=== PATIENT | male | born 1945 | race Caucasian/White ===

== ENCOUNTER 2019-04-09 01:39 | Emergency (ER) | payer OTHER ==
[~2019-04-09] VITALS: Ht 175.3 cm; Wt 81.6 kg
[~2019-04-09 01:39] MED LIST: ALBU0.084 NEB; ALBUAER3 IN; BUPR150T42 PO; BUPR1TAB11 PO; CHOL400C12 PO; CYAN100056 PO; FLUN0.02; FORMPOW9 INH; LORA-352 PO; TIOTCAP INH; [UNRECOGNIZED DRUG - CODE] XX
[2019-04-09 08:46] VITALS: BP 155/75
[2019-04-09] MEDS ORDERED: NEOMYCIN-BACITRACIN-POLYM UNITDOSE PKG TOP OINT TOP ONE (10:00)
== END 2019-04-09 10:05 | disposition home or self-care (01) ==
LOC: EDBD 01:39 → ER 01:39
DX: S09.90XA Unspecified injury of head, initial encounter (principal); J44.9 Chronic obstructive pulmonary disease, unspecified; F17.210 Nicotine dependence, cigarettes, uncomplicated; W19.XXXA Unspecified fall, initial encounter; Y93.89 Activity, other specified; Y99.8 Other external cause status; Y92.89 Other specified places as the place of occurrence of the external cause
CPT/HCPCS: 70450; 72125

== ENCOUNTER 2024-09-09 23:29 | Inpatient (IN) | payer OTHER, MEDICARE ==
[~2024-09-09] VITALS: Ht 170.2 cm; Wt 60.1 kg
[~2024-09-09 23:29] MED LIST changes: +BUPR-133 PO; -BUPR1TAB11 PO; -LORA-352 PO; +LORA10TA6 PO
--- NOTE | 2024-09-09 23:56 | ED.PDOC ---
History of Present Illness HPI Comments 79-year-old comes to ER via EMS for generalized weakness. Patient has history of COPD. Was noted for the past 4 days, patient has been generally weak, with loss of appetite, decreased urine output, and no bowel movements for the past 4 days. Patient has been short of breath. Patient had a trip and fall earlier today, and hit his head the floor. Abrasion on his forehead. Chief Complaint: General Weakness Time Seen by MD: 23:55 Primary Care Provider: [facility] Reviewed Notes: Natural Developer Notes Allergies: Coded Allergies: NO KNOWN ALLERGIES (Unverified , 10/10/14) Home Meds Reported Medications Mometasone Furoate (MOMETASONE FUROATE) Pow, 1 XX BID, POW 10/11/14 Loratadine (Loratadine) 10 Mg Tab, 10 MG PO DAILY, TAB 10/11/14 Formoterol Fumarate (Formoterol Fumarate) Fumarate Pow, 12 MCG INH BID, POW 10/11/14 Flunisolide (Nasal) (Flunisolide) 0.025 % Spr, 2 SPRAY NA BID, #25 ML 3 Refills 10/11/14 Cyanocobalamin (B-12) 1,000 Mcg Cap, 1000 MCG PO DAILY, CAP 10/11/14 Cholecalciferol (D3) 400 Unit Cap, 400 UNIT PO DAILY, CAP 10/11/14 Bupropion Hcl (Bupropion Hcl Er) 150 Mg Tab, 1 TAB PO BID, #60 TAB 5 Refills 10/11/14 Bupropion Hcl (Budeprion Sr) 150 Mg Tab, 150 MG PO DAILY, #3 TAB 10/11/14 Albuterol Sulfate (Albuterol Sulfate) 0.083 % Neb, 1 VIAL NEB Q4HPRN, #50 VIAL 10/11/14 Albuterol Sulfate (VENTOLIN MDI) 90 Mcg Ih, 90 MCG IN QID 10/11/14 Tiotropium [place] Monohydrate (Spiriva Handihaler) Handihlr Cap, 1 CAP INH QID, #30 CAP 3 Refills 10/11/14 Information Source: Patient, Emergency Med Personnel Mode of Arrival: EMS Severity: Moderate Timing: Days Duration: Since onset Prehospital treatment: None Medication Refill: For: Other Past Medical History PAST MEDICAL HISTORY: Asthma, COPD, Depression Surgical History: Tonsillectomy Family History Family History: Reviewed,noncontributory to illness Social History Smoker: Cigarettes, Less Than 1 Pack/Day Alcohol: Occasionally Drugs: Denies Drug Use Lives In: Home Constitutional: reports: weakness; denies: chills, diaphoresis, fatigue, fever, malaise, sweats, others EENTM: denies: blurred vision, double vision, ear bleeding, ear discharge, ear drainage, ear pain, ear ringing, eye pain, eye redness, hearing loss, mouth pain, mouth swelling, nasal discharge, nose bleeding, nose congestion, nose pain, photophobia, tearing, throat pain, throat swelling, voice changes, others Respiratory: reports: SOB at rest, shortness of breath; denies: cough, hemoptysis, orthopnea, SOB with excertion, stridor, wheezing, others Cardiovascular: denies: chest pain, dizzy spells, diaphoresis, Dyspnea on exertion, edema, irregular heart beat, left arm pain, lightheadedness, palpit ations, PND, syncope, others Gastrointestinal: reports: constipated, nausea, poor appetite; denies: abdomen distended, abdominal pain, blood streaked bowels, diarrhea, dysphagia, difficulty swallowing, hematemesis, melena, poor fluid intake, rectal bleeding, rectal pain, vomiting, others Genitourinary: denies: burning, dysuria, flank pain, frequency, hematuria, incontinence, penile discharge, penile sore, pain, testicle pain, testicle swelling, urgency, others Neurological: reports: headache; denies: dizziness, fainting, left sided numbness, left sided weakness, numbness, paresthesia, pre-existing deficit, righ t sided numbness, right sided weakness, seizure, speech problems, tingling, tremors, weakness, others Musculoskeletal: denies: back pain, gout, joint pain, joint swelling, muscle pain, muscle stiffness, neck pain, others Integumetry: reports: others (Abrasion forehead); denies: bruises, change in color, change in hair/nails, dryness, laceration, lesions, lumps, rash, wounds Allergic/Immunocompromised: denies: Difficulty Healing, Frequent Infections, Hives, Itching, others Hematologic/Lymphatic: denies: anemia, blood clots, easy bleeding, easy bruising, swollen glands, others Endocrine: denies: excessive hunger, excessive sweating, excessive thirst, excessive urination, flushing, intolerance to cold, intolerance to heat, unexplained weight gain, unexplained weight loss, others Psychiatric: denies: anxiety, bipolar disorder, depression, hopeless, panic disorder, schizophrenia, sleepless, suicidal, others Physical Exam General Appearance: No Apparent Distress, Normal HEENT: Normal ENT Inspection, Pharynx Normal, TMs Normal Neck: Full Range of Motion, Non-Tender, Normal, Normal Inspection Respiratory: Chest Non-Tender, Lungs Clear, No Accessory Muscle Use, No Respiratory Distress, Normal Breath Sounds Cardiovascular: No Edema, No JVD, No Murmur, No Gallop, Normal Peripheral Pulses, Regular Rate/Rhythm Breast Exam: Deferred Gastrointestinal: No Organomegaly, Non Tender, No Pulsatile Mass, Normal Bowel Sounds, Soft Genitalia: Deferred Pelvic: Deferred Rectal: Deferred Extremities: No calf tenderness, Normal capillary refill, Normal inspection, Normal range of motion, Non-tender, No pedal edema Musculoskeletal : Apperance: Normal Neurologic: Alert, airplane technician II-XII nml as Tested, No Motor Deficits, Normal Affect, Normal Mood, No Sensory Deficits Cerebellar Function: Normal Reflexes: Normal Skin: Dry, Normal Color, Warm, Other (Abrasion forehead) Lymphatic: No Adenopathy Was a procedure done? Was a procedure done?: No Differential Dx Considerations may include: Anemia, electrolyte imbalance, dehydration, COPD, weakness X-Ray, Labs, Meds, VS Vital Signs Date Time Temp Pulse Resp B/P (MAP) Pulse Ox O2 Delivery O2 Flow Rate FiO2 09/10/24 00:46 20 93 Room Air* 0 21 09/09/24 23:40 92 09/09/24 23:29 98.3 95 16 192/82 (118) 92 Lab Test 09/10/24 03:10 09/10/24 01:18 09/10/24 00:45 09/09/24 23:55 Range/Units Lactic Acid Level Pending 2.1 H 0.4-2.0 mmol/L Troponin I High Sensitivity Pending 6 5 </=54 ng/L White Blood Count 35.6 *H 4.4-10.8 10^3/uL Red Blood Count 4.50 4.5-5.90 10^6/uL Hemoglobin 13.7 13.5-17.5 g/dL Hematocrit 40.4 L 41.0-53.0 % Mean Corpuscular Volume 89.8 80.0-100.0 fL Mean Corpuscular Hemoglobin 30.4 28.0-32.0 pg Mean Corpuscular Hemoglobin Concent 33.8 32.0-36.0 g/dL Red Cell Distribution Width 13.5 11.8-14.3 % Platelet Count 539 H 140-450 10^3/uL Mean Platelet Volume 6.5 L 6.9-10.8 fL Neutrophils (%) (Auto) 37.0-80.0 % Lymphocytes (%) (Auto) 10.0-50.0 % Monocytes (%) (Auto) 0.0-12.0 % Basophils (%) (Auto) 0.0-2.0 % Neutrophils # (Auto) 1.6-8.6 10 ^3/uL Lymphocytes # (Auto) 0.4-5.4 10 ^3/uL Monocytes # (Auto) 0-1.3 10 ^3/uL Differential Total Cells Counted 100.0 100 Neutrophils % (Manual) 93 H 37.0-80.0 Band Neutrophils % (Manual) 0 Lymphocytes % (Manual) 2 L 10.0-50.0 Monocytes % (Manual) 5 0-12 Eosinophils % (Manual) 0 0-7 Basophils % (Manual) 0 0.0-2.0 Metamyelocytes % (manual) 0 Myelocytes % (Manual) 0 Promyelocytes % (Manual) 0 Blast Cells % (Manual) 0 Reactive Lymphocytes 0 Platelet Estimate Increa Clumped Platelets Few Large Platelets Modera Sodium Level 120 L 136-145 mmol/L Potassium Level 4.3 3.5-5.1 mmol/L Chloride Level 89 L 98-107 mmol/L Carbon Dioxide Level 26 20-31 mmol/L Anion Gap 5 5-15 Blood Urea Nitrogen 22 9-23 mg/dL Creatinine 0.60 L 0.700-1.30 mg/dL Glomerular Filtration Rate Calc 98 >90 mL/min BUN/Creatinine Ratio 36.7 H 10.0-20.0 Serum Glucose 102 74-106 mg/dL Calcium Level 9.4 8.7-10.4 mg/dL B-Type Natriuretic Peptide 121.45 0-100 pg/mL Current Medications Medications (Trade) Dose Ordered Sig/Cathy Route Start Time Stop Time Status Last Admin Albuterol (Ventolin Medneb) 5 mg ONCE ONCE NEB 09/10/24 00:15 09/10/24 00:16 DC 09/10/24 00:46 Ipratropium [place] (Atrovent Medneb) 0.5 mg ONCE ONCE NEB 09/10/24 00:15 09/10/24 00:16 DC 09/10/24 00:46 Sodium Chloride 1,000 ml @ 1,000 mls/hr Q1H ONCE IV 09/10/24 01:00 09/10/24 01:59 DC 09/10/24 01:16 Cefepime HCl 50 ml @ 12.5 mls/hr ONCE ONCE IV 09/10/24 01:00 09/10/24 04:59 09/10/24 01:51 EXAM: CT HEAD WITHOUT CONTRAST FINDINGS: There is no evidence of acute intracranial hemorrhage, extra-axial collection, mass effect, midline shift, herniation or hydrocephalus. The ventricles, sulci and cisterns are age appropriate. The mitchell-white differentiation is intact. Patchy periventricular and subcortical white matter hypoattenuation is nonspecific but may be related to small vessel ischemic disease. Complete opacification of left maxillary sinus. The visualized paranasal sinuses and mastoid air cells are clear. The surrounding soft tissues and osseous structures are unremarkable. IMPRESSION: No acute intracranial abnormality. Complete opacification of left maxillary sinus. The visualized paranasal sinuses and mastoid air cells are clear. CHEST RADIOGRAPH FINDINGS: Lines and Tubes: None Lungs: NOdular opaciites right upper lobe. CT suggested. Pleura: No effusion. No pneumothorax. Cardiomediastinal contours: Unremarkable Bones: No acute osseous abnormality. IMPRESSION: NOdular opaciites right upper lobe. CT suggested. Time of 1ST Reevaluation: 23:49 Reevaluation 1ST: Unchanged Patient Education/Counseling: Diagnosis, Treatment Family Education/Counseling: No Family Present Departure 1 Departure Time of Disposition: 03:20 (Patient with worsening generalized weakness. Found to have an elevated white count concerning for sepsis. X-rays concerning for multifocal pneumonia versus malignancy. We will empirically cover patient with antibiotics and admit for further workup.) Impression: Primary Impression: Generalized weakness Additional Impression: Multifocal pneumonia Disposition: ADMITTED INPATIENT Admit to: Med Surg Condition: Serious Critical Care Note Critical Care Time?: Yes Critical care comment: Sepsis Authorized and Performed by: Denny Tamayo MD Total critical care time: Approximately 42 minutes Due to a high probability of clinically significant, life threatening deterioration, the patient required my highest level of preparedness to intervene emergently and I personally spent this critical care time directly and personally managing the patient. This critical care time included obtaining a history; examining the patient; pulse oximetry; ordering and review of studies; arranging urgent treatment with development of a management plan; evaluation of patient's response to treatment; frequent reassessment; and, discussions with other providers. This critical care time was performed to assess and manage the high probability of imminent, life-threatening deterioration that could result in multi-organ failure. It was exclusive of separately billable procedures and treating other patients and teaching time. Please see my other sections and the rest of the note for further information on patient assessment and treatment. Stability Stability form required: No Heart Score Heart Score: Heart Score Response (Comments) Value History N/A 0 EKG N/A 0 Age N/A 0 Risk Factors N/A 0 Troponin N/A 0 Total 0 I personally scribed for DENNY TAMAYO MD ([email or web address]) on 09/09/24 at 23:56. Electronically submitted by Juan Cantu ([email or web address]). I personally scribed for DENNY TAMAYO MD ([email or web address]) on 09/10/24 at 03:13. Electronically submitted by Juan Cantu ([email or web address]). DENNY TAMAYO MD Sep 09, 2024 23:56
[2024-09-10] VITALS (10 sets, daily range): BP systolic 131–153; BP diastolic 61–73; PULSE 75–95; RESP 16–90; TEMP 97.5–97.8; O2SAT 0–98
[2024-09-10 00:21] LABS: Hematocrit 40.4 % (41.0-53.0); Hemoglobin 13.7 g/dL (13.5-17.5); Mean Corpuscular Hemoglobin 30.4 pg (28.0-32.0); Mean Corpuscular Hgb Conc. 33.8 g/dL (32.0-36.0); Mean Corpuscular Volume 89.8 fL (80.0-100.0); Platelet Count (auto) 539 10^3/uL (140-450); Red Cell Distribution Width 13.5 % (11.8-14.3)
[2024-09-10 00:23] LABS: Chloride 89 mmol/L (98-107); Potassium 4.3 mmol/L (3.5-5.1); Sodium 120 mmol/L (136-145)
[2024-09-10 00:24] LABS: Anion Gap 5 (5-15); Carbon Dioxide 26 mmol/L (20-31)
[2024-09-10 00:25] LABS: Calcium 9.4 mg/dL (8.7-10.4); White Blood Cell 35.6 10^3/uL (4.4-10.8)
[2024-09-10 00:29] LABS: BUN/Creatinine Ratio 36.7 (10.0-20.0); Blood Urea Nitrogen 22 mg/dL (9-23); Glucose 102 mg/dL (74-106)
[2024-09-10 00:30] LABS: Band Neutrophils % (manual) 0; Basophils % (manual) 0 (0.0-2.0); Blast Cells 0; Eosinophils % (manual) 0 (0-7); Metamyelocytes % 0; Myelocytes % 0; Promyelocytes % 0; Reactive Lymphocytes 0
[2024-09-10] MEDS: IPRATROPIUM BROM 0.5 MG/2.5ML INH SOL NEB ONE ×2 (00:46→10:16)
[2024-09-10] MEDS: ALBUTEROL SULF 2.5 MG/0.5ML(0.5%) NEB SOLN NEB ONE ×2 (00:46→10:17)
[2024-09-10] MEDS: SODIUM CHLORIDE 0.9% 1,000 ML IV ONE (01:16)
[2024-09-10 01:26] LABS: Lymphocytes % (manual) 2 (10.0-50.0); Monocytes % (manual) 5 (0-12)
[2024-09-10 01:27] LABS: Large Platelets MODERA; Platelet Estimate Increa
[2024-09-10] MEDS: CEFEPIME 2GM/50ML NS 50 ML IV ONE (01:51)
[2024-09-10 01:55] LABS: Lactic Acid w/Reflex 2.1 mmol/L (0.4-2.0)
--- NOTE | 2024-09-10 02:14 | DVH ---
CHEST RADIOGRAPH Indication:fall Technique: Single frontal view of the chest was obtained Comparison: None FINDINGS: Lines and Tubes: None Lungs: NOdular opaciites right upper lobe. CT suggested. Pleura: No effusion. No pneumothorax. Cardiomediastinal contours: Unremarkable Bones: No acute osseous abnormality. IMPRESSION: NOdular opaciites right upper lobe. CT suggested.
--- NOTE | 2024-09-10 02:22 | DVH ---
EXAM: CT HEAD WITHOUT CONTRAST INDICATION: fall TECHNIQUE: CT of the head without intravenous contrast. Radiation Dose Information: CT Dose: CTDI volume is 25 mGy. Dose-length product is 250 mGy*cm The dose indicators for CT are the volume Computed Tomography (CT) Dose Index (CTDIvol) and the Dose Length Product (DLP), and are measured in units of mGy and mGy-cm, respectively. These indicators are not patient dose, but values generated from the CT scanner acquisition factors. The report includes radiation exposure data for exposures received during this examination. COMPARISON: None FINDINGS: There is no evidence of acute intracranial hemorrhage, extra-axial collection, mass effect, midline s hift, herniation or hydrocephalus. The ventricles, sulci and cisterns are age appropriate. The mitchell-white differentiation is intact. Patchy periventricular and subcortical white matter hypoattenuation is nonspecific but may be related to small vessel ischemic disease. Complete opacification of left maxillary sinus. The visualized paranasal sinuses and mastoid air cell s are clear. The surrounding soft tissues and osseous structures are unremarkable. IMPRESSION: No acute intracranial abnormality. Complete opacification of left maxillary sinus. The visualized paranasal sinuses and mastoid air cell s are clear.
[2024-09-10] MEDS: VANCOMYCIN 1GM/250ML KIT 200 ML IV ONE (03:23)
[2024-09-10] MEDS: IOHEXOL 300 MG/ML 100ML BOTTLE IJ ONE (03:44)
[2024-09-10] MEDS: ONDANSETRON HCL 4 MG/2 ML VIAL IV ONE (04:00)
[2024-09-10 04:54] LABS: Urine Bacteria None Seen /hpf (None Seen)
[2024-09-10 05:04] LABS: Urine Blood Negative /uL (Negative); Urine Clarity Clear (Clear); Urine Color Yellow (Yellow); Urine Mucus FEW (None Seen); Urine Protein, UAD 1+ (Negative); Urine Specific Gravity 1.031 (1.001-1.035); Urine Urobilinogen 2 mg/dL (Negative); Urine WBC 3 /hpf (0 - 3)
--- NOTE | 2024-09-10 05:44 | DVH ---
Examination: CXICT CLINICAL INDICATION: ;better evaluate x-ray findings DIREAS;Reason for Exam: Stretcher;Stretcher;Modes of Transportation D ITRANS;How is patient transported? ;y OECTB;Has the patient had a recent BUN/CREAT? ;N OECTC;Has the patient had IV contrast within last 48 hours? ;Y OECTN;Has patient been NPO for at least 4 hours COMPARISON: None. CONTRAST USED: Intravenous TECHNIQUE: A post-contrast CT study of the chest is performed. CT scan was done according to ALARA (As Low as Reasonably Achievable). Multiplanar reconstructions were obtained. FINDINGS: Lower neck and thyroid: Mild thyromegaly. Lungs and pleura: Extensive centrilobular and paraseptal emphysema is seen in both lungs. Fibro-atelectatic opacities are seen in the right middle lobe, lingula and both lower lobes. No pulmonary nodules are detected. Multiple calcified pleural plaques are seen along the right upper lobe and posterior aspects of the l ower lobes of both lungs. Minimal bilateral pleural effusions noted, with underlying subsegmental atelectasis. Mediastinum, Heart and great vessels: The trachea and the mainstem bronchi are normal. No significa nt mediastinal lymphadenopathy is detected. The mediastinal vasculature appears normal. Cardiac siz e appears normal. No obvious pericardial effusion. Mild atherosclerotic wall calcification is seen along the ascending aorta, arch of the aorta and desc ending thoracic aorta. Mild coronary artery calcification is noted. Aberrant right subclavian artery is noted. Chest wall and Axillae: Appear normal. Osseous structures: Moderate degenerative changes are seen in the thoracic spine. Moderate degenera tive changes are seen along the bilateral sternoclavicular joints and manubriosternal joint. A few peripherally enhancing pockets of fluid collections are seen in the bilateral paravertebral spa gaudencio, largest measuring 16 x 5.6 x 2.9 cm on left side, extending from T7 to L2 vertebral levels. Visualized Upper Abdomen: Gallbladder: Cholelithiasis without evidence of cholecystitis. Adrenal glands: Appear normal. Liver: Mild hepatic steatosis. Spleen: Splenic artery calcification noted. Spleen appears normal. Pancreas: Appears normal. Kidneys: Mild bilateral perinephric fat stranding is noted. IMPRESSION: 1. Mild thyromegaly. 2. Extensive centrilobular and paraseptal emphysema is seen in both lungs. 3. Fibro-atelectatic opacities are seen in the right middle lobe, lingula and both lower lobes. 4. Multiple calcified pleural plaques are seen along the right upper lobe and posterior aspects of t he lower lobes of both lungs. 5. Minimal bilateral pleural effusions noted, with underlying subsegmental atelectasis. 6. Mild atherosclerotic wall calcification is seen along the ascending aorta, arch of the aorta and descending thoracic aorta. 7. Mild coronary artery calcification is noted. 8. Aberrant right subclavian artery is noted. 9. Moderate degenerative changes are seen in the thoracic spine. Moderate degenerative changes are seen along the bilateral sternoclavicular joints and manubriosternal joint. 10. A few peripherally enhancing pockets of fluid collections are seen in the bilateral paravertebra l spaces, extending from T7 to L2 vertebral levels. 11. Cholelithiasis without evidence of cholecystitis. 12. Mild hepatic steatosis. 13. Mild bilateral perinephric fat stranding is noted. Correlation with renal function tests is sug gested. Electronically Signed 09/10/2024 05:36 Devan Alegre
[2024-09-10] MEDS ORDERED: VANCOMYCIN PER PHARMACY 0 MG IV SCH (06:30)
[2024-09-10] MEDS ORDERED: NITROGLYCERIN 0.4 MG SL TAB SL PRN (06:30)
--- NOTE | 2024-09-10 06:44 | DVHHP2 ---
History of Present Illness Reason for Visit: Generalized weakness History of Present Illness The patient is a 79-year-old male with past medical history of asthma, COPD, and depression who presented to [facility] ED for evaluation of generalized weakness. Patient was noted 4 days of generalized weakness, loss of appetite, decreased urine output, no bowel movement, associated shortness of breaths, had trip and fall earlier today hitting his on the floor with sustained abrasion on his forehead. Patient was seen and evaluated in the ED, laboratory data shows WBC 35.6, platelets 539, sodium 120, potassium 4.2, BUN 22, creatinine 0.60, glucose 102, BNP 121.45, calcium nine five, blood pressure 192/82 trending down to 152/68, heart rate 92 temperature 98.3 F, O2 saturation 93% on oxygen. Head CT showed no acute intracranial abnormality. Chest CT revealing thyromegaly extensive centrilobular and paraseptal emphysema is seen in both lungs, fibro atelectatic opacities seen in the right middle lobes, lingula and both lower lobes, please review chest CT results. Patient was on IV antibiotic regimen vancomycin, please see medication orders section in the computer. On my assessment, patient denies chest pain, no headache, no dizziness, no diaphoresis currently on oxygen, no nausea, no vomiting, no fever, no chills. Patient was admitted for further evaluation and medical management. Past Medical History Asthma, COPD, Depression Past Surgical History Tonsillectomy Family History Reviewed, noncontributory to the management of this case. Past Social History Patient lives at home, smokes cigarettes less than 1 pack/day, drinks alcohol occasionally, denies illicit drugs abuse. Review of Systems Constitutional: Yes: Weakness; No: Fever, Chills, Sweats, Malaise, Other Eyes: No: Pain, Vision change, Conjunctivae inflammation, Eyelid inflammation, Other, Redness ENT: No: Ear pain, Ear discharge, Nose pain, Nose discharge, Nose congestion, Mouth pain, Mouth swelling, Throat pain, Throat swelling, Other Respiratory: Shortness of breath, SOB with excertion, Other (SOB at rest); No: Cough, Dry, Wheezing, Hemoptysis, Pleuritic Pain, Sputum, Wheezing Cardiovascular: No: Chest Pain, Palpitations, Orthopnea, Paroxysmal Noc. Dyspnea, Edema, Lt Headedness, Other Gastrointestinal: Nausea, Constipation, Other (Poor appetite); No: Vomiting, Abdominal Pain, Diarrhea, Melena, Hematochezia Genitourinary: No Dysuria, No Frequency, No Incontinence, No Hematuria, No Retention, No Other Musculoskeletal: No: other, neck pain, shoulder pain, arm pain, back pain, hand pain, leg pain, foot pain Skin: No: Rash, Lesions, Jaundice, Bruising, Other Neurological: Other (Headache); No: Weakness, Numbness, Incoordination, Change in speech, Confusion, Seizures Allergies: Coded Allergies: NO KNOWN ALLERGIES (Unverified , 10/10/14) Exam Vital Signs Vital Signs Date Time Temp Pulse Resp B/P (MAP) Pulse Ox O2 Delivery O2 Flow Rate FiO2 09/10/24 04:00 101 09/10/24 00:46 20 93 Room Air* 0 21 09/09/24 23:29 98.3 192/82 (118) General Appearance: Alert, Oriented X3, Cooperative, No acute distress HEENT: Atraumatic, PERRLA, EOMI, Mucous membr. moist/pink Respiratory: Clear to auscultation, Normal air movement Cardiovascular: Regular rate, Normal S1, Normal S2, No murmurs Abdominal: Normal bowel sounds, Soft, No tenderness, No hepatospenomegaly, No masses Extremities: No clubbing, No cyanosis, No edema, Normal pulses, No tenderness/swelling Skin: No rashes, No breakdown, No significant lesion Neuro: Normal speech, Normal tone, Sensation intact, Cranial nerves 3-12 NL, Reflexes 2+, Other (Generalized weakness) Psych/Mental Status: Mental status NL, Mood NL Labs/Xrays Labs Test 09/10/24 04:47 09/10/24 03:10 09/09/24 23:55 Range/Units Urine Color Yellow Yellow Urine Clarity Clear Clear Urine pH 6.0 5.0-9.0 Urine Specific [place] 1.031 1.001-1.035 Urine Protein 1+ H Negative Urine Ketones Trace Negative Urine Blood Negative Negative /uL Urine Nitrite Negative Negative Urine Bilirubin Negative Negative Urine Urobilinogen 2 H Negative mg/dL Urine Leukocyte Esterase Negative Negative /uL Urine RBC 3 0 - 3 /hpf Urine WBC 3 0 - 3 /hpf Urine Squamous Epithelial Cells None seen <5 /hpf Urine Bacteria None seen None Seen /hpf Urine Mucus Few None Seen Urine Glucose Normal Normal mg/dL Lactic Acid Level 1.5 0.4-2.0 mmol/L Troponin I High Sensitivity 5 </=54 ng/L White Blood Count 35.6 *H 4.4-10.8 10^3/uL Red Blood Count 4.50 4.5-5.90 10^6/uL Hemoglobin 13.7 13.5-17.5 g/dL Hematocrit 40.4 L 41.0-53.0 % Mean Corpuscular Volume 89.8 80.0-100.0 fL Mean Corpuscular Hemoglobin 30.4 28.0-32.0 pg Mean Corpuscular Hemoglobin Concent 33.8 32.0-36.0 g/dL Red Cell Distribution Width 13.5 11.8-14.3 % Platelet Count 539 H 140-450 10^3/uL Mean Platelet Volume 6.5 L 6.9-10.8 fL Neutrophils (%) (Auto) 37.0-80.0 % Lymphocytes (%) (Auto) 10.0-50.0 % Monocytes (%) (Auto) 0.0-12.0 % Basophils (%) (Auto) 0.0-2.0 % Neutrophils # (Auto) 1.6-8.6 10 ^3/uL Lymphocytes # (Auto) 0.4-5.4 10 ^3/uL Monocytes # (Auto) 0-1.3 10 ^3/uL Differential Total Cells Counted 100.0 100 Neutrophils % (Manual) 93 H 37.0-80.0 Band Neutrophils % (Manual) 0 Lymphocytes % (Manual) 2 L 10.0-50.0 Monocytes % (Manual) 5 0-12 Eosinophils % (Manual) 0 0-7 Basophils % (Manual) 0 0.0-2.0 Metamyelocytes % (manual) 0 Myelocytes % (Manual) 0 Promyelocytes % (Manual) 0 Blast Cells % (Manual) 0 Reactive Lymphocytes 0 Platelet Estimate Increa Clumped Platelets Few Large Platelets Modera Sodium Level 120 L 136-145 mmol/L Potassium Level 4.3 3.5-5.1 mmol/L Chloride Level 89 L 98-107 mmol/L Carbon Dioxide Level 26 20-31 mmol/L Anion Gap 5 5-15 Blood Urea Nitrogen 22 9-23 mg/dL Creatinine 0.60 L 0.700-1.30 mg/dL Glomerular Filtration Rate Calc 98 >90 mL/min BUN/Creatinine Ratio 36.7 H 10.0-20.0 Serum Glucose 102 74-106 mg/dL Calcium Level 9.4 8.7-10.4 mg/dL B-Type Natriuretic Peptide 121.45 0-100 pg/mL PATIENT: BUSHRA GARCIA ACCT: [id number] UNIT: [id number] : 1945 LOC: ER ROOM / BED: / AGE / SEX: 79 / M ADM STATUS: REG ER SERVICE [id number] ORDERING PHYSICIAN: DENNY MÁRQUEZ MD PROCEDURE(s): HWOCT - HEAD WITHOUT CONTRAST REASON: fall ORDER NUMBER(s): [id number], ACCESSION NUMBER(s): [id number] EXAM: CT HEAD WITHOUT CONTRAST INDICATION: fall TECHNIQUE: CT of the head without intravenous contrast. Radiation Dose Information: CT Dose: CTDI volume is 25 mGy. Dose-length product is 250 mGy*cm The dose indicators for CT are the volume Computed Tomography (CT) Dose Index (CTDIvol) and the Dose Length Product (DLP), and are measured in units of mGy and mGy-cm, respectively. These indicators are not patient dose, but values generated from the CT scanner acquisition factors. The report includes radiation exposure data for exposures received during this examination. COMPARISON: None FINDINGS: There is no evidence of acute intracranial hemorrhage, extra-axial collection, mass effect, midline shift, herniation or hydrocephalus. The ventricles, sulci and cisterns are age appropriate. The mitchell-white differentiation is intact. Patchy periventricular and subcortical white matter hypoattenuation is nonspecific but may be related to small vessel ischemic disease. Complete opacification of left maxillary sinus. The visualized paranasal sinuses and mastoid air cells are clear. The surrounding soft tissues and osseous structures are unremarkable. IMPRESSION: No acute intracranial abnormality. Complete opacification of left maxillary sinus. The visualized paranasal sinuses and mastoid air cells are clear. ORDERING PHYSICIAN: DENNY MÁRQUEZ MD PROCEDURE(s): CXICT - CHEST WITH CONTRAST REASON: better evaluate x-ray findings ORDER NUMBER(s): [id number], ACCESSION NUMBER(s): [id number] Examination: CXICT CLINICAL INDICATION: ;better evaluate x-ray findings DIREAS;Reason for Exam: Stretcher;Stretcher;Modes of Transportation DITRANS;How is patient transported? ;y OECTB;Has the patient had a recent BUN/CREAT? ;N OECTC;Has the patient had IV contrast within last 48 hours? ;Y OECTN;Has patient been NPO for at least 4 hours COMPARISON: None. CONTRAST USED: Intravenous TECHNIQUE: A post-contrast CT study of the chest is performed. CT scan was done according to ALARA (As Low as Reasonably Achievable). Multiplanar reconstructions were obtained. FINDINGS: Lower neck and thyroid: Mild thyromegaly. Lungs and pleura: Extensive centrilobular and paraseptal emphysema is seen in both lungs. Fibro-atelectatic opacities are seen in the right middle lobe, lingula and both lower lobes. No pulmonary nodules are detected. Multiple calcified pleural plaques are seen along the right upper lobe and posterior aspects of the lower lobes of both lungs. Minimal bilateral pleural effusions noted, with underlying subsegmental atelectasis. Mediastinum, Heart and great vessels: The trachea and the mainstem bronchi are normal. No significant mediastinal lymphadenopathy is detected. The mediastinal vasculature appears normal. Cardiac size appears normal. No obvious pericardial effusion. Mild atherosclerotic wall calcification is seen along the ascending aorta, arch of the aorta and descending thoracic aorta. Mild coronary artery calcification is noted. Aberrant right subclavian artery is noted. Chest wall and Axillae: Appear normal. Osseous structures: Moderate degenerative changes are seen in the thoracic spine. Moderate degenerative changes are seen along the bilateral sternoclavicular joints and manubriosternal joint. A few peripherally enhancing pockets of fluid collections are seen in the bilateral paravertebral spaces, largest measuring 16 x 5.6 x 2.9 cm on left side, extending from T7 to L2 vertebral levels. Visualized Upper Abdomen: Gallbladder: Cholelithiasis without evidence of cholecystitis. Adrenal glands: Appear normal. Liver: Mild hepatic steatosis. Spleen: Splenic artery calcification noted. Spleen appears normal. Pancreas: Appears normal. Kidneys: Mild bilateral perinephric fat stranding is noted. IMPRESSION: 1. Mild thyromegaly. 2. Extensive centrilobular and paraseptal emphysema is seen in both lungs. 3. Fibro-atelectatic opacities are seen in the right middle lobe, lingula and both lower lobes. 4. Multiple calcified pleural plaques are seen along the right upper lobe and posterior aspects of the lower lobes of both lungs. 5. Minimal bilateral pleural effusions noted, with underlying subsegmental atelectasis. 6. Mild atherosclerotic wall calcification is seen along the ascending aorta, arch of the aorta and descending thoracic aorta. 7. Mild coronary artery calcification is noted. 8. Aberrant right subclavian artery is noted. 9. Moderate degenerative changes are seen in the thoracic spine. Moderate degenerative changes are seen along the bilateral sternoclavicular joints and manubriosternal joint. 10. A few peripherally enhancing pockets of fluid collections are seen in the bilateral paravertebral spaces, extending from T7 to L2 vertebral levels. 11. Cholelithiasis without evidence of cholecystitis. 12. Mild hepatic steatosis. 13. Mild bilateral perinephric fat stranding is noted. Correlation with renal function tests is suggested. ORDERING PHYSICIAN: DENNY MÁRQUEZ MD PROCEDURE(s): CXRP - CHEST PORTABLE REASON: fall ORDER NUMBER(s): [id number], ACCESSION NUMBER(s): [id number] CHEST RADIOGRAPH Indication:fall Technique: Single frontal view of the chest was obtained Comparison: None FINDINGS: Lines and Tubes: None Lungs: NOdular opaciites right upper lobe. CT suggested. Pleura: No effusion. No pneumothorax. Cardiomediastinal contours: Unremarkable Bones: No acute osseous abnormality. IMPRESSION: NOdular opaciites right upper lobe. CT suggested. Assessment/Plan Assessment/Plan Generalized weakness Hyponatremia Hypertension Multifocal pneumonia Leukocytosis, unspecified Plan 1. Admit to telemetry unit 2. Breathing treatment 3. Pain control management 4. IV antibiotic management 5. Management of fluids and electrolytes 6. Consultation for hospitalist 7. Diagnostic test chest CT 8. DVT prophylaxis -on aspirin 9. Repeat labs CBC, CMP in a.m. 10. Home medication reviewed and reconciled 11. Continue with current medical management 12. Treatment plan discussed with patient and RN. Patient verbalized understanding. Plan discussed with: Patient, Other (RN) My Orders Orders - JANIE LÓPEZ DNP Procedure Category Date Status Time Complete Blood Count LAB 09/10/24 Transmitted 06:30 Comprehensive LAB 09/10/24 Transmitted Metabolic Panel 06:30 Albuterol Medneb PHA 09/10/24 Transmitted (Ventolin Medneb) 06:30 Ipratropium Medneb PHA 11/9/24 Transmitted (Atrovent Medneb) 06:30 Azithromycin 500mg/ PHA 09/10/24 Transmitted 250ml (Zithromax 50 10:00 Vancomycin Per PHA 09/10/24 Transmitted Pharmacy 06:30 Aspirin Tablet [facility] 09/10/24 Transmitted 10:00 Admit ADMIT 09/10/24 Transmitted 06:30 Allergies [facility] 09/10/24 Transmitted 06:30 Code Status CODE 09/10/24 Verified 06:30 0.9% Ns 1000 Ml PHA 09/10/24 Verified 06:30 Oxygen Per Hour RT 09/10/24 Verified 06:30 Hydrocodone-Acet [facility] 09/10/24 Verified 5/325mg Tab ([place] 06:30 Ondansetron Hcl [facility] 09/10/24 Verified (Zofran) 06:30 Docusate Sodium [facility] 09/10/24 Verified Capsule (Colace 06:30 Fall Risk Precautions [facility] 09/10/[address] 06:30 Complete Blood Count LAB 09/11/24 Verified 04:00 Comprehensive LAB 09/11/24 Verified Metabolic Panel 04:00 Cardiac DIET 09/10/24 Verified Diet-2gna,Lofat,Lochol Breakfast Condition: Serious [facility] 09/10/24 Verified 06:30 Acetaminophen Tablet [facility] 09/10/24 Verified (Tylenol Tablet) 06:30 Sequential [facility] 09/10/24 Verified Compression Device Nitroglycerin [facility] 09/10/24 Verified Sublingual (Ntrostat 06:30 Morphine Sulfate [facility] 09/10/24 Verified Injection 06:30 Notify Of Changes [facility] 09/10/24 Verified From Base 06:30 Product Safety Consultant For [facility] 09/10/24 Verified 24 Hours 06:30 Emergency Dysrhythmia [facility] 09/10/24 Verified Protocol 06:30 Rhythm Strips Once [facility] 09/10/24 Verified Every Shift 06:30 Oxygen By Nasal RT 09/10/24 Verified Cannula 06:30 Problem List: (1) Generalized weakness (2) Hyponatremia (3) Hypertension (4) Multifocal pneumonia (5) Leukocytosis, unspecified Date of Service: Sep 10, 2024 Billing Provider: JANIE LÓPEZ DNP Common Visit Codes: [id number] INP/OBS CARE (HIGH) JANIE LÓPEZ DNP Sep 10, 2024 06:44
[2024-09-10] MEDS: AZITHROMYCIN 500MG/ 250ML 250 ML IV ONE (06:45)
[2024-09-10 07:30] LABS: Basophils # (auto) 0.2 10 ^3/uL (0-0.2); Basophils % (auto) 0.6 % (0.0-2.0); Eosinophils # (auto) 0 10 ^3/uL (0-0.8); Eosinophils % (auto) 0.1 % (0.0-7.0); Hematocrit 40.1 % (41.0-53.0); Hemoglobin 12.9 g/dL (13.5-17.5); Lymphocytes # (auto) 0.3 10 ^3/uL (0.4-5.4); Lymphocytes % (auto) 0.9 % (10.0-50.0); Mean Corpuscular Hemoglobin 29.3 pg (28.0-32.0); Mean Corpuscular Hgb Conc. 32.2 g/dL (32.0-36.0); Mean Corpuscular Volume 91.1 fL (80.0-100.0); Monocytes # (auto) 2.2 10 ^3/uL (0-1.3); Monocytes % (auto) 5.7 % (0.0-12.0); Neutrophils # (auto) 35.3 10 ^3/uL (1.6-8.6); Neutrophils % (auto) 92.7 % (37.0-80.0); Platelet Count (auto) 522 10^3/uL (140-450); Red Cell Distribution Width 13.7 % (11.8-14.3)
[2024-09-10 07:32] LABS: White Blood Cell 38.1 10^3/uL (4.4-10.8)
[2024-09-10 07:33] LABS: Alanine Aminotransferase 28 U/L (7-40); Albumin 3.1 g/dL (3.2-4.8); Alkaline Phosphatase 124 U/L (46-116); Anion Gap 5 (5-15); Aspartate Aminotransferase 25 U/L (13-40); Blood Urea Nitrogen 22 mg/dL (9-23); Calcium 8.9 mg/dL (8.7-10.4); Carbon Dioxide 26 mmol/L (20-31); Chloride 91 mmol/L (98-107); Glucose 102 mg/dL (74-106); Potassium 3.9 mmol/L (3.5-5.1); Sodium 122 mmol/L (136-145)
[2024-09-10 07:34] LABS: Bilirubin, Total 0.9 mg/dL (0.2-1.0); Total Protein 6.2 g/dL (5.7-8.2)
[2024-09-10] MEDS ORDERED: ACETAMINOPHEN 650 mg PER 20.3 mL UD PO ONE (07:45)
[2024-09-10] MEDS: SODIUM CHLORIDE 0.9% 1,000 ML IV SCH (07:50)
[2024-09-10] MEDS: ACETAMINOPHEN 325 MG TAB PO ONE (07:50)
[2024-09-10] MEDS: ASPirin 81 mg TAB PO SCH (10:04)
[2024-09-10] MEDS: VANCOMYCIN 1GM/250ML KIT 200 ML IV SCH (15:06)
[2024-09-10] MEDS: MORPHINE SULFATE INJ 2 MG/ml SYRG IV PRN (15:37)
[2024-09-10] MEDS: ALBUTEROL SULF 2.5 MG/0.5ML(0.5%) NEB SOLN NEB PRN (19:55)
[2024-09-10] MEDS: IPRATROPIUM BROM 0.5 MG/2.5ML INH SOL NEB PRN (19:55)
[2024-09-10] MEDS: AZITHROMYCIN 500MG/ 250ML 250 ML IV SCH (21:04)
[2024-09-11] VITALS (14 sets, daily range): BP systolic 134–158; BP diastolic 56–65; PULSE 79–93; RESP 17–20; TEMP 97.5–98.6; O2SAT 95–99
[2024-09-11] MEDS: DOCUSATE SOD 100 MG CAP PO PRN (00:17)
[2024-09-11 04:35] LABS: Hematocrit 37.8 % (41.0-53.0); Hemoglobin 12.8 g/dL (13.5-17.5); Mean Corpuscular Hemoglobin 30.4 pg (28.0-32.0); Mean Corpuscular Hgb Conc. 33.8 g/dL (32.0-36.0); Mean Corpuscular Volume 89.7 fL (80.0-100.0); Platelet Count (auto) 506 10^3/uL (140-450); Red Blood Cells 4.21 10^6/uL (4.5-5.90); Red Cell Distribution Width 13.6 % (11.8-14.3)
[2024-09-11 04:37] LABS: Alanine Aminotransferase 31 U/L (7-40); Alkaline Phosphatase 125 U/L (46-116); Anion Gap 5 (5-15); Blood Urea Nitrogen 18 mg/dL (9-23); Calcium 9.1 mg/dL (8.7-10.4); Carbon Dioxide 27 mmol/L (20-31); Chloride 91 mmol/L (98-107); Glucose 91 mg/dL (74-106); Sodium 123 mmol/L (136-145)
[2024-09-11 04:38] LABS: Albumin 3.1 g/dL (3.2-4.8); Aspartate Aminotransferase 30 U/L (13-40); Bilirubin, Total 0.9 mg/dL (0.2-1.0)
[2024-09-11 04:48] LABS: Basophils % (manual) 0 (0.0-2.0); Blast Cells 0; Eosinophils % (manual) 0 (0-7); Metamyelocytes % 0; Myelocytes % 0; Promyelocytes % 0; Reactive Lymphocytes 0
[2024-09-11 04:53] LABS: White Blood Cell 30.4 10^3/uL (4.4-10.8)
[2024-09-11] MEDS: HYDROcodone-ACET 5/325MG TAB PO PRN (05:30)
[2024-09-11] MEDS: hydrALAZINE HCL 20 MG/ML VL IV PRN (05:31)
[2024-09-11 05:54] LABS: Band Neutrophils % (manual) 3; Lymphocytes % (manual) 2 (10.0-50.0); Monocytes % (manual) 6 (0-12)
[2024-09-11 05:55] LABS: Giant Platelets Few; Large Platelets FEW; Platelet Estimate Increa
--- NOTE | 2024-09-11 13:45 | MEDREC ---
[facility] Intervention Section I [facility] Intervention: Review courses of therapy (PLEASE CONSIDER ADDING CEFTRIAXONE FOR BROADER COVERAGE ) JOHANN GARCIA PHARMACIST Sep 11, 2024 13:45
--- NOTE | 2024-09-11 15:49 | DVHPN2 ---
Subjective Resuming the gated the patient from today onwards who was under the care of the hospitalist team detail signed and obtained. Patient currently on broad- spectrum IV antibiotics for multifocal pneumonia. Reviewed: Care Plan Changes from previous H/P or p: No Changes Eyes: No Pain, No Vision change, No Conjunctivae inflammation, No Eyelid inflammation, No Other, No Redness ENT: No Ear pain, No Ear discharge, No Nose pain, No Nose discharge, No Nose congestion, No Mouth pain, No Mouth swelling, No Throat pain, No Throat swelling, No Other Cardiovascular: No Chest Pain, No Palpitations, No Orthopnea, No Paroxysmal Noc. Dyspnea, No Edema, No Lt Headedness, No Other Respiratory: No Cough, No Dry; Shortness of breath, SOB with excertion; No Wheezing, No Hemoptysis, No Pleuritic Pain, No Sputum; Other (SOB at rest) Gastrointestinal: Nausea; No Vomiting, No Abdominal Pain, No Diarrhea; C onstipation; No Melena, No Hematochezia; Other (Poor appetite) Genitourinary: No Dysuria, No Frequency, No Incontinence, No Hematuria, No Retention, No Other Musculoskeletal: No other, No neck pain, No shoulder pain, No arm pain, No back pain, No hand pain, No leg pain, No foot pain Skin: No Rash, No Lesions, No Jaundice, No Bruising, No Other Objective Vitals Vital Signs Date Time Temp Pulse Resp B/P (MAP) Pulse Ox O2 Delivery O2 Flow Rate FiO2 09/11/24 14:48 87 20 99 09/11/24 14:43 Nasal Cannula* 2 28 09/11/24 13:00 97.5 137/57 (83) 97.5 Intake/Output Intake and Output 09/11/24 07:00 Intake Total 1580 ml Output Total 250 ml Balance 1330 ml Intake Oral 500 ml IV Total 1080 ml Output Urine Total 250 ml # Voids 2 Exam HEENT pupils are reactive Neck was supple CV system S2 regular rate and rhythm Respiratory vitals given his pes tendinitis lung bases GI positive bowel sound Extremity no pedal edema [employer] no motor deficit Medications Current Medications Medications Dose Ordered Sig/Cathy Route Start Time Stop Time Status Last Admin Dose Admin Albuterol 2.5 mg Q4HPRN PRN NEB 09/10/24 06:30 09/11/24 14:43 2.5 MG Ipratropium [place] 0.5 mg Q4HPRN PRN NEB 09/10/24 06:30 09/11/24 14:43 0.5 MG Azithromycin 250 ml @ 125 mls/hr DAILY@2200 IV 09/10/24 22:00 09/10/24 21:04 125 MLS/HR Vancomycin HCl 0 ml @ 0 mls/hr UD IV 09/10/24 06:30 Aspirin 81 mg DAILY PO 09/10/24 10:00 09/11/24 09:53 81 MG Sodium Chloride 1,000 ml @ 60 mls/hr [id number] IV 09/10/24 06:30 09/10/24 07:50 60 MLS/HR Acetaminophen/ Hydrocodone Bitart 1 tab Q4HP PRN PO 09/10/24 06:30 09/11/24 09:54 1 TAB Ondansetron HCl 4 mg Q4HP PRN IV 09/10/24 06:30 Docusate Sodium 100 mg BIDPRN PRN PO 09/10/24 06:30 09/11/24 09:53 100 MG Acetaminophen 650 mg Q6HP PRN PO 09/10/24 06:30 Nitroglycerin 0.4 mg Q5MINP PRN SL 09/10/24 06:30 Morphine Sulfate 2 mg Q30M PRN IV 09/10/24 06:30 09/10/24 15:37 2 MG Hydralazine HCl 10 mg Q6HP PRN IV 09/10/24 07:15 09/11/24 05:31 10 MG Vancomycin HCl 200 ml @ 200 mls/hr Q10H IV 09/10/24 14:00 09/11/24 10:41 200 MLS/HR Ceftriaxone Sodium 50 ml @ 100 mls/hr DAILY@09 IV 09/11/24 15:45 UNV Laboratory Results Laboratory Tests 09/11/24 03:45 Chemistry Test 09/11/24 03:45 Albumin 3.1 g/dL (3.2-4.8) L Calcium Level 9.1 mg/dL (8.7-10.4) Total Protein 6.0 g/dL (5.7-8.2) LFT Test 09/11/24 03:45 Alanine Aminotransferase (ALT) 31 U/L (7-40) Alkaline Phosphatase 125 U/L (46-116) H Aspartate Amino Transferase (AST) 30 U/L (13-40) Total Bilirubin 0.9 mg/dL (0.2-1.0) Urinalysis Test 09/10/24 04:47 Urine Color Yellow (Yellow) Urine Clarity Clear (Clear) Urine pH 6.0 (5.0-9.0) Urine Specific [place] 1.031 (1.001-1.035) Urine Protein 1+ (Negative) H Urine Ketones Trace (Negative) Urine Blood Negative /uL (Negative) Urine Nitrite Negative (Negative) Urine Bilirubin Negative (Negative) Urine Urobilinogen 2 mg/dL (Negative) H Urine Leukocyte Esterase Negative /uL (Negative) Urine RBC 3 /hpf (0 - 3) Urine WBC 3 /hpf (0 - 3) Urine Squamous Epithelial Cells None seen /hpf (<5) Urine Bacteria None seen /hpf (None Seen) Urine Mucus Few (None Seen) Urine Glucose Normal mg/dL (Normal) Microbiology Microbiology Date/Time Source Procedure Growth Status 09/10/24 01:18 Blood Blood Culture - Preliminary NO GROWTH AFTER 24 HOURS OF INCUBATION. Resulted Assessment/Plan Assessment/Plan Assessment/Plan: 79-year-old male with known history of COPD who initially presented to the hospital with generalized weakness loss of appetite decreased urine output found to have 1. Multifocal pneumonia 2. Acute hypoxic/COPD secondary to multifocal pneumonia 3. Hyponatremia 4. Leukocytosis likely reactive secondary to multifocal pneumonia but hematology: Disorder can not be excluded 5. Hypertension 6. Sacrococcygeal pressure ulcer -continue broad-spectrum IV antibiotics pulmonary consultation, Hematology consultation- -she was continued to be evaluation and treatment Wound consult for possibly stage II sacrococcygeal wound. Plan discussed with: Patient My Orders Orders - YOKO BOYCE MD Procedure Category Date Status Time * [employer]inder CONS 09/11/24 Transmitted Consult Ceftriaxone 1gm/50ml PHA 09/11/24 Logged D5w (Rocephin) 15:45 Date of Service: Sep 11, 2024 Billing Provider: YOKO BOYCE MD Common Visit Codes: [id number] INP/OBS CARE(MOD) YOKO BOYCE MD Sep 11, 2024 15:49
[2024-09-11] MEDS: cefTRIAXone 1GM/50ML D5W 50 ML IV SCH (16:29)
--- NOTE | 2024-09-11 18:21 | DVHINCON2 ---
Date of service: Sep 11, [address] Reed Reason for Consultation COPD, PNA History of Present Illness 79-year-old man history of asthma, COPD, depression who presented with generalized weakness. He had shortness of breath. He had anorexia. He was generalized weakness. He had a trip and fall hitting his head on the floor with sustained abrasion on his forehead. In the ED was found to have leukocytosis. His chest CT demonstrated thyromegaly with extensive centrilobular and paraseptal emphysema. There was fibro atelectatic opacities in the right middle lobes, lingula and bilateral lower lobes. He received antibiotics for suspected pneumonia. Pulmonary consultation is called due to pneumonia. Review of systems: 14 point review of systems is negative unless otherwise note d above. Past medical history: Asthma, COPD, depression Past surgical history: Tonsillectomy Medications: Reviewed Allergies: No known drug allergies. Family history: No family history of premature CAD. No family history of lung disease Social history: Active smoker. Smokes less than one pack per day. Social alcohol use. No illicit drug use. Lives at home. Family History: Cancer G8 MOTHER (LIVER) Family history: Cardiovascular disease G8 FATHER Family history: Diabetes mellitus G8 BROTHER Stroke G8 FATHER Allergies: Coded Allergies: NO KNOWN ALLERGIES (Unverified , 10/10/14) Home Meds Reported Medications Mometasone Furoate (MOMETASONE FUROATE) Pow, 1 XX BID, POW 10/11/14 Loratadine (Loratadine) 10 Mg Tab, 10 MG PO DAILY, TAB 10/11/14 Formoterol Fumarate (Formoterol Fumarate) Fumarate Pow, 12 MCG INH BID, POW 10/11/14 Flunisolide (Nasal) (Flunisolide) 0.025 % Spr, 2 SPRAY NA BID, #25 ML 3 Refills 10/11/14 Cyanocobalamin (B-12) 1,000 Mcg Cap, 1000 MCG PO DAILY, CAP 10/11/14 Cholecalciferol (D3) 400 Unit Cap, 400 UNIT PO DAILY, CAP 10/11/14 Bupropion Hcl (Bupropion Hcl Er) 150 Mg Tab, 1 TAB PO BID, #60 TAB 5 Refills 10/11/14 Bupropion Hcl (Budeprion Sr) 150 Mg Tab, 150 MG PO DAILY, #3 TAB 10/11/14 Albuterol Sulfate (Albuterol Sulfate) 0.083 % Neb, 1 VIAL NEB Q4HPRN, #50 VIAL 10/11/14 Albuterol Sulfate (VENTOLIN MDI) 90 Mcg Ih, 90 MCG IN QID 10/11/14 Tiotropium [place] Monohydrate (Spiriva Handihaler) Handihlr Cap, 1 CAP INH QID, #30 CAP 3 Refills 10/11/14 Current Medications Current Medications Medications (Trade) Dose Ordered Sig/Cathy Route PRN Reason Start Time Stop Time Status Last Admin Azithromycin 250 ml @ 125 mls/hr DAILY@2200 IV 09/10/24 22:00 09/10/24 21:04 Ceftriaxone Sodium 50 ml @ 100 mls/hr DAILY@09 IV 09/11/24 15:45 09/11/24 16:29 Vital Signs Vital Signs Date Time Temp Pulse Resp B/P (MAP) Pulse Ox O2 Delivery O2 Flow Rate FiO2 09/11/24 17:00 97.8 82 20 143/62 (89) 95 97.8 09/11/24 14:43 Nasal Cannula* 2 28 Physical Exam Gen.: Patient lying in bed in no apparent distress. On supplemental oxygen. Head: Normocephalic, atraumatic Eyes: EOMI/PERRLA. Ears: Normal hearing. Normal anatomy. Neck/trachea: Trachea midline, supple. Nose: Normal external anatomy. Mouth: Moist mucous membranes. Chest: Fair air entry bilaterally. No wheezing or rhonchi. Cardio vascular: Positive S1, positive S2. Regular rate and rhythm. Abdomen: Positive bowel sounds in all 4 quadrants. Soft, non-tender, non- distended. : Deferred. Rectal: Deferred Skin: Warm, dry. Extremities: 2+ radial pulses bilaterally. No lower extremity edema. Neuro: Awake, alert, oriented x3. No gross motor or sensory deficits. Cranial nerves II through XII intact. Gait not assessed. Labs/Diagnostic Data Labs Test 09/11/24 09:49 09/11/24 03:45 09/10/24 06:52 09/10/24 04:47 Range/Units Vancomycin Level Trough 17.3 H 5-10 ug/mL White Blood Count 30.4 *H 4.4-10.8 10^3/uL Red Blood Count 4.21 L 4.5-5.90 10^6/uL Hemoglobin 12.8 L 13.5-17.5 g/dL Hematocrit 37.8 L 41.0-53.0 % Mean Corpuscular Volume 89.7 80.0-100.0 fL Mean Corpuscular Hemoglobin 30.4 28.0-32.0 pg Mean Corpuscular Hemoglobin Concent 33.8 32.0-36.0 g/dL Red Cell Distribution Width 13.6 11.8-14.3 % Platelet Count 506 H 140-450 10^3/uL Mean Platelet Volume 6.7 L 6.9-10.8 fL Neutrophils (%) (Auto) 37.0-80.0 % Lymphocytes (%) (Auto) 10.0-50.0 % Monocytes (%) (Auto) 0.0-12.0 % Basophils (%) (Auto) 0.0-2.0 % Neutrophils # (Auto) 1.6-8.6 10 ^3/uL Lymphocytes # (Auto) 0.4-5.4 10 ^3/uL Monocytes # (Auto) 0-1.3 10 ^3/uL Differential Total Cells Counted 100.0 100 Neutrophils % (Manual) 89 H 37.0-80.0 Band Neutrophils % (Manual) 3 Lymphocytes % (Manual) 2 L 10.0-50.0 Monocytes % (Manual) 6 0-12 Eosinophils % (Manual) 0 0-7 Basophils % (Manual) 0 0.0-2.0 Metamyelocytes % (manual) 0 Myelocytes % (Manual) 0 Promyelocytes % (Manual) 0 Blast Cells % (Manual) 0 Reactive Lymphocytes 0 Platelet Estimate Increa Clumped Platelets Few Large Platelets Few Giant Platelets Few Sodium Level 123 L 136-145 mmol/L Potassium Level 4.0 3.5-5.1 mmol/L Chloride Level 91 L 98-107 mmol/L Carbon Dioxide Level 27 20-31 mmol/L Anion Gap 5 5-15 Blood Urea Nitrogen 18 9-23 mg/dL Creatinine 0.50 L 0.700-1.30 mg/dL Glomerular Filtration Rate Calc 104 >90 mL/min BUN/Creatinine Ratio 36.0 H 10.0-20.0 Serum Glucose 91 74-106 mg/dL Calcium Level 9.1 8.7-10.4 mg/dL Total Bilirubin 0.9 0.2-1.0 mg/dL Aspartate Amino Transferase (AST) 30 13-40 U/L Alanine Aminotransferase (ALT) 31 7-40 U/L Alkaline Phosphatase 125 H 46-116 U/L Total Protein 6.0 5.7-8.2 g/dL Albumin 3.1 L 3.2-4.8 g/dL Eosinophils (%) (Auto) 0.1 0.0-7.0 % Eosinophils # (Auto) 0 0-0.8 10 ^3/uL Basophils # (Auto) 0.2 0-0.2 10 ^3/uL Nucleated Red Blood Cells 0.0 % Urine Color Yellow Yellow Urine Clarity Clear Clear Urine pH 6.0 5.0-9.0 Urine Specific [place] 1.031 1.001-1.035 Urine Protein 1+ H Negative Urine Ketones Trace Negative Urine Blood Negative Negative /uL Urine Nitrite Negative Negative Urine Bilirubin Negative Negative Urine Urobilinogen 2 H Negative mg/dL Urine Leukocyte Esterase Negative Negative /uL Urine RBC 3 0 - 3 /hpf Urine WBC 3 0 - 3 /hpf Urine Squamous Epithelial Cells None seen <5 /hpf Urine Bacteria None seen None Seen /hpf Urine Mucus Few None Seen Urine Glucose Normal Normal mg/dL Test 09/10/24 03:10 09/09/24 23:55 Range/Units Lactic Acid Level 1.5 0.4-2.0 mmol/L Troponin I High Sensitivity 5 </=54 ng/L B-Type Natriuretic Peptide 121.45 0-100 pg/mL Microbiology Date/Time Source Procedure Growth Status 09/10/24 01:18 Blood Blood Culture - Preliminary NO GROWTH AFTER 24 HOURS OF INCUBATION. Resulted Assessment Impression: Acute hypoxic respiratory failure Pneumonia COPD Emphysema , paraseptal and centrilobular Fibroid atelectatic opacities in the right middle lobe, lingula and bilateral lower lobes. Calcified pleural plaques in the right upper lobe and posterior aspects of the lower lobes bilaterally Pleural effusions, Atelectasis Hyponatremia Plan: Supplemental oxygen Keep O2 saturation above 92% CT chest report and images reviewed. Emphysematous changes. Fibro atelectatic opacity in the right middle lobe, lingula and bilateral lower lobes. Calcified plaques in the right upper and bilateral lower lobes and posteriorly. Minimal pleural effusions and atelectasis. Continue antibiotics Monitor WBC count. Trending down. Continue bronchodilators as needed. Pain control. Avoid over-sedation. Incentive spirometry. And IV fluids at 60 mL an hour. DVT prophylaxis Prognosis: Guarded given multiple comorbidities. Rest of plan per hospitalist and other consultants. Thank you Dr. Reed for allowing me to participate in this patient's care. Further recommendations will depend on patient's clinical course. Please do not hesitate to contact me if you have any questions or concerns. This medical document was created using an electronic medical record system with [employer] dictation system. Although this document has been carefully reviewed, there may still be some phonetic and typographical errors. These areas are purely typographical due to imperfections of the software programs, and do not reflect any compromise in the patient's medical care. Plan discussed with: Patient, Other (RN, MD) TORITO URBAN MD Sep 11, 2024 18:21
--- NOTE | 2024-09-11 19:08 | DVHINCON2 ---
Date of service: Sep 11, 2024 Family History: Cancer G8 MOTHER (LIVER) Family history: Cardiovascular disease G8 FATHER Family history: Diabetes mellitus G8 BROTHER Stroke G8 FATHER Allergies: Coded Allergies: NO KNOWN ALLERGIES (Unverified , 10/10/14) Home Meds Reported Medications Mometasone Furoate (MOMETASONE FUROATE) Pow, 1 XX BID, POW 10/11/14 Loratadine (Loratadine) 10 Mg Tab, 10 MG PO DAILY, TAB 10/11/14 Formoterol Fumarate (Formoterol Fumarate) Fumarate Pow, 12 MCG INH BID, POW 10/11/14 Flunisolide (Nasal) (Flunisolide) 0.025 % Spr, 2 SPRAY NA BID, #25 ML 3 Refills 10/11/14 Cyanocobalamin (B-12) 1,000 Mcg Cap, 1000 MCG PO DAILY, CAP 10/11/14 Cholecalciferol (D3) 400 Unit Cap, 400 UNIT PO DAILY, CAP 10/11/14 Bupropion Hcl (Bupropion Hcl Er) 150 Mg Tab, 1 TAB PO BID, #60 TAB 5 Refills 10/11/14 Bupropion Hcl (Budeprion Sr) 150 Mg Tab, 150 MG PO DAILY, #3 TAB 10/11/14 Albuterol Sulfate (Albuterol Sulfate) 0.083 % Neb, 1 VIAL NEB Q4HPRN, #50 VIAL 10/11/14 Albuterol Sulfate (VENTOLIN MDI) 90 Mcg Ih, 90 MCG IN QID 10/11/14 Tiotropium [place] Monohydrate (Spiriva Handihaler) Handihlr Cap, 1 CAP INH QID, #30 CAP 3 Refills 10/11/14 Current Medications Current Medications Medications (Trade) Dose Ordered Sig/Cathy Route PRN Reason Start Time Stop Time Status Last Admin Azithromycin 250 ml @ 125 mls/hr DAILY@2200 IV 09/10/24 22:00 09/10/24 21:04 Ceftriaxone Sodium 50 ml @ 100 mls/hr DAILY@09 IV 09/11/24 15:45 09/11/24 16:29 Vital Signs Vital Signs Date Time Temp Pulse Resp B/P (MAP) Pulse Ox O2 Delivery O2 Flow Rate FiO2 09/11/24 18:57 98 Nasal Cannula* 2 28 09/11/24 17:00 97.8 82 20 143/62 (89) 97.8 Labs/Diagnostic Data Labs Test 09/11/24 09:49 09/11/24 03:45 09/10/24 06:52 09/10/24 04:47 Range/Units Vancomycin Level Trough 17.3 H 5-10 ug/mL White Blood Count 30.4 *H 4.4-10.8 10^3/uL Red Blood Count 4.21 L 4.5-5.90 10^6/uL Hemoglobin 12.8 L 13.5-17.5 g/dL Hematocrit 37.8 L 41.0-53.0 % Mean Corpuscular Volume 89.7 80.0-100.0 fL Mean Corpuscular Hemoglobin 30.4 28.0-32.0 pg Mean Corpuscular Hemoglobin Concent 33.8 32.0-36.0 g/dL Red Cell Distribution Width 13.6 11.8-14.3 % Platelet Count 506 H 140-450 10^3/uL Mean Platelet Volume 6.7 L 6.9-10.8 fL Neutrophils (%) (Auto) 37.0-80.0 % Lymphocytes (%) (Auto) 10.0-50.0 % Monocytes (%) (Auto) 0.0-12.0 % Basophils (%) (Auto) 0.0-2.0 % Neutrophils # (Auto) 1.6-8.6 10 ^3/uL Lymphocytes # (Auto) 0.4-5.4 10 ^3/uL Monocytes # (Auto) 0-1.3 10 ^3/uL Differential Total Cells Counted 100.0 100 Neutrophils % (Manual) 89 H 37.0-80.0 Band Neutrophils % (Manual) 3 Lymphocytes % (Manual) 2 L 10.0-50.0 Monocytes % (Manual) 6 0-12 Eosinophils % (Manual) 0 0-7 Basophils % (Manual) 0 0.0-2.0 Metamyelocytes % (manual) 0 Myelocytes % (Manual) 0 Promyelocytes % (Manual) 0 Blast Cells % (Manual) 0 Reactive Lymphocytes 0 Platelet Estimate Increa Clumped Platelets Few Large Platelets Few Giant Platelets Few Sodium Level 123 L 136-145 mmol/L Potassium Level 4.0 3.5-5.1 mmol/L Chloride Level 91 L 98-107 mmol/L Carbon Dioxide Level 27 20-31 mmol/L Anion Gap 5 5-15 Blood Urea Nitrogen 18 9-23 mg/dL Creatinine 0.50 L 0.700-1.30 mg/dL Glomerular Filtration Rate Calc 104 >90 mL/min BUN/Creatinine Ratio 36.0 H 10.0-20.0 Serum Glucose 91 74-106 mg/dL Calcium Level 9.1 8.7-10.4 mg/dL Total Bilirubin 0.9 0.2-1.0 mg/dL Aspartate Amino Transferase (AST) 30 13-40 U/L Alanine Aminotransferase (ALT) 31 7-40 U/L Alkaline Phosphatase 125 H 46-116 U/L Total Protein 6.0 5.7-8.2 g/dL Albumin 3.1 L 3.2-4.8 g/dL Eosinophils (%) (Auto) 0.1 0.0-7.0 % Eosinophils # (Auto) 0 0-0.8 10 ^3/uL Basophils # (Auto) 0.2 0-0.2 10 ^3/uL Nucleated Red Blood Cells 0.0 % Urine Color Yellow Yellow Urine Clarity Clear Clear Urine pH 6.0 5.0-9.0 Urine Specific [place] 1.031 1.001-1.035 Urine Protein 1+ H Negative Urine Ketones Trace Negative Urine Blood Negative Negative /uL Urine Nitrite Negative Negative Urine Bilirubin Negative Negative Urine Urobilinogen 2 H Negative mg/dL Urine Leukocyte Esterase Negative Negative /uL Urine RBC 3 0 - 3 /hpf Urine WBC 3 0 - 3 /hpf Urine Squamous Epithelial Cells None seen <5 /hpf Urine Bacteria None seen None Seen /hpf Urine Mucus Few None Seen Urine Glucose Normal Normal mg/dL Test 09/10/24 03:10 09/09/24 23:55 Range/Units Lactic Acid Level 1.5 0.4-2.0 mmol/L Troponin I High Sensitivity 5 </=54 ng/L B-Type Natriuretic Peptide 121.45 0-100 pg/mL Microbiology Date/Time Source Procedure Growth Status 09/10/24 01:18 Blood Blood Culture - Preliminary NO GROWTH AFTER 24 HOURS OF INCUBATION. Resulted Problems(with codes): (1) Generalized weakness (2) Multifocal pneumonia (3) Hyponatremia (4) Hypertension (5) Leukocytosis, unspecified (6) Status asthmaticus (7) Pneumonia (8) COPD (chronic obstructive pulmonary disease) (9) SHORTNESS OF BREATH (10) ASTHMA, CHRONIC OBSTRUCTIVE W ASTHMATICUS Plan/Recommendation ASSESSMENT AND PLAN: ID Problem List: - Generalized weakness - Fall with head injury - Multifocal pneumonia - Leukocytosis - COPD exacerbation - Hyponatremia - Stage 2 sacral ulcers - Tobacco use disorder Assessment This is a 79 y.o. male with a past medical history of asthma, COPD, and depression, who presents with generalized weakness and a fall resulting in a forehead abrasion. He has been experiencing loss of appetite, no bowel movements, and shortness of breath. Laboratory findings show leukocytosis with a WBC count of 35.6??10?/L, thrombocytosis with platelets at 539??10?/L, hyponatremia with sodium at 120?mmol/L, BUN of 22?mg/dL, creatinine of 0.6?mg/dL, glucose of 102?mg/dL, lactic acid of 1.5?mmol/L, and hemoglobin of 13.7?g/dL. Vital signs: BP 192/82?mmHg, HR 92?bpm, Temp 98.3?F, SpO? 93% on oxygen. CT head showed no acute abnormality. Chest CT revealed thyromegaly and extensive alveolar and parenchymal infiltrates in both lungs, seen in the right middle lobe, lingula, and both lower lobes. He was started empirically on vancomycin and ceftriaxone; azithromycin was later added. The patient has stage 2 sacral ulcers, non-purulent and non-eroded. Plan: - Continue vancomycin, ceftriaxone, and azithromycin for multifocal pneumonia and COPD exacerbation. - Obtain sputum and blood cultures. - Order procalcitonin level. - Recommend Doppler ultrasound of lower extremities to evaluate for DVT. - Monitor WBC count, electrolytes, lactic acid, and renal function. - Address hyponatremia with appropriate electrolyte management. - Implement wound care for stage 2 sacral ulcers. - Encourage bowel movements; consider bowel regimen if needed. - Monitor vital signs and oxygen saturation. - Provide smoking cessation counseling. Isolation Precautions: Standard Assessment and plan were discussed with the patient as written above. Plan is subject to change pending incorporation of new incoming information/diagnostics. Updates may be added as addendum at the bottom (OR TOP) of this note. Thank you for the consult. We will continue to follow. Please contact us for any questions or concerns. shelby coates md [facility] History: The patient's chart and medications were reviewed in detail, and the patient was seen and examined. History obtained from: Patient Sterling Hernandes is a 79 y.o. male with a past medical history of asthma, COPD, and depression, who presents after experiencing generalized weakness and a fall resulting in a forehead abrasion. He reports loss of appetite, no bowel movements, and shortness of breath. Review of Systems: A complete 10-system review of systems was completed and negative except as noted in the HPI or here. ROS: - CONSTITUTIONAL: Reports generalized weakness and loss of appetite. Denies weight loss, fever, and chills. - HEENT: Reports forehead abrasion from fall. Denies changes in vision and hearing. - RESPIRATORY: Reports shortness of breath. Denies cough. - CV: Denies chest pain and palpitations. - GI: Reports no bowel movements. Denies abdominal pain, nausea, vomiting, and diarrhea. - : Denies dysuria and urinary frequency. - MSK: Denies myalgia and joint pain. - SKIN: Reports forehead abrasion and stage 2 sacral ulcers. Denies rash and pruritus. - NEUROLOGICAL: Reports slight confusion after fall. Denies headache and syncope. - PSYCHIATRIC: Denies recent changes in mood. Denies anxiety and depression. Past Medical History: Diagnosis Date Asthma COPD Depression Past Surgical History: Tonsillectomy Home Medications: Not available. Allergies: No known drug allergies. Family History: No notable family history. Social History: Socioeconomic History Marital status: Not specified Number of children: Not specified Occupation: Not specified Tobacco Use Smoking status: Currently smokes less than one pack per day; previously smoked several packs per day for decades. Substance Use Alcohol use: Drinks occasionally. Drug use: Denies IV drug use. Living Situation Lives at home. Objective: Vital Signs on Arrival: Temp: 98.3?F?BP: 192/82?mmHg?Pulse: 92?bpm?Resp: 20?SpO?: 93% on oxygen Most Recent Vital Signs: Temp: 98.3?F?BP: 192/82?mmHg?Pulse: 101?bpm?Resp: 20?SpO?: 93% on room air Admission Weight: Weight: Not provided?BMI: Not available Physical Exam: General: Generally weak, malnourished, a little confused, pale skin. Neck: Supple. No masses. HEENT: Forehead abrasion present. PERRL. Normal lids and conjunctiva. Moist mucous membranes. Oropharynx without lesions, exudates, or excessive erythema. Normal external nose and ears. Heart: Tachycardic. Regular rhythm. No murmur. No lower extremity edema. Lungs: Normal respiratory effort. Clear to auscultation bilaterally. No wheezes. No crackles. Abdomen: Soft. Non-tender. Non-distended. No masses or abdominal hernia. Bowel sounds generally weak. Musculoskeletal: Generally weak but able to move all limbs. No regional weakness. No digital cyanosis. Normal strength and tone in all four limbs. Skin: Pale skin. Warm and dry. Forehead abrasion. Stage 2 sacral ulcers; non- purulent, non-eroded. Neuro: Alert but slightly confused. No facial droop or slurred speech. Extra- ocular movements intact. Sensation intact to soft touch in all four limbs. Psych: Appropriate mood. Full affect. Oriented to person, place, and situation. Lines: Active Lines Peripheral IV Line Diagnostic Studies: Available diagnostic studies were reviewed personally. Significant relevant results and findings are outlined below or addressed in the Assessment and Plan above. Pertinent Imaging: CT Head: - No acute abnormalities noted. Chest CT: - Thyromegaly. - Extensive alveolar and parenchymal infiltrates in both lungs, seen in the right middle lobe, lingula, and both lower lobes. Laboratory Data: Recent Results: - WBC: 35.6??10?/L (elevated) - Platelets: 539??10?/L (elevated) - Sodium: 120?mmol/L (low) - BUN: 22?mg/dL - Creatinine: 0.6?mg/dL - Glucose: 102?mg/dL - Lactic Acid: 1.5?mmol/L - Hemoglobin: 13.7?g/dL Plan discussed with: Patient SHELBY COATES MD Sep 11, 2024 19:08
[2024-09-12] VITALS (10 sets, daily range): BP systolic 104–153; BP diastolic 60–73; PULSE 82–92; RESP 16–20; TEMP 97.5–98.3; O2SAT 95–99
[2024-09-12 06:19] LABS: Hemoglobin 12.1 g/dL (13.5-17.5)
[2024-09-12 06:30] LABS: Hematocrit 36.2 % (41.0-53.0); Mean Corpuscular Hemoglobin 30.3 pg (28.0-32.0); Mean Corpuscular Hgb Conc. 33.3 g/dL (32.0-36.0); Platelet Count (auto) 442 10^3/uL (140-450); Red Blood Cells 3.98 10^6/uL (4.5-5.90); Red Cell Distribution Width 13.8 % (11.8-14.3)
[2024-09-12 06:36] LABS: White Blood Cell 33.1 10^3/uL (4.4-10.8)
[2024-09-12 06:37] LABS: Basophils % (manual) 0 (0.0-2.0); Blast Cells 0; Eosinophils % (manual) 0 (0-7); Metamyelocytes % 0; Monocytes % (manual) 0 (0-12); Myelocytes % 0; Promyelocytes % 0; Reactive Lymphocytes 0
[2024-09-12 07:47] LABS: Band Neutrophils % (manual) 46; Lymphocytes % (manual) 3 (10.0-50.0); Platelet Estimate Adequate
[2024-09-12 09:57] LABS: Base Excess -0.5 mmol/L (-2.0-3.0)
--- NOTE | 2024-09-12 10:13 | DVH ---
CLINICAL INFORMATION: 79 years old, Male; rule out pneumothorax. TECHNIQUE: Single AP portable chest radiograph was obtained. COMPARISON: XY CHEST PORTABLE on DOS: 09/10/24. Correlation also made to CT chest dated 09/10/2024. FINDINGS: Lungs: Pneumothorax visualized. Areas of lucency in the right upper lobe are unchanged and correlate with bullous disease seen on recent CT chest exam. Calcified pleural plaques again noted bilaterally , right greater than left. Mild blunting of the costophrenic sulci bilaterally consistent with small bilateral pleural effusions with overlying atelectasis. Cardiac: Heart size is within normal limits. Pulmonary vasculature: Unremarkable. Mediastinum/isiah: Moderate atherosclerotic calcification of the aortic arch. Bones: No acute osseous abnormality identified. Other: No other significant findings. IMPRESSION: 1. No pneumothorax visualized. Areas of lucency in the right upper lung correlate with bullous disea se when compared to recent CT chest exam and are stable compared to the prior radiographs. 2. Bilateral calcified pleural plaques, right greater than left. 3. Small bilateral pleural effusions with overlying atelectasis. Minimal change compared to the prior radiographs.
--- NOTE | 2024-09-12 13:16 | ECG ---
[facility] Test Date: 2024-09-09 Test Time: 23:40:40 Pat Name: BUSHRA GARCIA Department: ED Room: 0220T B Gender: M [employer]: : 1945 Requested By: DENNY MÁRQUEZ Order Number: [id number] Reading MD: Marciano Savage Measurements Intervals [place] Rate: 92 P: 101 IA: 164 QRS: 89 QRSD: 88 T: 63 QT: 363 QTc: 450 Interpretive Statements Sinus rhythm Borderline right axis deviation Electronically Signed On 09-22-2024 12:10:09 PST by Marciano Savage Please click the below link to view image of tracing.
[2024-09-12 13:46] LABS: Alanine Aminotransferase 40 U/L (7-40); Albumin 2.8 g/dL (3.2-4.8); Alkaline Phosphatase 139 U/L (46-116); Anion Gap 8 (5-15); Aspartate Aminotransferase 43 U/L (13-40); BUN/Creatinine Ratio 28.6 (10.0-20.0); Bilirubin, Total 0.8 mg/dL (0.2-1.0); Carbon Dioxide 25 mmol/L (20-31); Chloride 96 mmol/L (98-107); Cholesterol 80 mg/dL (< 200); Glucose 66 mg/dL (74-106); HDL Cholesterol 16 mg/dL (40-59); LDL Cholesterol 42 mg/dL (< 100); Potassium 4.1 mmol/L (3.5-5.1); Total Protein 5.9 g/dL (5.7-8.2); Triglycerides 70 mg/dL (< 150)
[2024-09-12 13:47] LABS: Blood Urea Nitrogen 30 mg/dL (9-23); Sodium 129 mmol/L (136-145)
--- NOTE | 2024-09-12 15:28 | DVHSR ---
APPROVED REPORT EXAM: Two-dimensional and M-mode echocardiogram with Doppler and color Doppler. Blood Pressure: 104/62 mmHg INDICATION Chest Pain Enlarged pulmonary trunk RISK FACTORS Height: 5'7", Weight: 153 DIMENSIONS LVDd3.2 (3.8-5.7cm)LA (2D)3.8 (1.9-4.0cm)Aortic Root3.7 (2.0-3.7cm) LVDs2.3 (2.5-4.0cm)LA (MM) (1.9-4.0cm)Aortic Cusp Exc1.3 (1.5-2.0cm) EF (%) 60.0 (55-70%)Rt. Atrium (1.9-4.0cm)Asc. Aorta cm IVSd1.4 (0.7-1.1cm)RV (D) (1.8-2.4cm) PWd1.2 (0.7-1.1cm) Mitral Valve MitralMitral Stenosis E wave0.58m/sMV Mean GR.mmHg A wave0.83m/sMV Peak GR.mmHg E/A ratio0.72D MVAcm2 DECEL [id number] 1/2 Timems Aortic Valve Aortic ValveAortic Stenosis V11.29m/Kvng Mean GR.10mmHg V22.15m/Kvng Peak GR.18mmHg LVOT Diameter2.1 (1.8-2.4cm)Doppler AVA2.08cm2 AI P 1/2 Tyum017.27ms Pulmonic Valve V21.50m/s Tricuspid Valve TR Velocity3.51m/s [id number] Conclusion Normal left ventricular size and dimension. Normal left ventricular systolic function estimated ejec tion fraction of 50%. There is a grade 1 diastolic dysfunction. Normal right ventricular size and dimension. Normal right ventricular systolic function. Moderate t o severely elevated right ventricular systolic pressure 57 mm of mercury Normal biatrial size and dimension. The aortic valve is moderately sclerotic there is [id number] aortic valve regurgitation. Normal mitral valve structure and function. Normal tricuspid valve structure and function. The pulmonary valve is grossly normal. No pericardial effusion.
--- NOTE | 2024-09-12 16:42 | DVHPN2 ---
Subjective Patient was multifocal pneumonia currently on p.o. antibiotics. Reviewed: Care Plan Changes from previous H/P or p: No Changes Eyes: No Pain, No Vision change, No Conjunctivae inflammation, No Eyelid inflammation, No Other, No Redness ENT: No Ear pain, No Ear discharge, No Nose pain, No Nose discharge, No Nose congestion, No Mouth pain, No Mouth swelling, No Throat pain, No Throat swelling, No Other Cardiovascular: No Chest Pain, No Palpitations, No Orthopnea, No Paroxysmal Noc. Dyspnea, No Edema, No Lt Headedness, No Other Respiratory: No Cough, No Dry; Shortness of breath, SOB with excertion; No Wheezing, No Hemoptysis, No Pleuritic Pain, No Sputum; Other (SOB at rest) Gastrointestinal: Nausea; No Vomiting, No Abdominal Pain, No Diarrhea; C onstipation; No Melena, No Hematochezia; Other (Poor appetite) Genitourinary: No Dysuria, No Frequency, No Incontinence, No Hematuria, No Retention, No Other Musculoskeletal: No other, No neck pain, No shoulder pain, No arm pain, No back pain, No hand pain, No leg pain, No foot pain Skin: No Rash, No Lesions, No Jaundice, No Bruising, No Other Objective Vitals Vital Signs Date Time Temp Pulse Resp B/P (MAP) Pulse Ox O2 Delivery O2 Flow Rate FiO2 09/12/24 12:00 97.5 92 18 136/61 (86) 96 97.5 09/12/24 10:00 Nasal Cannula 2.0 09/12/24 10:00 28 Intake/Output Intake and Output 09/12/24 07:00 Intake Total 1010 ml Output Total 600 ml Balance 410 ml Intake Oral 640 ml IV Total 370 ml Output Urine Total 600 ml Exam HEENT pupils are reactive Neck was supple CV system S2 regular rate and rhythm Respiratory vitals given his pes tendinitis lung bases GI positive bowel sound Extremity no pedal edema 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 Medications Current Medications Medications Dose Ordered Sig/Cathy Route Start Time Stop Time Status Last Admin Dose Admin Albuterol 2.5 mg Q4HPRN PRN NEB 09/10/24 06:30 09/12/24 07:13 2.5 MG Ipratropium [place] 0.5 mg Q4HPRN PRN NEB 09/10/24 06:30 09/12/24 07:13 0.5 MG Azithromycin 250 ml @ 125 mls/hr DAILY@2200 IV 09/10/24 22:00 09/11/24 21:57 125 MLS/HR Vancomycin HCl 0 ml @ 0 mls/hr UD IV 09/10/24 06:30 Aspirin 81 mg DAILY PO 09/10/24 10:00 09/12/24 09:45 81 MG Sodium Chloride 1,000 ml @ 60 mls/hr [id number] IV 09/10/24 06:30 09/11/24 16:30 60 MLS/HR Acetaminophen/ Hydrocodone Bitart 1 tab Q4HP PRN PO 09/10/24 06:30 09/12/24 14:33 1 TAB Ondansetron HCl 4 mg Q4HP PRN IV 09/10/24 06:30 Docusate Sodium 100 mg BIDPRN PRN PO 09/10/24 06:30 09/11/24 09:53 100 MG Acetaminophen 650 mg Q6HP PRN PO 09/10/24 06:30 Nitroglycerin 0.4 mg Q5MINP PRN SL 09/10/24 06:30 Morphine Sulfate 2 mg Q30M PRN IV 09/10/24 06:30 09/10/24 15:37 2 MG Hydralazine HCl 10 mg Q6HP PRN IV 09/10/24 07:15 09/11/24 05:31 10 MG Vancomycin HCl 200 ml @ 200 mls/hr Q10H IV 09/10/24 14:00 09/12/24 14:34 200 MLS/HR Ceftriaxone Sodium 50 ml @ 100 mls/hr DAILY@09 IV 09/11/24 15:45 09/12/24 09:38 100 MLS/HR Laboratory Results Laboratory Tests 09/12/24 05:10 Chemistry Test 09/12/24 05:10 Albumin 2.8 g/dL (3.2-4.8) L Calcium Level 9.0 mg/dL (8.7-10.4) Total Protein 5.9 g/dL (5.7-8.2) Lipid panel Test 09/12/24 05:10 Cholesterol Level 80 mg/dL (< 200) HDL Cholesterol 16 mg/dL (40-59) L Triglycerides Level 70 mg/dL (< 150) LFT Test 09/12/24 05:10 Alanine Aminotransferase (ALT) 40 U/L (7-40) Alkaline Phosphatase 139 U/L (46-116) H Aspartate Amino Transferase (AST) 43 U/L (13-40) H Total Bilirubin 0.8 mg/dL (0.2-1.0) Urinalysis Test 09/10/24 04:47 Urine Color Yellow (Yellow) Urine Clarity Clear (Clear) Urine pH 6.0 (5.0-9.0) Urine Specific [place] 1.031 (1.001-1.035) Urine Protein 1+ (Negative) H Urine Ketones Trace (Negative) Urine Blood Negative /uL (Negative) Urine Nitrite Negative (Negative) Urine Bilirubin Negative (Negative) Urine Urobilinogen 2 mg/dL (Negative) H Urine Leukocyte Esterase Negative /uL (Negative) Urine RBC 3 /hpf (0 - 3) Urine WBC 3 /hpf (0 - 3) Urine Squamous Epithelial Cells None seen /hpf (<5) Urine Bacteria None seen /hpf (None Seen) Urine Mucus Few (None Seen) Urine Glucose Normal mg/dL (Normal) Blood Gas Results Test 09/12/24 09:51 Arterial Blood pH 7.435 (7.350-7.450) FiO2 % 28.0 Microbiology Microbiology Date/Time Source Procedure Growth Status 09/10/24 01:18 Blood Blood Culture - Preliminary NO GROWTH AFTER 48 HOURS OF INCUBATION. Resulted Assessment/Plan Assessment/Plan Assessment/Plan: 79-year-old male with known history of COPD who initially presented to the hospital with generalized weakness loss of appetite decreased urine output found to have 1. Multifocal pneumonia 2. Acute hypoxic/COPD secondary to multifocal pneumonia 3. Hyponatremia 4. Leukocytosis likely reactive secondary to multifocal pneumonia but hematology: Disorder can not be excluded 5. Hypertension 6. Sacrococcygeal pressure ulcer -continue broad-spectrum IV antibiotics pulmonary consultation, Hematology consultation- -she was continued to be evaluation and treatment Wound consult for possibly stage II sacrococcygeal wound. Plan discussed with: Patient My Orders Orders - YOKO BOYCE MD Procedure Category Date Status Time Cleanse Wound With YOSELYN 09/12/24 In Process Wound Clean 11:48 * Dietary Consult CONS 09/12/24 Transmitted 13:55 Date of Service: Sep 12, 2024 Billing Provider: YOKO BOYCE MD Common Visit Codes: [id number] INP/OBS CARE(MOD), NOT BILLABLE YOKO BOYCE MD Sep 12, 2024 16:42
--- NOTE | 2024-09-12 18:46 | DVHPN2 ---
Progress Note - Dictate Date Seen: Sep 12, 2024 Medical Necessity Reason Pt with a Central, PICC or Fol: No Subjective Patient seen and examined at bedside. Remains on supplemental oxygen Overnight events reviewed. vital signs Vital Sign Date Time Temp Pulse Resp B/P (MAP) Pulse Ox O2 Delivery O2 Flow Rate FiO2 09/12/24 16:00 97.9 88 17 123/61 (81) 97 97.9 09/12/24 10:00 Nasal Cannula 2.0 09/12/24 10:00 28 Total Intake and Output 09/11/24 09/11/24 09/12/24 15:00 23:00 07:00 Intake Total 1010 ml Output Total 500 ml 100 ml Balance 510 ml -100 ml medications Current Medications Medications Dose Ordered Sig/Cathy Route Start Time Stop Time Status Last Admin Dose Admin Albuterol 2.5 mg Q4HPRN PRN NEB 09/10/24 06:30 09/12/24 07:13 2.5 MG Ipratropium [place] 0.5 mg Q4HPRN PRN NEB 09/10/24 06:30 09/12/24 07:13 0.5 MG Azithromycin 250 ml @ 125 mls/hr DAILY@2200 IV 09/10/24 22:00 09/11/24 21:57 125 MLS/HR Vancomycin HCl 0 ml @ 0 mls/hr UD IV 09/10/24 06:30 Aspirin 81 mg DAILY PO 09/10/24 10:00 09/12/24 09:45 81 MG Sodium Chloride 1,000 ml @ 60 mls/hr [id number] IV 09/10/24 06:30 09/11/24 16:30 60 MLS/HR Acetaminophen/ Hydrocodone Bitart 1 tab Q4HP PRN PO 09/10/24 06:30 09/12/24 14:33 1 TAB Ondansetron HCl 4 mg Q4HP PRN IV 09/10/24 06:30 Docusate Sodium 100 mg BIDPRN PRN PO 09/10/24 06:30 09/11/24 09:53 100 MG Acetaminophen 650 mg Q6HP PRN PO 09/10/24 06:30 Nitroglycerin 0.4 mg Q5MINP PRN SL 09/10/24 06:30 Morphine Sulfate 2 mg Q30M PRN IV 09/10/24 06:30 09/10/24 15:37 2 MG Hydralazine HCl 10 mg Q6HP PRN IV 09/10/24 07:15 09/11/24 05:31 10 MG Vancomycin HCl 200 ml @ 200 mls/hr Q10H IV 09/10/24 14:00 09/12/24 14:34 200 MLS/HR Ceftriaxone Sodium 50 ml @ 100 mls/hr DAILY@09 IV 09/11/24 15:45 09/12/24 09:38 100 MLS/HR objective Gen.: Patient lying in bed in no apparent distress. On supplemental oxygen. Head: Normocephalic, atraumatic. Eyes: EOMI/PERRLA. Ears: Normal hearing. Normal anatomy. Neck/trachea: Trachea midline, supple. Nose: Normal external anatomy. Mouth: Moist mucous membranes. Chest: Decreased air entry bilaterally. No wheezing or rhonchi. Cardiovascular: Positive S1, positive S2. Regular rate and rhythm. Abdomen: Positive bowel sounds in all 4 quadrants. Soft, non-tender, non- distended. : Deferred. Rectal: Deferred. Skin: Warm, dry. Intact. Extremities: 2+ radial pulses bilaterally. No lower extremity edema. Neuro: Awake, alert, oriented x3. No gross motor or sensory deficits. Cranial nerves II through XII intact. Gait not assessed. laboratory and microbiology Laboratory Tests 09/12/24 05:10 Test 09/12/24 05:10 Range/Units Serum Glucose 66 L 74-106 mg/dL Assessment/Plan Impression: Acute hypoxic respiratory failure Pneumonia COPD Emphysema , paraseptal and centrilobular Fibroid atelectatic opacities in the right middle lobe, lingula and bilateral lower lobes. Calcified pleural plaques in the right upper lobe and posterior aspects of the lower lobes bilaterally Pleural effusions, Atelectasis Hyponatremia Events: Remains on supplemental O2 at 2 LPM NC Taper O2 as tolerated Continue bronchodilators. Continue antibiotics - ceftriaxone and vancomycin Incentive spirometry Nonproductive cough Bedias for pain. Obtain STAT troponin WBC 33.1 K. Blood cultures negative after 48 hours. ECG reviewed. Hyponatremia - on IV fluids at 60 ml/hr. Monitor sodium, 123. STAT ABG reviewed, compensated. STAT CXR - interval worsening in right lung opacities 2/2 volume overload. Obtain Echo to assess LVEF and RVSP. CT chest notable for enlarged pulmonary trunk. Obtain serum osms, urine osms, urine sodium, urine prot-creatinine ratio, urine creatinine Check serum triglycerides, glucose. Labs and imaging reviewed. Rest of plan as noted below. Plan: Supplemental oxygen Keep O2 saturation above 92% CT chest report and images reviewed. Emphysematous changes. Fibro atelectatic opacity in the right middle lobe, lingula and bilateral lower lobes. Calcified plaques in the right upper and bilateral lower lobes and posteriorly. Minimal pleural effusions and atelectasis. Continue antibiotics Monitor WBC count. Trending down. Continue bronchodilators as needed. Pain control. Avoid over-sedation. Incentive spirometry. IV fluids at 60 mL an hour. DVT prophylaxis Prognosis: Guarded given multiple comorbidities. Condition: Critical Rest of plan per hospitalist and other consultants. A total of 35 minutes of critical care time was spent reviewing the patient record, examining the patient, making a diagnostic and therapeutic plan, discussing this plan with the medical personnel, following up on diagnostic studies and following the patient for clinical stability excluding any and all procedures. At least 50% of this time was spent in direct, [id number] contact. Thank you Dr. Reed for allowing me to participate in this patient's care. Further recommendations will depend on patient's clinical course. Please do not hesitate to contact me if you have any questions or concerns. This medical document was created using an electronic medical record system with [employer] dictation system. Although this document has been carefully reviewed, there may still be some phonetic and typographical errors. These areas are purely typographical due to imperfections of the software programs, and do not reflect any compromise in the patient's medical care. Plan discussed with: Other (JEANNINE Rosas) Critical Care Time(min): 35 TORITO URBAN MD Sep 12, 2024 18:46
[2024-09-13] VITALS (14 sets, daily range): BP systolic 116–148; BP diastolic 55–76; PULSE 81–120; RESP 16–20; TEMP 97.4–98.4; O2SAT 91–100
--- NOTE | 2024-09-13 09:39 | DVHPN2 ---
Consult Progress Note Date Seen: Sep 12, 2024 Subjective Patient reports: Feels better (hypoxia improved on 2lNC) Objective vital signs Vital Sign Date Time Temp Pulse Resp B/P (MAP) Pulse Ox O2 Delivery O2 Flow Rate FiO2 09/13/24 09:17 85 20 100 09/13/24 09:08 Nasal Cannula* 2 28 09/13/24 09:06 139/66 09/13/24 05:00 97.9 97.9 Total Intake and Output 09/12/24 09/12/24 09/13/24 15:00 23:00 07:00 Intake Total 1310 ml 1570 ml Output Total 400 ml 900 ml Balance 910 ml 670 ml medications Current Medications Medications Dose Ordered Sig/Cathy Route Start Time Stop Time Status Last Admin Dose Admin Albuterol 2.5 mg Q4HPRN PRN NEB 09/10/24 06:30 09/13/24 09:08 2.5 MG Ipratropium [place] 0.5 mg Q4HPRN PRN NEB 09/10/24 06:30 09/13/24 09:08 0.5 MG Azithromycin 250 ml @ 125 mls/hr DAILY@2200 IV 09/10/24 22:00 09/12/24 22:55 125 MLS/HR Vancomycin HCl 0 ml @ 0 mls/hr UD IV 09/10/24 06:30 Aspirin 81 mg DAILY PO 09/10/24 10:00 09/13/24 08:49 81 MG Sodium Chloride 1,000 ml @ 60 mls/hr [id number] IV 09/10/24 06:30 09/13/24 01:10 60 MLS/HR Acetaminophen/ Hydrocodone Bitart 1 tab Q4HP PRN PO 09/10/24 06:30 09/13/24 08:49 1 TAB Ondansetron HCl 4 mg Q4HP PRN IV 09/10/24 06:30 Docusate Sodium 100 mg BIDPRN PRN PO 09/10/24 06:30 09/11/24 09:53 100 MG Acetaminophen 650 mg Q6HP PRN PO 09/10/24 06:30 Nitroglycerin 0.4 mg Q5MINP PRN SL 09/10/24 06:30 Morphine Sulfate 2 mg Q30M PRN IV 09/10/24 06:30 09/10/24 15:37 2 MG Hydralazine HCl 10 mg Q6HP PRN IV 09/10/24 07:15 09/11/24 05:31 10 MG Ceftriaxone Sodium 50 ml @ 100 mls/hr DAILY@09 IV 09/11/24 15:45 09/13/24 08:50 100 MLS/HR Physical Exam: General: Generally weak, malnourished, a little confused, pale skin. Neck: Supple. No masses. HEENT: Forehead abrasion present. PERRL. Normal lids and conjunctiva. Moist mucous membranes. Oropharynx without lesions, exudates, or excessive erythema. Normal external nose and ears. Heart: Tachycardic. Regular rhythm. No murmur. No lower extremity edema. Lungs: Normal respiratory effort. Clear to auscultation bilaterally. No wheezes. No crackles. Abdomen: Soft. Non-tender. Non-distended. No masses or abdominal hernia. Bowel sounds generally weak. Musculoskeletal: Generally weak but able to move all limbs. No regional weakness. No digital cyanosis. Normal strength and tone in all four limbs. Skin: Pale skin. Warm and dry. Forehead abrasion. Stage 2 sacral ulcers; non-purulent, non-eroded. Neuro: Alert but slightly confused. No facial droop or slurred speech. Extra-ocular movements intact. Sensation intact to soft touch in all four limbs. Psych: Appropriate mood. Full affect. Oriented to person, place, and situation. laboratory and microbiology Laboratory Tests 09/12/24 05:10 Test 09/12/24 05:10 Range/Units Serum Glucose 66 L 74-106 mg/dL Problem List/Assessment/Plan Problems(with codes): (1) Generalized weakness (2) Multifocal pneumonia (3) Hyponatremia (4) Hypertension (5) Leukocytosis, unspecified (6) Status asthmaticus (7) Pneumonia (8) COPD (chronic obstructive pulmonary disease) (9) SHORTNESS OF BREATH (10) ASTHMA, CHRONIC OBSTRUCTIVE W ASTHMATICUS Problem List/Assessment/Plan ID Problem List: -- Generalized weakness -- Fall with head injury -- Multifocal pneumonia -- Leukocytosis -- COPD exacerbation -- Hyponatremia -- Stage 2 sacral ulcers -- Tobacco use disorder Assessment This is a 79 y.o. male with a past medical history of asthma, COPD, and depression, who presents with generalized weakness and a fall resulting in a forehead abrasion. He has been experiencing loss of appetite, no bowel movements, and shortness of breath. Laboratory findings show leukocytosis with a WBC count of 35.6??10?/L, thrombocytosis with platelets at 539??10?/L, hyponatremia with sodium at 120?mmol/L, BUN of 22?mg/dL, creatinine of 0.6?mg/dL, glucose of 102?mg/dL, lactic acid of 1.5?mmol/L, and hemoglobin of 13.7?g/dL. CT head showed no acute abnormality. Chest CT revealed thyromegaly and extensive alveolar and parenchymal infiltrates in both lungs, seen in the right middle lobe, lingula, and both lower lobes. He was started empirically on vancomycin and ceftriaxone; azithromycin was later added. The patient has stage 2 sacral ulcers, non-purulent and non-eroded. Plan: -- Continue vancomycin, ceftriaxone, and azithromycin for multifocal pneumonia and COPD exacerbation. -- Obtain sputum and blood cultures. -- Order procalcitonin level. -- Recommend Doppler ultrasound of lower extremities to evaluate for DVT. -- Monitor WBC count, electrolytes, lactic acid, and renal function. -- Address hyponatremia with appropriate electrolyte management. -- Implement wound care for stage 2 sacral ulcers. -- Encourage bowel movements; consider bowel regimen if needed. -- Monitor vital signs and oxygen saturation. -- Provide smoking cessation counseling. Isolation Precautions: Standard Plan discussed with: Patient SHELBY OQUENDO MD Sep 13, 2024 09:39
--- NOTE | 2024-09-13 10:28 | DVH ---
BILATERAL LOWER EXTREMITY VENOUS DOPPLER CLINICAL HISTORY: rule vte Technique: Duplex Doppler evaluation of the deep venous systems of both lower extremities from the co mmon femoral veins to the popliteal veins including color Doppler and spectral/pulsed waveform analys is was performed. COMPARISON: None FINDINGS: There is nonocclusive thrombus seen in the proximal left superficial femoral vein. The right common femoral, superficial femoral, popliteal, posterior tibial and peroneal veins appear patent with normal augmentation, phasicity, compressibility and color-flow. IMPRESSION: 1. Nonocclusive thrombus seen in the proximal left superficial femoral vein. 2. There is no sonographic evidence for DVT in the right lower extremity. HS:Y
--- NOTE | 2024-09-13 13:28 | DVH ---
CTA Chest with intravenous contrast INDICATION: R/O PE COMPARISON: CT CHEST WITH CONTRAST on DOS: 09/10/24 TECHNIQUE: Multidetector spiral CTA of the chest was performed of the chest with intravenous contrast . PULMONARY ANGIOGRAPHY PROTOCOL was utilized using a bolus-tracking technique centered on the main p ulmonary artery. Axial, coronal and sagittal multiplanar and MIP reformats were performed. CONTRAST: Type of contrast: Omni 350 Contrast injected: 100 ml Radiation dose : Chest: CTDI volume is 24 mGy. Dose-length product is 460.3 mGy*cm The dose indicators for CT are the volume computed Tomography (CT) dose Index (CTDIvol) and the dose Length product (DLP), and are measured in units of mGy and mGy-cm, respectively. These indicators are not patient dose, but values generated from the CT scanner acquisition factors. The report includes radiation exposure data for exposures received during this examination. Findings: Pulmonary artery: No pulmonary embolism Lower neck: Normal thyroid. Lungs: Emphysematous changes in both lungs. Atelectasis and consolidation in the lung bases. Heart/Vascular Structures: Normal heart size. No pericardial effusion. Aberrant right subclavian kahlil ry noted. Lymph Nodes: Diffuse soft tissue abnormality in the posterior mediastinum, largest component measures up to 37 by 63 mm containing small air bubbles. Pleura: Small bilateral pleural effusions. Calcified pleural plaques bilaterally. Musculoskeletal: No acute osseous abnormality. Soft tissues: Normal. Upper abdomen: Nonspecific gaseous distention of bowel IMPRESSION: 1. No pulmonary embolism. 2. Diffuse abnormal soft tissue density in the posterior mediastinum extending from the upper thorax to the diaphragmatic hiatus with small air bubbles. Overall this appears increased size and extent co mpared to prior exam. This could represent necrotic adenopathy. An abscess is not excluded. Esophagea l injury or rupture is not excluded. CT-guided biopsy of the largest component on the left at the niles phragmatic hiatus is recommended. 3. Smoking-related lung disease. Patchy bibasilar atelectasis and consolidation. Small bilateral ple ural effusions. Evidence of prior asbestos exposure. Aberrant right subclavian artery. 4. Nonspecific gaseous distention of bowel. Consider further evaluation with CT of the abdomen and p estuardo. HS:Y
--- NOTE | 2024-09-13 19:10 | DVHPN2 ---
Subjective Patient was multifocal pneumonia currently on p.o. antibiotics. Reviewed: Care Plan Changes from previous H/P or p: No Changes Eyes: No Pain, No Vision change, No Conjunctivae inflammation, No Eyelid inflammation, No Other, No Redness ENT: No Ear pain, No Ear discharge, No Nose pain, No Nose discharge, No Nose congestion, No Mouth pain, No Mouth swelling, No Throat pain, No Throat swelling, No Other Cardiovascular: No Chest Pain, No Palpitations, No Orthopnea, No Paroxysmal Noc. Dyspnea, No Edema, No Lt Headedness, No Other Respiratory: No Cough, No Dry; Shortness of breath, SOB with excertion; No Wheezing, No Hemoptysis, No Pleuritic Pain, No Sputum; Other (SOB at rest) Gastrointestinal: Nausea; No Vomiting, No Abdominal Pain, No Diarrhea; C onstipation; No Melena, No Hematochezia; Other (Poor appetite) Genitourinary: No Dysuria, No Frequency, No Incontinence, No Hematuria, No Retention, No Other Musculoskeletal: No other, No neck pain, No shoulder pain, No arm pain, No back pain, No hand pain, No leg pain, No foot pain Skin: No Rash, No Lesions, No Jaundice, No Bruising, No Other Objective Vitals Vital Signs Date Time Temp Pulse Resp B/P (MAP) Pulse Ox O2 Delivery O2 Flow Rate FiO2 09/13/24 16:45 98.3 90 16 148/76 (100) 91 98.3 09/13/24 10:02 Nasal Cannula 2.0 09/13/24 10:02 28 Intake/Output Intake and Output 09/13/24 07:00 Intake Total 2880 ml Output Total 1300 ml Balance 1580 ml Intake Oral 1300 ml IV Total 1580 ml Output Urine Total 1300 ml # Voids 2 # Bowel Movements 1 Exam HEENT pupils are reactive Neck was supple CV system S2 regular rate and rhythm Respiratory vitals given his pes tendinitis lung bases GI positive bowel sound Extremity no pedal edema [employer]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 Medications Current Medications Medications Dose Ordered Sig/Cathy Route Start Time Stop Time Status Last Admin Dose Admin Albuterol 2.5 mg Q4HPRN PRN NEB 09/10/24 06:30 09/13/24 09:08 2.5 MG Ipratropium [place] 0.5 mg Q4HPRN PRN NEB 09/10/24 06:30 09/13/24 09:08 0.5 MG Azithromycin 250 ml @ 125 mls/hr DAILY@2200 IV 09/10/24 22:00 09/12/24 22:55 125 MLS/HR Vancomycin HCl 0 ml @ 0 mls/hr UD IV 09/10/24 06:30 Aspirin 81 mg DAILY PO 09/10/24 10:00 09/13/24 08:49 81 MG Sodium Chloride 1,000 ml @ 60 mls/hr [id number] IV 09/10/24 06:30 09/13/24 01:10 60 MLS/HR Acetaminophen/ Hydrocodone Bitart 1 tab Q4HP PRN PO 09/10/24 06:30 09/13/24 08:49 1 TAB Ondansetron HCl 4 mg Q4HP PRN IV 09/10/24 06:30 Docusate Sodium 100 mg BIDPRN PRN PO 09/10/24 06:30 09/11/24 09:53 100 MG Acetaminophen 650 mg Q6HP PRN PO 09/10/24 06:30 Nitroglycerin 0.4 mg Q5MINP PRN SL 09/10/24 06:30 Morphine Sulfate 2 mg Q30M PRN IV 09/10/24 06:30 09/10/24 15:37 2 MG Hydralazine HCl 10 mg Q6HP PRN IV 09/10/24 07:15 09/11/24 05:31 10 MG Ceftriaxone Sodium 50 ml @ 100 mls/hr DAILY@09 IV 09/11/24 15:45 09/13/24 08:50 100 MLS/HR Enoxaparin Sodium 70 mg Q12HR SC 09/13/24 22:00 UNV Enoxaparin Sodium 70 mg Q12HR SC 09/13/24 22:00 Laboratory Results Laboratory Tests 09/12/24 05:10 Urinalysis Test 09/10/24 04:47 Urine Color Yellow (Yellow) Urine Clarity Clear (Clear) Urine pH 6.0 (5.0-9.0) Urine Specific [employer] 1.031 (1.001-1.035) Urine Protein 1+ (Negative) H Urine Ketones Trace (Negative) Urine Blood Negative /uL (Negative) Urine Nitrite Negative (Negative) Urine Bilirubin Negative (Negative) Urine Urobilinogen 2 mg/dL (Negative) H Urine Leukocyte Esterase Negative /uL (Negative) Urine RBC 3 /hpf (0 - 3) Urine WBC 3 /hpf (0 - 3) Urine Squamous Epithelial Cells None seen /hpf (<5) Urine Bacteria None seen /hpf (None Seen) Urine Mucus Few (None Seen) Urine Glucose Normal mg/dL (Normal) Microbiology Microbiology Date/Time Source Procedure Growth Status 09/10/24 01:18 Blood Blood Culture - Preliminary NO GROWTH AFTER 72 HOURS OF INCUBATION. Resulted Assessment/Plan Assessment/Plan Assessment/Plan: 79-year-old male with known history of COPD who initially presented to the hospital with generalized weakness loss of appetite decreased urine output found to have 1. Multifocal pneumonia 2. Acute hypoxic/COPD secondary to multifocal pneumonia 3. Hyponatremia 4. Leukocytosis likely reactive secondary to multifocal pneumonia but hematology: Disorder can not be excluded 5. Hypertension 6. Sacrococcygeal pressure ulcer -continue broad-spectrum IV antibiotics pulmonary consultation, Hematology consultation- -she was continued to be evaluation and treatment Wound consult for possibly stage II sacrococcygeal wound. Plan discussed with: Patient My Orders Orders - YOKO BOYCE MD Procedure Category Date Status Time Dietary NOTICE 09/13/24 Transmitted Recommendations 14:56 Date of Service: Sep 13, 2024 Billing Provider: YOKO BOYCE MD Common Visit Codes: NOT BILLABLE YOKO BOYCE MD Sep 13, 2024 19:10
--- NOTE | 2024-09-13 19:29 | DVHPN2 ---
Progress Note - Dictate Date Seen: Sep 13, 2024 Medical Necessity Reason Pt with a Central, PICC or Fol: No Subjective Patient seen and examined at bedside. Remains on supplemental oxygen Overnight events reviewed. vital signs Vital Sign Date Time Temp Pulse Resp B/P (MAP) Pulse Ox O2 Delivery O2 Flow Rate FiO2 09/13/24 16:45 98.3 90 16 148/76 (100) 91 98.3 09/13/24 10:02 Nasal Cannula 2.0 09/13/24 10:02 28 Total Intake and Output 09/12/24 09/12/24 09/13/24 15:00 23:00 07:00 Intake Total 1310 ml 1570 ml Output Total 400 ml 900 ml Balance 910 ml 670 ml medications Current Medications Medications Dose Ordered Sig/Cathy Route Start Time Stop Time Status Last Admin Dose Admin Albuterol 2.5 mg Q4HPRN PRN NEB 09/10/24 06:30 09/13/24 09:08 2.5 MG Ipratropium Gleason 0.5 mg Q4HPRN PRN NEB 09/10/24 06:30 09/13/24 09:08 0.5 MG Azithromycin 250 ml @ 125 mls/hr DAILY@2200 IV 09/10/24 22:00 09/12/24 22:55 125 MLS/HR Vancomycin HCl 0 ml @ 0 mls/hr UD IV 09/10/24 06:30 Aspirin 81 mg DAILY PO 09/10/24 10:00 09/13/24 08:49 81 MG Sodium Chloride 1,000 ml @ 60 mls/hr [id number] IV 09/10/24 06:30 09/13/24 01:10 60 MLS/HR Acetaminophen/ Hydrocodone Bitart 1 tab Q4HP PRN PO 09/10/24 06:30 09/13/24 08:49 1 TAB Ondansetron HCl 4 mg Q4HP PRN IV 09/10/24 06:30 Docusate Sodium 100 mg BIDPRN PRN PO 09/10/24 06:30 09/11/24 09:53 100 MG Acetaminophen 650 mg Q6HP PRN PO 09/10/24 06:30 Nitroglycerin 0.4 mg Q5MINP PRN SL 09/10/24 06:30 Morphine Sulfate 2 mg Q30M PRN IV 09/10/24 06:30 09/10/24 15:37 2 MG Hydralazine HCl 10 mg Q6HP PRN IV 09/10/24 07:15 09/11/24 05:31 10 MG Ceftriaxone Sodium 50 ml @ 100 mls/hr DAILY@09 IV 09/11/24 15:45 09/13/24 08:50 100 MLS/HR Enoxaparin Sodium 70 mg Q12HR SC 09/13/24 22:00 UNV Enoxaparin Sodium 70 mg Q12HR SC 09/13/24 22:00 objective Gen.: Patient lying in bed in no apparent distress. On supplemental oxygen. Head: Normocephalic, atraumatic. Eyes: EOMI/PERRLA. Ears: Normal hearing. Normal anatomy. Neck/trachea: Trachea midline, supple. Nose: Normal external anatomy. Mouth: Moist mucous membranes. Chest: Decreased air entry bilaterally. No wheezing or rhonchi. Cardiovascular: Positive S1, positive S2. Regular rate and rhythm. Abdomen: Positive bowel sounds in all 4 quadrants. Soft, non-tender, non- distended. : Deferred. Rectal: Deferred. Skin: Warm, dry. Intact. Extremities: 2+ radial pulses bilaterally. No lower extremity edema. Neuro: Awake, alert, oriented x3. No gross motor or sensory deficits. Cranial nerves II through XII intact. Gait not assessed. laboratory and microbiology Laboratory Tests 09/12/24 05:10 Test 09/12/24 05:10 Range/Units Serum Glucose 66 L 74-106 mg/dL Assessment/Plan Impression: Acute hypoxic respiratory failure Pneumonia COPD Emphysema , paraseptal and centrilobular Fibroid atelectatic opacities in the right middle lobe, lingula and bilateral lower lobes. Calcified pleural plaques in the right upper lobe and posterior aspects of the lower lobes bilaterally Pleural effusions, Atelectasis Hyponatremia Events: Remains on supplemental O2 at 2 LPM NC Taper O2 as tolerated Continue bronchodilators. Continue antibiotics for pneumonia - ceftriaxone and azithromycin Incentive spirometry ID recommendations appreciated. Baxter for pain. WBC 33.1 K on 09/12. Blood cultures negative after 72 hours. Hyponatremia Monitor sodium, 129 on 09/12 - improving. Ultrasound venous Doppler of right lower extremity showed nonocclusive DVT. Start Lovenox 1 mg/kg SC q.12 hours Obtain CTA chest to rule out pulmonary embolism. Labs and imaging reviewed. Rest of plan as noted below. Plan: Supplemental oxygen Keep O2 saturation above 92% CT chest report and images reviewed. Emphysematous changes. Fibro atelectatic opacity in the right middle lobe, lingula and bilateral lower lobes. Calcified plaques in the right upper and bilateral lower lobes and posteriorly. Minimal pleural effusions and atelectasis. Continue antibiotics Monitor WBC count. Trending down. Continue bronchodilators as needed. Pain control. Avoid over-sedation. Incentive spirometry. IV fluids at 60 mL an hour. Monitor renal function. Monitor electrolytes. Supplement as necessary. DVT prophylaxis Prognosis: Guarded given multiple comorbidities. Rest of plan per hospitalist and other consultants. Thank you Dr. Reed for allowing me to participate in this patient's care. Further recommendations will depend on patient's clinical course. Please do not hesitate to contact me if you have any questions or concerns. This medical document was created using an electronic medical record system with [employer] dictation system. Although this document has been carefully reviewed, there may still be some phonetic and typographical errors. These areas are purely typographical due to imperfections of the software programs, and do not reflect any compromise in the patient's medical care. Dietary Evaluation Review Comments: 1) Consider SORAIDA 1 pkt BID for wounds 2) Continue current plan of care Expected Outcomes/Goals: F/U in 3-5 days Plan discussed with: Patient, Other (JEANNINE Bowen) TORITO URBAN MD Sep 13, 2024 19:29
--- NOTE | 2024-09-13 21:54 | DVHPN2 ---
Consult Progress Note Date Seen: Sep 13, 2024 Subjective Patient reports: Other (feeling general weakness , 2 liters nasal canula 97% but occasionally drops to 91%) Objective vital signs Vital Sign Date Time Temp Pulse Resp B/P (MAP) Pulse Ox O2 Delivery O2 Flow Rate FiO2 09/13/24 16:45 98.3 90 16 148/76 (100) 91 98.3 09/13/24 10:02 Nasal Cannula 2.0 09/13/24 10:02 28 Total Intake and Output 09/12/24 09/12/24 09/13/24 15:00 23:00 07:00 Intake Total 1310 ml 1570 ml Output Total 400 ml 900 ml Balance 910 ml 670 ml medications Current Medications Medications Dose Ordered Sig/Cathy Route Start Time Stop Time Status Last Admin Dose Admin Albuterol 2.5 mg Q4HPRN PRN NEB 09/10/24 06:30 09/13/24 09:08 2.5 MG Ipratropium [place] 0.5 mg Q4HPRN PRN NEB 09/10/24 06:30 09/13/24 09:08 0.5 MG Azithromycin 250 ml @ 125 mls/hr DAILY@2200 IV 09/10/24 22:00 09/12/24 22:55 125 MLS/HR Vancomycin HCl 0 ml @ 0 mls/hr UD IV 09/10/24 06:30 Aspirin 81 mg DAILY PO 09/10/24 10:00 09/13/24 08:49 81 MG Sodium Chloride 1,000 ml @ 60 mls/hr [id number] IV 09/10/24 06:30 09/13/24 01:10 60 MLS/HR Acetaminophen/ Hydrocodone Bitart 1 tab Q4HP PRN PO 09/10/24 06:30 09/13/24 08:49 1 TAB Ondansetron HCl 4 mg Q4HP PRN IV 09/10/24 06:30 Docusate Sodium 100 mg BIDPRN PRN PO 09/10/24 06:30 09/11/24 09:53 100 MG Acetaminophen 650 mg Q6HP PRN PO 09/10/24 06:30 Nitroglycerin 0.4 mg Q5MINP PRN SL 09/10/24 06:30 Morphine Sulfate 2 mg Q30M PRN IV 09/10/24 06:30 09/10/24 15:37 2 MG Hydralazine HCl 10 mg Q6HP PRN IV 09/10/24 07:15 09/11/24 05:31 10 MG Ceftriaxone Sodium 50 ml @ 100 mls/hr DAILY@09 IV 09/11/24 15:45 09/13/24 08:50 100 MLS/HR Enoxaparin Sodium 70 mg Q12HR SC 09/13/24 22:00 UNV Enoxaparin Sodium 70 mg Q12HR SC 09/13/24 22:00 Physical Exam: General: Generally weak, malnourished, a little confused, pale skin. Neck: Supple. No masses. HEENT: Forehead abrasion present. PERRL. Normal lids and conjunctiva. Moist mucous membranes. Oropharynx without lesions, exudates, or excessive erythema. Normal external nose and ears. Heart: Tachycardic. Regular rhythm. No murmur. No lower extremity edema. Lungs: Normal respiratory effort. Clear to auscultation bilaterally. No wheezes. No crackles. Abdomen: Soft. Non-tender. Non-distended. No masses or abdominal hernia. Bowel sounds generally weak. Musculoskeletal: Generally weak but able to move all limbs. No regional weakness. No digital cyanosis. Normal strength and tone in all four limbs. Skin: Pale skin. Warm and dry. Forehead abrasion. Stage 2 sacral ulcers; non-purulent, non-eroded. Neuro: Alert but slightly confused. No facial droop or slurred speech. Extra-ocular movements intact. Sensation intact to soft touch in all four limbs. Psych: Appropriate mood. Full affect. Oriented to person, place, and situation. laboratory and microbiology Laboratory Tests 09/12/24 05:10 Test 09/12/24 05:10 Range/Units Serum Glucose 66 L 74-106 mg/dL Problem List/Assessment/Plan Problems(with codes): (1) Generalized weakness (2) Multifocal pneumonia (3) Hyponatremia (4) Hypertension (5) Leukocytosis, unspecified (6) Status asthmaticus (7) Pneumonia (8) COPD (chronic obstructive pulmonary disease) (9) SHORTNESS OF BREATH (10) ASTHMA, CHRONIC OBSTRUCTIVE W ASTHMATICUS Problem List/Assessment/Plan ID Problem List: -- Generalized weakness -- Fall with head injury -- Multifocal pneumonia -- Leukocytosis -- COPD exacerbation -- Hyponatremia -- Stage 2 sacral ulcers -- Tobacco use disorder Assessment This is a 79 y.o. male with a past medical history of asthma, COPD, and depression, who presents with generalized weakness and a fall resulting in a forehead abrasion. He has been experiencing loss of appetite, no bowel movements, and shortness of breath. Laboratory findings show leukocytosis with a WBC count of 35.6??10?/L, thrombocytosis with platelets at 539??10?/L, hyponatremia with sodium at 120?mmol/L, BUN of 22?mg/dL, creatinine of 0.6?mg/dL, glucose of 102?mg/dL, lactic acid of 1.5?mmol/L, and hemoglobin of 13.7?g/dL. CT head showed no acute abnormality. Chest CT revealed thyromegaly and extensive alveolar and parenchymal infiltrates in both lungs, seen in the right middle lobe, lingula, and both lower lobes. He was started empirically on vancomycin and ceftriaxone; azithromycin was later added. The patient has stage 2 sacral ulcers, non-purulent and non-eroded. 11: On imaging his doppler lower extemity ultrasound shows a nonocclusive thrombo scene in the proximal left superficial fomoral vein. CT of lungs which showed no pulmonary embolism. diffuse abnormal tissue density in posterior media steinum extened from the upper thorax to diaphragmatic hiatus with small air bubbles thats increased in size compared to last exam, which could represent nectrotic adenopathy abscess or esophageal injury or rupture. component on the left at the diaphragmatic hiatus is recommended , smoking related lung disease , patchy eclecticism consolidation. Plan: -- defer anticoagulant treatment for DVT to primary team -- defer plans of any CT biopsy of the diaphram hiatus to pulmonology if its accordance to patients goals of care -- Continue vancomycin, ceftriaxone, and azithromycin for multifocal pneumonia and COPD exacerbation. -- Obtain sputum and blood cultures. -- Order procalcitonin level. -- Recommend Doppler ultrasound of lower extremities to evaluate for DVT. -- Monitor WBC count, electrolytes, lactic acid, and renal function. -- Address hyponatremia with appropriate electrolyte management. -- Implement wound care for stage 2 sacral ulcers. -- Encourage bowel movements; consider bowel regimen if needed. -- Monitor vital signs and oxygen saturation. -- Provide smoking cessation counseling. Isolation Precautions: Standard Plan discussed with: Other Dietary Evaluation Review Comments: 1) Consider SORAIDA 1 pkt BID for wounds 2) Continue current plan of care Expected Outcomes/Goals: F/U in 3-5 days SHELBY OQUENDO MD Sep 13, 2024 21:54
[2024-09-13] MEDS: ENOXAPARIN SOD 80 MG/0.8ML SYRINGE SC SCH (21:59)
[2024-09-13] MEDS ORDERED: ENOXAPARIN SOD 100 MG/1 ML SYRINGE SC SCH (22:00)
[2024-09-13] MEDS: APIXABAN 5 MG TAB PO SCH (23:38)
[2024-09-14] VITALS (11 sets, daily range): BP systolic 111–162; BP diastolic 54–64; PULSE 83–96; RESP 18–19; TEMP 97.7–98.4; O2SAT 94–99
--- NOTE | 2024-09-14 08:43 | DVHINCON2 ---
Date of service: Sep 14, [address] Meredith paul Reason for Consultation Leukocytosis with pneumonia History of Present Illness 79 years old gentleman with a history of asthma, COPD, depression. He is admitted with generalized weakness and shortness of breath anorexia. The patient fell down and hit his forehead. His chest CT showed thyromegaly and extensive centrilobular and paraseptal emphysema.. The patient had leukocytosis He had a CT chest angiogram which showed no pulmonary embolism. Diffuse abnormal soft tissue density in the posterior mediastinum extending from the upper thorax to the diaphragmatic hiatus with small air bubbles. This could represent necrotic lymphadenopathy. An abscess is not excluded. CT-guided biopsy was recommended Bibasilar atelectasis and consolidation The venous Doppler of the lower extremities showed nonocclusive thrombus in the proximal left superficial femoral vein The patient is on apixaban 5 mg p.o. Twice a day. He is on ceftriaxone and azithromycin next call I am consulted for leukocytosis with a white count of 33.1 hemoglobin 12.1 platelets 442 with 51% neutrophils and 46% bands confirmed on the blood smear Past Medical History Asthma, COPD, depression Tonsillectomy Family History: Cancer G8 MOTHER (LIVER) Family history: Cardiovascular disease G8 FATHER Family history: Diabetes mellitus G8 BROTHER Stroke G8 FATHER Social History History of smoking less than pack a day. Social alcohol no illicit drugs Allergies: Coded Allergies: Enoxaparin (Verified Allergy, Unknown, 09/14/24) PER PATIENT, HAD A REACTION FROM LOVENOX IN THE PAST. Home Meds Reported Medications Mometasone Furoate (MOMETASONE FUROATE) Pow, 1 XX BID, POW 10/11/14 Loratadine (Loratadine) 10 Mg Tab, 10 MG PO DAILY, TAB 10/11/14 Formoterol Fumarate (Formoterol Fumarate) Fumarate Pow, 12 MCG INH BID, POW 10/11/14 Flunisolide (Nasal) (Flunisolide) 0.025 % Spr, 2 SPRAY NA BID, #25 ML 3 Refills 10/11/14 Cyanocobalamin (B-12) 1,000 Mcg Cap, 1000 MCG PO DAILY, CAP 10/11/14 Cholecalciferol (D3) 400 Unit Cap, 400 UNIT PO DAILY, CAP 10/11/14 Bupropion Hcl (Bupropion Hcl Er) 150 Mg Tab, 1 TAB PO BID, #60 TAB 5 Refills 10/11/14 Bupropion Hcl (Budeprion Sr) 150 Mg Tab, 150 MG PO DAILY, #3 TAB 10/11/14 Albuterol Sulfate (Albuterol Sulfate) 0.083 % Neb, 1 VIAL NEB Q4HPRN, #50 VIAL 10/11/14 Albuterol Sulfate (VENTOLIN MDI) 90 Mcg Ih, 90 MCG IN QID 10/11/14 Tiotropium [place] Monohydrate (Spiriva Handihaler) Handihlr Cap, 1 CAP INH QID, #30 CAP 3 Refills 10/11/14 Current Medications Current Medications Medications (Trade) Dose Ordered Sig/Cathy Route PRN Reason Start Time Stop Time Status Last Admin Enoxaparin Sodium (Lovenox) 70 mg Q12HR SC 09/13/24 22:00 UNV Enoxaparin Sodium (Lovenox) 70 mg Q12HR SC 09/13/24 22:00 09/13/24 23:01 DC Apixaban (Eliquis) 10 mg BID PO 09/13/24 23:00 09/20/24 22:59 09/13/24 23:38 Apixaban (Eliquis) 5 mg BID PO 09/20/24 23:00 Vital Signs Vital Signs Date Time Temp Pulse Resp B/P (MAP) Pulse Ox O2 Delivery O2 Flow Rate FiO2 09/14/24 05:00 97.7 92 18 162/60 (94) 99 97.7 09/13/24 23:29 Nasal Cannula* 2 28 Physical Exam Emaciated gentleman who is lethargic but able to respond to commands No jaundice Head and neck: Unremarkable for any masses or neck nodes. No conjunctival or mucosal hemorrhage Lungs: Clear Cardiovascular: S1-S2 heard well Abdomen: No organomegaly, tenderness or ascites. Bowel sounds are present. Extremities: No clubbing edema cyanosis or calf tenderness. Skin: Unremarkable for petechia purpura ecchymosis. Coccyx ulcer Lymphadenopathy: None Neurological exam: No focal deficit Labs/Diagnostic Data Labs Test 09/14/24 06:17 09/13/24 00:57 09/12/24 15:55 09/12/24 09:51 Range/Units Creatinine 2.10 H 0.700-1.30 mg/dL Glomerular Filtration Rate Calc 31 >90 mL/min Random Vancomycin Level 30.5 H 5-10 ug/mL Vancomycin Level Trough 36.7 *H 5-10 ug/mL Troponin I High Sensitivity 5 </=54 ng/L Blood Gas Specimen Type Arterial Blood Gas Sample Site Left radial Blood Gas Patient Temperature 37.0 Arterial Blood Date Drawn [id number] Arterial Blood pH 7.435 7.350-7.450 Arterial Blood Partial Pressure CO2 35.5 35.0-48.0 mmHg Arterial Blood Partial Pressure O2 67.7 L 83.0-108.0 mmHg Arterial Blood HCO3 23.3 21.0-28.0 mmol/L Arterial Blood Oxygen Saturation 93.5 L 94.0-98.0 % Arterial Blood Base Excess -0.5 -2.0-3.0 mmol/L Arterial Blood Oxyhemoglobin 92.5 L 94.0-98.0 % Arterial Blood Carboxyhemoglobin 0.8 0.5-1.5 % Arterial Blood Methemoglobin 0.3 0.0-1.5 % Sterling Test Yes Blood Gas Total Hemoglobin 13.10 L 13.5-17.5 g/dL Blood Gas Liter Flow 2.00 Blood Gas Modality Nasal cannula FiO2 % 28.0 Test 09/12/24 05:10 09/11/24 03:45 09/10/24 06:52 09/10/24 04:47 Range/Units White Blood Count 33.1 *H 4.4-10.8 10^3/uL Red Blood Count 3.98 L 4.5-5.90 10^6/uL Hemoglobin 12.1 L 13.5-17.5 g/dL Hematocrit 36.2 L 41.0-53.0 % Mean Corpuscular Volume 91.0 80.0-100.0 fL Mean Corpuscular Hemoglobin 30.3 28.0-32.0 pg Mean Corpuscular Hemoglobin Concent 33.3 32.0-36.0 g/dL Red Cell Distribution Width 13.8 11.8-14.3 % Platelet Count 442 140-450 10^3/uL Mean Platelet Volume 6.9 6.9-10.8 fL Neutrophils (%) (Auto) 37.0-80.0 % Lymphocytes (%) (Auto) 10.0-50.0 % Monocytes (%) (Auto) 0.0-12.0 % Basophils (%) (Auto) 0.0-2.0 % Neutrophils # (Auto) 1.6-8.6 10 ^3/uL Lymphocytes # (Auto) 0.4-5.4 10 ^3/uL Monocytes # (Auto) 0-1.3 10 ^3/uL Differential Total Cells Counted 100.0 100 Neutrophils % (Manual) 51 37.0-80.0 Band Neutrophils % (Manual) 46 Lymphocytes % (Manual) 3 L 10.0-50.0 Monocytes % (Manual) 0 0-12 Eosinophils % (Manual) 0 0-7 Basophils % (Manual) 0 0.0-2.0 Metamyelocytes % (manual) 0 Myelocytes % (Manual) 0 Promyelocytes % (Manual) 0 Blast Cells % (Manual) 0 Reactive Lymphocytes 0 Platelet Estimate Adequate Sodium Level 129 #L 136-145 mmol/L Potassium Level 4.1 3.5-5.1 mmol/L Chloride Level 96 L 98-107 mmol/L Carbon Dioxide Level 25 20-31 mmol/L Anion Gap 8 5-15 Blood Urea Nitrogen 30 #H 9-23 mg/dL BUN/Creatinine Ratio 28.6 H 10.0-20.0 Serum Glucose 66 L 74-106 mg/dL Serum Osmolality 277 L 278-298 mOsm/kg Calcium Level 9.0 8.7-10.4 mg/dL Total Bilirubin 0.8 0.2-1.0 mg/dL Aspartate Amino Transferase (AST) 43 H 13-40 U/L Alanine Aminotransferase (ALT) 40 7-40 U/L Alkaline Phosphatase 139 H 46-116 U/L Total Protein 5.9 5.7-8.2 g/dL Albumin 2.8 L 3.2-4.8 g/dL Triglycerides Level 70 < 150 mg/dL Cholesterol Level 80 < 200 mg/dL LDL Cholesterol 42 < 100 mg/dL HDL Cholesterol 16 L 40-59 mg/dL Clumped Platelets Few Large Platelets Few Giant Platelets Few Eosinophils (%) (Auto) 0.1 0.0-7.0 % Eosinophils # (Auto) 0 0-0.8 10 ^3/uL Basophils # (Auto) 0.2 0-0.2 10 ^3/uL Nucleated Red Blood Cells 0.0 % Urine Color Yellow Yellow Urine Clarity Clear Clear Urine pH 6.0 5.0-9.0 Urine Specific [place] 1.031 1.001-1.035 Urine Protein 1+ H Negative Urine Ketones Trace Negative Urine Blood Negative Negative /uL Urine Nitrite Negative Negative Urine Bilirubin Negative Negative Urine Urobilinogen 2 H Negative mg/dL Urine Leukocyte Esterase Negative Negative /uL Urine RBC 3 0 - 3 /hpf Urine WBC 3 0 - 3 /hpf Urine Squamous Epithelial Cells None seen <5 /hpf Urine Bacteria None seen None Seen /hpf Urine Mucus Few None Seen Urine Glucose Normal Normal mg/dL Test 09/10/24 03:10 09/09/24 23:55 Range/Units Lactic Acid Level 1.5 0.4-2.0 mmol/L B-Type Natriuretic Peptide 121.45 0-100 pg/mL Microbiology Date/Time Source Procedure Growth Status 09/10/24 01:18 Blood Blood Culture - Preliminary NO GROWTH AFTER 72 HOURS OF INCUBATION. Resulted Assessment 1. Leukocytosis with significant bands on the blood smear with a white count of 33.1 hemoglobin 12.1 MCV 91 platelets [id number] with 51% neutrophils and 46% bands. Total protein 5.9 albumin 2.8 AST [address] chest angiogram raising concern about pneumonia or necrotic lymphadenopathy Blood cultures are negative Leukocytosis could be reactive secondary to the pneumonia 2. COPD/asthma 3.hypertension 4. Sacral coccygeal pressure ulcer 5. nonocclusive thrombus in the proximal left superficial femoral vein and patient is on apixaban. The DVT could be provoked secondary to the patient's immobility Plan/Recommendation Continue antibiotics and follow onto the CBC. With the treatment of the infection the white count should improve, if not then may evaluate for myeloproliferative disorder Possible necrotic lymph node versus multifocal pneumonia, after treatment with the antibiotics in the next couple of weeks may repeat the CT scan of the chest with contrast to evaluate the possible necrotic lymphadenopathy if still persistent then may consider the biopsy. The patient does have history of smoking any high-risk for lung malignancies Continue the apixaban at least for three months Plan discussed with: Patient JHONY LAU MD Sep 14, 2024 08:43
[2024-09-14 09:04] LABS: Protein, Urine 21.7 mg/dL (1-14)
[2024-09-14 09:07] LABS: Creatinine, Urine 40.31 mg/dL (30.0-125.0); Urine Protein/Creatinine Ratio 0.54
--- NOTE | 2024-09-14 14:12 | DVHPN2 ---
Subjective Patient was multifocal pneumonia currently on p.o. antibiotics. CT chest did mentioned some kind of necrotic lymphadenopathy. Reviewed: Care Plan Changes from previous H/P or p: No Changes Eyes: No Pain, No Vision change, No Conjunctivae inflammation, No Eyelid inflammation, No Other, No Redness ENT: No Ear pain, No Ear discharge, No Nose pain, No Nose discharge, No Nose congestion, No Mouth pain, No Mouth swelling, No Throat pain, No Throat swelling, No Other Cardiovascular: No Chest Pain, No Palpitations, No Orthopnea, No Paroxysmal Noc. Dyspnea, No Edema, No Lt Headedness, No Other Respiratory: No Cough, No Dry; Shortness of breath, SOB with excertion; No Wheezing, No Hemoptysis, No Pleuritic Pain, No Sputum; Other (SOB at rest) Gastrointestinal: Nausea; No Vomiting, No Abdominal Pain, No Diarrhea; C onstipation; No Melena, No Hematochezia; Other (Poor appetite) Genitourinary: No Dysuria, No Frequency, No Incontinence, No Hematuria, No Retention, No Other Musculoskeletal: No other, No neck pain, No shoulder pain, No arm pain, No back pain, No hand pain, No leg pain, No foot pain Skin: No Rash, No Lesions, No Jaundice, No Bruising, No Other Objective Vitals Vital Signs Date Time Temp Pulse Resp B/P (MAP) Pulse Ox O2 Delivery O2 Flow Rate FiO2 09/14/24 13:31 98.3 93 18 155/59 (91) 96 98.3 09/14/24 10:00 Nasal Cannula* 2 28 Intake/Output Intake and Output 09/14/24 07:00 Intake Total 1440 ml Output Total 300 ml Balance 1140 ml Intake Oral 600 ml IV Total 840 ml Output Urine Total 300 ml # Voids 2 Exam HEENT pupils are reactive Neck was supple CV system S2 regular rate and rhythm Respiratory vitals given his pes tendinitis lung bases GI positive bowel sound Extremity no pedal edema [employer]UP[employer]AF[employer] ADVISER no motor deficit Medications Current Medications Medications Dose Ordered Sig/Cathy Route Start Time Stop Time Status Last Admin Dose Admin Albuterol 2.5 mg Q4HPRN PRN NEB 09/10/24 06:30 09/13/24 23:29 2.5 MG Ipratropium [place] 0.5 mg Q4HPRN PRN NEB 09/10/24 06:30 09/13/24 23:29 0.5 MG Azithromycin 250 ml @ 125 mls/hr DAILY@2200 IV 09/10/24 22:00 09/13/24 21:53 125 MLS/HR Vancomycin HCl 0 ml @ 0 mls/hr UD IV 09/10/24 06:30 Aspirin 81 mg DAILY PO 09/10/24 10:00 09/14/24 10:06 81 MG Sodium Chloride 1,000 ml @ 60 mls/hr [id number] IV 09/10/24 06:30 09/13/24 01:10 60 MLS/HR Acetaminophen/ Hydrocodone Bitart 1 tab Q4HP PRN PO 09/10/24 06:30 09/13/24 08:49 1 TAB Ondansetron HCl 4 mg Q4HP PRN IV 09/10/24 06:30 Docusate Sodium 100 mg BIDPRN PRN PO 09/10/24 06:30 09/11/24 09:53 100 MG Acetaminophen 650 mg Q6HP PRN PO 09/10/24 06:30 Nitroglycerin 0.4 mg Q5MINP PRN SL 09/10/24 06:30 Morphine Sulfate 2 mg Q30M PRN IV 09/10/24 06:30 09/10/24 15:37 2 MG Hydralazine HCl 10 mg Q6HP PRN IV 09/10/24 07:15 09/11/24 05:31 10 MG Ceftriaxone Sodium 50 ml @ 100 mls/hr DAILY@09 IV 09/11/24 15:45 09/14/24 09:06 100 MLS/HR Enoxaparin Sodium 70 mg Q12HR SC 09/13/24 22:00 UNV Apixaban 10 mg BID PO 09/13/24 23:00 09/20/24 22:59 09/14/24 10:06 10 MG Apixaban 5 mg BID PO 09/20/24 23:00 Laboratory Results Laboratory Tests 09/12/24 05:10 09/14/24 06:17 Urinalysis Test 09/10/24 04:47 09/14/24 08:00 Urine Color Yellow (Yellow) Urine Clarity Clear (Clear) Urine pH 6.0 (5.0-9.0) Urine Specific [place] 1.031 (1.001-1.035) Urine Protein 1+ (Negative) H Urine Ketones Trace (Negative) Urine Blood Negative /uL (Negative) Urine Nitrite Negative (Negative) Urine Bilirubin Negative (Negative) Urine Urobilinogen 2 mg/dL (Negative) H Urine Leukocyte Esterase Negative /uL (Negative) Urine RBC 3 /hpf (0 - 3) Urine WBC 3 /hpf (0 - 3) Urine Squamous Epithelial Cells None seen /hpf (<5) Urine Bacteria None seen /hpf (None Seen) Urine Mucus Few (None Seen) Urine Glucose Normal mg/dL (Normal) Urine Osmolality 405 mOsm/kg Urine Creatinine 40.31 mg/dL (30.0-125.0) Urine Protein/Creatinine Ratio 0.54 Urine Sodium 24 mmol/L (40-220) L Urine Total Protein 21.7 mg/dL (1-14) H Microbiology Microbiology Date/Time Source Procedure Growth Status 09/10/24 01:18 Blood Blood Culture - Preliminary NO GROWTH AFTER 72 HOURS OF INCUBATION. Resulted Assessment/Plan Assessment/Plan Assessment/Plan: 79-year-old male with known history of COPD who initially presented to the hospital with generalized weakness loss of appetite decreased urine output found to have 1. Multifocal pneumonia 2. Acute hypoxic/COPD secondary to multifocal pneumonia 3. Mediastinal adenopathy/necrotic lymphadenopathy/rule out abscess 4. Leukocytosis likely reactive secondary to multifocal pneumonia but hematology: Disorder can not be excluded 5. Left lower extremity DVT 6. Sacrococcygeal pressure ulcer -continue broad-spectrum IV antibiotics pulmonary consultation, Hematology consultation-appreciated -physical therapy evaluation and treatment -follow up Infectious Disease recommendations. Plan discussed with: Patient My Orders Orders - YOKO BOYCE MD Procedure Category Date Status Time Dietary NOTICE 09/13/24 Transmitted Recommendations 14:56 Date of Service: Sep 14, 2024 Billing Provider: YOKO BOYCE MD Common Visit Codes: NOT BILLABLE YOKO BOYCE MD Sep 14, 2024 14:12
--- NOTE | 2024-09-14 19:56 | DVHPN2 ---
Progress Note - Dictate Date Seen: Sep 14, 2024 Medical Necessity Reason Pt with a Central, PICC or Fol: Yes The following are medically ne: Lara Catheter Reason for lara catheter: Strict I&O Subjective Patient seen and examined at bedside. Remains on supplemental oxygen Overnight events reviewed. vital signs Vital Sign Date Time Temp Pulse Resp B/P (MAP) Pulse Ox O2 Delivery O2 Flow Rate FiO2 09/14/24 18:52 97 Nasal Cannula 2.0 09/14/24 18:52 28 09/14/24 17:00 98.4 89 18 141/57 (85) 98.4 Total Intake and Output 09/13/24 09/13/24 09/14/24 15:00 23:00 07:00 Intake Total 50 ml 350 ml 1040 ml Output Total 300 ml Balance 50 ml 350 ml 740 ml medications Current Medications Medications Dose Ordered Sig/Cathy Route Start Time Stop Time Status Last Admin Dose Admin Albuterol 2.5 mg Q4HPRN PRN NEB 09/10/24 06:30 09/13/24 23:29 2.5 MG Ipratropium [place] 0.5 mg Q4HPRN PRN NEB 09/10/24 06:30 09/13/24 23:29 0.5 MG Azithromycin 250 ml @ 125 mls/hr DAILY@2200 IV 09/10/24 22:00 09/13/24 21:53 125 MLS/HR Vancomycin HCl 0 ml @ 0 mls/hr UD IV 09/10/24 06:30 Aspirin 81 mg DAILY PO 09/10/24 10:00 09/14/24 10:06 81 MG Sodium Chloride 1,000 ml @ 60 mls/hr [id number] IV 09/10/24 06:30 09/13/24 01:10 60 MLS/HR Acetaminophen/ Hydrocodone Bitart 1 tab Q4HP PRN PO 09/10/24 06:30 09/13/24 08:49 1 TAB Ondansetron HCl 4 mg Q4HP PRN IV 09/10/24 06:30 Docusate Sodium 100 mg BIDPRN PRN PO 09/10/24 06:30 09/11/24 09:53 100 MG Acetaminophen 650 mg Q6HP PRN PO 09/10/24 06:30 Nitroglycerin 0.4 mg Q5MINP PRN SL 09/10/24 06:30 Morphine Sulfate 2 mg Q30M PRN IV 09/10/24 06:30 09/10/24 15:37 2 MG Hydralazine HCl 10 mg Q6HP PRN IV 09/10/24 07:15 09/11/24 05:31 10 MG Ceftriaxone Sodium 50 ml @ 100 mls/hr DAILY@09 IV 09/11/24 15:45 09/14/24 09:06 100 MLS/HR Enoxaparin Sodium 70 mg Q12HR SC 09/13/24 22:00 UNV Apixaban 10 mg BID PO 09/13/24 23:00 09/20/24 22:59 09/14/24 10:06 10 MG Apixaban 5 mg BID PO 09/20/24 23:00 objective Gen.: Patient lying in bed in no apparent distress. On supplemental oxygen. Head: Normocephalic, atraumatic. Eyes: EOMI/PERRLA. Ears: Normal hearing. Normal anatomy. Neck/trachea: Trachea midline, supple. Nose: Normal external anatomy. Mouth: Moist mucous membranes. Chest: Decreased air entry bilaterally. No wheezing or rhonchi. Cardiovascular: Positive S1, positive S2. Regular rate and rhythm. Abdomen: Positive bowel sounds in all 4 quadrants. Soft, non-tender, non- distended. : Deferred. Rectal: Deferred. Skin: Warm, dry. Intact. Extremities: 2+ radial pulses bilaterally. No lower extremity edema. Neuro: Awake, alert, oriented x3. No gross motor or sensory deficits. Cranial nerves II through XII intact. Gait not assessed. laboratory and microbiology Laboratory Tests 09/14/24 06:17 09/12/24 05:10 Test 09/12/24 05:10 Range/Units Serum Glucose 66 L 74-106 mg/dL Assessment/Plan Impression: Acute hypoxic respiratory failure Pneumonia COPD Emphysema , paraseptal and centrilobular Fibroid atelectatic opacities in the right middle lobe, lingula and bilateral lower lobes. Calcified pleural plaques in the right upper lobe and posterior aspects of the lower lobes bilaterally Pleural effusions, Atelectasis Hyponatremia Events: Remains on supplemental O2 at 2 LPM NC Taper O2 as tolerated Continue antibiotics - ceftriaxone Incentive spirometry Continue Eliquis for right lower extremity DVT. Lara d/t urinary retention. Pain control Ultrasound venous Doppler of right lower extremity showed nonocclusive DVT. Lovenox 1 mg/kg SC q.12 hours - pt refused CTA chest showed no e/o pulmonary embolism. Labs and imaging reviewed. Rest of plan as noted below. Plan: Supplemental oxygen Keep O2 saturation above 92% CT chest report and images reviewed. Emphysematous changes. Fibro atelectatic opacity in the right middle lobe, lingula and bilateral lower lobes. Calcified plaques in the right upper and bilateral lower lobes and posteriorly. Minimal pleural effusions and atelectasis. Continue antibiotics Monitor WBC count. Blood cultures negative after 72 hours. Continue bronchodilators as needed. Pain control. Avoid over-sedation. Incentive spirometry. IV fluids at 60 mL an hour. Monitor renal function. Monitor electrolytes. Supplement as necessary. Hyponatremia - Monitor sodium DVT prophylaxis Prognosis: Guarded given multiple comorbidities. Rest of plan per hospitalist and other consultants. Thank you Dr. Reed for allowing me to participate in this patient's care. Further recommendations will depend on patient's clinical course. Please do not hesitate to contact me if you have any questions or concerns. This medical document was created using an electronic medical record system with [employer] dictation system. Although this document has been carefully reviewed, there may still be some phonetic and typographical errors. These areas are purely typographical due to imperfections of the software programs, and do not reflect any compromise in the patient's medical care. Dietary Evaluation Review Comments: 1) Consider SORAIDA 1 pkt BID for wounds 2) Continue current plan of care Expected Outcomes/Goals: F/U in 3-5 days Plan discussed with: Patient, Other (RN Summer) TORITO URBAN MD Sep 14, 2024 19:56
[2024-09-14] MEDS: metroNIDAZOLE 500MG/100ML 100 ML IV SCH (21:25)
--- NOTE | 2024-09-14 22:27 | DVHPN2 ---
Consult Progress Note Date Seen: Sep 14, 2024 Subjective Patient reports: Other (2 liters nasal canula, high post voild residual so had a lara replaced , feeling general weakness.) Objective vital signs Vital Sign Date Time Temp Pulse Resp B/P (MAP) Pulse Ox O2 Delivery O2 Flow Rate FiO2 09/14/24 21:33 166/61 09/14/24 21:00 98.3 89 19 98 98.3 09/14/24 20:00 Nasal Cannula* 2 28 Total Intake and Output 09/13/24 09/13/24 09/14/24 15:00 23:00 07:00 Intake Total 50 ml 350 ml 1040 ml Output Total 300 ml Balance 50 ml 350 ml 740 ml medications Current Medications Medications Dose Ordered Sig/Cathy Route Start Time Stop Time Status Last Admin Dose Admin Albuterol 2.5 mg Q4HPRN PRN NEB 09/10/24 06:30 09/13/24 23:29 2.5 MG Ipratropium [place] 0.5 mg Q4HPRN PRN NEB 09/10/24 06:30 09/13/24 23:29 0.5 MG Vancomycin HCl 0 ml @ 0 mls/hr UD IV 09/10/24 06:30 Cancel Aspirin 81 mg DAILY PO 09/10/24 10:00 09/14/24 10:06 81 MG Sodium Chloride 1,000 ml @ 60 mls/hr [id number] IV 09/10/24 06:30 09/13/24 01:10 60 MLS/HR Acetaminophen/ Hydrocodone Bitart 1 tab Q4HP PRN PO 09/10/24 06:30 09/13/24 08:49 1 TAB Ondansetron HCl 4 mg Q4HP PRN IV 09/10/24 06:30 Docusate Sodium 100 mg BIDPRN PRN PO 09/10/24 06:30 09/11/24 09:53 100 MG Acetaminophen 650 mg Q6HP PRN PO 09/10/24 06:30 Nitroglycerin 0.4 mg Q5MINP PRN SL 09/10/24 06:30 Morphine Sulfate 2 mg Q30M PRN IV 09/10/24 06:30 09/10/24 15:37 2 MG Hydralazine HCl 10 mg Q6HP PRN IV 09/10/24 07:15 09/14/24 21:33 10 MG Enoxaparin Sodium 70 mg Q12HR SC 09/13/24 22:00 UNV Apixaban 10 mg BID PO 09/13/24 23:00 09/20/24 22:59 09/14/24 21:29 10 MG Apixaban 5 mg BID PO 09/20/24 23:00 Levofloxacin/ Dextrose 150 ml @ 100 mls/hr DAILY IV 09/15/24 10:00 Metronidazole 100 ml @ 100 mls/hr Q8HR IV 09/14/24 22:00 09/14/24 21:25 100 MLS/HR Physical Exam: General: Generally weak, malnourished, a little confused, pale skin. Neck: Supple. No masses. HEENT: Forehead abrasion present. PERRL. Normal lids and conjunctiva. Moist mucous membranes. Oropharynx without lesions, exudates, or excessive erythema. Normal external nose and ears. Heart: Tachycardic. Regular rhythm. No murmur. No lower extremity edema. Lungs: Normal respiratory effort. Clear to auscultation bilaterally. No wheezes. No crackles. Abdomen: Soft. Non-tender. Non-distended. No masses or abdominal hernia. Bowel sounds generally weak. Musculoskeletal: Generally weak but able to move all limbs. No regional weakness. No digital cyanosis. Normal strength and tone in all four limbs. Skin: Pale skin. Warm and dry. Forehead abrasion. Stage 2 sacral ulcers; non-purulent, non-eroded. Neuro: Alert but slightly confused. No facial droop or slurred speech. Extra-ocular movements intact. Sensation intact to soft touch in all four limbs. Psych: Appropriate mood. Full affect. Oriented to person, place, and situation. laboratory and microbiology Laboratory Tests 09/14/24 06:17 09/12/24 05:10 Test 09/12/24 05:10 Range/Units Serum Glucose 66 L 74-106 mg/dL Problem List/Assessment/Plan Problems(with codes): (1) Pneumonia (2) Status asthmaticus (3) COPD (chronic obstructive pulmonary disease) (4) SHORTNESS OF BREATH (5) ASTHMA, CHRONIC OBSTRUCTIVE W ASTHMATICUS (6) Hypertension (7) Leukocytosis, unspecified (8) Hyponatremia (9) Multifocal pneumonia (10) Generalized weakness Problem List/Assessment/Plan ID Problem List: -- Generalized weakness -- Fall with head injury -- Multifocal pneumonia -- Leukocytosis -- COPD exacerbation -- Hyponatremia -- Stage 2 sacral ulcers -- Tobacco use disorder Assessment This is a 79 y.o. male with a past medical history of asthma, COPD, and depression, who presents with generalized weakness and a fall resulting in a forehead abrasion. He has been experiencing loss of appetite, no bowel movements, and shortness of breath. Laboratory findings show leukocytosis with a WBC count of 35.6??10?/L, thrombocytosis with platelets at 539??10?/L, hyponatremia with sodium at 120?mmol/L, BUN of 22?mg/dL, creatinine of 0.6?mg/dL, glucose of 102?mg/dL, lactic acid of 1.5?mmol/L, and hemoglobin of 13.7?g/dL. CT head showed no acute abnormality. Chest CT revealed thyromegaly and extensive alveolar and parenchymal infiltrates in both lungs, seen in the right middle lobe, lingula, and both lower lobes. He was started empirically on vancomycin and ceftriaxone; azithromycin was later added. The patient has stage 2 sacral ulcers, non-purulent and non-eroded. 09/13: On imaging his doppler lower extemity ultrasound shows a nonocclusive thrombo scene in the proximal left superficial fomoral vein. CT of lungs which showed no pulmonary embolism. diffuse abnormal tissue density in posterior media steinum extened from the upper thorax to diaphragmatic hiatus with small air bubbles thats increased in size compared to last exam, which could represent nectrotic adenopathy abscess or esophageal injury or rupture. component on the left at the diaphragmatic hiatus is recommended , smoking related lung disease , patchy eclecticism consolidation. 09/14: white count remains elevated at 33. Dr choi from oncology saw patinet and suggent proliferative disorder is a possiblility but will asses after antibiotics, as well as consider a biopsy after a few weeks. MRSA nares came negative. Plan: -- consider induced sputum acquisition for bacterial culturing -- patient started on eloquis for DVT for 3 months -- another 2 weeks of antibiotic use for presumed pneumonia -- start IV levofloxacin 750 mg x daily and Start IV flagell , if patient improves on this pedro can send home with oral version of this treatment for an additional 2 weeks -- patient should follow up with infectious disease for chest Ct to see if necrotic lymph node resolved -- defer anticoagulant treatment for DVT to primary team -- outpatient follow up with hematology and oncology -- defer plans of any CT biopsy of the diaphram hiatus to pulmonology if its accordance to patients goals of care -- Stop vancomycin, ceftriaxone, and azithromycin -- Obtain sputum and blood cultures. -- Order procalcitonin level. -- Recommend Doppler ultrasound of lower extremities to evaluate for DVT. -- Monitor WBC count, electrolytes, lactic acid, and renal function. -- Address hyponatremia with appropriate electrolyte management. -- Implement wound care for stage 2 sacral ulcers. -- Encourage bowel movements; consider bowel regimen if needed. -- Monitor vital signs and oxygen saturation. -- Provide smoking cessation counseling. Isolation Precautions: Standard Plan discussed with: Other Dietary Evaluation Review Comments: 1) Consider SORAIDA 1 pkt BID for wounds 2) Continue current plan of care Expected Outcomes/Goals: F/U in 3-5 days SHELBY OQUENDO MD Sep 14, 2024 22:27
[2024-09-15] VITALS (9 sets, daily range): BP systolic 148–176; BP diastolic 67–79; PULSE 85–96; RESP 16–19; TEMP 97.7–98.2; O2SAT 95–98
[2024-09-15 07:48] LABS: Basophils # (auto) 0.1 10 ^3/uL (0-0.2); Basophils % (auto) 0.4 % (0.0-2.0); Eosinophils # (auto) 0.1 10 ^3/uL (0-0.8); Eosinophils % (auto) 0.3 % (0.0-7.0); Hematocrit 38.4 % (41.0-53.0); Lymphocytes # (auto) 0.3 10 ^3/uL (0.4-5.4); Lymphocytes % (auto) 1.1 % (10.0-50.0); Mean Corpuscular Hemoglobin 29.3 pg (28.0-32.0); Mean Corpuscular Hgb Conc. 31.3 g/dL (32.0-36.0); Mean Corpuscular Volume 93.5 fL (80.0-100.0); Monocytes # (auto) 1.4 10 ^3/uL (0-1.3); Monocytes % (auto) 4.9 % (0.0-12.0); Neutrophils # (auto) 26.4 10 ^3/uL (1.6-8.6); Neutrophils % (auto) 93.3 % (37.0-80.0); Platelet Count (auto) 267 10^3/uL (140-450); Red Blood Cells 4.11 10^6/uL (4.5-5.90); Red Cell Distribution Width 15.2 % (11.8-14.3); White Blood Cell 28.3 10^3/uL (4.4-10.8)
[2024-09-15] MEDS: levoFLOXacin 750MG 150 ML IV SCH (10:00)
--- NOTE | 2024-09-15 14:39 | DVHPN2 ---
Subjective Patient was multifocal pneumonia currently on p.o. antibiotics. CT chest did mentioned some kind of necrotic lymphadenopathy. Patient currently complaining of generalized body pain Reviewed: Care Plan Changes from previous H/P or p: No Changes Eyes: No Pain, No Vision change, No Conjunctivae inflammation, No Eyelid inflammation, No Other, No Redness ENT: No Ear pain, No Ear discharge, No Nose pain, No Nose discharge, No Nose congestion, No Mouth pain, No Mouth swelling, No Throat pain, No Throat swelling, No Other Cardiovascular: No Chest Pain, No Palpitations, No Orthopnea, No Paroxysmal Noc. Dyspnea, No Edema, No Lt Headedness, No Other Respiratory: No Cough, No Dry; Shortness of breath, SOB with excertion; No Wheezing, No Hemoptysis, No Pleuritic Pain, No Sputum; Other (SOB at rest) Gastrointestinal: Nausea; No Vomiting, No Abdominal Pain, No Diarrhea; C onstipation; No Melena, No Hematochezia; Other (Poor appetite) Genitourinary: No Dysuria, No Frequency, No Incontinence, No Hematuria, No Retention, No Other Musculoskeletal: No other, No neck pain, No shoulder pain, No arm pain, No back pain, No hand pain, No leg pain, No foot pain Skin: No Rash, No Lesions, No Jaundice, No Bruising, No Other Objective Vitals Vital Signs Date Time Temp Pulse Resp B/P (MAP) Pulse Ox O2 Delivery O2 Flow Rate FiO2 09/15/24 13:00 98.2 85 16 176/76 (109) 98 98.2 09/15/24 10:00 Nasal Cannula* 2 28 Intake/Output Intake and Output 09/15/24 07:00 Intake Total 2140 ml Output Total 2000 ml Balance 140 ml Intake Oral 1400 ml IV Total 740 ml Output Urine Total 2000 ml Exam HEENT pupils are reactive Neck was supple CV system S2 regular rate and rhythm Respiratory vitals given his pes tendinitis lung bases GI positive bowel sound Extremity no pedal edema [employer] no motor deficit Medications Current Medications Medications Dose Ordered Sig/Cathy Route Start Time Stop Time Status Last Admin Dose Admin Albuterol 2.5 mg Q4HPRN PRN NEB 09/10/24 06:30 09/13/24 23:29 2.5 MG Ipratropium [place] 0.5 mg Q4HPRN PRN NEB 09/10/24 06:30 09/13/24 23:29 0.5 MG Vancomycin HCl 0 ml @ 0 mls/hr UD IV 09/10/24 06:30 Cancel Aspirin 81 mg DAILY PO 09/10/24 10:00 09/15/24 10:29 81 MG Sodium Chloride 1,000 ml @ 60 mls/hr [id number] IV 09/10/24 06:30 09/13/24 01:10 60 MLS/HR Acetaminophen/ Hydrocodone Bitart 1 tab Q4HP PRN PO 09/10/24 06:30 09/13/24 08:49 1 TAB Ondansetron HCl 4 mg Q4HP PRN IV 09/10/24 06:30 Docusate Sodium 100 mg BIDPRN PRN PO 09/10/24 06:30 09/11/24 09:53 100 MG Acetaminophen 650 mg Q6HP PRN PO 09/10/24 06:30 Nitroglycerin 0.4 mg Q5MINP PRN SL 09/10/24 06:30 Morphine Sulfate 2 mg Q30M PRN IV 09/10/24 06:30 09/10/24 15:37 2 MG Hydralazine HCl 10 mg Q6HP PRN IV 09/10/24 07:15 09/14/24 21:33 10 MG Enoxaparin Sodium 70 mg Q12HR SC 09/13/24 22:00 UNV Apixaban 10 mg BID PO 09/13/24 23:00 09/20/24 22:59 09/15/24 10:29 10 MG Apixaban 5 mg BID PO 09/20/24 23:00 Levofloxacin/ Dextrose 150 ml @ 100 mls/hr DAILY IV 09/15/24 10:00 Metronidazole 100 ml @ 100 mls/hr Q8HR IV 09/14/24 22:00 09/15/24 13:32 100 MLS/HR Laboratory Results Laboratory Tests 09/12/24 05:10 09/15/24 06:23 Urinalysis Test 09/10/24 04:47 09/14/24 08:00 Urine Color Yellow (Yellow) Urine Clarity Clear (Clear) Urine pH 6.0 (5.0-9.0) Urine Specific [place] 1.031 (1.001-1.035) Urine Protein 1+ (Negative) H Urine Ketones Trace (Negative) Urine Blood Negative /uL (Negative) Urine Nitrite Negative (Negative) Urine Bilirubin Negative (Negative) Urine Urobilinogen 2 mg/dL (Negative) H Urine Leukocyte Esterase Negative /uL (Negative) Urine RBC 3 /hpf (0 - 3) Urine WBC 3 /hpf (0 - 3) Urine Squamous Epithelial Cells None seen /hpf (<5) Urine Bacteria None seen /hpf (None Seen) Urine Mucus Few (None Seen) Urine Glucose Normal mg/dL (Normal) Urine Osmolality 405 mOsm/kg Urine Creatinine 40.31 mg/dL (30.0-125.0) Urine Protein/Creatinine Ratio 0.54 Urine Sodium 24 mmol/L (40-220) L Urine Total Protein 21.7 mg/dL (1-14) H Microbiology Microbiology Date/Time Source Procedure Growth Status 09/13/24 09:50 Nose MRSA Screen - Final Complete 09/10/24 01:18 Blood Blood Culture - Final NO GROWTH AFTER 5 DAYS OF INCUBATION. Complete Assessment/Plan Assessment/Plan Assessment/Plan: 79-year-old male with known history of COPD who initially presented to the hospital with generalized weakness loss of appetite decreased urine output found to have 1. Multifocal pneumonia 2. Acute hypoxic respiratory.failure Secondary to/COPD/multifocal pneumonia 3. Mediastinal adenopathy/necrotic lymphadenopathy/rule out abscess 4. Leukocytosis likely reactive secondary to multifocal pneumonia but hematology: Disorder can not be excluded 5. Left lower extremity DVT 6. Sacrococcygeal pressure ulcer -continue broad-spectrum IV antibiotics Levaquin, Flagyl pulmonary consultation, Hematology consultation-appreciated -continue Eliquis -physical therapy evaluation and treatment -follow up Infectious Disease recommendations. Plan discussed with: Patient, Other Date of Service: Sep 15, 2024 Billing Provider: YOKO BOYCE MD Common Visit Codes: [id number] INP/OBS CARE(MOD) YOKO BOYCE MD Sep 15, 2024 14:39
[2024-09-15 15:05] LABS: Alanine Aminotransferase 43 U/L (7-40); Albumin 2.3 g/dL (3.2-4.8); Alkaline Phosphatase 143 U/L (46-116); Anion Gap 11 (5-15); Aspartate Aminotransferase 62 U/L (13-40); BUN/Creatinine Ratio 45.7 (10.0-20.0); Bilirubin, Total 0.7 mg/dL (0.2-1.0); Blood Urea Nitrogen 16 mg/dL (9-23); Calcium 8.1 mg/dL (8.7-10.4); Carbon Dioxide 19 mmol/L (20-31); Glucose 92 mg/dL (74-106); Potassium 4.4 mmol/L (3.5-5.1); Sodium 138 mmol/L (136-145); Total Protein 5.6 g/dL (5.7-8.2)
[2024-09-15 15:13] LABS: Chloride 108 mmol/L (98-107)
--- NOTE | 2024-09-15 18:41 | DVHPN2 ---
Progress Note - Dictate Date Seen: Sep 15, 2024 Medical Necessity Reason Pt with a Central, PICC or Fol: Yes The following are medically ne: Lara Catheter Reason for lara catheter: Strict I&O Subjective Patient seen and examined at bedside. Remains on supplemental oxygen Overnight events reviewed. vital signs Vital Sign Date Time Temp Pulse Resp B/P (MAP) Pulse Ox O2 Delivery O2 Flow Rate FiO2 09/15/24 18:36 98 Nasal Cannula* 2 28 09/15/24 17:00 98.1 90 16 165/79 (107) 98.1 Total Intake and Output 09/14/24 09/14/24 09/15/24 15:00 23:00 07:00 Intake Total 50 ml 300 ml 1790 ml Output Total 1200 ml 800 ml Balance 50 ml -900 ml 990 ml medications Current Medications Medications Dose Ordered Sig/Cathy Route Start Time Stop Time Status Last Admin Dose Admin Albuterol 2.5 mg Q4HPRN PRN NEB 09/10/24 06:30 09/13/24 23:29 2.5 MG Ipratropium [place] 0.5 mg Q4HPRN PRN NEB 09/10/24 06:30 09/13/24 23:29 0.5 MG Vancomycin HCl 0 ml @ 0 mls/hr UD IV 09/10/24 06:30 Cancel Aspirin 81 mg DAILY PO 09/10/24 10:00 09/15/24 10:29 81 MG Sodium Chloride 1,000 ml @ 60 mls/hr [id number] IV 09/10/24 06:30 09/13/24 01:10 60 MLS/HR Acetaminophen/ Hydrocodone Bitart 1 tab Q4HP PRN PO 09/10/24 06:30 09/13/24 08:49 1 TAB Ondansetron HCl 4 mg Q4HP PRN IV 09/10/24 06:30 Docusate Sodium 100 mg BIDPRN PRN PO 09/10/24 06:30 09/11/24 09:53 100 MG Acetaminophen 650 mg Q6HP PRN PO 09/10/24 06:30 Nitroglycerin 0.4 mg Q5MINP PRN SL 09/10/24 06:30 Morphine Sulfate 2 mg Q30M PRN IV 09/10/24 06:30 09/10/24 15:37 2 MG Hydralazine HCl 10 mg Q6HP PRN IV 09/10/24 07:15 09/15/24 16:56 10 MG Enoxaparin Sodium 70 mg Q12HR SC 09/13/24 22:00 UNV Apixaban 10 mg BID PO 09/13/24 23:00 09/20/24 22:59 09/15/24 10:29 10 MG Apixaban 5 mg BID PO 09/20/24 23:00 Levofloxacin/ Dextrose 150 ml @ 100 mls/hr DAILY IV 09/15/24 10:00 Metronidazole 100 ml @ 100 mls/hr Q8HR IV 09/14/24 22:00 09/15/24 13:32 100 MLS/HR objective Gen.: Patient lying in bed in no apparent distress. On supplemental oxygen. Head: Normocephalic, atraumatic. Eyes: EOMI/PERRLA. Ears: Normal hearing. Normal anatomy. Neck/trachea: Trachea midline, supple. Nose: Normal external anatomy. Mouth: Moist mucous membranes. Chest: Decreased air entry bilaterally. No wheezing or rhonchi. Cardiovascular: Positive S1, positive S2. Regular rate and rhythm. Abdomen: Positive bowel sounds in all 4 quadrants. Soft, non-tender, non- distended. : Deferred. Rectal: Deferred. Skin: Warm, dry. Intact. Extremities: 2+ radial pulses bilaterally. No lower extremity edema. Neuro: Awake, alert, oriented x3. No gross motor or sensory deficits. Cranial nerves II through XII intact. Gait not assessed. laboratory and microbiology Laboratory Tests 09/15/24 06:23 Test 09/15/24 06:23 Range/Units Serum Glucose 92 74-106 mg/dL Assessment/Plan Impression: Acute hypoxic respiratory failure Pneumonia COPD Emphysema , paraseptal and centrilobular Fibroid atelectatic opacities in the right middle lobe, lingula and bilateral lower lobes. Calcified pleural plaques in the right upper lobe and posterior aspects of the lower lobes bilaterally Pleural effusions, Atelectasis Hyponatremia Events: Remains on supplemental O2 at 2 LPM NC Taper O2 as tolerated Incentive spirometry WBC improving. ID recommendations appreciated. Continue Eliquis for right lower extremity DVT. Lara d/t urinary retention. Pain control HERSON resolved after Lara placement - HERSON likely due to urine retention. Labs and imaging reviewed. Rest of plan as noted below. Plan: Supplemental oxygen Keep O2 saturation above 92% CT chest report and images reviewed. Emphysematous changes. Fibro atelectatic opacity in the right middle lobe, lingula and bilateral lower lobes. Calcified plaques in the right upper and bilateral lower lobes and posteriorly. Minimal pleural effusions and atelectasis. Antibiotics Monitor WBC count. Blood cultures negative after 72 hours. Continue bronchodilators as needed. Pain control. Avoid over-sedation. Incentive spirometry. IV fluids at 60 mL an hour. Monitor renal function. Monitor electrolytes. Supplement as necessary. Hyponatremia - Monitor sodium DVT prophylaxis Prognosis: Guarded given multiple comorbidities. Rest of plan per hospitalist and other consultants. Thank you Dr. Reed for allowing me to participate in this patient's care. Further recommendations will depend on patient's clinical course. Please do not hesitate to contact me if you have any questions or concerns. This medical document was created using an electronic medical record system with [employer] dictation system. Although this document has been carefully reviewed, there may still be some phonetic and typographical errors. These areas are purely typographical due to imperfections of the software programs, and do not reflect any compromise in the patient's medical care. Dietary Evaluation Review Comments: 1) Consider SORAIDA 1 pkt BID for wounds 2) Continue current plan of care Expected Outcomes/Goals: F/U in 3-5 days Plan discussed with: Patient, Other (RN Summer) TORITO URBAN MD Sep 15, 2024 18:41
--- NOTE | 2024-09-15 22:10 | DVHPN2 ---
Consult Progress Note Date Seen: Sep 15, 2024 Subjective Patient reports: Feels better (white count is coming down , no spudum production , blood cultures continue to be negative. unable to get levofloxin to shortage at pharmacy) Objective vital signs Vital Sign Date Time Temp Pulse Resp B/P (MAP) Pulse Ox O2 Delivery O2 Flow Rate FiO2 09/15/24 18:36 98 Nasal Cannula* 2 28 09/15/24 17:00 98.1 90 16 165/79 (107) 98.1 Total Intake and Output 09/14/24 09/14/24 09/15/24 15:00 23:00 07:00 Intake Total 50 ml 300 ml 1790 ml Output Total 1200 ml 800 ml Balance 50 ml -900 ml 990 ml medications Current Medications Medications Dose Ordered Sig/Cathy Route Start Time Stop Time Status Last Admin Dose Admin Albuterol 2.5 mg Q4HPRN PRN NEB 09/10/24 06:30 09/13/24 23:29 2.5 MG Ipratropium [place] 0.5 mg Q4HPRN PRN NEB 09/10/24 06:30 09/13/24 23:29 0.5 MG Vancomycin HCl 0 ml @ 0 mls/hr UD IV 09/10/24 06:30 Cancel Aspirin 81 mg DAILY PO 09/10/24 10:00 09/15/24 10:29 81 MG Sodium Chloride 1,000 ml @ 60 mls/hr [id number] IV 09/10/24 06:30 09/15/24 20:50 60 MLS/HR Acetaminophen/ Hydrocodone Bitart 1 tab Q4HP PRN PO 09/10/24 06:30 09/13/24 08:49 1 TAB Ondansetron HCl 4 mg Q4HP PRN IV 09/10/24 06:30 Docusate Sodium 100 mg BIDPRN PRN PO 09/10/24 06:30 09/11/24 09:53 100 MG Acetaminophen 650 mg Q6HP PRN PO 09/10/24 06:30 Nitroglycerin 0.4 mg Q5MINP PRN SL 09/10/24 06:30 Morphine Sulfate 2 mg Q30M PRN IV 09/10/24 06:30 09/10/24 15:37 2 MG Hydralazine HCl 10 mg Q6HP PRN IV 09/10/24 07:15 09/15/24 16:56 10 MG Enoxaparin Sodium 70 mg Q12HR SC 09/13/24 22:00 UNV Apixaban 10 mg BID PO 09/13/24 23:00 09/20/24 22:59 09/15/24 21:12 10 MG Apixaban 5 mg BID PO 09/20/24 23:00 Metronidazole 100 ml @ 100 mls/hr Q8HR IV 09/14/24 22:00 09/15/24 13:32 100 MLS/HR Levofloxacin/ Dextrose 100 ml @ 100 mls/hr DAILY IV 09/16/24 10:00 Physical Exam: General: Generally weak, malnourished, a little confused, pale skin. Neck: Supple. No masses. HEENT: Forehead abrasion present. PERRL. Normal lids and conjunctiva. Moist mucous membranes. Oropharynx without lesions, exudates, or excessive erythema. Normal external nose and ears. Heart: Tachycardic. Regular rhythm. No murmur. No lower extremity edema. Lungs: Normal respiratory effort. Clear to auscultation bilaterally. No wheezes. No crackles. Abdomen: Soft. Non-tender. Non-distended. No masses or abdominal hernia. Bowel sounds generally weak. Musculoskeletal: Generally weak but able to move all limbs. General weakness in arms and legss. No digital cyanosis. Normal strength and tone in all four limbs. Skin: Pale skin. Warm and dry. Forehead abrasion. Stage 2 sacral ulcers; non-purulent, non-eroded. Neuro: Alert but slightly confused. No facial droop or slurred speech. Extra-ocular movements intact. Sensation intact to soft touch in all four limbs. Psych: Appropriate mood. Full affect. Oriented to person, place, and situation. laboratory and microbiology Laboratory Tests 09/15/24 06:23 Test 09/15/24 06:23 Range/Units Serum Glucose 92 74-106 mg/dL Problem List/Assessment/Plan Problems(with codes): (1) Generalized weakness (2) Multifocal pneumonia (3) Hyponatremia (4) Hypertension (5) Leukocytosis, unspecified (6) Status asthmaticus (7) Pneumonia (8) COPD (chronic obstructive pulmonary disease) (9) SHORTNESS OF BREATH (10) ASTHMA, CHRONIC OBSTRUCTIVE W ASTHMATICUS Problem List/Assessment/Plan ID Problem List: -- Generalized weakness -- Fall with head injury -- Multifocal pneumonia -- Leukocytosis -- COPD exacerbation -- Hyponatremia -- Stage 2 sacral ulcers -- Tobacco use disorder Assessment This is a 79 y.o. male with a past medical history of asthma, COPD, and depression, who presents with generalized weakness and a fall resulting in a forehead abrasion. He has been experiencing loss of appetite, no bowel movements, and shortness of breath. Laboratory findings show leukocytosis with a WBC count of 35.6??10?/L, thrombocytosis with platelets at 539??10?/L, hyponatremia with sodium at 120?mmol/L, BUN of 22?mg/dL, creatinine of 0.6?mg/dL, glucose of 102?mg/dL, lactic acid of 1.5?mmol/L, and hemoglobin of 13.7?g/dL. CT head showed no acute abnormality. Chest CT revealed thyromegaly and extensive alveolar and parenchymal infiltrates in both lungs, seen in the right middle lobe, lingula, and both lower lobes. He was started empirically on vancomycin and ceftriaxone; azithromycin was later added. The patient has stage 2 sacral ulcers, non-purulent and non-eroded. 09/13: On imaging his doppler lower extemity ultrasound shows a nonocclusive thrombo scene in the proximal left superficial fomoral vein. CT of lungs which showed no pulmonary embolism. diffuse abnormal tissue density in posterior media steinum extened from the upper thorax to diaphragmatic hiatus with small air bubbles thats increased in size compared to last exam, which could represent nectrotic adenopathy abscess or esophageal injury or rupture. component on the left at the diaphragmatic hiatus is recommended , smoking related lung disease , patchy eclecticism consolidation. 09/14: white count remains elevated at 33. Dr choi from oncology saw patinet and suggent proliferative disorder is a possiblility but will asses after antibiotics, as well as consider a biopsy after a few weeks. MRSA nares came negative. 09/15: white count is slowing coming down and a backorder of levofloxacin Plan: -- Start 500 milligrans IV of levofloxacin -- consider induced sputum acquisition for bacterial culturing -- patient started on eloquis for DVT for 3 months -- another 2 weeks of antibiotic use for presumed pneumonia -- patient should follow up with infectious disease for chest Ct to see if necrotic lymph node resolved -- defer anticoagulant treatment for DVT to primary team -- outpatient follow up with hematology and oncology -- defer plans of any CT biopsy of the diaphram hiatus to pulmonology if its accordance to patients goals of care -- Stop vancomycin, ceftriaxone, and azithromycin -- Obtain sputum and blood cultures. -- Order procalcitonin level. -- Recommend Doppler ultrasound of lower extremities to evaluate for DVT. -- Monitor WBC count, electrolytes, lactic acid, and renal function. -- Address hyponatremia with appropriate electrolyte management. -- Implement wound care for stage 2 sacral ulcers. -- Encourage bowel movements; consider bowel regimen if needed. -- Monitor vital signs and oxygen saturation. -- Provide smoking cessation counseling. Isolation Precautions: Standard Plan discussed with: Other Dietary Evaluation Review Comments: 1) Consider SORAIDA 1 pkt BID for wounds 2) Continue current plan of care Expected Outcomes/Goals: F/U in 3-5 days SHELBY OQUENDO MD Sep 15, 2024 22:10
[2024-09-16] VITALS (12 sets, daily range): BP systolic 142–160; BP diastolic 59–77; PULSE 81–100; RESP 16–20; TEMP 98–98.3; O2SAT 94–100
[2024-09-16 06:46] LABS: Basophils # (auto) 0 10 ^3/uL (0-0.2); Eosinophils # (auto) 0.1 10 ^3/uL (0-0.8); Eosinophils % (auto) 0.3 % (0.0-7.0); Hematocrit 37.8 % (41.0-53.0); Hemoglobin 12.3 g/dL (13.5-17.5); Lymphocytes # (auto) 0.4 10 ^3/uL (0.4-5.4); Lymphocytes % (auto) 1.5 % (10.0-50.0); Mean Corpuscular Hemoglobin 29.6 pg (28.0-32.0); Mean Corpuscular Hgb Conc. 32.6 g/dL (32.0-36.0); Mean Corpuscular Volume 90.8 fL (80.0-100.0); Monocytes # (auto) 1.1 10 ^3/uL (0-1.3); Monocytes % (auto) 4.1 % (0.0-12.0); Neutrophils # (auto) 26.4 10 ^3/uL (1.6-8.6); Neutrophils % (auto) 94.1 % (37.0-80.0); Platelet Count (auto) 381 10^3/uL (140-450); Red Blood Cells 4.16 10^6/uL (4.5-5.90); Red Cell Distribution Width 14.1 % (11.8-14.3)
[2024-09-16 06:47] LABS: Anion Gap 6 (5-15); Carbon Dioxide 29 mmol/L (20-31); Chloride 104 mmol/L (98-107); Potassium 3.6 mmol/L (3.5-5.1); Sodium 139 mmol/L (136-145)
[2024-09-16 06:48] LABS: Calcium 8.3 mg/dL (8.7-10.4)
[2024-09-16 06:52] LABS: Glucose 90 mg/dL (74-106)
[2024-09-16 06:53] LABS: BUN/Creatinine Ratio 51.3 (10.0-20.0); Blood Urea Nitrogen 20 mg/dL (9-23); Magnesium 2.1 mg/dL (1.6-2.6)
[2024-09-16] MEDS: levoFLOXacin 500MG 100 ML IV SCH (11:16)
[2024-09-16] MEDS: Ensure Enlive Strawberry 8oz Bottle PO SCH (18:12)
--- NOTE | 2024-09-16 18:44 | DVHPN2 ---
Progress Note - Dictate Date Seen: Sep 16, 2024 Medical Necessity Reason Pt with a Central, PICC or Fol: Yes The following are medically ne: Lara Catheter Reason for lara catheter: Strict I&O Subjective Patient seen and examined at bedside. Remains on supplemental oxygen Overnight events reviewed. vital signs Vital Sign Date Time Temp Pulse Resp B/P (MAP) Pulse Ox O2 Delivery O2 Flow Rate FiO2 09/16/24 17:00 98.0 100 17 142/59 (86) 97 98.0 09/16/24 10:09 Nasal Cannula* 2 28 Total Intake and Output 09/15/24 09/15/24 09/16/24 15:00 23:00 07:00 Intake Total 100 ml 1036 ml 480 ml Output Total 500 ml 850 ml Balance 100 ml 536 ml -370 ml medications Current Medications Medications Dose Ordered Sig/Cathy Route Start Time Stop Time Status Last Admin Dose Admin Albuterol 2.5 mg Q4HPRN PRN NEB 09/10/24 06:30 09/16/24 10:09 2.5 MG Ipratropium [place] 0.5 mg Q4HPRN PRN NEB 09/10/24 06:30 09/16/24 10:09 0.5 MG Vancomycin HCl 0 ml @ 0 mls/hr UD IV 09/10/24 06:30 Cancel Aspirin 81 mg DAILY PO 09/10/24 10:00 09/16/24 11:15 81 MG Sodium Chloride 1,000 ml @ 60 mls/hr [id number] IV 09/10/24 06:30 09/16/24 15:34 60 MLS/HR Acetaminophen/ Hydrocodone Bitart 1 tab Q4HP PRN PO 09/10/24 06:30 09/13/24 08:49 1 TAB Ondansetron HCl 4 mg Q4HP PRN IV 09/10/24 06:30 Docusate Sodium 100 mg BIDPRN PRN PO 09/10/24 06:30 09/11/24 09:53 100 MG Acetaminophen 650 mg Q6HP PRN PO 09/10/24 06:30 Nitroglycerin 0.4 mg Q5MINP PRN SL 09/10/24 06:30 Morphine Sulfate 2 mg Q30M PRN IV 09/10/24 06:30 09/10/24 15:37 2 MG Hydralazine HCl 10 mg Q6HP PRN IV 09/10/24 07:15 09/15/24 16:56 10 MG Enoxaparin Sodium 70 mg Q12HR SC 09/13/24 22:00 UNV Apixaban 10 mg BID PO 09/13/24 23:00 09/20/24 22:59 09/16/24 11:14 10 MG Apixaban 5 mg BID PO 09/20/24 23:00 Metronidazole 100 ml @ 100 mls/hr Q8HR IV 09/14/24 22:00 09/16/24 15:32 100 MLS/HR Levofloxacin/ Dextrose 100 ml @ 100 mls/hr DAILY IV 09/16/24 10:00 09/16/24 11:16 100 MLS/HR Enteral Nutritional Formula 240 ml TIDWM PO 09/16/24 18:00 09/16/24 18:12 240 ML objective Gen.: Patient lying in bed in no apparent distress. On supplemental oxygen. Head: Normocephalic, atraumatic. Eyes: EOMI/PERRLA. Ears: Normal hearing. Normal anatomy. Neck/trachea: Trachea midline, supple. Nose: Normal external anatomy. Mouth: Moist mucous membranes. Chest: Decreased air entry bilaterally. No wheezing or rhonchi. Cardiovascular: Positive S1, positive S2. Regular rate and rhythm. Abdomen: Positive bowel sounds in all 4 quadrants. Soft, non-tender, non- distended. : Deferred. Rectal: Deferred. Skin: Warm, dry. Intact. Extremities: 2+ radial pulses bilaterally. No lower extremity edema. Neuro: Awake, alert, oriented x3. No gross motor or sensory deficits. Cranial nerves II through XII intact. Gait not assessed. laboratory and microbiology Laboratory Tests 09/16/24 05:45 Test 09/16/24 05:45 Range/Units Serum Glucose 90 74-106 mg/dL Assessment/Plan Impression: Acute hypoxic respiratory failure Pneumonia COPD Emphysema , paraseptal and centrilobular Fibroid atelectatic opacities in the right middle lobe, lingula and bilateral lower lobes. Calcified pleural plaques in the right upper lobe and posterior aspects of the lower lobes bilaterally Pleural effusions, Atelectasis Hyponatremia Events: Remains on supplemental O2 at 2 LPM NC Taper O2 as tolerated Incentive spirometry Continue bronchodilators Continue antibiotics. WBC improving. ID recommendations appreciated. Continue Eliquis for right lower extremity DVT. Lara d/t urinary retention. Pain control HERSON resolved after Lara placement - HERSON likely due to urine retention. Labs and imaging reviewed. Rest of plan as noted below. Plan: Supplemental oxygen Keep O2 saturation above 92% CT chest report and images reviewed. Emphysematous changes. Fibro atelectatic opacity in the right middle lobe, lingula and bilateral lower lobes. Calcified plaques in the right upper and bilateral lower lobes and posteriorly. Minimal pleural effusions and atelectasis. Antibiotics Monitor WBC count. Blood cultures show no growth. Continue bronchodilators as needed. Pain control. Avoid over-sedation. Incentive spirometry. IV fluids at 60 mL an hour. Monitor renal function. Monitor electrolytes. Supplement as necessary. Hyponatremia - Monitor sodium DVT prophylaxis Prognosis: Guarded given multiple comorbidities. Rest of plan per hospitalist and other consultants. Thank you Dr. Reed for allowing me to participate in this patient's care. Further recommendations will depend on patient's clinical course. Please do not hesitate to contact me if you have any questions or concerns. This medical document was created using an electronic medical record system with [employer] dictation system. Although this document has been carefully reviewed, there may still be some phonetic and typographical errors. These areas are purely typographical due to imperfections of the software programs, and do not reflect any compromise in the patient's medical care. Dietary Evaluation Review Comments: 1) Consider SORAIDA 1 pkt BID for wounds 2) Continue current plan of care Expected Outcomes/Goals: F/U in 3-5 days Plan discussed with: Patient, Other (JEANNINE Bishop) TORITO URBAN MD Sep 16, 2024 18:44
--- NOTE | 2024-09-16 22:27 | DVHPN2 ---
Consult Progress Note Date Seen: Sep 16, 2024 Subjective Patient reports: Feels worse (complains about generalized pain as well as weakness) Objective vital signs Vital Sign Date Time Temp Pulse Resp B/P (MAP) Pulse Ox O2 Delivery O2 Flow Rate FiO2 09/16/24 21:00 99 19 149/71 (97) 97 09/16/24 20:21 Nasal Cannula* 2 28 09/16/24 17:00 98.0 98.0 Total Intake and Output 09/15/24 09/15/24 09/16/24 15:00 23:00 07:00 Intake Total 100 ml 1036 ml 480 ml Output Total 500 ml 850 ml Balance 100 ml 536 ml -370 ml medications Current Medications Medications Dose Ordered Sig/Cathy Route Start Time Stop Time Status Last Admin Dose Admin Albuterol 2.5 mg Q4HPRN PRN NEB 09/10/24 06:30 09/16/24 10:09 2.5 MG Ipratropium [place] 0.5 mg Q4HPRN PRN NEB 09/10/24 06:30 09/16/24 10:09 0.5 MG Vancomycin HCl 0 ml @ 0 mls/hr UD IV 09/10/24 06:30 Cancel Aspirin 81 mg DAILY PO 09/10/24 10:00 09/16/24 11:15 81 MG Sodium Chloride 1,000 ml @ 60 mls/hr [id number] IV 09/10/24 06:30 09/16/24 15:34 60 MLS/HR Acetaminophen/ Hydrocodone Bitart 1 tab Q4HP PRN PO 09/10/24 06:30 09/16/24 20:02 1 TAB Ondansetron HCl 4 mg Q4HP PRN IV 09/10/24 06:30 Docusate Sodium 100 mg BIDPRN PRN PO 09/10/24 06:30 09/11/24 09:53 100 MG Acetaminophen 650 mg Q6HP PRN PO 09/10/24 06:30 Nitroglycerin 0.4 mg Q5MINP PRN SL 09/10/24 06:30 Morphine Sulfate 2 mg Q30M PRN IV 09/10/24 06:30 09/10/24 15:37 2 MG Hydralazine HCl 10 mg Q6HP PRN IV 09/10/24 07:15 09/15/24 16:56 10 MG Enoxaparin Sodium 70 mg Q12HR SC 09/13/24 22:00 UNV Apixaban 10 mg BID PO 09/13/24 23:00 09/20/24 22:59 09/16/24 21:33 10 MG Apixaban 5 mg BID PO 09/20/24 23:00 Metronidazole 100 ml @ 100 mls/hr Q8HR IV 09/14/24 22:00 09/16/24 21:32 100 MLS/HR Levofloxacin/ Dextrose 100 ml @ 100 mls/hr DAILY IV 09/16/24 10:00 09/16/24 11:16 100 MLS/HR Enteral Nutritional Formula 240 ml TIDWM PO 09/16/24 18:00 09/16/24 18:12 240 ML Physical Exam: General: Generally weak, malnourished, a little confused, pale skin. Neck: Supple. No masses. HEENT: Forehead abrasion present. PERRL. Normal lids and conjunctiva. Moist mucous membranes. Oropharynx without lesions, exudates, or excessive erythema. Normal external nose and ears. Heart: Tachycardic. Regular rhythm. No murmur. No lower extremity edema. Lungs: Normal respiratory effort. Clear to auscultation bilaterally. No wheezes. No crackles. Abdomen: Soft. Non-tender. Non-distended. No masses or abdominal hernia. Bowel sounds generally weak. Musculoskeletal: Generally weak but able to move all limbs. General weakness in arms and legss. No digital cyanosis. Normal strength and tone in all four limbs. Skin: Pale skin. Warm and dry. Forehead abrasion. Stage 2 sacral ulcers; non-purulent, non-eroded. Neuro: Alert but slightly confused. No facial droop or slurred speech. Extra-ocular movements intact. Sensation intact to soft touch in all four limbs. Psych: Appropriate mood. Full affect. Oriented to person, place, and situation. laboratory and microbiology Laboratory Tests 09/16/24 05:45 Test 09/16/24 05:45 Range/Units Serum Glucose 90 74-106 mg/dL Problem List/Assessment/Plan Problems(with codes): (1) Generalized weakness (2) Multifocal pneumonia (3) Hyponatremia (4) Hypertension (5) Leukocytosis, unspecified (6) Status asthmaticus (7) Pneumonia (8) COPD (chronic obstructive pulmonary disease) (9) SHORTNESS OF BREATH (10) ASTHMA, CHRONIC OBSTRUCTIVE W ASTHMATICUS Problem List/Assessment/Plan ID Problem List: -- Generalized weakness -- Fall with head injury -- Multifocal pneumonia -- Leukocytosis -- COPD exacerbation -- Hyponatremia -- Stage 2 sacral ulcers -- Tobacco use disorder Assessment This is a 79 y.o. male with a past medical history of asthma, COPD, and depression, who presents with generalized weakness and a fall resulting in a forehead abrasion. He has been experiencing loss of appetite, no bowel movements, and shortness of breath. Laboratory findings show leukocytosis with a WBC count of 35.6??10?/L, thrombocytosis with platelets at 539??10?/L, hyponatremia with sodium at 120?mmol/L, BUN of 22?mg/dL, creatinine of 0.6?mg/dL, glucose of 102?mg/dL, lactic acid of 1.5?mmol/L, and hemoglobin of 13.7?g/dL. CT head showed no acute abnormality. Chest CT revealed thyromegaly and extensive alveolar and parenchymal infiltrates in both lungs, seen in the right middle lobe, lingula, and both lower lobes. He was started empirically on vancomycin and ceftriaxone; azithromycin was later added. The patient has stage 2 sacral ulcers, non-purulent and non-eroded. 09/13: On imaging his doppler lower extemity ultrasound shows a nonocclusive thrombo scene in the proximal left superficial fomoral vein. CT of lungs which showed no pulmonary embolism. diffuse abnormal tissue density in posterior media steinum extened from the upper thorax to diaphragmatic hiatus with small air bubbles thats increased in size compared to last exam, which could represent nectrotic adenopathy abscess or esophageal injury or rupture. component on the left at the diaphragmatic hiatus is recommended , smoking related lung disease , patchy eclecticism consolidation. 09/14: white count remains elevated at 33. Dr choi from oncology saw patinet and suggent proliferative disorder is a possiblility but will asses after antibiotics, as well as consider a biopsy after a few weeks. MRSA nares came negative. 09/15: white count is slowing coming down and a backorder of levofloxacin 09/16: white count is slowly downtrending now at 28, 2 liters nasal canula Plan: -- Start 500 milligrans IV of levofloxacin -- consider induced sputum acquisition for bacterial culturing -- patient started on eloquis for DVT for 3 months -- another 2 weeks of antibiotic use for presumed pneumonia -- patient should follow up with infectious disease for chest Ct to see if necrotic lymph node resolved -- defer anticoagulant treatment for DVT to primary team -- outpatient follow up with hematology and oncology -- defer plans of any CT biopsy of the diaphram hiatus to pulmonology if its accordance to patients goals of care -- Order procalcitonin level. -- Implement wound care for stage 2 sacral ulcers. -- Monitor vital signs and oxygen saturation. Isolation Precautions: Standard Plan discussed with: Other Dietary Evaluation Review Comments: 1) Consider SORAIDA 1 pkt BID for wounds 2) Continue current plan of care Expected Outcomes/Goals: F/U in 3-5 days SHELBY OQUENDO MD Sep 16, 2024 22:27
[2024-09-17] VITALS (16 sets, daily range): BP systolic 129–161; BP diastolic 60–68; PULSE 47–109; RESP 0–30; TEMP 98.1–99.7; O2SAT 88–100
[2024-09-17 07:12] LABS: Basophils # (auto) 0 10 ^3/uL (0-0.2); Basophils % (auto) 0.1 % (0.0-2.0); Eosinophils # (auto) 0.1 10 ^3/uL (0-0.8); Eosinophils % (auto) 0.4 % (0.0-7.0); Hematocrit 33.7 % (41.0-53.0); Hemoglobin 11.3 g/dL (13.5-17.5); Lymphocytes # (auto) 0.5 10 ^3/uL (0.4-5.4); Lymphocytes % (auto) 1.8 % (10.0-50.0); Mean Corpuscular Hemoglobin 30.4 pg (28.0-32.0); Mean Corpuscular Hgb Conc. 33.5 g/dL (32.0-36.0); Mean Corpuscular Volume 90.8 fL (80.0-100.0); Monocytes # (auto) 1.2 10 ^3/uL (0-1.3); Neutrophils # (auto) 27.4 10 ^3/uL (1.6-8.6); Neutrophils % (auto) 93.7 % (37.0-80.0); Nucleated Red Blood Cells % 0.1 %; Platelet Count (auto) 418 10^3/uL (140-450); Red Blood Cells 3.71 10^6/uL (4.5-5.90); Red Cell Distribution Width 14.3 % (11.8-14.3); White Blood Cell 29.3 10^3/uL (4.4-10.8)
[2024-09-17 07:22] LABS: Anion Gap 5 (5-15); Carbon Dioxide 28 mmol/L (20-31); Chloride 102 mmol/L (98-107); Potassium 4.1 mmol/L (3.5-5.1); Sodium 135 mmol/L (136-145)
[2024-09-17 07:23] LABS: Calcium 7.9 mg/dL (8.7-10.4)
[2024-09-17 07:28] LABS: BUN/Creatinine Ratio 40.5 (10.0-20.0); Blood Urea Nitrogen 15 mg/dL (9-23); Glucose 108 mg/dL (74-106)
--- NOTE | 2024-09-17 09:43 | DVH ---
CHEST RADIOGRAPH Indication:pna Technique: Single frontal view of the chest was obtained COMPARISON: XY CHEST XRAY 1 VIEW on DOS: 09/12/24, XY CHEST PORTABLE on DOS: 09/10/24 FINDINGS: Lines and Tubes: None Lungs: Unchanged multifocal airspace disease, [id number]. Pleura: Diffuse pleural calcifications. No pneumothorax. Cardiomediastinal contours: Unremarkable Bones: Unremarkable IMPRESSION: No significant interval change.
--- NOTE | 2024-09-17 15:36 | DVHPN2 ---
Subjective Denies any symptoms at this time Reviewed: Care Plan Changes from previous H/P or p: No Changes Eyes: No Pain, No Vision change, No Conjunctivae inflammation, No Eyelid inflammation, No Other, No Redness ENT: No Ear pain, No Ear discharge, No Nose pain, No Nose discharge, No Nose congestion, No Mouth pain, No Mouth swelling, No Throat pain, No Throat swelling, No Other Cardiovascular: No Chest Pain, No Palpitations, No Orthopnea, No Paroxysmal Noc. Dyspnea, No Edema, No Lt Headedness, No Other Respiratory: No Cough, No Dry; Shortness of breath, SOB with excertion; No Wheezing, No Hemoptysis, No Pleuritic Pain, No Sputum; Other (SOB at rest) Gastrointestinal: Nausea; No Vomiting, No Abdominal Pain, No Diarrhea; C onstipation; No Melena, No Hematochezia; Other (Poor appetite) Genitourinary: No Dysuria, No Frequency, No Incontinence, No Hematuria, No Retention, No Other Musculoskeletal: No other, No neck pain, No shoulder pain, No arm pain, No back pain, No hand pain, No leg pain, No foot pain Skin: No Rash, No Lesions, No Jaundice, No Bruising, No Other Objective Vitals Vital Signs Date Time Temp Pulse Resp B/P (MAP) Pulse Ox O2 Delivery O2 Flow Rate FiO2 09/17/24 13:00 98.3 47 19 156/63 (94) 97 98.3 09/17/24 07:30 Nasal Cannula* 2 28 Intake/Output Intake and Output 09/17/24 07:00 Intake Total 2400 ml Output Total 850 ml Balance 1550 ml Intake Oral 1100 ml IV Total 1300 ml Output Urine Total 850 ml General Appearance: Alert, Oriented X3, Cooperative, mild distress HEENT: Atraumatic, PERRLA Lungs: Clear to auscultation Cardiovascular: Normal S1, Normal S2 Abdomen: Normal bowel sounds Genitourinary: No Apparent Abnormalities Musculoskeletal: Normal sensory function, Normal motor function Neuro: Normal speech, Cranial nerves 3-12 NL Skin: Dry, Intact Psych/Mental Status: Mental status NL, Mood NL Medications Current Medications Medications Dose Ordered Sig/Cathy Route Start Time Stop Time Status Last Admin Dose Admin Albuterol 2.5 mg Q4HPRN PRN NEB 09/10/24 06:30 09/17/24 07:30 2.5 MG Ipratropium [place] 0.5 mg Q4HPRN PRN NEB 09/10/24 06:30 09/17/24 07:30 0.5 MG Vancomycin HCl 0 ml @ 0 mls/hr UD IV 09/10/24 06:30 Cancel Aspirin 81 mg DAILY PO 09/10/24 10:00 09/17/24 10:15 81 MG Sodium Chloride 1,000 ml @ 60 mls/hr [id number] IV 09/10/24 06:30 09/16/24 15:34 60 MLS/HR Acetaminophen/ Hydrocodone Bitart 1 tab Q4HP PRN PO 09/10/24 06:30 09/16/24 20:02 1 TAB Ondansetron HCl 4 mg Q4HP PRN IV 09/10/24 06:30 Docusate Sodium 100 mg BIDPRN PRN PO 09/10/24 06:30 09/11/24 09:53 100 MG Acetaminophen 650 mg Q6HP PRN PO 09/10/24 06:30 Nitroglycerin 0.4 mg Q5MINP PRN SL 09/10/24 06:30 Morphine Sulfate 2 mg Q30M PRN IV 09/10/24 06:30 09/10/24 15:37 2 MG Hydralazine HCl 10 mg Q6HP PRN IV 09/10/24 07:15 09/15/24 16:56 10 MG Enoxaparin Sodium 70 mg Q12HR SC 09/13/24 22:00 UNV Apixaban 10 mg BID PO 09/13/24 23:00 09/20/24 22:59 09/17/24 10:15 10 MG Apixaban 5 mg BID PO 09/20/24 23:00 Metronidazole 100 ml @ 100 mls/hr Q8HR IV 09/14/24 22:00 09/17/24 05:21 100 MLS/HR Levofloxacin/ Dextrose 100 ml @ 100 mls/hr DAILY IV 09/16/24 10:00 09/17/24 10:16 100 MLS/HR Enteral Nutritional Formula 240 ml TIDWM PO 09/16/24 18:00 09/17/24 10:16 240 ML Laboratory Results Laboratory Tests 09/17/24 06:48 Chemistry Test 09/17/24 06:48 Calcium Level 7.9 mg/dL (8.7-10.4) L Urinalysis Test 09/10/24 04:47 09/14/24 08:00 Urine Color Yellow (Yellow) Urine Clarity Clear (Clear) Urine pH 6.0 (5.0-9.0) Urine Specific [place] 1.031 (1.001-1.035) Urine Protein 1+ (Negative) H Urine Ketones Trace (Negative) Urine Blood Negative /uL (Negative) Urine Nitrite Negative (Negative) Urine Bilirubin Negative (Negative) Urine Urobilinogen 2 mg/dL (Negative) H Urine Leukocyte Esterase Negative /uL (Negative) Urine RBC 3 /hpf (0 - 3) Urine WBC 3 /hpf (0 - 3) Urine Squamous Epithelial Cells None seen /hpf (<5) Urine Bacteria None seen /hpf (None Seen) Urine Mucus Few (None Seen) Urine Glucose Normal mg/dL (Normal) Urine Osmolality 405 mOsm/kg Urine Creatinine 40.31 mg/dL (30.0-125.0) Urine Protein/Creatinine Ratio 0.54 Urine Sodium 24 mmol/L (40-220) L Urine Total Protein 21.7 mg/dL (1-14) H Microbiology Microbiology Date/Time Source Procedure Growth Status 09/16/24 20:50 Sputum Gram Stain - Final Resulted 09/16/24 20:50 Sputum Respiratory Culture - Preliminary Resulted 09/13/24 09:50 Nose MRSA Screen - Final Complete 09/10/24 01:18 Blood Blood Culture - Final NO GROWTH AFTER 5 DAYS OF INCUBATION. Complete Labs and/or images reviewed: Labs reviewed by me, Image(s) reviewed by me Assessment/Plan Assessment/Plan Plan: -sepsis -pneumonia -necrotizing lymph node -bullous emphysema -acute hypoxic respiratory failure -nicotine dependence -atelectasis -hyponatremia Plan: -ID consultation -pulmonary consultation -continue current antibiotic therapy -induced sputum production -change to pureed diet with supplementation -bronchodilators -PUD, DVT prophylaxis -repeat labs and chest x-ray in a.m. Total time spent with patient discussing and formulating plan of care: 35 minutes. This medical document was created using an electronic medical record system with [employer] system. Although this document has been carefully reviewed, there may still be some phonetic and typographical errors. These areas are purely typographical due to imperfections of the software programs, and do not reflect any compromise in the patient's medical care. Plan discussed with: Patient, Other (rn) My Orders Orders - KYUNG KENDRICK NP Procedure Category Date Status Time Nystatin PHA 09/17/24 Logged (Mouth-Throat) 18:00 Fluconazole PHA 09/17/24 Logged 200mg/100ml (Diflucan 16:00 Fluconazole PHA 09/18/24 Logged 200mg/100ml (Diflucan 10:00 Date of Service: Sep 16, 2024 Billing Provider: KYUNG KENDRICK NP Common Visit Codes: [id number] INP/OBS CARE(HIGH) KYUNG KENDRICK NP Sep 17, 2024 15:36
--- NOTE | 2024-09-17 15:38 | DVHPN2 ---
Subjective Denies any symptoms at this time patient more alert today. Reviewed: Care Plan, H&P, Labs Changes from previous H/P or p: No Changes Eyes: No Pain, No Vision change, No Conjunctivae inflammation, No Eyelid inflammation, No Other, No Redness ENT: No Ear pain, No Ear discharge, No Nose pain, No Nose discharge, No Nose congestion, No Mouth pain, No Mouth swelling, No Throat pain, No Throat swelling, No Other Cardiovascular: No Chest Pain, No Palpitations, No Orthopnea, No Paroxysmal Noc. Dyspnea, No Edema, No Lt Headedness, No Other Respiratory: No Cough, No Dry; Shortness of breath, SOB with excertion; No Wheezing, No Hemoptysis, No Pleuritic Pain, No Sputum; Other (SOB at rest) Gastrointestinal: Nausea; No Vomiting, No Abdominal Pain, No Diarrhea; C onstipation; No Melena, No Hematochezia; Other (Poor appetite) Genitourinary: No Dysuria, No Frequency, No Incontinence, No Hematuria, No Retention, No Other Musculoskeletal: No other, No neck pain, No shoulder pain, No arm pain, No back pain, No hand pain, No leg pain, No foot pain Skin: No Rash, No Lesions, No Jaundice, No Bruising, No Other Objective Vitals Vital Signs Date Time Temp Pulse Resp B/P (MAP) Pulse Ox O2 Delivery O2 Flow Rate FiO2 09/17/24 13:00 98.3 47 19 156/63 (94) 97 98.3 09/17/24 07:30 Nasal Cannula* 2 28 Intake/Output Intake and Output 09/17/24 07:00 Intake Total 2400 ml Output Total 850 ml Balance 1550 ml Intake Oral 1100 ml IV Total 1300 ml Output Urine Total 850 ml General Appearance: Alert, Oriented X3, Cooperative, mild distress HEENT: Atraumatic, PERRLA Lungs: Clear to auscultation Cardiovascular: Normal S1, Normal S2 Abdomen: Normal bowel sounds Genitourinary: No Apparent Abnormalities Musculoskeletal: Normal sensory function, Normal motor function Neuro: Normal speech, Cranial nerves 3-12 NL Skin: Dry, Intact Psych/Mental Status: Mental status NL, Mood NL Medications Current Medications Medications Dose Ordered Sig/Cathy Route Start Time Stop Time Status Last Admin Dose Admin Albuterol 2.5 mg Q4HPRN PRN NEB 09/10/24 06:30 09/17/24 07:30 2.5 MG Ipratropium [place] 0.5 mg Q4HPRN PRN NEB 09/10/24 06:30 09/17/24 07:30 0.5 MG Vancomycin HCl 0 ml @ 0 mls/hr UD IV 09/10/24 06:30 Cancel Aspirin 81 mg DAILY PO 09/10/24 10:00 09/17/24 10:15 81 MG Sodium Chloride 1,000 ml @ 60 mls/hr [id number] IV 09/10/24 06:30 09/16/24 15:34 60 MLS/HR Acetaminophen/ Hydrocodone Bitart 1 tab Q4HP PRN PO 09/10/24 06:30 09/16/24 20:02 1 TAB Ondansetron HCl 4 mg Q4HP PRN IV 09/10/24 06:30 Docusate Sodium 100 mg BIDPRN PRN PO 09/10/24 06:30 09/11/24 09:53 100 MG Acetaminophen 650 mg Q6HP PRN PO 09/10/24 06:30 Nitroglycerin 0.4 mg Q5MINP PRN SL 09/10/24 06:30 Morphine Sulfate 2 mg Q30M PRN IV 09/10/24 06:30 09/10/24 15:37 2 MG Hydralazine HCl 10 mg Q6HP PRN IV 09/10/24 07:15 09/15/24 16:56 10 MG Enoxaparin Sodium 70 mg Q12HR SC 09/13/24 22:00 UNV Apixaban 10 mg BID PO 09/13/24 23:00 09/20/24 22:59 09/17/24 10:15 10 MG Apixaban 5 mg BID PO 09/20/24 23:00 Metronidazole 100 ml @ 100 mls/hr Q8HR IV 09/14/24 22:00 09/17/24 05:21 100 MLS/HR Levofloxacin/ Dextrose 100 ml @ 100 mls/hr DAILY IV 09/16/24 10:00 09/17/24 10:16 100 MLS/HR Enteral Nutritional Formula 240 ml TIDWM PO 09/16/24 18:00 09/17/24 10:16 240 ML Laboratory Results Laboratory Tests 09/17/24 06:48 Chemistry Test 09/17/24 06:48 Calcium Level 7.9 mg/dL (8.7-10.4) L Urinalysis Test 09/10/24 04:47 09/14/24 08:00 Urine Color Yellow (Yellow) Urine Clarity Clear (Clear) Urine pH 6.0 (5.0-9.0) Urine Specific [place] 1.031 (1.001-1.035) Urine Protein 1+ (Negative) H Urine Ketones Trace (Negative) Urine Blood Negative /uL (Negative) Urine Nitrite Negative (Negative) Urine Bilirubin Negative (Negative) Urine Urobilinogen 2 mg/dL (Negative) H Urine Leukocyte Esterase Negative /uL (Negative) Urine RBC 3 /hpf (0 - 3) Urine WBC 3 /hpf (0 - 3) Urine Squamous Epithelial Cells None seen /hpf (<5) Urine Bacteria None seen /hpf (None Seen) Urine Mucus Few (None Seen) Urine Glucose Normal mg/dL (Normal) Urine Osmolality 405 mOsm/kg Urine Creatinine 40.31 mg/dL (30.0-125.0) Urine Protein/Creatinine Ratio 0.54 Urine Sodium 24 mmol/L (40-220) L Urine Total Protein 21.7 mg/dL (1-14) H Microbiology Microbiology Date/Time Source Procedure Growth Status 09/16/24 20:50 Sputum Gram Stain - Final Resulted 09/16/24 20:50 Sputum Respiratory Culture - Preliminary Resulted 09/13/24 09:50 Nose MRSA Screen - Final Complete 09/10/24 01:18 Blood Blood Culture - Final NO GROWTH AFTER 5 DAYS OF INCUBATION. Complete Labs and/or images reviewed: Labs reviewed by me, Image(s) reviewed by me Assessment/Plan Assessment/Plan Plan: -sepsis -pneumonia -necrotizing lymph node -bullous emphysema -acute hypoxic respiratory failure -nicotine dependence -atelectasis -hyponatremia Plan: Events: Induced sputum performed yesterday. Preliminary reviewed. Add nystatin swish and swallow as well as IV Diflucan -ID consultation : Recommendations reviewed -pulmonary consultation -continue current antibiotic therapy -change to pureed diet with supplementation -bronchodilators -PUD, DVT prophylaxis -repeat labs and chest x-ray in a.m. Total time spent with patient discussing and formulating plan of care: 35 minutes. This medical document was created using an electronic medical record system with [employer] system. Although this document has been carefully reviewed, there may still be some phonetic and typographical errors. These areas are purely typographical due to imperfections of the software programs, and do not reflect any compromise in the patient's medical care. Plan discussed with: Patient, Other (RN) My Orders Orders - KYUNG KENDRICK NP Procedure Category Date Status Time Nystatin PHA 09/17/24 Logged (Mouth-Throat) 18:00 Fluconazole PHA 09/17/24 Logged 200mg/100ml (Diflucan 16:00 Fluconazole PHA 09/18/24 Logged 200mg/100ml (Diflucan 10:00 Date of Service: Sep 17, 2024 Billing Provider: KYUNG KENDRICK NP Common Visit Codes: [id number] INP/OBS CARE(HIGH) KYUNG KENDRICK NP Sep 17, 2024 15:38
[2024-09-17] MEDS: FLUCONAZOLE 200MG/100ML 100 ML IV SCH (17:20)
[2024-09-17] MEDS: ALBUTEROL SULF 2.5 MG/0.5ML(0.5%) NEB SOLN NEB SCH (17:57)
[2024-09-17] MEDS: IPRATROPIUM BROM 0.5 MG/2.5ML INH SOL NEB SCH (17:57)
[2024-09-17] MEDS: NYSTATIN (MOUTH-THROAT) 500,000 UNITS/5 ML SUSP MT SCH (18:41)
--- NOTE | 2024-09-17 21:54 | DVHPN2 ---
Progress Note - Dictate Date Seen: Sep 17, 2024 Medical Necessity Reason Pt with a Central, PICC or Fol: Yes The following are medically ne: Lara Catheter Reason for lara catheter: Strict I&O Subjective Patient seen and examined at bedside. Remains on supplemental oxygen Overnight events reviewed. vital signs Vital Sign Date Time Temp Pulse Resp B/P (MAP) Pulse Ox O2 Delivery O2 Flow Rate FiO2 09/17/24 21:00 99.7 98 18 145/68 (93) 100 99.7 09/17/24 20:00 Nasal Cannula* 2 28 Total Intake and Output 09/16/24 09/16/24 09/17/24 15:00 23:00 07:00 Intake Total 100 ml 1150 ml 1150 ml Output Total 850 ml Balance 100 ml 1150 ml 300 ml medications Current Medications Medications Dose Ordered Sig/Cathy Route Start Time Stop Time Status Last Admin Dose Admin Albuterol 2.5 mg Q4HPRN PRN NEB 09/10/24 06:30 09/17/24 16:32 2.5 MG Ipratropium [place] 0.5 mg Q4HPRN PRN NEB 09/10/24 06:30 09/17/24 16:32 0.5 MG Vancomycin HCl 0 ml @ 0 mls/hr UD IV 09/10/24 06:30 Cancel Aspirin 81 mg DAILY PO 09/10/24 10:00 09/17/24 10:15 81 MG Sodium Chloride 1,000 ml @ 60 mls/hr [id number] IV 09/10/24 06:30 09/16/24 15:34 60 MLS/HR Acetaminophen/ Hydrocodone Bitart 1 tab Q4HP PRN PO 09/10/24 06:30 09/16/24 20:02 1 TAB Ondansetron HCl 4 mg Q4HP PRN IV 09/10/24 06:30 Docusate Sodium 100 mg BIDPRN PRN PO 09/10/24 06:30 09/11/24 09:53 100 MG Acetaminophen 650 mg Q6HP PRN PO 09/10/24 06:30 Nitroglycerin 0.4 mg Q5MINP PRN SL 09/10/24 06:30 Morphine Sulfate 2 mg Q30M PRN IV 09/10/24 06:30 09/10/24 15:37 2 MG Hydralazine HCl 10 mg Q6HP PRN IV 09/10/24 07:15 09/15/24 16:56 10 MG Enoxaparin Sodium 70 mg Q12HR SC 09/13/24 22:00 UNV Apixaban 10 mg BID PO 09/13/24 23:00 09/20/24 22:59 09/17/24 21:05 10 MG Apixaban 5 mg BID PO 09/20/24 23:00 Metronidazole 100 ml @ 100 mls/hr Q8HR IV 09/14/24 22:00 09/17/24 21:05 100 MLS/HR Levofloxacin/ Dextrose 100 ml @ 100 mls/hr DAILY IV 09/16/24 10:00 09/17/24 10:16 100 MLS/HR Enteral Nutritional Formula 240 ml TIDWM PO 09/16/24 18:00 09/17/24 18:41 240 ML Nystatin 5 ml QID MT 09/17/24 18:00 09/17/24 21:05 5 ML Fluconazole 100 ml @ 100 mls/hr DAILY IV 09/18/24 10:00 Albuterol 2.5 mg Q4HWA [facility] 09/17/24 18:00 09/17/24 17:57 2.5 MG Ipratropium [place] 0.5 mg Q4HWA [facility] 09/17/24 18:00 09/17/24 17:57 0.5 MG objective Gen.: Patient lying in bed in no apparent distress. On supplemental oxygen. Head: Normocephalic, atraumatic. Eyes: EOMI/PERRLA. Ears: Normal hearing. Normal anatomy. Neck/trachea: Trachea midline, supple. Nose: Normal external anatomy. Mouth: Moist mucous membranes. Chest: Decreased air entry bilaterally. No wheezing or rhonchi. Cardiovascular: Positive S1, positive S2. Regular rate and rhythm. Abdomen: Positive bowel sounds in all 4 quadrants. Soft, non-tender, non- distended. : Deferred. Rectal: Deferred. Skin: Warm, dry. Intact. Extremities: 2+ radial pulses bilaterally. No lower extremity edema. Neuro: Awake, alert, oriented x3. No gross motor or sensory deficits. Cranial nerves II through XII intact. Gait not assessed. laboratory and microbiology Laboratory Tests 09/17/24 06:48 Test 09/17/24 06:48 Range/Units Serum Glucose 108 H 74-106 mg/dL Assessment/Plan Impression: Acute hypoxic respiratory failure Pneumonia COPD Emphysema , paraseptal and centrilobular Fibroid atelectatic opacities in the right middle lobe, lingula and bilateral lower lobes. Calcified pleural plaques in the right upper lobe and posterior aspects of the lower lobes bilaterally Pleural effusions, Atelectasis Hyponatremia Events: Remains on supplemental O2 at 2 LPM NC Taper O2 as tolerated Incentive spirometry Continue bronchodilators Continue antibiotics. Continue Diflucan Continue Eliquis for right lower extremity DVT. Lara d/t urinary retention. Pain control HERSON resolved after Lara placement - HERSON likely due to urine retention. IV fluids at 60 ml/hr. Labs and imaging reviewed. Rest of plan as noted below. Plan: Supplemental oxygen Keep O2 saturation above 92% CT chest report and images reviewed. Emphysematous changes. Fibro atelectatic opacity in the right middle lobe, lingula and bilateral lower lobes. Calcified plaques in the right upper and bilateral lower lobes and posteriorly. Minimal pleural effusions and atelectasis. Antibiotics Monitor WBC count. Blood cultures show no growth. Continue bronchodilators as needed. Pain control. Avoid over-sedation. Incentive spirometry. IV fluids at 60 mL an hour. Monitor renal function. Monitor electrolytes. Supplement as necessary. Hyponatremia - Monitor sodium DVT prophylaxis Prognosis: Guarded given multiple comorbidities. Rest of plan per hospitalist and other consultants. Thank you Dr. Reed for allowing me to participate in this patient's care. Further recommendations will depend on patient's clinical course. Please do not hesitate to contact me if you have any questions or concerns. This medical document was created using an electronic medical record system with [employer] system. Although this document has been carefully reviewed, there may still be some phonetic and typographical errors. These areas are purely typographical due to imperfections of the software programs, and do not reflect any compromise in the patient's medical care. Dietary Evaluation Review Comments: 1) Consider SORAIDA 1 pkt BID for wounds 2) Continue current plan of care Expected Outcomes/Goals: F/U in 3-5 days Plan discussed with: Patient, Other (JEANNINE Youngblood) TORITO URBAN MD Sep 17, 2024 21:54
--- NOTE | 2024-09-17 22:28 | DVHPN2 ---
Consult Progress Note Date Seen: Sep 17, 2024 Subjective Patient reports: No new complaints (continues to have generalized weakness and pain, strenght has mildlhy improved and working with physical therapy ) Objective vital signs Vital Sign Date Time Temp Pulse Resp B/P (MAP) Pulse Ox O2 Delivery O2 Flow Rate FiO2 09/17/24 22:15 95 20 97 09/17/24 21:00 99.7 145/68 (93) 99.7 09/17/24 20:00 Nasal Cannula* 2 28 Total Intake and Output 09/16/24 09/16/24 09/17/24 15:00 23:00 07:00 Intake Total 100 ml 1150 ml 1150 ml Output Total 850 ml Balance 100 ml 1150 ml 300 ml medications Current Medications Medications Dose Ordered Sig/Cathy Route Start Time Stop Time Status Last Admin Dose Admin Albuterol 2.5 mg Q4HPRN PRN NEB 09/10/24 06:30 09/17/24 16:32 2.5 MG Ipratropium [place] 0.5 mg Q4HPRN PRN NEB 09/10/24 06:30 09/17/24 16:32 0.5 MG Vancomycin HCl 0 ml @ 0 mls/hr UD IV 09/10/24 06:30 Cancel Aspirin 81 mg DAILY PO 09/10/24 10:00 09/17/24 10:15 81 MG Sodium Chloride 1,000 ml @ 60 mls/hr [id number] IV 09/10/24 06:30 09/16/24 15:34 60 MLS/HR Acetaminophen/ Hydrocodone Bitart 1 tab Q4HP PRN PO 09/10/24 06:30 09/16/24 20:02 1 TAB Ondansetron HCl 4 mg Q4HP PRN IV 09/10/24 06:30 Docusate Sodium 100 mg BIDPRN PRN PO 09/10/24 06:30 09/11/24 09:53 100 MG Acetaminophen 650 mg Q6HP PRN PO 09/10/24 06:30 Nitroglycerin 0.4 mg Q5MINP PRN SL 09/10/24 06:30 Morphine Sulfate 2 mg Q30M PRN IV 09/10/24 06:30 09/10/24 15:37 2 MG Hydralazine HCl 10 mg Q6HP PRN IV 09/10/24 07:15 09/15/24 16:56 10 MG Enoxaparin Sodium 70 mg Q12HR SC 09/13/24 22:00 UNV Apixaban 10 mg BID PO 09/13/24 23:00 09/20/24 22:59 09/17/24 21:05 10 MG Apixaban 5 mg BID PO 09/20/24 23:00 Metronidazole 100 ml @ 100 mls/hr Q8HR IV 09/14/24 22:00 09/17/24 21:05 100 MLS/HR Levofloxacin/ Dextrose 100 ml @ 100 mls/hr DAILY IV 09/16/24 10:00 09/17/24 10:16 100 MLS/HR Enteral Nutritional Formula 240 ml TIDWM PO 09/16/24 18:00 09/17/24 18:41 240 ML Nystatin 5 ml QID MT 09/17/24 18:00 09/17/24 21:05 5 ML Fluconazole 100 ml @ 100 mls/hr DAILY IV 09/18/24 10:00 Albuterol 2.5 mg Q4HWA [facility] 09/17/24 18:00 09/17/24 22:14 2.5 MG Ipratropium [place] 0.5 mg Q4HWA [facility] 09/17/24 18:00 09/17/24 22:14 0.5 MG Physical Exam: General: Generally weak, malnourished, a little confused, pale skin. Neck: Supple. No masses. HEENT: Forehead abrasion present. PERRL. Normal lids and conjunctiva. Moist mucous membranes. Oropharynx without lesions, exudates, or excessive erythema. Normal external nose and ears. Heart: Tachycardic. Regular rhythm. No murmur. No lower extremity edema. Lungs: Normal respiratory effort. Clear to auscultation bilaterally. No wheezes. No crackles. Abdomen: Soft. Non-tender. Non-distended. No masses or abdominal hernia. Bowel sounds generally weak. Musculoskeletal: Generally weak but able to move all limbs. General weakness in arms and legss. No digital cyanosis. Normal strength and tone in all four limbs. Skin: Pale skin. Warm and dry. Forehead abrasion. Stage 2 sacral ulcers; non-purulent, non-eroded. Neuro: Alert but slightly confused. No facial droop or slurred speech. Extra-ocular movements intact. Sensation intact to soft touch in all four limbs. Psych: Appropriate mood. Full affect. Oriented to person, place, and situation. laboratory and microbiology Laboratory Tests 09/17/24 06:48 Test 09/17/24 06:48 Range/Units Serum Glucose 108 H 74-106 mg/dL Problem List/Assessment/Plan Problems(with codes): (1) ASTHMA, CHRONIC OBSTRUCTIVE W ASTHMATICUS (2) SHORTNESS OF BREATH (3) COPD (chronic obstructive pulmonary disease) (4) Pneumonia (5) Status asthmaticus (6) Leukocytosis, unspecified (7) Hypertension (8) Hyponatremia (9) Multifocal pneumonia (10) Generalized weakness Problem List/Assessment/Plan ID Problem List: -- Generalized weakness -- Fall with head injury -- Multifocal pneumonia -- Leukocytosis -- COPD exacerbation -- Hyponatremia -- Stage 2 sacral ulcers -- Tobacco use disorder Assessment This is a 79 y.o. male with a past medical history of asthma, COPD, and depression, who presents with generalized weakness and a fall resulting in a forehead abrasion. He has been experiencing loss of appetite, no bowel movements, and shortness of breath. Laboratory findings show leukocytosis with a WBC count of 35.6??10?/L, thrombocytosis with platelets at 539??10?/L, hyponatremia with sodium at 120?mmol/L, BUN of 22?mg/dL, creatinine of 0.6?mg/dL, glucose of 102?mg/dL, lactic acid of 1.5?mmol/L, and hemoglobin of 13.7?g/dL. CT head showed no acute abnormality. Chest CT revealed thyromegaly and extensive alveolar and parenchymal infiltrates in both lungs, seen in the right middle lobe, lingula, and both lower lobes. He was started empirically on vancomycin and ceftriaxone; azithromycin was later added. The patient has stage 2 sacral ulcers, non-purulent and non-eroded. 09/13: On imaging his doppler lower extemity ultrasound shows a nonocclusive thrombo scene in the proximal left superficial fomoral vein. CT of lungs which showed no pulmonary embolism. diffuse abnormal tissue density in posterior media steinum extened from the upper thorax to diaphragmatic hiatus with small air bubbles thats increased in size compared to last exam, which could represent nectrotic adenopathy abscess or esophageal injury or rupture. component on the left at the diaphragmatic hiatus is recommended , smoking related lung disease , patchy eclecticism consolidation. 09/14: white count remains elevated at 33. Dr choi from oncology saw patinet and suggent proliferative disorder is a possiblility but will asses after antibiotics, as well as consider a biopsy after a few weeks. MRSA nares came negative. 09/15: white count is slowing coming down and a backorder of levofloxacin 09/16: white count is slowly downtrending now at 28, 2 liters nasal canula 09/17: Patient was able to produce and induced sputum sample and so far results are with no growth Plan: -- Start 500 milligrans IV of levofloxacin -- consider induced sputum acquisition for bacterial culturing -- patient started on eloquis for DVT for 3 months -- another 2 weeks of antibiotic use for presumed pneumonia -- patient should follow up with infectious disease for chest Ct to see if necrotic lymph node resolved -- defer anticoagulant treatment for DVT to primary team -- outpatient follow up with hematology and oncology -- defer plans of any CT biopsy of the diaphram hiatus to pulmonology if its accordance to patients goals of care -- Order procalcitonin level. -- Implement wound care for stage 2 sacral ulcers. -- Monitor vital signs and oxygen saturation. Isolation Precautions: Standard Plan discussed with: Other Dietary Evaluation Review Comments: 1) Consider SORAIDA 1 pkt BID for wounds 2) Continue current plan of care Expected Outcomes/Goals: F/U in 3-5 days SHELBY OQUENDO MD Sep 17, 2024 22:28
[2024-09-18] VITALS (18 sets, daily range): BP systolic 105–156; BP diastolic 50–80; PULSE 85–115; RESP 16–19; TEMP 98.5–101.1; O2SAT 92–100
[2024-09-18] MEDS: ACETAMINOPHEN 325 MG TAB PO PRN (00:12)
[2024-09-18] MEDS: FLUCONAZOLE 200MG/100ML 100 ML IV SCH (09:12)
--- NOTE | 2024-09-18 10:16 | DVHPN2 ---
Subjective Denies any symptoms at this time patient more alert today. Reviewed: Care Plan, H&P, Labs Changes from previous H/P or p: No Changes Eyes: No Pain, No Vision change, No Conjunctivae inflammation, No Eyelid inflammation, No Other, No Redness ENT: No Ear pain, No Ear discharge, No Nose pain, No Nose discharge, No Nose congestion, No Mouth pain, No Mouth swelling, No Throat pain, No Throat swelling, No Other Cardiovascular: No Chest Pain, No Palpitations, No Orthopnea, No Paroxysmal Noc. Dyspnea, No Edema, No Lt Headedness, No Other Respiratory: No Cough, No Dry; Shortness of breath, SOB with excertion; No Wheezing, No Hemoptysis, No Pleuritic Pain, No Sputum; Other (SOB at rest) Gastrointestinal: Nausea; No Vomiting, No Abdominal Pain, No Diarrhea; C onstipation; No Melena, No Hematochezia; Other (Poor appetite) Genitourinary: No Dysuria, No Frequency, No Incontinence, No Hematuria, No Retention, No Other Musculoskeletal: No other, No neck pain, No shoulder pain, No arm pain, No back pain, No hand pain, No leg pain, No foot pain Skin: No Rash, No Lesions, No Jaundice, No Bruising, No Other Objective Vitals Vital Signs Date Time Temp Pulse Resp B/P (MAP) Pulse Ox O2 Delivery O2 Flow Rate FiO2 09/18/24 07:47 85 16 100 09/18/24 07:41 Nasal Cannula* 2 28 09/18/24 05:00 99.0 126/58 (80) 99.0 Intake/Output Intake and Output 09/18/24 07:00 Intake Total 2000 ml Output Total 950 ml Balance 1050 ml Intake Oral 1700 ml IV Total 300 ml Output Urine Total 950 ml General Appearance: Alert, Oriented X3, Cooperative, mild distress HEENT: Atraumatic, PERRLA Lungs: Clear to auscultation Cardiovascular: Normal S1, Normal S2 Abdomen: Normal bowel sounds Genitourinary: No Apparent Abnormalities Musculoskeletal: Normal sensory function, Normal motor function Neuro: Normal speech, Cranial nerves 3-12 NL Skin: Dry, Intact Psych/Mental Status: Mental status NL, Mood NL Medications Current Medications Medications Dose Ordered Sig/Cathy Route Start Time Stop Time Status Last Admin Dose Admin Albuterol 2.5 mg Q4HPRN PRN NEB 09/10/24 06:30 09/17/24 16:32 2.5 MG Ipratropium [place] 0.5 mg Q4HPRN PRN NEB 09/10/24 06:30 09/17/24 16:32 0.5 MG Vancomycin HCl 0 ml @ 0 mls/hr UD IV 09/10/24 06:30 Cancel Aspirin 81 mg DAILY PO 09/10/24 10:00 09/17/24 10:15 81 MG Sodium Chloride 1,000 ml @ 60 mls/hr [id number] IV 09/10/24 06:30 09/16/24 15:34 60 MLS/HR Acetaminophen/ Hydrocodone Bitart 1 tab Q4HP PRN PO 09/10/24 06:30 09/18/24 09:12 1 TAB Ondansetron HCl 4 mg Q4HP PRN IV 09/10/24 06:30 Docusate Sodium 100 mg BIDPRN PRN PO 09/10/24 06:30 09/11/24 09:53 100 MG Acetaminophen 650 mg Q6HP PRN PO 09/10/24 06:30 09/18/24 00:12 650 MG Nitroglycerin 0.4 mg Q5MINP PRN SL 09/10/24 06:30 Morphine Sulfate 2 mg Q30M PRN IV 09/10/24 06:30 09/10/24 15:37 2 MG Hydralazine HCl 10 mg Q6HP PRN IV 09/10/24 07:15 09/15/24 16:56 10 MG Enoxaparin Sodium 70 mg Q12HR SC 09/13/24 22:00 UNV Apixaban 10 mg BID PO 09/13/24 23:00 09/20/24 22:59 09/17/24 21:05 10 MG Apixaban 5 mg BID PO 09/20/24 23:00 Metronidazole 100 ml @ 100 mls/hr Q8HR IV 09/14/24 22:00 09/18/24 05:07 100 MLS/HR Levofloxacin/ Dextrose 100 ml @ 100 mls/hr DAILY IV 09/16/24 10:00 09/17/24 10:16 100 MLS/HR Enteral Nutritional Formula 240 ml TIDWM PO 09/16/24 18:00 09/18/24 08:00 240 ML Nystatin 5 ml QID MT 09/17/24 18:00 09/18/24 05:07 5 ML Fluconazole 100 ml @ 100 mls/hr DAILY IV 09/18/24 10:00 09/18/24 09:12 100 MLS/HR Albuterol 2.5 mg Q4HWA [facility] 09/17/24 18:00 09/18/24 07:41 2.5 MG Ipratropium [place] 0.5 mg Q4HWA [facility] 09/17/24 18:00 09/18/24 07:41 0.5 MG Laboratory Results Laboratory Tests 09/17/24 06:48 Urinalysis Test 09/10/24 04:47 09/14/24 08:00 Urine Color Yellow (Yellow) Urine Clarity Clear (Clear) Urine pH 6.0 (5.0-9.0) Urine Specific [place] 1.031 (1.001-1.035) Urine Protein 1+ (Negative) H Urine Ketones Trace (Negative) Urine Blood Negative /uL (Negative) Urine Nitrite Negative (Negative) Urine Bilirubin Negative (Negative) Urine Urobilinogen 2 mg/dL (Negative) H Urine Leukocyte Esterase Negative /uL (Negative) Urine RBC 3 /hpf (0 - 3) Urine WBC 3 /hpf (0 - 3) Urine Squamous Epithelial Cells None seen /hpf (<5) Urine Bacteria None seen /hpf (None Seen) Urine Mucus Few (None Seen) Urine Glucose Normal mg/dL (Normal) Urine Osmolality 405 mOsm/kg Urine Creatinine 40.31 mg/dL (30.0-125.0) Urine Protein/Creatinine Ratio 0.54 Urine Sodium 24 mmol/L (40-220) L Urine Total Protein 21.7 mg/dL (1-14) H Microbiology Microbiology Date/Time Source Procedure Growth Status 09/16/24 20:50 Sputum Gram Stain - Final Resulted 09/16/24 20:50 Sputum Respiratory Culture - Preliminary Resulted 09/13/24 09:50 Nose MRSA Screen - Final Complete 09/10/24 01:18 Blood Blood Culture - Final NO GROWTH AFTER 5 DAYS OF INCUBATION. Complete Labs and/or images reviewed: Labs reviewed by me, Image(s) reviewed by me Assessment/Plan Assessment/Plan Plan: -sepsis -pneumonia -necrotizing lymph node -bullous emphysema -acute hypoxic respiratory failure -nicotine dependence -atelectasis -hyponatremia Plan: Events: Fevers overnight. Worsening leukocytosis. Repeat CT scan of chest. -ID consultation : Recommendations reviewed -pulmonary consultation -continue current antibiotic therapy : Flagyl, Levaquin,nystatin swish and swallow as well as IV Diflucan -change to pureed diet with supplementation -bronchodilators -PUD, DVT prophylaxis -repeat labs and chest x-ray in a.m. Total time spent with patient discussing and formulating plan of care: 35 minutes. This medical document was created using an electronic medical record system with [employer] dictation system. Although this document has been carefully reviewed, there may still be some phonetic and typographical errors. These areas are purely typographical due to imperfections of the software programs, and do not reflect any compromise in the patient's medical care. Plan discussed with: Patient, Other (RN) My Orders Orders - KYUNG KENDRICK NP Procedure Category Date Status Time Nystatin PHA 09/17/24 In Process (Mouth-Throat) 18:00 Fluconazole PHA 09/18/24 In Process 200mg/100ml (Diflucan 10:00 Albuterol Medneb PHA 09/17/24 In Process (Ventolin Medneb) 18:00 Ipratropium Med[place] PHA 09/17/24 In Process (Atrovent Medneb) 18:00 Complete Blood Count LAB 09/19/24 Verified 05:00 Complete Blood Count LAB 09/20/24 Verified 05:00 Complete Blood Count LAB 09/21/24 Verified 05:00 Blood Culture MATTHEW 09/18/24 Logged 07:29 Date of Service: Sep 18, 2024 Billing Provider: KYUNG KENDRICK NP Common Visit Codes: [id number] INP/OBS CARE(HIGH) KYUNG KENDRICK NP Sep 18, 2024 10:16
--- NOTE | 2024-09-18 12:03 | DVH ---
RIGHT Upper Extremity Venous Duplex Clinical History: right arm swollen, warm and red Comparison: US BILAT LOWER DVT on DOS: 09/13/24 Findings: Duplex Doppler evaluation of the venous system of the RIGHT lower neck and upper extremity including color Doppler and spectral/pulsed waveform analysis was performed. The internal jugular vein demonstrates appropriate compressibility and waveform variability . The subclavian vein is patent on color Doppler evaluation without intraluminal thrombus and demonstra reema waveform variability . The visualized portion of the brachiocephalic vein is patent on color Doppler evaluation without intr aluminal thrombus and demonstrates waveform variability . The axillary vein demonstrates appropriate compressibility and waveform variability . The brachial veins demonstrate appropriate compressibility and patency on Doppler evaluation. The basilic vein demonstrates appropriate compressibility and patency on Doppler evaluation. The cephalic vein demonstrates thrombus Impression: The cephalic vein demonstrates thrombus If clinical concern/symptoms persist or worsen, short-interval follow-up study is suggested.
--- NOTE | 2024-09-18 13:46 | DVH ---
CT Chest without intravenous contrast INDICATION: Reassess necrotic lymph node TECHNIQUE: Multidetector spiral CT of the chest was performed from the lung apices to the upper abdom en. Axial, coronal and sagittal multiplanar reformats were performed. Radiation Dose : 1. Chest: CTDI volume is 13.69 mGy. Dose-length product is 518.59 mGy*cm The dose indicators for CT are the volume Computed Tomography (CT) Dose Index (CTDIvol) and the Dose Length Product (DLP), and are measured in units of mGy and mGy-cm, respectively. These indicators are not patient dose, but values generated from the CT scanner acquisition factors. The report includes radiation exposure data for exposures received during this examination. Comparison: CT CT ANGIO CHEST CONTRAST on DOS: 09/13/24, CT CHEST WITH CONTRAST on DOS: 09/10/24, CT H EAD WITHOUT CONTRAST on DOS: 09/09/24 Findings: Lower neck: Normal thyroid. Lungs: Patchy bibasilar atelectasis and masslike consolidations. Severe paraseptal emphysema. Heart/Vascular Structures: Normal heart size. No pericardial effusion. Lymph Nodes: Redemonstration of extensive abnormal soft tissue density in the posterior mediastinum m easuring up to 6.3 cm, likely reflecting necrotic lymphadenopathy. Pleura: Stable small bilateral pleural effusions. Calcified pleural plaques bilaterally. Fall is this Musculoskeletal: No acute osseous abnormality. Soft tissues: Normal. Upper abdomen: Limited portions of the upper abdomen are unremarkable. IMPRESSION: 1. Stable masslike consolidations throughout both lungs. 2. Redemonstration of abnormal soft tissue density throughout the posterior , likely reflecting necro tic lymphadenopathy. Again, image guided biopsy is recommended. 3. Overall, no significant interval change since September 13, 2024. Radiation optimization: All CT scans at this facility use at least one of these dose optimization parveen hniques: automated exposure control mA and/or kV adjustment per patient size (includes targeted exam s where dose is matched to clinical indication) or iterative reconstruction.
--- NOTE | 2024-09-18 21:38 | DVHPN2 ---
Progress Note - Dictate Date Seen: Sep 18, 2024 Medical Necessity Reason Pt with a Central, PICC or Fol: Yes The following are medically ne: Lara Catheter Reason for lara catheter: Strict I&O Subjective Patient seen and examined at bedside. Remains on supplemental oxygen Overnight events reviewed. vital signs Vital Sign Date Time Temp Pulse Resp B/P (MAP) Pulse Ox O2 Delivery O2 Flow Rate FiO2 09/18/24 18:14 99 16 100 09/18/24 18:06 Nasal Cannula* 2 28 09/18/24 17:00 98.6 141/68 (92) 98.6 Total Intake and Output 09/17/24 09/17/24 09/18/24 15:00 23:00 07:00 Intake Total 100 ml 1000 ml 900 ml Output Total 550 ml 400 ml Balance 100 ml 450 ml 500 ml medications Current Medications Medications Dose Ordered Sig/Cathy Route Start Time Stop Time Status Last Admin Dose Admin Albuterol 2.5 mg Q4HPRN PRN NEB 09/10/24 06:30 09/17/24 16:32 2.5 MG Ipratropium [place] 0.5 mg Q4HPRN PRN NEB 09/10/24 06:30 09/17/24 16:32 0.5 MG Vancomycin HCl 0 ml @ 0 mls/hr UD IV 09/10/24 06:30 Cancel Aspirin 81 mg DAILY PO 09/10/24 10:00 09/18/24 10:48 81 MG Sodium Chloride 1,000 ml @ 60 mls/hr [id number] IV 09/10/24 06:30 09/16/24 15:34 60 MLS/HR Acetaminophen/ Hydrocodone Bitart 1 tab Q4HP PRN PO 09/10/24 06:30 09/18/24 09:12 1 TAB Ondansetron HCl 4 mg Q4HP PRN IV 09/10/24 06:30 Docusate Sodium 100 mg BIDPRN PRN PO 09/10/24 06:30 09/11/24 09:53 100 MG Acetaminophen 650 mg Q6HP PRN PO 09/10/24 06:30 09/18/24 00:12 650 MG Nitroglycerin 0.4 mg Q5MINP PRN SL 09/10/24 06:30 Morphine Sulfate 2 mg Q30M PRN IV 09/10/24 06:30 09/10/24 15:37 2 MG Hydralazine HCl 10 mg Q6HP PRN IV 09/10/24 07:15 09/15/24 16:56 10 MG Enoxaparin Sodium 70 mg Q12HR SC 09/13/24 22:00 UNV Apixaban 10 mg BID PO 09/13/24 23:00 09/20/24 22:59 09/18/24 10:48 10 MG Apixaban 5 mg BID PO 09/20/24 23:00 Metronidazole 100 ml @ 100 mls/hr Q8HR IV 09/14/24 22:00 09/18/24 13:56 100 MLS/HR Levofloxacin/ Dextrose 100 ml @ 100 mls/hr DAILY IV 09/16/24 10:00 09/18/24 10:47 100 MLS/HR Enteral Nutritional Formula 240 ml TIDWM PO 09/16/24 18:00 09/18/24 18:00 240 ML Nystatin 5 ml QID MT 09/17/24 18:00 09/18/24 19:05 5 ML Fluconazole 100 ml @ 100 mls/hr DAILY IV 09/18/24 10:00 09/18/24 09:12 100 MLS/HR Albuterol 2.5 mg Q4HWA [facility] 09/17/24 18:00 09/18/24 18:08 2.5 MG Ipratropium [place] 0.5 mg Q4HWA [facility] 09/17/24 18:00 09/18/24 18:08 0.5 MG objective Gen.: Patient lying in bed in no apparent distress. On supplemental oxygen. Head: Normocephalic, atraumatic. Eyes: EOMI/PERRLA. Ears: Normal hearing. Normal anatomy. Neck/trachea: Trachea midline, supple. Nose: Normal external anatomy. Mouth: Moist mucous membranes. Chest: Decreased air entry bilaterally. No wheezing or rhonchi. Cardiovascular: Positive S1, positive S2. Regular rate and rhythm. Abdomen: Positive bowel sounds in all 4 quadrants. Soft, non-tender, non- distended. : Deferred. Rectal: Deferred. Skin: Warm, dry. Intact. Extremities: 2+ radial pulses bilaterally. No lower extremity edema. Neuro: Awake, alert, oriented x3. No gross motor or sensory deficits. Cranial nerves II through XII intact. Gait not assessed. laboratory and microbiology Laboratory Tests 09/17/24 06:48 Test 09/17/24 06:48 Range/Units Serum Glucose 108 H 74-106 mg/dL Assessment/Plan Impression: Acute hypoxic respiratory failure Pneumonia COPD Emphysema , paraseptal and centrilobular Fibroid atelectatic opacities in the right middle lobe, lingula and bilateral lower lobes. Calcified pleural plaques in the right upper lobe and posterior aspects of the lower lobes bilaterally Pleural effusions, Atelectasis Hyponatremia Events: Remains on supplemental O2 at 2 LPM NC Taper O2 as tolerated Obtain CXR in AM to assess for interval changes CT chest reviewed, stable from prior. Incentive spirometry Continue bronchodilators/Mucomyst Continue antibiotics. Continue Eliquis for right lower extremity DVT. Lara d/t urinary retention. Pain control HERSON resolved after Lara placement - HERSON likely due to urine retention. IV fluids at 60 ml/hr. Head of bed elevation Aspiration precautions Labs and imaging reviewed. Rest of plan as noted below. Plan: Supplemental oxygen Keep O2 saturation above 92% CT chest report and images reviewed. Emphysematous changes. Fibro atelectatic opacity in the right middle lobe, lingula and bilateral lower lobes. Calcified plaques in the right upper and bilateral lower lobes and posteriorly. Minimal pleural effusions and atelectasis. Antibiotics Monitor WBC count. Blood cultures show no growth. Continue bronchodilators as needed. Pain control. Avoid over-sedation. Incentive spirometry. IV fluids at 60 mL an hour. Monitor renal function. Monitor electrolytes. Supplement as necessary. Hyponatremia - Monitor sodium DVT prophylaxis Prognosis: Guarded given multiple comorbidities. Rest of plan per hospitalist and other consultants. Thank you Dr. Reed for allowing me to participate in this patient's care. Further recommendations will depend on patient's clinical course. Please do not hesitate to contact me if you have any questions or concerns. This medical document was created using an electronic medical record system with [employer] system. Although this document has been carefully reviewed, there may still be some phonetic and typographical errors. These areas are purely typographical due to imperfections of the software programs, and do not reflect any compromise in the patient's medical care. Dietary Evaluation Review Comments: 1) Consider SORAIDA 1 pkt BID for wounds 2) Continue current plan of care Expected Outcomes/Goals: F/U in 3-5 days Plan discussed with: Patient, Other (JEANNINE Harvey) TORITO URBAN MD Sep 18, 2024 21:38
[2024-09-19] VITALS (22 sets, daily range): BP systolic 98–150; BP diastolic 45–72; PULSE 80–105; RESP 14–22; TEMP 98–100.3; O2SAT 92–100
[2024-09-19 06:41] LABS: Mean Corpuscular Hemoglobin 30.4 pg (28.0-32.0); Red Cell Distribution Width 14.2 % (11.8-14.3)
[2024-09-19 06:44] LABS: Hematocrit 32.2 % (41.0-53.0); Hemoglobin 10.8 g/dL (13.5-17.5); Mean Corpuscular Hgb Conc. 33.5 g/dL (32.0-36.0); Mean Corpuscular Volume 90.8 fL (80.0-100.0); Platelet Count (auto) 525 10^3/uL (140-450); Red Blood Cells 3.55 10^6/uL (4.5-5.90); White Blood Cell 25.5 10^3/uL (4.4-10.8)
[2024-09-19 06:45] LABS: Anion Gap 5 (5-15); Calcium 7.8 mg/dL (8.7-10.4); Carbon Dioxide 28 mmol/L (20-31); Chloride 96 mmol/L (98-107)
[2024-09-19 06:49] LABS: Sodium 129 mmol/L (136-145)
[2024-09-19 06:50] LABS: Basophils % (manual) 0 (0.0-2.0); Blast Cells 0; Eosinophils % (manual) 0 (0-7); Metamyelocytes % 0; Myelocytes % 0; Promyelocytes % 0; Reactive Lymphocytes 0
[2024-09-19 06:51] LABS: Glucose 80 mg/dL (74-106)
[2024-09-19 07:20] LABS: BUN/Creatinine Ratio 26.7 (10.0-20.0); Blood Urea Nitrogen 12 mg/dL (9-23)
[2024-09-19 07:25] LABS: Potassium 5.6 mmol/L (3.5-5.1)
[2024-09-19 07:58] LABS: Band Neutrophils % (manual) 2; Large Platelets FEW; Lymphocytes % (manual) 2 (10.0-50.0); Monocytes % (manual) 7 (0-12); Smudge Cells 2 /100 WBC
[2024-09-19 07:59] LABS: Giant Platelets Few; Platelet Estimate Increa; Stomatocytes Few
[2024-09-19] MEDS: SODIUM ZIRCONIUM CYCL 10 GM PAK PO ONE (08:19)
--- NOTE | 2024-09-19 08:47 | DVH ---
CHEST RADIOGRAPH Indication: Follow up Technique: Single frontal view of the chest was obtained Comparison: XY CHEST PORTABLE on DOS: 09/17/24, XY CHEST XRAY 1 VIEW on DOS: 09/12/24, XY CHEST MARCELLE BLE on DOS: 09/10/24, XY CHEST PORTABLE on DOS: 09/10/24 FINDINGS: Lines and Tubes: None Lungs: Stable masslike opacities throughout both lungs. Pleura: No effusion. No pneumothorax. Cardiomediastinal contours: Unremarkable Bones: No acute osseous abnormality. IMPRESSION: Stable masslike opacities throughout both lungs.
[2024-09-19] MEDS: FUROSEMIDE 20 MG/2 ML VIAL IV ONE (11:51)
[2024-09-19 12:35] LABS: INR 1.82 (0.9-1.15); Partial Thromboplastin Time 38.2 SEC (24.5-34.5); Prothrombin Time 18.5 sec (9.3-11.8)
--- NOTE | 2024-09-19 13:21 | DVHPN2 ---
Subjective Patient verbalizes that he feels better than yesterday. Reviewed: Care Plan, H&P, Labs Changes from previous H/P or p: Changes Eyes: No Pain, No Vision change, No Conjunctivae inflammation, No Eyelid inflammation, No Other, No Redness ENT: No Ear pain, No Ear discharge, No Nose pain, No Nose discharge, No Nose congestion, No Mouth pain, No Mouth swelling, No Throat pain, No Throat swelling, No Other Cardiovascular: No Chest Pain, No Palpitations, No Orthopnea, No Paroxysmal Noc. Dyspnea, No Edema, No Lt Headedness, No Other Respiratory: No Cough, No Dry; Shortness of breath, SOB with excertion; No Wheezing, No Hemoptysis, No Pleuritic Pain, No Sputum; Other (SOB at rest) Gastrointestinal: Nausea; No Vomiting, No Abdominal Pain, No Diarrhea; C onstipation; No Melena, No Hematochezia; Other (Poor appetite) Genitourinary: No Dysuria, No Frequency, No Incontinence, No Hematuria, No Retention, No Other Musculoskeletal: No other, No neck pain, No shoulder pain, No arm pain, No back pain, No hand pain, No leg pain, No foot pain Skin: No Rash, No Lesions, No Jaundice, No Bruising, No Other Objective Vitals Vital Signs Date Time Temp Pulse Resp B/P (MAP) Pulse Ox O2 Delivery O2 Flow Rate FiO2 09/19/24 12:01 100.3 09/19/24 11:51 117/53 09/19/24 10:45 93 16 100 09/19/24 08:26 2.0 28 09/19/24 07:26 Nasal Cannula Intake/Output Intake and Output 09/19/24 07:00 Intake Total 2920 ml Output Total 1300 ml Balance 1620 ml Intake Oral 1100 ml IV Total 1820 ml Output Urine Total 1300 ml General Appearance: Alert, Oriented X3, Cooperative, mild distress HEENT: Atraumatic, PERRLA Lungs: Clear to auscultation Cardiovascular: Normal S1, Normal S2 Abdomen: Normal bowel sounds Genitourinary: No Apparent Abnormalities Musculoskeletal: Normal sensory function, Normal motor function Neuro: Normal speech, Cranial nerves 3-12 NL Skin: Dry, Intact Psych/Mental Status: Mental status NL, Mood NL Medications Current Medications Medications Dose Ordered Sig/Cathy Route Start Time Stop Time Status Last Admin Dose Admin Albuterol 2.5 mg Q4HPRN PRN NEB 09/10/24 06:30 09/17/24 16:32 2.5 MG Ipratropium [place] 0.5 mg Q4HPRN PRN NEB 09/10/24 06:30 09/17/24 16:32 0.5 MG Vancomycin HCl 0 ml @ 0 mls/hr UD IV 09/10/24 06:30 Cancel Aspirin 81 mg DAILY PO 09/10/24 10:00 09/18/24 10:48 81 MG Ondansetron HCl 4 mg Q4HP PRN IV 09/10/24 06:30 Docusate Sodium 100 mg BIDPRN PRN PO 09/10/24 06:30 09/11/24 09:53 100 MG Acetaminophen 650 mg Q6HP PRN PO 09/10/24 06:30 09/19/24 12:01 650 MG Nitroglycerin 0.4 mg Q5MINP PRN SL 09/10/24 06:30 Hydralazine HCl 10 mg Q6HP PRN IV 09/10/24 07:15 09/15/24 16:56 10 MG Enoxaparin Sodium 70 mg Q12HR SC 09/13/24 22:00 UNV Apixaban 10 mg BID PO 09/13/24 23:00 09/20/24 22:59 09/18/24 22:58 10 MG Apixaban 5 mg BID PO 09/20/24 23:00 Metronidazole 100 ml @ 100 mls/hr Q8HR IV 09/14/24 22:00 09/19/24 05:29 100 MLS/HR Levofloxacin/ Dextrose 100 ml @ 100 mls/hr DAILY IV 09/16/24 10:00 09/19/24 11:50 100 MLS/HR Enteral Nutritional Formula 240 ml TIDWM PO 09/16/24 18:00 09/19/24 11:51 240 ML Nystatin 5 ml QID MT 09/17/24 18:00 09/19/24 11:51 5 ML Fluconazole 100 ml @ 100 mls/hr DAILY IV 09/18/24 10:00 09/19/24 09:12 100 MLS/HR Albuterol 2.5 mg Q4HWA NEB 09/17/24 18:00 09/19/24 10:37 2.5 MG Ipratropium [place] 0.5 mg Q4HWA NEB 09/17/24 18:00 09/19/24 10:37 0.5 MG Laboratory Results Laboratory Tests 09/19/24 05:55 Chemistry Test 09/19/24 05:55 Calcium Level 7.8 mg/dL (8.7-10.4) L Coagulation Test 09/19/24 12:01 Prothrombin Time 18.5 sec (9.3-11.8) H Prothrombin Time INR 1.82 (0.9-1.15) H Activated Partial Thromboplast Time 38.2 SEC (24.5-34.5) H Urinalysis Test 09/10/24 04:47 09/14/24 08:00 Urine Color Yellow (Yellow) Urine Clarity Clear (Clear) Urine pH 6.0 (5.0-9.0) Urine Specific [place] 1.031 (1.001-1.035) Urine Protein 1+ (Negative) H Urine Ketones Trace (Negative) Urine Blood Negative /uL (Negative) Urine Nitrite Negative (Negative) Urine Bilirubin Negative (Negative) Urine Urobilinogen 2 mg/dL (Negative) H Urine Leukocyte Esterase Negative /uL (Negative) Urine RBC 3 /hpf (0 - 3) Urine WBC 3 /hpf (0 - 3) Urine Squamous Epithelial Cells None seen /hpf (<5) Urine Bacteria None seen /hpf (None Seen) Urine Mucus Few (None Seen) Urine Glucose Normal mg/dL (Normal) Urine Osmolality 405 mOsm/kg Urine Creatinine 40.31 mg/dL (30.0-125.0) Urine Protein/Creatinine Ratio 0.54 Urine Sodium 24 mmol/L (40-220) L Urine Total Protein 21.7 mg/dL (1-14) H Microbiology Microbiology Date/Time Source Procedure Growth Status 09/16/24 20:50 Sputum Gram Stain - Final Resulted 09/16/24 20:50 Sputum Respiratory Culture - Preliminary Resulted 09/13/24 09:50 Nose MRSA Screen - Final Complete 09/10/24 01:18 Blood Blood Culture - Final NO GROWTH AFTER 5 DAYS OF INCUBATION. Complete Labs and/or images reviewed: Image(s) reviewed by me Assessment/Plan Assessment/Plan Plan: -sepsis -pneumonia -necrotizing lymph node -bullous emphysema -acute hypoxic respiratory failure -nicotine dependence -atelectasis -hyponatremia Plan: Events: Patient continues to have intermittent fevers. Leukocytosis improving. Subjectively, patient states he feels better. CT scan reviewed from yesterday which reveals persistent necrotic lymphadenopathy? IR consultation placed for possible biopsy. Aspirin and Eliquis will be held with possibility of performing biopsy this Thursday. Primary nurse also reports epistaxis this a.m. -ID consultation : Recommendations reviewed -pulmonary consultation : Recommendations review -continue current antibiotic therapy : Flagyl, Levaquin,nystatin swish and swallow as well as IV Diflucan -change to pureed diet with supplementation -bronchodilators -PUD, DVT prophylaxis -repeat labs and chest x-ray in a.m. Total time spent with patient discussing and formulating plan of care: 35 minutes. This medical document was created using an electronic medical record system with [employer] dictation system. Although this document has been carefully reviewed, there may still be some phonetic and typographical errors. These areas are purely typographical due to imperfections of the software programs, and do not reflect any compromise in the patient's medical care. Plan discussed with: Patient, Other (RN) My Orders Orders - KYUNG KENDRICK NP Procedure Category Date Status Time * Radiologist Consult CONS 09/19/24 Transmitted 10:57 Basic Metabolic Panel LAB 09/19/24 Logged 16:00 Date of Service: Sep 19, 2024 Billing Provider: KYUNG KENDRICK NP Common Visit Codes: [id number] INP/OBS CARE(HIGH) KYUNG KNEDRICK NP Sep 19, 2024 13:21
[2024-09-19 17:04] LABS: Chloride 96 mmol/L (98-107); Potassium 3.9 mmol/L (3.5-5.1); Sodium 131 mmol/L (136-145)
[2024-09-19 17:05] LABS: Anion Gap 3 (5-15); Calcium 7.8 mg/dL (8.7-10.4); Carbon Dioxide 32 mmol/L (20-31)
[2024-09-19 17:10] LABS: BUN/Creatinine Ratio 35.6 (10.0-20.0); Blood Urea Nitrogen 16 mg/dL (9-23); Glucose 115 mg/dL (74-106)
--- NOTE | 2024-09-19 23:20 | DVHPN2 ---
Progress Note - Dictate Date Seen: Sep 19, 2024 Medical Necessity Reason Pt with a Central, PICC or Fol: Yes The following are medically ne: Lara Catheter Reason for lara catheter: Strict I&O Subjective Patient seen and examined at bedside. Remains on supplemental oxygen Overnight events reviewed. vital signs Vital Sign Date Time Temp Pulse Resp B/P (MAP) Pulse Ox O2 Delivery O2 Flow Rate FiO2 09/19/24 22:44 94 16 100 09/19/24 22:38 Nasal Cannula 2.0 09/19/24 22:38 28 09/19/24 21:00 98.0 100/45 (63) 98.0 Total Intake and Output 09/18/24 09/18/24 09/19/24 15:00 23:00 07:00 Intake Total 300 ml 2120 ml 500 ml Output Total 500 ml 800 ml Balance 300 ml 1620 ml -300 ml medications Current Medications Medications Dose Ordered Sig/Cathy Route Start Time Stop Time Status Last Admin Dose Admin Albuterol 2.5 mg Q4HPRN PRN NEB 09/10/24 06:30 09/17/24 16:32 2.5 MG Ipratropium [place] 0.5 mg Q4HPRN PRN NEB 09/10/24 06:30 09/17/24 16:32 0.5 MG Vancomycin HCl 0 ml @ 0 mls/hr UD IV 09/10/24 06:30 Cancel Ondansetron HCl 4 mg Q4HP PRN IV 09/10/24 06:30 Docusate Sodium 100 mg BIDPRN PRN PO 09/10/24 06:30 09/11/24 09:53 100 MG Acetaminophen 650 mg Q6HP PRN PO 09/10/24 06:30 09/19/24 12:01 650 MG Nitroglycerin 0.4 mg Q5MINP PRN SL 09/10/24 06:30 Hydralazine HCl 10 mg Q6HP PRN IV 09/10/24 07:15 09/15/24 16:56 10 MG Enoxaparin Sodium 70 mg Q12HR SC 09/13/24 22:00 UNV Metronidazole 100 ml @ 100 mls/hr Q8HR IV 09/14/24 22:00 09/19/24 14:17 100 MLS/HR Levofloxacin/ Dextrose 100 ml @ 100 mls/hr DAILY IV 09/16/24 10:00 09/19/24 11:50 100 MLS/HR Enteral Nutritional Formula 240 ml TIDWM PO 09/16/24 18:00 09/19/24 18:00 240 ML Nystatin 5 ml QID MT 09/17/24 18:00 09/19/24 18:23 5 ML Fluconazole 100 ml @ 100 mls/hr DAILY IV 09/18/24 10:00 09/19/24 09:12 100 MLS/HR Albuterol 2.5 mg Q4HWA NEB 09/17/24 18:00 09/19/24 22:38 2.5 MG Ipratropium [place] 0.5 mg Q4HWA NEB 09/17/24 18:00 09/19/24 22:38 0.5 MG objective Gen.: Patient lying in bed in no apparent distress. On supplemental oxygen. Head: Normocephalic, atraumatic. Eyes: EOMI/PERRLA. Ears: Normal hearing. Normal anatomy. Neck/trachea: Trachea midline, supple. Nose: Normal external anatomy. Mouth: Moist mucous membranes. Chest: Decreased air entry bilaterally. No wheezing or rhonchi. Positive crackles. Cardiovascular: Positive S1, positive S2. Regular rate and rhythm. Abdomen: Positive bowel sounds in all 4 quadrants. Soft, non-tender, non- distended. : Deferred. Rectal: Deferred. Skin: Warm, dry. Intact. Extremities: 2+ radial pulses bilaterally. No lower extremity edema. Neuro: Awake, alert, oriented x3. No gross motor or sensory deficits. Cranial nerves II through XII intact. Gait not assessed. laboratory and microbiology Laboratory Tests 09/19/24 16:32 09/19/24 05:55 Test 09/19/24 16:32 Range/Units Serum Glucose 115 H 74-106 mg/dL Assessment/Plan Impression: Acute hypoxic respiratory failure Pneumonia COPD Emphysema , paraseptal and centrilobular Fibroid atelectatic opacities in the right middle lobe, lingula and bilateral lower lobes. Calcified pleural plaques in the right upper lobe and posterior aspects of the lower lobes bilaterally Pleural effusions, Atelectasis Hyponatremia Events: Remains on supplemental O2 at 2 LPM NC Taper O2 as tolerated CXR demonstrates stable masslike opacities throughout both lungs; no pleural effusion or pneumothorax. Pain control Avoid oversedation Head of bed elevation Aspiration precautions Congestion/crackles on exam. Diurese to euvolemia Monitor renal function. Incentive spirometry Continue bronchodilators Continue antibiotics. Lara d/t urinary retention. HERSON resolved after Lara placement - HERSON likely due to urine retention. IV fluids at 60 ml/hr. Labs and imaging reviewed. Rest of plan as noted below. Plan: Supplemental oxygen Keep O2 saturation above 92% CT chest report and images reviewed. Emphysematous changes. Fibro atelectatic opacity in the right middle lobe, lingula and bilateral lower lobes. Calcified plaques in the right upper and bilateral lower lobes and posteriorly. Minimal pleural effusions and atelectasis. Antibiotics Monitor WBC count. Blood cultures show no growth. Continue bronchodilators as needed. Pain control. Avoid over-sedation. Incentive spirometry. IV fluids at 60 mL an hour. Monitor renal function. Monitor electrolytes. Supplement as necessary. Hyponatremia - Monitor sodium DVT prophylaxis Prognosis: Guarded given multiple comorbidities. Rest of plan per hospitalist and other consultants. Thank you Dr. Reed for allowing me to participate in this patient's care. Further recommendations will depend on patient's clinical course. Please do not hesitate to contact me if you have any questions or concerns. This medical document was created using an electronic medical record system with [employer] dictation system. Although this document has been carefully reviewed, there may still be some phonetic and typographical errors. These areas are purely typographical due to imperfections of the software programs, and do not reflect any compromise in the patient's medical care. Dietary Evaluation Review Comments: 1) Consider SORAIDA 1 pkt BID for wounds 2) Continue current plan of care Expected Outcomes/Goals: F/U in 3-5 days Plan discussed with: Patient, Other (RN) TORITO URBAN MD Sep 19, 2024 23:20
[2024-09-20] VITALS (23 sets, daily range): BP systolic 105–131; BP diastolic 50–86; PULSE 82–102; RESP 16–22; TEMP 97.3–98.8; O2SAT 93–100
[2024-09-20 05:59] LABS: Basophils # (auto) 0 10 ^3/uL (0-0.2); Basophils % (auto) 0.1 % (0.0-2.0); Eosinophils # (auto) 0.1 10 ^3/uL (0-0.8); Eosinophils % (auto) 0.7 % (0.0-7.0); Hemoglobin 9.4 g/dL (13.5-17.5); Lymphocytes # (auto) 0.4 10 ^3/uL (0.4-5.4); Lymphocytes % (auto) 2.1 % (10.0-50.0); Mean Corpuscular Hemoglobin 30.3 pg (28.0-32.0); Mean Corpuscular Hgb Conc. 33.4 g/dL (32.0-36.0); Mean Corpuscular Volume 90.5 fL (80.0-100.0); Monocytes # (auto) 0.7 10 ^3/uL (0-1.3); Neutrophils # (auto) 17.2 10 ^3/uL (1.6-8.6); Neutrophils % (auto) 93.1 % (37.0-80.0); Platelet Count (auto) 487 10^3/uL (140-450); Red Blood Cells 3.09 10^6/uL (4.5-5.90); Red Cell Distribution Width 14.5 % (11.8-14.3); White Blood Cell 18.4 10^3/uL (4.4-10.8)
--- NOTE | 2024-09-20 11:46 | DVHPN2 ---
Subjective Patient verbalizes that he feels better than yesterday. Reviewed: Care Plan, H&P, Labs Changes from previous H/P or p: No Changes Eyes: No Pain, No Vision change, No Conjunctivae inflammation, No Eyelid inflammation, No Other, No Redness ENT: No Ear pain, No Ear discharge, No Nose pain, No Nose discharge, No Nose congestion, No Mouth pain, No Mouth swelling, No Throat pain, No Throat swelling, No Other Cardiovascular: No Chest Pain, No Palpitations, No Orthopnea, No Paroxysmal Noc. Dyspnea, No Edema, No Lt Headedness, No Other Respiratory: No Cough, No Dry; Shortness of breath, SOB with excertion; No Wheezing, No Hemoptysis, No Pleuritic Pain, No Sputum; Other (SOB at rest) Gastrointestinal: Nausea; No Vomiting, No Abdominal Pain, No Diarrhea; C onstipation; No Melena, No Hematochezia; Other (Poor appetite) Genitourinary: No Dysuria, No Frequency, No Incontinence, No Hematuria, No Retention, No Other Musculoskeletal: No other, No neck pain, No shoulder pain, No arm pain, No back pain, No hand pain, No leg pain, No foot pain Skin: No Rash, No Lesions, No Jaundice, No Bruising, No Other Objective Vitals Vital Signs Date Time Temp Pulse Resp B/P (MAP) Pulse Ox O2 Delivery O2 Flow Rate FiO2 09/20/24 09:23 92 18 99 09/20/24 09:15 Nasal Cannula* 3 32 09/20/24 05:00 98.3 130/61 (84) 98.3 Intake/Output Intake and Output 09/20/24 07:00 Intake Total 1520 ml Output Total 2400 ml Balance -880 ml Intake Oral 880 ml IV Total 640 ml Output Urine Total 2400 ml General Appearance: Alert, Oriented X3, Cooperative, mild distress HEENT: Atraumatic, PERRLA Lungs: Clear to auscultation Cardiovascular: Normal S1, Normal S2 Abdomen: Normal bowel sounds Genitourinary: No Apparent Abnormalities Musculoskeletal: Normal sensory function, Normal motor function Neuro: Normal speech, Cranial nerves 3-12 NL Skin: Dry, Intact Psych/Mental Status: Mental status NL, Mood NL Medications Current Medications Medications Dose Ordered Sig/Cathy Route Start Time Stop Time Status Last Admin Dose Admin Albuterol 2.5 mg Q4HPRN PRN NEB 09/10/24 06:30 09/17/24 16:32 2.5 MG Ipratropium [place] 0.5 mg Q4HPRN PRN NEB 09/10/24 06:30 09/17/24 16:32 0.5 MG Vancomycin HCl 0 ml @ 0 mls/hr UD IV 09/10/24 06:30 Cancel Ondansetron HCl 4 mg Q4HP PRN IV 09/10/24 06:30 Docusate Sodium 100 mg BIDPRN PRN PO 09/10/24 06:30 09/11/24 09:53 100 MG Acetaminophen 650 mg Q6HP PRN PO 09/10/24 06:30 09/19/24 12:01 650 MG Nitroglycerin 0.4 mg Q5MINP PRN SL 09/10/24 06:30 Hydralazine HCl 10 mg Q6HP PRN IV 09/10/24 07:15 09/15/24 16:56 10 MG Enoxaparin Sodium 70 mg Q12HR SC 09/13/24 22:00 UNV Metronidazole 100 ml @ 100 mls/hr Q8HR IV 09/14/24 22:00 09/20/24 05:33 100 MLS/HR Levofloxacin/ Dextrose 100 ml @ 100 mls/hr DAILY IV 09/16/24 10:00 09/19/24 11:50 100 MLS/HR Enteral Nutritional Formula 240 ml TIDWM PO 09/16/24 18:00 09/20/24 08:00 240 ML Nystatin 5 ml QID MT 09/17/24 18:00 09/20/24 05:33 5 ML Fluconazole 100 ml @ 100 mls/hr DAILY IV 09/18/24 10:00 09/20/24 10:01 100 MLS/HR Albuterol 2.5 mg Q4HWA NEB 09/17/24 18:00 09/20/24 06:19 2.5 MG Ipratropium [place] 0.5 mg Q4HWA NEB 09/17/24 18:00 09/20/24 06:19 0.5 MG Laboratory Results Laboratory Tests 09/19/24 16:32 09/20/24 05:16 Chemistry Test 09/19/24 16:32 Calcium Level 7.8 mg/dL (8.7-10.4) L Coagulation Test 09/19/24 12:01 Prothrombin Time 18.5 sec (9.3-11.8) H Prothrombin Time INR 1.82 (0.9-1.15) H Activated Partial Thromboplast Time 38.2 SEC (24.5-34.5) H Urinalysis Test 09/10/24 04:47 09/14/24 08:00 Urine Color Yellow (Yellow) Urine Clarity Clear (Clear) Urine pH 6.0 (5.0-9.0) Urine Specific [place] 1.031 (1.001-1.035) Urine Protein 1+ (Negative) H Urine Ketones Trace (Negative) Urine Blood Negative /uL (Negative) Urine Nitrite Negative (Negative) Urine Bilirubin Negative (Negative) Urine Urobilinogen 2 mg/dL (Negative) H Urine Leukocyte Esterase Negative /uL (Negative) Urine RBC 3 /hpf (0 - 3) Urine WBC 3 /hpf (0 - 3) Urine Squamous Epithelial Cells None seen /hpf (<5) Urine Bacteria None seen /hpf (None Seen) Urine Mucus Few (None Seen) Urine Glucose Normal mg/dL (Normal) Urine Osmolality 405 mOsm/kg Urine Creatinine 40.31 mg/dL (30.0-125.0) Urine Protein/Creatinine Ratio 0.54 Urine Sodium 24 mmol/L (40-220) L Urine Total Protein 21.7 mg/dL (1-14) H Microbiology Microbiology Date/Time Source Procedure Growth Status 09/18/24 14:50 Blood Blood Culture - Preliminary NO GROWTH AFTER 24 HOURS OF INCUBATION. Resulted 09/16/24 20:50 Sputum Gram Stain - Final Resulted 09/16/24 20:50 Sputum Respiratory Culture - Preliminary Resulted 09/13/24 09:50 Nose MRSA Screen - Final Complete Labs and/or images reviewed: Labs reviewed by me, Image(s) reviewed by me Assessment/Plan Assessment/Plan Plan: -sepsis -pneumonia -necrotizing lymph node -bullous emphysema -acute hypoxic respiratory failure -nicotine dependence -atelectasis -hyponatremia Plan: Events: Improvement with WBC. Afebrile. Decreased Swelling. -ID consultation : Recommendations reviewed -pulmonary consultation : Recommendations review -continue current antibiotic therapy : Flagyl, Levaquin,nystatin swish and swallow as well as IV Diflucan -change to pureed diet with supplementation -bronchodilators -PUD, DVT prophylaxis -repeat labs and chest x-ray in a.m. Total time spent with patient discussing and formulating plan of care: 35 minutes. This medical document was created using an electronic medical record system with [employer] dictation system. Although this document has been carefully reviewed, there may still be some phonetic and typographical errors. These areas are purely typographical due to imperfections of the software programs, and do not reflect any compromise in the patient's medical care. Plan discussed with: Patient, Other (RN) My Orders Orders - KYUNG KENDRICK NP Procedure Category Date Status Time Furosemide Injection PHA 09/20/24 Logged (Lasix Injection) 11:45 Complete Blood Count LAB 09/21/24 Verified 04:00 Basic Metabolic Panel LAB 09/21/24 Verified 04:00 Date of Service: Sep 20, 2024 Billing Provider: KYUNG KENDRICK NP Common Visit Codes: [id number] INP/OBS CARE(HIGH) KYUNG KENDRICK NP Sep 20, 2024 11:46
[2024-09-20] MEDS: FUROSEMIDE 20 MG/2 ML VIAL IV ONE (12:03)
--- NOTE | 2024-09-20 13:58 | DVHPN2 ---
Consult Progress Note Date Seen: Sep 18, 2024 Subjective Patient reports: Feels better (no fever or chills) Objective vital signs Vital Sign Date Time Temp Pulse Resp B/P (MAP) Pulse Ox O2 Delivery O2 Flow Rate FiO2 09/20/24 13:22 97 18 100 09/20/24 13:18 Nasal Cannula* 3 32 09/20/24 12:03 121/53 09/20/24 05:00 98.3 98.3 Total Intake and Output 09/19/24 09/19/24 09/20/24 15:00 23:00 07:00 Intake Total 540 ml 600 ml 380 ml Output Total 1500 ml 900 ml Balance 540 ml -900 ml -520 ml medications Current Medications Medications Dose Ordered Sig/Cathy Route Start Time Stop Time Status Last Admin Dose Admin Albuterol 2.5 mg Q4HPRN PRN NEB 09/10/24 06:30 09/17/24 16:32 2.5 MG Ipratropium [place] 0.5 mg Q4HPRN PRN NEB 09/10/24 06:30 09/17/24 16:32 0.5 MG Vancomycin HCl 0 ml @ 0 mls/hr UD IV 09/10/24 06:30 Cancel Ondansetron HCl 4 mg Q4HP PRN IV 09/10/24 06:30 Docusate Sodium 100 mg BIDPRN PRN PO 09/10/24 06:30 09/11/24 09:53 100 MG Acetaminophen 650 mg Q6HP PRN PO 09/10/24 06:30 09/19/24 12:01 650 MG Nitroglycerin 0.4 mg Q5MINP PRN SL 09/10/24 06:30 Hydralazine HCl 10 mg Q6HP PRN IV 09/10/24 07:15 09/15/24 16:56 10 MG Enoxaparin Sodium 70 mg Q12HR SC 09/13/24 22:00 UNV Metronidazole 100 ml @ 100 mls/hr Q8HR IV 09/14/24 22:00 09/20/24 05:33 100 MLS/HR Levofloxacin/ Dextrose 100 ml @ 100 mls/hr DAILY IV 09/16/24 10:00 09/20/24 12:01 100 MLS/HR Enteral Nutritional Formula 240 ml TIDWM PO 09/16/24 18:00 09/20/24 08:00 240 ML Nystatin 5 ml QID MT 09/17/24 18:00 09/20/24 12:01 5 ML Fluconazole 100 ml @ 100 mls/hr DAILY IV 09/18/24 10:00 09/20/24 10:01 100 MLS/HR Albuterol 2.5 mg Q4HWA [facility] 09/17/24 18:00 09/20/24 13:14 2.5 MG Ipratropium [place] 0.5 mg Q4HWA [facility] 09/17/24 18:00 09/20/24 13:14 0.5 MG PHYSICAL EXAM: - GENERAL: Alert and oriented x 3. No acute distress. Well-nourished. - EYES: EOMI. Anicteric. - HENT: Moist mucous membranes. No scleral icterus. No cervical lymphadenopathy. - LUNGS: Clear to auscultation bilaterally. No accessory muscle use. - CARDIOVASCULAR: Regular rate and rhythm. No murmur. No JVD. - ABDOMEN: Soft, non-tender and non-distended. No palpable masses. - EXTREMITIES: No edema. Non-tender.?SKIN: No rashes or lesions. Warm. - NEUROLOGIC: No focal neurological deficits. CN II-XII grossly intact, but not individually tested. - PSYCHIATRIC: Cooperative. Appropriate mood and affect. laboratory and microbiology Laboratory Tests 09/20/24 05:16 09/19/24 16:32 Test 09/19/24 16:32 Range/Units Serum Glucose 115 H 74-106 mg/dL Problem List/Assessment/Plan Problem List/Assessment/Plan ID Problem List: -- Generalized weakness -- Fall with head injury -- Multifocal pneumonia -- Leukocytosis -- COPD exacerbation -- Hyponatremia -- Stage 2 sacral ulcers -- Tobacco use disorder Assessment This is a 79 y.o. male with a past medical history of asthma, COPD, and depression, who presents with generalized weakness and a fall resulting in a forehead abrasion. He has been experiencing loss of appetite, no bowel movements, and shortness of breath. Laboratory findings show leukocytosis with a WBC count of 35.6??10?/L, thrombocytosis with platelets at 539??10?/L, hyponatremia with sodium at 120?mmol/L, BUN of 22?mg/dL, creatinine of 0.6?mg/dL, glucose of 102?mg/dL, lactic acid of 1.5?mmol/L, and hemoglobin of 13.7?g/dL. CT head showed no acute abnormality. Chest CT revealed thyromegaly and extensive alveolar and parenchymal infiltrates in both lungs, seen in the right middle lobe, lingula, and both lower lobes. He was started empirically on vancomycin and ceftriaxone; azithromycin was later added. The patient has stage 2 sacral ulcers, non-purulent and non-eroded. 09/13: On imaging his doppler lower extemity ultrasound shows a nonocclusive thrombo scene in the proximal left superficial fomoral vein. CT of lungs which showed no pulmonary embolism. diffuse abnormal tissue density in posterior media steinum extened from the upper thorax to diaphragmatic hiatus with small air bubbles thats increased in size compared to last exam, which could represent nectrotic adenopathy abscess or esophageal injury or rupture. component on the left at the diaphragmatic hiatus is recommended , smoking related lung disease , patchy eclecticism consolidation. 09/14: white count remains elevated at 33. Dr choi from oncology saw patinet and suggent proliferative disorder is a possiblility but will asses after antibiotics, as well as consider a biopsy after a few weeks. MRSA nares came negative. 09/15: white count is slowing coming down and a backorder of levofloxacin 09/16: white count is slowly downtrending now at 28, 2 liters nasal canula 09/17: Patient was able to produce and induced sputum sample and so far results are with no growth Plan: -- continue 500 milligrans IV of levofloxacin -- will fu on sputum culture -- patient started on eliquis for DVT for 3 months -- another 2 weeks of antibiotic use for presumed pneumonia -- patient should follow up with infectious disease for chest Ct to see if necrotic lymph node resolved -- outpatient follow up with hematology and oncology -- defer plans of any CT biopsy of the diaphram hiatus to pulmonology if its accordance to patients goals of care -- Implement wound care for stage 2 sacral ulcers. -- Monitor vital signs and oxygen saturation. Isolation Precautions: Standard Plan discussed with: Patient Dietary Evaluation Review Comments: 1) Consider SORAIDA 1 pkt BID for wounds 2) Continue current plan of care Expected Outcomes/Goals: F/U in 3-5 days SHELBY OQUENDO MD Sep 20, 2024 13:58
--- NOTE | 2024-09-20 20:51 | DVHPN2 ---
Progress Note - Dictate Date Seen: Sep 20, 2024 Medical Necessity Reason Pt with a Central, PICC or Fol: Yes The following are medically ne: Lara Catheter Reason for lara catheter: Strict I&O Subjective Patient seen and examined at bedside. Remains on supplemental oxygen Overnight events reviewed. vital signs Vital Sign Date Time Temp Pulse Resp B/P (MAP) Pulse Ox O2 Delivery O2 Flow Rate FiO2 09/20/24 19:18 84 18 100 09/20/24 17:00 98.0 105/54 (71) 98.0 09/20/24 13:18 Nasal Cannula* 3 32 Total Intake and Output 09/19/24 09/19/24 09/20/24 15:00 23:00 07:00 Intake Total 540 ml 600 ml 380 ml Output Total 1500 ml 900 ml Balance 540 ml -900 ml -520 ml medications Current Medications Medications Dose Ordered Sig/Cathy Route Start Time Stop Time Status Last Admin Dose Admin Albuterol 2.5 mg Q4HPRN PRN NEB 09/10/24 06:30 09/17/24 16:32 2.5 MG Ipratropium [place] 0.5 mg Q4HPRN PRN NEB 09/10/24 06:30 09/17/24 16:32 0.5 MG Vancomycin HCl 0 ml @ 0 mls/hr UD IV 09/10/24 06:30 Cancel Ondansetron HCl 4 mg Q4HP PRN IV 09/10/24 06:30 Docusate Sodium 100 mg BIDPRN PRN PO 09/10/24 06:30 09/11/24 09:53 100 MG Acetaminophen 650 mg Q6HP PRN PO 09/10/24 06:30 09/20/24 14:19 650 MG Nitroglycerin 0.4 mg Q5MINP PRN SL 09/10/24 06:30 Hydralazine HCl 10 mg Q6HP PRN IV 09/10/24 07:15 09/15/24 16:56 10 MG Enoxaparin Sodium 70 mg Q12HR SC 09/13/24 22:00 UNV Metronidazole 100 ml @ 100 mls/hr Q8HR IV 09/14/24 22:00 09/20/24 14:19 100 MLS/HR Levofloxacin/ Dextrose 100 ml @ 100 mls/hr DAILY IV 09/16/24 10:00 09/20/24 12:01 100 MLS/HR Enteral Nutritional Formula 240 ml TIDWM PO 09/16/24 18:00 09/20/24 18:11 240 ML Nystatin 5 ml QID MT 09/17/24 18:00 09/20/24 18:11 5 ML Fluconazole 100 ml @ 100 mls/hr DAILY IV 09/18/24 10:00 09/20/24 10:01 100 MLS/HR Albuterol 2.5 mg Q4HWA NEB 09/17/24 18:00 09/20/24 19:13 2.5 MG Ipratropium [place] 0.5 mg Q4HWA NEB 09/17/24 18:00 09/20/24 19:14 0.5 MG Melatonin 10 mg QHSP PRN PO 09/20/24 15:15 objective Gen.: Patient lying in bed in no apparent distress. On supplemental oxygen. Head: Normocephalic, atraumatic. Eyes: EOMI/PERRLA. Ears: Normal hearing. Normal anatomy. Neck/trachea: Trachea midline, supple. Nose: Normal external anatomy. Mouth: Moist mucous membranes. Chest: Decreased air entry bilaterally. No wheezing or rhonchi. Positive crackles. Cardiovascular: Positive S1, positive S2. Regular rate and rhythm. Abdomen: Positive bowel sounds in all 4 quadrants. Soft, non-tender, non- distended. : Deferred. Rectal: Deferred. Skin: Warm, dry. Intact. Extremities: 2+ radial pulses bilaterally. No lower extremity edema. Neuro: Awake, alert, oriented x3. No gross motor or sensory deficits. Cranial nerves II through XII intact. Gait not assessed. laboratory and microbiology Laboratory Tests 09/20/24 05:16 09/19/24 16:32 Test 09/19/24 16:32 Range/Units Serum Glucose 115 H 74-106 mg/dL Assessment/Plan Impression: Acute hypoxic respiratory failure Pneumonia COPD Emphysema , paraseptal and centrilobular Fibroid atelectatic opacities in the right middle lobe, lingula and bilateral lower lobes. Calcified pleural plaques in the right upper lobe and posterior aspects of the lower lobes bilaterally Pleural effusions, Atelectasis Hyponatremia Events: Remains on supplemental O2 at 3 LPM NC Taper O2 as tolerated Patient is s/p biopsy of lymph node by IR. Incentive spirometry Continue bronchodilators Continue antibiotics/antifungal. ID recs appreciated. Pain control Avoid oversedation Head of bed elevation Aspiration precautions Continue diuresis Monitor renal function. Monitor ins and outs Improved edema. Lara d/t urinary retention. HERSON resolved after Lara placement - HERSON likely due to urine retention. IV fluids at 60 ml/hr. Labs and imaging reviewed. Rest of plan as noted below. Plan: Supplemental oxygen Keep O2 saturation above 92% CT chest report and images reviewed. Emphysematous changes. Fibro atelectatic opacity in the right middle lobe, lingula and bilateral lower lobes. Calcified plaques in the right upper and bilateral lower lobes and posteriorly. Minimal pleural effusions and atelectasis. Antibiotics Monitor WBC count. Blood cultures show no growth. Continue bronchodilators as needed. Pain control. Avoid over-sedation. Incentive spirometry. IV fluids at 60 mL an hour. Monitor renal function. Monitor electrolytes. Supplement as necessary. Hyponatremia - Monitor sodium DVT prophylaxis Prognosis: Guarded given multiple comorbidities. Rest of plan per hospitalist and other consultants. Thank you Dr. Reed for allowing me to participate in this patient's care. Further recommendations will depend on patient's clinical course. Please do not hesitate to contact me if you have any questions or concerns. This medical document was created using an electronic medical record system with [employer] dictation system. Although this document has been carefully reviewed, there may still be some phonetic and typographical errors. These areas are purely typographical due to imperfections of the software programs, and do not reflect any compromise in the patient's medical care. Dietary Evaluation Review Comments: 1) Consider SORAIDA 1 pkt BID for wounds 2) Continue current plan of care Expected Outcomes/Goals: F/U in 3-5 days Plan discussed with: Patient, Other (JEANNINE Schreiber) TORITO URBAN MD Sep 20, 2024 20:51
--- NOTE | 2024-09-20 21:28 | DVHPN2 ---
Consult Progress Note Date Seen: Sep 20, 2024 Subjective Patient reports: Feels better (having less pain thanusual but still persistent as well as weakness, white count has come down a bit ) Objective vital signs Vital Sign Date Time Temp Pulse Resp B/P (MAP) Pulse Ox O2 Delivery O2 Flow Rate FiO2 09/20/24 19:18 84 18 100 09/20/24 17:00 98.0 105/54 (71) 98.0 09/20/24 13:18 Nasal Cannula* 3 32 Total Intake and Output 09/19/24 09/19/24 09/20/24 15:00 23:00 07:00 Intake Total 540 ml 600 ml 380 ml Output Total 1500 ml 900 ml Balance 540 ml -900 ml -520 ml medications Current Medications Medications Dose Ordered Sig/Cathy Route Start Time Stop Time Status Last Admin Dose Admin Albuterol 2.5 mg Q4HPRN PRN NEB 09/10/24 06:30 09/17/24 16:32 2.5 MG Ipratropium [place] 0.5 mg Q4HPRN PRN NEB 09/10/24 06:30 09/17/24 16:32 0.5 MG Vancomycin HCl 0 ml @ 0 mls/hr UD IV 09/10/24 06:30 Cancel Ondansetron HCl 4 mg Q4HP PRN IV 09/10/24 06:30 Docusate Sodium 100 mg BIDPRN PRN PO 09/10/24 06:30 09/11/24 09:53 100 MG Acetaminophen 650 mg Q6HP PRN PO 09/10/24 06:30 09/20/24 14:19 650 MG Nitroglycerin 0.4 mg Q5MINP PRN SL 09/10/24 06:30 Hydralazine HCl 10 mg Q6HP PRN IV 09/10/24 07:15 09/15/24 16:56 10 MG Enoxaparin Sodium 70 mg Q12HR SC 09/13/24 22:00 UNV Metronidazole 100 ml @ 100 mls/hr Q8HR IV 09/14/24 22:00 09/20/24 14:19 100 MLS/HR Levofloxacin/ Dextrose 100 ml @ 100 mls/hr DAILY IV 09/16/24 10:00 09/20/24 12:01 100 MLS/HR Enteral Nutritional Formula 240 ml TIDWM PO 09/16/24 18:00 09/20/24 18:11 240 ML Nystatin 5 ml QID MT 09/17/24 18:00 09/20/24 18:11 5 ML Fluconazole 100 ml @ 100 mls/hr DAILY IV 09/18/24 10:00 09/20/24 10:01 100 MLS/HR Albuterol 2.5 mg Q4HWA NEB 09/17/24 18:00 09/20/24 19:13 2.5 MG Ipratropium [place] 0.5 mg Q4HWA NEB 09/17/24 18:00 09/20/24 19:14 0.5 MG Melatonin 10 mg QHSP PRN PO 09/20/24 15:15 PHYSICAL EXAM: - GENERAL: Alert and oriented x 3. No acute distress. Well-nourished. - EYES: EOMI. Anicteric. - HENT: Moist mucous membranes. No scleral icterus. No cervical lymphadenopathy. - LUNGS: Clear to auscultation bilaterally. No accessory muscle use. - CARDIOVASCULAR: Regular rate and rhythm. No murmur. No JVD. - ABDOMEN: Soft, non-tender and non-distended. No palpable masses. - EXTREMITIES: No edema. Non-tender.?SKIN: No rashes or lesions. Warm. - NEUROLOGIC: No focal neurological deficits. CN II-XII grossly intact, but not individually tested. - PSYCHIATRIC: Cooperative. Appropriate mood and affect. laboratory and microbiology Laboratory Tests 09/20/24 05:16 09/19/24 16:32 Test 09/19/24 16:32 Range/Units Serum Glucose 115 H 74-106 mg/dL Problem List/Assessment/Plan Problems(with codes): (1) ASTHMA, CHRONIC OBSTRUCTIVE W ASTHMATICUS (2) SHORTNESS OF BREATH (3) COPD (chronic obstructive pulmonary disease) (4) Pneumonia (5) Status asthmaticus (6) Leukocytosis, unspecified (7) Hypertension (8) Hyponatremia (9) Multifocal pneumonia (10) Generalized weakness Problem List/Assessment/Plan ID Problem List: -- Generalized weakness -- Fall with head injury -- Multifocal pneumonia -- Leukocytosis -- COPD exacerbation -- Hyponatremia -- Stage 2 sacral ulcers -- Tobacco use disorder Assessment This is a 79 y.o. male with a past medical history of asthma, COPD, and depression, who presents with generalized weakness and a fall resulting in a forehead abrasion. He has been experiencing loss of appetite, no bowel movements, and shortness of breath. Laboratory findings show leukocytosis with a WBC count of 35.6??10?/L, thrombocytosis with platelets at 539??10?/L, hyponatremia with sodium at 120?mmol/L, BUN of 22?mg/dL, creatinine of 0.6?mg/dL, glucose of 102?mg/dL, lactic acid of 1.5?mmol/L, and hemoglobin of 13.7?g/dL. CT head showed no acute abnormality. Chest CT revealed thyromegaly and extensive alveolar and parenchymal infiltrates in both lungs, seen in the right middle lobe, lingula, and both lower lobes. He was started empirically on vancomycin and ceftriaxone; azithromycin was later added. The patient has stage 2 sacral ulcers, non-purulent and non-eroded. 09/13: On imaging his doppler lower extemity ultrasound shows a nonocclusive thrombo scene in the proximal left superficial fomoral vein. CT of lungs which showed no pulmonary embolism. diffuse abnormal tissue density in posterior media steinum extened from the upper thorax to diaphragmatic hiatus with small air bubbles thats increased in size compared to last exam, which could represent nectrotic adenopathy abscess or esophageal injury or rupture. component on the left at the diaphragmatic hiatus is recommended , smoking related lung disease , patchy eclecticism consolidation. 09/14: white count remains elevated at 33. Dr choi from oncology saw patinet and suggent proliferative disorder is a possiblility but will asses after antibiotics, as well as consider a biopsy after a few weeks. MRSA nares came negative. 09/15: white count is slowing coming down and a backorder of levofloxacin 09/16: white count is slowly downtrending now at 28, 2 liters nasal canula 09/17: Patient was able to produce and induced sputum sample and so far results are with no growth Plan: -- patient would get a biopsy of lymph nodes tomorrow and will follow up on results - If whitecount continues to downtread recommend discharging patient on 2 weeks of levofloxacin and following up outpatient -- continue 500 milligrans IV of levofloxacin -- will fu on sputum culture -- patient started on eliquis for DVT for 3 months -- another 2 weeks of antibiotic use for presumed pneumonia -- patient should follow up with infectious disease for chest Ct to see if necrotic lymph node resolved -- outpatient follow up with hematology and oncology -- defer plans of any CT biopsy of the diaphram hiatus to pulmonology if its accordance to patients goals of care -- Implement wound care for stage 2 sacral ulcers. -- Monitor vital signs and oxygen saturation. Isolation Precautions: Standard Plan discussed with: Other Dietary Evaluation Review Comments: 1) Consider SORAIDA 1 pkt BID for wounds 2) Continue current plan of care Expected Outcomes/Goals: F/U in 3-5 days SHELBY OQUENDO MD Sep 20, 2024 21:28
[2024-09-20] MEDS: MELATONIN 5 MG TAB PO PRN (21:40)
[2024-09-20] MEDS ORDERED: APIXABAN 5 MG TAB PO SCH (23:00)
[2024-09-21] VITALS (19 sets, daily range): BP systolic 115–150; BP diastolic 55–73; PULSE 75–101; RESP 17–19; TEMP 97–99.5; O2SAT 92–100
[2024-09-21 07:13] LABS: Basophils # (auto) 0 10 ^3/uL (0-0.2); Basophils % (auto) 0.1 % (0.0-2.0); Eosinophils # (auto) 0.1 10 ^3/uL (0-0.8); Eosinophils % (auto) 0.7 % (0.0-7.0); Hematocrit 22.3 % (41.0-53.0); Hemoglobin 7.4 g/dL (13.5-17.5); Lymphocytes # (auto) 0.2 10 ^3/uL (0.4-5.4); Lymphocytes % (auto) 1.3 % (10.0-50.0); Mean Corpuscular Hemoglobin 30.5 pg (28.0-32.0); Mean Corpuscular Hgb Conc. 33.2 g/dL (32.0-36.0); Mean Corpuscular Volume 91.9 fL (80.0-100.0); Monocytes # (auto) 0.6 10 ^3/uL (0-1.3); Monocytes % (auto) 4.1 % (0.0-12.0); Neutrophils # (auto) 12.8 10 ^3/uL (1.6-8.6); Neutrophils % (auto) 93.8 % (37.0-80.0); Platelet Count (auto) 352 10^3/uL (140-450); Red Blood Cells 2.43 10^6/uL (4.5-5.90); White Blood Cell 13.7 10^3/uL (4.4-10.8)
[2024-09-21 07:16] LABS: Chloride 102 mmol/L (98-107); Potassium 2.7 mmol/L (3.5-5.1); Sodium 134 mmol/L (136-145)
[2024-09-21 07:17] LABS: Anion Gap 7 (5-15); Carbon Dioxide 25 mmol/L (20-31)
[2024-09-21 07:22] LABS: BUN/Creatinine Ratio 28.1 (10.0-20.0); Blood Urea Nitrogen 9 mg/dL (9-23); Glucose 71 mg/dL (74-106)
[2024-09-21 07:30] LABS: Calcium 5.8 mg/dL (8.7-10.4)
[2024-09-21] MEDS: LIDOCAINE 2%HCL (LOCAL ANESTH.) INJ 10ml MDV ONE (08:42)
[2024-09-21] MEDS: fentaNYL CITRATE 100 MCG/2 ML VL IV ONE (08:45)
[2024-09-21] MEDS: MIDAZOLAM HCL 2MG/2ML 2ml VIAL (1mg/ml) IV ONE (08:45)
--- NOTE | 2024-09-21 09:52 | DVHPN2 ---
Subjective Patient verbalizes that he feels better than yesterday. Reviewed: Care Plan, H&P, Labs Changes from previous H/P or p: No Changes Eyes: No Pain, No Vision change, No Conjunctivae inflammation, No Eyelid inflammation, No Other, No Redness ENT: No Ear pain, No Ear discharge, No Nose pain, No Nose discharge, No Nose congestion, No Mouth pain, No Mouth swelling, No Throat pain, No Throat swelling, No Other Cardiovascular: No Chest Pain, No Palpitations, No Orthopnea, No Paroxysmal Noc. Dyspnea, No Edema, No Lt Headedness, No Other Respiratory: No Cough, No Dry; Shortness of breath, SOB with excertion; No Wheezing, No Hemoptysis, No Pleuritic Pain, No Sputum; Other (SOB at rest) Gastrointestinal: Nausea; No Vomiting, No Abdominal Pain, No Diarrhea; C onstipation; No Melena, No Hematochezia; Other (Poor appetite) Genitourinary: No Dysuria, No Frequency, No Incontinence, No Hematuria, No Retention, No Other Musculoskeletal: No other, No neck pain, No shoulder pain, No arm pain, No back pain, No hand pain, No leg pain, No foot pain Skin: No Rash, No Lesions, No Jaundice, No Bruising, No Other Objective Vitals Vital Signs Date Time Temp Pulse Resp B/P (MAP) Pulse Ox O2 Delivery O2 Flow Rate FiO2 09/21/24 09:00 98.9 87 18 150/64 (92) 95 98.9 09/21/24 06:30 Nasal Cannula 3.0 09/21/24 06:30 32 Intake/Output Intake and Output 09/21/24 07:00 Intake Total 1994 ml Output Total 700 ml Balance 1294 ml Intake Oral 1494 ml IV Total 500 ml Output Urine Total 700 ml # Bowel Movements 1 General Appearance: Alert, Oriented X3, Cooperative, mild distress HEENT: Atraumatic, PERRLA Lungs: Clear to auscultation Cardiovascular: Normal S1, Normal S2 Abdomen: Normal bowel sounds Genitourinary: No Apparent Abnormalities Musculoskeletal: Normal sensory function, Normal motor function Neuro: Normal speech, Cranial nerves 3-12 NL Skin: Dry, Intact Psych/Mental Status: Mental status NL, Mood NL Medications Current Medications Medications Dose Ordered Sig/Cathy Route Start Time Stop Time Status Last Admin Dose Admin Albuterol 2.5 mg Q4HPRN PRN NEB 09/10/24 06:30 09/17/24 16:32 2.5 MG Ipratropium [place] 0.5 mg Q4HPRN PRN NEB 09/10/24 06:30 09/17/24 16:32 0.5 MG Vancomycin HCl 0 ml @ 0 mls/hr UD IV 09/10/24 06:30 Cancel Ondansetron HCl 4 mg Q4HP PRN IV 09/10/24 06:30 Docusate Sodium 100 mg BIDPRN PRN PO 09/10/24 06:30 09/11/24 09:53 100 MG Acetaminophen 650 mg Q6HP PRN PO 09/10/24 06:30 09/21/24 01:34 650 MG Nitroglycerin 0.4 mg Q5MINP PRN SL 09/10/24 06:30 Hydralazine HCl 10 mg Q6HP PRN IV 09/10/24 07:15 09/15/24 16:56 10 MG Enoxaparin Sodium 70 mg Q12HR SC 09/13/24 22:00 UNV Metronidazole 100 ml @ 100 mls/hr Q8HR IV 09/14/24 22:00 09/21/24 05:36 100 MLS/HR Levofloxacin/ Dextrose 100 ml @ 100 mls/hr DAILY IV 09/16/24 10:00 09/20/24 12:01 100 MLS/HR Enteral Nutritional Formula 240 ml TIDWM PO 09/16/24 18:00 09/20/24 18:11 240 ML Nystatin 5 ml QID MT 09/17/24 18:00 09/21/24 05:35 5 ML Fluconazole 100 ml @ 100 mls/hr DAILY IV 09/18/24 10:00 09/20/24 10:01 100 MLS/HR Albuterol 2.5 mg Q4HWA NEB 09/17/24 18:00 09/21/24 06:30 2.5 MG Ipratropium [place] 0.5 mg Q4HWA NEB 09/17/24 18:00 09/21/24 06:29 0.5 MG Melatonin 10 mg QHSP PRN PO 09/20/24 15:15 09/20/24 21:40 10 MG Calcium Gluconate/ Sodium Chloride 50 ml @ 100 mls/hr Q30M IV 09/21/24 09:15 09/21/24 10:14 Laboratory Results Laboratory Tests 09/21/24 06:40 Chemistry Test 09/21/24 06:40 Calcium Level 5.8 mg/dL (8.7-10.4) *L Coagulation Test 09/21/24 09:26 Prothrombin Time Pending Prothrombin Time INR Pending Activated Partial Thromboplast Time Pending Urinalysis Test 09/10/24 04:47 09/14/24 08:00 Urine Color Yellow (Yellow) Urine Clarity Clear (Clear) Urine pH 6.0 (5.0-9.0) Urine Specific [place] 1.031 (1.001-1.035) Urine Protein 1+ (Negative) H Urine Ketones Trace (Negative) Urine Blood Negative /uL (Negative) Urine Nitrite Negative (Negative) Urine Bilirubin Negative (Negative) Urine Urobilinogen 2 mg/dL (Negative) H Urine Leukocyte Esterase Negative /uL (Negative) Urine RBC 3 /hpf (0 - 3) Urine WBC 3 /hpf (0 - 3) Urine Squamous Epithelial Cells None seen /hpf (<5) Urine Bacteria None seen /hpf (None Seen) Urine Mucus Few (None Seen) Urine Glucose Normal mg/dL (Normal) Urine Osmolality 405 mOsm/kg Urine Creatinine 40.31 mg/dL (30.0-125.0) Urine Protein/Creatinine Ratio 0.54 Urine Sodium 24 mmol/L (40-220) L Urine Total Protein 21.7 mg/dL (1-14) H Microbiology Microbiology Date/Time Source Procedure Growth Status 09/18/24 14:50 Blood Blood Culture - Preliminary NO GROWTH AFTER 48 HOURS OF INCUBATION. Resulted 09/16/24 20:50 Sputum Gram Stain - Final Complete 09/16/24 20:50 Respiratory Culture - Final Presumptive Desirae albicans Complete 09/13/24 09:50 Nose MRSA Screen - Final Complete Labs and/or images reviewed: Labs reviewed by me, Image(s) reviewed by me Assessment/Plan Assessment/Plan Plan: -sepsis -pneumonia -necrotizing lymph node -bullous emphysema -acute hypoxic respiratory failure -nicotine dependence -atelectasis -hyponatremia Plan: Events: Patient to IR for necrotic lymph node biopsy. Noted hypocalcemia as well as hypokalemia. Appropriate supplementation provided. Patient was longer febrile. Decrease in WBC -ID consultation : Recommendations reviewed -pulmonary consultation : Recommendations review -continue current antibiotic therapy : Flagyl, Levaquin,nystatin swish and swallow as well as IV Diflucan -change to pureed diet with supplementation -bronchodilators -PUD, DVT prophylaxis -repeat labs in a.m. Total time spent with patient discussing and formulating plan of care: 35 minutes. This medical document was created using an electronic medical record system with [employer] dictation system. Although this document has been carefully reviewed, there may still be some phonetic and typographical errors. These areas are purely typographical due to imperfections of the software programs, and do not reflect any compromise in the patient's medical care. Plan discussed with: Patient, Other (RN) My Orders Orders - KYUNG KENDRICK NP Procedure Category Date Status Time Melatonin (Melatonin) PHA 09/20/24 In Process 15:[address] 09/21/24 Logged Needle Placeme 08:[address] 09/21/24 Logged Contrast 08:42 PTPTT LAB 09/21/24 Logged 09:11 Potassium Chloride PHA 09/21/24 In Process (Potassium Chloride). 09:15 Calcium Gluc PHA 09/21/24 In Process 1,000mg/50ml-Ns 09:15 Comprehensive LAB 09/22/24 Verified Metabolic Panel 04:00 Complete Blood Count LAB 09/22/24 Verified 04:00 Date of Service: Sep 21, 2024 Billing Provider: KYUNG KENDRICK NP Common Visit Codes: [id number] INP/OBS CARE(HIGH) KYUNG KENDRICK NP Sep 21, 2024 09:52
[2024-09-21] MEDS: CALCIUM GLUC 1,000mg/50ml-NS 50 ML IV SCH (10:25)
--- NOTE | 2024-09-21 10:25 | DVH ---
CT ABDOMEN WITHOUT CONTRAST, HISTORY: LYMPH NODE BX PROCEDURE: Informed consent was obtained. The patient was placed pone on the CT scanner. A limited lo calization CT scan of the lung base was obtained. The skin overlying the lesion was prepped with chlo rhexidine which was allowed to dry and draped in sterile fashion. Time out was performed. The skin an d soft tissues were infiltrated with Xylocaine, and IV sedation was administered. With intermittent C T guidance, a 17 gauge Temno outer coaxial guiding needle was advanced into the left paravertebral ma ss. The needle position was confirmed with CT scan. 5 core biopsies were obtained using Temno inner 1 8 gauge biopsy needle. The specimens were sent in formalin and RPMI to pathology for analysis. The ne edle was withdrawn, and post procedural CT obtained through the biopsy region. No immediate complicat ion was identified. DLP = 1709 mGy-cm. SEDATION: Dr. Bob Cisneros was personally responsible for the administration of moderate sedation during the procedure performed, including the use of an independent trained observer who had no other duties during the procedure. The drugs utilized were IV fentanyl and versed (see nursing log for details). The total time of supervision by the attending physician was approximately 30 minutes. FINDINGS: Limited CT scan demonstrates a soft tissue mass in the left paravertebral soft tissue. No post biopsy hemorrhage or pneumothorax is noted. IMPRESSION/PLAN: CT guided left paravertebral soft tissue mass lesion biopsy.
[2024-09-21 13:35] LABS: INR 1.31 (0.9-1.15); Prothrombin Time 13.6 sec (9.3-11.8)
[2024-09-21] MEDS: POTASSIUM CHLORIDE 40 MEQ, LIDOCAINE 1% (LOCAL ANESTH.) 4 ML in SODIUM CHL 0.9% 250 ML IV ONE (17:34)
--- NOTE | 2024-09-21 21:31 | DVHPN2 ---
Progress Note - Dictate Date Seen: Sep 21, 2024 Medical Necessity Reason Pt with a Central, PICC or Fol: Yes The following are medically ne: Lara Catheter Reason for lara catheter: Strict I&O Subjective Patient seen and examined at bedside. Remains on supplemental oxygen Overnight events reviewed. vital signs Vital Sign Date Time Temp Pulse Resp B/P (MAP) Pulse Ox O2 Delivery O2 Flow Rate FiO2 09/21/24 19:12 93 18 99 09/21/24 19:05 Nasal Cannula 2.0 09/21/24 19:05 28 09/21/24 17:00 99.5 131/67 (88) 99.5 Total Intake and Output 09/20/24 09/20/24 09/21/24 15:00 23:00 07:00 Intake Total 674 ml 820 ml 500 ml Output Total 700 ml Balance 674 ml 820 ml -200 ml medications Current Medications Medications Dose Ordered Sig/Cathy Route Start Time Stop Time Status Last Admin Dose Admin Albuterol 2.5 mg Q4HPRN PRN NEB 09/10/24 06:30 09/17/24 16:32 2.5 MG Ipratropium [place] 0.5 mg Q4HPRN PRN NEB 09/10/24 06:30 09/17/24 16:32 0.5 MG Vancomycin HCl 0 ml @ 0 mls/hr UD IV 09/10/24 06:30 Cancel Ondansetron HCl 4 mg Q4HP PRN IV 09/10/24 06:30 Docusate Sodium 100 mg BIDPRN PRN PO 09/10/24 06:30 09/11/24 09:53 100 MG Acetaminophen 650 mg Q6HP PRN PO 09/10/24 06:30 09/21/24 01:34 650 MG Nitroglycerin 0.4 mg Q5MINP PRN SL 09/10/24 06:30 Hydralazine HCl 10 mg Q6HP PRN IV 09/10/24 07:15 09/15/24 16:56 10 MG Enoxaparin Sodium 70 mg Q12HR SC 09/13/24 22:00 UNV Metronidazole 100 ml @ 100 mls/hr Q8HR IV 09/14/24 22:00 09/21/24 14:20 100 MLS/HR Levofloxacin/ Dextrose 100 ml @ 100 mls/hr DAILY IV 09/16/24 10:00 09/21/24 11:45 100 MLS/HR Enteral Nutritional Formula 240 ml TIDWM PO 09/16/24 18:00 09/21/24 18:00 240 ML Nystatin 5 ml QID MT 09/17/24 18:00 09/21/24 17:27 5 ML Fluconazole 100 ml @ 100 mls/hr DAILY IV 09/18/24 10:00 09/21/24 12:47 100 MLS/HR Albuterol 2.5 mg Q4HWA NEB 09/17/24 18:00 09/21/24 19:05 2.5 MG Ipratropium [place] 0.5 mg Q4HWA NEB 09/17/24 18:00 09/21/24 19:05 0.5 MG Melatonin 10 mg QHSP PRN PO 09/20/24 15:15 09/20/24 21:40 10 MG objective Gen.: Patient lying in bed in no apparent distress. On supplemental oxygen. Head: Normocephalic, atraumatic. Eyes: EOMI/PERRLA. Ears: Normal hearing. Normal anatomy. Neck/trachea: Trachea midline, supple. Nose: Normal external anatomy. Mouth: Moist mucous membranes. Chest: Decreased air entry bilaterally. No wheezing or rhonchi. Positive crackles. Cardiovascular: Positive S1, positive S2. Regular rate and rhythm. Abdomen: Positive bowel sounds in all 4 quadrants. Soft, non-tender, non- distended. : Deferred. Rectal: Deferred. Skin: Warm, dry. Intact. Extremities: 2+ radial pulses bilaterally. No lower extremity edema. Neuro: Awake, alert, oriented x3. No gross motor or sensory deficits. Cranial nerves II through XII intact. Gait not assessed. laboratory and microbiology Laboratory Tests 09/21/24 06:40 Test 09/21/24 06:40 Range/Units Serum Glucose 71 L 74-106 mg/dL Assessment/Plan Impression: Acute hypoxic respiratory failure Pneumonia COPD Emphysema , paraseptal and centrilobular Fibroid atelectatic opacities in the right middle lobe, lingula and bilateral lower lobes. Calcified pleural plaques in the right upper lobe and posterior aspects of the lower lobes bilaterally Pleural effusions, Atelectasis Hyponatremia Events: Remains on supplemental O2 at 2 LPM NC Taper O2 as tolerated Patient is s/p biopsy of lymph node by IR. Incentive spirometry Continue bronchodilators Continue antibiotics/antifungal. Head of bed elevation Aspiration precautions Continue diuresis Monitor renal function. Monitor ins and outs Improved edema. Lara d/t urinary retention. HERSON resolved after Lara placement - HERSON likely due to urine retention. IV fluids at 60 ml/hr. Labs and imaging reviewed. Rest of plan as noted below. Plan: Supplemental oxygen Keep O2 saturation above 92% CT chest report and images reviewed. Emphysematous changes. Fibro atelectatic opacity in the right middle lobe, lingula and bilateral lower lobes. Calcified plaques in the right upper and bilateral lower lobes and posteriorly. Minimal pleural effusions and atelectasis. Antibiotics. Monitor WBC count. Blood cultures show no growth. Continue bronchodilators as needed. Pain control. Avoid over-sedation. Incentive spirometry. IV fluids at 60 mL an hour. Monitor renal function. Monitor electrolytes. Supplement as necessary. Hyponatremia - Monitor sodium DVT prophylaxis Prognosis: Guarded given multiple comorbidities. Rest of plan per hospitalist and other consultants. Thank you Dr. Reed for allowing me to participate in this patient's care. Further recommendations will depend on patient's clinical course. Please do not hesitate to contact me if you have any questions or concerns. This medical document was created using an electronic medical record system with [employer] dictation system. Although this document has been carefully reviewed, there may still be some phonetic and typographical errors. These areas are purely typographical due to imperfections of the software programs, and do not reflect any compromise in the patient's medical care. Dietary Evaluation Review Comments: 1) Consider SORAIDA 1 pkt BID for wounds 2) Continue current plan of care Expected Outcomes/Goals: F/U in 3-5 days Plan discussed with: Patient, Other (TORITO Zepeda MD Sep 21, 2024 21:31
--- NOTE | 2024-09-21 22:46 | DVHPN2 ---
Consult Progress Note Date Seen: Sep 21, 2024 Subjective Patient reports: Other (underwent lymph node biopsy of the right posterior lower back, tolerated procedure is a bit drowsey . is on 2 liters nasal canula) Objective vital signs Vital Sign Date Time Temp Pulse Resp B/P (MAP) Pulse Ox O2 Delivery O2 Flow Rate FiO2 09/21/24 22:09 94 18 100 09/21/24 22:02 Nasal Cannula 2.0 09/21/24 22:02 28 09/21/24 21:00 98.3 126/55 (78) 98.3 Total Intake and Output 09/20/24 09/20/24 09/21/24 15:00 23:00 07:00 Intake Total 674 ml 820 ml 500 ml Output Total 700 ml Balance 674 ml 820 ml -200 ml medications Current Medications Medications Dose Ordered Sig/Cathy Route Start Time Stop Time Status Last Admin Dose Admin Albuterol 2.5 mg Q4HPRN PRN NEB 09/10/24 06:30 09/17/24 16:32 2.5 MG Ipratropium [place] 0.5 mg Q4HPRN PRN NEB 09/10/24 06:30 09/17/24 16:32 0.5 MG Vancomycin HCl 0 ml @ 0 mls/hr UD IV 09/10/24 06:30 Cancel Ondansetron HCl 4 mg Q4HP PRN IV 09/10/24 06:30 Docusate Sodium 100 mg BIDPRN PRN PO 09/10/24 06:30 09/11/24 09:53 100 MG Acetaminophen 650 mg Q6HP PRN PO 09/10/24 06:30 09/21/24 21:42 650 MG Nitroglycerin 0.4 mg Q5MINP PRN SL 09/10/24 06:30 Hydralazine HCl 10 mg Q6HP PRN IV 09/10/24 07:15 09/15/24 16:56 10 MG Enoxaparin Sodium 70 mg Q12HR SC 09/13/24 22:00 UNV Metronidazole 100 ml @ 100 mls/hr Q8HR IV 09/14/24 22:00 09/21/24 21:36 100 MLS/HR Levofloxacin/ Dextrose 100 ml @ 100 mls/hr DAILY IV 09/16/24 10:00 09/21/24 11:45 100 MLS/HR Enteral Nutritional Formula 240 ml TIDWM PO 09/16/24 18:00 09/21/24 18:00 240 ML Nystatin 5 ml QID MT 09/17/24 18:00 09/21/24 21:36 5 ML Fluconazole 100 ml @ 100 mls/hr DAILY IV 09/18/24 10:00 09/21/24 12:47 100 MLS/HR Albuterol 2.5 mg Q4HWA NEB 09/17/24 18:00 09/21/24 22:02 2.5 MG Ipratropium [place] 0.5 mg Q4HWA NEB 09/17/24 18:00 09/21/24 22:02 0.5 MG Melatonin 10 mg QHSP PRN PO 09/20/24 15:15 09/20/24 21:40 10 MG PHYSICAL EXAM: - GENERAL: Alert and oriented x 3. No acute distress. Well-nourished. - EYES: EOMI. Anicteric. - HENT: Moist mucous membranes. No scleral icterus. No cervical lymphadenopathy. - LUNGS: Clear to auscultation bilaterally. No accessory muscle use. - CARDIOVASCULAR: Regular rate and rhythm. No murmur. No JVD. - ABDOMEN: Soft, non-tender and non-distended. No palpable masses. - EXTREMITIES: No edema. Non-tender.?SKIN: No rashes or lesions. Warm. - NEUROLOGIC: No focal neurological deficits. CN II-XII grossly intact, but not individually tested. - PSYCHIATRIC: Cooperative. Appropriate mood and affect. laboratory and microbiology Laboratory Tests 09/21/24 06:40 Test 09/21/24 06:40 Range/Units Serum Glucose 71 L 74-106 mg/dL Problem List/Assessment/Plan Problems(with codes): (1) ASTHMA, CHRONIC OBSTRUCTIVE W ASTHMATICUS (2) SHORTNESS OF BREATH (3) COPD (chronic obstructive pulmonary disease) (4) Pneumonia (5) Status asthmaticus (6) Leukocytosis, unspecified (7) Hypertension (8) Hyponatremia (9) Multifocal pneumonia (10) Generalized weakness Problem List/Assessment/Plan ID Problem List: -- Generalized weakness -- Fall with head injury -- Multifocal pneumonia -- Leukocytosis -- COPD exacerbation -- Hyponatremia -- Stage 2 sacral ulcers -- Tobacco use disorder Assessment This is a 79 y.o. male with a past medical history of asthma, COPD, and depression, who presents with generalized weakness and a fall resulting in a forehead abrasion. He has been experiencing loss of appetite, no bowel movements, and shortness of breath. Laboratory findings show leukocytosis with a WBC count of 35.6??10?/L, thrombocytosis with platelets at 539??10?/L, hyponatremia with sodium at 120?mmol/L, BUN of 22?mg/dL, creatinine of 0.6?mg/dL, glucose of 102?mg/dL, lactic acid of 1.5?mmol/L, and hemoglobin of 13.7?g/dL. CT head showed no acute abnormality. Chest CT revealed thyromegaly and extensive alveolar and parenchymal infiltrates in both lungs, seen in the right middle lobe, lingula, and both lower lobes. He was started empirically on vancomycin and ceftriaxone; azithromycin was later added. The patient has stage 2 sacral ulcers, non-purulent and non-eroded. 09/13: On imaging his doppler lower extemity ultrasound shows a nonocclusive thrombo scene in the proximal left superficial fomoral vein. CT of lungs which showed no pulmonary embolism. diffuse abnormal tissue density in posterior media steinum extened from the upper thorax to diaphragmatic hiatus with small air bubbles thats increased in size compared to last exam, which could represent nectrotic adenopathy abscess or esophageal injury or rupture. component on the left at the diaphragmatic hiatus is recommended , smoking related lung disease , patchy eclecticism consolidation. 09/14: white count remains elevated at 33. Dr choi from oncology saw patinet and suggent proliferative disorder is a possiblility but will asses after antibiotics, as well as consider a biopsy after a few weeks. MRSA nares came negative. 09/15: white count is slowing coming down and a backorder of levofloxacin 09/16: white count is slowly downtrending now at 28, 2 liters nasal canula 09/17: Patient was able to produce and induced sputum sample and so far results are with no growth 09/21: White count continues to downtrend now at 13 Plan: -- Status post lymph node biopsy will follow up on pathology results - If whitecount continues to downtread recommend discharging patient on 2 weeks of levofloxacin and following up outpatient -- continue 500 milligrans IV of levofloxacin -- will fu on sputum culture -- patient started on eliquis for DVT for 3 months -- another 2 weeks of antibiotic use for presumed pneumonia -- patient should follow up with infectious disease for chest Ct to see if necrotic lymph node resolved -- outpatient follow up with hematology and oncology -- Implement wound care for stage 2 sacral ulcers. -- Monitor vital signs and oxygen saturation. Isolation Precautions: Standard Plan discussed with: Other Dietary Evaluation Review Comments: 1) Consider SORAIDA 1 pkt BID for wounds 2) Continue current plan of care Expected Outcomes/Goals: F/U in 3-5 days SHELBY OQUENDO MD Sep 21, 2024 22:46
[2024-09-22] VITALS (20 sets, daily range): BP systolic 102–174; BP diastolic 45–85; PULSE 90–108; RESP 18–24; TEMP 98.3–98.9; O2SAT 84–100
[2024-09-22 07:07] LABS: Basophils # (auto) 0 10 ^3/uL (0-0.2); Basophils % (auto) 0.2 % (0.0-2.0); Eosinophils # (auto) 0.1 10 ^3/uL (0-0.8); Eosinophils % (auto) 0.3 % (0.0-7.0); Hematocrit 31.6 % (41.0-53.0); Hemoglobin 10.4 g/dL (13.5-17.5); Lymphocytes # (auto) 0.3 10 ^3/uL (0.4-5.4); Lymphocytes % (auto) 1.9 % (10.0-50.0); Mean Corpuscular Hemoglobin 30.3 pg (28.0-32.0); Mean Corpuscular Hgb Conc. 32.9 g/dL (32.0-36.0); Monocytes # (auto) 0.9 10 ^3/uL (0-1.3); Neutrophils # (auto) 15.9 10 ^3/uL (1.6-8.6); Neutrophils % (auto) 92.6 % (37.0-80.0); Platelet Count (auto) 595 10^3/uL (140-450); Red Blood Cells 3.43 10^6/uL (4.5-5.90); Red Cell Distribution Width 14.2 % (11.8-14.3); White Blood Cell 17.2 10^3/uL (4.4-10.8)
[2024-09-22 07:28] LABS: Alanine Aminotransferase 12 U/L (7-40); Alkaline Phosphatase 80 U/L (46-116); Anion Gap 1 (5-15); BUN/Creatinine Ratio 45.5 (10.0-20.0); Blood Urea Nitrogen 15 mg/dL (9-23); Calcium 8.4 mg/dL (8.7-10.4); Carbon Dioxide 34 mmol/L (20-31); Chloride 97 mmol/L (98-107); Glucose 96 mg/dL (74-106); Potassium 4.6 mmol/L (3.5-5.1); Sodium 132 mmol/L (136-145)
[2024-09-22 07:29] LABS: Albumin 2.4 g/dL (3.2-4.8); Aspartate Aminotransferase 32 U/L (13-40)
[2024-09-22 07:30] LABS: Bilirubin, Total 0.4 mg/dL (0.2-1.0); Total Protein 5.6 g/dL (5.7-8.2)
[2024-09-22] MEDS: FUROSEMIDE 40 MG/4 ML VIAL IV ONE (11:14)
--- NOTE | 2024-09-22 11:25 | DVH ---
CHEST RADIOGRAPH Indication: pna, CHF Technique: Single frontal view of the chest was obtained Comparison: XY CHEST PORTABLE on DOS: 09/19/24, XY CHEST PORTABLE on DOS: 09/17/24, XY CHEST XRAY 1 V IEW on DOS: 09/12/24, XY CHEST PORTABLE on DOS: 09/10/24, XY CHEST PORTABLE on DOS: 09/19/24 FINDINGS: Lines and Tubes: None Lungs: Stable masslike opacities throughout both lungs. Pleura: No effusion. No pneumothorax. Cardiomediastinal contours: Unremarkable Bones: No acute osseous abnormality. IMPRESSION: Stable masslike opacities throughout both lungs.
[2024-09-22 11:54] LABS: Base Excess 8.5 mmol/L (-2.0-3.0)
--- NOTE | 2024-09-22 12:56 | DVHPN2 ---
Subjective Patient was assessed to be more lethargic than yesterday. Reviewed: Care Plan, H&P, Labs Changes from previous H/P or p: Changes Eyes: No Pain, No Vision change, No Conjunctivae inflammation, No Eyelid inflammation, No Other, No Redness ENT: No Ear pain, No Ear discharge, No Nose pain, No Nose discharge, No Nose congestion, No Mouth pain, No Mouth swelling, No Throat pain, No Throat swelling, No Other Cardiovascular: No Chest Pain, No Palpitations, No Orthopnea, No Paroxysmal Noc. Dyspnea, No Edema, No Lt Headedness, No Other Respiratory: No Cough, No Dry; Shortness of breath, SOB with excertion; No Wheezing, No Hemoptysis, No Pleuritic Pain, No Sputum; Other (SOB at rest) Gastrointestinal: Nausea; No Vomiting, No Abdominal Pain, No Diarrhea; C onstipation; No Melena, No Hematochezia; Other (Poor appetite) Genitourinary: No Dysuria, No Frequency, No Incontinence, No Hematuria, No Retention, No Other Musculoskeletal: No other, No neck pain, No shoulder pain, No arm pain, No back pain, No hand pain, No leg pain, No foot pain Skin: No Rash, No Lesions, No Jaundice, No Bruising, No Other Objective Vitals Vital Signs Date Time Temp Pulse Resp B/P (MAP) Pulse Ox O2 Delivery O2 Flow Rate FiO2 09/22/24 11:14 108/56 09/22/24 10:18 91 20 99 09/22/24 10:11 Nasal Cannula 3.0 09/22/24 10:11 32 09/22/24 09:00 98.7 98.7 Intake/Output Intake and Output 09/22/24 07:00 Intake Total 1268.5 ml Output Total 850 ml Balance 418.5 ml Intake Oral 600 ml IV Total 668.5 ml Output Urine Total 850 ml General Appearance: Alert, Oriented X3, Cooperative, mild distress HEENT: Atraumatic, PERRLA Lungs: Clear to auscultation Cardiovascular: Normal S1, Normal S2 Abdomen: Normal bowel sounds Genitourinary: No Apparent Abnormalities Musculoskeletal: Normal sensory function, Normal motor function Neuro: Normal speech, Cranial nerves 3-12 NL Skin: Dry, Intact Psych/Mental Status: Mental status NL, Mood NL Medications Current Medications Medications Dose Ordered Sig/Cathy Route Start Time Stop Time Status Last Admin Dose Admin Albuterol 2.5 mg Q4HPRN PRN NEB 09/10/24 06:30 09/22/24 02:04 2.5 MG Ipratropium [place] 0.5 mg Q4HPRN PRN NEB 09/10/24 06:30 09/22/24 02:04 0.5 MG Vancomycin HCl 0 ml @ 0 mls/hr UD IV 09/10/24 06:30 Cancel Ondansetron HCl 4 mg Q4HP PRN IV 09/10/24 06:30 Docusate Sodium 100 mg BIDPRN PRN PO 09/10/24 06:30 09/11/24 09:53 100 MG Acetaminophen 650 mg Q6HP PRN PO 09/10/24 06:30 09/22/24 08:01 650 MG Nitroglycerin 0.4 mg Q5MINP PRN SL 09/10/24 06:30 Enoxaparin Sodium 70 mg Q12HR SC 09/13/24 22:00 UNV Metronidazole 100 ml @ 100 mls/hr Q8HR IV 09/14/24 22:00 09/22/24 12:44 100 MLS/HR Levofloxacin/ Dextrose 100 ml @ 100 mls/hr DAILY IV 09/16/24 10:00 09/22/24 10:07 100 MLS/HR Enteral Nutritional Formula 240 ml TIDWM PO 09/16/24 18:00 09/22/24 12:18 240 ML Nystatin 5 ml QID MT 09/17/24 18:00 09/22/24 12:18 5 ML Fluconazole 100 ml @ 100 mls/hr DAILY IV 09/18/24 10:00 09/22/24 10:07 100 MLS/HR Albuterol 2.5 mg Q4HWA NEB 09/17/24 18:00 09/22/24 10:10 2.5 MG Ipratropium [place] 0.5 mg Q4HWA NEB 09/17/24 18:00 09/22/24 10:10 0.5 MG Melatonin 10 mg QHSP PRN PO 09/20/24 15:15 09/22/24 02:03 10 MG Furosemide 40 mg BIDD IV 09/22/24 18:00 UNV Potassium Chloride 10 meq DAILY PO 09/23/24 10:00 UNV Enalaprilat 1.25 mg Q6HP PRN IV 09/22/24 13:00 UNV Laboratory Results Laboratory Tests 09/22/24 06:49 Chemistry Test 09/22/24 06:49 Albumin 2.4 g/dL (3.2-4.8) L Calcium Level 8.4 mg/dL (8.7-10.4) L Total Protein 5.6 g/dL (5.7-8.2) L Coagulation Test 09/21/24 13:09 Prothrombin Time 13.6 sec (9.3-11.8) H Prothrombin Time INR 1.31 (0.9-1.15) H Activated Partial Thromboplast Time 33.0 SEC (24.5-34.5) LFT Test 09/22/24 06:49 Alanine Aminotransferase (ALT) 12 U/L (7-40) Alkaline Phosphatase 80 U/L (46-116) Aspartate Amino Transferase (AST) 32 U/L (13-40) Total Bilirubin 0.4 mg/dL (0.2-1.0) Urinalysis Test 09/10/24 04:47 09/14/24 08:00 Urine Color Yellow (Yellow) Urine Clarity Clear (Clear) Urine pH 6.0 (5.0-9.0) Urine Specific [place] 1.031 (1.001-1.035) Urine Protein 1+ (Negative) H Urine Ketones Trace (Negative) Urine Blood Negative /uL (Negative) Urine Nitrite Negative (Negative) Urine Bilirubin Negative (Negative) Urine Urobilinogen 2 mg/dL (Negative) H Urine Leukocyte Esterase Negative /uL (Negative) Urine RBC 3 /hpf (0 - 3) Urine WBC 3 /hpf (0 - 3) Urine Squamous Epithelial Cells None seen /hpf (<5) Urine Bacteria None seen /hpf (None Seen) Urine Mucus Few (None Seen) Urine Glucose Normal mg/dL (Normal) Urine Osmolality 405 mOsm/kg Urine Creatinine 40.31 mg/dL (30.0-125.0) Urine Protein/Creatinine Ratio 0.54 Urine Sodium 24 mmol/L (40-220) L Urine Total Protein 21.7 mg/dL (1-14) H Blood Gas Results Test 09/22/24 11:28 Arterial Blood pH 7.435 (7.350-7.450) FiO2 % 40.0 Microbiology Microbiology Date/Time Source Procedure Growth Status 09/18/24 14:50 Blood Blood Culture - Preliminary NO GROWTH AFTER 72 HOURS OF INCUBATION. Resulted 09/16/24 20:50 Sputum Gram Stain - Final Complete 09/16/24 20:50 Respiratory Culture - Final Presumptive Desirae albicans Complete 09/13/24 09:50 Nose MRSA Screen - Final Complete Labs and/or images reviewed: Labs reviewed by me, Image(s) reviewed by me Assessment/Plan Assessment/Plan Plan: -sepsis -pneumonia -necrotizing lymph node -bullous emphysema -acute hypoxic respiratory failure -nicotine dependence -atelectasis -hyponatremia -pulmonary mass, rule out CA Plan: Events: Patient was assessed this morning to be hypertensive, questionable worsening pulmonary vascular congestion. Patient given IV diuresis. Chest x- ray reviewed. ABG reviewed. We will transfer patient to ICU if patient continues to have respiratory distress despite interventions. -ID consultation : Recommendations reviewed -pulmonary consultation : Recommendations review -continue current antibiotic therapy : Flagyl, Levaquin,nystatin swish and swallow as well as IV Diflucan -change to pureed diet with supplementation -bronchodilators -PUD, DVT prophylaxis -repeat labs in a.m. Total time spent with patient discussing and formulating plan of care: 35 minutes. This medical document was created using an electronic medical record system with [employer] dictation system. Although this document has been carefully reviewed, there may still be some phonetic and typographical errors. These areas are purely typographical due to imperfections of the software programs, and do not reflect any compromise in the patient's medical care. Plan discussed with: Other (RN, RT) My Orders Orders - KYUNG KENDRICK NP Procedure Category Date Status Time Pureed DIET 09/21/24 Transmitted Lunch Abg W/ Co-Ox RT 09/22/24 Logged 10:22 Chest Xray 1 View XY 09/22/24 Resulted 10:22 Oxygen By High-Flow RT 09/22/24 Transmitted 11:17 Furosemide Injection PHA 09/22/24 Logged (Lasix Injection) 18:00 Potassium Er Tablet PHA 09/23/24 Logged (Klor-Con Tablet) 10:00 Enalaprilat Injection PHA 09/22/24 Logged (Vasotec Injection 13:00 Date of Service: Sep 22, 2024 Billing Provider: KYUNG KENDRICK NP Common Visit Codes: 85018-[id number] CARE 30-74 MIN KYUNG KENDRICK NP Sep 22, 2024 12:56
[2024-09-22] MEDS ORDERED: ENALAPRILAT 1.25 MG/ML-1ML VIAL IV PRN (13:00)
[2024-09-22] MEDS: MORPHINE SULFATE INJ 2 MG/ml SYRG IV PRN (15:22)
[2024-09-22] MEDS: FUROSEMIDE 40 MG/4 ML VIAL IV SCH (18:44)
--- NOTE | 2024-09-22 21:12 | DVHPN2 ---
Progress Note - Dictate Date Seen: Sep 22, 2024 Medical Necessity Reason Pt with a Central, PICC or Fol: Yes The following are medically ne: Lara Catheter Reason for lara catheter: Strict I&O Subjective Patient seen and examined at bedside. Remains on supplemental oxygen Overnight events reviewed. vital signs Vital Sign Date Time Temp Pulse Resp B/P (MAP) Pulse Ox O2 Delivery O2 Flow Rate FiO2 09/22/24 18:44 135/55 09/22/24 18:17 84 Nasal Cannula* 6 44 09/22/24 18:16 100 20 09/22/24 13:00 98.9 98.9 Total Intake and Output 09/21/24 09/21/24 09/22/24 15:00 23:00 07:00 Intake Total 300 ml 268.5 ml 700 ml Output Total 500 ml 350 ml Balance 300 ml -231.5 ml 350 ml medications Current Medications Medications Dose Ordered Sig/Cathy Route Start Time Stop Time Status Last Admin Dose Admin Albuterol 2.5 mg Q4HPRN PRN NEB 09/10/24 06:30 09/22/24 02:04 2.5 MG Ipratropium [place] 0.5 mg Q4HPRN PRN NEB 09/10/24 06:30 09/22/24 02:04 0.5 MG Vancomycin HCl 0 ml @ 0 mls/hr UD IV 09/10/24 06:30 Cancel Ondansetron HCl 4 mg Q4HP PRN IV 09/10/24 06:30 Docusate Sodium 100 mg BIDPRN PRN PO 09/10/24 06:30 09/11/24 09:53 100 MG Acetaminophen 650 mg Q6HP PRN PO 09/10/24 06:30 09/22/24 08:01 650 MG Nitroglycerin 0.4 mg Q5MINP PRN SL 09/10/24 06:30 Enoxaparin Sodium 70 mg Q12HR SC 09/13/24 22:00 UNV Metronidazole 100 ml @ 100 mls/hr Q8HR IV 09/14/24 22:00 09/22/24 12:44 100 MLS/HR Levofloxacin/ Dextrose 100 ml @ 100 mls/hr DAILY IV 09/16/24 10:00 09/22/24 10:07 100 MLS/HR Enteral Nutritional Formula 240 ml TIDWM PO 09/16/24 18:00 09/22/24 18:47 240 ML Nystatin 5 ml QID MT 09/17/24 18:00 09/22/24 18:44 5 ML Fluconazole 100 ml @ 100 mls/hr DAILY IV 09/18/24 10:00 09/22/24 10:07 100 MLS/HR Albuterol 2.5 mg Q4HWA NEB 09/17/24 18:00 09/22/24 18:16 2.5 MG Ipratropium [place] 0.5 mg Q4HWA NEB 09/17/24 18:00 09/22/24 18:16 0.5 MG Melatonin 10 mg QHSP PRN PO 09/20/24 15:15 09/22/24 02:03 10 MG Furosemide 40 mg BIDD IV 09/22/24 18:00 09/22/24 18:44 40 MG Potassium Chloride 10 meq DAILY PO 09/23/24 10:00 Enalaprilat 1.25 mg Q6HP PRN IV 09/22/24 13:00 Morphine Sulfate 1 mg Q4HP PRN IV 09/22/24 14:15 09/22/24 15:22 1 MG objective Gen.: Patient lying in bed in no apparent distress. On supplemental oxygen. Head: Normocephalic, atraumatic. Eyes: EOMI/PERRLA. Ears: Normal hearing. Normal anatomy. Neck/trachea: Trachea midline, supple. Nose: Normal external anatomy. Mouth: Moist mucous membranes. Chest: Decreased air entry bilaterally. No wheezing or rhonchi. Positive crackles. Cardiovascular: Positive S1, positive S2. Regular rate and rhythm. Abdomen: Positive bowel sounds in all 4 quadrants. Soft, non-tender, non- distended. : Deferred. Rectal: Deferred. Skin: Warm, dry. Intact. Extremities: 2+ radial pulses bilaterally. No lower extremity edema. Neuro: Awake, alert, oriented x3. No gross motor or sensory deficits. Cranial nerves II through XII intact. Gait not assessed. laboratory and microbiology Laboratory Tests 09/22/24 06:49 Test 09/22/24 06:49 Range/Units Serum Glucose 96 74-106 mg/dL Assessment/Plan Impression: Acute hypoxic respiratory failure Pneumonia COPD Emphysema , paraseptal and centrilobular Fibroid atelectatic opacities in the right middle lobe, lingula and bilateral lower lobes. Calcified pleural plaques in the right upper lobe and posterior aspects of the lower lobes bilaterally Pleural effusions, Atelectasis Hyponatremia Events: Remains on supplemental O2 at 3 LPM NC Taper O2 as tolerated Incentive spirometry Continue bronchodilators PRN. Continue antibiotics - Levaquin and Flagyl. Continue antifungal. Blood cultures show no growth after 72 hours. Head of bed elevation Aspiration precautions Continue diuresis w/ Lasix BID Monitor renal function. Monitor ins and outs Potassium supplementation CXR shows stable bilateral opacities. Lara d/t urinary retention. HERSON resolved after Lara placement - HERSON likely due to urine retention. Labs and imaging reviewed. Rest of plan as noted below. Plan: Supplemental oxygen Keep O2 saturation above 92% CT chest report and images reviewed. Emphysematous changes. Fibro atelectatic opacity in the right middle lobe, lingula and bilateral lower lobes. Calcified plaques in the right upper and bilateral lower lobes and posteriorly. Minimal pleural effusions and atelectasis. Antibiotics. Monitor WBC count. Blood cultures show no growth. Continue bronchodilators as needed. Pain control. Avoid over-sedation. Incentive spirometry. IV fluids at 60 mL an hour. Monitor renal function. Monitor electrolytes. Supplement as necessary. Hyponatremia - Monitor sodium DVT prophylaxis Prognosis: Guarded given multiple comorbidities. Rest of plan per hospitalist and other consultants. Thank you Dr. Reed for allowing me to participate in this patient's care. Further recommendations will depend on patient's clinical course. Please do not hesitate to contact me if you have any questions or concerns. This medical document was created using an electronic medical record system with [employer] dictation system. Although this document has been carefully reviewed, there may still be some phonetic and typographical errors. These areas are purely typographical due to imperfections of the software programs, and do not reflect any compromise in the patient's medical care. Dietary Evaluation Review Comments: 1) Consider SORAIDA 1 pkt BID for wounds 2) Continue current plan of care Expected Outcomes/Goals: F/U in 3-5 days Plan discussed with: Patient, Other (JEANNINE Manuel) TORITO URBAN MD Sep 22, 2024 21:12
[2024-09-23] VITALS (16 sets, daily range): BP systolic 102–144; BP diastolic 46–60; PULSE 81–93; RESP 18–24; TEMP 97.8–98.4; O2SAT 96–100
[2024-09-23] MEDS: POTASSIUM CHL 10 Meq TABLET PO SCH (09:09)
[2024-09-23 09:38] LABS: Chloride 95 mmol/L (98-107); Potassium 3.8 mmol/L (3.5-5.1); Sodium 135 mmol/L (136-145)
[2024-09-23 09:39] LABS: Anion Gap 0 (5-15); Calcium 8.2 mg/dL (8.7-10.4); Carbon Dioxide 40 mmol/L (20-31)
[2024-09-23 09:44] LABS: BUN/Creatinine Ratio 42.4 (10.0-20.0); Blood Urea Nitrogen 14 mg/dL (9-23); Glucose 87 mg/dL (74-106)
[2024-09-23 09:48] LABS: Basophils # (auto) 0 10 ^3/uL (0-0.2); Basophils % (auto) 0.2 % (0.0-2.0); Eosinophils # (auto) 0 10 ^3/uL (0-0.8); Eosinophils % (auto) 0.2 % (0.0-7.0); Hemoglobin 9.3 g/dL (13.5-17.5); Lymphocytes # (auto) 0.3 10 ^3/uL (0.4-5.4); Neutrophils # (auto) 15.6 10 ^3/uL (1.6-8.6)
[2024-09-23 09:49] LABS: Hematocrit 28.3 % (41.0-53.0); Mean Corpuscular Hgb Conc. 32.8 g/dL (32.0-36.0); Mean Corpuscular Volume 91.5 fL (80.0-100.0); Monocytes # (auto) 0.5 10 ^3/uL (0-1.3); Neutrophils % (auto) 94.6 % (37.0-80.0); Platelet Count (auto) 553 10^3/uL (140-450); Red Blood Cells 3.09 10^6/uL (4.5-5.90); Red Cell Distribution Width 14.3 % (11.8-14.3); White Blood Cell 16.5 10^3/uL (4.4-10.8)
--- NOTE | 2024-09-23 10:53 | DVHPN2 ---
Subjective Patient more alert and oriented today. No respiratory distress noted Reviewed: Care Plan, H&P, Labs Changes from previous H/P or p: Changes Eyes: No Pain, No Vision change, No Conjunctivae inflammation, No Eyelid inflammation, No Other, No Redness ENT: No Ear pain, No Ear discharge, No Nose pain, No Nose discharge, No Nose congestion, No Mouth pain, No Mouth swelling, No Throat pain, No Throat swelling, No Other Cardiovascular: No Chest Pain, No Palpitations, No Orthopnea, No Paroxysmal Noc. Dyspnea, No Edema, No Lt Headedness, No Other Respiratory: No Cough, No Dry; Shortness of breath, SOB with excertion; No Wheezing, No Hemoptysis, No Pleuritic Pain, No Sputum; Other (SOB at rest) Gastrointestinal: Nausea; No Vomiting, No Abdominal Pain, No Diarrhea; C onstipation; No Melena, No Hematochezia; Other (Poor appetite) Genitourinary: No Dysuria, No Frequency, No Incontinence, No Hematuria, No Retention, No Other Musculoskeletal: No other, No neck pain, No shoulder pain, No arm pain, No back pain, No hand pain, No leg pain, No foot pain Skin: No Rash, No Lesions, No Jaundice, No Bruising, No Other Objective Vitals Vital Signs Date Time Temp Pulse Resp B/P (MAP) Pulse Ox O2 Delivery O2 Flow Rate FiO2 09/23/24 10:13 87 18 100 09/23/24 10:03 Simple Mask* 6 50 09/23/24 09:00 98.4 102/54 (70) 98.4 Intake/Output Intake and Output 09/23/24 07:00 Intake Total 810 ml Output Total 2900 ml Balance -2090 ml Intake Oral 510 ml IV Total 300 ml Output Urine Total 2900 ml General Appearance: Alert, Oriented X3, Cooperative, mild distress HEENT: Atraumatic, PERRLA Lungs: Clear to auscultation Cardiovascular: Normal S1, Normal S2 Abdomen: Normal bowel sounds Genitourinary: No Apparent Abnormalities Musculoskeletal: Normal sensory function, Normal motor function Neuro: Normal speech, Cranial nerves 3-12 NL Skin: Dry, Intact Psych/Mental Status: Mental status NL, Mood NL Medications Current Medications Medications Dose Ordered Sig/Cathy Route Start Time Stop Time Status Last Admin Dose Admin Albuterol 2.5 mg Q4HPRN PRN NEB 09/10/24 06:30 09/22/24 02:04 2.5 MG Ipratropium [place] 0.5 mg Q4HPRN PRN NEB 09/10/24 06:30 09/22/24 02:04 0.5 MG Vancomycin HCl 0 ml @ 0 mls/hr UD IV 09/10/24 06:30 Cancel Ondansetron HCl 4 mg Q4HP PRN IV 09/10/24 06:30 Docusate Sodium 100 mg BIDPRN PRN PO 09/10/24 06:30 09/11/24 09:53 100 MG Acetaminophen 650 mg Q6HP PRN PO 09/10/24 06:30 09/22/24 08:01 650 MG Nitroglycerin 0.4 mg Q5MINP PRN SL 09/10/24 06:30 Enoxaparin Sodium 70 mg Q12HR SC 09/13/24 22:00 UNV Metronidazole 100 ml @ 100 mls/hr Q8HR IV 09/14/24 22:00 09/23/24 06:43 100 MLS/HR Levofloxacin/ Dextrose 100 ml @ 100 mls/hr DAILY IV 09/16/24 10:00 09/23/24 09:09 100 MLS/HR Enteral Nutritional Formula 240 ml TIDWM PO 09/16/24 18:00 09/23/24 08:00 240 ML Nystatin 5 ml QID MT 09/17/24 18:00 09/23/24 06:34 5 ML Albuterol 2.5 mg Q4HWA [facility] 09/17/24 18:00 09/23/24 10:03 2.5 MG Ipratropium [place] 0.5 mg Q4HWA [facility] 09/17/24 18:00 09/23/24 10:03 0.5 MG Melatonin 10 mg QHSP PRN PO 09/20/24 15:15 09/22/24 02:03 10 MG Furosemide 40 mg BIDD IV 09/22/24 18:00 09/23/24 06:39 40 MG Potassium Chloride 10 meq DAILY PO 09/23/24 10:00 09/23/24 09:09 10 MEQ Enalaprilat 1.25 mg Q6HP PRN IV 09/22/24 13:00 Morphine Sulfate 1 mg Q4HP PRN IV 09/22/24 14:15 09/22/24 23:42 1 MG Micafungin Sodium 100 mg/Sodium Chloride 100 ml @ 100 mls/hr DAILY IV 09/23/24 10:00 Laboratory Results Laboratory Tests 09/23/24 05:40 Chemistry Test 09/23/24 05:40 Calcium Level 8.2 mg/dL (8.7-10.4) L Urinalysis Test 09/10/24 04:47 09/14/24 08:00 Urine Color Yellow (Yellow) Urine Clarity Clear (Clear) Urine pH 6.0 (5.0-9.0) Urine Specific [place] 1.031 (1.001-1.035) Urine Protein 1+ (Negative) H Urine Ketones Trace (Negative) Urine Blood Negative /uL (Negative) Urine Nitrite Negative (Negative) Urine Bilirubin Negative (Negative) Urine Urobilinogen 2 mg/dL (Negative) H Urine Leukocyte Esterase Negative /uL (Negative) Urine RBC 3 /hpf (0 - 3) Urine WBC 3 /hpf (0 - 3) Urine Squamous Epithelial Cells None seen /hpf (<5) Urine Bacteria None seen /hpf (None Seen) Urine Mucus Few (None Seen) Urine Glucose Normal mg/dL (Normal) Urine Osmolality 405 mOsm/kg Urine Creatinine 40.31 mg/dL (30.0-125.0) Urine Protein/Creatinine Ratio 0.54 Urine Sodium 24 mmol/L (40-220) L Urine Total Protein 21.7 mg/dL (1-14) H Blood Gas Results Test 09/22/24 11:28 Arterial Blood pH 7.435 (7.350-7.450) FiO2 % 40.0 Microbiology Microbiology Date/Time Source Procedure Growth Status 09/18/24 14:50 Blood Blood Culture - Preliminary NO GROWTH AFTER 72 HOURS OF INCUBATION. Resulted 09/16/24 20:50 Sputum Gram Stain - Final Complete 09/16/24 20:50 Respiratory Culture - Final Presumptive Desirae albicans Complete 09/13/24 09:50 Nose MRSA Screen - Final Complete Labs and/or images reviewed: Labs reviewed by me, Image(s) reviewed by me Assessment/Plan Assessment/Plan Plan: -sepsis -pneumonia -necrotizing lymph node -bullous emphysema -acute hypoxic respiratory failure -nicotine dependence -atelectasis -hyponatremia -pulmonary mass, rule out CA -DVT to cephalic vein Plan: Events: Improved clinical status. -restart Eliquis -biopsy results pending -ID consultation : Recommendations reviewed -pulmonary consultation : Recommendations review -continue current antibiotic therapy : Flagyl, Levaquin,nystatin swish and swallow as well as IV Diflucan -change to pureed diet with supplementation -bronchodilators -PUD, DVT prophylaxis -repeat labs in a.m. Total time spent with patient discussing and formulating plan of care: 35 minutes. This medical document was created using an electronic medical record system with [employer] dictation system. Although this document has been carefully reviewed, there may still be some phonetic and typographical errors. These areas are purely typographical due to imperfections of the software programs, and do not reflect any compromise in the patient's medical care. Plan discussed with: Patient, Other (RN) My Orders Orders - KYUNG KENDRICK NP Procedure Category Date Status Time Oxygen By High-Flow RT 09/22/24 Transmitted 11:17 Furosemide Injection PHA 09/22/24 In Process (Lasix Injection) 18:00 Potassium Er Tablet PHA 09/23/24 In Process (Klor-Con Tablet) 10:00 Enalaprilat Injection PHA 09/22/24 In Process (Vasotec Injection 13:00 Morphine Sulfate PHA 09/22/24 In Process Injection 14:15 Date of Service: Sep 23, 2024 Billing Provider: KYUNG KENDRICK NP Common Visit Codes: 69495-EYBANUPEDE INP/OBS CARE(HIGH) KYUNG KENDRICK NP Sep 23, 2024 10:53
[2024-09-23] MEDS: MICAFUNGIN SODIUM 100 MG in SODIUM CHL 0.9% 100 ML IV SCH (11:38)
[2024-09-23 11:45] LABS: Basophils # (auto) 0 10 ^3/uL (0-0.2); Eosinophils # (auto) 0 10 ^3/uL (0-0.8)
--- NOTE | 2024-09-23 11:49 | DVHPN2 ---
Consult Progress Note Date Seen: Sep 22, 2024 Subjective Patient reports: Feels worse (a bit more hypoxic and weak today , endorsing some back pain after procedure yesterday. Now on 6 liters nasal canula , producin ggood amount of urine, coughing when is on nebulizer treatments ) Objective vital signs Vital Sign Date Time Temp Pulse Resp B/P (MAP) Pulse Ox O2 Delivery O2 Flow Rate FiO2 09/23/24 10:13 87 18 100 09/23/24 10:03 Simple Mask* 6 50 09/23/24 09:00 98.4 102/54 (70) 98.4 Total Intake and Output 09/22/24 09/22/24 09/23/24 15:00 23:00 07:00 Intake Total 200 ml 310 ml 300 ml Output Total 1550 ml 1350 ml Balance 200 ml -1240 ml -1050 ml medications Current Medications Medications Dose Ordered Sig/Cathy Route Start Time Stop Time Status Last Admin Dose Admin Albuterol 2.5 mg Q4HPRN PRN NEB 09/10/24 06:30 09/22/24 02:04 2.5 MG Ipratropium [place] 0.5 mg Q4HPRN PRN NEB 09/10/24 06:30 09/22/24 02:04 0.5 MG Vancomycin HCl 0 ml @ 0 mls/hr UD IV 09/10/24 06:30 Cancel Ondansetron HCl 4 mg Q4HP PRN IV 09/10/24 06:30 Docusate Sodium 100 mg BIDPRN PRN PO 09/10/24 06:30 09/11/24 09:53 100 MG Acetaminophen 650 mg Q6HP PRN PO 09/10/24 06:30 09/22/24 08:01 650 MG Nitroglycerin 0.4 mg Q5MINP PRN SL 09/10/24 06:30 Enoxaparin Sodium 70 mg Q12HR SC 09/13/24 22:00 UNV Metronidazole 100 ml @ 100 mls/hr Q8HR IV 09/14/24 22:00 09/23/24 06:43 100 MLS/HR Levofloxacin/ Dextrose 100 ml @ 100 mls/hr DAILY IV 09/16/24 10:00 09/23/24 09:09 100 MLS/HR Enteral Nutritional Formula 240 ml TIDWM PO 09/16/24 18:00 09/23/24 08:00 240 ML Nystatin 5 ml QID MT 09/17/24 18:00 09/23/24 06:34 5 ML Albuterol 2.5 mg Q4HWA [facility] 09/17/24 18:00 09/23/24 10:03 2.5 MG Ipratropium [place] 0.5 mg Q4HWA NEB 09/17/24 18:00 09/23/24 10:03 0.5 MG Melatonin 10 mg QHSP PRN PO 09/20/24 15:15 09/22/24 02:03 10 MG Furosemide 40 mg BIDD IV 09/22/24 18:00 09/23/24 06:39 40 MG Potassium Chloride 10 meq DAILY PO 09/23/24 10:00 09/23/24 09:09 10 MEQ Enalaprilat 1.25 mg Q6HP PRN IV 09/22/24 13:00 Morphine Sulfate 1 mg Q4HP PRN IV 09/22/24 14:15 09/22/24 23:42 1 MG Micafungin Sodium 100 mg/Sodium Chloride 100 ml @ 100 mls/hr DAILY IV 09/23/24 10:00 Apixaban 5 mg BID PO 09/23/24 22:00 PHYSICAL EXAM: - GENERAL: Alert and oriented x 3. No acute distress. Well-nourished. - EYES: EOMI. Anicteric. - HENT: Moist mucous membranes. No scleral icterus. No cervical lymphadenopathy. - LUNGS: Clear to auscultation bilaterally. No accessory muscle use. - CARDIOVASCULAR: Regular rate and rhythm. No murmur. No JVD. - ABDOMEN: Soft, non-tender and non-distended. No palpable masses. - EXTREMITIES: No edema. Non-tender.?SKIN: No rashes or lesions. Warm. - NEUROLOGIC: No focal neurological deficits. CN II-XII grossly intact, but not individually tested. - PSYCHIATRIC: Cooperative. Appropriate mood and affect. laboratory and microbiology Laboratory Tests 09/23/24 05:40 Test 09/23/24 05:40 Range/Units Serum Glucose 87 74-106 mg/dL Problem List/Assessment/Plan Problems(with codes): (1) ASTHMA, CHRONIC OBSTRUCTIVE W ASTHMATICUS (2) SHORTNESS OF BREATH (3) COPD (chronic obstructive pulmonary disease) (4) Pneumonia (5) Status asthmaticus (6) Leukocytosis, unspecified (7) Hypertension (8) Hyponatremia (9) Multifocal pneumonia (10) Generalized weakness Problem List/Assessment/Plan ID Problem List: -- Generalized weakness -- Fall with head injury -- Multifocal pneumonia -- Leukocytosis -- COPD exacerbation -- Hyponatremia -- Stage 2 sacral ulcers -- Tobacco use disorder Assessment This is a 79 y.o. male with a past medical history of asthma, COPD, and depression, who presents with generalized weakness and a fall resulting in a forehead abrasion. He has been experiencing loss of appetite, no bowel movements, and shortness of breath. Laboratory findings show leukocytosis with a WBC count of 35.6??10?/L, thrombocytosis with platelets at 539??10?/L, hyponatremia with sodium at 120?mmol/L, BUN of 22?mg/dL, creatinine of 0.6?mg/dL, glucose of 102?mg/dL, lactic acid of 1.5?mmol/L, and hemoglobin of 13.7?g/dL. CT head showed no acute abnormality. Chest CT revealed thyromegaly and extensive alveolar and parenchymal infiltrates in both lungs, seen in the right middle lobe, lingula, and both lower lobes. He was started empirically on vancomycin and ceftriaxone; azithromycin was later added. The patient has stage 2 sacral ulcers, non-purulent and non-eroded. 09/13: On imaging his doppler lower extemity ultrasound shows a nonocclusive thrombo scene in the proximal left superficial fomoral vein. CT of lungs which showed no pulmonary embolism. diffuse abnormal tissue density in posterior media steinum extened from the upper thorax to diaphragmatic hiatus with small air bubbles thats increased in size compared to last exam, which could represent nectrotic adenopathy abscess or esophageal injury or rupture. component on the left at the diaphragmatic hiatus is recommended , smoking related lung disease , patchy eclecticism consolidation. 09/14: white count remains elevated at 33. Dr choi from oncology saw patinet and suggent proliferative disorder is a possiblility but will asses after antibiotics, as well as consider a biopsy after a few weeks. MRSA nares came negative. 09/15: white count is slowing coming down and a backorder of levofloxacin 09/16: white count is slowly downtrending now at 28, 2 liters nasal canula 09/17: Patient was able to produce and induced sputum sample and so far results are with no growth 09/21: White count continues to downtrend now at 13 09/22: white count is 17.2 , chest xray shows stable mass like opacities in both lungs , had a biopsy done of a left pair of veterebral mass , 5 core biopsies were obtained Plan: - if cough and hypoxia persist over the next 24 hours or worsen recommend sputum cultures and will empirically advance antibiotics to meropenum , can hold off for now and continue levofloxacin - Stop fluconazole as patient is on levofloxacin and could prolong patients QTC on EKG and contribute to worsening tachycardia and hypoxia , can use micafungin instead - Check EKG for QTC - low suspicion that masses are due to fungal infection but can check for serologies - follow up on pathology results for the biopsy specimen of mass in lungs -- Status post lymph node biopsy will follow up on pathology results - If white count continues to downtrend recommend discharging patient on 2 weeks of levofloxacin and following up outpatient -- continue 500 milligrans IV of levofloxacin -- will fu on sputum culture -- patient started on eliquis for DVT for 3 months -- another 2 weeks of antibiotic use for presumed pneumonia -- patient should follow up with infectious disease for chest Ct to see if necrotic lymph node resolved -- outpatient follow up with hematology and oncology -- Implement wound care for stage 2 sacral ulcers. -- Monitor vital signs and oxygen saturation. Isolation Precautions: Standard Plan discussed with: Other Dietary Evaluation Review Comments: 1) Consider SORAIDA 1 pkt BID for wounds 2) Continue current plan of care Expected Outcomes/Goals: F/U in 3-5 days SHELBY OQUENDO MD Sep 23, 2024 11:49
[2024-09-23 12:01] LABS: Basophils % (auto) 0.1 % (0.0-2.0); Eosinophils % (auto) 0.2 % (0.0-7.0); Hematocrit 35.1 % (41.0-53.0); Hemoglobin 10.6 g/dL (13.5-17.5); Lymphocytes % (auto) 5.3 % (10.0-50.0); Mean Corpuscular Hemoglobin 29.9 pg (28.0-32.0); Mean Corpuscular Hgb Conc. 30.3 g/dL (32.0-36.0); Mean Corpuscular Volume 98.7 fL (80.0-100.0); Monocytes # (auto) 1.2 10 ^3/uL (0-1.3); Monocytes % (auto) 6.4 % (0.0-12.0); Neutrophils # (auto) 16.2 10 ^3/uL (1.6-8.6); Platelet Count (auto) 480 10^3/uL (140-450); Red Blood Cells 3.55 10^6/uL (4.5-5.90); Red Cell Distribution Width 15.4 % (11.8-14.3); White Blood Cell 18.4 10^3/uL (4.4-10.8)
--- NOTE | 2024-09-23 20:59 | DVHPN2 ---
Progress Note - Dictate Date Seen: Sep 23, 2024 Medical Necessity Reason Pt with a Central, PICC or Fol: Yes The following are medically ne: Lara Catheter Reason for lara catheter: Strict I&O Subjective Patient seen and examined at bedside. Remains on supplemental oxygen Overnight events reviewed. vital signs Vital Sign Date Time Temp Pulse Resp B/P (MAP) Pulse Ox O2 Delivery O2 Flow Rate FiO2 09/23/24 18:20 89 18 98 09/23/24 18:14 Mask 6.0 09/23/24 18:14 50 09/23/24 17:18 110/46 09/23/24 17:00 98.3 98.3 Total Intake and Output 09/22/24 09/22/24 09/23/24 15:00 23:00 07:00 Intake Total 200 ml 310 ml 300 ml Output Total 1550 ml 1350 ml Balance 200 ml -1240 ml -1050 ml medications Current Medications Medications Dose Ordered Sig/Cathy Route Start Time Stop Time Status Last Admin Dose Admin Albuterol 2.5 mg Q4HPRN PRN NEB 09/10/24 06:30 09/22/24 02:04 2.5 MG Ipratropium [place] 0.5 mg Q4HPRN PRN NEB 09/10/24 06:30 09/22/24 02:04 0.5 MG Vancomycin HCl 0 ml @ 0 mls/hr UD IV 09/10/24 06:30 Cancel Ondansetron HCl 4 mg Q4HP PRN IV 09/10/24 06:30 Docusate Sodium 100 mg BIDPRN PRN PO 09/10/24 06:30 09/11/24 09:53 100 MG Acetaminophen 650 mg Q6HP PRN PO 09/10/24 06:30 09/22/24 08:01 650 MG Nitroglycerin 0.4 mg Q5MINP PRN SL 09/10/24 06:30 Enoxaparin Sodium 70 mg Q12HR SC 09/13/24 22:00 UNV Metronidazole 100 ml @ 100 mls/hr Q8HR IV 09/14/24 22:00 09/23/24 13:39 100 MLS/HR Levofloxacin/ Dextrose 100 ml @ 100 mls/hr DAILY IV 09/16/24 10:00 09/23/24 09:09 100 MLS/HR Enteral Nutritional Formula 240 ml TIDWM PO 09/16/24 18:00 09/23/24 18:22 240 ML Nystatin 5 ml QID MT 09/17/24 18:00 09/23/24 17:17 5 ML Albuterol 2.5 mg Q4HWA NEB 09/17/24 18:00 09/23/24 18:14 2.5 MG Ipratropium [place] 0.5 mg Q4HWA NEB 09/17/24 18:00 09/23/24 18:13 0.5 MG Melatonin 10 mg QHSP PRN PO 09/20/24 15:15 09/22/24 02:03 10 MG Furosemide 40 mg BIDD IV 09/22/24 18:00 09/23/24 17:18 40 MG Potassium Chloride 10 meq DAILY PO 09/23/24 10:00 09/23/24 09:09 10 MEQ Enalaprilat 1.25 mg Q6HP PRN IV 09/22/24 13:00 Morphine Sulfate 1 mg Q4HP PRN IV 09/22/24 14:15 09/22/24 23:42 1 MG Micafungin Sodium 100 mg/Sodium Chloride 100 ml @ 100 mls/hr DAILY IV 09/23/24 10:00 09/23/24 11:38 100 MLS/HR Apixaban 5 mg BID PO 09/23/24 22:00 objective Gen.: Patient lying in bed in no apparent distress. On supplemental oxygen. Head: Normocephalic, atraumatic. Eyes: EOMI/PERRLA. Ears: Normal hearing. Normal anatomy. Neck/trachea: Trachea midline, supple. Nose: Normal external anatomy. Mouth: Moist mucous membranes. Chest: Decreased air entry bilaterally. No wheezing or rhonchi. Positive crackles. Cardiovascular: Positive S1, positive S2. Regular rate and rhythm. Abdomen: Positive bowel sounds in all 4 quadrants. Soft, non-tender, non- distended. : Deferred. Rectal: Deferred. Skin: Warm, dry. Intact. Extremities: 2+ radial pulses bilaterally. No lower extremity edema. Neuro: Awake, alert, oriented x3. No gross motor or sensory deficits. Cranial nerves II through XII intact. Gait not assessed. laboratory and microbiology Laboratory Tests 09/23/24 11:21 09/23/24 05:40 Test 09/23/24 05:40 Range/Units Serum Glucose 87 74-106 mg/dL Assessment/Plan Impression: Acute hypoxic respiratory failure Pneumonia COPD Emphysema , paraseptal and centrilobular Fibroid atelectatic opacities in the right middle lobe, lingula and bilateral lower lobes. Calcified pleural plaques in the right upper lobe and posterior aspects of the lower lobes bilaterally Pleural effusions, Atelectasis Hyponatremia Events: Remains on supplemental O2 at 6 LPM simple mask Taper O2 as tolerated Incentive spirometry Continue bronchodilators PRN. Continue antibiotics - Levaquin and Flagyl. Continue antifungal. Blood cultures show no growth after 5 days. Head of bed elevation Aspiration precautions Continue diuresis w/ Lasix BID Monitor renal function. Monitor ins and outs Potassium supplementation Lara d/t urinary retention. HERSON resolved after Lara placement - HERSON likely due to urine retention. Labs and imaging reviewed. Rest of plan as noted below. Plan: Supplemental oxygen Keep O2 saturation above 92% CT chest report and images reviewed. Emphysematous changes. Fibro atelectatic opacity in the right middle lobe, lingula and bilateral lower lobes. Calcified plaques in the right upper and bilateral lower lobes and posteriorly. Minimal pleural effusions and atelectasis. Antibiotics. Monitor WBC count. Blood cultures show no growth. Continue bronchodilators as needed. Pain control. Avoid over-sedation. Incentive spirometry. IV fluids at 60 mL an hour. Monitor renal function. Monitor electrolytes. Supplement as necessary. Hyponatremia - Monitor sodium DVT prophylaxis Prognosis: Guarded given multiple comorbidities. Rest of plan per hospitalist and other consultants. Thank you Dr. Reed for allowing me to participate in this patient's care. Further recommendations will depend on patient's clinical course. Please do not hesitate to contact me if you have any questions or concerns. This medical document was created using an electronic medical record system with [employer] system. Although this document has been carefully reviewed, there may still be some phonetic and typographical errors. These areas are purely typographical due to imperfections of the software programs, and do not reflect any compromise in the patient's medical care. Dietary Evaluation Review Comments: 1) Consider SORAIDA 1 pkt BID for wounds 2) Continue current plan of care Expected Outcomes/Goals: F/U in 3-5 days Plan discussed with: Patient, Other (JEANNINE Cook) TORITO URBAN MD Sep 23, 2024 20:59
[2024-09-23] MEDS: APIXABAN 5 MG TAB PO SCH (21:41)
--- NOTE | 2024-09-23 22:11 | DVHPN2 ---
Consult Progress Note Date Seen: Sep 23, 2024 Subjective Patient reports: Feels worse (hypoxia has worsened to 6 liters nasal canula , not coughing but has a grogly airway clerance, crackles in lungs bilaterally with some coarse ronki on deep breaths ) Objective vital signs Vital Sign Date Time Temp Pulse Resp B/P (MAP) Pulse Ox O2 Delivery O2 Flow Rate FiO2 09/23/24 18:20 89 18 98 09/23/24 18:14 Mask 6.0 09/23/24 18:14 50 09/23/24 17:18 110/46 09/23/24 17:00 98.3 98.3 Total Intake and Output 09/22/24 09/22/24 09/23/24 15:00 23:00 07:00 Intake Total 200 ml 310 ml 300 ml Output Total 1550 ml 1350 ml Balance 200 ml -1240 ml -1050 ml medications Current Medications Medications Dose Ordered Sig/Cathy Route Start Time Stop Time Status Last Admin Dose Admin Albuterol 2.5 mg Q4HPRN PRN NEB 09/10/24 06:30 09/22/24 02:04 2.5 MG Ipratropium [place] 0.5 mg Q4HPRN PRN NEB 09/10/24 06:30 09/22/24 02:04 0.5 MG Vancomycin HCl 0 ml @ 0 mls/hr UD IV 09/10/24 06:30 Cancel Ondansetron HCl 4 mg Q4HP PRN IV 09/10/24 06:30 Docusate Sodium 100 mg BIDPRN PRN PO 09/10/24 06:30 09/11/24 09:53 100 MG Acetaminophen 650 mg Q6HP PRN PO 09/10/24 06:30 09/22/24 08:01 650 MG Nitroglycerin 0.4 mg Q5MINP PRN SL 09/10/24 06:30 Enoxaparin Sodium 70 mg Q12HR SC 09/13/24 22:00 UNV Levofloxacin/ Dextrose 100 ml @ 100 mls/hr DAILY IV 09/16/24 10:00 09/23/24 09:09 100 MLS/HR Enteral Nutritional Formula 240 ml TIDWM PO 09/16/24 18:00 09/23/24 18:22 240 ML Nystatin 5 ml QID MT 09/17/24 18:00 09/23/24 21:41 5 ML Albuterol 2.5 mg Q4HWA NEB 09/17/24 18:00 09/23/24 18:14 2.5 MG Ipratropium [place] 0.5 mg Q4HWA NEB 09/17/24 18:00 09/23/24 18:13 0.5 MG Melatonin 10 mg QHSP PRN PO 09/20/24 15:15 09/23/24 21:58 10 MG Furosemide 40 mg BIDD IV 09/22/24 18:00 09/23/24 17:18 40 MG Potassium Chloride 10 meq DAILY PO 09/23/24 10:00 09/23/24 09:09 10 MEQ Enalaprilat 1.25 mg Q6HP PRN IV 09/22/24 13:00 Morphine Sulfate 1 mg Q4HP PRN IV 09/22/24 14:15 09/22/24 23:42 1 MG Micafungin Sodium 100 mg/Sodium Chloride 100 ml @ 100 mls/hr DAILY IV 09/23/24 10:00 09/23/24 11:38 100 MLS/HR Apixaban 5 mg BID PO 09/23/24 22:00 09/23/24 21:41 5 MG Piperacillin Sod/ Tazobactam Sod 100 ml @ 25 mls/hr Q6HR IV 09/24/24 00:00 UNV PHYSICAL EXAM: - GENERAL: Alert and oriented x 3. No acute distress. Well-nourished. - EYES: EOMI. Anicteric. - HENT: Moist mucous membranes. No scleral icterus. No cervical lymphadenopathy. - LUNGS: Clear to auscultation bilaterally. No accessory muscle use. - CARDIOVASCULAR: Regular rate and rhythm. No murmur. No JVD. - ABDOMEN: Soft, non-tender and non-distended. No palpable masses. - EXTREMITIES: No edema. Non-tender.?SKIN: No rashes or lesions. Warm. - NEUROLOGIC: No focal neurological deficits. CN II-XII grossly intact, but not individually tested. - PSYCHIATRIC: Cooperative. Appropriate mood and affect laboratory and microbiology Laboratory Tests 09/23/24 11:21 09/23/24 05:40 Test 09/23/24 05:40 Range/Units Serum Glucose 87 74-106 mg/dL Problem List/Assessment/Plan Problems(with codes): (1) ASTHMA, CHRONIC OBSTRUCTIVE W ASTHMATICUS (2) SHORTNESS OF BREATH (3) COPD (chronic obstructive pulmonary disease) (4) Pneumonia (5) Status asthmaticus (6) Leukocytosis, unspecified (7) Hypertension (8) Hyponatremia (9) Multifocal pneumonia (10) Generalized weakness Problem List/Assessment/Plan ID Problem List: -- Generalized weakness -- Fall with head injury -- Multifocal pneumonia -- Leukocytosis -- COPD exacerbation -- Hyponatremia -- Stage 2 sacral ulcers -- Tobacco use disorder Assessment This is a 79 y.o. male with a past medical history of asthma, COPD, and depression, who presents with generalized weakness and a fall resulting in a forehead abrasion. He has been experiencing loss of appetite, no bowel movements, and shortness of breath. Laboratory findings show leukocytosis with a WBC count of 35.6??10?/L, thrombocytosis with platelets at 539??10?/L, hyponatremia with sodium at 120?mmol/L, BUN of 22?mg/dL, creatinine of 0.6?mg/dL, glucose of 102?mg/dL, lactic acid of 1.5?mmol/L, and hemoglobin of 13.7?g/dL. CT head showed no acute abnormality. Chest CT revealed thyromegaly and extensive alveolar and parenchymal infiltrates in both lungs, seen in the right middle lobe, lingula, and both lower lobes. He was started empirically on vancomycin and ceftriaxone; azithromycin was later added. The patient has stage 2 sacral ulcers, non-purulent and non-eroded. 09/13: On imaging his doppler lower extemity ultrasound shows a nonocclusive thrombo scene in the proximal left superficial fomoral vein. CT of lungs which showed no pulmonary embolism. diffuse abnormal tissue density in posterior media steinum extened from the upper thorax to diaphragmatic hiatus with small air bubbles thats increased in size compared to last exam, which could represent nectrotic adenopathy abscess or esophageal injury or rupture. component on the left at the diaphragmatic hiatus is recommended , smoking related lung disease , patchy eclecticism consolidation. 09/14: white count remains elevated at 33. Dr choi from oncology saw patinet and suggent proliferative disorder is a possiblility but will asses after antibiotics, as well as consider a biopsy after a few weeks. MRSA nares came negative. 09/15: white count is slowing coming down and a backorder of levofloxacin 09/16: white count is slowly downtrending now at 28, 2 liters nasal canula 09/17: Patient was able to produce and induced sputum sample and so far results are with no growth 09/21: White count continues to downtrend now at 13 09/22: white count is 17.2 , chest xray shows stable mass like opacities in both lungs , had a biopsy done of a left pair of veterebral mass , 5 core biopsies were obtained 09/23: white count is elevated at 18 , chest x-ray showed stable mass capacities throughout both lungs, patient is negative for HIV Plan: - stop levofloxacin and metronizol - Start zosyn given augmenten renal function , patient may better respond to a higher and more frequent does of antibiotics - if cough and hypoxia persist over the next 24 hours or worsen recommend sputum cultures and will empirically advance antibiotics to meropenum , can hold off for now and continue levofloxacin - low suspicion that masses are due to fungal infection but can check for serologies - follow up on pathology results for the biopsy specimen of mass in lungs -- Status post lymph node biopsy will follow up on pathology results - If white count continues to downtrend recommend discharging patient on 2 weeks of levofloxacin and following up outpatient -- will fu on sputum culture -- patient started on eliquis for DVT for 3 months -- another 2 weeks of antibiotic use for presumed pneumonia -- patient should follow up with infectious disease for chest Ct to see if necrotic lymph node resolved -- outpatient follow up with hematology and oncology -- Implement wound care for stage 2 sacral ulcers. -- Monitor vital signs and oxygen saturation. Isolation Precautions: Standard Plan discussed with: Other Dietary Evaluation Review Comments: 1) Consider SORAIDA 1 pkt BID for wounds 2) Continue current plan of care Expected Outcomes/Goals: F/U in 3-5 days SHELBY OQUENDO MD Sep 23, 2024 22:11
[2024-09-24] VITALS (18 sets, daily range): BP systolic 102–154; BP diastolic 46–83; PULSE 72–95; RESP 16–22; TEMP 97.5–98; O2SAT 90–100
[2024-09-24] MEDS: PIPERACILLIN-TAZO 4.5GM 100 ML IV SCH ×2 (01:33→20:56)
[2024-09-24] MEDS ORDERED: PIPERACILLIN-TAZO 4.5GM 100 ML IV SCH ×2 (06:00)
--- NOTE | 2024-09-24 06:03 | DVH ---
CHEST RADIOGRAPH Indication: chf Technique: Single frontal view of the chest was obtained Comparison: XY CHEST XRAY 1 VIEW on DOS: 09/22/24, XY CHEST PORTABLE on DOS: 09/19/24, XY CHEST MARCELLE BLE on DOS: 09/17/24 IMPRESSION:Pleural calcifications and parenchymal airspace opacities appear similar to prior examinat ion. Stable blunting of the costophrenic angles. Heart appears stable in size. No discrete pneumothor ax.
--- NOTE | 2024-09-24 13:43 | DVHPN2 ---
Reviewed: Care Plan, H&P, Labs Changes from previous H/P or p: No Changes Eyes: No Pain, No Vision change, No Conjunctivae inflammation, No Eyelid inflammation, No Other, No Redness ENT: No Ear pain, No Ear discharge, No Nose pain, No Nose discharge, No Nose congestion, No Mouth pain, No Mouth swelling, No Throat pain, No Throat swelling, No Other Cardiovascular: No Chest Pain, No Palpitations, No Orthopnea, No Paroxysmal Noc. Dyspnea, No Edema, No Lt Headedness, No Other Respiratory: No Cough, No Dry; Shortness of breath, SOB with excertion; No Wheezing, No Hemoptysis, No Pleuritic Pain, No Sputum; Other (SOB at rest) Gastrointestinal: Nausea; No Vomiting, No Abdominal Pain, No Diarrhea; C onstipation; No Melena, No Hematochezia; Other (Poor appetite) Genitourinary: No Dysuria, No Frequency, No Incontinence, No Hematuria, No Retention, No Other Musculoskeletal: No other, No neck pain, No shoulder pain, No arm pain, No back pain, No hand pain, No leg pain, No foot pain Skin: No Rash, No Lesions, No Jaundice, No Bruising, No Other Objective Vitals Vital Signs Date Time Temp Pulse Resp B/P (MAP) Pulse Ox O2 Delivery O2 Flow Rate FiO2 09/24/24 10:09 83 22 111/83 09/24/24 09:20 100 09/24/24 09:12 Mask 6.0 09/24/24 09:12 50 09/24/24 09:00 97.6 97.6 Intake/Output Intake and Output 09/24/24 06:59 Intake Total 1380 ml Output Total 1350 ml Balance 30 ml Intake Oral 880 ml IV Total 500 ml Output Urine Total 1350 ml General Appearance: Alert, Oriented X3, Cooperative, mild distress HEENT: Atraumatic, PERRLA Lungs: Clear to auscultation Cardiovascular: Normal S1, Normal S2 Abdomen: Normal bowel sounds Genitourinary: No Apparent Abnormalities Musculoskeletal: Normal sensory function, Normal motor function Neuro: Normal speech, Cranial nerves 3-12 NL Skin: Dry, Intact Psych/Mental Status: Mental status NL, Mood NL Medications Current Medications Medications Dose Ordered Sig/Cathy Route Start Time Stop Time Status Last Admin Dose Admin Albuterol 2.5 mg Q4HPRN PRN NEB 11/9/24 06:30 09/22/24 02:04 2.5 MG Ipratropium [place] 0.5 mg Q4HPRN PRN NEB 09/10/24 06:30 09/22/24 02:04 0.5 MG Vancomycin HCl 0 ml @ 0 mls/hr UD IV 09/10/24 06:30 Cancel Ondansetron HCl 4 mg Q4HP PRN IV 09/10/24 06:30 Docusate Sodium 100 mg BIDPRN PRN PO 09/10/24 06:30 09/11/24 09:53 100 MG Acetaminophen 650 mg Q6HP PRN PO 09/10/24 06:30 09/22/24 08:01 650 MG Nitroglycerin 0.4 mg Q5MINP PRN SL 09/10/24 06:30 Enoxaparin Sodium 70 mg Q12HR SC 09/13/24 22:00 UNV Enteral Nutritional Formula 240 ml TIDWM PO 09/16/24 18:00 09/24/24 08:00 240 ML Nystatin 5 ml QID MT 09/17/24 18:00 09/24/24 06:08 5 ML Albuterol 2.5 mg Q4HWA [facility] [place] 09/17/24 18:00 09/24/24 09:12 2.5 MG Ipratropium [place] 0.5 mg Q4HWA [facility] [place] 09/17/24 18:00 09/24/24 09:12 0.5 MG Melatonin 10 mg QHSP PRN PO 09/20/24 15:15 09/23/24 21:58 10 MG Furosemide 40 mg BIDD IV 09/22/24 18:00 09/24/24 06:16 40 MG Potassium Chloride 10 meq DAILY PO 09/23/24 10:00 09/24/24 09:34 10 MEQ Enalaprilat 1.25 mg Q6HP PRN IV 09/22/24 13:00 Morphine Sulfate 1 mg Q4HP PRN IV 09/22/24 14:15 09/24/24 10:09 1 MG Micafungin Sodium 100 mg/Sodium Chloride 100 ml @ 100 mls/hr DAILY IV 09/23/24 10:00 09/24/24 09:35 100 MLS/HR Apixaban 5 mg BID PO 09/23/24 22:00 09/24/24 09:34 5 MG Piperacillin Sod/ Tazobactam Sod 100 ml @ 25 mls/hr Q6HR IV 09/24/24 01:00 09/24/24 09:36 25 MLS/HR Laboratory Results Laboratory Tests 09/23/24 11:21 Chemistry Test 09/24/24 10:38 Calcium Level Pending Urinalysis Test 09/10/24 04:47 09/14/24 08:00 Urine Color Yellow (Yellow) Urine Clarity Clear (Clear) Urine pH 6.0 (5.0-9.0) Urine Specific [place] 1.031 (1.001-1.035) Urine Protein 1+ (Negative) H Urine Ketones Trace (Negative) Urine Blood Negative /uL (Negative) Urine Nitrite Negative (Negative) Urine Bilirubin Negative (Negative) Urine Urobilinogen 2 mg/dL (Negative) H Urine Leukocyte Esterase Negative /uL (Negative) Urine RBC 3 /hpf (0 - 3) Urine WBC 3 /hpf (0 - 3) Urine Squamous Epithelial Cells None seen /hpf (<5) Urine Bacteria None seen /hpf (None Seen) Urine Mucus Few (None Seen) Urine Glucose Normal mg/dL (Normal) Urine Osmolality 405 mOsm/kg Urine Creatinine 40.31 mg/dL (30.0-125.0) Urine Protein/Creatinine Ratio 0.54 Urine Sodium 24 mmol/L (40-220) L Urine Total Protein 21.7 mg/dL (1-14) H Microbiology Microbiology Date/Time Source Procedure Growth Status 09/18/24 14:50 Blood Blood Culture - Final NO GROWTH AFTER 5 DAYS OF INCUBATION. Complete 09/16/24 20:50 Sputum Gram Stain - Final Complete 09/16/24 20:50 Respiratory Culture - Final Presumptive Desirae albicans Complete 09/13/24 09:50 Nose MRSA Screen - Final Complete Labs and/or images reviewed: Labs reviewed by me, Image(s) reviewed by me Assessment/Plan Assessment/Plan -covering for nurse practitioner Garry Crouch Sepsis secondary to pneumonia -necrotizing lymph node -bullous emphysema -acute hypoxic respiratory failure -nicotine dependence -atelectasis -hyponatremia -pulmonary mass, rule out CA -DVT to cephalic vein Continue current management Time spent 55 minutes Plan discussed with: Patient Date of Service: Sep 24, 2024 Billing Provider: MAX RUIZ MD Common Visit Codes: [id number] INP/OBS CARE(HIGH) MAX RUIZ MD Sep 24, 2024 13:43
[2024-09-24 15:56] LABS: Chloride 89 mmol/L (98-107); Sodium 133 mmol/L (136-145)
[2024-09-24 15:59] LABS: Calcium 8.1 mg/dL (8.7-10.4)
[2024-09-24 16:04] LABS: Glucose 122 mg/dL (74-106)
[2024-09-24 16:26] LABS: Anion Gap 3.99999 (5-15); BUN/Creatinine Ratio 37.5 (10.0-20.0); Blood Urea Nitrogen 15 mg/dL (9-23); Potassium 3.5 mmol/L (3.5-5.1)
[2024-09-24 16:29] LABS: Carbon Dioxide > 40 mmol/L (20-31)
--- NOTE | 2024-09-24 22:28 | DVHPN2 ---
Consult Progress Note Date Seen: Sep 24, 2024 Subjective Patient reports: Other (a little hypotensive , BP is 103/58 and is on 6 liters nasal canula, coarse rhonki and the anterior ) Objective vital signs Vital Sign Date Time Temp Pulse Resp B/P (MAP) Pulse Ox O2 Delivery O2 Flow Rate FiO2 09/24/24 22:13 74 16 100 09/24/24 21:14 123/56 09/24/24 18:55 Mask 6.0 09/24/24 18:55 50 09/24/24 17:00 97.6 97.6 Total Intake and Output 09/23/24 09/23/24 09/24/24 15:00 23:00 07:00 Intake Total 300 ml 580 ml 500 ml Output Total 850 ml 500 ml Balance 300 ml -270 ml 0 ml medications Current Medications Medications Dose Ordered Sig/Cathy Route Start Time Stop Time Status Last Admin Dose Admin Albuterol 2.5 mg Q4HPRN PRN NEB 09/10/24 06:30 09/22/24 02:04 2.5 MG Ipratropium [place] 0.5 mg Q4HPRN PRN NEB 09/10/24 06:30 09/22/24 02:04 0.5 MG Vancomycin HCl 0 ml @ 0 mls/hr UD IV 09/10/24 06:30 Cancel Ondansetron HCl 4 mg Q4HP PRN IV 09/10/24 06:30 Docusate Sodium 100 mg BIDPRN PRN PO 09/10/24 06:30 09/11/24 09:53 100 MG Acetaminophen 650 mg Q6HP PRN PO 09/10/24 06:30 09/22/24 08:01 650 MG Nitroglycerin 0.4 mg Q5MINP PRN SL 09/10/24 06:30 Enoxaparin Sodium 70 mg Q12HR SC 09/13/24 22:00 UNV Enteral Nutritional Formula 240 ml TIDWM PO 09/16/24 18:00 09/24/24 18:00 240 ML Nystatin 5 ml QID MT 09/17/24 18:00 09/24/24 21:14 5 ML Albuterol 2.5 mg Q4HWA NEB 09/17/24 18:00 09/24/24 22:07 2.5 MG Ipratropium [place] 0.5 mg Q4HWA NEB 09/17/24 18:00 09/24/24 22:08 0.5 MG Melatonin 10 mg QHSP PRN PO 09/20/24 15:15 09/23/24 21:58 10 MG Furosemide 40 mg BIDD IV 09/22/24 18:00 09/24/24 18:16 40 MG Potassium Chloride 10 meq DAILY PO 09/23/24 10:00 09/24/24 09:34 10 MEQ Enalaprilat 1.25 mg Q6HP PRN IV 09/22/24 13:00 Morphine Sulfate 1 mg Q4HP PRN IV 09/22/24 14:15 09/24/24 21:14 1 MG Micafungin Sodium 100 mg/Sodium Chloride 100 ml @ 100 mls/hr DAILY IV 09/23/24 10:00 09/24/24 09:35 100 MLS/HR Apixaban 5 mg BID PO 09/23/24 22:00 09/24/24 21:14 5 MG Piperacillin Sod/ Tazobactam Sod 100 ml @ 25 mls/hr Q8H IV 09/24/24 20:00 09/24/24 20:56 25 MLS/HR PHYSICAL EXAM: - GENERAL: Alert and oriented x 3. No acute distress. Well-nourished. - EYES: EOMI. Anicteric. - HENT: Moist mucous membranes. No scleral icterus. No cervical lymphadenopathy. - LUNGS: Clear to auscultation bilaterally. No accessory muscle use. - CARDIOVASCULAR: Regular rate and rhythm. No murmur. No JVD. - ABDOMEN: Soft, non-tender and non-distended. No palpable masses. - EXTREMITIES: No edema. Non-tender.?SKIN: No rashes or lesions. Warm. - NEUROLOGIC: No focal neurological deficits. CN II-XII grossly intact, but not individually tested. - PSYCHIATRIC: Cooperative. Appropriate mood and affect laboratory and microbiology Laboratory Tests 09/24/24 15:36 09/23/24 11:21 Test 09/24/24 15:36 Range/Units Serum Glucose 122 H 74-106 mg/dL Problem List/Assessment/Plan Problems(with codes): (1) Generalized weakness (2) Multifocal pneumonia (3) Hyponatremia (4) Hypertension (5) Leukocytosis, unspecified (6) Status asthmaticus (7) Pneumonia (8) COPD (chronic obstructive pulmonary disease) (9) SHORTNESS OF BREATH (10) ASTHMA, CHRONIC OBSTRUCTIVE W ASTHMATICUS Problem List/Assessment/Plan ID Problem List: -- Generalized weakness -- Fall with head injury -- Multifocal pneumonia -- Leukocytosis -- COPD exacerbation -- Hyponatremia -- Stage 2 sacral ulcers -- Tobacco use disorder Assessment This is a 79 y.o. male with a past medical history of asthma, COPD, and depression, who presents with generalized weakness and a fall resulting in a forehead abrasion. He has been experiencing loss of appetite, no bowel movements, and shortness of breath. Laboratory findings show leukocytosis with a WBC count of 35.6??10?/L, thrombocytosis with platelets at 539??10?/L, hyponatremia with sodium at 120?mmol/L, BUN of 22?mg/dL, creatinine of 0.6?mg/dL, glucose of 102?mg/dL, lactic acid of 1.5?mmol/L, and hemoglobin of 13.7?g/dL. CT head showed no acute abnormality. Chest CT revealed thyromegaly and extensive alveolar and parenchymal infiltrates in both lungs, seen in the right middle lobe, lingula, and both lower lobes. He was started empirically on vancomycin and ceftriaxone; azithromycin was later added. The patient has stage 2 sacral ulcers, non-purulent and non-eroded. 09/13: On imaging his doppler lower extemity ultrasound shows a nonocclusive thrombo scene in the proximal left superficial fomoral vein. CT of lungs which showed no pulmonary embolism. diffuse abnormal tissue density in posterior media steinum extened from the upper thorax to diaphragmatic hiatus with small air bubbles thats increased in size compared to last exam, which could represent nectrotic adenopathy abscess or esophageal injury or rupture. component on the left at the diaphragmatic hiatus is recommended , smoking related lung disease , patchy eclecticism consolidation. 09/14: white count remains elevated at 33. Dr choi from oncology saw patinet and suggent proliferative disorder is a possiblility but will asses after antibiotics, as well as consider a biopsy after a few weeks. MRSA nares came negative. 09/15: white count is slowing coming down and a backorder of levofloxacin 09/16: white count is slowly downtrending now at 28, 2 liters nasal canula 09/17: Patient was able to produce and induced sputum sample and so far results are with no growth 09/21: White count continues to downtrend now at 13 09/22: white count is 17.2 , chest xray shows stable mass like opacities in both lungs , had a biopsy done of a left pair of veterebral mass , 5 core biopsies were obtained 09/23: white count is elevated at 18 , chest x-ray showed stable mass capacities throughout both lungs, patient is negative for HIV 09/24: Chest xray shows plural classifications and airspace oc[pacities appear to be similar to prior examination. stable blunting of constophrenic agles , appears overall stable but on more oxygen then what he came in with . getting bicarbonate greater than 40 Plan: - switched patient yesterday from levofloxacin and mentronidol to zosun to consolidate therapy - continue zosyn and micafungen , if no improvement in 24-48 hours will broaden to meropenum - Start zosyn given augmenten renal function , patient may better respond to a higher and more frequent does of antibiotics - if cough and hypoxia persist over the next 24 hours or worsen recommend sputum cultures and will empirically advance antibiotics to meropenum , can hold off for now and continue levofloxacin - low suspicion that masses are due to fungal infection but can check for serologies - follow up on pathology results for the biopsy specimen of mass in lungs -- Status post lymph node biopsy will follow up on pathology results - If white count continues to downtrend recommend discharging patient on 2 weeks of levofloxacin and following up outpatient -- will fu on sputum culture -- patient started on eliquis for DVT for 3 months -- another 2 weeks of antibiotic use for presumed pneumonia -- patient should follow up with infectious disease for chest Ct to see if necrotic lymph node resolved -- outpatient follow up with hematology and oncology -- Implement wound care for stage 2 sacral ulcers. -- Monitor vital signs and oxygen saturation. Isolation Precautions: Standard Plan discussed with: Other Dietary Evaluation Review Comments: 1) Consider SORAIDA 1 pkt BID for wounds 2) Continue current plan of care Expected Outcomes/Goals: F/U in 3-5 days SHELBY OQUENDO MD Sep 24, 2024 22:28
--- NOTE | 2024-09-24 22:30 | DVHPN2 ---
Progress Note - Dictate Date Seen: Sep 24, 2024 Medical Necessity Reason Pt with a Central, PICC or Fol: Yes The following are medically ne: Lara Catheter Reason for lara catheter: Strict I&O Subjective Patient seen and examined at bedside. Remains on supplemental oxygen Overnight events reviewed. vital signs Vital Sign Date Time Temp Pulse Resp B/P (MAP) Pulse Ox O2 Delivery O2 Flow Rate FiO2 09/24/24 22:13 74 16 100 09/24/24 21:14 123/56 09/24/24 18:55 Mask 6.0 09/24/24 18:55 50 09/24/24 17:00 97.6 97.6 Total Intake and Output 09/23/24 09/23/24 09/24/24 15:00 23:00 07:00 Intake Total 300 ml 580 ml 500 ml Output Total 850 ml 500 ml Balance 300 ml -270 ml 0 ml medications Current Medications Medications Dose Ordered Sig/Cathy Route Start Time Stop Time Status Last Admin Dose Admin Albuterol 2.5 mg Q4HPRN PRN NEB 09/10/24 06:30 09/22/24 02:04 2.5 MG Ipratropium [place] 0.5 mg Q4HPRN PRN NEB 09/10/24 06:30 09/22/24 02:04 0.5 MG Vancomycin HCl 0 ml @ 0 mls/hr UD IV 09/10/24 06:30 Cancel Ondansetron HCl 4 mg Q4HP PRN IV 09/10/24 06:30 Docusate Sodium 100 mg BIDPRN PRN PO 09/10/24 06:30 09/11/24 09:53 100 MG Acetaminophen 650 mg Q6HP PRN PO 09/10/24 06:30 09/22/24 08:01 650 MG Nitroglycerin 0.4 mg Q5MINP PRN SL 09/10/24 06:30 Enoxaparin Sodium 70 mg Q12HR SC 09/13/24 22:00 UNV Enteral Nutritional Formula 240 ml TIDWM PO 09/16/24 18:00 09/24/24 18:00 240 ML Nystatin 5 ml QID MT 09/17/24 18:00 09/24/24 21:14 5 ML Albuterol 2.5 mg Q4HWA NEB 09/17/24 18:00 09/24/24 22:07 2.5 MG Ipratropium [place] 0.5 mg Q4HWA NEB 09/17/24 18:00 09/24/24 22:08 0.5 MG Melatonin 10 mg QHSP PRN PO 09/20/24 15:15 09/23/24 21:58 10 MG Furosemide 40 mg BIDD IV 09/22/24 18:00 09/24/24 18:16 40 MG Potassium Chloride 10 meq DAILY PO 09/23/24 10:00 09/24/24 09:34 10 MEQ Enalaprilat 1.25 mg Q6HP PRN IV 09/22/24 13:00 Morphine Sulfate 1 mg Q4HP PRN IV 09/22/24 14:15 09/24/24 21:14 1 MG Micafungin Sodium 100 mg/Sodium Chloride 100 ml @ 100 mls/hr DAILY IV 09/23/24 10:00 09/24/24 09:35 100 MLS/HR Apixaban 5 mg BID PO 09/23/24 22:00 09/24/24 21:14 5 MG Piperacillin Sod/ Tazobactam Sod 100 ml @ 25 mls/hr Q8H IV 09/24/24 20:00 09/24/24 20:56 25 MLS/HR objective Gen.: Patient lying in bed in no apparent distress. On supplemental oxygen. Head: Normocephalic, atraumatic. Eyes: EOMI/PERRLA. Ears: Normal hearing. Normal anatomy. Neck/trachea: Trachea midline, supple. Nose: Normal external anatomy. Mouth: Moist mucous membranes. Chest: Decreased air entry bilaterally. No wheezing or rhonchi. Positive crackles. Cardiovascular: Positive S1, positive S2. Regular rate and rhythm. Abdomen: Positive bowel sounds in all 4 quadrants. Soft, non-tender, non- distended. : Deferred. Rectal: Deferred. Skin: Warm, dry. Intact. Extremities: 2+ radial pulses bilaterally. No lower extremity edema. Neuro: Awake, alert, oriented x3. No gross motor or sensory deficits. Cranial nerves II through XII intact. Gait not assessed. laboratory and microbiology Laboratory Tests 09/24/24 15:36 09/23/24 11:21 Test 09/24/24 15:36 Range/Units Serum Glucose 122 H 74-106 mg/dL Assessment/Plan Impression: Acute hypoxic respiratory failure Pneumonia COPD Emphysema , paraseptal and centrilobular Fibroid atelectatic opacities in the right middle lobe, lingula and bilateral lower lobes. Calcified pleural plaques in the right upper lobe and posterior aspects of the lower lobes bilaterally Pleural effusions, Atelectasis Hyponatremia Events: Remains on supplemental O2 at 6 LPM simple mask Taper O2 as tolerated Incentive spirometry Continue bronchodilators PRN. Continue antibiotics - Levaquin and Flagyl. Continue antifungal. Blood cultures show no growth after 5 days. On Nystatin Head of bed elevation Aspiration precautions Continue diuresis w/ Lasix BID Monitor renal function. Monitor ins and outs Potassium supplementation Lara d/t urinary retention. HERSON resolved after Laar placement - HERSON likely due to urine retention. Eliquis BID for DVT prophylaxis Labs and imaging reviewed. Rest of plan as noted below. Plan: Supplemental oxygen Keep O2 saturation above 92% CT chest report and images reviewed. Emphysematous changes. Fibro atelectatic opacity in the right middle lobe, lingula and bilateral lower lobes. Calcified plaques in the right upper and bilateral lower lobes and posteriorly. Minimal pleural effusions and atelectasis. Antibiotics. Monitor WBC count. Blood cultures show no growth. Continue bronchodilators as needed. Pain control. Avoid over-sedation. Incentive spirometry. IV fluids at 60 mL an hour. Monitor renal function. Monitor electrolytes. Supplement as necessary. Hyponatremia - Monitor sodium DVT prophylaxis Prognosis: Guarded given multiple comorbidities. Rest of plan per hospitalist and other consultants. Thank you Dr. Reed for allowing me to participate in this patient's care. Further recommendations will depend on patient's clinical course. Please do not hesitate to contact me if you have any questions or concerns. This medical document was created using an electronic medical record system with [employer] system. Although this document has been carefully reviewed, there may still be some phonetic and typographical errors. These areas are purely typographical due to imperfections of the software programs, and do not reflect any compromise in the patient's medical care. Dietary Evaluation Review Comments: 1) Consider SORAIDA 1 pkt BID for wounds 2) Continue current plan of care Expected Outcomes/Goals: F/U in 3-5 days Plan discussed with: Patient, Other (JEANNINE Aguilar) TORITO URBAN MD Sep 24, 2024 22:30
[2024-09-25] VITALS (20 sets, daily range): BP systolic 110–140; BP diastolic 53–75; PULSE 76–96; RESP 16–24; TEMP 97.5–98.1; O2SAT 90–100
[2024-09-25 06:30] LABS: Basophils # (auto) 0 10 ^3/uL (0-0.2); Basophils % (auto) 0.1 % (0.0-2.0); Eosinophils # (auto) 0.1 10 ^3/uL (0-0.8); Eosinophils % (auto) 0.6 % (0.0-7.0); Hemoglobin 10.4 g/dL (13.5-17.5); Lymphocytes # (auto) 0.5 10 ^3/uL (0.4-5.4); Monocytes # (auto) 0.7 10 ^3/uL (0-1.3); Neutrophils # (auto) 9.1 10 ^3/uL (1.6-8.6)
[2024-09-25 06:32] LABS: Hematocrit 30.4 % (41.0-53.0); Lymphocytes % (auto) 4.7 % (10.0-50.0); Mean Corpuscular Hemoglobin 30.8 pg (28.0-32.0); Mean Corpuscular Hgb Conc. 34.3 g/dL (32.0-36.0); Mean Corpuscular Volume 89.8 fL (80.0-100.0); Monocytes % (auto) 6.3 % (0.0-12.0); Neutrophils % (auto) 88.3 % (37.0-80.0); Platelet Count (auto) 665 10^3/uL (140-450); Red Blood Cells 3.39 10^6/uL (4.5-5.90); White Blood Cell 10.3 10^3/uL (4.4-10.8)
--- NOTE | 2024-09-25 11:35 | DVHPN2 ---
Reviewed: Care Plan, H&P, Labs Changes from previous H/P or p: No Changes Eyes: No Pain, No Vision change, No Conjunctivae inflammation, No Eyelid inflammation, No Other, No Redness ENT: No Ear pain, No Ear discharge, No Nose pain, No Nose discharge, No Nose congestion, No Mouth pain, No Mouth swelling, No Throat pain, No Throat swelling, No Other Cardiovascular: No Chest Pain, No Palpitations, No Orthopnea, No Paroxysmal Noc. Dyspnea, No Edema, No Lt Headedness, No Other Respiratory: No Cough, No Dry; Shortness of breath, SOB with excertion; No Wheezing, No Hemoptysis, No Pleuritic Pain, No Sputum; Other (SOB at rest) Gastrointestinal: Nausea; No Vomiting, No Abdominal Pain, No Diarrhea; C onstipation; No Melena, No Hematochezia; Other (Poor appetite) Genitourinary: No Dysuria, No Frequency, No Incontinence, No Hematuria, No Retention, No Other Musculoskeletal: No other, No neck pain, No shoulder pain, No arm pain, No back pain, No hand pain, No leg pain, No foot pain Skin: No Rash, No Lesions, No Jaundice, No Bruising, No Other Objective Vitals Vital Signs Date Time Temp Pulse Resp B/P (MAP) Pulse Ox O2 Delivery O2 Flow Rate FiO2 09/25/24 11:25 86 20 100 09/25/24 11:18 Nasal Cannula* 2 28 09/25/24 09:00 97.5 121/58 (79) 97.5 Intake/Output Intake and Output 09/25/24 07:00 Intake Total 1900 ml Output Total 1900 ml Balance 0 ml Intake Oral 1600 ml IV Total 300 ml Output Urine Total 1900 ml General Appearance: Alert, Oriented X3, Cooperative, mild distress HEENT: Atraumatic, PERRLA Lungs: Clear to auscultation Cardiovascular: Normal S1, Normal S2 Abdomen: Normal bowel sounds Genitourinary: No Apparent Abnormalities Musculoskeletal: Normal sensory function, Normal motor function Neuro: Normal speech, Cranial nerves 3-12 NL Skin: Dry, Intact Psych/Mental Status: Mental status NL, Mood NL Medications Current Medications Medications Dose Ordered Sig/Cathy Route Start Time Stop Time Status Last Admin Dose Admin Albuterol 2.5 mg Q4HPRN PRN NEB 09/10/24 06:30 09/22/24 02:04 2.5 MG Ipratropium [place] 0.5 mg Q4HPRN PRN NEB 09/10/24 06:30 09/22/24 02:04 0.5 MG Vancomycin HCl 0 ml @ 0 mls/hr UD IV 09/10/24 06:30 Cancel Ondansetron HCl 4 mg Q4HP PRN IV 09/10/24 06:30 Docusate Sodium 100 mg BIDPRN PRN PO 09/10/24 06:30 09/11/24 09:53 100 MG Acetaminophen 650 mg Q6HP PRN PO 09/10/24 06:30 09/22/24 08:01 650 MG Nitroglycerin 0.4 mg Q5MINP PRN SL 09/10/24 06:30 Enoxaparin Sodium 70 mg Q12HR SC 09/13/24 22:00 UNV Enteral Nutritional Formula 240 ml TIDWM PO 09/16/24 18:00 09/25/24 08:00 240 ML Nystatin 5 ml QID MT 09/17/24 18:00 09/25/24 05:54 5 ML Albuterol 2.5 mg Q4HWA NEB 09/17/24 18:00 09/25/24 11:17 2.5 MG Ipratropium [place] 0.5 mg Q4HWA NEB 09/17/24 18:00 09/25/24 11:15 0.5 MG Melatonin 10 mg QHSP PRN PO 09/20/24 15:15 09/23/24 21:58 10 MG Furosemide 40 mg BIDD IV 09/22/24 18:00 09/25/24 05:54 40 MG Potassium Chloride 10 meq DAILY PO 09/23/24 10:00 09/25/24 08:56 10 MEQ Enalaprilat 1.25 mg Q6HP PRN IV 09/22/24 13:00 Morphine Sulfate 1 mg Q4HP PRN IV 09/22/24 14:15 09/25/24 05:54 1 MG Micafungin Sodium 100 mg/Sodium Chloride 100 ml @ 100 mls/hr DAILY IV 09/23/24 10:00 09/25/24 08:57 100 MLS/HR Apixaban 5 mg BID PO 09/23/24 22:00 09/25/24 08:56 5 MG Piperacillin Sod/ Tazobactam Sod 100 ml @ 25 mls/hr Q8H IV 09/24/24 20:00 09/25/24 05:25 25 MLS/HR Laboratory Results Laboratory Tests 09/24/24 15:36 09/25/24 06:10 Chemistry Test 09/24/24 15:36 Calcium Level 8.1 mg/dL (8.7-10.4) L Urinalysis Test 09/10/24 04:47 09/14/24 08:00 Urine Color Yellow (Yellow) Urine Clarity Clear (Clear) Urine pH 6.0 (5.0-9.0) Urine Specific [place] 1.031 (1.001-1.035) Urine Protein 1+ (Negative) H Urine Ketones Trace (Negative) Urine Blood Negative /uL (Negative) Urine Nitrite Negative (Negative) Urine Bilirubin Negative (Negative) Urine Urobilinogen 2 mg/dL (Negative) H Urine Leukocyte Esterase Negative /uL (Negative) Urine RBC 3 /hpf (0 - 3) Urine WBC 3 /hpf (0 - 3) Urine Squamous Epithelial Cells None seen /hpf (<5) Urine Bacteria None seen /hpf (None Seen) Urine Mucus Few (None Seen) Urine Glucose Normal mg/dL (Normal) Urine Osmolality 405 mOsm/kg Urine Creatinine 40.31 mg/dL (30.0-125.0) Urine Protein/Creatinine Ratio 0.54 Urine Sodium 24 mmol/L (40-220) L Urine Total Protein 21.7 mg/dL (1-14) H Microbiology Microbiology Date/Time Source Procedure Growth Status 09/18/24 14:50 Blood Blood Culture - Final NO GROWTH AFTER 5 DAYS OF INCUBATION. Complete 09/16/24 20:50 Sputum Gram Stain - Final Complete 09/16/24 20:50 Respiratory Culture - Final Presumptive Desirae albicans Complete 09/13/24 09:50 Nose MRSA Screen - Final Complete Labs and/or images reviewed: Labs reviewed by me, Image(s) reviewed by me Assessment/Plan Assessment/Plan -covering for nurse practitioner Garry Crouch Sepsis secondary to pneumonia -necrotizing lymph node -bullous emphysema -acute hypoxic respiratory failure -nicotine dependence -atelectasis -hyponatremia -pulmonary mass, rule out CA -DVT to cephalic vein Continue current management Time spent 45 minutes Plan discussed with: Patient Date of Service: Sep 25, 2024 Billing Provider: MAX RUIZ MD Common Visit Codes: 44910-HQF/OBS DISCH DAY >30min MAX RUIZ MD Sep 25, 2024 11:35
--- NOTE | 2024-09-25 22:10 | DVHPN2 ---
Consult Progress Note Date Seen: Sep 25, 2024 Subjective Patient reports: Feels better (dramatic improvement from hypoxica now at 2 liters nasal canula and energy levels and strenght improved. pain levels are improved ) Objective vital signs Vital Sign Date Time Temp Pulse Resp B/P (MAP) Pulse Ox O2 Delivery O2 Flow Rate FiO2 09/25/24 21:08 96 17 122/58 09/25/24 21:00 98.1 92 98.1 09/25/24 18:20 Nasal Cannula* 3 32 Total Intake and Output 09/24/24 09/24/24 09/25/24 15:00 23:00 07:00 Intake Total 200 ml 800 ml 900 ml Output Total 900 ml 1000 ml Balance 200 ml -100 ml -100 ml medications Current Medications Medications Dose Ordered Sig/Cathy Route Start Time Stop Time Status Last Admin Dose Admin Albuterol 2.5 mg Q4HPRN PRN NEB 09/10/24 06:30 09/22/24 02:04 2.5 MG Ipratropium [place] 0.5 mg Q4HPRN PRN NEB 09/10/24 06:30 09/22/24 02:04 0.5 MG Vancomycin HCl 0 ml @ 0 mls/hr UD IV 09/10/24 06:30 Cancel Ondansetron HCl 4 mg Q4HP PRN IV 09/10/24 06:30 Docusate Sodium 100 mg BIDPRN PRN PO 09/10/24 06:30 09/11/24 09:53 100 MG Acetaminophen 650 mg Q6HP PRN PO 09/10/24 06:30 09/22/24 08:01 650 MG Nitroglycerin 0.4 mg Q5MINP PRN SL 09/10/24 06:30 Enoxaparin Sodium 70 mg Q12HR SC 09/13/24 22:00 UNV Enteral Nutritional Formula 240 ml TIDWM PO 09/16/24 18:00 09/25/24 18:00 240 ML Nystatin 5 ml QID MT 09/17/24 18:00 09/25/24 21:09 5 ML Albuterol 2.5 mg Q4HWA NEB 09/17/24 18:00 09/25/24 18:24 2.5 MG Ipratropium [place] 0.5 mg Q4HWA NEB 09/17/24 18:00 09/25/24 18:24 0.5 MG Melatonin 10 mg QHSP PRN PO 09/20/24 15:15 09/23/24 21:58 10 MG Furosemide 40 mg BIDD IV 09/22/24 18:00 09/25/24 18:00 40 MG Potassium Chloride 10 meq DAILY PO 09/23/24 10:00 09/25/24 08:56 10 MEQ Enalaprilat 1.25 mg Q6HP PRN IV 09/22/24 13:00 Morphine Sulfate 1 mg Q4HP PRN IV 09/22/24 14:15 09/25/24 21:08 1 MG Micafungin Sodium 100 mg/Sodium Chloride 100 ml @ 100 mls/hr DAILY IV 09/23/24 10:00 09/25/24 08:57 100 MLS/HR Apixaban 5 mg BID PO 09/23/24 22:00 09/25/24 21:08 5 MG Piperacillin Sod/ Tazobactam Sod 100 ml @ 25 mls/hr Q8H IV 09/24/24 20:00 09/25/24 20:25 25 MLS/HR PHYSICAL EXAM: - GENERAL: Alert and oriented x 3. No acute distress. Well-nourished. - EYES: EOMI. Anicteric. - HENT: Moist mucous membranes. No scleral icterus. No cervical lymphadenopathy. - LUNGS: Clear to auscultation bilaterally. No accessory muscle use. - CARDIOVASCULAR: Regular rate and rhythm. No murmur. No JVD. - ABDOMEN: Soft, non-tender and non-distended. No palpable masses. - EXTREMITIES: No edema. Non-tender.?SKIN: No rashes or lesions. Warm. - NEUROLOGIC: No focal neurological deficits. CN II-XII grossly intact, but not individually tested. - PSYCHIATRIC: Cooperative. Appropriate mood and affect laboratory and microbiology Laboratory Tests 09/25/24 06:10 09/24/24 15:36 Test 09/24/24 15:36 Range/Units Serum Glucose 122 H 74-106 mg/dL Problem List/Assessment/Plan Problems(with codes): (1) ASTHMA, CHRONIC OBSTRUCTIVE W ASTHMATICUS (2) SHORTNESS OF BREATH (3) COPD (chronic obstructive pulmonary disease) (4) Pneumonia (5) Status asthmaticus (6) Leukocytosis, unspecified (7) Hypertension (8) Hyponatremia (9) Multifocal pneumonia (10) Generalized weakness Problem List/Assessment/Plan ID Problem List: -- Generalized weakness -- Fall with head injury -- Multifocal pneumonia -- Leukocytosis -- COPD exacerbation -- Hyponatremia -- Stage 2 sacral ulcers -- Tobacco use disorder Assessment This is a 79 y.o. male with a past medical history of asthma, COPD, and depression, who presents with generalized weakness and a fall resulting in a forehead abrasion. He has been experiencing loss of appetite, no bowel movements, and shortness of breath. Laboratory findings show leukocytosis with a WBC count of 35.6??10?/L, thrombocytosis with platelets at 539??10?/L, hyponatremia with sodium at 120?mmol/L, BUN of 22?mg/dL, creatinine of 0.6?mg/dL, glucose of 102?mg/dL, lactic acid of 1.5?mmol/L, and hemoglobin of 13.7?g/dL. CT head showed no acute abnormality. Chest CT revealed thyromegaly and extensive alveolar and parenchymal infiltrates in both lungs, seen in the right middle lobe, lingula, and both lower lobes. He was started empirically on vancomycin and ceftriaxone; azithromycin was later added. The patient has stage 2 sacral ulcers, non-purulent and non-eroded. 09/13: On imaging his doppler lower extemity ultrasound shows a nonocclusive thrombo scene in the proximal left superficial fomoral vein. CT of lungs which showed no pulmonary embolism. diffuse abnormal tissue density in posterior media steinum extened from the upper thorax to diaphragmatic hiatus with small air bubbles thats increased in size compared to last exam, which could represent nectrotic adenopathy abscess or esophageal injury or rupture. component on the left at the diaphragmatic hiatus is recommended , smoking related lung disease , patchy eclecticism consolidation. 09/14: white count remains elevated at 33. Dr choi from oncology saw patinet and suggent proliferative disorder is a possiblility but will asses after antibiotics, as well as consider a biopsy after a few weeks. MRSA nares came negative. 09/15: white count is slowing coming down and a backorder of levofloxacin 09/16: white count is slowly downtrending now at 28, 2 liters nasal canula 09/17: Patient was able to produce and induced sputum sample and so far results are with no growth 09/21: White count continues to downtrend now at 13 09/22: white count is 17.2 , chest xray shows stable mass like opacities in both lungs , had a biopsy done of a left pair of veterebral mass , 5 core biopsies were obtained 09/23: white count is elevated at 18 , chest x-ray showed stable mass capacities throughout both lungs, patient is negative for HIV 09/24: Chest xray shows plural classifications and airspace oc[pacities appear to be similar to prior examination. stable blunting of constophrenic agles , appears overall stable but on more oxygen then what he came in with . getting bicarbonate greater than 40 09/25: white count is 10.3 , significant imrpovement Plan: - patient appears to be responding to therapy , continue Zosyn and micafungin - would not send patient home on levofloxacin as patient wasnt responding to this regimen , potentially related to patients augmented renal function , in this case patient would need continuous Zosyn via piccline for 2 weeks - will monitor for an addition 24 hours and plan to place piccline tomorrow - low suspicion that masses are due to fungal infection but can check for serologies - follow up on pathology results for the biopsy specimen of mass in lungs -- Status post lymph node biopsy will follow up on pathology results -- will fu on sputum culture -- patient started on eliquis for DVT for 3 months -- patient should follow up with infectious disease for chest Ct to see if necrotic lymph node resolved -- Implement wound care for stage 2 sacral ulcers. -- Monitor vital signs and oxygen saturation. Isolation Precautions: Standard Plan discussed with: Other Dietary Evaluation Review Comments: 1) Consider SORAIDA 1 pkt BID for wounds 2) Continue current plan of care Expected Outcomes/Goals: F/U in 3-5 days SHELBY OQUENDO MD Sep 25, 2024 22:10
--- NOTE | 2024-09-25 23:21 | DVHPN2 ---
Progress Note - Dictate Date Seen: Sep 25, 2024 Medical Necessity Reason Pt with a Central, PICC or Fol: Yes The following are medically ne: Lara Catheter Reason for lara catheter: Strict I&O Subjective Patient seen and examined at bedside. Remains on supplemental oxygen Overnight events reviewed. vital signs Vital Sign Date Time Temp Pulse Resp B/P (MAP) Pulse Ox O2 Delivery O2 Flow Rate FiO2 09/25/24 22:13 91 22 100 09/25/24 21:08 122/58 09/25/24 21:00 98.1 98.1 09/25/24 18:20 Nasal Cannula* 3 32 Total Intake and Output 09/24/24 09/24/24 09/25/24 15:00 23:00 07:00 Intake Total 200 ml 800 ml 900 ml Output Total 900 ml 1000 ml Balance 200 ml -100 ml -100 ml medications Current Medications Medications Dose Ordered Sig/Cathy Route Start Time Stop Time Status Last Admin Dose Admin Albuterol 2.5 mg Q4HPRN PRN NEB 09/10/24 06:30 09/22/24 02:04 2.5 MG Ipratropium [place] 0.5 mg Q4HPRN PRN NEB 09/10/24 06:30 09/22/24 02:04 0.5 MG Vancomycin HCl 0 ml @ 0 mls/hr UD IV 09/10/24 06:30 Cancel Ondansetron HCl 4 mg Q4HP PRN IV 09/10/24 06:30 Docusate Sodium 100 mg BIDPRN PRN PO 09/10/24 06:30 09/11/24 09:53 100 MG Acetaminophen 650 mg Q6HP PRN PO 09/10/24 06:30 09/22/24 08:01 650 MG Nitroglycerin 0.4 mg Q5MINP PRN SL 09/10/24 06:30 Enoxaparin Sodium 70 mg Q12HR SC 09/13/24 22:00 UNV Enteral Nutritional Formula 240 ml TIDWM PO 09/16/24 18:00 09/25/24 18:00 240 ML Nystatin 5 ml QID MT 09/17/24 18:00 09/25/24 21:09 5 ML Albuterol 2.5 mg Q4HWA NEB 09/17/24 18:00 09/25/24 22:12 2.5 MG Ipratropium [place] 0.5 mg Q4HWA NEB 09/17/24 18:00 09/25/24 22:12 0.5 MG Melatonin 10 mg QHSP PRN PO 09/20/24 15:15 09/23/24 21:58 10 MG Furosemide 40 mg BIDD IV 09/22/24 18:00 09/25/24 18:00 40 MG Potassium Chloride 10 meq DAILY PO 09/23/24 10:00 09/25/24 08:56 10 MEQ Enalaprilat 1.25 mg Q6HP PRN IV 09/22/24 13:00 Morphine Sulfate 1 mg Q4HP PRN IV 09/22/24 14:15 09/25/24 21:08 1 MG Micafungin Sodium 100 mg/Sodium Chloride 100 ml @ 100 mls/hr DAILY IV 09/23/24 10:00 09/25/24 08:57 100 MLS/HR Apixaban 5 mg BID PO 09/23/24 22:00 09/25/24 21:08 5 MG Piperacillin Sod/ Tazobactam Sod 100 ml @ 25 mls/hr Q8H IV 09/24/24 20:00 09/25/24 20:25 25 MLS/HR objective Gen.: Patient lying in bed in no apparent distress. On supplemental oxygen. Head: Normocephalic, atraumatic. Eyes: EOMI/PERRLA. Ears: Normal hearing. Normal anatomy. Neck/trachea: Trachea midline, supple. Nose: Normal external anatomy. Mouth: Moist mucous membranes. Chest: Decreased air entry bilaterally. No wheezing or rhonchi. Positive crackles. Cardiovascular: Positive S1, positive S2. Regular rate and rhythm. Abdomen: Positive bowel sounds in all 4 quadrants. Soft, non-tender, non- distended. : Deferred. Rectal: Deferred. Skin: Warm, dry. Intact. Extremities: 2+ radial pulses bilaterally. No lower extremity edema. Neuro: Awake, alert, oriented x3. No gross motor or sensory deficits. Cranial nerves II through XII intact. Gait not assessed. laboratory and microbiology Laboratory Tests 09/25/24 06:10 09/24/24 15:36 Test 09/24/24 15:36 Range/Units Serum Glucose 122 H 74-106 mg/dL Assessment/Plan Impression: Acute hypoxic respiratory failure Pneumonia COPD Emphysema , paraseptal and centrilobular Fibroid atelectatic opacities in the right middle lobe, lingula and bilateral lower lobes. Calcified pleural plaques in the right upper lobe and posterior aspects of the lower lobes bilaterally Pleural effusions, Atelectasis Hyponatremia Events: On supplemental O2 at 3 LPM NC Improved O2 requirements, down from 6 LPM simple mask Taper O2 as tolerated Wound care Incentive spirometry Continue bronchodilators PRN. Continue antibiotics - Zosyn. Continue antifungal. On Nystatin Follow up biopsy results in AM. Head of bed elevation Aspiration precautions Continue diuresis w/ Lasix BID Monitor renal function. Monitor ins and outs Potassium supplementation Lara d/t urinary retention. HERSON resolved after Lara placement - HERSON likely due to urine retention. Eliquis BID for DVT prophylaxis Labs and imaging reviewed. Rest of plan as noted below. Plan: Supplemental oxygen Keep O2 saturation above 92% CT chest report and images reviewed. Emphysematous changes. Fibro atelectatic opacity in the right middle lobe, lingula and bilateral lower lobes. Calcified plaques in the right upper and bilateral lower lobes and posteriorly. Minimal pleural effusions and atelectasis. Antibiotics. Monitor WBC count. Blood cultures show no growth. Continue bronchodilators as needed. Pain control. Avoid over-sedation. Incentive spirometry. IV fluids at 60 mL an hour. Monitor renal function. Monitor electrolytes. Supplement as necessary. Hyponatremia - Monitor sodium DVT prophylaxis Prognosis: Guarded given multiple comorbidities. Rest of plan per hospitalist and other consultants. Thank you Dr. Reed for allowing me to participate in this patient's care. Further recommendations will depend on patient's clinical course. Please do not hesitate to contact me if you have any questions or concerns. This medical document was created using an electronic medical record system with [employer] system. Although this document has been carefully reviewed, there may still be some phonetic and typographical errors. These areas are purely typographical due to imperfections of the software programs, and do not reflect any compromise in the patient's medical care. Dietary Evaluation Review Comments: 1) Consider SORAIDA 1 pkt BID for wounds 2) Continue current plan of care Expected Outcomes/Goals: F/U in 3-5 days Plan discussed with: Patient, Other (JEANNINE Aguilar) TORITO URBAN MD Sep 25, 2024 23:21
[2024-09-26] VITALS (20 sets, daily range): BP systolic 99–135; BP diastolic 48–67; PULSE 76–96; RESP 16–18; TEMP 97.5–98.4; O2SAT 91–100
[2024-09-26 07:35] LABS: Basophils # (auto) 0 10 ^3/uL (0-0.2); Basophils % (auto) 0.2 % (0.0-2.0); Eosinophils # (auto) 0.1 10 ^3/uL (0-0.8); Lymphocytes # (auto) 0.5 10 ^3/uL (0.4-5.4); Monocytes # (auto) 0.8 10 ^3/uL (0-1.3)
[2024-09-26 07:36] LABS: Eosinophils % (auto) 0.6 % (0.0-7.0); Hematocrit 31.5 % (41.0-53.0); Hemoglobin 10.5 g/dL (13.5-17.5); Lymphocytes % (auto) 4.8 % (10.0-50.0); Mean Corpuscular Hemoglobin 29.8 pg (28.0-32.0); Mean Corpuscular Hgb Conc. 33.2 g/dL (32.0-36.0); Mean Corpuscular Volume 89.5 fL (80.0-100.0); Monocytes % (auto) 7.1 % (0.0-12.0); Neutrophils # (auto) 9.3 10 ^3/uL (1.6-8.6); Neutrophils % (auto) 87.3 % (37.0-80.0); Platelet Count (auto) 731 10^3/uL (140-450); Red Blood Cells 3.52 10^6/uL (4.5-5.90); Red Cell Distribution Width 13.9 % (11.8-14.3); White Blood Cell 10.7 10^3/uL (4.4-10.8)
--- NOTE | 2024-09-26 10:08 | DVHPN2 ---
Subjective Patient more alert and oriented today. No respiratory distress noted Reviewed: Care Plan, H&P, Labs Changes from previous H/P or p: No Changes Eyes: No Pain, No Vision change, No Conjunctivae inflammation, No Eyelid inflammation, No Other, No Redness ENT: No Ear pain, No Ear discharge, No Nose pain, No Nose discharge, No Nose congestion, No Mouth pain, No Mouth swelling, No Throat pain, No Throat swelling, No Other Cardiovascular: No Chest Pain, No Palpitations, No Orthopnea, No Paroxysmal Noc. Dyspnea, No Edema, No Lt Headedness, No Other Respiratory: No Cough, No Dry; Shortness of breath, SOB with excertion; No Wheezing, No Hemoptysis, No Pleuritic Pain, No Sputum; Other (SOB at rest) Gastrointestinal: Nausea; No Vomiting, No Abdominal Pain, No Diarrhea; C onstipation; No Melena, No Hematochezia; Other (Poor appetite) Genitourinary: No Dysuria, No Frequency, No Incontinence, No Hematuria, No Retention, No Other Musculoskeletal: No other, No neck pain, No shoulder pain, No arm pain, No back pain, No hand pain, No leg pain, No foot pain Skin: No Rash, No Lesions, No Jaundice, No Bruising, No Other Objective Vitals Vital Signs Date Time Temp Pulse Resp B/P (MAP) Pulse Ox O2 Delivery O2 Flow Rate FiO2 09/26/24 10:04 91 16 97 09/26/24 06:17 Nasal Cannula 3.0 09/26/24 06:17 32 09/26/24 05:44 134/67 09/26/24 05:00 98.4 98.4 Intake/Output Intake and Output 09/26/24 07:00 Intake Total 1220 ml Output Total 3250 ml Balance -2030 ml Intake Oral 920 ml IV Total 300 ml Output Urine Total 3250 ml General Appearance: Alert, Oriented X3, Cooperative, mild distress HEENT: Atraumatic, PERRLA Lungs: Clear to auscultation Cardiovascular: Normal S1, Normal S2 Abdomen: Normal bowel sounds Genitourinary: No Apparent Abnormalities Musculoskeletal: Normal sensory function, Normal motor function Neuro: Normal speech, Cranial nerves 3-12 NL Skin: Dry, Intact Psych/Mental Status: Mental status NL, Mood NL Medications Current Medications Medications Dose Ordered Sig/Cathy Route Start Time Stop Time Status Last Admin Dose Admin Albuterol 2.5 mg Q4HPRN PRN NEB 09/10/24 06:30 09/22/24 02:04 2.5 MG Ipratropium [place] 0.5 mg Q4HPRN PRN NEB 09/10/24 06:30 09/22/24 02:04 0.5 MG Vancomycin HCl 0 ml @ 0 mls/hr UD IV 09/10/24 06:30 Cancel Ondansetron HCl 4 mg Q4HP PRN IV 09/10/24 06:30 Docusate Sodium 100 mg BIDPRN PRN PO 09/10/24 06:30 09/11/24 09:53 100 MG Acetaminophen 650 mg Q6HP PRN PO 09/10/24 06:30 09/22/24 08:01 650 MG Nitroglycerin 0.4 mg Q5MINP PRN SL 09/10/24 06:30 Enoxaparin Sodium 70 mg Q12HR SC 09/13/24 22:00 UNV Enteral Nutritional Formula 240 ml TIDWM PO 09/16/24 18:00 09/26/24 08:00 240 ML Nystatin 5 ml QID MT 09/17/24 18:00 09/26/24 05:44 5 ML Albuterol 2.5 mg Q4HWA NEB 09/17/24 18:00 09/26/24 09:56 2.5 MG Ipratropium [place] 0.5 mg Q4HWA NEB 09/17/24 18:00 09/26/24 09:56 0.5 MG Melatonin 10 mg QHSP PRN PO 09/20/24 15:15 09/23/24 21:58 10 MG Furosemide 40 mg BIDD IV 09/22/24 18:00 09/26/24 05:44 40 MG Potassium Chloride 10 meq DAILY PO 09/23/24 10:00 09/26/24 09:54 10 MEQ Enalaprilat 1.25 mg Q6HP PRN IV 09/22/24 13:00 Morphine Sulfate 1 mg Q4HP PRN IV 09/22/24 14:15 09/26/24 04:37 1 MG Micafungin Sodium 100 mg/Sodium Chloride 100 ml @ 100 mls/hr DAILY IV 09/23/24 10:00 11/25/24 09:54 100 MLS/HR Apixaban 5 mg BID PO 09/23/24 22:00 09/26/24 09:54 5 MG Piperacillin Sod/ Tazobactam Sod 100 ml @ 25 mls/hr Q8H IV 09/24/24 20:00 09/26/24 04:13 25 MLS/HR Laboratory Results Laboratory Tests 09/24/24 15:36 09/26/24 06:27 Urinalysis Test 09/10/24 04:47 09/14/24 08:00 Urine Color Yellow (Yellow) Urine Clarity Clear (Clear) Urine pH 6.0 (5.0-9.0) Urine Specific [place] 1.031 (1.001-1.035) Urine Protein 1+ (Negative) H Urine Ketones Trace (Negative) Urine Blood Negative /uL (Negative) Urine Nitrite Negative (Negative) Urine Bilirubin Negative (Negative) Urine Urobilinogen 2 mg/dL (Negative) H Urine Leukocyte Esterase Negative /uL (Negative) Urine RBC 3 /hpf (0 - 3) Urine WBC 3 /hpf (0 - 3) Urine Squamous Epithelial Cells None seen /hpf (<5) Urine Bacteria None seen /hpf (None Seen) Urine Mucus Few (None Seen) Urine Glucose Normal mg/dL (Normal) Urine Osmolality 405 mOsm/kg Urine Creatinine 40.31 mg/dL (30.0-125.0) Urine Protein/Creatinine Ratio 0.54 Urine Sodium 24 mmol/L (40-220) L Urine Total Protein 21.7 mg/dL (1-14) H Microbiology Microbiology Date/Time Source Procedure Growth Status 09/18/24 14:50 Blood Blood Culture - Final NO GROWTH AFTER 5 DAYS OF INCUBATION. Complete 09/16/24 20:50 Sputum Gram Stain - Final Complete 09/16/24 20:50 Respiratory Culture - Final Presumptive Desirae albicans Complete 09/13/24 09:50 Nose MRSA Screen - Final Complete Labs and/or images reviewed: Labs reviewed by me, Image(s) reviewed by me Assessment/Plan Assessment/Plan Plan: -sepsis -pneumonia -necrotizing lymph node -bullous emphysema -acute hypoxic respiratory failure -nicotine dependence -atelectasis -hyponatremia -pulmonary mass, rule out CA -DVT to cephalic vein Plan: Events: Improved clinical status. -continue Eliquis -biopsy results pending -ID consultation : Recommendations reviewed -pulmonary consultation : Recommendations review -continue current antimicrobial regimen -change to pureed diet with supplementation -bronchodilators -PUD, DVT prophylaxis -repeat labs in a.m. -social service consultation for assisted facility placement. Total time spent with patient discussing and formulating plan of care: 35 minutes. This medical document was created using an electronic medical record system with [employer] dictation system. Although this document has been carefully reviewed, there may still be some phonetic and typographical errors. These areas are purely typographical due to imperfections of the software programs, and do not reflect any compromise in the patient's medical care. Plan discussed with: Patient, Other (RN) My Orders Orders - KYUNG KENDRICK NP Procedure Category Date Status Time Furosemide Injection PHA 09/27/24 Verified (Lasix Injection) 10:00 * Technical Support Specialist CONS 09/26/24 Verified Consult Date of Service: Sep 26, 2024 Billing Provider: KYUNG KENDRICK NP Common Visit Codes: [id number] INP/OBS CARE(HIGH) KYUNG KENDRICK NP Sep 26, 2024 10:08
[2024-09-26 13:00] LABS: INR 1.53 (0.9-1.15); Partial Thromboplastin Time 31.2 SEC (24.5-34.5); Prothrombin Time 15.7 sec (9.3-11.8)
--- NOTE | 2024-09-26 16:59 | DVHPN2 ---
Consult Progress Note Date Seen: Sep 26, 2024 Subjective Patient reports: Other (in no acute distress and there is no more bronci in lungs and they sound clear , on 3 liters nasal canula ) Objective vital signs Vital Sign Date Time Temp Pulse Resp B/P (MAP) Pulse Ox O2 Delivery O2 Flow Rate FiO2 09/26/24 14:13 85 16 100 09/26/24 13:00 98.0 105/62 (76) 98.0 09/26/24 10:00 Nasal Cannula 3.0 09/26/24 10:00 32 Total Intake and Output 09/25/24 09/25/24 09/26/24 15:00 23:00 07:00 Intake Total 100 ml 550 ml 570 ml Output Total 2800 ml 450 ml Balance 100 ml -2250 ml 120 ml medications Current Medications Medications Dose Ordered Sig/Cathy Route Start Time Stop Time Status Last Admin Dose Admin Albuterol 2.5 mg Q4HPRN PRN NEB 09/10/24 06:30 09/22/24 02:04 2.5 MG Ipratropium [place] 0.5 mg Q4HPRN PRN NEB 09/10/24 06:30 09/22/24 02:04 0.5 MG Vancomycin HCl 0 ml @ 0 mls/hr UD IV 09/10/24 06:30 Cancel Ondansetron HCl 4 mg Q4HP PRN IV 09/10/24 06:30 Docusate Sodium 100 mg BIDPRN PRN PO 09/10/24 06:30 09/11/24 09:53 100 MG Acetaminophen 650 mg Q6HP PRN PO 09/10/24 06:30 09/22/24 08:01 650 MG Nitroglycerin 0.4 mg Q5MINP PRN SL 09/10/24 06:30 Enoxaparin Sodium 70 mg Q12HR SC 09/13/24 22:00 UNV Enteral Nutritional Formula 240 ml TIDWM PO 09/16/24 18:00 09/26/24 12:00 240 ML Nystatin 5 ml QID MT 09/17/24 18:00 09/26/24 13:00 5 ML Albuterol 2.5 mg Q4HWA NEB 09/17/24 18:00 09/26/24 14:05 2.5 MG Ipratropium [place] 0.5 mg Q4HWA NEB 09/17/24 18:00 09/26/24 14:05 0.5 MG Melatonin 10 mg QHSP PRN PO 09/20/24 15:15 09/23/24 21:58 10 MG Potassium Chloride 10 meq DAILY PO 09/23/24 10:00 09/26/24 09:54 10 MEQ Enalaprilat 1.25 mg Q6HP PRN IV 09/22/24 13:00 Morphine Sulfate 1 mg Q4HP PRN IV 09/22/24 14:15 09/26/24 04:37 1 MG Micafungin Sodium 100 mg/Sodium Chloride 100 ml @ 100 mls/hr DAILY IV 09/23/24 10:00 09/26/24 09:54 100 MLS/HR Apixaban 5 mg BID PO 09/23/24 22:00 09/26/24 09:54 5 MG Piperacillin Sod/ Tazobactam Sod 100 ml @ 25 mls/hr Q8H IV 09/24/24 20:00 09/26/24 13:00 25 MLS/HR Furosemide 40 mg DAILY IV 09/27/24 10:00 PHYSICAL EXAM: - GENERAL: Alert and oriented x 3. No acute distress. Well-nourished. - EYES: EOMI. Anicteric. - HENT: Moist mucous membranes. No scleral icterus. No cervical lymphadenopathy. - LUNGS: Clear to auscultation bilaterally. No accessory muscle use. - CARDIOVASCULAR: Regular rate and rhythm. No murmur. No JVD. - ABDOMEN: Soft, non-tender and non-distended. No palpable masses. - EXTREMITIES: No edema. Non-tender.?SKIN: No rashes or lesions. Warm. - NEUROLOGIC: No focal neurological deficits. CN II-XII grossly intact, but not individually tested. - PSYCHIATRIC: Cooperative. Appropriate mood and affect laboratory and microbiology Laboratory Tests 09/26/24 06:27 09/24/24 15:36 Test 09/24/24 15:36 Range/Units Serum Glucose 122 H 74-106 mg/dL Problem List/Assessment/Plan Problems(with codes): (1) ASTHMA, CHRONIC OBSTRUCTIVE W ASTHMATICUS (2) SHORTNESS OF BREATH (3) COPD (chronic obstructive pulmonary disease) (4) Pneumonia (5) Status asthmaticus (6) Leukocytosis, unspecified (7) Hypertension (8) Generalized weakness Problem List/Assessment/Plan ID Problem List: -- Generalized weakness -- Fall with head injury -- Multifocal pneumonia -- Leukocytosis -- COPD exacerbation -- Hyponatremia -- Stage 2 sacral ulcers -- Tobacco use disorder Assessment This is a 79 y.o. male with a past medical history of asthma, COPD, and depression, who presents with generalized weakness and a fall resulting in a forehead abrasion. He has been experiencing loss of appetite, no bowel movements, and shortness of breath. Laboratory findings show leukocytosis with a WBC count of 35.6??10?/L, thrombocytosis with platelets at 539??10?/L, hyponatremia with sodium at 120?mmol/L, BUN of 22?mg/dL, creatinine of 0.6?mg/dL, glucose of 102?mg/dL, lactic acid of 1.5?mmol/L, and hemoglobin of 13.7?g/dL. CT head showed no acute abnormality. Chest CT revealed thyromegaly and extensive alveolar and parenchymal infiltrates in both lungs, seen in the right middle lobe, lingula, and both lower lobes. He was started empirically on vancomycin and ceftriaxone; azithromycin was later added. The patient has stage 2 sacral ulcers, non-purulent and non-eroded. 09/13: On imaging his doppler lower extemity ultrasound shows a nonocclusive thrombo scene in the proximal left superficial fomoral vein. CT of lungs which showed no pulmonary embolism. diffuse abnormal tissue density in posterior media steinum extened from the upper thorax to diaphragmatic hiatus with small air bubbles thats increased in size compared to last exam, which could represent nectrotic adenopathy abscess or esophageal injury or rupture. component on the left at the diaphragmatic hiatus is recommended , smoking related lung disease , patchy eclecticism consolidation. 09/14: white count remains elevated at 33. Dr choi from oncology saw patinet and suggent proliferative disorder is a possiblility but will asses after antibiotics, as well as consider a biopsy after a few weeks. MRSA nares came negative. 09/15: white count is slowing coming down and a backorder of levofloxacin 09/16: white count is slowly downtrending now at 28, 2 liters nasal canula 09/17: Patient was able to produce and induced sputum sample and so far results are with no growth 09/21: White count continues to downtrend now at 13 09/22: white count is 17.2 , chest xray shows stable mass like opacities in both lungs , had a biopsy done of a left pair of veterebral mass , 5 core biopsies were obtained 09/23: white count is elevated at 18 , chest x-ray showed stable mass capacities throughout both lungs, patient is negative for HIV 09/24: Chest xray shows plural classifications and airspace opacities appear to be similar to prior examination. stable blunting of constophrenic agles , appears overall stable but on more oxygen then what he came in with . getting bicarbonate greater than 40 09/25: white count is 10.3 , significant improvement Plan: - patient appears to be responding to therapy , continue Zosyn and micafungin - would not send patient home on levofloxacin as patient wasn't responding to this regimen , recommend patient go to SNF , recommend IV piccline placement and IV Zosyn continue therapy for 2 weeks - patients augmented renal function - will monitor for an addition 24 hours and plan to place piccline tomorrow - low suspicion that masses are due to fungal infection but can check for serologies - follow up on pathology results for the biopsy specimen of mass in lungs -- Status post lymph node biopsy will follow up on pathology results -- will fu on sputum culture -- patient started on eliquis for DVT for 3 months -- patient should follow up with infectious disease for chest Ct to see if necrotic lymph node resolved -- Implement wound care for stage 2 sacral ulcers. -- Monitor vital signs and oxygen saturation. Isolation Precautions: Standard Plan discussed with: Other Dietary Evaluation Review Comments: 1) Consider SORAIDA 1 pkt BID for wounds 2) Continue current plan of care Expected Outcomes/Goals: F/U in 3-5 days SHELBY OQUENDO MD Sep 26, 2024 16:59
--- NOTE | 2024-09-26 22:53 | DVHPN2 ---
Progress Note - Dictate Date Seen: Sep 26, 2024 Medical Necessity Reason Pt with a Central, PICC or Fol: Yes The following are medically ne: Lara Catheter Reason for lara catheter: Strict I&O Subjective Patient seen and examined at bedside. Remains on supplemental oxygen Overnight events reviewed. vital signs Vital Sign Date Time Temp Pulse Resp B/P (MAP) Pulse Ox O2 Delivery O2 Flow Rate FiO2 09/26/24 22:16 96 18 98 09/26/24 18:43 Nasal Cannula* 3 32 09/26/24 17:00 97.5 117/60 (79) 97.5 Total Intake and Output 09/25/24 09/25/24 09/26/24 15:00 23:00 07:00 Intake Total 100 ml 550 ml 570 ml Output Total 2800 ml 450 ml Balance 100 ml -2250 ml 120 ml medications Current Medications Medications Dose Ordered Sig/Cathy Route Start Time Stop Time Status Last Admin Dose Admin Albuterol 2.5 mg Q4HPRN PRN NEB 09/10/24 06:30 09/22/24 02:04 2.5 MG Ipratropium [place] 0.5 mg Q4HPRN PRN NEB 09/10/24 06:30 09/22/24 02:04 0.5 MG Vancomycin HCl 0 ml @ 0 mls/hr UD IV 09/10/24 06:30 Cancel Ondansetron HCl 4 mg Q4HP PRN IV 09/10/24 06:30 Docusate Sodium 100 mg BIDPRN PRN PO 09/10/24 06:30 09/11/24 09:53 100 MG Acetaminophen 650 mg Q6HP PRN PO 09/10/24 06:30 09/22/24 08:01 650 MG Nitroglycerin 0.4 mg Q5MINP PRN SL 09/10/24 06:30 Enoxaparin Sodium 70 mg Q12HR SC 09/13/24 22:00 UNV Enteral Nutritional Formula 240 ml TIDWM PO 09/16/24 18:00 09/26/24 17:02 240 ML Nystatin 5 ml QID MT 09/17/24 18:00 09/26/24 22:29 5 ML Albuterol 2.5 mg Q4HWA NEB 09/17/24 18:00 09/26/24 22:06 2.5 MG Ipratropium [place] 0.5 mg Q4HWA NEB 09/17/24 18:00 09/26/24 22:06 0.5 MG Melatonin 10 mg QHSP PRN PO 09/20/24 15:15 09/23/24 21:58 10 MG Potassium Chloride 10 meq DAILY PO 09/23/24 10:00 09/26/24 09:54 10 MEQ Enalaprilat 1.25 mg Q6HP PRN IV 09/22/24 13:00 Morphine Sulfate 1 mg Q4HP PRN IV 09/22/24 14:15 09/26/24 04:37 1 MG Micafungin Sodium 100 mg/Sodium Chloride 100 ml @ 100 mls/hr DAILY IV 09/23/24 10:00 09/26/24 09:54 100 MLS/HR Apixaban 5 mg BID PO 09/23/24 22:00 09/26/24 22:29 5 MG Piperacillin Sod/ Tazobactam Sod 100 ml @ 25 mls/hr Q8H IV 09/24/24 20:00 09/26/24 20:47 25 MLS/HR Furosemide 40 mg DAILY IV 09/27/24 10:00 objective Gen.: Patient lying in bed in no apparent distress. On supplemental oxygen. Head: Normocephalic, atraumatic. Eyes: EOMI/PERRLA. Ears: Normal hearing. Normal anatomy. Neck/trachea: Trachea midline, supple. Nose: Normal external anatomy. Mouth: Moist mucous membranes. Chest: Decreased air entry bilaterally. No wheezing or rhonchi. Positive crackles. Cardiovascular: Positive S1, positive S2. Regular rate and rhythm. Abdomen: Positive bowel sounds in all 4 quadrants. Soft, non-tender, non- distended. : Deferred. Rectal: Deferred. Skin: Warm, dry. Intact. Extremities: 2+ radial pulses bilaterally. No lower extremity edema. Neuro: Awake, alert, oriented x3. No gross motor or sensory deficits. Cranial nerves II through XII intact. Gait not assessed. laboratory and microbiology Laboratory Tests 09/26/24 06:27 09/24/24 15:36 Test 09/24/24 15:36 Range/Units Serum Glucose 122 H 74-106 mg/dL Assessment/Plan Impression: Acute hypoxic respiratory failure Pneumonia COPD Emphysema, paraseptal and centrilobular Fibroid atelectatic opacities in the right middle lobe, lingula and bilateral lower lobes. Calcified pleural plaques in the right upper lobe and posterior aspects of the lower lobes bilaterally Pleural effusions, Atelectasis Hyponatremia Events: Remains on supplemental O2 at 3 LPM NC Taper O2 as tolerated Awaiting biopsy results. Follow up Gold interferon. ID recommendations appreciated. Patient declined therapeutic bronchoscopy. Wound care Incentive spirometry Continue bronchodilators Continue antibiotics - Zosyn. Continue antifungal. On Nystatin Head of bed elevation Aspiration precautions Continue diuresis w/ Lasix QD Monitor renal function. Monitor ins and outs Maintain euvolemia Lara d/t urinary retention. HERSON resolved after Lara placement - HERSON likely due to urine retention. Eliquis BID for DVT prophylaxis Labs and imaging reviewed. Rest of plan as noted below. Plan: Supplemental oxygen Keep O2 saturation above 92% CT chest report and images reviewed. Emphysematous changes. Fibro atelectatic opacity in the right middle lobe, lingula and bilateral lower lobes. Calcified plaques in the right upper and bilateral lower lobes and posteriorly. Minimal pleural effusions and atelectasis. Antibiotics. Monitor WBC count. Blood cultures show no growth. Continue bronchodilators as needed. Pain control. Avoid over-sedation. Incentive spirometry. IV fluids at 60 mL an hour. Monitor renal function. Monitor electrolytes. Supplement as necessary. Hyponatremia - Monitor sodium DVT prophylaxis Prognosis: Guarded given multiple comorbidities. Rest of plan per hospitalist and other consultants. Thank you Dr. Reed for allowing me to participate in this patient's care. Further recommendations will depend on patient's clinical course. Please do not hesitate to contact me if you have any questions or concerns. This medical document was created using an electronic medical record system with [employer] dictation system. Although this document has been carefully reviewed, there may still be some phonetic and typographical errors. These areas are purely typographical due to imperfections of the software programs, and do not reflect any compromise in the patient's medical care. Dietary Evaluation Review Comments: 1) Consider SORAIDA 1 pkt BID for wounds 2) Continue current plan of care Expected Outcomes/Goals: F/U in 3-5 days Plan discussed with: Patient, Other (JEANNINE Bishop) TORITO URBAN MD Sep 26, 2024 22:53
[2024-09-27] VITALS (17 sets, daily range): BP systolic 102–117; BP diastolic 54–62; PULSE 81–94; RESP 16–21; TEMP 98–98.5; O2SAT 92–100
[2024-09-27 06:37] LABS: Hematocrit 29.9 % (41.0-53.0); Mean Corpuscular Hemoglobin 29.7 pg (28.0-32.0); Mean Corpuscular Hgb Conc. 33.4 g/dL (32.0-36.0); Mean Corpuscular Volume 88.8 fL (80.0-100.0); Platelet Count (auto) 729 10^3/uL (140-450); Red Blood Cells 3.37 10^6/uL (4.5-5.90); Red Cell Distribution Width 13.9 % (11.8-14.3); White Blood Cell 10.5 10^3/uL (4.4-10.8)
[2024-09-27 06:47] LABS: Band Neutrophils % (manual) 0; Basophils % (manual) 0 (0.0-2.0); Blast Cells 0; Metamyelocytes % 0; Myelocytes % 0; Promyelocytes % 0; Reactive Lymphocytes 0
[2024-09-27 08:52] LABS: Eosinophils % (manual) 1 (0-7); Lymphocytes % (manual) 6 (10.0-50.0); Monocytes % (manual) 10 (0-12)
[2024-09-27 08:53] LABS: Platelet Estimate Increased
[2024-09-27] MEDS: FUROSEMIDE 40 MG/4 ML VIAL IV SCH (10:01)
[2024-09-27 12:07] LABS: QuantiFERON-TB Gold Plus Negative (Negative)
--- NOTE | 2024-09-27 13:34 | DVHPN2 ---
Subjective Patient more alert and oriented today. No respiratory distress noted Reviewed: Care Plan, H&P, Labs Changes from previous H/P or p: No Changes Eyes: No Pain, No Vision change, No Conjunctivae inflammation, No Eyelid inflammation, No Other, No Redness ENT: No Ear pain, No Ear discharge, No Nose pain, No Nose discharge, No Nose congestion, No Mouth pain, No Mouth swelling, No Throat pain, No Throat swelling, No Other Cardiovascular: No Chest Pain, No Palpitations, No Orthopnea, No Paroxysmal Noc. Dyspnea, No Edema, No Lt Headedness, No Other Respiratory: No Cough, No Dry; Shortness of breath, SOB with excertion; No Wheezing, No Hemoptysis, No Pleuritic Pain, No Sputum; Other (SOB at rest) Gastrointestinal: Nausea; No Vomiting, No Abdominal Pain, No Diarrhea; C onstipation; No Melena, No Hematochezia; Other (Poor appetite) Genitourinary: No Dysuria, No Frequency, No Incontinence, No Hematuria, No Retention, No Other Musculoskeletal: No other, No neck pain, No shoulder pain, No arm pain, No back pain, No hand pain, No leg pain, No foot pain Skin: No Rash, No Lesions, No Jaundice, No Bruising, No Other Objective Vitals Vital Signs Date Time Temp Pulse Resp B/P (MAP) Pulse Ox O2 Delivery O2 Flow Rate FiO2 09/27/24 13:29 98.3 85 20 104/58 (73) 96 98.3 09/27/24 10:13 Nasal Cannula 2.0 09/27/24 10:13 28 Intake/Output Intake and Output 09/27/24 07:00 Intake Total 1760 ml Output Total 800 ml Balance 960 ml Intake Oral 1360 ml IV Total 400 ml Output Urine Total 800 ml General Appearance: Alert, Oriented X3, Cooperative, mild distress HEENT: Atraumatic, PERRLA Lungs: Clear to auscultation Cardiovascular: Normal S1, Normal S2 Abdomen: Normal bowel sounds Genitourinary: No Apparent Abnormalities Musculoskeletal: Normal sensory function, Normal motor function Neuro: Normal speech, Cranial nerves 3-12 NL Skin: Dry, Intact Psych/Mental Status: Mental status NL, Mood NL Medications Current Medications Medications Dose Ordered Sig/Cathy Route Start Time Stop Time Status Last Admin Dose Admin Albuterol 2.5 mg Q4HPRN PRN NEB 09/10/24 06:30 09/22/24 02:04 2.5 MG Ipratropium [place] 0.5 mg Q4HPRN PRN NEB 09/10/24 06:30 09/22/24 02:04 0.5 MG Vancomycin HCl 0 ml @ 0 mls/hr UD IV 09/10/24 06:30 Cancel Ondansetron HCl 4 mg Q4HP PRN IV 09/10/24 06:30 Docusate Sodium 100 mg BIDPRN PRN PO 09/10/24 06:30 09/11/24 09:53 100 MG Acetaminophen 650 mg Q6HP PRN PO 09/10/24 06:30 09/22/24 08:01 650 MG Nitroglycerin 0.4 mg Q5MINP PRN SL 09/10/24 06:30 Enoxaparin Sodium 70 mg Q12HR SC 09/13/24 22:00 UNV Enteral Nutritional Formula 240 ml TIDWM PO 09/16/24 18:00 09/27/24 12:00 240 ML Nystatin 5 ml QID MT 09/17/24 18:00 09/27/24 12:37 5 ML Albuterol 2.5 mg Q4HWA NEB 09/17/24 18:00 09/27/24 10:13 2.5 MG Ipratropium [place] 0.5 mg Q4HWA NEB 09/17/24 18:00 09/27/24 10:13 0.5 MG Melatonin 10 mg QHSP PRN PO 09/20/24 15:15 09/23/24 21:58 10 MG Potassium Chloride 10 meq DAILY PO 09/23/24 10:00 09/27/24 10:00 10 MEQ Enalaprilat 1.25 mg Q6HP PRN IV 09/22/24 13:00 Morphine Sulfate 1 mg Q4HP PRN IV 09/22/24 14:15 09/26/24 04:37 1 MG Micafungin Sodium 100 mg/Sodium Chloride 100 ml @ 100 mls/hr DAILY IV 09/23/24 10:00 09/27/24 10:00 100 MLS/HR Apixaban 5 mg BID PO 09/23/24 22:00 09/27/24 10:00 5 MG Piperacillin Sod/ Tazobactam Sod 100 ml @ 25 mls/hr Q8H IV 09/24/24 20:00 09/27/24 12:37 25 MLS/HR Furosemide 40 mg DAILY IV 09/27/24 10:00 09/27/24 10:01 40 MG Laboratory Results Laboratory Tests 09/24/24 15:36 09/27/24 05:51 Urinalysis Test 09/10/24 04:47 09/14/24 08:00 Urine Color Yellow (Yellow) Urine Clarity Clear (Clear) Urine pH 6.0 (5.0-9.0) Urine Specific [place] 1.031 (1.001-1.035) Urine Protein 1+ (Negative) H Urine Ketones Trace (Negative) Urine Blood Negative /uL (Negative) Urine Nitrite Negative (Negative) Urine Bilirubin Negative (Negative) Urine Urobilinogen 2 mg/dL (Negative) H Urine Leukocyte Esterase Negative /uL (Negative) Urine RBC 3 /hpf (0 - 3) Urine WBC 3 /hpf (0 - 3) Urine Squamous Epithelial Cells None seen /hpf (<5) Urine Bacteria None seen /hpf (None Seen) Urine Mucus Few (None Seen) Urine Glucose Normal mg/dL (Normal) Urine Osmolality 405 mOsm/kg Urine Creatinine 40.31 mg/dL (30.0-125.0) Urine Protein/Creatinine Ratio 0.54 Urine Sodium 24 mmol/L (40-220) L Urine Total Protein 21.7 mg/dL (1-14) H Microbiology Microbiology Date/Time Source Procedure Growth Status 09/18/24 14:50 Blood Blood Culture - Final NO GROWTH AFTER 5 DAYS OF INCUBATION. Complete 09/16/24 20:50 Sputum Gram Stain - Final Complete 09/16/24 20:50 Respiratory Culture - Final Presumptive Desirae albicans Complete 09/13/24 09:50 Nose MRSA Screen - Final Complete Labs and/or images reviewed: Labs reviewed by me, Image(s) reviewed by me Assessment/Plan Assessment/Plan Plan: -sepsis -pneumonia -necrotizing lymph node -bullous emphysema -acute hypoxic respiratory failure -nicotine dependence -atelectasis -hyponatremia -pulmonary mass, rule out CA -DVT to cephalic vein Deep tissue injury to coccyx Plan: Events: Improved clinical status. -continue Eliquis -biopsy results pending -ID consultation : Recommendations reviewed -pulmonary consultation : Recommendations review -continue current antimicrobial regimen -change to pureed diet with supplementation -bronchodilators -PUD, DVT prophylaxis -repeat labs in a.m. -social service consultation to assist with discharge planning. Patient will require IV antibiotics. Total time spent with patient discussing and formulating plan of care: 35 minutes. This medical document was created using an electronic medical record system with [employer] dictation system. Although this document has been carefully reviewed, there may still be some phonetic and typographical errors. These areas are purely typographical due to imperfections of the software programs, and do not reflect any compromise in the patient's medical care. Plan discussed with: Patient, Other (RN) My Orders Orders - KYNUG KENDRICK NP Procedure Category Date Status Time * [employer] CONS 09/26/24 Transmitted Consult 15:05 Date of Service: Sep 27, 2024 Billing Provider: KYUNG KENDRICK NP Common Visit Codes: [id number] INP/OBS CARE(HIGH) KYUNG KENDRICK NP Sep 27, 2024 13:34
--- NOTE | 2024-09-27 21:10 | DVHPN2 ---
Progress Note - Dictate Date Seen: Sep 27, 2024 Medical Necessity Reason Pt with a Central, PICC or Fol: Yes The following are medically ne: Lara Catheter Reason for lara catheter: Strict I&O Subjective Patient seen and examined at bedside. Remains on supplemental oxygen Overnight events reviewed. vital signs Vital Sign Date Time Temp Pulse Resp B/P (MAP) Pulse Ox O2 Delivery O2 Flow Rate FiO2 09/27/24 20:51 98 18 102/62 09/27/24 19:02 98 09/27/24 18:52 Nasal Cannula* 3 32 09/27/24 17:00 98.1 98.1 Total Intake and Output 09/26/24 09/26/24 09/27/24 15:00 23:00 07:00 Intake Total 440 ml 860 ml 460 ml Output Total 400 ml 400 ml Balance 440 ml 460 ml 60 ml medications Current Medications Medications Dose Ordered Sig/Cathy Route Start Time Stop Time Status Last Admin Dose Admin Albuterol 2.5 mg Q4HPRN PRN NEB 09/10/24 06:30 09/22/24 02:04 2.5 MG Ipratropium [place] 0.5 mg Q4HPRN PRN NEB 09/10/24 06:30 09/22/24 02:04 0.5 MG Vancomycin HCl 0 ml @ 0 mls/hr UD IV 09/10/24 06:30 Cancel Ondansetron HCl 4 mg Q4HP PRN IV 09/10/24 06:30 Docusate Sodium 100 mg BIDPRN PRN PO 09/10/24 06:30 09/11/24 09:53 100 MG Acetaminophen 650 mg Q6HP PRN PO 09/10/24 06:30 09/22/24 08:01 650 MG Nitroglycerin 0.4 mg Q5MINP PRN SL 09/10/24 06:30 Enoxaparin Sodium 70 mg Q12HR SC 09/13/24 22:00 UNV Enteral Nutritional Formula 240 ml TIDWM PO 09/16/24 18:00 09/27/24 17:59 240 ML Nystatin 5 ml QID MT 09/17/24 18:00 09/27/24 21:00 5 ML Albuterol 2.5 mg Q4HWA NEB 09/17/24 18:00 09/27/24 18:52 2.5 MG Ipratropium [place] 0.5 mg Q4HWA NEB 09/17/24 18:00 09/27/24 18:52 0.5 MG Melatonin 10 mg QHSP PRN PO 09/20/24 15:15 09/23/24 21:58 10 MG Potassium Chloride 10 meq DAILY PO 09/23/24 10:00 09/27/24 10:00 10 MEQ Enalaprilat 1.25 mg Q6HP PRN IV 09/22/24 13:00 Morphine Sulfate 1 mg Q4HP PRN IV 09/22/24 14:15 09/27/24 20:51 1 MG Micafungin Sodium 100 mg/Sodium Chloride 100 ml @ 100 mls/hr DAILY IV 09/23/24 10:00 09/27/24 10:00 100 MLS/HR Apixaban 5 mg BID PO 09/23/24 22:00 09/27/24 21:00 5 MG Piperacillin Sod/ Tazobactam Sod 100 ml @ 25 mls/hr Q8H IV 09/24/24 20:00 09/27/24 20:31 25 MLS/HR Furosemide 40 mg DAILY IV 09/27/24 10:00 09/27/24 10:01 40 MG objective Gen.: Patient lying in bed in no apparent distress. On supplemental oxygen. Head: Normocephalic, atraumatic. Eyes: EOMI/PERRLA. Ears: Normal hearing. Normal anatomy. Neck/trachea: Trachea midline, supple. Nose: Normal external anatomy. Mouth: Moist mucous membranes. Chest: Decreased air entry bilaterally. No wheezing or rhonchi. Positive crackles. Cardiovascular: Positive S1, positive S2. Regular rate and rhythm. Abdomen: Positive bowel sounds in all 4 quadrants. Soft, non-tender, non- distended. : Deferred. Rectal: Deferred. Skin: Warm, dry. Intact. Extremities: 2+ radial pulses bilaterally. No lower extremity edema. Neuro: Awake, alert, oriented x3. No gross motor or sensory deficits. Cranial nerves II through XII intact. Gait not assessed. laboratory and microbiology Laboratory Tests 09/27/24 05:51 09/24/24 15:36 Test 09/24/24 15:36 Range/Units Serum Glucose 122 H 74-106 mg/dL Assessment/Plan Impression: Acute hypoxic respiratory failure Pneumonia COPD Emphysema, paraseptal and centrilobular Fibroid atelectatic opacities in the right middle lobe, lingula and bilateral lower lobes. Calcified pleural plaques in the right upper lobe and posterior aspects of the lower lobes bilaterally Pleural effusions, Atelectasis Hyponatremia Events: Remains on supplemental O2 at 4 LPM NC Taper O2 as tolerated Lung biopsy results reviewed; fragments of skeletal muscle and fibroadipose tissue with acute on chronic inflammation and only scant hematolymphoid. Gold interferon negative. Wound care ID recs appreciated. Incentive spirometry Continue bronchodilators/Mucomyst/CPT. Continue antibiotics - Zosyn. Continue antifungal. On Nystatin Head of bed elevation Aspiration precautions Continue diuresis w/ Lasix QD Monitor renal function. Monitor ins and outs Maintain euvolemia Lara d/t urinary retention. HERSON resolved after Lara placement - HERSON likely due to urine retention. Eliquis BID for DVT prophylaxis Disposition per hospitalist. Labs and imaging reviewed. Rest of plan as noted below. Plan: Supplemental oxygen Keep O2 saturation above 92% CT chest report and images reviewed. Emphysematous changes. Fibro atelectatic opacity in the right middle lobe, lingula and bilateral lower lobes. Calcified plaques in the right upper and bilateral lower lobes and posteriorly. Minimal pleural effusions and atelectasis. Antibiotics. Monitor WBC count. Blood cultures show no growth. Continue bronchodilators as needed. Pain control. Avoid over-sedation. Incentive spirometry. IV fluids at 60 mL an hour. Monitor renal function. Monitor electrolytes. Supplement as necessary. Hyponatremia - Monitor sodium DVT prophylaxis Prognosis: Guarded given multiple comorbidities. Rest of plan per hospitalist and other consultants. Thank you Dr. Reed for allowing me to participate in this patient's care. Further recommendations will depend on patient's clinical course. Please do not hesitate to contact me if you have any questions or concerns. This medical document was created using an electronic medical record system with [employer] dictation system. Although this document has been carefully reviewed, there may still be some phonetic and typographical errors. These areas are purely typographical due to imperfections of the software programs, and do not reflect any compromise in the patient's medical care. Dietary Evaluation Review Comments: 1) Consider SORAIDA 1 pkt BID for wounds 2) Continue current plan of care Expected Outcomes/Goals: F/U in 3-5 days Plan discussed with: Patient, Other (JEANNINE Reyna) TORITO URBAN MD Sep 27, 2024 21:10
[2024-09-28] VITALS (20 sets, daily range): BP systolic 93–124; BP diastolic 43–64; PULSE 69–91; RESP 18–28; TEMP 96.9–98.7; O2SAT 89–100
[2024-09-28 05:08] LABS: Coccidioides CF Antibody <1:2 (<1:2)
[2024-09-28 07:00] LABS: Hematocrit 32.1 % (41.0-53.0); Hemoglobin 10.9 g/dL (13.5-17.5); Mean Corpuscular Hemoglobin 30.7 pg (28.0-32.0); Mean Corpuscular Hgb Conc. 33.9 g/dL (32.0-36.0); Mean Corpuscular Volume 90.3 fL (80.0-100.0); Red Blood Cells 3.55 10^6/uL (4.5-5.90); Red Cell Distribution Width 13.9 % (11.8-14.3); White Blood Cell 13.7 10^3/uL (4.4-10.8)
[2024-09-28 07:23] LABS: Platelet Count (auto) 802 10^3/uL (140-450)
[2024-09-28 07:25] LABS: Basophils % (manual) 0 (0.0-2.0); Blast Cells 0; Eosinophils % (manual) 0 (0-7); Metamyelocytes % 0; Monocytes % (manual) 0 (0-12); Myelocytes % 0; Promyelocytes % 0; Reactive Lymphocytes 0
[2024-09-28 08:46] LABS: Band Neutrophils % (manual) 4; Lymphocytes % (manual) 4 (10.0-50.0)
[2024-09-28 08:47] LABS: Platelet Estimate Markedly Increased
[2024-09-28 14:06] LABS: Aspergillus flavus Negative (Neg:<1:1); Aspergillus fumigatus Negative (Neg:<1:1); Aspergillus niger Negative (Neg:<1:1); Blastomyces Antibody DID Negative (Neg:<1:1)
--- NOTE | 2024-09-28 14:40 | DVH ---
CHEST RADIOGRAPH Indication: pna Technique: Single frontal view of the chest was obtained Comparison: XY CHEST PORTABLE on DOS: 09/24/24, XY CHEST XRAY 1 VIEW on DOS: 09/22/24, XY CHEST MARCELLE BLE on DOS: 09/19/24 FINDINGS: Lines and Tubes: None Lungs: Bilateral pleural calcifications and pulmonary airspace disease unimproved from 09/24/2024. Pleura: Blunting of the lateral costophrenic angles bilaterally appears stable. No pneumothorax. Cardiomediastinal contours: Unremarkable Bones: No acute osseous abnormality. IMPRESSION: 1. Stable bilateral parenchymal calcifications. 2. Unimproved airspace disease 3. Blunting of the lateral costophrenic angles bilaterally stable. 4. Study is compared with 09/24/2024.
--- NOTE | 2024-09-28 14:43 | DVHPN2 ---
Subjective Patient more alert and oriented today. No respiratory distress noted Reviewed: Care Plan, H&P, Labs Changes from previous H/P or p: No Changes Eyes: No Pain, No Vision change, No Conjunctivae inflammation, No Eyelid inflammation, No Other, No Redness ENT: No Ear pain, No Ear discharge, No Nose pain, No Nose discharge, No Nose congestion, No Mouth pain, No Mouth swelling, No Throat pain, No Throat swelling, No Other Cardiovascular: No Chest Pain, No Palpitations, No Orthopnea, No Paroxysmal Noc. Dyspnea, No Edema, No Lt Headedness, No Other Respiratory: No Cough, No Dry; Shortness of breath, SOB with excertion; No Wheezing, No Hemoptysis, No Pleuritic Pain, No Sputum; Other (SOB at rest) Gastrointestinal: Nausea; No Vomiting, No Abdominal Pain, No Diarrhea; C onstipation; No Melena, No Hematochezia; Other (Poor appetite) Genitourinary: No Dysuria, No Frequency, No Incontinence, No Hematuria, No Retention, No Other Musculoskeletal: No other, No neck pain, No shoulder pain, No arm pain, No back pain, No hand pain, No leg pain, No foot pain Skin: No Rash, No Lesions, No Jaundice, No Bruising, No Other Objective Vitals Vital Signs Date Time Temp Pulse Resp B/P (MAP) Pulse Ox O2 Delivery O2 Flow Rate FiO2 09/28/24 13:58 75 18 100 09/28/24 13:52 Nasal Cannula 2.0 09/28/24 13:52 28 09/28/24 13:00 98.0 95/62 (73) 98.0 Intake/Output Intake and Output 09/28/24 07:00 Intake Total 900 ml Output Total 2600 ml Balance -1700 ml Intake Oral 600 ml IV Total 300 ml Output Urine Total 2600 ml # Bowel Movements 3 General Appearance: Alert, Oriented X3, Cooperative, mild distress HEENT: Atraumatic, PERRLA Lungs: Clear to auscultation Cardiovascular: Normal S1, Normal S2 Abdomen: Normal bowel sounds Genitourinary: No Apparent Abnormalities Musculoskeletal: Normal sensory function, Normal motor function Neuro: Normal speech, Cranial nerves 3-12 NL Skin: Dry, Intact Psych/Mental Status: Mental status NL, Mood NL Medications Current Medications Medications Dose Ordered Sig/Cathy Route Start Time Stop Time Status Last Admin Dose Admin Albuterol 2.5 mg Q4HPRN PRN NEB 09/10/24 06:30 09/22/24 02:04 2.5 MG Ipratropium [place] 0.5 mg Q4HPRN PRN NEB 09/10/24 06:30 09/22/24 02:04 0.5 MG Vancomycin HCl 0 ml @ 0 mls/hr UD IV 09/10/24 06:30 Cancel Ondansetron HCl 4 mg Q4HP PRN IV 09/10/24 06:30 Docusate Sodium 100 mg BIDPRN PRN PO 09/10/24 06:30 09/11/24 09:53 100 MG Acetaminophen 650 mg Q6HP PRN PO 09/10/24 06:30 09/22/24 08:01 650 MG Nitroglycerin 0.4 mg Q5MINP PRN SL 09/10/24 06:30 Enoxaparin Sodium 70 mg Q12HR SC 09/13/24 22:00 UNV Enteral Nutritional Formula 240 ml TIDWM PO 09/16/24 18:00 09/28/24 12:00 240 ML Nystatin 5 ml QID MT 09/17/24 18:00 09/28/24 12:34 5 ML Albuterol 2.5 mg Q4HWA NEB 09/17/24 18:00 09/28/24 13:52 2.5 MG Ipratropium [place] 0.5 mg Q4HWA NEB 09/17/24 18:00 09/28/24 13:52 0.5 MG Melatonin 10 mg QHSP PRN PO 09/20/24 15:15 09/23/24 21:58 10 MG Potassium Chloride 10 meq DAILY PO 09/23/24 10:00 09/28/24 10:08 10 MEQ Enalaprilat 1.25 mg Q6HP PRN IV 09/22/24 13:00 Morphine Sulfate 1 mg Q4HP PRN IV 09/22/24 14:15 09/28/24 08:20 1 MG Micafungin Sodium 100 mg/Sodium Chloride 100 ml @ 100 mls/hr DAILY IV 09/23/24 10:00 09/28/24 10:04 100 MLS/HR Apixaban 5 mg BID PO 09/23/24 22:00 09/28/24 10:08 5 MG Piperacillin Sod/ Tazobactam Sod 100 ml @ 25 mls/hr Q8H IV 09/24/24 20:00 09/28/24 12:34 25 MLS/HR Furosemide 40 mg DAILY IV 09/27/24 10:00 09/27/24 10:01 40 MG Laboratory Results Laboratory Tests 09/24/24 15:36 09/28/24 06:10 Urinalysis Test 09/10/24 04:47 09/14/24 08:00 Urine Color Yellow (Yellow) Urine Clarity Clear (Clear) Urine pH 6.0 (5.0-9.0) Urine Specific [place] 1.031 (1.001-1.035) Urine Protein 1+ (Negative) H Urine Ketones Trace (Negative) Urine Blood Negative /uL (Negative) Urine Nitrite Negative (Negative) Urine Bilirubin Negative (Negative) Urine Urobilinogen 2 mg/dL (Negative) H Urine Leukocyte Esterase Negative /uL (Negative) Urine RBC 3 /hpf (0 - 3) Urine WBC 3 /hpf (0 - 3) Urine Squamous Epithelial Cells None seen /hpf (<5) Urine Bacteria None seen /hpf (None Seen) Urine Mucus Few (None Seen) Urine Glucose Normal mg/dL (Normal) Urine Osmolality 405 mOsm/kg Urine Creatinine 40.31 mg/dL (30.0-125.0) Urine Protein/Creatinine Ratio 0.54 Urine Sodium 24 mmol/L (40-220) L Urine Total Protein 21.7 mg/dL (1-14) H Microbiology Microbiology Date/Time Source Procedure Growth Status 09/18/24 14:50 Blood Blood Culture - Final NO GROWTH AFTER 5 DAYS OF INCUBATION. Complete 09/16/24 20:50 Sputum Gram Stain - Final Complete 09/16/24 20:50 Respiratory Culture - Final Presumptive Desirae albicans Complete 09/13/24 09:50 Nose MRSA Screen - Final Complete Labs and/or images reviewed: Labs reviewed by me, Image(s) reviewed by me Assessment/Plan Assessment/Plan Plan: -sepsis -pneumonia -necrotizing lymph node -bullous emphysema -acute hypoxic respiratory failure -nicotine dependence -atelectasis -hyponatremia -pulmonary mass, rule out CA -DVT to cephalic vein Deep tissue injury to coccyx Plan: Events: Chest x-ray reviewed. Improved pulmonary vascular congestion. Persistent opacities. Mild elevation white blood cell count. Patient remains afebrile. Discharge planning continues to be challenging given insurance coverage outside of the hospital. -continue Eliquis -biopsy results pending -ID consultation : Recommendations reviewed -pulmonary consultation : Recommendations review -continue current antimicrobial regimen -change to pureed diet with supplementation -bronchodilators -PUD, DVT prophylaxis -repeat labs in a.m. -social service consultation to assist with discharge planning. Patient will require IV antibiotics. Total time spent with patient discussing and formulating plan of care: 35 minutes. This medical document was created using an electronic medical record system with [employer] dictation system. Although this document has been carefully reviewed, there may still be some phonetic and typographical errors. These areas are purely typographical due to imperfections of the software programs, and do not reflect any compromise in the patient's medical care. Plan discussed with: Patient, Other (RN) My Orders Orders - KYUNG KENDRICK NP Procedure Category Date Status Time Chest Xray 1 View XY 09/28/24 Resulted 13:40 Date of Service: Sep 28, 2024 Billing Provider: KYUNG KENDRICK NP Common Visit Codes: 97765-[id number] INP/OBS CARE(HIGH) KYUNG KENDRICK NP Sep 28, 2024 14:43
--- NOTE | 2024-09-28 22:35 | DVHPN2 ---
Consult Progress Note Date Seen: Sep 27, 2024 Subjective Patient reports: Feels better (rising thrombocytosis) Objective vital signs Vital Sign Date Time Temp Pulse Resp B/P (MAP) Pulse Ox O2 Delivery O2 Flow Rate FiO2 09/28/24 22:04 86 20 110/60 09/28/24 22:03 100 09/28/24 21:00 97.7 97.7 09/28/24 20:00 Nasal Cannula* 3 32 Total Intake and Output 09/27/24 09/27/24 09/28/24 15:00 23:00 07:00 Intake Total 300 ml 350 ml 250 ml Output Total 2300 ml 300 ml Balance 300 ml -1950 ml -50 ml medications Current Medications Medications Dose Ordered Sig/Cathy Route Start Time Stop Time Status Last Admin Dose Admin Albuterol 2.5 mg Q4HPRN PRN NEB 09/10/24 06:30 09/22/24 02:04 2.5 MG Ipratropium [place] 0.5 mg Q4HPRN PRN NEB 09/10/24 06:30 09/22/24 02:04 0.5 MG Vancomycin HCl 0 ml @ 0 mls/hr UD IV 09/10/24 06:30 Cancel Ondansetron HCl 4 mg Q4HP PRN IV 09/10/24 06:30 Docusate Sodium 100 mg BIDPRN PRN PO 09/10/24 06:30 09/11/24 09:53 100 MG Acetaminophen 650 mg Q6HP PRN PO 09/10/24 06:30 09/22/24 08:01 650 MG Nitroglycerin 0.4 mg Q5MINP PRN SL 09/10/24 06:30 Enoxaparin Sodium 70 mg Q12HR SC 09/13/24 22:00 UNV Enteral Nutritional Formula 240 ml TIDWM PO 09/16/24 18:00 09/28/24 17:44 240 ML Nystatin 5 ml QID MT 09/17/24 18:00 09/28/24 21:43 5 ML Albuterol 2.5 mg Q4HWA NEB 09/17/24 18:00 09/28/24 21:56 2.5 MG Ipratropium [place] 0.5 mg Q4HWA NEB 09/17/24 18:00 09/28/24 21:56 0.5 MG Melatonin 10 mg QHSP PRN PO 09/20/24 15:15 09/23/24 21:58 10 MG Potassium Chloride 10 meq DAILY PO 09/23/24 10:00 09/28/24 10:08 10 MEQ Enalaprilat 1.25 mg Q6HP PRN IV 09/22/24 13:00 Morphine Sulfate 1 mg Q4HP PRN IV 09/22/24 14:15 09/28/24 22:04 1 MG Micafungin Sodium 100 mg/Sodium Chloride 100 ml @ 100 mls/hr DAILY IV 09/23/24 10:00 09/28/24 10:04 100 MLS/HR Apixaban 5 mg BID PO 09/23/24 22:00 09/28/24 21:46 5 MG Piperacillin Sod/ Tazobactam Sod 100 ml @ 25 mls/hr Q8H IV 09/24/24 20:00 09/28/24 21:43 25 MLS/HR Furosemide 40 mg DAILY IV 09/27/24 10:00 09/27/24 10:01 40 MG PHYSICAL EXAM: - GENERAL: Alert and oriented x 3. No acute distress. Well-nourished. ? - EYES: EOMI. Anicteric. ?- HENT: Moist mucous membranes. No scleral icterus. No cervical lymphadenopathy. ?- LUNGS: Clear to auscultation bilaterally. No accessory muscle use.? - CARDIOVASCULAR: Regular rate and rhythm. No murmur. No JVD.? - ABDOMEN: Soft, non-tender and non-distended. No palpable masses.? - EXTREMITIES: No edema. Non-tender.?SKIN: No rashes or lesions. Warm. ? - NEUROLOGIC: No focal neurological deficits. CN II-XII grossly intact, but not individually tested.? - PSYCHIATRIC: Cooperative. Appropriate mood and affect. laboratory and microbiology Laboratory Tests 09/28/24 06:10 09/24/24 15:36 Test 09/24/24 15:36 Range/Units Serum Glucose 122 H 74-106 mg/dL Problem List/Assessment/Plan Problem List/Assessment/Plan ID Problem List: -- Generalized weakness -- Fall with head injury -- Multifocal pneumonia -- Leukocytosis -- COPD exacerbation -- Hyponatremia -- Stage 2 sacral ulcers -- Tobacco use disorder Assessment This is a 79 y.o. male with a past medical history of asthma, COPD, and depression, who presents with generalized weakness and a fall resulting in a forehead abrasion. He has been experiencing loss of appetite, no bowel movements, and shortness of breath. Laboratory findings show leukocytosis with a WBC count of 35.6??10?/L, thrombocytosis with platelets at 539??10?/L, hyponatremia with sodium at 120?mmol/L, BUN of 22?mg/dL, creatinine of 0.6?mg/dL, glucose of 102?mg/dL, lactic acid of 1.5?mmol/L, and hemoglobin of 13.7?g/dL. CT head showed no acute abnormality. Chest CT revealed thyromegaly and extensive alveolar and parenchymal infiltrates in both lungs, seen in the right middle lobe, lingula, and both lower lobes. He was started empirically on vancomycin and ceftriaxone; azithromycin was later added. The patient has stage 2 sacral ulcers, non-purulent and non-eroded. 09/13: On imaging his doppler lower extemity ultrasound shows a nonocclusive thrombo scene in the proximal left superficial fomoral vein. CT of lungs which showed no pulmonary embolism. diffuse abnormal tissue density in posterior media steinum extened from the upper thorax to diaphragmatic hiatus with small air bubbles thats increased in size compared to last exam, which could represent nectrotic adenopathy abscess or esophageal injury or rupture. component on the left at the diaphragmatic hiatus is recommended , smoking related lung disease , patchy eclecticism consolidation. 09/14: white count remains elevated at 33. Dr choi from oncology saw patinet and suggent proliferative disorder is a possiblility but will asses after antibiotics, as well as consider a biopsy after a few weeks. MRSA nares came negative. 09/15: white count is slowing coming down and a backorder of levofloxacin 09/16: white count is slowly downtrending now at 28, 2 liters nasal canula 09/17: Patient was able to produce and induced sputum sample and so far results are with no growth 09/21: White count continues to downtrend now at 13 09/22: white count is 17.2 , chest xray shows stable mass like opacities in both lungs , had a biopsy done of a left pair of veterebral mass , 5 core biopsies were obtained 09/23: white count is elevated at 18 , chest x-ray showed stable mass capacities throughout both lungs, patient is negative for HIV 09/24: Chest xray shows plural classifications and airspace opacities appear to be similar to prior examination. stable blunting of constophrenic agles , appears overall stable but on more oxygen then what he came in with . getting bicarbonate greater than 40 09/25: white count is 10.3 , significant improvement fungal serolgies and quant tb is negative Plan: - stop micafungin - patient appears to be responding to therapy , continue Zosyn - IV piccline placement and IV Zosyn continue therapy for 2 weeks - patients augmented renal function - follow up on pathology results for the biopsy specimen of mass in lungs -- Status post lymph node biopsy will follow up on pathology results -- will fu on sputum culture -- patient started on eliquis for DVT for 3 months -- patient should follow up with infectious disease for chest Ct to see if necrotic lymph node resolved -- Implement wound care for stage 2 sacral ulcers. -- Monitor vital signs and oxygen saturation. Isolation Precautions: Standard Plan discussed with: Patient Dietary Evaluation Review Comments: 1) Consider SORAIDA 1 pkt BID for wounds 2) Continue current plan of care Expected Outcomes/Goals: F/U in 3-5 days SHELBY OQUENDO MD Sep 28, 2024 22:35
--- NOTE | 2024-09-28 23:35 | DVHPN2 ---
Progress Note - Dictate Date Seen: Sep 28, 2024 Medical Necessity Reason Pt with a Central, PICC or Fol: Yes The following are medically ne: Lara Catheter Reason for lara catheter: Strict I&O Subjective Patient seen and examined at bedside. Remains on supplemental oxygen Overnight events reviewed. vital signs Vital Sign Date Time Temp Pulse Resp B/P (MAP) Pulse Ox O2 Delivery O2 Flow Rate FiO2 09/28/24 22:04 86 20 110/60 09/28/24 22:03 100 09/28/24 21:00 97.7 97.7 09/28/24 20:00 Nasal Cannula* 3 32 Total Intake and Output 09/27/24 09/27/24 09/28/24 15:00 23:00 07:00 Intake Total 300 ml 350 ml 250 ml Output Total 2300 ml 300 ml Balance 300 ml -1950 ml -50 ml medications Current Medications Medications Dose Ordered Sig/Cathy Route Start Time Stop Time Status Last Admin Dose Admin Albuterol 2.5 mg Q4HPRN PRN NEB 09/10/24 06:30 09/22/24 02:04 2.5 MG Ipratropium [place] 0.5 mg Q4HPRN PRN NEB 09/10/24 06:30 09/22/24 02:04 0.5 MG Vancomycin HCl 0 ml @ 0 mls/hr UD IV 09/10/24 06:30 Cancel Ondansetron HCl 4 mg Q4HP PRN IV 09/10/24 06:30 Docusate Sodium 100 mg BIDPRN PRN PO 09/10/24 06:30 09/11/24 09:53 100 MG Acetaminophen 650 mg Q6HP PRN PO 09/10/24 06:30 09/22/24 08:01 650 MG Nitroglycerin 0.4 mg Q5MINP PRN SL 09/10/24 06:30 Enoxaparin Sodium 70 mg Q12HR SC 09/13/24 22:00 UNV Enteral Nutritional Formula 240 ml TIDWM PO 09/16/24 18:00 09/28/24 17:44 240 ML Nystatin 5 ml QID MT 09/17/24 18:00 09/28/24 21:43 5 ML Albuterol 2.5 mg Q4HWA NEB 09/17/24 18:00 09/28/24 21:56 2.5 MG Ipratropium [place] 0.5 mg Q4HWA NEB 09/17/24 18:00 09/28/24 21:56 0.5 MG Melatonin 10 mg QHSP PRN PO 09/20/24 15:15 09/23/24 21:58 10 MG Potassium Chloride 10 meq DAILY PO 09/23/24 10:00 09/28/24 10:08 10 MEQ Enalaprilat 1.25 mg Q6HP PRN IV 09/22/24 13:00 Morphine Sulfate 1 mg Q4HP PRN IV 09/22/24 14:15 09/28/24 22:04 1 MG Apixaban 5 mg BID PO 09/23/24 22:00 09/28/24 21:46 5 MG Piperacillin Sod/ Tazobactam Sod 100 ml @ 25 mls/hr Q8H IV 09/24/24 20:00 09/28/24 21:43 25 MLS/HR Furosemide 40 mg DAILY IV 09/27/24 10:00 09/27/24 10:01 40 MG objective Gen.: Patient lying in bed in no apparent distress. On supplemental oxygen. Head: Normocephalic, atraumatic. Eyes: EOMI/PERRLA. Ears: Normal hearing. Normal anatomy. Neck/trachea: Trachea midline, supple. Nose: Normal external anatomy. Mouth: Moist mucous membranes. Chest: Decreased air entry bilaterally. No wheezing or rhonchi. Positive crackles. Cardiovascular: Positive S1, positive S2. Regular rate and rhythm. Abdomen: Positive bowel sounds in all 4 quadrants. Soft, non-tender, non- distended. : Deferred. Rectal: Deferred. Skin: Warm, dry. Intact. Extremities: 2+ radial pulses bilaterally. No lower extremity edema. Neuro: Awake, alert, oriented x3. No gross motor or sensory deficits. Cranial nerves II through XII intact. Gait not assessed. laboratory and microbiology Laboratory Tests 09/28/24 06:10 09/24/24 15:36 Test 09/24/24 15:36 Range/Units Serum Glucose 122 H 74-106 mg/dL Assessment/Plan Impression: Acute hypoxic respiratory failure Pneumonia COPD Emphysema, paraseptal and centrilobular Fibroid atelectatic opacities in the right middle lobe, lingula and bilateral lower lobes. Calcified pleural plaques in the right upper lobe and posterior aspects of the lower lobes bilaterally Pleural effusions, Atelectasis Hyponatremia Events: Remains on supplemental O2 at 3 LPM NC Taper O2 as tolerated Incentive spirometry Continue bronchodilators/Mucomyst NTS PRN. Continue antibiotics - Zosyn. Continue antifungal - Micafungin. Wound care Head of bed elevation Aspiration precautions Continue Eliquis for AFib. Continue diuresis w/ Lasix QD Monitor renal function. Monitor ins and outs Maintain euvolemia Potassium supplementation Lara d/t urinary retention. HERSON resolved after Lara placement - HERSON likely due to urine retention. Disposition per hospitalist. Labs and imaging reviewed. Rest of plan as noted below. Plan: Supplemental oxygen Keep O2 saturation above 92% CT chest report and images reviewed. Emphysematous changes. Fibro atelectatic opacity in the right middle lobe, lingula and bilateral lower lobes. Calcified plaques in the right upper and bilateral lower lobes and posteriorly. Minimal pleural effusions and atelectasis. Antibiotics. Monitor WBC count. Blood cultures show no growth. Continue bronchodilators as needed. Pain control. Avoid over-sedation. Incentive spirometry. IV fluids at 60 mL an hour. Monitor renal function. Monitor electrolytes. Supplement as necessary. Hyponatremia - Monitor sodium DVT prophylaxis Prognosis: Guarded given multiple comorbidities. Rest of plan per hospitalist and other consultants. Thank you Dr. Reed for allowing me to participate in this patient's care. Further recommendations will depend on patient's clinical course. Please do not hesitate to contact me if you have any questions or concerns. This medical document was created using an electronic medical record system with [employer] dictation system. Although this document has been carefully reviewed, there may still be some phonetic and typographical errors. These areas are purely typographical due to imperfections of the software programs, and do not reflect any compromise in the patient's medical care. Dietary Evaluation Review Comments: 1) Consider SORAIDA 1 pkt BID for wounds 2) Continue current plan of care Expected Outcomes/Goals: F/U in 3-5 days Plan discussed with: Patient, Other (JEANNINE Reyna) TORITO URBAN MD Sep 28, 2024 23:35
[2024-09-29] VITALS (19 sets, daily range): BP systolic 97–133; BP diastolic 47–62; PULSE 74–91; RESP 16–40; TEMP 97.5–98.2; O2SAT 94–100
[2024-09-29 06:30] LABS: Basophils # (auto) 0 10 ^3/uL (0-0.2); Eosinophils # (auto) 0.1 10 ^3/uL (0-0.8); Lymphocytes # (auto) 0.5 10 ^3/uL (0.4-5.4)
[2024-09-29 06:32] LABS: Basophils % (auto) 0.3 % (0.0-2.0); Eosinophils % (auto) 0.9 % (0.0-7.0); Hematocrit 30.5 % (41.0-53.0); Lymphocytes % (auto) 3.7 % (10.0-50.0); Mean Corpuscular Hemoglobin 29.6 pg (28.0-32.0); Mean Corpuscular Hgb Conc. 32.8 g/dL (32.0-36.0); Mean Corpuscular Volume 90.3 fL (80.0-100.0); Monocytes # (auto) 1.1 10 ^3/uL (0-1.3); Monocytes % (auto) 7.5 % (0.0-12.0); Neutrophils # (auto) 13.1 10 ^3/uL (1.6-8.6); Neutrophils % (auto) 87.6 % (37.0-80.0); Red Blood Cells 3.38 10^6/uL (4.5-5.90); White Blood Cell 14.9 10^3/uL (4.4-10.8)
[2024-09-29 06:41] LABS: Platelet Count (auto) 872 10^3/uL (140-450)
--- NOTE | 2024-09-29 09:57 | DVHPN2 ---
Subjective Patient more alert and oriented today. No respiratory distress noted Reviewed: Care Plan, H&P, Labs Changes from previous H/P or p: No Changes Eyes: No Pain, No Vision change, No Conjunctivae inflammation, No Eyelid inflammation, No Other, No Redness ENT: No Ear pain, No Ear discharge, No Nose pain, No Nose discharge, No Nose congestion, No Mouth pain, No Mouth swelling, No Throat pain, No Throat swelling, No Other Cardiovascular: No Chest Pain, No Palpitations, No Orthopnea, No Paroxysmal Noc. Dyspnea, No Edema, No Lt Headedness, No Other Respiratory: No Cough, No Dry; Shortness of breath, SOB with excertion; No Wheezing, No Hemoptysis, No Pleuritic Pain, No Sputum; Other (SOB at rest) Gastrointestinal: Nausea; No Vomiting, No Abdominal Pain, No Diarrhea; C onstipation; No Melena, No Hematochezia; Other (Poor appetite) Genitourinary: No Dysuria, No Frequency, No Incontinence, No Hematuria, No Retention, No Other Musculoskeletal: No other, No neck pain, No shoulder pain, No arm pain, No back pain, No hand pain, No leg pain, No foot pain Skin: No Rash, No Lesions, No Jaundice, No Bruising, No Other Objective Vitals Vital Signs Date Time Temp Pulse Resp B/P (MAP) Pulse Ox O2 Delivery O2 Flow Rate FiO2 09/29/24 07:46 79 18 100 09/29/24 07:40 Nasal Cannula 2.0 09/29/24 07:40 28 09/29/24 05:00 97.5 109/62 (78) 97.5 Intake/Output Intake and Output 09/29/24 07:00 Intake Total 900 ml Output Total 725 ml Balance 175 ml Intake Oral 700 ml IV Total 200 ml Output Urine Total 725 ml General Appearance: Alert, Oriented X3, Cooperative, mild distress HEENT: Atraumatic, PERRLA Lungs: Clear to auscultation Cardiovascular: Normal S1, Normal S2 Abdomen: Normal bowel sounds Genitourinary: No Apparent Abnormalities Musculoskeletal: Normal sensory function, Normal motor function Neuro: Normal speech, Cranial nerves 3-12 NL Skin: Dry, Intact Psych/Mental Status: Mental status NL, Mood NL Medications Current Medications Medications Dose Ordered Sig/Cathy Route Start Time Stop Time Status Last Admin Dose Admin Albuterol 2.5 mg Q4HPRN PRN NEB 09/10/24 06:30 09/22/24 02:04 2.5 MG Ipratropium [place] 0.5 mg Q4HPRN PRN NEB 09/10/24 06:30 09/22/24 02:04 0.5 MG Vancomycin HCl 0 ml @ 0 mls/hr UD IV 09/10/24 06:30 Cancel Ondansetron HCl 4 mg Q4HP PRN IV 09/10/24 06:30 Docusate Sodium 100 mg BIDPRN PRN PO 09/10/24 06:30 09/11/24 09:53 100 MG Acetaminophen 650 mg Q6HP PRN PO 09/10/24 06:30 09/22/24 08:01 650 MG Nitroglycerin 0.4 mg Q5MINP PRN SL 09/10/24 06:30 Enoxaparin Sodium 70 mg Q12HR SC 09/13/24 22:00 UNV Enteral Nutritional Formula 240 ml TIDWM PO 09/16/24 18:00 09/28/24 17:44 240 ML Nystatin 5 ml QID MT 09/17/24 18:00 09/28/24 21:43 5 ML Albuterol 2.5 mg Q4HWA NEB 09/17/24 18:00 09/29/24 07:40 2.5 MG Ipratropium [place] 0.5 mg Q4HWA [facility] 09/17/24 18:00 09/29/24 07:40 0.5 MG Melatonin 10 mg QHSP PRN PO 09/20/24 15:15 09/23/24 21:58 10 MG Potassium Chloride 10 meq DAILY PO 09/23/24 10:00 09/28/24 10:08 10 MEQ Enalaprilat 1.25 mg Q6HP PRN IV 09/22/24 13:00 Morphine Sulfate 1 mg Q4HP PRN IV 09/22/24 14:15 09/28/24 22:04 1 MG Apixaban 5 mg BID PO 09/23/24 22:00 09/28/24 21:46 5 MG Piperacillin Sod/ Tazobactam Sod 100 ml @ 25 mls/hr Q8H IV 09/24/24 20:00 09/29/24 03:58 25 MLS/HR Furosemide 40 mg DAILY IV 09/27/24 10:00 09/27/24 10:01 40 MG Laboratory Results Laboratory Tests 09/24/24 15:36 09/29/24 06:13 Urinalysis Test 09/10/24 04:47 09/14/24 08:00 Urine Color Yellow (Yellow) Urine Clarity Clear (Clear) Urine pH 6.0 (5.0-9.0) Urine Specific [place] 1.031 (1.001-1.035) Urine Protein 1+ (Negative) H Urine Ketones Trace (Negative) Urine Blood Negative /uL (Negative) Urine Nitrite Negative (Negative) Urine Bilirubin Negative (Negative) Urine Urobilinogen 2 mg/dL (Negative) H Urine Leukocyte Esterase Negative /uL (Negative) Urine RBC 3 /hpf (0 - 3) Urine WBC 3 /hpf (0 - 3) Urine Squamous Epithelial Cells None seen /hpf (<5) Urine Bacteria None seen /hpf (None Seen) Urine Mucus Few (None Seen) Urine Glucose Normal mg/dL (Normal) Urine Osmolality 405 mOsm/kg Urine Creatinine 40.31 mg/dL (30.0-125.0) Urine Protein/Creatinine Ratio 0.54 Urine Sodium 24 mmol/L (40-220) L Urine Total Protein 21.7 mg/dL (1-14) H Microbiology Microbiology Date/Time Source Procedure Growth Status 09/18/24 14:50 Blood Blood Culture - Final NO GROWTH AFTER 5 DAYS OF INCUBATION. Complete 09/16/24 20:50 Sputum Gram Stain - Final Complete 09/16/24 20:50 Respiratory Culture - Final Presumptive Desirae albicans Complete 09/13/24 09:50 Nose MRSA Screen - Final Complete Labs and/or images reviewed: Labs reviewed by me, Image(s) reviewed by me Assessment/Plan Assessment/Plan Plan: -sepsis -pneumonia -necrotizing lymph node -bullous emphysema -acute hypoxic respiratory failure -nicotine dependence -atelectasis -hyponatremia -pulmonary mass, rule out CA -DVT to cephalic vein Deep tissue injury to coccyx Plan: Events: No events overnight. WBC increasing. Recheck blood culture and UA/UC. -continue Eliquis -ID consultation : Recommendations reviewed -pulmonary consultation : Recommendations review -continue current antimicrobial regimen -change to pureed diet with supplementation -bronchodilators -PUD, DVT prophylaxis -repeat labs in a.m. -social service consultation to assist with discharge planning. Patient will require IV antibiotics. After further discussion with the patient yesterday, patient may be placed on hospice. Total time spent with patient discussing and formulating plan of care: 35 minutes. This medical document was created using an electronic medical record system with [employer] dictation system. Although this document has been carefully reviewed, there may still be some phonetic and typographical errors. These areas are purely typographical due to imperfections of the software programs, and do not reflect any compromise in the patient's medical care. Plan discussed with: Patient, Other (RN) My Orders Orders - KYUNG KENDRICK NP Procedure Category Date Status Time Chest Xray 1 View XY 09/28/24 Resulted 13:40 Blood Culture MATTHEW 09/29/24 Logged 09:47 Urinalysis LAB 09/29/24 Logged 09:47 Urine Bacterial MATTHEW 09/29/24 Logged Culture 09:47 Date of Service: Sep 29, 2024 Billing Provider: KYUNG KENDRICK NP Common Visit Codes: [id number] INP/OBS CARE(HIGH) KYUNG KENDRICK NP Sep 29, 2024 09:57
--- NOTE | 2024-09-29 20:33 | DVHPN2 ---
Progress Note - Dictate Date Seen: Sep 29, 2024 Medical Necessity Reason Pt with a Central, PICC or Fol: Yes The following are medically ne: Lara Catheter Reason for lara catheter: Strict I&O Subjective Patient seen and examined at bedside. Remains on supplemental oxygen Overnight events reviewed. vital signs Vital Sign Date Time Temp Pulse Resp B/P (MAP) Pulse Ox O2 Delivery O2 Flow Rate FiO2 09/29/24 20:00 Nasal Cannula* 3 32 09/29/24 19:16 75 18 100 09/29/24 16:37 97.8 102/47 (65) 97.8 Total Intake and Output 09/28/24 09/28/24 09/29/24 15:00 23:00 07:00 Intake Total 400 ml 500 ml Output Total 375 ml 350 ml Balance 400 ml 125 ml -350 ml medications Current Medications Medications Dose Ordered Sig/Cathy Route Start Time Stop Time Status Last Admin Dose Admin Albuterol 2.5 mg Q4HPRN PRN NEB 09/10/24 06:30 09/22/24 02:04 2.5 MG Ipratropium [place] 0.5 mg Q4HPRN PRN NEB 09/10/24 06:30 09/22/24 02:04 0.5 MG Vancomycin HCl 0 ml @ 0 mls/hr UD IV 09/10/24 06:30 Cancel Ondansetron HCl 4 mg Q4HP PRN IV 09/10/24 06:30 Docusate Sodium 100 mg BIDPRN PRN PO 09/10/24 06:30 09/11/24 09:53 100 MG Acetaminophen 650 mg Q6HP PRN PO 09/10/24 06:30 09/22/24 08:01 650 MG Nitroglycerin 0.4 mg Q5MINP PRN SL 09/10/24 06:30 Enoxaparin Sodium 70 mg Q12HR SC 09/13/24 22:00 UNV Enteral Nutritional Formula 240 ml TIDWM PO 09/16/24 18:00 09/29/24 18:18 240 ML Nystatin 5 ml QID MT 09/17/24 18:00 09/29/24 18:17 5 ML Albuterol 2.5 mg Q4HWA NEB 09/17/24 18:00 09/29/24 19:14 2.5 MG Ipratropium [place] 0.5 mg Q4HWA NEB 09/17/24 18:00 09/29/24 19:14 0.5 MG Melatonin 10 mg QHSP PRN PO 09/20/24 15:15 09/23/24 21:58 10 MG Potassium Chloride 10 meq DAILY PO 09/23/24 10:00 09/29/24 10:18 10 MEQ Enalaprilat 1.25 mg Q6HP PRN IV 09/22/24 13:00 Morphine Sulfate 1 mg Q4HP PRN IV 09/22/24 14:15 09/29/24 11:49 1 MG Apixaban 5 mg BID PO 09/23/24 22:00 09/29/24 10:18 5 MG Piperacillin Sod/ Tazobactam Sod 100 ml @ 25 mls/hr Q8H IV 09/24/24 20:00 09/29/24 20:06 25 MLS/HR Furosemide 40 mg DAILY IV 09/27/24 10:00 09/27/24 10:01 40 MG objective Gen.: Patient lying in bed in no apparent distress. On supplemental oxygen. Head: Normocephalic, atraumatic. Eyes: EOMI/PERRLA. Ears: Normal hearing. Normal anatomy. Neck/trachea: Trachea midline, supple. Nose: Normal external anatomy. Mouth: Moist mucous membranes. Chest: Decreased air entry bilaterally. No wheezing or rhonchi. Positive crackles. Cardiovascular: Positive S1, positive S2. Regular rate and rhythm. Abdomen: Positive bowel sounds in all 4 quadrants. Soft, non-tender, non- distended. : Deferred. Rectal: Deferred. Skin: Warm, dry. Intact. Extremities: 2+ radial pulses bilaterally. No lower extremity edema. Neuro: Awake, alert, oriented x3. No gross motor or sensory deficits. Cranial nerves II through XII intact. Gait not assessed. laboratory and microbiology Laboratory Tests 09/29/24 06:13 09/24/24 15:36 Test 09/24/24 15:36 Range/Units Serum Glucose 122 H 74-106 mg/dL Assessment/Plan Impression: Acute hypoxic respiratory failure Pneumonia COPD Emphysema, paraseptal and centrilobular Fibroid atelectatic opacities in the right middle lobe, lingula and bilateral lower lobes. Calcified pleural plaques in the right upper lobe and posterior aspects of the lower lobes bilaterally Pleural effusions, Atelectasis Hyponatremia Events: Remains on supplemental O2 at 3 LPM NC Taper O2 as tolerated Incentive spirometry Continue bronchodilators NTS PRN. Continue antibiotics - Zosyn. Continue antifungal - Micafungin. Wound care Head of bed elevation Aspiration precautions Continue Eliquis for AFib. Diurese w/ Lasix as tolerated - on hold d/t low blood pressure. Monitor renal function. Monitor ins and outs Maintain euvolemia Potassium supplementation Lara d/t urinary retention. HERSON resolved after Lara placement - HERSON likely due to urine retention. Disposition per hospitalist. Labs and imaging reviewed. Rest of plan as noted below. Plan: Supplemental oxygen Keep O2 saturation above 92% CT chest report and images reviewed. Emphysematous changes. Fibro atelectatic opacity in the right middle lobe, lingula and bilateral lower lobes. Calcified plaques in the right upper and bilateral lower lobes and posteriorly. Minimal pleural effusions and atelectasis. Antibiotics. Monitor WBC count. Blood cultures show no growth. Continue bronchodilators as needed. Pain control. Avoid over-sedation. Incentive spirometry. IV fluids at 60 mL an hour. Monitor renal function. Monitor electrolytes. Supplement as necessary. Hyponatremia - Monitor sodium DVT prophylaxis Prognosis: Guarded given multiple comorbidities. Rest of plan per hospitalist and other consultants. Thank you Dr. Reed for allowing me to participate in this patient's care. Further recommendations will depend on patient's clinical course. Please do not hesitate to contact me if you have any questions or concerns. This medical document was created using an electronic medical record system with [employer] dictation system. Although this document has been carefully reviewed, there may still be some phonetic and typographical errors. These areas are purely typographical due to imperfections of the software programs, and do not reflect any compromise in the patient's medical care. Dietary Evaluation Review Comments: 1) Consider SORAIDA 1 pkt BID for wounds 2) Continue current plan of care Expected Outcomes/Goals: F/U in 3-5 days Plan discussed with: Patient, Other (JEANNINE Pena) TORITO URBAN MD Sep 29, 2024 20:33
--- NOTE | 2024-09-29 23:04 | DVHPN2 ---
Consult Progress Note Date Seen: Sep 29, 2024 Subjective Patient reports: Feels better (remains on 3LNC, hypercarbic) Objective vital signs Vital Sign Date Time Temp Pulse Resp B/P (MAP) Pulse Ox O2 Delivery O2 Flow Rate FiO2 09/29/24 22:28 77 34 104/51 09/29/24 21:00 98.0 97 98.0 09/29/24 20:00 Nasal Cannula* 3 32 Total Intake and Output 09/28/24 09/28/24 09/29/24 15:00 23:00 07:00 Intake Total 400 ml 500 ml Output Total 375 ml 350 ml Balance 400 ml 125 ml -350 ml medications Current Medications Medications Dose Ordered Sig/Cathy Route Start Time Stop Time Status Last Admin Dose Admin Albuterol 2.5 mg Q4HPRN PRN NEB 09/10/24 06:30 09/22/24 02:04 2.5 MG Ipratropium [place] 0.5 mg Q4HPRN PRN NEB 09/10/24 06:30 09/22/24 02:04 0.5 MG Vancomycin HCl 0 ml @ 0 mls/hr UD IV 09/10/24 06:30 Cancel Ondansetron HCl 4 mg Q4HP PRN IV 09/10/24 06:30 Docusate Sodium 100 mg BIDPRN PRN PO 09/10/24 06:30 09/11/24 09:53 100 MG Acetaminophen 650 mg Q6HP PRN PO 09/10/24 06:30 09/22/24 08:01 650 MG Nitroglycerin 0.4 mg Q5MINP PRN SL 09/10/24 06:30 Enoxaparin Sodium 70 mg Q12HR SC 09/13/24 22:00 UNV Enteral Nutritional Formula 240 ml TIDWM PO 09/16/24 18:00 09/29/24 18:18 240 ML Nystatin 5 ml QID MT 09/17/24 18:00 09/29/24 18:17 5 ML Albuterol 2.5 mg Q4HWA NEB 09/17/24 18:00 09/29/24 19:14 2.5 MG Ipratropium [place] 0.5 mg Q4HWA NEB 09/17/24 18:00 09/29/24 19:14 0.5 MG Melatonin 10 mg QHSP PRN PO 09/20/24 15:15 09/29/24 22:45 10 MG Potassium Chloride 10 meq DAILY PO 09/23/24 10:00 09/29/24 10:18 10 MEQ Enalaprilat 1.25 mg Q6HP PRN IV 09/22/24 13:00 Morphine Sulfate 1 mg Q4HP PRN IV 09/22/24 14:15 09/29/24 21:58 1 MG Apixaban 5 mg BID PO 09/23/24 22:00 09/29/24 21:55 5 MG Piperacillin Sod/ Tazobactam Sod 100 ml @ 25 mls/hr Q8H IV 09/24/24 20:00 09/29/24 20:06 25 MLS/HR Furosemide 40 mg DAILY IV 09/27/24 10:00 09/27/24 10:01 40 MG Physical Exam: General: NAD Neck: Supple. No masses. HEENT: PERRL. Normal lids and conjunctiva. Moist mucous membranes. Oropharynx without lesions, exudates or excessive erythema. Normal appearance of the external aspects of the nose and ears. Heart: Regular rhythm, normal rate. No murmur. No lower extremity edema. Lungs: Normal respiratory effort. Clear to auscultation bilaterally. No wheezes. No crackles. Abdomen: Soft. Non-tender. Non-distended. No masses or abdominal hernia. Msk: No digital cyanosis. Normal strength and tone in all 4 limbs. Skin: Warm and dry, no rashes. Lesion on right dorsal foot as described. Neuro: Alert. No facial droop or slurred speech. Extra-ocular movements intact. Sensation intact to soft touch in all 4 limbs. Psych: Appropriate mood. Full affect. Oriented to person, place, time, and situation. Lines: laboratory and microbiology Laboratory Tests 09/29/24 06:13 09/24/24 15:36 Test 09/24/24 15:36 Range/Units Serum Glucose 122 H 74-106 mg/dL Problem List/Assessment/Plan Problem List/Assessment/Plan ID Problem List: -- Generalized weakness -- Fall with head injury -- Multifocal pneumonia -- Leukocytosis -- COPD exacerbation -- Hyponatremia -- Stage 2 sacral ulcers -- Tobacco use disorder Assessment This is a 79 y.o. male with a past medical history of asthma, COPD, and depression, who presents with generalized weakness and a fall resulting in a forehead abrasion. He has been experiencing loss of appetite, no bowel movements, and shortness of breath. Laboratory findings show leukocytosis with a WBC count of 35.6??10?/L, thrombocytosis with platelets at 539??10?/L, hyponatremia with sodium at 120?mmol/L, BUN of 22?mg/dL, creatinine of 0.6?mg/dL, glucose of 102?mg/dL, lactic acid of 1.5?mmol/L, and hemoglobin of 13.7?g/dL. CT head showed no acute abnormality. Chest CT revealed thyromegaly and extensive alveolar and parenchymal infiltrates in both lungs, seen in the right middle lobe, lingula, and both lower lobes. He was started empirically on vancomycin and ceftriaxone; azithromycin was later added. The patient has stage 2 sacral ulcers, non-purulent and non-eroded. 09/13: On imaging his doppler lower extemity ultrasound shows a nonocclusive thrombo scene in the proximal left superficial fomoral vein. CT of lungs which showed no pulmonary embolism. diffuse abnormal tissue density in posterior media steinum extened from the upper thorax to diaphragmatic hiatus with small air bubbles thats increased in size compared to last exam, which could represent nectrotic adenopathy abscess or esophageal injury or rupture. component on the left at the diaphragmatic hiatus is recommended , smoking related lung disease , patchy eclecticism consolidation. 09/14: white count remains elevated at 33. Dr choi from oncology saw patinet and suggent proliferative disorder is a possiblility but will asses after antibiotics, as well as consider a biopsy after a few weeks. MRSA nares came negative. 09/15: white count is slowing coming down and a backorder of levofloxacin 09/16: white count is slowly downtrending now at 28, 2 liters nasal canula 09/17: Patient was able to produce and induced sputum sample and so far results are with no growth 09/21: White count continues to downtrend now at 13 09/22: white count is 17.2 , chest xray shows stable mass like opacities in both lungs , had a biopsy done of a left pair of veterebral mass , 5 core biopsies were obtained 09/23: white count is elevated at 18 , chest x-ray showed stable mass capacities throughout both lungs, patient is negative for HIV 09/24: Chest xray shows plural classifications and airspace opacities appear to be similar to prior examination. stable blunting of constophrenic agles , appears overall stable but on more oxygen then what he came in with . getting bicarbonate greater than 40 09/25: white count is 10.3 , significant improvement fungal serolgies and quant tb is negative Plan: - restart vancomycin empirically for presumed HAP, repeat sputum cutlure - patient appears to be responding to therapy , continue Zosyn - IV piccline placement and IV Zosyn continue therapy for 2 weeks - patients augmented renal function - follow up on pathology results for the biopsy specimen of mass in lungs -- Status post lymph node biopsy will follow up on pathology results -- will fu on sputum culture -- patient started on eliquis for DVT for 3 months -- patient should follow up with infectious disease for chest Ct to see if necrotic lymph node resolved -- Implement wound care for stage 2 sacral ulcers. -- Monitor vital signs and oxygen saturation. Isolation Precautions: Standard Plan discussed with: Patient Dietary Evaluation Review Comments: 1) Consider SORAIDA 1 pkt BID for wounds 2) Continue current plan of care Expected Outcomes/Goals: F/U in 3-5 days SHELBY OQUENDO MD Sep 29, 2024 23:04
[2024-09-29] MEDS ORDERED: VANCOMYCIN PER PHARMACY 0 MG IV SCH (23:15)
[2024-09-30] VITALS (19 sets, daily range): BP systolic 94–113; BP diastolic 31–52; PULSE 71–94; RESP 16–40; TEMP 97.3–98.4; O2SAT 87–100
[2024-09-30] MEDS: VANCOMYCIN 1GM/200ML PREMIX IV ONE
[2024-09-30 06:21] LABS: Urine Bacteria None Seen /hpf (None Seen)
[2024-09-30 06:31] LABS: Urine Blood 1+ /uL (Negative); Urine Clarity Turbid (Clear); Urine Color Yellow (Yellow); Urine Hyaline Cast MANY /lpf (0 - 2); Urine Mucus FEW (None Seen); Urine Protein, UAD 1+ (Negative); Urine Specific Gravity 1.032 (1.001-1.035); Urine Urobilinogen 12 mg/dL (Negative); Urine WBC 9 /hpf (0 - 3)
--- NOTE | 2024-09-30 11:08 | DVHPN2 ---
Subjective Patient more alert and oriented today. No respiratory distress noted Reviewed: Care Plan, H&P, Labs Changes from previous H/P or p: No Changes Eyes: No Pain, No Vision change, No Conjunctivae inflammation, No Eyelid inflammation, No Other, No Redness ENT: No Ear pain, No Ear discharge, No Nose pain, No Nose discharge, No Nose congestion, No Mouth pain, No Mouth swelling, No Throat pain, No Throat swelling, No Other Cardiovascular: No Chest Pain, No Palpitations, No Orthopnea, No Paroxysmal Noc. Dyspnea, No Edema, No Lt Headedness, No Other Respiratory: No Cough, No Dry; Shortness of breath, SOB with excertion; No Wheezing, No Hemoptysis, No Pleuritic Pain, No Sputum; Other (SOB at rest) Gastrointestinal: Nausea; No Vomiting, No Abdominal Pain, No Diarrhea; C onstipation; No Melena, No Hematochezia; Other (Poor appetite) Genitourinary: No Dysuria, No Frequency, No Incontinence, No Hematuria, No Retention, No Other Musculoskeletal: No other, No neck pain, No shoulder pain, No arm pain, No back pain, No hand pain, No leg pain, No foot pain Skin: No Rash, No Lesions, No Jaundice, No Bruising, No Other Objective Vitals Vital Signs Date Time Temp Pulse Resp B/P (MAP) Pulse Ox O2 Delivery O2 Flow Rate FiO2 09/30/24 10:48 72 18 100 09/30/24 10:00 102/43 09/30/24 09:10 98.0 98.0 09/30/24 06:19 Nasal Cannula 3.0 09/30/24 06:19 32 Intake/Output Intake and Output 09/30/24 07:00 Intake Total 1775 ml Output Total 650 ml Balance 1125 ml Intake Oral 1275 ml IV Total 500 ml Output Urine Total 650 ml General Appearance: Alert, Oriented X3, Cooperative, mild distress HEENT: Atraumatic, PERRLA Lungs: Clear to auscultation Cardiovascular: Normal S1, Normal S2 Abdomen: Normal bowel sounds Genitourinary: No Apparent Abnormalities Musculoskeletal: Normal sensory function, Normal motor function Neuro: Normal speech, Cranial nerves 3-12 NL Skin: Dry, Intact Psych/Mental Status: Mental status NL, Mood NL Medications Current Medications Medications Dose Ordered Sig/Cathy Route Start Time Stop Time Status Last Admin Dose Admin Albuterol 2.5 mg Q4HPRN PRN NEB 09/10/24 06:30 09/22/24 02:04 2.5 MG Ipratropium [place] 0.5 mg Q4HPRN PRN NEB 09/10/24 06:30 09/22/24 02:04 0.5 MG Vancomycin HCl 0 ml @ 0 mls/hr UD IV 09/10/24 06:30 Cancel Ondansetron HCl 4 mg Q4HP PRN IV 09/10/24 06:30 Docusate Sodium 100 mg BIDPRN PRN PO 09/10/24 06:30 09/11/24 09:53 100 MG Acetaminophen 650 mg Q6HP PRN PO 09/10/24 06:30 09/30/24 00:01 650 MG Nitroglycerin 0.4 mg Q5MINP PRN SL 09/10/24 06:30 Enoxaparin Sodium 70 mg Q12HR SC 09/13/24 22:00 UNV Enteral Nutritional Formula 240 ml TIDWM PO 09/16/24 18:00 09/30/24 08:10 240 ML Nystatin 5 ml QID MT 09/17/24 18:00 09/29/24 18:17 5 ML Albuterol 2.5 mg Q4HWA NEB 09/17/24 18:00 09/30/24 10:38 2.5 MG Ipratropium [place] 0.5 mg Q4HWA NEB 09/17/24 18:00 09/30/24 10:38 0.5 MG Melatonin 10 mg QHSP PRN PO 09/20/24 15:15 09/29/24 22:45 10 MG Potassium Chloride 10 meq DAILY PO 09/23/24 10:00 09/30/24 10:55 10 MEQ Enalaprilat 1.25 mg Q6HP PRN IV 09/22/24 13:00 Morphine Sulfate 1 mg Q4HP PRN IV 09/22/24 14:15 09/29/24 21:58 1 MG Apixaban 5 mg BID PO 09/23/24 22:00 09/30/24 10:56 5 MG Piperacillin Sod/ Tazobactam Sod 100 ml @ 25 mls/hr Q8H IV 09/24/24 20:00 09/30/24 03:52 25 MLS/HR Furosemide 40 mg DAILY IV 09/27/24 10:00 09/27/24 10:01 40 MG Vancomycin HCl 0 ml @ 0 mls/hr UD IV 09/29/24 23:15 Vancomycin HCl 200 ml @ 200 mls/hr Q12H IV 09/30/24 10:00 Laboratory Results Laboratory Tests 09/24/24 15:36 09/29/24 06:13 Coagulation Test 09/30/24 11:00 Prothrombin Time Pending Prothrombin Time INR Pending Activated Partial Thromboplast Time Pending Urinalysis Test 09/14/24 08:00 09/30/24 06:15 Urine Osmolality 405 mOsm/kg Urine Creatinine 40.31 mg/dL (30.0-125.0) Urine Protein/Creatinine Ratio 0.54 Urine Sodium 24 mmol/L (40-220) L Urine Total Protein 21.7 mg/dL (1-14) H Urine Color Yellow (Yellow) Urine Clarity Turbid (Clear) H Urine pH 7.0 (5.0-9.0) Urine Specific [place] 1.032 (1.001-1.035) Urine Protein 1+ (Negative) H Urine Ketones Negative (Negative) Urine Blood 1+ /uL (Negative) H Urine Nitrite Negative (Negative) Urine Bilirubin Negative (Negative) Urine Urobilinogen 12 mg/dL (Negative) H Urine Leukocyte Esterase Negative /uL (Negative) Urine RBC 30 /hpf (0 - 3) Urine WBC 9 /hpf (0 - 3) Urine Squamous Epithelial Cells Few /hpf (<5) Urine Bacteria None seen /hpf (None Seen) Urine Hyaline Casts Many /lpf (0 - 2) Urine Mucus Few (None Seen) Urine Glucose Normal mg/dL (Normal) Microbiology Microbiology Date/Time Source Procedure Growth Status 09/29/24 10:55 Blood Blood Culture - Preliminary NO GROWTH AFTER 24 HOURS OF INCUBATION. Resulted 09/16/24 20:50 Sputum Gram Stain - Final Complete 09/16/24 20:50 Respiratory Culture - Final Presumptive Desirae albicans Complete 09/13/24 09:50 Nose MRSA Screen - Final Complete Labs and/or images reviewed: Labs reviewed by me, Image(s) reviewed by me Assessment/Plan Assessment/Plan Plan: -sepsis -pneumonia -necrotizing lymph node -bullous emphysema -acute hypoxic respiratory failure -nicotine dependence -atelectasis -hyponatremia -pulmonary mass, rule out CA -DVT to cephalic vein -Deep tissue injury to coccyx -cachexia Plan: Events: Labs pending today. Clinically no change. Discontinue Hurst catheter. Based on labs today, if WBC increasing, we will change antibiotic therapy to empiric coverage. -continue Eliquis -ID consultation : Recommendations reviewed -pulmonary consultation : Recommendations reviewed -continue current antimicrobial regimen -change to pureed diet with supplementation -bronchodilators -PUD, DVT prophylaxis -repeat labs in a.m. -social service consultation to assist with discharge planning. Patient will require IV antibiotics. After further discussion with the patient yesterday, patient may be placed on hospice. Total time spent with patient discussing and formulating plan of care: 35 minutes. This medical document was created using an electronic medical record system with [employer] system. Although this document has been carefully reviewed, there may still be some phonetic and typographical errors. These areas are purely typographical due to imperfections of the software programs, and do not reflect any compromise in the patient's medical care. Plan discussed with: Patient, Other (RN) My Orders Orders - KYUNG KENDRICK NP Procedure Category Date Status Time Basic Metabolic Panel LAB 10/01/24 Verified 05:00 Basic Metabolic Panel LAB 10/02/24 Verified 05:00 Basic Metabolic Panel LAB 10/03/24 Verified 05:00 Complete Blood Count LAB 10/01/24 Verified 05:00 Complete Blood Count LAB 10/02/24 Verified 05:00 Complete Blood Count LAB 10/03/24 Verified 05:00 * Picc Line Consult CONS 09/30/24 Transmitted 10:23 PTPTT LAB 09/30/24 In Process 10:35 Prothrombin Time W/ LAB 09/30/24 In Process INR 10:35 D/C Hurst YOSELYN 09/30/24 Verified 11:05 Date of Service: Sep 30, 2024 Billing Provider: KYUNG KENDRICK NP Common Visit Codes: 12868-[id number] INP/OBS CARE(HIGH) KYUNG KENDRICK NP Sep 30, 2024 11:08
[2024-09-30] MEDS: VANCOMYCIN 1GM/250ML KIT 200 ML IV SCH (11:22)
[2024-09-30 11:29] LABS: INR 1.25 (0.9-1.15); Partial Thromboplastin Time 29.7 SEC (24.5-34.5)
[2024-09-30] MEDS: LIDOCAINE 1% (LOCAL ANESTH.) PF 5ml SDV ID ONE (13:38)
[2024-09-30] MEDS: SODIUM CHLOR 0.9% PF (SALINE LOCK) 10ML VIAL/SYR IV SCH (22:35)
--- NOTE | 2024-09-30 22:56 | DVHPN2 ---
Progress Note - Dictate Date Seen: Sep 30, 2024 Medical Necessity Reason Pt with a Central, PICC or Fol: Yes The following are medically ne: Lara Catheter Reason for lara catheter: Strict I&O Subjective Patient seen and examined at bedside. Remains on supplemental oxygen Overnight events reviewed. vital signs Vital Sign Date Time Temp Pulse Resp B/P (MAP) Pulse Ox O2 Delivery O2 Flow Rate FiO2 09/30/24 22:55 82 18 100 09/30/24 22:46 Nasal Cannula* 1 09/30/24 18:59 108/57 09/30/24 17:12 97.9 97.9 Total Intake and Output 09/29/24 09/29/24 09/30/24 15:00 23:00 07:00 Intake Total 200 ml 975 ml 600 ml Output Total 350 ml 300 ml Balance 200 ml 625 ml 300 ml medications Current Medications Medications Dose Ordered Sig/Cathy Route Start Time Stop Time Status Last Admin Dose Admin Albuterol 2.5 mg Q4HPRN PRN NEB 09/10/24 06:30 09/22/24 02:04 2.5 MG Ipratropium [place] 0.5 mg Q4HPRN PRN NEB 09/10/24 06:30 09/22/24 02:04 0.5 MG Vancomycin HCl 0 ml @ 0 mls/hr UD IV 09/10/24 06:30 Cancel Ondansetron HCl 4 mg Q4HP PRN IV 09/10/24 06:30 Docusate Sodium 100 mg BIDPRN PRN PO 09/10/24 06:30 09/11/24 09:53 100 MG Acetaminophen 650 mg Q6HP PRN PO 09/10/24 06:30 09/30/24 00:01 650 MG Nitroglycerin 0.4 mg Q5MINP PRN SL 09/10/24 06:30 Enoxaparin Sodium 70 mg Q12HR SC 09/13/24 22:00 UNV Enteral Nutritional Formula 240 ml TIDWM PO 09/16/24 18:00 09/30/24 18:23 240 ML Nystatin 5 ml QID MT 09/17/24 18:00 09/29/24 18:17 5 ML Albuterol 2.5 mg Q4HWA NEB 09/17/24 18:00 09/30/24 22:46 2.5 MG Ipratropium [place] 0.5 mg Q4HWA NEB 09/17/24 18:00 09/30/24 22:46 0.5 MG Melatonin 10 mg QHSP PRN PO 09/20/24 15:15 09/29/24 22:45 10 MG Potassium Chloride 10 meq DAILY PO 09/23/24 10:00 09/30/24 10:55 10 MEQ Enalaprilat 1.25 mg Q6HP PRN IV 09/22/24 13:00 Morphine Sulfate 1 mg Q4HP PRN IV 09/22/24 14:15 09/30/24 18:59 1 MG Apixaban 5 mg BID PO 09/23/24 22:00 09/30/24 22:32 5 MG Piperacillin Sod/ Tazobactam Sod 100 ml @ 25 mls/hr Q8H IV 09/24/24 20:00 09/30/24 20:44 25 MLS/HR Furosemide 40 mg DAILY IV 09/27/24 10:00 09/27/24 10:01 40 MG Vancomycin HCl 0 ml @ 0 mls/hr UD IV 09/29/24 23:15 Vancomycin HCl 200 ml @ 200 mls/hr Q12H IV 09/30/24 10:00 09/30/24 22:35 200 MLS/HR Sodium Chloride 10 ml QSHIFT@10,22 IV 09/30/24 22:00 09/30/24 22:35 10 ML objective Gen.: Patient lying in bed in no apparent distress. On supplemental oxygen. Head: Normocephalic, atraumatic. Eyes: EOMI/PERRLA. Ears: Normal hearing. Normal anatomy. Neck/trachea: Trachea midline, supple. Nose: Normal external anatomy. Mouth: Moist mucous membranes. Chest: Decreased air entry bilaterally. No wheezing or rhonchi. Positive crackles. Cardiovascular: Positive S1, positive S2. Regular rate and rhythm. Abdomen: Positive bowel sounds in all 4 quadrants. Soft, non-tender, non- distended. : Deferred. Rectal: Deferred. Skin: Warm, dry. Intact. Extremities: 2+ radial pulses bilaterally. No lower extremity edema. Neuro: Awake, alert, oriented x3. No gross motor or sensory deficits. Cranial nerves II through XII intact. Gait not assessed. laboratory and microbiology Laboratory Tests 09/29/24 06:13 09/24/24 15:36 Test 09/24/24 15:36 Range/Units Serum Glucose 122 H 74-106 mg/dL Assessment/Plan Impression: Acute hypoxic respiratory failure Pneumonia COPD Emphysema, paraseptal and centrilobular Fibroid atelectatic opacities in the right middle lobe, lingula and bilateral lower lobes. Calcified pleural plaques in the right upper lobe and posterior aspects of the lower lobes bilaterally Pleural effusions, Atelectasis Hyponatremia Events: Remains on supplemental O2 at 1 LPM NC Taper O2 as tolerated Improved O2 requirements. Incentive spirometry Continue bronchodilators NTS PRN. Continue antibiotics - Zosyn. Continue antifungals Nystatin Pain control Avoid oversedation Wound care Head of bed elevation Aspiration precautions Continue Eliquis for AFib. Ensure for nutritional support. Diurese w/ Lasix as tolerated - on hold d/t low blood pressure. Monitor renal function. Monitor electrolytes. Supplement as necessary. Monitor ins and outs Potassium supplementation Lara d/t urinary retention. HERSON resolved after Lara placement - HERSON likely due to urine retention. Disposition per hospitalist. Labs and imaging reviewed. Rest of plan as noted below. Plan: Supplemental oxygen Keep O2 saturation above 92% CT chest report and images reviewed. Emphysematous changes. Fibro atelectatic opacity in the right middle lobe, lingula and bilateral lower lobes. Calcified plaques in the right upper and bilateral lower lobes and posteriorly. Minimal pleural effusions and atelectasis. Antibiotics. Monitor WBC count. Blood cultures show no growth. Continue bronchodilators as needed. Pain control. Avoid over-sedation. Incentive spirometry. IV fluids at 60 mL an hour. Monitor renal function. Monitor electrolytes. Supplement as necessary. Hyponatremia - Monitor sodium DVT prophylaxis Prognosis: Guarded given multiple comorbidities. Rest of plan per hospitalist and other consultants. Thank you Dr. Reed for allowing me to participate in this patient's care. Further recommendations will depend on patient's clinical course. Please do not hesitate to contact me if you have any questions or concerns. This medical document was created using an electronic medical record system with [employer] system. Although this document has been carefully reviewed, there may still be some phonetic and typographical errors. These areas are purely typographical due to imperfections of the software programs, and do not reflect any compromise in the patient's medical care. Dietary Evaluation Review Comments: 1) Consider SORAIDA 1 pkt BID for wounds 2) Continue current plan of care Expected Outcomes/Goals: F/U in 3-5 days Plan discussed with: Patient, Other (JEANNINE Watts) TORITO URBAN MD Sep 30, 2024 22:56
--- NOTE | 2024-09-30 23:39 | DVHPN2 ---
Consult Progress Note Date Seen: Sep 30, 2024 Subjective Patient reports: Other (on 1 liter nasal canula , continues to express weakness and shortness of breath , pain is imporved and patient is mildly [place] with crackles in lungs bilaterally ) Objective vital signs Vital Sign Date Time Temp Pulse Resp B/P (MAP) Pulse Ox O2 Delivery O2 Flow Rate FiO2 09/30/24 22:55 82 18 100 09/30/24 22:46 Nasal Cannula* 1 09/30/24 19:29 94/45 09/30/24 17:12 97.9 97.9 Total Intake and Output 09/29/24 09/29/24 09/30/24 15:00 23:00 07:00 Intake Total 200 ml 975 ml 600 ml Output Total 350 ml 300 ml Balance 200 ml 625 ml 300 ml medications Current Medications Medications Dose Ordered Sig/Cathy Route Start Time Stop Time Status Last Admin Dose Admin Albuterol 2.5 mg Q4HPRN PRN NEB 09/10/24 06:30 09/22/24 02:04 2.5 MG Ipratropium [place] 0.5 mg Q4HPRN PRN NEB 09/10/24 06:30 09/22/24 02:04 0.5 MG Vancomycin HCl 0 ml @ 0 mls/hr UD IV 09/10/24 06:30 Cancel Ondansetron HCl 4 mg Q4HP PRN IV 09/10/24 06:30 Docusate Sodium 100 mg BIDPRN PRN PO 09/10/24 06:30 09/11/24 09:53 100 MG Acetaminophen 650 mg Q6HP PRN PO 09/10/24 06:30 09/30/24 00:01 650 MG Nitroglycerin 0.4 mg Q5MINP PRN SL 09/10/24 06:30 Enoxaparin Sodium 70 mg Q12HR SC 09/13/24 22:00 UNV Enteral Nutritional Formula 240 ml TIDWM PO 09/16/24 18:00 09/30/24 18:23 240 ML Nystatin 5 ml QID MT 09/17/24 18:00 09/29/24 18:17 5 ML Albuterol 2.5 mg Q4HWA NEB 09/17/24 18:00 09/30/24 22:46 2.5 MG Ipratropium [place] 0.5 mg Q4HWA NEB 09/17/24 18:00 09/30/24 22:46 0.5 MG Melatonin 10 mg QHSP PRN PO 09/20/24 15:15 09/29/24 22:45 10 MG Potassium Chloride 10 meq DAILY PO 09/23/24 10:00 09/30/24 10:55 10 MEQ Enalaprilat 1.25 mg Q6HP PRN IV 09/22/24 13:00 Morphine Sulfate 1 mg Q4HP PRN IV 09/22/24 14:15 09/30/24 18:59 1 MG Apixaban 5 mg BID PO 09/23/24 22:00 09/30/24 22:32 5 MG Piperacillin Sod/ Tazobactam Sod 100 ml @ 25 mls/hr Q8H IV 09/24/24 20:00 09/30/24 20:44 25 MLS/HR Furosemide 40 mg DAILY IV 09/27/24 10:00 09/27/24 10:01 40 MG Vancomycin HCl 0 ml @ 0 mls/hr UD IV 09/29/24 23:15 Vancomycin HCl 200 ml @ 200 mls/hr Q12H IV 09/30/24 10:00 09/30/24 22:35 200 MLS/HR Sodium Chloride 10 ml QSHIFT@10,22 IV 09/30/24 22:00 09/30/24 22:35 10 ML Physical Exam: General: NAD Neck: Supple. No masses. HEENT: PERRL. Normal lids and conjunctiva. Moist mucous membranes. Oropharynx without lesions, exudates or excessive erythema. Normal appearance of the external aspects of the nose and ears. Heart: Regular rhythm, normal rate. No murmur. No lower extremity edema. Lungs: Normal respiratory effort. Clear to auscultation bilaterally. No wheezes. No crackles. Abdomen: Soft. Non-tender. Non-distended. No masses or abdominal hernia. Msk: No digital cyanosis. Normal strength and tone in all 4 limbs. Skin: Warm and dry, no rashes. Lesion on right dorsal foot as described. Neuro: Alert. No facial droop or slurred speech. Extra-ocular movements intact. Sensation intact to soft touch in all 4 limbs. Psych: Appropriate mood. Full affect. Oriented to person, place, time, and situation laboratory and microbiology Laboratory Tests 09/29/24 06:13 09/24/24 15:36 Test 09/24/24 15:36 Range/Units Serum Glucose 122 H 74-106 mg/dL Problem List/Assessment/Plan Problems(with codes): (1) ASTHMA, CHRONIC OBSTRUCTIVE W ASTHMATICUS (2) SHORTNESS OF BREATH (3) COPD (chronic obstructive pulmonary disease) (4) Pneumonia (5) Status asthmaticus (6) Leukocytosis, unspecified (7) Hypertension (8) Hyponatremia (9) Multifocal pneumonia (10) Generalized weakness Problem List/Assessment/Plan ID Problem List: -- Generalized weakness -- Fall with head injury -- Multifocal pneumonia -- Leukocytosis -- COPD exacerbation -- Hyponatremia -- Stage 2 sacral ulcers -- Tobacco use disorder Assessment This is a 79 y.o. male with a past medical history of asthma, COPD, and depression, who presents with generalized weakness and a fall resulting in a forehead abrasion. He has been experiencing loss of appetite, no bowel movements, and shortness of breath. Laboratory findings show leukocytosis with a WBC count of 35.6??10?/L, thrombocytosis with platelets at 539??10?/L, hyponatremia with sodium at 120?mmol/L, BUN of 22?mg/dL, creatinine of 0.6?mg/dL, glucose of 102?mg/dL, lactic acid of 1.5?mmol/L, and hemoglobin of 13.7?g/dL. CT head showed no acute abnormality. Chest CT revealed thyromegaly and extensive alveolar and parenchymal infiltrates in both lungs, seen in the right middle lobe, lingula, and both lower lobes. He was started empirically on vancomycin and ceftriaxone; azithromycin was later added. The patient has stage 2 sacral ulcers, non-purulent and non-eroded. 09/13: On imaging his doppler lower extemity ultrasound shows a nonocclusive thrombo scene in the proximal left superficial fomoral vein. CT of lungs which showed no pulmonary embolism. diffuse abnormal tissue density in posterior media steinum extened from the upper thorax to diaphragmatic hiatus with small air bubbles thats increased in size compared to last exam, which could represent nectrotic adenopathy abscess or esophageal injury or rupture. component on the left at the diaphragmatic hiatus is recommended , smoking related lung disease , patchy eclecticism consolidation. 09/14: white count remains elevated at 33. Dr choi from oncology saw patinet and suggent proliferative disorder is a possiblility but will asses after antibiotics, as well as consider a biopsy after a few weeks. MRSA nares came negative. 09/15: white count is slowing coming down and a backorder of levofloxacin 09/16: white count is slowly downtrending now at 28, 2 liters nasal canula 09/17: Patient was able to produce and induced sputum sample and so far results are with no growth 09/21: White count continues to downtrend now at 13 09/22: white count is 17.2 , chest xray shows stable mass like opacities in both lungs , had a biopsy done of a left pair of veterebral mass , 5 core biopsies were obtained 09/23: white count is elevated at 18 , chest x-ray showed stable mass capacities throughout both lungs, patient is negative for HIV 09/24: Chest xray shows plural classifications and airspace opacities appear to be similar to prior examination. stable blunting of constophrenic agles , appears overall stable but on more oxygen then what he came in with . getting bicarbonate greater than 40 09/25: white count is 10.3 , significant improvement fungal serolgies and quant tb is negative 09/30: white count is 14.9 , thrombocytosis is 872 , concerned that patient is still having an undiagnosed infection that is not being treated adequately. Fungal serologies have come back negative , Tp came back negative and patient is tolerating antibiotic treatments Plan: - repeat sputum culture - empirically start amphotearisin B given rising glucose and tykipnea - follow up on pathology results as this can ultimately help us understand what type of infection is present here - recommend getting CBC and check daily - restart vancomycin empirically for presumed HAP, repeat sputum culture - patient appears to be responding to therapy , continue Zosyn - IV piccline placement and IV Zosyn continue therapy for 2 weeks - patients augmented renal function - follow up on pathology results for the biopsy specimen of mass in lungs -- Status post lymph node biopsy will follow up on pathology results -- will fu on sputum culture -- patient started on eliquis for DVT for 3 months -- patient should follow up with infectious disease for chest Ct to see if necrotic lymph node resolved -- Implement wound care for stage 2 sacral ulcers. -- Monitor vital signs and oxygen saturation. Isolation Precautions: Standard Plan discussed with: Other Dietary Evaluation Review Comments: 1) Consider SORAIDA 1 pkt BID for wounds 2) Continue current plan of care Expected Outcomes/Goals: F/U in 3-5 days SHELBY OQUENDO MD Sep 30, 2024 23:39
[2024-10-01] VITALS (21 sets, daily range): BP systolic 101–121; BP diastolic 43–57; PULSE 70–90; RESP 14–31; TEMP 97.4–98.6; O2SAT 92–100
[2024-10-01 06:28] LABS: Basophils # (auto) 0.1 10 ^3/uL (0-0.2); Eosinophils # (auto) 0.2 10 ^3/uL (0-0.8); Lymphocytes # (auto) 0.8 10 ^3/uL (0.4-5.4)
[2024-10-01 06:31] LABS: Basophils % (auto) 0.4 % (0.0-2.0); Eosinophils % (auto) 0.8 % (0.0-7.0); Hematocrit 28.7 % (41.0-53.0); Hemoglobin 9.6 g/dL (13.5-17.5); Mean Corpuscular Hemoglobin 30.7 pg (28.0-32.0); Mean Corpuscular Hgb Conc. 33.5 g/dL (32.0-36.0); Mean Corpuscular Volume 91.6 fL (80.0-100.0); Monocytes # (auto) 1.3 10 ^3/uL (0-1.3); Monocytes % (auto) 6.2 % (0.0-12.0); Neutrophils # (auto) 17.8 10 ^3/uL (1.6-8.6); Neutrophils % (auto) 88.6 % (37.0-80.0); Red Blood Cells 3.14 10^6/uL (4.5-5.90); Red Cell Distribution Width 14.3 % (11.8-14.3); White Blood Cell 20.1 10^3/uL (4.4-10.8)
[2024-10-01 06:38] LABS: Potassium 3.7 mmol/L (3.5-5.1)
[2024-10-01 06:39] LABS: Anion Gap 6 (5-15)
[2024-10-01 06:41] LABS: Platelet Count (auto) 905 10^3/uL (140-450)
[2024-10-01 06:44] LABS: BUN/Creatinine Ratio 34.9 (10.0-20.0); Blood Urea Nitrogen 15 mg/dL (9-23); Glucose 89 mg/dL (74-106)
[2024-10-01 06:46] LABS: Calcium 8.7 mg/dL (8.7-10.4); Carbon Dioxide 33 mmol/L (20-31); Chloride 95 mmol/L (98-107); Sodium 134 mmol/L (136-145)
--- NOTE | 2024-10-01 09:31 | DVH ---
CLINICAL INFORMATION: 79 years old, Male; ORDER. TECHNIQUE: Single AP portable chest radiograph was obtained. COMPARISON: XY CHEST XRAY 1 VIEW on DOS: 09/28/24, XY CHEST PORTABLE on DOS: 09/24/24, XY CHEST XRAY 1 VIEW on DOS: 09/22/24 FINDINGS: Distal tip of the right PICC reaches the mid SVC. No significant interval change in bilateral airspac e consolidations, right greater than left. Small bilateral pleural effusions are unchanged. No pneumo thorax. No other significant interval change. IMPRESSION: 1. Distal tip of the right PICC reaches the mid SVC. 2. Bilateral airspace disease, right greater than left is unchanged. No other significant interval ch cezar.
--- NOTE | 2024-10-01 13:57 | DVHPN2 ---
Subjective The patient seen and examined at bedside. Remained shortness for breath. Reviewed: Care Plan, H&P, Labs Changes from previous H/P or p: No Changes Eyes: No Pain, No Vision change, No Conjunctivae inflammation, No Eyelid inflammation, No Other, No Redness ENT: No Ear pain, No Ear discharge, No Nose pain, No Nose discharge, No Nose congestion, No Mouth pain, No Mouth swelling, No Throat pain, No Throat swelling, No Other Cardiovascular: No Chest Pain, No Palpitations, No Orthopnea, No Paroxysmal Noc. Dyspnea, No Edema, No Lt Headedness, No Other Respiratory: No Cough, No Dry; Shortness of breath, SOB with excertion; No Wheezing, No Hemoptysis, No Pleuritic Pain, No Sputum; Other (SOB at rest) Gastrointestinal: Nausea; No Vomiting, No Abdominal Pain, No Diarrhea; C onstipation; No Melena, No Hematochezia; Other (Poor appetite) Genitourinary: No Dysuria, No Frequency, No Incontinence, No Hematuria, No Retention, No Other Musculoskeletal: No other, No neck pain, No shoulder pain, No arm pain, No back pain, No hand pain, No leg pain, No foot pain Skin: No Rash, No Lesions, No Jaundice, No Bruising, No Other Objective Vitals Vital Signs Date Time Temp Pulse Resp B/P (MAP) Pulse Ox O2 Delivery O2 Flow Rate FiO2 10/01/24 11:04 78 26 95 10/01/24 10:58 Nasal Cannula* 1 24 10/01/24 10:28 118/55 10/01/24 09:00 98.0 98.0 Intake/Output Intake and Output 10/01/24 07:00 Intake Total 1425 ml Output Total 750 ml Balance 675 ml Intake Oral 725 ml IV Total 700 ml Output Urine Total 750 ml # Bowel Movements 1 General Appearance: Alert, Oriented X3, Cooperative, mild distress HEENT: Atraumatic, PERRLA Lungs: Clear to auscultation Cardiovascular: Normal S1, Normal S2 Abdomen: Normal bowel sounds Genitourinary: No Apparent Abnormalities Musculoskeletal: Normal sensory function, Normal motor function Neuro: Normal speech, Cranial nerves 3-12 NL Skin: Dry, Intact Psych/Mental Status: Mental status NL, Mood NL Medications Current Medications Medications Dose Ordered Sig/Cathy Route Start Time Stop Time Status Last Admin Dose Admin Albuterol 2.5 mg Q4HPRN PRN NEB 09/10/24 06:30 09/22/24 02:04 2.5 MG Ipratropium [place] 0.5 mg Q4HPRN PRN NEB 09/10/24 06:30 09/22/24 02:04 0.5 MG Vancomycin HCl 0 ml @ 0 mls/hr UD IV 09/10/24 06:30 Cancel Ondansetron HCl 4 mg Q4HP PRN IV 09/10/24 06:30 Docusate Sodium 100 mg BIDPRN PRN PO 09/10/24 06:30 09/11/24 09:53 100 MG Acetaminophen 650 mg Q6HP PRN PO 09/10/24 06:30 09/30/24 00:01 650 MG Nitroglycerin 0.4 mg Q5MINP PRN SL 09/10/24 06:30 Enoxaparin Sodium 70 mg Q12HR SC 09/13/24 22:00 UNV Enteral Nutritional Formula 240 ml TIDWM PO 09/16/24 18:00 10/01/24 12:00 240 ML Nystatin 5 ml QID MT 09/17/24 18:00 10/01/24 12:00 5 ML Albuterol 2.5 mg Q4HWA [facility] 09/17/24 18:00 10/01/24 10:58 2.5 MG Ipratropium [place] 0.5 mg Q4HWA [facility] 09/17/24 18:00 10/01/24 10:58 0.5 MG Melatonin 10 mg QHSP PRN PO 09/20/24 15:15 09/29/24 22:45 10 MG Potassium Chloride 10 meq DAILY PO 09/23/24 10:00 10/01/24 10:28 10 MEQ Enalaprilat 1.25 mg Q6HP PRN IV 09/22/24 13:00 Morphine Sulfate 1 mg Q4HP PRN IV 09/22/24 14:15 10/01/24 01:48 1 MG Apixaban 5 mg BID PO 09/23/24 22:00 10/01/24 10:28 5 MG Piperacillin Sod/ Tazobactam Sod 100 ml @ 25 mls/hr Q8H IV 09/24/24 20:00 10/01/24 12:00 25 MLS/HR Furosemide 40 mg DAILY IV 09/27/24 10:00 10/01/24 10:28 40 MG Vancomycin HCl 0 ml @ 0 mls/hr UD IV 09/29/24 23:15 Vancomycin HCl 200 ml @ 200 mls/hr Q12H IV 09/30/24 10:00 10/01/24 10:28 200 MLS/HR Sodium Chloride 10 ml QSHIFT@10,22 IV 09/30/24 22:00 10/01/24 10:28 10 ML Laboratory Results Laboratory Tests 10/01/24 06:00 10/01/24 09:29 Chemistry Test 10/01/24 06:00 Calcium Level 8.7 mg/dL (8.7-10.4) Urinalysis Test 09/14/24 08:00 09/30/24 06:15 Urine Osmolality 405 mOsm/kg Urine Creatinine 40.31 mg/dL (30.0-125.0) Urine Protein/Creatinine Ratio 0.54 Urine Sodium 24 mmol/L (40-220) L Urine Total Protein 21.7 mg/dL (1-14) H Urine Color Yellow (Yellow) Urine Clarity Turbid (Clear) H Urine pH 7.0 (5.0-9.0) Urine Specific [place] 1.032 (1.001-1.035) Urine Protein 1+ (Negative) H Urine Ketones Negative (Negative) Urine Blood 1+ /uL (Negative) H Urine Nitrite Negative (Negative) Urine Bilirubin Negative (Negative) Urine Urobilinogen 12 mg/dL (Negative) H Urine Leukocyte Esterase Negative /uL (Negative) Urine RBC 30 /hpf (0 - 3) Urine WBC 9 /hpf (0 - 3) Urine Squamous Epithelial Cells Few /hpf (<5) Urine Bacteria None seen /hpf (None Seen) Urine Hyaline Casts Many /lpf (0 - 2) Urine Mucus Few (None Seen) Urine Glucose Normal mg/dL (Normal) Blood Gas Results Test 10/01/24 08:48 Arterial Blood pH 7.475 (7.350-7.450) FiO2 % 28.0 Microbiology Microbiology Date/Time Source Procedure Growth Status 09/30/24 06:15 Voided Urine Urine Culture - Preliminary Resulted 09/29/24 10:55 Blood Blood Culture - Preliminary NO GROWTH AFTER 48 HOURS OF INCUBATION. Resulted 09/16/24 20:50 Sputum Gram Stain - Final Complete 09/16/24 20:50 Respiratory Culture - Final Presumptive Desirae albicans Complete 09/13/24 09:50 Nose MRSA Screen - Final Complete Labs and/or images reviewed: Labs reviewed by me Assessment/Plan Assessment/Plan -sepsis -pneumonia -necrotizing lymph node -bullous emphysema -acute hypoxic respiratory failure -nicotine dependence -atelectasis -hyponatremia -pulmonary mass, rule out malignant -DVT to cephalic vein -Deep tissue injury to coccyx -cachexia -thrombocytosis Plan: Continuing current management. Continuing with IV antibiotic. Continuing with Eliquis. Continuing with. Diet with supplement. Continuing with nebulizer. We will monitor platelets. Patient had thrombocytosis today, however trending down. Waiting for director social regarding to discharge planning with IV antibiotic Plan discussed with: Patient, Other (RN) Date of Service: Oct 01, 2024 Billing Provider: SHIRLEY ANGUIANO MD Common Visit Codes: [id number] INP/OBS CARE(HIGH) SHIRLEY ANGUIANO MD Oct 01, 2024 13:57
[2024-10-01] MEDS ORDERED: diphenhdrAMINE HCL 50 MG/1 ML VL IV SCH (16:15)
[2024-10-01] MEDS ORDERED: ACETAMINOPHEN 325 MG TAB PO SCH (16:15)
[2024-10-01] MEDS: D5W 5% IV SCH (17:48)
[2024-10-01] MEDS: AMPHOTERICIN B LIPOSOME IV SCH (17:48)
--- NOTE | 2024-10-01 23:00 | DVHPN2 ---
Progress Note - Dictate Date Seen: Oct 01, 2024 Medical Necessity Reason Pt with a Central, PICC or Fol: Yes The following are medically ne: Lara Catheter Reason for lara catheter: Strict I&O Subjective Patient seen and examined at bedside. Remains on supplemental oxygen Overnight events reviewed. vital signs Vital Sign Date Time Temp Pulse Resp B/P (MAP) Pulse Ox O2 Delivery O2 Flow Rate FiO2 10/01/24 22:55 79 20 100 10/01/24 22:47 Nasal Cannula* 1 24 10/01/24 21:00 97.4 121/57 (78) 97.4 Total Intake and Output 09/30/24 09/30/24 10/01/24 15:00 23:00 07:00 Intake Total 300 ml 700 ml 425 ml Output Total 350 ml 400 ml Balance 300 ml 350 ml 25 ml medications Current Medications Medications Dose Ordered Sig/Cathy Route Start Time Stop Time Status Last Admin Dose Admin Albuterol 2.5 mg Q4HPRN PRN NEB 09/10/24 06:30 09/22/24 02:04 2.5 MG Ipratropium [place] 0.5 mg Q4HPRN PRN NEB 09/10/24 06:30 09/22/24 02:04 0.5 MG Vancomycin HCl 0 ml @ 0 mls/hr UD IV 09/10/24 06:30 Cancel Ondansetron HCl 4 mg Q4HP PRN IV 09/10/24 06:30 Docusate Sodium 100 mg BIDPRN PRN PO 09/10/24 06:30 09/11/24 09:53 100 MG Acetaminophen 650 mg Q6HP PRN PO 09/10/24 06:30 09/30/24 00:01 650 MG Nitroglycerin 0.4 mg Q5MINP PRN SL 09/10/24 06:30 Enoxaparin Sodium 70 mg Q12HR SC 09/13/24 22:00 UNV Enteral Nutritional Formula 240 ml TIDWM PO 09/16/24 18:00 10/01/24 18:15 240 ML Nystatin 5 ml QID MT 09/17/24 18:00 10/01/24 18:15 5 ML Albuterol 2.5 mg Q4HWA NEB 09/17/24 18:00 10/01/24 22:47 2.5 MG Ipratropium [place] 0.5 mg Q4HWA NEB 09/17/24 18:00 10/01/24 22:47 0.5 MG Melatonin 10 mg QHSP PRN PO 09/20/24 15:15 09/29/24 22:45 10 MG Potassium Chloride 10 meq DAILY PO 09/23/24 10:00 10/01/24 10:28 10 MEQ Enalaprilat 1.25 mg Q6HP PRN IV 09/22/24 13:00 Apixaban 5 mg BID PO 09/23/24 22:00 10/01/24 10:28 5 MG Piperacillin Sod/ Tazobactam Sod 100 ml @ 25 mls/hr Q8H IV 09/24/24 20:00 10/01/24 20:00 25 MLS/HR Furosemide 40 mg DAILY IV 09/27/24 10:00 10/01/24 10:28 40 MG Vancomycin HCl 0 ml @ 0 mls/hr UD IV 09/29/24 23:15 Vancomycin HCl 200 ml @ 200 mls/hr Q12H IV 09/30/24 10:00 10/01/24 10:28 200 MLS/HR Sodium Chloride 10 ml QSHIFT@10,22 IV 09/30/24 22:00 10/01/24 22:06 10 ML Amphotericin B Liposome 200 mg/ Dextrose 200 ml @ 100 mls/hr DAILY@1800 IV 10/01/24 18:00 10/01/24 17:48 100 MLS/HR Acetaminophen 650 mg UD PO 10/01/24 16:15 Diphenhydramine HCl 25 mg UD IV 10/01/24 16:15 objective Gen.: Patient lying in bed in no apparent distress. On supplemental oxygen. Head: Normocephalic, atraumatic. Eyes: EOMI/PERRLA. Ears: Normal hearing. Normal anatomy. Neck/trachea: Trachea midline, supple. Nose: Normal external anatomy. Mouth: Moist mucous membranes. Chest: Decreased air entry bilaterally. No wheezing or rhonchi. Positive crackles. Cardiovascular: Positive S1, positive S2. Regular rate and rhythm. Abdomen: Positive bowel sounds in all 4 quadrants. Soft, non-tender, non- distended. : Deferred. Rectal: Deferred. Skin: Warm, dry. Intact. Extremities: 2+ radial pulses bilaterally. No lower extremity edema. Neuro: Awake, alert, oriented x3. No gross motor or sensory deficits. Cranial nerves II through XII intact. Gait not assessed. laboratory and microbiology Laboratory Tests 10/01/24 09:29 10/01/24 06:00 Test 10/01/24 06:00 Range/Units Serum Glucose 89 74-106 mg/dL Assessment/Plan Impression: Acute hypoxic respiratory failure Pneumonia COPD Emphysema, paraseptal and centrilobular Fibroid atelectatic opacities in the right middle lobe, lingula and bilateral lower lobes. Calcified pleural plaques in the right upper lobe and posterior aspects of the lower lobes bilaterally Pleural effusions, Atelectasis Hyponatremia Events: Remains on supplemental O2 at 1 LPM NC Taper O2 as tolerated STAT ABG and CXR this AM due to shortness of breath. Improved. CXR shows no acute changes. Bilateral airspace opacities. ABG shows alkalemia. WBC of 20.1 K Platelets up at 905 K. Incentive spirometry Continue bronchodilators NTS PRN. Continue antibiotics - Zosyn, vancomycin. Amphotericin B. Continue antifungals Nystatin Pain control Avoid oversedation Wound care Head of bed elevation Aspiration precautions Continue Eliquis BID for AFib. Ensure for nutritional support. Diurese w/ Lasix as tolerated Monitor renal function. Monitor electrolytes. Supplement as necessary. Monitor ins and outs Lraa d/t urinary retention. HERSON resolved after Lara placement - HERSON likely due to urine retention. Disposition per hospitalist. Labs and imaging reviewed. Rest of plan as noted below. Plan: Supplemental oxygen Keep O2 saturation above 92% CT chest report and images reviewed. Emphysematous changes. Fibro atelectatic opacity in the right middle lobe, lingula and bilateral lower lobes. Calcified plaques in the right upper and bilateral lower lobes and posteriorly. Minimal pleural effusions and atelectasis. Antibiotics. Monitor WBC count. Blood cultures show no growth. Continue bronchodilators as needed. Pain control. Avoid over-sedation. Incentive spirometry. IV fluids at 60 mL an hour. Monitor renal function. Monitor electrolytes. Supplement as necessary. Hyponatremia - Monitor sodium DVT prophylaxis Prognosis: Guarded given multiple comorbidities. Rest of plan per hospitalist and other consultants. Thank you Dr. Reed for allowing me to participate in this patient's care. Further recommendations will depend on patient's clinical course. Please do not hesitate to contact me if you have any questions or concerns. This medical document was created using an electronic medical record system with [employer] dictation system. Although this document has been carefully reviewed, there may still be some phonetic and typographical errors. These areas are purely typographical due to imperfections of the software programs, and do not reflect any compromise in the patient's medical care. Dietary Evaluation Review Comments: 1) Consider SORAIDA 1 pkt BID for wounds 2) Continue current plan of care Expected Outcomes/Goals: F/U in 3-5 days Plan discussed with: Patient, Other (RN Alexander) TORITO URBAN MD Oct 01, 2024 23:00
[2024-10-02] VITALS (17 sets, daily range): BP systolic 96–114; BP diastolic 47–52; PULSE 71–91; RESP 12–20; TEMP 97.7–98.1; O2SAT 92–100
[2024-10-02] MEDS: MORPHINE SULFATE INJ 2 MG/ml SYRG IV PRN (04:56)
[2024-10-02 06:31] LABS: Hemoglobin 9.3 g/dL (13.5-17.5); Mean Corpuscular Hgb Conc. 32.8 g/dL (32.0-36.0)
[2024-10-02 06:33] LABS: Hematocrit 28.4 % (41.0-53.0); Mean Corpuscular Hemoglobin 29.6 pg (28.0-32.0); Mean Corpuscular Volume 90.3 fL (80.0-100.0); Red Blood Cells 3.15 10^6/uL (4.5-5.90); Red Cell Distribution Width 14.6 % (11.8-14.3); White Blood Cell 19.6 10^3/uL (4.4-10.8)
[2024-10-02 06:36] LABS: Platelet Count (auto) 821 10^3/uL (140-450)
[2024-10-02 06:38] LABS: Basophils % (manual) 0 (0.0-2.0); Blast Cells 0; Metamyelocytes % 0; Myelocytes % 0; Promyelocytes % 0; Reactive Lymphocytes 0
[2024-10-02 06:45] LABS: Anion Gap 6 (5-15); Calcium 8.7 mg/dL (8.7-10.4)
[2024-10-02 06:50] LABS: BUN/Creatinine Ratio 35.9 (10.0-20.0); Blood Urea Nitrogen 14 mg/dL (9-23); Glucose 93 mg/dL (74-106); Potassium 3.3 mmol/L (3.5-5.1); Sodium 133 mmol/L (136-145)
[2024-10-02 06:51] LABS: Carbon Dioxide 33 mmol/L (20-31); Chloride 94 mmol/L (98-107)
--- NOTE | 2024-10-02 08:28 | DVHPN2 ---
Subjective The patient is seen and examined at bedside. No change overnight. Remained shortness for breath. The patient also complained of being very tired Reviewed: Care Plan, H&P, Labs Changes from previous H/P or p: No Changes Eyes: No Pain, No Vision change, No Conjunctivae inflammation, No Eyelid inflammation, No Other, No Redness ENT: No Ear pain, No Ear discharge, No Nose pain, No Nose discharge, No Nose congestion, No Mouth pain, No Mouth swelling, No Throat pain, No Throat swelling, No Other Cardiovascular: No Chest Pain, No Palpitations, No Orthopnea, No Paroxysmal Noc. Dyspnea, No Edema, No Lt Headedness, No Other Respiratory: No Cough, No Dry; Shortness of breath, SOB with excertion; No Wheezing, No Hemoptysis, No Pleuritic Pain, No Sputum; Other (SOB at rest) Gastrointestinal: Nausea; No Vomiting, No Abdominal Pain, No Diarrhea; C onstipation; No Melena, No Hematochezia; Other (Poor appetite) Genitourinary: No Dysuria, No Frequency, No Incontinence, No Hematuria, No Retention, No Other Musculoskeletal: No other, No neck pain, No shoulder pain, No arm pain, No back pain, No hand pain, No leg pain, No foot pain Skin: No Rash, No Lesions, No Jaundice, No Bruising, No Other Objective Vitals Vital Signs Date Time Temp Pulse Resp B/P (MAP) Pulse Ox O2 Delivery O2 Flow Rate FiO2 10/02/24 07:36 75 18 100 10/02/24 07:30 Nasal Cannula 1.0 10/02/24 07:30 24 10/02/24 05:26 92/58 10/01/24 21:00 97.4 97.4 Intake/Output Intake and Output 10/02/24 07:00 Intake Total 919 ml Output Total 1480 ml Balance -561 ml Intake Oral 719 ml IV Total 200 ml Output Urine Total 1480 ml # Bowel Movements 1 General Appearance: Alert, Oriented X3, Cooperative, mild distress HEENT: Atraumatic, PERRLA Lungs: Clear to auscultation Cardiovascular: Normal S1, Normal S2 Abdomen: Normal bowel sounds Genitourinary: No Apparent Abnormalities Musculoskeletal: Normal sensory function, Normal motor function Neuro: Normal speech, Cranial nerves 3-12 NL Skin: Dry, Intact Psych/Mental Status: Mental status NL, Mood NL Medications Current Medications Medications Dose Ordered Sig/Cathy Route Start Time Stop Time Status Last Admin Dose Admin Albuterol 2.5 mg Q4HPRN PRN NEB 09/10/24 06:30 09/22/24 02:04 2.5 MG Ipratropium [place] 0.5 mg Q4HPRN PRN NEB 09/10/24 06:30 09/22/24 02:04 0.5 MG Vancomycin HCl 0 ml @ 0 mls/hr UD IV 09/10/24 06:30 Cancel Ondansetron HCl 4 mg Q4HP PRN IV 09/10/24 06:30 Docusate Sodium 100 mg BIDPRN PRN PO 09/10/24 06:30 09/11/24 09:53 100 MG Acetaminophen 650 mg Q6HP PRN PO 09/10/24 06:30 09/30/24 00:01 650 MG Nitroglycerin 0.4 mg Q5MINP PRN SL 09/10/24 06:30 Enoxaparin Sodium 70 mg Q12HR SC 09/13/24 22:00 UNV Enteral Nutritional Formula 240 ml TIDWM PO 09/16/24 18:00 10/02/24 08:24 240 ML Nystatin 5 ml QID MT 09/17/24 18:00 10/01/24 22:00 5 ML Albuterol 2.5 mg Q4HWA [facility] 09/17/24 18:00 10/02/24 07:30 2.5 MG Ipratropium [place] 0.5 mg Q4HWA [facility] 09/17/24 18:00 10/02/24 07:30 0.5 MG Melatonin 10 mg QHSP PRN PO 09/20/24 15:15 09/29/24 22:45 10 MG Potassium Chloride 10 meq DAILY PO 09/23/24 10:00 10/01/24 10:28 10 MEQ Enalaprilat 1.25 mg Q6HP PRN IV 09/22/24 13:00 Apixaban 5 mg BID PO 09/23/24 22:00 10/01/24 22:00 5 MG Piperacillin Sod/ Tazobactam Sod 100 ml @ 25 mls/hr Q8H IV 09/24/24 20:00 10/02/24 04:19 25 MLS/HR Furosemide 40 mg DAILY IV 09/27/24 10:00 10/01/24 10:28 40 MG Vancomycin HCl 0 ml @ 0 mls/hr UD IV 09/29/24 23:15 Vancomycin HCl 200 ml @ 200 mls/hr Q12H IV 09/30/24 10:00 10/01/24 22:00 200 MLS/HR Sodium Chloride 10 ml QSHIFT@10,22 IV 09/30/24 22:00 10/01/24 22:06 10 ML Amphotericin B Liposome 200 mg/ Dextrose 200 ml @ 100 mls/hr DAILY@1800 IV 10/01/24 18:00 10/01/24 17:48 100 MLS/HR Acetaminophen 650 mg UD PO 10/01/24 16:15 Diphenhydramine HCl 25 mg UD IV 10/01/24 16:15 Morphine Sulfate 1 mg Q4HP PRN IV 10/01/24 23:15 10/02/24 04:56 1 MG Laboratory Results Laboratory Tests 10/02/24 06:15 Chemistry Test 10/02/24 06:15 Calcium Level 8.7 mg/dL (8.7-10.4) Urinalysis Test 09/14/24 08:00 09/30/24 06:15 Urine Osmolality 405 mOsm/kg Urine Creatinine 40.31 mg/dL (30.0-125.0) Urine Protein/Creatinine Ratio 0.54 Urine Sodium 24 mmol/L (40-220) L Urine Total Protein 21.7 mg/dL (1-14) H Urine Color Yellow (Yellow) Urine Clarity Turbid (Clear) H Urine pH 7.0 (5.0-9.0) Urine Specific [place] 1.032 (1.001-1.035) Urine Protein 1+ (Negative) H Urine Ketones Negative (Negative) Urine Blood 1+ /uL (Negative) H Urine Nitrite Negative (Negative) Urine Bilirubin Negative (Negative) Urine Urobilinogen 12 mg/dL (Negative) H Urine Leukocyte Esterase Negative /uL (Negative) Urine RBC 30 /hpf (0 - 3) Urine WBC 9 /hpf (0 - 3) Urine Squamous Epithelial Cells Few /hpf (<5) Urine Bacteria None seen /hpf (None Seen) Urine Hyaline Casts Many /lpf (0 - 2) Urine Mucus Few (None Seen) Urine Glucose Normal mg/dL (Normal) Blood Gas Results Test 10/01/24 08:48 Arterial Blood pH 7.475 (7.350-7.450) FiO2 % 28.0 Microbiology Microbiology Date/Time Source Procedure Growth Status 09/30/24 06:15 Voided Urine Urine Culture - Final Complete 09/29/24 10:55 Blood Blood Culture - Preliminary NO GROWTH AFTER 48 HOURS OF INCUBATION. 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 Continuing with IV antibiotic. Continuing with Eliquis. Continuing with Diet with supplement. Continuing with nebulizer. We will monitor platelets. Patient had thrombocytosis today, however trending down. Waiting for public health social worker regarding to discharge planning with IV antibiotic Plan discussed with: Patient Date of Service: Oct 02, 2024 Billing Provider: SHIRLEY ANGUIANO MD Common Visit Codes: [id number] INP/OBS CARE(HIGH) SHIRLEY ANGUIANO MD Oct 02, 2024 08:28
[2024-10-02 08:32] LABS: Band Neutrophils % (manual) 5; Eosinophils % (manual) 1 (0-7); Lymphocytes % (manual) 4 (10.0-50.0); Monocytes % (manual) 5 (0-12)
[2024-10-02 08:33] LABS: Platelet Estimate Markedly Increased; RBC Morphology Normal
--- NOTE | 2024-10-02 10:41 | ECG ---
[facility] Test Date: 2024-09-12 Test Time: 08:26:56 Pat Name: BUSHRA GARCIA Department: Respiratoy Room: 0248T B Gender: M Hand Shoes Sewer: JOSE GUALLPA RN : 1945 Requested By: SHELBY OQUENDO Order Number: [id number] Reading MD: Sara Haddad Measurements Intervals [place] Rate: 93 P: 70 GA: 173 QRS: 49 QRSD: 96 T: 65 QT: 344 QTc: 428 Interpretive Statements Sinus rhythm Probable left atrial enlargement Electronically Signed On 10-03-2024 9:07:03 PST by Sara Haddad Please click the below link to view image of tracing.
--- NOTE | 2024-10-02 11:01 | ECG ---
[facility] Test Date: 2024-09-12 Test Time: 08:18:28 Pat Name: BUSHRA GARCIA Department: Respiratoy Room: 0248T B Gender: M Release Of Information Specialist: JOSE GUALLPA RN : 1945 Requested By: SHELBY OQUENDO Order Number: [id number] Reading MD: Sara Haddad Measurements Intervals [place] Rate: 94 P: 76 CT: 173 QRS: 49 QRSD: 99 T: 67 QT: 361 QTc: 452 Interpretive Statements Sinus rhythm Baseline wander in lead(s) V2 Electronically Signed On 10-03-2024 9:07:02 PST by Sara Haddad Please click the below link to view image of tracing.
--- NOTE | 2024-10-02 23:30 | DVHPN2 ---
Progress Note - Dictate Date Seen: Oct 02, 2024 Medical Necessity Reason Pt with a Central, PICC or Fol: Yes The following are medically ne: Lara Catheter Reason for lara catheter: Strict I&O Subjective Patient seen and examined at bedside. Remains on supplemental oxygen Overnight events reviewed. vital signs Vital Sign Date Time Temp Pulse Resp B/P (MAP) Pulse Ox O2 Delivery O2 Flow Rate FiO2 10/02/24 23:25 81 18 106/50 10/02/24 23:03 100 10/02/24 22:55 Nasal Cannula 1.0 10/02/24 22:55 24 10/02/24 20:59 98.1 98.1 Total Intake and Output 10/01/24 10/01/24 10/02/24 15:00 23:00 07:00 Intake Total 819 ml 100 ml Output Total 1480 ml Balance -661 ml 100 ml medications Current Medications Medications Dose Ordered Sig/Cathy Route Start Time Stop Time Status Last Admin Dose Admin Albuterol 2.5 mg Q4HPRN PRN NEB 09/10/24 06:30 09/22/24 02:04 2.5 MG Ipratropium [place] 0.5 mg Q4HPRN PRN NEB 09/10/24 06:30 09/22/24 02:04 0.5 MG Vancomycin HCl 0 ml @ 0 mls/hr UD IV 09/10/24 06:30 Cancel Ondansetron HCl 4 mg Q4HP PRN IV 09/10/24 06:30 Docusate Sodium 100 mg BIDPRN PRN PO 09/10/24 06:30 09/11/24 09:53 100 MG Acetaminophen 650 mg Q6HP PRN PO 09/10/24 06:30 09/30/24 00:01 650 MG Nitroglycerin 0.4 mg Q5MINP PRN SL 09/10/24 06:30 Enoxaparin Sodium 70 mg Q12HR SC 09/13/24 22:00 UNV Enteral Nutritional Formula 240 ml TIDWM PO 09/16/24 18:00 10/02/24 18:00 240 ML Nystatin 5 ml QID MT 09/17/24 18:00 10/02/24 21:31 5 ML Albuterol 2.5 mg Q4HWA NEB 09/17/24 18:00 10/02/24 22:55 2.5 MG Ipratropium [place] 0.5 mg Q4HWA NEB 09/17/24 18:00 10/02/24 22:55 0.5 MG Melatonin 10 mg QHSP PRN PO 09/20/24 15:15 09/29/24 22:45 10 MG Potassium Chloride 10 meq DAILY PO 09/23/24 10:00 10/02/24 11:51 10 MEQ Enalaprilat 1.25 mg Q6HP PRN IV 09/22/24 13:00 Apixaban 5 mg BID PO 09/23/24 22:00 10/02/24 21:31 5 MG Piperacillin Sod/ Tazobactam Sod 100 ml @ 25 mls/hr Q8H IV 09/24/24 20:00 10/02/24 20:00 25 MLS/HR Furosemide 40 mg DAILY IV 09/27/24 10:00 10/01/24 10:28 40 MG Vancomycin HCl 0 ml @ 0 mls/hr UD IV 09/29/24 23:15 Vancomycin HCl 200 ml @ 200 mls/hr Q12H IV 09/30/24 10:00 10/02/24 21:28 200 MLS/HR Sodium Chloride 10 ml QSHIFT@10,22 IV 09/30/24 22:00 10/02/24 21:30 10 ML Amphotericin B Liposome 200 mg/ Dextrose 200 ml @ 100 mls/hr DAILY@1800 IV 10/01/24 18:00 10/02/24 19:11 100 MLS/HR Acetaminophen 650 mg UD PO 10/01/24 16:15 Diphenhydramine HCl 25 mg UD IV 10/01/24 16:15 Morphine Sulfate 1 mg Q4HP PRN IV 10/01/24 23:15 10/02/24 23:25 1 MG objective Gen.: Patient lying in bed in no apparent distress. On supplemental oxygen. Head: Normocephalic, atraumatic. Eyes: EOMI/PERRLA. Ears: Normal hearing. Normal anatomy. Neck/trachea: Trachea midline, supple. Nose: Normal external anatomy. Mouth: Moist mucous membranes. Chest: Decreased air entry bilaterally. No wheezing or rhonchi. Positive crackles. Cardiovascular: Positive S1, positive S2. Regular rate and rhythm. Abdomen: Positive bowel sounds in all 4 quadrants. Soft, non-tender, non- distended. : Deferred. Rectal: Deferred. Skin: Warm, dry. Intact. Extremities: 2+ radial pulses bilaterally. No lower extremity edema. Neuro: Awake, alert, oriented x3. No gross motor or sensory deficits. Cranial nerves II through XII intact. Gait not assessed. laboratory and microbiology Laboratory Tests 10/02/24 06:15 Test 10/02/24 06:15 Range/Units Serum Glucose 93 74-106 mg/dL Assessment/Plan Impression: Acute hypoxic respiratory failure Pneumonia COPD Emphysema, paraseptal and centrilobular Fibroid atelectatic opacities in the right middle lobe, lingula and bilateral lower lobes. Calcified pleural plaques in the right upper lobe and posterior aspects of the lower lobes bilaterally Pleural effusions, Atelectasis Hyponatremia Events: Remains on supplemental O2 at 1 LPM NC Taper O2 as tolerated Incentive spirometry Continue bronchodilators NTS PRN. Continue antibiotics - Zosyn, vancomycin. Amphotericin B. Continue antifungals Pain control Avoid oversedation Monitor wbc Monitor platelet count. Wound care Head of bed elevation Aspiration precautions Continue Eliquis BID for AFib. Ensure for nutritional support. Diurese w/ Lasix as tolerated Monitor renal function. Monitor electrolytes. Supplement as necessary. Monitor ins and outs Maintain euvolemia Lara d/t urinary retention. HERSON resolved after Lara placement - HERSON likely due to urine retention. Disposition per hospitalist. Labs and imaging reviewed. Rest of plan as noted below. Plan: Supplemental oxygen Keep O2 saturation above 92% CT chest report and images reviewed. Emphysematous changes. Fibro atelectatic opacity in the right middle lobe, lingula and bilateral lower lobes. Calcified plaques in the right upper and bilateral lower lobes and posteriorly. Minimal pleural effusions and atelectasis. Antibiotics. Monitor WBC count. Blood cultures show no growth. Continue bronchodilators as needed. Pain control. Avoid over-sedation. Incentive spirometry. IV fluids at 60 mL an hour. Monitor renal function. Monitor electrolytes. Supplement as necessary. Hyponatremia - Monitor sodium DVT prophylaxis Prognosis: Guarded given multiple comorbidities. Rest of plan per hospitalist and other consultants. Thank you Dr. Reed for allowing me to participate in this patient's care. Further recommendations will depend on patient's clinical course. Please do not hesitate to contact me if you have any questions or concerns. This medical document was created using an electronic medical record system with [employer] dictation system. Although this document has been carefully reviewed, there may still be some phonetic and typographical errors. These areas are purely typographical due to imperfections of the software programs, and do not reflect any compromise in the patient's medical care. Dietary Evaluation Review Comments: 1) Consider SORAIDA 1 pkt BID for wounds 2) Continue current plan of care Expected Outcomes/Goals: F/U in 3-5 days Plan discussed with: Patient, Other (RN) TORITO URBAN MD Oct 02, 2024 23:30
--- NOTE | 2024-10-02 23:43 | DVHPN2 ---
Consult Progress Note Date Seen: Oct 01, 2024 Subjective Patient reports: Feels better (worsening leukocytopsis and fatigue) Objective vital signs Vital Sign Date Time Temp Pulse Resp B/P (MAP) Pulse Ox O2 Delivery O2 Flow Rate FiO2 10/02/24 23:25 81 18 106/50 10/02/24 23:03 100 10/02/24 22:55 Nasal Cannula 1.0 10/02/24 22:55 24 10/02/24 20:59 98.1 98.1 Total Intake and Output 10/01/24 10/01/24 10/02/24 15:00 23:00 07:00 Intake Total 819 ml 100 ml Output Total 1480 ml Balance -661 ml 100 ml medications Current Medications Medications Dose Ordered Sig/Cathy Route Start Time Stop Time Status Last Admin Dose Admin Albuterol 2.5 mg Q4HPRN PRN NEB 09/10/24 06:30 09/22/24 02:04 2.5 MG Ipratropium [place] 0.5 mg Q4HPRN PRN NEB 09/10/24 06:30 09/22/24 02:04 0.5 MG Vancomycin HCl 0 ml @ 0 mls/hr UD IV 09/10/24 06:30 Cancel Ondansetron HCl 4 mg Q4HP PRN IV 09/10/24 06:30 Docusate Sodium 100 mg BIDPRN PRN PO 09/10/24 06:30 09/11/24 09:53 100 MG Acetaminophen 650 mg Q6HP PRN PO 09/10/24 06:30 09/30/24 00:01 650 MG Nitroglycerin 0.4 mg Q5MINP PRN SL 09/10/24 06:30 Enoxaparin Sodium 70 mg Q12HR SC 09/13/24 22:00 UNV Enteral Nutritional Formula 240 ml TIDWM PO 09/16/24 18:00 10/02/24 18:00 240 ML Nystatin 5 ml QID MT 09/17/24 18:00 10/02/24 21:31 5 ML Albuterol 2.5 mg Q4HWA NEB 09/17/24 18:00 10/02/24 22:55 2.5 MG Ipratropium [place] 0.5 mg Q4HWA NEB 09/17/24 18:00 10/02/24 22:55 0.5 MG Melatonin 10 mg QHSP PRN PO 09/20/24 15:15 09/29/24 22:45 10 MG Potassium Chloride 10 meq DAILY PO 09/23/24 10:00 10/02/24 11:51 10 MEQ Enalaprilat 1.25 mg Q6HP PRN IV 09/22/24 13:00 Apixaban 5 mg BID PO 09/23/24 22:00 10/02/24 21:31 5 MG Piperacillin Sod/ Tazobactam Sod 100 ml @ 25 mls/hr Q8H IV 09/24/24 20:00 10/02/24 20:00 25 MLS/HR Furosemide 40 mg DAILY IV 09/27/24 10:00 10/01/24 10:28 40 MG Vancomycin HCl 0 ml @ 0 mls/hr UD IV 09/29/24 23:15 Vancomycin HCl 200 ml @ 200 mls/hr Q12H IV 09/30/24 10:00 10/02/24 21:28 200 MLS/HR Sodium Chloride 10 ml QSHIFT@10,22 IV 09/30/24 22:00 10/02/24 21:30 10 ML Amphotericin B Liposome 200 mg/ Dextrose 200 ml @ 100 mls/hr DAILY@1800 IV 10/01/24 18:00 10/02/24 19:11 100 MLS/HR Acetaminophen 650 mg UD PO 10/01/24 16:15 Diphenhydramine HCl 25 mg UD IV 10/01/24 16:15 Morphine Sulfate 1 mg Q4HP PRN IV 10/01/24 23:15 10/02/24 23:25 1 MG PHYSICAL EXAM: - GENERAL: Alert and oriented x 3. No acute distress. Well-nourished. - EYES: EOMI. Anicteric. - HENT: Moist mucous membranes. No scleral icterus. No cervical lymphadenopathy. - LUNGS: Clear to auscultation bilaterally. No accessory muscle use. - CARDIOVASCULAR: Regular rate and rhythm. No murmur. No JVD. - ABDOMEN: Soft, non-tender and non-distended. No palpable masses. - EXTREMITIES: No edema. Non-tender.?SKIN: No rashes or lesions. Warm. - NEUROLOGIC: No focal neurological deficits. CN II-XII grossly intact, but not individually tested. - PSYCHIATRIC: Cooperative. Appropriate mood and affect. laboratory and microbiology Laboratory Tests 10/02/24 06:15 Test 10/02/24 06:15 Range/Units Serum Glucose 93 74-106 mg/dL Problem List/Assessment/Plan Problem List/Assessment/Plan ID Problem List: -- Generalized weakness -- Fall with head injury -- Multifocal pneumonia -- Leukocytosis -- COPD exacerbation -- Hyponatremia -- Stage 2 sacral ulcers -- Tobacco use disorder Assessment This is a 79 y.o. male with a past medical history of asthma, COPD, and depression, who presents with generalized weakness and a fall resulting in a forehead abrasion. He has been experiencing loss of appetite, no bowel movements, and shortness of breath. Laboratory findings show leukocytosis with a WBC count of 35.6??10?/L, thrombocytosis with platelets at 539??10?/L, hyponatremia with sodium at 120?mmol/L, BUN of 22?mg/dL, creatinine of 0.6?mg/dL, glucose of 102?mg/dL, lactic acid of 1.5?mmol/L, and hemoglobin of 13.7?g/dL. CT head showed no acute abnormality. Chest CT revealed thyromegaly and extensive alveolar and parenchymal infiltrates in both lungs, seen in the right middle lobe, lingula, and both lower lobes. He was started empirically on vancomycin and ceftriaxone; azithromycin was later added. The patient has stage 2 sacral ulcers, non-purulent and non-eroded. 09/13: On imaging his doppler lower extemity ultrasound shows a nonocclusive thrombo scene in the proximal left superficial fomoral vein. CT of lungs which showed no pulmonary embolism. diffuse abnormal tissue density in posterior media steinum extened from the upper thorax to diaphragmatic hiatus with small air bubbles thats increased in size compared to last exam, which could represent nectrotic adenopathy abscess or esophageal injury or rupture. component on the left at the diaphragmatic hiatus is recommended , smoking related lung disease , patchy eclecticism consolidation. 09/14: white count remains elevated at 33. Dr choi from oncology saw patinet and suggent proliferative disorder is a possiblility but will asses after antibiotics, as well as consider a biopsy after a few weeks. MRSA nares came negative. 09/15: white count is slowing coming down and a backorder of levofloxacin 09/16: white count is slowly downtrending now at 28, 2 liters nasal canula 09/17: Patient was able to produce and induced sputum sample and so far results are with no growth 09/21: White count continues to downtrend now at 13 09/22: white count is 17.2 , chest xray shows stable mass like opacities in both lungs , had a biopsy done of a left pair of veterebral mass , 5 core biopsies were obtained 09/23: white count is elevated at 18 , chest x-ray showed stable mass capacities throughout both lungs, patient is negative for HIV 09/24: Chest xray shows plural classifications and airspace opacities appear to be similar to prior examination. stable blunting of constophrenic agles , appears overall stable but on more oxygen then what he came in with . getting bicarbonate greater than 40 09/25: white count is 10.3 , significant improvement fungal serolgies and quant tb is negative 09/30: white count is 14.9 , thrombocytosis is 872 , concerned that patient is still having an undiagnosed infection that is not being treated adequately. Fungal serologies have come back negative , Tp came back negative and patient is tolerating antibiotic treatments Plan: - repeat sputum culture - empirically start amphotericin B given rising leukocytosis, plts and tachypnea - follow up on pathology results as this can ultimately help us understand what type of infection is present here - recommend getting CBC and check daily - restart vancomycin empirically for presumed HAP, repeat sputum culture - patient appears to be responding to therapy , continue Zosyn - patients augmented renal function - follow up on pathology results for the biopsy specimen of mass in lungs -- Status post lymph node biopsy will follow up on pathology results -- will fu on sputum culture -- patient started on eliquis for DVT for 3 months -- patient should follow up with infectious disease for chest Ct to see if necrotic lymph node resolved -- Implement wound care for stage 2 sacral ulcers. -- Monitor vital signs and oxygen saturation. Isolation Precautions: Standard Plan discussed with: Patient Dietary Evaluation Review Comments: 1) Consider SORAIDA 1 pkt BID for wounds 2) Continue current plan of care Expected Outcomes/Goals: F/U in 3-5 days SHELBY OQUENDO MD Oct 02, 2024 23:43
--- NOTE | 2024-10-02 23:44 | DVHPN2 ---
Consult Progress Note Date Seen: Oct 02, 2024 Subjective Patient reports: Feels better (improving on vancomycin and amphoterocin B) Objective vital signs Vital Sign Date Time Temp Pulse Resp B/P (MAP) Pulse Ox O2 Delivery O2 Flow Rate FiO2 10/02/24 23:25 81 18 106/50 10/02/24 23:03 100 10/02/24 22:55 Nasal Cannula 1.0 10/02/24 22:55 24 10/02/24 20:59 98.1 98.1 Total Intake and Output 10/01/24 10/01/24 10/02/24 15:00 23:00 07:00 Intake Total 819 ml 100 ml Output Total 1480 ml Balance -661 ml 100 ml medications Current Medications Medications Dose Ordered Sig/Cathy Route Start Time Stop Time Status Last Admin Dose Admin Albuterol 2.5 mg Q4HPRN PRN NEB 09/10/24 06:30 09/22/24 02:04 2.5 MG Ipratropium [place] 0.5 mg Q4HPRN PRN NEB 09/10/24 06:30 09/22/24 02:04 0.5 MG Vancomycin HCl 0 ml @ 0 mls/hr UD IV 09/10/24 06:30 Cancel Ondansetron HCl 4 mg Q4HP PRN IV 09/10/24 06:30 Docusate Sodium 100 mg BIDPRN PRN PO 09/10/24 06:30 09/11/24 09:53 100 MG Acetaminophen 650 mg Q6HP PRN PO 09/10/24 06:30 09/30/24 00:01 650 MG Nitroglycerin 0.4 mg Q5MINP PRN SL 09/10/24 06:30 Enoxaparin Sodium 70 mg Q12HR SC 09/13/24 22:00 UNV Enteral Nutritional Formula 240 ml TIDWM PO 09/16/24 18:00 10/02/24 18:00 240 ML Nystatin 5 ml QID MT 09/17/24 18:00 10/02/24 21:31 5 ML Albuterol 2.5 mg Q4HWA NEB 09/17/24 18:00 10/02/24 22:55 2.5 MG Ipratropium [place] 0.5 mg Q4HWA NEB 09/17/24 18:00 10/02/24 22:55 0.5 MG Melatonin 10 mg QHSP PRN PO 09/20/24 15:15 09/29/24 22:45 10 MG Potassium Chloride 10 meq DAILY PO 09/23/24 10:00 10/02/24 11:51 10 MEQ Enalaprilat 1.25 mg Q6HP PRN IV 09/22/24 13:00 Apixaban 5 mg BID PO 09/23/24 22:00 10/02/24 21:31 5 MG Piperacillin Sod/ Tazobactam Sod 100 ml @ 25 mls/hr Q8H IV 09/24/24 20:00 10/02/24 20:00 25 MLS/HR Furosemide 40 mg DAILY IV 09/27/24 10:00 10/01/24 10:28 40 MG Vancomycin HCl 0 ml @ 0 mls/hr UD IV 09/29/24 23:15 Vancomycin HCl 200 ml @ 200 mls/hr Q12H IV 09/30/24 10:00 10/02/24 21:28 200 MLS/HR Sodium Chloride 10 ml QSHIFT@10,22 IV 09/30/24 22:00 10/02/24 21:30 10 ML Amphotericin B Liposome 200 mg/ Dextrose 200 ml @ 100 mls/hr DAILY@1800 IV 10/01/24 18:00 10/02/24 19:11 100 MLS/HR Acetaminophen 650 mg UD PO 10/01/24 16:15 Diphenhydramine HCl 25 mg UD IV 10/01/24 16:15 Morphine Sulfate 1 mg Q4HP PRN IV 10/01/24 23:15 10/02/24 23:25 1 MG PHYSICAL EXAM: - GENERAL: Alert and oriented x 3. No acute distress. Well-nourished. - EYES: EOMI. Anicteric. - HENT: Moist mucous membranes. No scleral icterus. No cervical lymphadenopathy. - LUNGS: Clear to auscultation bilaterally. No accessory muscle use. - CARDIOVASCULAR: Regular rate and rhythm. No murmur. No JVD. - ABDOMEN: Soft, non-tender and non-distended. No palpable masses. - EXTREMITIES: No edema. Non-tender.?SKIN: No rashes or lesions. Warm. - NEUROLOGIC: No focal neurological deficits. CN II-XII grossly intact, but not individually tested. - PSYCHIATRIC: Cooperative. Appropriate mood and affect. laboratory and microbiology Laboratory Tests 10/02/24 06:15 Test 10/02/24 06:15 Range/Units Serum Glucose 93 74-106 mg/dL Problem List/Assessment/Plan Problems(with codes): (1) Generalized weakness (2) Multifocal pneumonia (3) Hyponatremia (4) Hypertension (5) Leukocytosis, unspecified (6) Status asthmaticus (7) Pneumonia (8) COPD (chronic obstructive pulmonary disease) (9) SHORTNESS OF BREATH (10) ASTHMA, CHRONIC OBSTRUCTIVE W ASTHMATICUS Problem List/Assessment/Plan ID Problem List: -- Generalized weakness -- Fall with head injury -- Multifocal pneumonia -- Leukocytosis -- COPD exacerbation -- Hyponatremia -- Stage 2 sacral ulcers -- Tobacco use disorder Assessment This is a 79 y.o. male with a past medical history of asthma, COPD, and depression, who presents with generalized weakness and a fall resulting in a forehead abrasion. He has been experiencing loss of appetite, no bowel movements, and shortness of breath. Laboratory findings show leukocytosis with a WBC count of 35.6??10?/L, thrombocytosis with platelets at 539??10?/L, hyponatremia with sodium at 120?mmol/L, BUN of 22?mg/dL, creatinine of 0.6?mg/dL, glucose of 102?mg/dL, lactic acid of 1.5?mmol/L, and hemoglobin of 13.7?g/dL. CT head showed no acute abnormality. Chest CT revealed thyromegaly and extensive alveolar and parenchymal infiltrates in both lungs, seen in the right middle lobe, lingula, and both lower lobes. He was started empirically on vancomycin and ceftriaxone; azithromycin was later added. The patient has stage 2 sacral ulcers, non-purulent and non-eroded. 09/13: On imaging his doppler lower extemity ultrasound shows a nonocclusive thrombo scene in the proximal left superficial fomoral vein. CT of lungs which showed no pulmonary embolism. diffuse abnormal tissue density in posterior media steinum extened from the upper thorax to diaphragmatic hiatus with small air bubbles thats increased in size compared to last exam, which could represent nectrotic adenopathy abscess or esophageal injury or rupture. component on the left at the diaphragmatic hiatus is recommended , smoking related lung disease , patchy eclecticism consolidation. 09/14: white count remains elevated at 33. Dr choi from oncology saw patinet and suggent proliferative disorder is a possiblility but will asses after antibiotics, as well as consider a biopsy after a few weeks. MRSA nares came negative. 09/15: white count is slowing coming down and a backorder of levofloxacin 09/16: white count is slowly downtrending now at 28, 2 liters nasal canula 09/17: Patient was able to produce and induced sputum sample and so far results are with no growth 09/21: White count continues to downtrend now at 13 09/22: white count is 17.2 , chest xray shows stable mass like opacities in both lungs , had a biopsy done of a left pair of veterebral mass , 5 core biopsies were obtained 09/23: white count is elevated at 18 , chest x-ray showed stable mass capacities throughout both lungs, patient is negative for HIV 09/24: Chest xray shows plural classifications and airspace opacities appear to be similar to prior examination. stable blunting of constophrenic agles , appears overall stable but on more oxygen then what he came in with . getting bicarbonate greater than 40 09/25: white count is 10.3 , significant improvement fungal serolgies and quant tb is negative 09/30: white count is 14.9 , thrombocytosis is 872 , concerned that patient is still having an undiagnosed infection that is not being treated adequately. Fungal serologies have come back negative , Tp came back negative and patient is tolerating antibiotic treatments 10/01: nonspecific inflammation on lymph node biopsy Plan: - repeat sputum culture - empirically continue amphotericin B given rising glucose and tachypnea - follow up on pathology results as this can ultimately help us understand what type of infection is present here - recommend getting CBC and check daily - continue vancomycin empirically for presumed HAP, repeat sputum culture - ok stop Zosyn -- Implement wound care for stage 2 sacral ulcers. -- Monitor vital signs and oxygen saturation. Isolation Precautions: Standard Plan discussed with: Patient Dietary Evaluation Review Comments: 1) Consider SORAIDA 1 pkt BID for wounds 2) Continue current plan of care Expected Outcomes/Goals: F/U in 3-5 days SHELBY OQUENDO MD Oct 02, 2024 23:44
[2024-10-03] VITALS (18 sets, daily range): BP systolic 66–99; BP diastolic 44–50; PULSE 74–93; RESP 12–20; TEMP 97.6–98.5; O2SAT 90–100
[2024-10-03 10:56] LABS: Basophils # (auto) 0.1 10 ^3/uL (0-0.2); Mean Corpuscular Hemoglobin 29.8 pg (28.0-32.0)
[2024-10-03 10:59] LABS: Basophils % (auto) 0.7 % (0.0-2.0); Chloride 95 mmol/L (98-107); Eosinophils # (auto) 0.2 10 ^3/uL (0-0.8); Eosinophils % (auto) 1.4 % (0.0-7.0); Hematocrit 28.1 % (41.0-53.0); Hemoglobin 9.1 g/dL (13.5-17.5); Lymphocytes # (auto) 0.7 10 ^3/uL (0.4-5.4); Mean Corpuscular Hgb Conc. 32.5 g/dL (32.0-36.0); Mean Corpuscular Volume 91.6 fL (80.0-100.0); Monocytes # (auto) 1.2 10 ^3/uL (0-1.3); Monocytes % (auto) 7.5 % (0.0-12.0); Neutrophils # (auto) 14.2 10 ^3/uL (1.6-8.6); Neutrophils % (auto) 86.4 % (37.0-80.0); Platelet Count (auto) 731 10^3/uL (140-450); Potassium 3.3 mmol/L (3.5-5.1); Red Blood Cells 3.06 10^6/uL (4.5-5.90); Red Cell Distribution Width 14.8 % (11.8-14.3); Sodium 132 mmol/L (136-145); White Blood Cell 16.4 10^3/uL (4.4-10.8)
[2024-10-03 11:00] LABS: Anion Gap 5 (5-15); Carbon Dioxide 32 mmol/L (20-31)
[2024-10-03 11:01] LABS: Calcium 8.6 mg/dL (8.7-10.4)
[2024-10-03 11:06] LABS: BUN/Creatinine Ratio 27.3 (10.0-20.0); Blood Urea Nitrogen 12 mg/dL (9-23); Glucose 130 mg/dL (74-106)
[2024-10-03] MEDS: POTASSIUM EFFERVESENT TAB 25 MEQ PO ONE (12:22)
--- NOTE | 2024-10-03 12:39 | DVHPN2 ---
Subjective Patient was states that he feels better. Reviewed: Care Plan, H&P, Labs Changes from previous H/P or p: No Changes Eyes: No Pain, No Vision change, No Conjunctivae inflammation, No Eyelid inflammation, No Other, No Redness ENT: No Ear pain, No Ear discharge, No Nose pain, No Nose discharge, No Nose congestion, No Mouth pain, No Mouth swelling, No Throat pain, No Throat swelling, No Other Cardiovascular: No Chest Pain, No Palpitations, No Orthopnea, No Paroxysmal Noc. Dyspnea, No Edema, No Lt Headedness, No Other Respiratory: No Cough, No Dry; Shortness of breath, SOB with excertion; No Wheezing, No Hemoptysis, No Pleuritic Pain, No Sputum; Other (SOB at rest) Gastrointestinal: Nausea; No Vomiting, No Abdominal Pain, No Diarrhea; C onstipation; No Melena, No Hematochezia; Other (Poor appetite) Genitourinary: No Dysuria, No Frequency, No Incontinence, No Hematuria, No Retention, No Other Musculoskeletal: No other, No neck pain, No shoulder pain, No arm pain, No back pain, No hand pain, No leg pain, No foot pain Skin: No Rash, No Lesions, No Jaundice, No Bruising, No Other Objective Vitals Vital Signs Date Time Temp Pulse Resp B/P (MAP) Pulse Ox O2 Delivery O2 Flow Rate FiO2 10/03/24 10:34 77 18 100 10/03/24 10:28 Nasal Cannula* 1 10/03/24 10:00 94/46 10/03/24 09:00 97.6 97.6 Intake/Output Intake and Output 10/03/24 07:00 Intake Total 1800 ml Output Total 1250 ml Balance 550 ml Intake Oral 1300 ml IV Total 500 ml Output Urine Total 1250 ml Stool Total 0 ml General Appearance: Alert, Oriented X3, Cooperative, mild distress HEENT: Atraumatic, PERRLA Lungs: Clear to auscultation Cardiovascular: Normal S1, Normal S2 Abdomen: Normal bowel sounds Genitourinary: No Apparent Abnormalities Musculoskeletal: Normal sensory function, Normal motor function Neuro: Normal speech, Cranial nerves 3-12 NL Skin: Dry, Intact Psych/Mental Status: Mental status NL, Mood NL Medications Current Medications Medications Dose Ordered Sig/Cathy Route Start Time Stop Time Status Last Admin Dose Admin Albuterol 2.5 mg Q4HPRN PRN NEB 09/10/24 06:30 09/22/24 02:04 2.5 MG Ipratropium [place] 0.5 mg Q4HPRN PRN NEB 09/10/24 06:30 09/22/24 02:04 0.5 MG Vancomycin HCl 0 ml @ 0 mls/hr UD IV 09/10/24 06:30 Cancel Ondansetron HCl 4 mg Q4HP PRN IV 09/10/24 06:30 Docusate Sodium 100 mg BIDPRN PRN PO 09/10/24 06:30 09/11/24 09:53 100 MG Acetaminophen 650 mg Q6HP PRN PO 09/10/24 06:30 09/30/24 00:01 650 MG Nitroglycerin 0.4 mg Q5MINP PRN SL 09/10/24 06:30 Enoxaparin Sodium 70 mg Q12HR SC 09/13/24 22:00 UNV Enteral Nutritional Formula 240 ml TIDWM PO 09/16/24 18:00 10/03/24 12:22 240 ML Nystatin 5 ml QID MT 09/17/24 18:00 10/03/24 12:22 5 ML Albuterol 2.5 mg Q4HWA NEB 09/17/24 18:00 10/03/24 10:28 2.5 MG Ipratropium [place] 0.5 mg Q4HWA NEB 09/17/24 18:00 10/03/24 10:28 0.5 MG Melatonin 10 mg QHSP PRN PO 09/20/24 15:15 09/29/24 22:45 10 MG Potassium Chloride 10 meq DAILY PO 09/23/24 10:00 10/02/24 11:51 10 MEQ Enalaprilat 1.25 mg Q6HP PRN IV 09/22/24 13:00 Apixaban 5 mg BID PO 09/23/24 22:00 10/03/24 09:02 5 MG Piperacillin Sod/ Tazobactam Sod 100 ml @ 25 mls/hr Q8H IV 09/24/24 20:00 10/03/24 12:22 25 MLS/HR Furosemide 40 mg DAILY IV 09/27/24 10:00 10/01/24 10:28 40 MG Vancomycin HCl 0 ml @ 0 mls/hr UD IV 09/29/24 23:15 Vancomycin HCl 200 ml @ 200 mls/hr Q12H IV 09/30/24 10:00 10/03/24 09:02 200 MLS/HR Sodium Chloride 10 ml QSHIFT@10,22 IV 09/30/24 22:00 10/03/24 10:00 10 ML Amphotericin B Liposome 200 mg/ Dextrose 200 ml @ 100 mls/hr DAILY@1800 IV 10/01/24 18:00 10/02/24 19:11 100 MLS/HR Acetaminophen 650 mg UD PO 10/01/24 16:15 Diphenhydramine HCl 25 mg UD IV 10/01/24 16:15 Morphine Sulfate 1 mg Q4HP PRN IV 10/01/24 23:15 10/03/24 05:16 1 MG Laboratory Results Laboratory Tests 10/03/24 10:26 Chemistry Test 10/03/24 10:26 Calcium Level 8.6 mg/dL (8.7-10.4) L Urinalysis Test 09/14/24 08:00 09/30/24 06:15 Urine Osmolality 405 mOsm/kg Urine Creatinine 40.31 mg/dL (30.0-125.0) Urine Protein/Creatinine Ratio 0.54 Urine Sodium 24 mmol/L (40-220) L Urine Total Protein 21.7 mg/dL (1-14) H Urine Color Yellow (Yellow) Urine Clarity Turbid (Clear) H Urine pH 7.0 (5.0-9.0) Urine Specific [place] 1.032 (1.001-1.035) Urine Protein 1+ (Negative) H Urine Ketones Negative (Negative) Urine Blood 1+ /uL (Negative) H Urine Nitrite Negative (Negative) Urine Bilirubin Negative (Negative) Urine Urobilinogen 12 mg/dL (Negative) H Urine Leukocyte Esterase Negative /uL (Negative) Urine RBC 30 /hpf (0 - 3) Urine WBC 9 /hpf (0 - 3) Urine Squamous Epithelial Cells Few /hpf (<5) Urine Bacteria None seen /hpf (None Seen) Urine Hyaline Casts Many /lpf (0 - 2) Urine Mucus Few (None Seen) Urine Glucose Normal mg/dL (Normal) Microbiology Microbiology Date/Time Source Procedure Growth Status 09/30/24 06:15 Voided Urine Urine Culture - Final Complete 09/29/24 10:55 Blood Blood Culture - Preliminary NO GROWTH AFTER 72 HOURS OF INCUBATION. Resulted 09/16/24 20:50 Sputum Gram Stain - Final Complete 09/16/24 20:50 Respiratory Culture - Final Presumptive Desirae albicans Complete 09/13/24 09:50 Nose MRSA Screen - Final Complete Labs and/or images reviewed: Labs reviewed by me, Image(s) reviewed by me Assessment/Plan Assessment/Plan Plan: -sepsis -pneumonia -necrotizing lymph node -bullous emphysema -acute hypoxic respiratory failure -nicotine dependence -atelectasis -hyponatremia -pulmonary mass, rule out CA -DVT to cephalic vein -Deep tissue injury to coccyx -cachexia Plan: Events: Patient was placed on amphotericin B as well as vancomycin by Infectious Disease doctor. WBC decreasing. Afebrile. -continue Eliquis -ID consultation : Recommendations reviewed -pulmonary consultation : Recommendations reviewed -continue current antimicrobial regimen -change to pureed diet with supplementation -bronchodilators -PUD, DVT prophylaxis -repeat labs in a.m.tie -social service consultation to assist with discharge planning. Given patient's multiple comorbidities, please attempt to place this patient at an LTAC. Total time spent with patient discussing and formulating plan of care: 35 minutes. This medical document was created using an electronic medical record system with [employer] dictation system. Although this document has been carefully reviewed, there may still be some phonetic and typographical errors. These areas are purely typographical due to imperfections of the software programs, and do not reflect any compromise in the patient's medical care. Plan discussed with: Patient, Other (RN) My Orders Orders - KYUNG KENDRICK NP Procedure Category Date Status Time * Director Phone CONS 10/03/24 Verified Consult Date of Service: Oct 03, 2024 Billing Provider: KYUNG KENDRICK NP Common Visit Codes: [id number] INP/OBS CARE(HIGH) KYUNG KENDRICK NP Oct 03, 2024 12:39
[2024-10-03] MEDS: D5W 5% IV SCH (18:17)
[2024-10-03] MEDS: VORICONAZOLE IV SCH (18:17)
--- NOTE | 2024-10-03 21:54 | DVHPN2 ---
Progress Note - Dictate Date Seen: Oct 03, 2024 Medical Necessity Reason Pt with a Central, PICC or Fol: Yes The following are medically ne: Lara Catheter Reason for lara catheter: Strict I&O Subjective Patient seen and examined at bedside. Remains on supplemental oxygen Overnight events reviewed. vital signs Vital Sign Date Time Temp Pulse Resp B/P (MAP) Pulse Ox O2 Delivery O2 Flow Rate FiO2 10/03/24 21:28 89 20 100 10/03/24 21:20 Room Air* 0 21 10/03/24 16:43 98.2 99/49 (66) 98.2 Total Intake and Output 10/02/24 10/02/24 10/03/24 15:00 23:00 07:00 Intake Total 200 ml 1150 ml 450 ml Output Total 450 ml 800 ml Balance 200 ml 700 ml -350 ml medications Current Medications Medications Dose Ordered Sig/Cathy Route Start Time Stop Time Status Last Admin Dose Admin Albuterol 2.5 mg Q4HPRN PRN NEB 09/10/24 06:30 09/22/24 02:04 2.5 MG Ipratropium [place] 0.5 mg Q4HPRN PRN NEB 09/10/24 06:30 09/22/24 02:04 0.5 MG Vancomycin HCl 0 ml @ 0 mls/hr UD IV 09/10/24 06:30 Cancel Ondansetron HCl 4 mg Q4HP PRN IV 09/10/24 06:30 Docusate Sodium 100 mg BIDPRN PRN PO 09/10/24 06:30 09/11/24 09:53 100 MG Acetaminophen 650 mg Q6HP PRN PO 09/10/24 06:30 09/30/24 00:01 650 MG Nitroglycerin 0.4 mg Q5MINP PRN SL 09/10/24 06:30 Enoxaparin Sodium 70 mg Q12HR SC 09/13/24 22:00 UNV Enteral Nutritional Formula 240 ml TIDWM PO 09/16/24 18:00 10/03/24 17:05 240 ML Nystatin 5 ml QID MT 09/17/24 18:00 10/03/24 12:22 5 ML Albuterol 2.5 mg Q4HWA NEB 09/17/24 18:00 10/03/24 21:20 2.5 MG Ipratropium [place] 0.5 mg Q4HWA NEB 09/17/24 18:00 10/03/24 21:20 0.5 MG Melatonin 10 mg QHSP PRN PO 09/20/24 15:15 09/29/24 22:45 10 MG Potassium Chloride 10 meq DAILY PO 09/23/24 10:00 10/02/24 11:51 10 MEQ Enalaprilat 1.25 mg Q6HP PRN IV 09/22/24 13:00 Apixaban 5 mg BID PO 09/23/24 22:00 10/03/24 09:02 5 MG Furosemide 40 mg DAILY IV 09/27/24 10:00 10/01/24 10:28 40 MG Vancomycin HCl 0 ml @ 0 mls/hr UD IV 09/29/24 23:15 Vancomycin HCl 200 ml @ 200 mls/hr Q12H IV 09/30/24 10:00 10/03/24 09:02 200 MLS/HR Sodium Chloride 10 ml QSHIFT@10,22 IV 09/30/24 22:00 10/03/24 10:00 10 ML Acetaminophen 650 mg UD PO 10/01/24 16:15 Cancel Diphenhydramine HCl 25 mg UD IV 10/01/24 16:15 Cancel Morphine Sulfate 1 mg Q4HP PRN IV 10/01/24 23:15 10/03/24 05:16 1 MG Voriconazole 330 mg/Dextrose 283 ml @ 141.5 mls/ hr Q12H IV 10/03/24 15:00 10/04/24 04:59 10/03/24 18:17 141.5 MLS/HR Voriconazole 220 mg/Dextrose 272 ml @ 136 mls/hr Q12H IV 10/04/24 15:00 objective Gen.: Patient lying in bed in no apparent distress. On supplemental oxygen. Head: Normocephalic, atraumatic. Eyes: EOMI/PERRLA. Ears: Normal hearing. Normal anatomy. Neck/trachea: Trachea midline, supple. Nose: Normal external anatomy. Mouth: Moist mucous membranes. Chest: Decreased air entry bilaterally. No wheezing or rhonchi. Positive crackles. Cardiovascular: Positive S1, positive S2. Regular rate and rhythm. Abdomen: Positive bowel sounds in all 4 quadrants. Soft, non-tender, non- distended. : Deferred. Rectal: Deferred. Skin: Warm, dry. Intact. Extremities: 2+ radial pulses bilaterally. No lower extremity edema. Neuro: Awake, alert, oriented x3. No gross motor or sensory deficits. Cranial nerves II through XII intact. Gait not assessed. laboratory and microbiology Laboratory Tests 10/03/24 10:26 Test 10/03/24 10:26 Range/Units Serum Glucose 130 H 74-106 mg/dL Assessment/Plan Impression: Acute hypoxic respiratory failure Pneumonia COPD Emphysema, paraseptal and centrilobular Fibroid atelectatic opacities in the right middle lobe, lingula and bilateral lower lobes. Calcified pleural plaques in the right upper lobe and posterior aspects of the lower lobes bilaterally Pleural effusions, Atelectasis Hyponatremia Events: Remains on supplemental O2 at 1 LPM NC. O2 sat 98% Taper O2 as tolerated Incentive spirometry Continue bronchodilators NTS PRN. Continue antibiotics - Zosyn, vancomycin. Continue antifungals On nystatin ID recs appreciated. Pain control Avoid oversedation Monitor wbc Monitor platelet count. Wound care Head of bed elevation Aspiration precautions Continue Eliquis BID for AFib. Ensure for nutritional support. PT/OT. Lara d/t urinary retention. HERSON resolved after Lara placement - HERSON likely due to urine retention. Disposition per hospitalist. Labs and imaging reviewed. Rest of plan as noted below. Plan: Supplemental oxygen Keep O2 saturation above 92% CT chest report and images reviewed. Emphysematous changes. Fibro atelectatic opacity in the right middle lobe, lingula and bilateral lower lobes. Calcified plaques in the right upper and bilateral lower lobes and posteriorly. Minimal pleural effusions and atelectasis. Antibiotics. Monitor WBC count. Blood cultures show no growth. Continue bronchodilators as needed. Pain control. Avoid over-sedation. Incentive spirometry. IV fluids at 60 mL an hour. Maintain euvolemia Monitor renal function. Monitor electrolytes. Supplement as necessary. Hyponatremia - Monitor sodium DVT prophylaxis Prognosis: Guarded given multiple comorbidities. Rest of plan per hospitalist and other consultants. Thank you Dr. Reed for allowing me to participate in this patient's care. Further recommendations will depend on patient's clinical course. Please do not hesitate to contact me if you have any questions or concerns. This medical document was created using an electronic medical record system with [employer] system. Although this document has been carefully reviewed, there may still be some phonetic and typographical errors. These areas are purely typographical due to imperfections of the software programs, and do not reflect any compromise in the patient's medical care. Dietary Evaluation Review Comments: 1) Consider SORAIDA 1 pkt BID for wounds 2) Continue current plan of care Expected Outcomes/Goals: F/U in 3-5 days Plan discussed with: Patient, Other (JEANNINE Lopez) TORITO URBAN MD Oct 03, 2024 21:54
--- NOTE | 2024-10-03 22:28 | DVHPN2 ---
Consult Progress Note Date Seen: Oct 03, 2024 Subjective Patient reports: Feels better (mildly hypotensive, improved strength) Objective vital signs Vital Sign Date Time Temp Pulse Resp B/P (MAP) Pulse Ox O2 Delivery O2 Flow Rate FiO2 10/03/24 21:28 89 20 100 10/03/24 21:20 Room Air* 0 21 10/03/24 16:43 98.2 99/49 (66) 98.2 Total Intake and Output 10/02/24 10/02/24 10/03/24 15:00 23:00 07:00 Intake Total 200 ml 1150 ml 450 ml Output Total 450 ml 800 ml Balance 200 ml 700 ml -350 ml medications Current Medications Medications Dose Ordered Sig/Cathy Route Start Time Stop Time Status Last Admin Dose Admin Albuterol 2.5 mg Q4HPRN PRN NEB 09/10/24 06:30 09/22/24 02:04 2.5 MG Ipratropium [place] 0.5 mg Q4HPRN PRN NEB 09/10/24 06:30 09/22/24 02:04 0.5 MG Vancomycin HCl 0 ml @ 0 mls/hr UD IV 09/10/24 06:30 Cancel Ondansetron HCl 4 mg Q4HP PRN IV 09/10/24 06:30 Docusate Sodium 100 mg BIDPRN PRN PO 09/10/24 06:30 09/11/24 09:53 100 MG Acetaminophen 650 mg Q6HP PRN PO 09/10/24 06:30 09/30/24 00:01 650 MG Nitroglycerin 0.4 mg Q5MINP PRN SL 09/10/24 06:30 Enoxaparin Sodium 70 mg Q12HR SC 09/13/24 22:00 UNV Enteral Nutritional Formula 240 ml TIDWM PO 09/16/24 18:00 10/03/24 17:05 240 ML Nystatin 5 ml QID MT 09/17/24 18:00 10/03/24 12:22 5 ML Albuterol 2.5 mg Q4HWA NEB 09/17/24 18:00 10/03/24 21:20 2.5 MG Ipratropium [place] 0.5 mg Q4HWA NEB 09/17/24 18:00 10/03/24 21:20 0.5 MG Melatonin 10 mg QHSP PRN PO 09/20/24 15:15 09/29/24 22:45 10 MG Potassium Chloride 10 meq DAILY PO 09/23/24 10:00 10/02/24 11:51 10 MEQ Enalaprilat 1.25 mg Q6HP PRN IV 09/22/24 13:00 Apixaban 5 mg BID PO 09/23/24 22:00 10/03/24 09:02 5 MG Furosemide 40 mg DAILY IV 09/27/24 10:00 10/01/24 10:28 40 MG Vancomycin HCl 0 ml @ 0 mls/hr UD IV 09/29/24 23:15 Vancomycin HCl 200 ml @ 200 mls/hr Q12H IV 09/30/24 10:00 10/03/24 09:02 200 MLS/HR Sodium Chloride 10 ml QSHIFT@10,22 IV 09/30/24 22:00 10/03/24 10:00 10 ML Acetaminophen 650 mg UD PO 10/01/24 16:15 Cancel Diphenhydramine HCl 25 mg UD IV 10/01/24 16:15 Cancel Morphine Sulfate 1 mg Q4HP PRN IV 10/01/24 23:15 10/03/24 05:16 1 MG Voriconazole 330 mg/Dextrose 283 ml @ 141.5 mls/ hr Q12H IV 10/03/24 15:00 10/04/24 04:59 10/03/24 18:17 141.5 MLS/HR Voriconazole 220 mg/Dextrose 272 ml @ 136 mls/hr Q12H IV 10/04/24 15:00 - CONSTITUTIONAL: Endorses weakness. Denies weight loss, fever, and chills. - HEENT: Denies changes in vision and hearing. - RESPIRATORY: Reports shortness of breath. Denies cough. - CV: Denies palpitations and chest pain. - GI: Reports nausea, vomiting, and diarrhea. Denies abdominal pain. - : Denies dysuria and urinary frequency. - MSK: Reports frequent falls. Denies myalgia and joint pain. - SKIN: Denies rash and pruritus. - NEUROLOGICAL: A&Ox4 - PSYCHIATRIC: Denies recent changes in mood, anxiety, and depression. laboratory and microbiology Laboratory Tests 10/03/24 10:26 Test 10/03/24 10:26 Range/Units Serum Glucose 130 H 74-106 mg/dL Problem List/Assessment/Plan Problem List/Assessment/Plan ID Problem List: -- Generalized weakness -- Fall with head injury -- Multifocal pneumonia -- Leukocytosis -- COPD exacerbation -- Hyponatremia -- Stage 2 sacral ulcers -- Tobacco use disorder Assessment This is a 79 y.o. male with a past medical history of asthma, COPD, and depression, who presents with generalized weakness and a fall resulting in a forehead abrasion. He has been experiencing loss of appetite, no bowel movements, and shortness of breath. Laboratory findings show leukocytosis with a WBC count of 35.6??10?/L, thrombocytosis with platelets at 539??10?/L, hyponatremia with sodium at 120?mmol/L, BUN of 22?mg/dL, creatinine of 0.6?mg/dL, glucose of 102?mg/dL, lactic acid of 1.5?mmol/L, and hemoglobin of 13.7?g/dL. CT head showed no acute abnormality. Chest CT revealed thyromegaly and extensive alveolar and parenchymal infiltrates in both lungs, seen in the right middle lobe, lingula, and both lower lobes. He was started empirically on vancomycin and ceftriaxone; azithromycin was later added. The patient has stage 2 sacral ulcers, non-purulent and non-eroded. 09/13: On imaging his doppler lower extemity ultrasound shows a nonocclusive thrombo scene in the proximal left superficial fomoral vein. CT of lungs which showed no pulmonary embolism. diffuse abnormal tissue density in posterior media steinum extened from the upper thorax to diaphragmatic hiatus with small air bubbles thats increased in size compared to last exam, which could represent nectrotic adenopathy abscess or esophageal injury or rupture. component on the left at the diaphragmatic hiatus is recommended , smoking related lung disease , patchy eclecticism consolidation. 09/14: white count remains elevated at 33. Dr choi from oncology saw patinet and suggent proliferative disorder is a possiblility but will asses after antibiotics, as well as consider a biopsy after a few weeks. MRSA nares came negative. 09/15: white count is slowing coming down and a backorder of levofloxacin 09/16: white count is slowly downtrending now at 28, 2 liters nasal canula 09/17: Patient was able to produce and induced sputum sample and so far results are with no growth 09/21: White count continues to downtrend now at 13 09/22: white count is 17.2 , chest xray shows stable mass like opacities in both lungs , had a biopsy done of a left pair of veterebral mass , 5 core biopsies were obtained 09/23: white count is elevated at 18 , chest x-ray showed stable mass capacities throughout both lungs, patient is negative for HIV 09/24: Chest xray shows plural classifications and airspace opacities appear to be similar to prior examination. stable blunting of constophrenic agles , appears overall stable but on more oxygen then what he came in with . getting bicarbonate greater than 40 09/25: white count is 10.3 , significant improvement fungal serolgies and quant tb is negative 09/30: white count is 14.9 , thrombocytosis is 872 , concerned that patient is still having an undiagnosed infection that is not being treated adequately. Fungal serologies have come back negative , Tp came back negative and patient is tolerating antibiotic treatments 10/01: nonspecific inflammation on lymph node biopsy Plan: - repeat sputum culture - stop ampho b, start voriconazole - follow up on pathology results as this can ultimately help us understand what type of infection is present here - recommend getting CBC and check daily - continue vancomycin empirically for presumed HAP, repeat sputum culture -- Implement wound care for stage 2 sacral ulcers. -- Monitor vital signs and oxygen saturation. Isolation Precautions: Standard Plan discussed with: Patient Dietary Evaluation Review Comments: 1) Consider SORAIDA 1 pkt BID for wounds 2) Continue current plan of care Expected Outcomes/Goals: F/U in 3-5 days SHELBY OQUENDO MD Oct 03, 2024 22:28
[2024-10-04] VITALS (22 sets, daily range): BP systolic 95–109; BP diastolic 44–54; PULSE 74–94; RESP 16–19; TEMP 97.1–98.6; O2SAT 94–100
[2024-10-04 06:40] LABS: Anion Gap 8 (5-15); Carbon Dioxide 29 mmol/L (20-31); Chloride 96 mmol/L (98-107); Potassium 3.5 mmol/L (3.5-5.1); Sodium 133 mmol/L (136-145)
[2024-10-04 06:41] LABS: Calcium 8.8 mg/dL (8.7-10.4)
[2024-10-04 06:46] LABS: BUN/Creatinine Ratio 37.5 (10.0-20.0); Blood Urea Nitrogen 12 mg/dL (9-23); Glucose 77 mg/dL (74-106)
[2024-10-04] MEDS: HYDROcodone-ACET 5/325MG TAB PO PRN (11:32)
--- NOTE | 2024-10-04 13:25 | DVHPN2 ---
Subjective Patient was states that he feels better. Reviewed: Care Plan, H&P, Labs Changes from previous H/P or p: No Changes Eyes: No Pain, No Vision change, No Conjunctivae inflammation, No Eyelid inflammation, No Other, No Redness ENT: No Ear pain, No Ear discharge, No Nose pain, No Nose discharge, No Nose congestion, No Mouth pain, No Mouth swelling, No Throat pain, No Throat swelling, No Other Cardiovascular: No Chest Pain, No Palpitations, No Orthopnea, No Paroxysmal Noc. Dyspnea, No Edema, No Lt Headedness, No Other Respiratory: No Cough, No Dry; Shortness of breath, SOB with excertion; No Wheezing, No Hemoptysis, No Pleuritic Pain, No Sputum; Other (SOB at rest) Gastrointestinal: Nausea; No Vomiting, No Abdominal Pain, No Diarrhea; C onstipation; No Melena, No Hematochezia; Other (Poor appetite) Genitourinary: No Dysuria, No Frequency, No Incontinence, No Hematuria, No Retention, No Other Musculoskeletal: No other, No neck pain, No shoulder pain, No arm pain, No back pain, No hand pain, No leg pain, No foot pain Skin: No Rash, No Lesions, No Jaundice, No Bruising, No Other Objective Vitals Vital Signs Date Time Temp Pulse Resp B/P (MAP) Pulse Ox O2 Delivery O2 Flow Rate FiO2 10/04/24 10:29 76 18 100 10/04/24 10:00 Nasal Cannula* 1 24 10/04/24 09:35 100/47 10/04/24 09:00 97.1 97.1 Intake/Output Intake and Output 10/04/24 07:00 Intake Total 1750 ml Output Total 850 ml Balance 900 ml Intake Oral 1200 ml IV Total 550 ml Output Urine Total 850 ml General Appearance: Alert, Oriented X3, Cooperative, mild distress HEENT: Atraumatic, PERRLA Lungs: Clear to auscultation Cardiovascular: Normal S1, Normal S2 Abdomen: Normal bowel sounds Genitourinary: No Apparent Abnormalities Musculoskeletal: Normal sensory function, Normal motor function Neuro: Normal speech, Cranial nerves 3-12 NL Skin: Dry, Intact Psych/Mental Status: Mental status NL, Mood NL Medications Current Medications Medications Dose Ordered Sig/Cathy Route Start Time Stop Time Status Last Admin Dose Admin Albuterol 2.5 mg Q4HPRN PRN NEB 09/10/24 06:30 09/22/24 02:04 2.5 MG Ipratropium [place] 0.5 mg Q4HPRN PRN NEB 09/10/24 06:30 09/22/24 02:04 0.5 MG Vancomycin HCl 0 ml @ 0 mls/hr UD IV 09/10/24 06:30 Cancel Ondansetron HCl 4 mg Q4HP PRN IV 09/10/24 06:30 Docusate Sodium 100 mg BIDPRN PRN PO 09/10/24 06:30 09/11/24 09:53 100 MG Acetaminophen 650 mg Q6HP PRN PO 09/10/24 06:30 09/30/24 00:01 650 MG Nitroglycerin 0.4 mg Q5MINP PRN SL 09/10/24 06:30 Enoxaparin Sodium 70 mg Q12HR SC 09/13/24 22:00 UNV Enteral Nutritional Formula 240 ml TIDWM PO 09/16/24 18:00 10/04/24 11:32 240 ML Nystatin 5 ml QID MT 09/17/24 18:00 10/04/24 06:13 5 ML Albuterol 2.5 mg Q4HWA [facility] 09/17/24 18:00 10/04/24 10:19 2.5 MG Ipratropium [place] 0.5 mg Q4HWA [facility] 09/17/24 18:00 10/04/24 10:19 0.5 MG Melatonin 10 mg QHSP PRN PO 09/20/24 15:15 09/29/24 22:45 10 MG Potassium Chloride 10 meq DAILY PO 09/23/24 10:00 10/02/24 11:51 10 MEQ Enalaprilat 1.25 mg Q6HP PRN IV 09/22/24 13:00 Apixaban 5 mg BID PO 09/23/24 22:00 10/04/24 09:34 5 MG Furosemide 40 mg DAILY IV 09/27/24 10:00 10/01/24 10:28 40 MG Vancomycin HCl 0 ml @ 0 mls/hr UD IV 09/29/24 23:15 Vancomycin HCl 200 ml @ 200 mls/hr Q12H IV 09/30/24 10:00 10/04/24 11:30 200 MLS/HR Sodium Chloride 10 ml QSHIFT@10,22 IV 09/30/24 22:00 10/04/24 09:35 10 ML Acetaminophen 650 mg UD PO 10/01/24 16:15 Cancel Diphenhydramine HCl 25 mg UD IV 10/01/24 16:15 Cancel Morphine Sulfate 1 mg Q4HP PRN IV 10/01/24 23:15 10/03/24 05:16 1 MG Voriconazole 220 mg/Dextrose 272 ml @ 136 mls/hr Q12H IV 10/04/24 15:00 Acetaminophen/ Hydrocodone Bitart 1 tab Q4HPRN PRN PO 10/04/24 10:45 10/04/24 11:32 1 TAB Laboratory Results Laboratory Tests 10/03/24 10:26 10/04/24 04:49 Chemistry Test 10/04/24 04:49 Calcium Level 8.8 mg/dL (8.7-10.4) Urinalysis Test 09/14/24 08:00 09/30/24 06:15 Urine Osmolality 405 mOsm/kg Urine Creatinine 40.31 mg/dL (30.0-125.0) Urine Protein/Creatinine Ratio 0.54 Urine Sodium 24 mmol/L (40-220) L Urine Total Protein 21.7 mg/dL (1-14) H Urine Color Yellow (Yellow) Urine Clarity Turbid (Clear) H Urine pH 7.0 (5.0-9.0) Urine Specific [place] 1.032 (1.001-1.035) Urine Protein 1+ (Negative) H Urine Ketones Negative (Negative) Urine Blood 1+ /uL (Negative) H Urine Nitrite Negative (Negative) Urine Bilirubin Negative (Negative) Urine Urobilinogen 12 mg/dL (Negative) H Urine Leukocyte Esterase Negative /uL (Negative) Urine RBC 30 /hpf (0 - 3) Urine WBC 9 /hpf (0 - 3) Urine Squamous Epithelial Cells Few /hpf (<5) Urine Bacteria None seen /hpf (None Seen) Urine Hyaline Casts Many /lpf (0 - 2) Urine Mucus Few (None Seen) Urine Glucose Normal mg/dL (Normal) Microbiology Microbiology Date/Time Source Procedure Growth Status 09/30/24 06:15 Voided Urine Urine Culture - Final Complete 09/29/24 10:55 Blood Blood Culture - Final NO GROWTH AFTER 5 DAYS OF INCUBATION. Complete 09/16/24 20:50 Sputum Gram Stain - Final Complete 09/16/24 20:50 Respiratory Culture - Final Presumptive Desirae albicans Complete 09/13/24 09:50 Nose MRSA Screen - Final Complete Labs and/or images reviewed: Labs reviewed by me, Image(s) reviewed by me Assessment/Plan Assessment/Plan Plan: -sepsis -pneumonia -necrotizing lymph node -bullous emphysema -acute hypoxic respiratory failure -nicotine dependence -atelectasis -hyponatremia -pulmonary mass, rule out CA -DVT to cephalic vein -Deep tissue injury to coccyx -cachexia Plan: Events: Patient was placed on amphotericin B as well as vancomycin by Infectious Disease doctor. WBC decreasing. Afebrile. No change in a/P on 10/04/2024 -continue Eliquis -ID consultation : Recommendations reviewed -pulmonary consultation : Recommendations reviewed -continue current antimicrobial regimen -change to pureed diet with supplementation -bronchodilators -PUD, DVT prophylaxis -social service consultation to assist with discharge planning. Given patient's multiple comorbidities, please attempt to place this patient at an LTAC. Total time spent with patient discussing and formulating plan of care: 35 minutes. This medical document was created using an electronic medical record system with [employer] dictation system. Although this document has been carefully reviewed, there may still be some phonetic and typographical errors. These areas are purely typographical due to imperfections of the software programs, and do not reflect any compromise in the patient's medical care. Plan discussed with: Patient, Other (RN) Date of Service: Oct 04, 2024 Billing Provider: KYUNG KENDRICK NP Common Visit Codes: [id number] INP/OBS CARE(HIGH) KYUNG KENDRICK NP Oct 04, 2024 13:25
[2024-10-04] MEDS: VORICONAZOLE IV SCH (16:00)
[2024-10-04] MEDS: D5W 5% IV SCH (16:00)
[2024-10-04 18:10] LABS: Basophils # (auto) 0.1 10 ^3/uL (0-0.2); Basophils % (auto) 0.4 % (0.0-2.0); Eosinophils # (auto) 0.2 10 ^3/uL (0-0.8); Eosinophils % (auto) 1.3 % (0.0-7.0); Hematocrit 27.4 % (41.0-53.0); Hemoglobin 8.8 g/dL (13.5-17.5); Lymphocytes # (auto) 0.7 10 ^3/uL (0.4-5.4); Lymphocytes % (auto) 5.6 % (10.0-50.0); Mean Corpuscular Hemoglobin 29.5 pg (28.0-32.0); Mean Corpuscular Hgb Conc. 32.3 g/dL (32.0-36.0); Mean Corpuscular Volume 91.4 fL (80.0-100.0); Monocytes # (auto) 1.2 10 ^3/uL (0-1.3); Monocytes % (auto) 8.9 % (0.0-12.0); Neutrophils # (auto) 11.2 10 ^3/uL (1.6-8.6); Neutrophils % (auto) 83.8 % (37.0-80.0); Platelet Count (auto) 706 10^3/uL (140-450); Red Blood Cells 2.99 10^6/uL (4.5-5.90); Red Cell Distribution Width 14.8 % (11.8-14.3); White Blood Cell 13.4 10^3/uL (4.4-10.8)
--- NOTE | 2024-10-04 20:15 | DVHPN2 ---
Consult Progress Note Date Seen: Oct 04, 2024 Subjective Patient reports: Feels better (breathing well on 1 liter nasal canula , got voriconazole dose late yesterday , dimished breath sounds in the bases ) Objective vital signs Vital Sign Date Time Temp Pulse Resp B/P (MAP) Pulse Ox O2 Delivery O2 Flow Rate FiO2 10/04/24 19:10 84 18 100 10/04/24 19:03 Nasal Cannula 1.0 10/04/24 19:03 24 10/04/24 17:00 98.6 104/49 (67) 98.6 Total Intake and Output 10/03/24 10/03/24 10/04/24 15:00 23:00 07:00 Intake Total 300 ml 900 ml 550 ml Output Total 300 ml 550 ml Balance 300 ml 600 ml 0 ml medications Current Medications Medications Dose Ordered Sig/Cathy Route Start Time Stop Time Status Last Admin Dose Admin Albuterol 2.5 mg Q4HPRN PRN NEB 09/10/24 06:30 09/22/24 02:04 2.5 MG Ipratropium [place] 0.5 mg Q4HPRN PRN NEB 09/10/24 06:30 09/22/24 02:04 0.5 MG Vancomycin HCl 0 ml @ 0 mls/hr UD IV 09/10/24 06:30 Cancel Ondansetron HCl 4 mg Q4HP PRN IV 09/10/24 06:30 Docusate Sodium 100 mg BIDPRN PRN PO 09/10/24 06:30 09/11/24 09:53 100 MG Acetaminophen 650 mg Q6HP PRN PO 09/10/24 06:30 09/30/24 00:01 650 MG Nitroglycerin 0.4 mg Q5MINP PRN SL 09/10/24 06:30 Enoxaparin Sodium 70 mg Q12HR SC 09/13/24 22:00 UNV Enteral Nutritional Formula 240 ml TIDWM PO 09/16/24 18:00 10/04/24 17:29 240 ML Nystatin 5 ml QID MT 09/17/24 18:00 10/04/24 06:13 5 ML Albuterol 2.5 mg Q4HWA NEB 09/17/24 18:00 10/04/24 19:00 2.5 MG Ipratropium [place] 0.5 mg Q4HWA NEB 09/17/24 18:00 10/04/24 19:00 0.5 MG Melatonin 10 mg QHSP PRN PO 09/20/24 15:15 09/29/24 22:45 10 MG Potassium Chloride 10 meq DAILY PO 09/23/24 10:00 10/02/24 11:51 10 MEQ Enalaprilat 1.25 mg Q6HP PRN IV 09/22/24 13:00 Apixaban 5 mg BID PO 09/23/24 22:00 10/04/24 09:34 5 MG Furosemide 40 mg DAILY IV 09/27/24 10:00 10/01/24 10:28 40 MG Vancomycin HCl 0 ml @ 0 mls/hr UD IV 09/29/24 23:15 Cancel Sodium Chloride 10 ml QSHIFT@10,22 IV 09/30/24 22:00 10/04/24 09:35 10 ML Acetaminophen 650 mg UD PO 10/01/24 16:15 Cancel Diphenhydramine HCl 25 mg UD IV 10/01/24 16:15 Cancel Morphine Sulfate 1 mg Q4HP PRN IV 10/01/24 23:15 10/03/24 05:16 1 MG Voriconazole 220 mg/Dextrose 272 ml @ 136 mls/hr Q12H IV 10/04/24 15:00 10/04/24 16:00 136 MLS/HR Acetaminophen/ Hydrocodone Bitart 1 tab Q4HPRN PRN PO 10/04/24 10:45 10/04/24 16:26 1 TAB Vancomycin HCl 250 ml @ 250 mls/hr Q18H IV 10/05/24 05:00 Cancel Trimethoprim/ Sulfamethoxazole 1 tab Q12HR PO 10/04/24 22:00 - CONSTITUTIONAL: Endorses weakness. Denies weight loss, fever, and chills. - HEENT: Denies changes in vision and hearing. - RESPIRATORY: Reports shortness of breath. Denies cough. - CV: Denies palpitations and chest pain. - GI: Reports nausea, vomiting, and diarrhea. Denies abdominal pain. - : Denies dysuria and urinary frequency. - MSK: Reports frequent falls. Denies myalgia and joint pain. - SKIN: Denies rash and pruritus. - NEUROLOGICAL: A&Ox4 - PSYCHIATRIC: Denies recent changes in mood, anxiety, and depression. laboratory and microbiology Laboratory Tests 10/04/24 17:37 10/04/24 04:49 Test 10/04/24 04:49 Range/Units Serum Glucose 77 74-106 mg/dL Problem List/Assessment/Plan Problems(with codes): (1) Generalized weakness (2) Multifocal pneumonia (3) Hyponatremia (4) Hypertension (5) Leukocytosis, unspecified (6) Status asthmaticus (7) Pneumonia (8) COPD (chronic obstructive pulmonary disease) (9) SHORTNESS OF BREATH (10) ASTHMA, CHRONIC OBSTRUCTIVE W ASTHMATICUS Problem List/Assessment/Plan ID Problem List: -- Generalized weakness -- Fall with head injury -- Multifocal pneumonia -- Leukocytosis -- COPD exacerbation -- Hyponatremia -- Stage 2 sacral ulcers -- Tobacco use disorder Assessment This is a 79 y.o. male with a past medical history of asthma, COPD, and depression, who presents with generalized weakness and a fall resulting in a forehead abrasion. He has been experiencing loss of appetite, no bowel movements, and shortness of breath. Laboratory findings show leukocytosis with a WBC count of 35.6??10?/L, thrombocytosis with platelets at 539??10?/L, hyponatremia with sodium at 120?mmol/L, BUN of 22?mg/dL, creatinine of 0.6?mg/dL, glucose of 102?mg/dL, lactic acid of 1.5?mmol/L, and hemoglobin of 13.7?g/dL. CT head showed no acute abnormality. Chest CT revealed thyromegaly and extensive alveolar and parenchymal infiltrates in both lungs, seen in the right middle lobe, lingula, and both lower lobes. He was started empirically on vancomycin and ceftriaxone; azithromycin was later added. The patient has stage 2 sacral ulcers, non-purulent and non-eroded. 09/13: On imaging his doppler lower extemity ultrasound shows a nonocclusive thrombo scene in the proximal left superficial fomoral vein. CT of lungs which showed no pulmonary embolism. diffuse abnormal tissue density in posterior media steinum extened from the upper thorax to diaphragmatic hiatus with small air bubbles thats increased in size compared to last exam, which could represent nectrotic adenopathy abscess or esophageal injury or rupture. component on the left at the diaphragmatic hiatus is recommended , smoking related lung disease , patchy eclecticism consolidation. 11/13: white count remains elevated at 33. Dr choi from oncology saw patinet and suggent proliferative disorder is a possiblility but will asses after antibiotics, as well as consider a biopsy after a few weeks. MRSA nares came negative. 09/15: white count is slowing coming down and a backorder of levofloxacin 09/16: white count is slowly downtrending now at 28, 2 liters nasal canula 09/17: Patient was able to produce and induced sputum sample and so far results are with no growth 09/21: White count continues to downtrend now at 13 09/22: white count is 17.2 , chest xray shows stable mass like opacities in both lungs , had a biopsy done of a left pair of veterebral mass , 5 core biopsies were obtained 09/23: white count is elevated at 18 , chest x-ray showed stable mass capacities throughout both lungs, patient is negative for HIV 09/24: Chest xray shows plural classifications and airspace opacities appear to be similar to prior examination. stable blunting of constophrenic agles , appears overall stable but on more oxygen then what he came in with . getting bicarbonate greater than 40 09/25: white count is 10.3 , significant improvement fungal serolgies and quant tb is negative 09/30: white count is 14.9 , thrombocytosis is 872 , concerned that patient is still having an undiagnosed infection that is not being treated adequately. Fungal serologies have come back negative , Tp came back negative and patient is tolerating antibiotic treatments 10/01: nonspecific inflammation on lymph node biopsy 10/04: Tolerating voriconazole Plan: - repeat sputum culture - Continue voriconazole - Stop vancomycin - Start bactrum -- Implement wound care for stage 2 sacral ulcers. -- Monitor vital signs and oxygen saturation. Isolation Precautions: Standard Plan discussed with: Other Dietary Evaluation Review Comments: 1) Consider SORAIDA 1 pkt BID for wounds 2) Continue current plan of care Expected Outcomes/Goals: F/U in 3-5 days SHELBY OQUENDO MD Oct 04, 2024 20:15
[2024-10-04] MEDS: SULFAMETHOX W/TRIMETH(800/160MG) DS TAB PO SCH (20:20)
--- NOTE | 2024-10-04 20:32 | DVHPN2 ---
Progress Note - Dictate Date Seen: Oct 04, 2024 Medical Necessity Reason Pt with a Central, PICC or Fol: Yes The following are medically ne: Lara Catheter Reason for lara catheter: Strict I&O Subjective Patient seen and examined at bedside. Remains on supplemental oxygen Overnight events reviewed. vital signs Vital Sign Date Time Temp Pulse Resp B/P (MAP) Pulse Ox O2 Delivery O2 Flow Rate FiO2 10/04/24 19:10 84 18 100 10/04/24 19:03 Nasal Cannula 1.0 10/04/24 19:03 24 10/04/24 17:00 98.6 104/49 (67) 98.6 Total Intake and Output 10/03/24 10/03/24 10/04/24 15:00 23:00 07:00 Intake Total 300 ml 900 ml 550 ml Output Total 300 ml 550 ml Balance 300 ml 600 ml 0 ml medications Current Medications Medications Dose Ordered Sig/Cathy Route Start Time Stop Time Status Last Admin Dose Admin Albuterol 2.5 mg Q4HPRN PRN NEB 09/10/24 06:30 09/22/24 02:04 2.5 MG Ipratropium [place] 0.5 mg Q4HPRN PRN NEB 09/10/24 06:30 09/22/24 02:04 0.5 MG Vancomycin HCl 0 ml @ 0 mls/hr UD IV 09/10/24 06:30 Cancel Ondansetron HCl 4 mg Q4HP PRN IV 09/10/24 06:30 Docusate Sodium 100 mg BIDPRN PRN PO 09/10/24 06:30 09/11/24 09:53 100 MG Acetaminophen 650 mg Q6HP PRN PO 09/10/24 06:30 09/30/24 00:01 650 MG Nitroglycerin 0.4 mg Q5MINP PRN SL 09/10/24 06:30 Enoxaparin Sodium 70 mg Q12HR SC 09/13/24 22:00 UNV Enteral Nutritional Formula 240 ml TIDWM PO 09/16/24 18:00 10/04/24 17:29 240 ML Nystatin 5 ml QID MT 09/17/24 18:00 10/04/24 06:13 5 ML Albuterol 2.5 mg Q4HWA NEB 09/17/24 18:00 10/04/24 19:00 2.5 MG Ipratropium [place] 0.5 mg Q4HWA NEB 09/17/24 18:00 10/04/24 19:00 0.5 MG Melatonin 10 mg QHSP PRN PO 09/20/24 15:15 09/29/24 22:45 10 MG Potassium Chloride 10 meq DAILY PO 09/23/24 10:00 10/02/24 11:51 10 MEQ Enalaprilat 1.25 mg Q6HP PRN IV 09/22/24 13:00 Apixaban 5 mg BID PO 09/23/24 22:00 10/04/24 09:34 5 MG Furosemide 40 mg DAILY IV 09/27/24 10:00 10/01/24 10:28 40 MG Vancomycin HCl 0 ml @ 0 mls/hr UD IV 09/29/24 23:15 Cancel Sodium Chloride 10 ml QSHIFT@10,22 IV 09/30/24 22:00 10/04/24 09:35 10 ML Acetaminophen 650 mg UD PO 10/01/24 16:15 Cancel Diphenhydramine HCl 25 mg UD IV 10/01/24 16:15 Cancel Morphine Sulfate 1 mg Q4HP PRN IV 10/01/24 23:15 10/03/24 05:16 1 MG Voriconazole 220 mg/Dextrose 272 ml @ 136 mls/hr Q12H IV 10/04/24 15:00 10/04/24 16:00 136 MLS/HR Acetaminophen/ Hydrocodone Bitart 1 tab Q4HPRN PRN PO 10/04/24 10:45 10/04/24 16:26 1 TAB Vancomycin HCl 250 ml @ 250 mls/hr Q18H IV 10/05/24 05:00 Cancel Trimethoprim/ Sulfamethoxazole 1 tab Q12HR PO 10/04/24 22:00 objective Gen.: Patient lying in bed in no apparent distress. On supplemental oxygen. Head: Normocephalic, atraumatic. Eyes: EOMI/PERRLA. Ears: Normal hearing. Normal anatomy. Neck/trachea: Trachea midline, supple. Nose: Normal external anatomy. Mouth: Moist mucous membranes. Chest: Decreased air entry bilaterally. No wheezing or rhonchi. Positive crackles. Cardiovascular: Positive S1, positive S2. Regular rate and rhythm. Abdomen: Positive bowel sounds in all 4 quadrants. Soft, non-tender, non- distended. : Deferred. Rectal: Deferred. Skin: Warm, dry. Intact. Extremities: 2+ radial pulses bilaterally. No lower extremity edema. Neuro: Awake, alert, oriented x3. No gross motor or sensory deficits. Cranial nerves II through XII intact. Gait not assessed. laboratory and microbiology Laboratory Tests 10/04/24 17:37 10/04/24 04:49 Test 10/04/24 04:49 Range/Units Serum Glucose 77 74-106 mg/dL Assessment/Plan Impression: Acute hypoxic respiratory failure Pneumonia COPD Emphysema, paraseptal and centrilobular Fibroid atelectatic opacities in the right middle lobe, lingula and bilateral lower lobes. Calcified pleural plaques in the right upper lobe and posterior aspects of the lower lobes bilaterally Pleural effusions, Atelectasis Hyponatremia Events: Remains on supplemental O2 at 2 LPM NC. Taper O2 as tolerated Incentive spirometry Continue bronchodilators NTS PRN. Continue antibiotics - vancomycin. Nystatin Pain control Avoid oversedation Monitor wbc Monitor platelet count. Wound care Head of bed elevation Aspiration precautions Continue Eliquis BID for AFib. Ensure for nutritional support. PT/OT. Lara d/t urinary retention. HERSON resolved after Lara placement - HERSON likely due to urine retention. Disposition per hospitalist. Labs and imaging reviewed. Rest of plan as noted below. Plan: Supplemental oxygen Keep O2 saturation above 92% CT chest report and images reviewed. Emphysematous changes. Fibro atelectatic opacity in the right middle lobe, lingula and bilateral lower lobes. Calcified plaques in the right upper and bilateral lower lobes and posteriorly. Minimal pleural effusions and atelectasis. Antibiotics. Monitor WBC count. Blood cultures show no growth. Continue bronchodilators as needed. Pain control. Avoid over-sedation. Incentive spirometry. IV fluids at 60 mL an hour. Maintain euvolemia Monitor renal function. Monitor electrolytes. Supplement as necessary. Hyponatremia - Monitor sodium DVT prophylaxis Prognosis: Guarded given multiple comorbidities. Rest of plan per hospitalist and other consultants. Thank you Dr. Reed for allowing me to participate in this patient's care. Further recommendations will depend on patient's clinical course. Please do not hesitate to contact me if you have any questions or concerns. This medical document was created using an electronic medical record system with [employer] system. Although this document has been carefully reviewed, there may still be some phonetic and typographical errors. These areas are purely typographical due to imperfections of the software programs, and do not reflect any compromise in the patient's medical care. Dietary Evaluation Review Comments: 1) Consider SORAIDA 1 pkt BID for wounds 2) Continue current plan of care Expected Outcomes/Goals: F/U in 3-5 days Plan discussed with: Patient, Other (JEANNINE Lopez) TORITO URBAN MD Oct 04, 2024 20:32
[2024-10-05] VITALS (21 sets, daily range): BP systolic 96–104; BP diastolic 40–58; PULSE 77–94; RESP 16–20; TEMP 97.2–98.9; O2SAT 94–100
[2024-10-05] MEDS ORDERED: VANCOMYCIN 1GM/250ML KIT 250 ML IV SCH (05:00)
[2024-10-05 06:37] LABS: Basophils # (auto) 0.1 10 ^3/uL (0-0.2); Eosinophils # (auto) 0.2 10 ^3/uL (0-0.8); Eosinophils % (auto) 1.6 % (0.0-7.0); Hemoglobin 8.3 g/dL (13.5-17.5); Lymphocytes # (auto) 0.7 10 ^3/uL (0.4-5.4); Monocytes # (auto) 1.1 10 ^3/uL (0-1.3); White Blood Cell 11.7 10^3/uL (4.4-10.8)
[2024-10-05 06:40] LABS: Basophils % (auto) 0.8 % (0.0-2.0); Hematocrit 24.9 % (41.0-53.0); Lymphocytes % (auto) 5.9 % (10.0-50.0); Mean Corpuscular Hemoglobin 30.7 pg (28.0-32.0); Mean Corpuscular Hgb Conc. 33.6 g/dL (32.0-36.0); Mean Corpuscular Volume 91.4 fL (80.0-100.0); Monocytes % (auto) 9.7 % (0.0-12.0); Neutrophils # (auto) 9.6 10 ^3/uL (1.6-8.6); Nucleated Red Blood Cells % 0.1 %; Platelet Count (auto) 642 10^3/uL (140-450); Red Blood Cells 2.72 10^6/uL (4.5-5.90); Red Cell Distribution Width 15.2 % (11.8-14.3)
--- NOTE | 2024-10-05 09:39 | DVHPN2 ---
Subjective Patient was states that he feels better. Reviewed: Care Plan, H&P, Labs Changes from previous H/P or p: No Changes Eyes: No Pain, No Vision change, No Conjunctivae inflammation, No Eyelid inflammation, No Other, No Redness ENT: No Ear pain, No Ear discharge, No Nose pain, No Nose discharge, No Nose congestion, No Mouth pain, No Mouth swelling, No Throat pain, No Throat swelling, No Other Cardiovascular: No Chest Pain, No Palpitations, No Orthopnea, No Paroxysmal Noc. Dyspnea, No Edema, No Lt Headedness, No Other Respiratory: No Cough, No Dry; Shortness of breath, SOB with excertion; No Wheezing, No Hemoptysis, No Pleuritic Pain, No Sputum; Other (SOB at rest) Gastrointestinal: Nausea; No Vomiting, No Abdominal Pain, No Diarrhea; C onstipation; No Melena, No Hematochezia; Other (Poor appetite) Genitourinary: No Dysuria, No Frequency, No Incontinence, No Hematuria, No Retention, No Other Musculoskeletal: No other, No neck pain, No shoulder pain, No arm pain, No back pain, No hand pain, No leg pain, No foot pain Skin: No Rash, No Lesions, No Jaundice, No Bruising, No Other Objective Vitals Vital Signs Date Time Temp Pulse Resp B/P (MAP) Pulse Ox O2 Delivery O2 Flow Rate FiO2 10/05/24 08:08 97.6 80 20 97/48 (64) 98 97.6 10/05/24 06:55 Nasal Cannula* 2 28 Intake/Output Intake and Output 10/05/24 07:00 Intake Total 532 ml Output Total 700 ml Balance -168 ml Intake Oral 532 ml Output Urine Total 700 ml # Voids 1 General Appearance: Alert, Oriented X3, Cooperative, mild distress HEENT: Atraumatic, PERRLA Lungs: Clear to auscultation Cardiovascular: Normal S1, Normal S2 Abdomen: Normal bowel sounds Genitourinary: No Apparent Abnormalities Musculoskeletal: Normal sensory function, Normal motor function Neuro: Normal speech, Cranial nerves 3-12 NL Skin: Dry, Intact Psych/Mental Status: Mental status NL, Mood NL Medications Current Medications Medications Dose Ordered Sig/Cathy Route Start Time Stop Time Status Last Admin Dose Admin Albuterol 2.5 mg Q4HPRN PRN NEB 09/10/24 06:30 09/22/24 02:04 2.5 MG Ipratropium [place] 0.5 mg Q4HPRN PRN NEB 09/10/24 06:30 09/22/24 02:04 0.5 MG Vancomycin HCl 0 ml @ 0 mls/hr UD IV 09/10/24 06:30 Cancel Ondansetron HCl 4 mg Q4HP PRN IV 09/10/24 06:30 Docusate Sodium 100 mg BIDPRN PRN PO 09/10/24 06:30 09/11/24 09:53 100 MG Acetaminophen 650 mg Q6HP PRN PO 09/10/24 06:30 09/30/24 00:01 650 MG Nitroglycerin 0.4 mg Q5MINP PRN SL 09/10/24 06:30 Enoxaparin Sodium 70 mg Q12HR SC 09/13/24 22:00 UNV Enteral Nutritional Formula 240 ml TIDWM PO 09/16/24 18:00 10/04/24 17:29 240 ML Nystatin 5 ml QID MT 09/17/24 18:00 10/04/24 20:20 5 ML Albuterol 2.5 mg Q4HWA NEB 09/17/24 18:00 10/05/24 06:50 2.5 MG Ipratropium [place] 0.5 mg Q4HWA NEB 09/17/24 18:00 10/05/24 06:50 0.5 MG Melatonin 10 mg QHSP PRN PO 09/20/24 15:15 09/29/24 22:45 10 MG Potassium Chloride 10 meq DAILY PO 09/23/24 10:00 10/02/24 11:51 10 MEQ Enalaprilat 1.25 mg Q6HP PRN IV 09/22/24 13:00 Apixaban 5 mg BID PO 09/23/24 22:00 10/04/24 20:20 5 MG Furosemide 40 mg DAILY IV 09/27/24 10:00 10/01/24 10:28 40 MG Vancomycin HCl 0 ml @ 0 mls/hr UD IV 09/29/24 23:15 Cancel Sodium Chloride 10 ml QSHIFT@10,22 IV 09/30/24 22:00 10/04/24 20:20 10 ML Acetaminophen 650 mg UD PO 10/01/24 16:15 Cancel Diphenhydramine HCl 25 mg UD IV 10/01/24 16:15 Cancel Morphine Sulfate 1 mg Q4HP PRN IV 10/01/24 23:15 10/03/24 05:16 1 MG Voriconazole 220 mg/Dextrose 272 ml @ 136 mls/hr Q12H IV 10/04/24 15:00 10/05/24 03:06 136 MLS/HR Acetaminophen/ Hydrocodone Bitart 1 tab Q4HPRN PRN PO 10/04/24 10:45 10/04/24 20:29 1 TAB Vancomycin HCl 250 ml @ 250 mls/hr Q18H IV 10/05/24 05:00 Cancel Trimethoprim/ Sulfamethoxazole 1 tab Q12HR PO 10/04/24 22:00 10/04/24 20:20 1 TAB Laboratory Results Laboratory Tests 10/04/24 04:49 10/05/24 05:57 Urinalysis Test 09/14/24 08:00 09/30/24 06:15 Urine Osmolality 405 mOsm/kg Urine Creatinine 40.31 mg/dL (30.0-125.0) Urine Protein/Creatinine Ratio 0.54 Urine Sodium 24 mmol/L (40-220) L Urine Total Protein 21.7 mg/dL (1-14) H Urine Color Yellow (Yellow) Urine Clarity Turbid (Clear) H Urine pH 7.0 (5.0-9.0) Urine Specific [place] 1.032 (1.001-1.035) Urine Protein 1+ (Negative) H Urine Ketones Negative (Negative) Urine Blood 1+ /uL (Negative) H Urine Nitrite Negative (Negative) Urine Bilirubin Negative (Negative) Urine Urobilinogen 12 mg/dL (Negative) H Urine Leukocyte Esterase Negative /uL (Negative) Urine RBC 30 /hpf (0 - 3) Urine WBC 9 /hpf (0 - 3) Urine Squamous Epithelial Cells Few /hpf (<5) Urine Bacteria None seen /hpf (None Seen) Urine Hyaline Casts Many /lpf (0 - 2) Urine Mucus Few (None Seen) Urine Glucose Normal mg/dL (Normal) Microbiology Microbiology Date/Time Source Procedure Growth Status 09/30/24 06:15 Voided Urine Urine Culture - Final Complete 09/29/24 10:55 Blood Blood Culture - Final NO GROWTH AFTER 5 DAYS OF INCUBATION. Complete 09/16/24 20:50 Sputum Gram Stain - Final Complete 09/16/24 20:50 Respiratory Culture - Final Presumptive Desirae albicans Complete 09/13/24 09:50 Nose MRSA Screen - Final Complete Labs and/or images reviewed: Labs reviewed by me, Image(s) reviewed by me Assessment/Plan Assessment/Plan Plan: -sepsis -pneumonia -necrotizing lymph node -bullous emphysema -acute hypoxic respiratory failure -nicotine dependence -atelectasis -hyponatremia -pulmonary mass, rule out CA -DVT to cephalic vein -Deep tissue injury to coccyx -cachexia Plan: Events: Patient more awake and following commands. Reports increased appetite. Denies having any dyspnea at this time. Currently being fed by [employer] with no signs of aspiration. Continue current plan of care with repeat labs in a.m.. -continue Eliquis -ID consultation : Recommendations reviewed -pulmonary consultation : Recommendations reviewed -continue current antimicrobial regimen -change to pureed diet with supplementation -bronchodilators -PUD, DVT prophylaxis -social service consultation to assist with discharge planning. Given patient's multiple comorbidities, please attempt to place this patient at an LTAC. Total time spent with patient discussing and formulating plan of care: 35 minutes. This medical document was created using an electronic medical record system with [employer] dictation system. Although this document has been carefully reviewed, there may still be some phonetic and typographical errors. These areas are purely typographical due to imperfections of the software programs, and do not reflect any compromise in the patient's medical care. Plan discussed with: Patient, Other (RN) Date of Service: Oct 05, 2024 Billing Provider: KYUNG KENDRICK NP Common Visit Codes: [id number] INP/OBS CARE(HIGH) KYUNG KENDRICK NP Oct 05, 2024 09:39
--- NOTE | 2024-10-05 21:03 | DVHPN2 ---
Progress Note - Dictate Date Seen: Oct 05, 2024 Medical Necessity Reason Pt with a Central, PICC or Fol: Yes The following are medically ne: Lara Catheter Reason for lara catheter: Strict I&O Subjective Patient seen and examined at bedside. Remains on supplemental oxygen Overnight events reviewed. vital signs Vital Sign Date Time Temp Pulse Resp B/P (MAP) Pulse Ox O2 Delivery O2 Flow Rate FiO2 10/05/24 19:40 Nasal Cannula* 1 24 10/05/24 19:06 77 16 100 10/05/24 17:00 98.0 97/40 (59) 98.0 Total Intake and Output 10/04/24 10/04/24 10/05/24 15:00 23:00 07:00 Intake Total 407 ml 125 ml Output Total 700 ml Balance 407 ml -575 ml medications Current Medications Medications Dose Ordered Sig/Cathy Route Start Time Stop Time Status Last Admin Dose Admin Albuterol 2.5 mg Q4HPRN PRN NEB 09/10/24 06:30 09/22/24 02:04 2.5 MG Ipratropium [place] 0.5 mg Q4HPRN PRN NEB 09/10/24 06:30 09/22/24 02:04 0.5 MG Vancomycin HCl 0 ml @ 0 mls/hr UD IV 09/10/24 06:30 Cancel Ondansetron HCl 4 mg Q4HP PRN IV 09/10/24 06:30 Docusate Sodium 100 mg BIDPRN PRN PO 09/10/24 06:30 09/11/24 09:53 100 MG Acetaminophen 650 mg Q6HP PRN PO 09/10/24 06:30 09/30/24 00:01 650 MG Nitroglycerin 0.4 mg Q5MINP PRN SL 09/10/24 06:30 Enoxaparin Sodium 70 mg Q12HR SC 09/13/24 22:00 UNV Enteral Nutritional Formula 240 ml TIDWM PO 09/16/24 18:00 10/05/24 18:12 240 ML Albuterol 2.5 mg Q4HWA NEB 09/17/24 18:00 10/05/24 18:58 2.5 MG Ipratropium [place] 0.5 mg Q4HWA NEB 09/17/24 18:00 10/05/24 18:58 0.5 MG Melatonin 10 mg QHSP PRN PO 09/20/24 15:15 09/29/24 22:45 10 MG Potassium Chloride 10 meq DAILY PO 09/23/24 10:00 10/05/24 10:34 10 MEQ Enalaprilat 1.25 mg Q6HP PRN IV 09/22/24 13:00 Apixaban 5 mg BID PO 09/23/24 22:00 10/05/24 10:34 5 MG Furosemide 40 mg DAILY IV 09/27/24 10:00 10/01/24 10:28 40 MG Vancomycin HCl 0 ml @ 0 mls/hr UD IV 09/29/24 23:15 Cancel Sodium Chloride 10 ml QSHIFT@10,22 IV 09/30/24 22:00 10/05/24 10:00 10 ML Acetaminophen 650 mg UD PO 10/01/24 16:15 Cancel Diphenhydramine HCl 25 mg UD IV 10/01/24 16:15 Cancel Morphine Sulfate 1 mg Q4HP PRN IV 10/01/24 23:15 10/03/24 05:16 1 MG Voriconazole 220 mg/Dextrose 272 ml @ 136 mls/hr Q12H IV 10/04/24 15:00 10/05/24 15:00 136 MLS/HR Acetaminophen/ Hydrocodone Bitart 1 tab Q4HPRN PRN PO 10/04/24 10:45 10/05/24 15:49 1 TAB Vancomycin HCl 250 ml @ 250 mls/hr Q18H IV 10/05/24 05:00 Cancel Trimethoprim/ Sulfamethoxazole 1 tab Q12HR PO 10/04/24 22:00 10/05/24 10:34 1 TAB objective Gen.: Patient lying in bed in no apparent distress. On supplemental oxygen. Head: Normocephalic, atraumatic. Eyes: EOMI/PERRLA. Ears: Normal hearing. Normal anatomy. Neck/trachea: Trachea midline, supple. Nose: Normal external anatomy. Mouth: Moist mucous membranes. Chest: Decreased air entry bilaterally. No wheezing or rhonchi. Positive crackles. Cardiovascular: Positive S1, positive S2. Regular rate and rhythm. Abdomen: Positive bowel sounds in all 4 quadrants. Soft, non-tender, non- distended. : Deferred. Rectal: Deferred. Skin: Warm, dry. Intact. Extremities: 2+ radial pulses bilaterally. No lower extremity edema. Neuro: Awake, alert, oriented x3. No gross motor or sensory deficits. Cranial nerves II through XII intact. Gait not assessed. laboratory and microbiology Laboratory Tests 10/05/24 05:57 10/04/24 04:49 Test 10/04/24 04:49 Range/Units Serum Glucose 77 74-106 mg/dL Assessment/Plan Impression: Acute hypoxic respiratory failure Pneumonia COPD Emphysema, paraseptal and centrilobular Fibroid atelectatic opacities in the right middle lobe, lingula and bilateral lower lobes. Calcified pleural plaques in the right upper lobe and posterior aspects of the lower lobes bilaterally Pleural effusions, Atelectasis Hyponatremia Events: Remains on supplemental O2 at 1 LPM NC. Taper O2 as tolerated Incentive spirometry Continue bronchodilators NTS PRN. Continue antibiotics/antifungal Monitor BP - SBP in 90s. Pain control Avoid oversedation Monitor wbc Monitor platelet count. Wound care Head of bed elevation Aspiration precautions Continue Eliquis BID for AFib. Ensure for nutritional support. PT/OT. Lara d/t urinary retention. HERSON resolved after Lara placement - HERSON likely due to urine retention. Disposition per hospitalist. Labs and imaging reviewed. Rest of plan as noted below. Plan: Supplemental oxygen Keep O2 saturation above 92% CT chest report and images reviewed. Emphysematous changes. Fibro atelectatic opacity in the right middle lobe, lingula and bilateral lower lobes. Calcified plaques in the right upper and bilateral lower lobes and posteriorly. Minimal pleural effusions and atelectasis. Antibiotics. Monitor WBC count. Blood cultures show no growth. Continue bronchodilators as needed. Pain control. Avoid over-sedation. Incentive spirometry. IV fluids at 60 mL an hour. Maintain euvolemia Monitor renal function. Monitor electrolytes. Supplement as necessary. Hyponatremia - Monitor sodium DVT prophylaxis Prognosis: Guarded given multiple comorbidities. Rest of plan per hospitalist and other consultants. Thank you Dr. Reed for allowing me to participate in this patient's care. Further recommendations will depend on patient's clinical course. Please do not hesitate to contact me if you have any questions or concerns. This medical document was created using an electronic medical record system with [employer] system. Although this document has been carefully reviewed, there may still be some phonetic and typographical errors. These areas are purely typographical due to imperfections of the software programs, and do not reflect any compromise in the patient's medical care. Dietary Evaluation Review Comments: 1) Consider SORAIDA 1 pkt BID for wounds 2) Continue current plan of care Expected Outcomes/Goals: F/U in 3-5 days Plan discussed with: Patient, Other (JEANNINE Aguilar) TORITO URBAN MD Oct 05, 2024 21:03
--- NOTE | 2024-10-05 23:02 | DVHPN2 ---
Consult Progress Note Date Seen: Oct 05, 2024 Subjective Patient reports: Feels better (breathing fine and without cough and clear lungs ) Objective vital signs Vital Sign Date Time Temp Pulse Resp B/P (MAP) Pulse Ox O2 Delivery O2 Flow Rate FiO2 10/05/24 22:13 82 16 100 10/05/24 22:06 Nasal Cannula* 1 10/05/24 21:00 98.9 104/48 (66) 98.9 Total Intake and Output 10/04/24 10/04/24 10/05/24 15:00 23:00 07:00 Intake Total 407 ml 125 ml Output Total 700 ml Balance 407 ml -575 ml medications Current Medications Medications Dose Ordered Sig/Cathy Route Start Time Stop Time Status Last Admin Dose Admin Albuterol 2.5 mg Q4HPRN PRN NEB 09/10/24 06:30 09/22/24 02:04 2.5 MG Ipratropium [place] 0.5 mg Q4HPRN PRN NEB 09/10/24 06:30 09/22/24 02:04 0.5 MG Vancomycin HCl 0 ml @ 0 mls/hr UD IV 09/10/24 06:30 Cancel Ondansetron HCl 4 mg Q4HP PRN IV 09/10/24 06:30 Docusate Sodium 100 mg BIDPRN PRN PO 09/10/24 06:30 09/11/24 09:53 100 MG Acetaminophen 650 mg Q6HP PRN PO 09/10/24 06:30 09/30/24 00:01 650 MG Nitroglycerin 0.4 mg Q5MINP PRN SL 09/10/24 06:30 Enoxaparin Sodium 70 mg Q12HR SC 09/13/24 22:00 UNV Enteral Nutritional Formula 240 ml TIDWM PO 09/16/24 18:00 10/05/24 18:12 240 ML Albuterol 2.5 mg Q4HWA NEB 09/17/24 18:00 10/05/24 22:06 2.5 MG Ipratropium [place] 0.5 mg Q4HWA NEB 09/17/24 18:00 10/05/24 22:05 0.5 MG Melatonin 10 mg QHSP PRN PO 09/20/24 15:15 09/29/24 22:45 10 MG Potassium Chloride 10 meq DAILY PO 09/23/24 10:00 10/05/24 10:34 10 MEQ Enalaprilat 1.25 mg Q6HP PRN IV 09/22/24 13:00 Apixaban 5 mg BID PO 09/23/24 22:00 10/05/24 20:54 5 MG Furosemide 40 mg DAILY IV 09/27/24 10:00 10/01/24 10:28 40 MG Vancomycin HCl 0 ml @ 0 mls/hr UD IV 09/29/24 23:15 Cancel Sodium Chloride 10 ml QSHIFT@10,22 IV 09/30/24 22:00 10/05/24 20:56 10 ML Acetaminophen 650 mg UD PO 10/01/24 16:15 Cancel Diphenhydramine HCl 25 mg UD IV 10/01/24 16:15 Cancel Morphine Sulfate 1 mg Q4HP PRN IV 10/01/24 23:15 10/03/24 05:16 1 MG Voriconazole 220 mg/Dextrose 272 ml @ 136 mls/hr Q12H IV 10/04/24 15:00 10/05/24 15:00 136 MLS/HR Acetaminophen/ Hydrocodone Bitart 1 tab Q4HPRN PRN PO 10/04/24 10:45 10/05/24 20:56 1 TAB Vancomycin HCl 250 ml @ 250 mls/hr Q18H IV 10/05/24 05:00 Cancel Trimethoprim/ Sulfamethoxazole 1 tab Q12HR PO 10/04/24 22:00 10/05/24 20:54 1 TAB Physical Exam: General: Generally weak, malnourished, a little confused, pale skin. Neck: Supple. No masses. HEENT: Forehead abrasion present. PERRL. Normal lids and conjunctiva. Moist mucous membranes. Oropharynx without lesions, exudates, or excessive erythema. Normal external nose and ears. Heart: Tachycardic. Regular rhythm. No murmur. No lower extremity edema. Lungs: Normal respiratory effort. Clear to auscultation bilaterally. No wheezes. No crackles. Abdomen: Soft. Non-tender. Non-distended. No masses or abdominal hernia. Bowel sounds generally weak. Musculoskeletal: Generally weak but able to move all limbs. No regional weakness. No digital cyanosis. Normal strength and tone in all four limbs. Skin: Pale skin. Warm and dry. Forehead abrasion. Stage 2 sacral ulcers; non- purulent, non-eroded. Neuro: Alert but slightly confused. No facial droop or slurred speech. Extra- ocular movements intact. Sensation intact to soft touch in all four limbs. Psych: Appropriate mood. Full affect. Oriented to person, place, and situation. laboratory and microbiology Laboratory Tests 10/05/24 05:57 10/04/24 04:49 Test 10/04/24 04:49 Range/Units Serum Glucose 77 74-106 mg/dL Problem List/Assessment/Plan Problems(with codes): (1) Generalized weakness (2) Multifocal pneumonia (3) Hyponatremia (4) Hypertension (5) Leukocytosis, unspecified (6) Status asthmaticus (7) Pneumonia (8) COPD (chronic obstructive pulmonary disease) (9) SHORTNESS OF BREATH (10) ASTHMA, CHRONIC OBSTRUCTIVE W ASTHMATICUS Problem List/Assessment/Plan ID Problem List: -- Generalized weakness -- Fall with head injury -- Multifocal pneumonia -- Leukocytosis -- COPD exacerbation -- Hyponatremia -- Stage 2 sacral ulcers -- Tobacco use disorder Assessment This is a 79 y.o. male with a past medical history of asthma, COPD, and depression, who presents with generalized weakness and a fall resulting in a forehead abrasion. He has been experiencing loss of appetite, no bowel movements, and shortness of breath. Laboratory findings show leukocytosis with a WBC count of 35.6??10?/L, thrombocytosis with platelets at 539??10?/L, hyponatremia with sodium at 120?mmol/L, BUN of 22?mg/dL, creatinine of 0.6?mg/dL, glucose of 102?mg/dL, lactic acid of 1.5?mmol/L, and hemoglobin of 13.7?g/dL. CT head showed no acute abnormality. Chest CT revealed thyromegaly and extensive alveolar and parenchymal infiltrates in both lungs, seen in the right middle lobe, lingula, and both lower lobes. He was started empirically on vancomycin and ceftriaxone; azithromycin was later added. The patient has stage 2 sacral ulcers, non-purulent and non-eroded. 09/13: On imaging his doppler lower extemity ultrasound shows a nonocclusive thrombo scene in the proximal left superficial fomoral vein. CT of lungs which showed no pulmonary embolism. diffuse abnormal tissue density in posterior media steinum extened from the upper thorax to diaphragmatic hiatus with small air bubbles thats increased in size compared to last exam, which could represent nectrotic adenopathy abscess or esophageal injury or rupture. component on the left at the diaphragmatic hiatus is recommended , smoking related lung disease , patchy eclecticism consolidation. 09/14: white count remains elevated at 33. Dr choi from oncology saw patinet and suggent proliferative disorder is a possiblility but will asses after antibiotics, as well as consider a biopsy after a few weeks. MRSA nares came negative. 09/15: white count is slowing coming down and a backorder of levofloxacin 09/16: white count is slowly downtrending now at 28, 2 liters nasal canula 09/17: Patient was able to produce and induced sputum sample and so far results are with no growth 09/21: White count continues to downtrend now at 13 09/22: white count is 17.2 , chest xray shows stable mass like opacities in both lungs , had a biopsy done of a left pair of veterebral mass , 5 core biopsies were obtained 09/23: white count is elevated at 18 , chest x-ray showed stable mass capacities throughout both lungs, patient is negative for HIV 09/24: Chest xray shows plural classifications and airspace opacities appear to be similar to prior examination. stable blunting of constophrenic agles , appears overall stable but on more oxygen then what he came in with . getting bicarbonate greater than 40 09/25: white count is 10.3 , significant improvement fungal serolgies and quant tb is negative 09/30: white count is 14.9 , thrombocytosis is 872 , concerned that patient is still having an undiagnosed infection that is not being treated adequately. Fungal serologies have come back negative , Tp came back negative and patient is tolerating antibiotic treatments 10/01: nonspecific inflammation on lymph node biopsy 10/04: Tolerating voriconazole 10/05: responding to voriconazole Plan: - recommend 2 weeks of voriconazole , can be transitioned to oral at the same dose he has currently - reccomend continuing oral bactrum 1 double strength tab 2x a day for 2 weeks - repeat sputum culture -- Implement wound care for stage 2 sacral ulcers. -- Monitor vital signs and oxygen saturation. Isolation Precautions: Standard Plan discussed with: Other Dietary Evaluation Review Comments: 1) Consider SORAIDA 1 pkt BID for wounds 2) Continue current plan of care Expected Outcomes/Goals: F/U in 3-5 days Interpretation of weight loss: up to 20% in 1 year SHELBY OQUENDO MD Oct 05, 2024 23:02
[2024-10-06] VITALS (16 sets, daily range): BP systolic 89–103; BP diastolic 42–51; PULSE 67–88; RESP 16–22; TEMP 97.9–98.7; O2SAT 93–100
[2024-10-06 09:00] LABS: Eosinophils # (auto) 0.1 10 ^3/uL (0-0.8); Hemoglobin 8.5 g/dL (13.5-17.5)
[2024-10-06 09:03] LABS: Basophils # (auto) 0.1 10 ^3/uL (0-0.2); Basophils % (auto) 0.6 % (0.0-2.0); Eosinophils % (auto) 1.4 % (0.0-7.0); Hematocrit 25.5 % (41.0-53.0); Lymphocytes # (auto) 0.8 10 ^3/uL (0.4-5.4); Lymphocytes % (auto) 7.4 % (10.0-50.0); Mean Corpuscular Hemoglobin 30.5 pg (28.0-32.0); Mean Corpuscular Hgb Conc. 33.2 g/dL (32.0-36.0); Mean Corpuscular Volume 91.9 fL (80.0-100.0); Monocytes # (auto) 1.1 10 ^3/uL (0-1.3); Monocytes % (auto) 10.5 % (0.0-12.0); Neutrophils # (auto) 8.6 10 ^3/uL (1.6-8.6); Neutrophils % (auto) 80.1 % (37.0-80.0); Platelet Count (auto) 589 10^3/uL (140-450); Red Blood Cells 2.78 10^6/uL (4.5-5.90); White Blood Cell 10.7 10^3/uL (4.4-10.8)
[2024-10-06 09:26] LABS: Chloride 98 mmol/L (98-107); Potassium 4.8 mmol/L (3.5-5.1)
[2024-10-06 09:27] LABS: Anion Gap 2 (5-15); Calcium 8.9 mg/dL (8.7-10.4)
[2024-10-06 09:28] LABS: Carbon Dioxide 32 mmol/L (20-31); Sodium 132 mmol/L (136-145)
[2024-10-06 09:32] LABS: BUN/Creatinine Ratio 29.3 (10.0-20.0); Blood Urea Nitrogen 12 mg/dL (9-23); Glucose 99 mg/dL (74-106)
--- NOTE | 2024-10-06 11:26 | DVHPN2 ---
Subjective Patient was states that he feels better. Reviewed: Care Plan, H&P, Labs Changes from previous H/P or p: No Changes Eyes: No Pain, No Vision change, No Conjunctivae inflammation, No Eyelid inflammation, No Other, No Redness ENT: No Ear pain, No Ear discharge, No Nose pain, No Nose discharge, No Nose congestion, No Mouth pain, No Mouth swelling, No Throat pain, No Throat swelling, No Other Cardiovascular: No Chest Pain, No Palpitations, No Orthopnea, No Paroxysmal Noc. Dyspnea, No Edema, No Lt Headedness, No Other Respiratory: No Cough, No Dry; Shortness of breath, SOB with excertion; No Wheezing, No Hemoptysis, No Pleuritic Pain, No Sputum; Other (SOB at rest) Gastrointestinal: Nausea; No Vomiting, No Abdominal Pain, No Diarrhea; C onstipation; No Melena, No Hematochezia; Other (Poor appetite) Genitourinary: No Dysuria, No Frequency, No Incontinence, No Hematuria, No Retention, No Other Musculoskeletal: No other, No neck pain, No shoulder pain, No arm pain, No back pain, No hand pain, No leg pain, No foot pain Skin: No Rash, No Lesions, No Jaundice, No Bruising, No Other Objective Vitals Vital Signs Date Time Temp Pulse Resp B/P (MAP) Pulse Ox O2 Delivery O2 Flow Rate FiO2 10/06/24 10:22 81 16 100 10/06/24 10:14 Nasal Cannula* 1 24 10/06/24 09:22 93/38 10/06/24 09:00 98.0 98.0 Intake/Output Intake and Output 10/06/24 07:00 Intake Total 1492 ml Output Total 800 ml Balance 692 ml Intake Oral 1220 ml IV Total 272 ml Output Urine Total 800 ml General Appearance: Alert, Oriented X3, Cooperative, mild distress HEENT: Atraumatic, PERRLA Lungs: Clear to auscultation Cardiovascular: Normal S1, Normal S2 Abdomen: Normal bowel sounds Genitourinary: No Apparent Abnormalities Musculoskeletal: Normal sensory function, Normal motor function Neuro: Normal speech, Cranial nerves 3-12 NL Skin: Dry, Intact Psych/Mental Status: Mental status NL, Mood NL Medications Current Medications Medications Dose Ordered Sig/Cathy Route Start Time Stop Time Status Last Admin Dose Admin Albuterol 2.5 mg Q4HPRN PRN NEB 09/10/24 06:30 09/22/24 02:04 2.5 MG Ipratropium [place] 0.5 mg Q4HPRN PRN NEB 09/10/24 06:30 09/22/24 02:04 0.5 MG Vancomycin HCl 0 ml @ 0 mls/hr UD IV 09/10/24 06:30 Cancel Ondansetron HCl 4 mg Q4HP PRN IV 09/10/24 06:30 Docusate Sodium 100 mg BIDPRN PRN PO 09/10/24 06:30 09/11/24 09:53 100 MG Acetaminophen 650 mg Q6HP PRN PO 09/10/24 06:30 09/30/24 00:01 650 MG Nitroglycerin 0.4 mg Q5MINP PRN SL 09/10/24 06:30 Enoxaparin Sodium 70 mg Q12HR SC 09/13/24 22:00 UNV Enteral Nutritional Formula 240 ml TIDWM PO 09/16/24 18:00 10/06/24 08:00 240 ML Albuterol 2.5 mg Q4HWA NEB 09/17/24 18:00 10/06/24 10:14 2.5 MG Ipratropium [place] 0.5 mg Q4HWA NEB 09/17/24 18:00 10/06/24 10:14 0.5 MG Melatonin 10 mg QHSP PRN PO 09/20/24 15:15 09/29/24 22:45 10 MG Potassium Chloride 10 meq DAILY PO 09/23/24 10:00 10/06/24 09:24 10 MEQ Enalaprilat 1.25 mg Q6HP PRN IV 09/22/24 13:00 Apixaban 5 mg BID PO 09/23/24 22:00 10/06/24 09:23 5 MG Furosemide 40 mg DAILY IV 09/27/24 10:00 10/01/24 10:28 40 MG Vancomycin HCl 0 ml @ 0 mls/hr UD IV 09/29/24 23:15 Cancel Sodium Chloride 10 ml QSHIFT@10,22 IV 09/30/24 22:00 10/06/24 09:24 10 ML Acetaminophen 650 mg UD PO 10/01/24 16:15 Cancel Diphenhydramine HCl 25 mg UD IV 10/01/24 16:15 Cancel Morphine Sulfate 1 mg Q4HP PRN IV 10/01/24 23:15 10/03/24 05:16 1 MG Voriconazole 220 mg/Dextrose 272 ml @ 136 mls/hr Q12H IV 10/04/24 15:00 10/06/24 03:43 136 MLS/HR Acetaminophen/ Hydrocodone Bitart 1 tab Q4HPRN PRN PO 10/04/24 10:45 10/06/24 09:23 1 TAB Vancomycin HCl 250 ml @ 250 mls/hr Q18H IV 10/05/24 05:00 Cancel Trimethoprim/ Sulfamethoxazole 1 tab Q12HR PO 10/04/24 22:00 10/06/24 09:23 1 TAB Laboratory Results Laboratory Tests 10/06/24 08:29 Chemistry Test 10/06/24 08:29 Calcium Level 8.9 mg/dL (8.7-10.4) Urinalysis Test 09/14/24 08:00 09/30/24 06:15 Urine Osmolality 405 mOsm/kg Urine Creatinine 40.31 mg/dL (30.0-125.0) Urine Protein/Creatinine Ratio 0.54 Urine Sodium 24 mmol/L (40-220) L Urine Total Protein 21.7 mg/dL (1-14) H Urine Color Yellow (Yellow) Urine Clarity Turbid (Clear) H Urine pH 7.0 (5.0-9.0) Urine Specific [place] 1.032 (1.001-1.035) Urine Protein 1+ (Negative) H Urine Ketones Negative (Negative) Urine Blood 1+ /uL (Negative) H Urine Nitrite Negative (Negative) Urine Bilirubin Negative (Negative) Urine Urobilinogen 12 mg/dL (Negative) H Urine Leukocyte Esterase Negative /uL (Negative) Urine RBC 30 /hpf (0 - 3) Urine WBC 9 /hpf (0 - 3) Urine Squamous Epithelial Cells Few /hpf (<5) Urine Bacteria None seen /hpf (None Seen) Urine Hyaline Casts Many /lpf (0 - 2) Urine Mucus Few (None Seen) Urine Glucose Normal mg/dL (Normal) Microbiology Microbiology Date/Time Source Procedure Growth Status 09/30/24 06:15 Voided Urine Urine Culture - Final Complete 09/29/24 10:55 Blood Blood Culture - Final NO GROWTH AFTER 5 DAYS OF INCUBATION. Complete 09/16/24 20:50 Sputum Gram Stain - Final Complete 09/16/24 20:50 Respiratory Culture - Final Presumptive Desirae albicans Complete 09/13/24 09:50 Nose MRSA Screen - Final Complete Labs and/or images reviewed: Labs reviewed by me, Image(s) reviewed by me Assessment/Plan Assessment/Plan Plan: -sepsis -pneumonia -necrotizing lymph node -bullous emphysema -acute hypoxic respiratory failure -nicotine dependence -atelectasis -hyponatremia -pulmonary mass, rule out CA -DVT to cephalic vein -Deep tissue injury to coccyx -cachexia Plan: Events: Patient clinically improving. More alert and oriented. Reports that he was able to stand on the side of the bed yesterday. -continue Eliquis -ID consultation : Recommendations reviewed. Patient now on p.o. VFend and Bactrim. -pulmonary consultation : Recommendations reviewed -continue current antimicrobial regimen -change to pureed diet with supplementation -bronchodilators -PUD, DVT prophylaxis -discussed case with social media campaign manager. Discharge planning we will be re- evaluated for new needs. Total time spent with patient discussing and formulating plan of care: 35 minutes. This medical document was created using an electronic medical record system with [employer] dictation system. Although this document has been carefully reviewed, there may still be some phonetic and typographical errors. These areas are purely typographical due to imperfections of the software programs, and do not reflect any compromise in the patient's medical care. Plan discussed with: Patient, Other (RN) My Orders Orders - KYUNG KENDRICK NP Procedure Category Date Status Time Oob To Chair YOSELYN 10/06/24 In Process 11:07 Furosemide Tablet PHA 10/07/24 Transmitted (Lasix Tablet) 10:00 Date of Service: Oct 06, 2024 Billing Provider: KYUNG KENDRICK NP Common Visit Codes: [id number] INP/OBS CARE(HIGH) KYUNG KENDRICK NP Oct 06, 2024 11:26
--- NOTE | 2024-10-06 23:10 | DVHPN2 ---
Progress Note - Dictate Date Seen: Oct 06, 2024 Medical Necessity Reason Pt with a Central, PICC or Fol: Yes The following are medically ne: Lara Catheter Reason for lara catheter: Strict I&O Subjective Patient seen and examined at bedside. Remains on supplemental oxygen Overnight events reviewed. vital signs Vital Sign Date Time Temp Pulse Resp B/P (MAP) Pulse Ox O2 Delivery O2 Flow Rate FiO2 10/06/24 21:48 83 16 100 10/06/24 21:42 Room Air 0.0 10/06/24 21:42 21 10/06/24 21:01 102/57 10/06/24 21:00 98.7 98.7 Total Intake and Output 10/05/24 10/05/24 10/06/24 15:00 23:00 07:00 Intake Total 992 ml 500 ml Output Total 300 ml 500 ml Balance 692 ml 0 ml medications Current Medications Medications Dose Ordered Sig/Cathy Route Start Time Stop Time Status Last Admin Dose Admin Albuterol 2.5 mg Q4HPRN PRN NEB 09/10/24 06:30 09/22/24 02:04 2.5 MG Ipratropium [place] 0.5 mg Q4HPRN PRN NEB 09/10/24 06:30 09/22/24 02:04 0.5 MG Vancomycin HCl 0 ml @ 0 mls/hr UD IV 09/10/24 06:30 Cancel Ondansetron HCl 4 mg Q4HP PRN IV 09/10/24 06:30 Docusate Sodium 100 mg BIDPRN PRN PO 09/10/24 06:30 09/11/24 09:53 100 MG Acetaminophen 650 mg Q6HP PRN PO 09/10/24 06:30 09/30/24 00:01 650 MG Nitroglycerin 0.4 mg Q5MINP PRN SL 09/10/24 06:30 Enoxaparin Sodium 70 mg Q12HR SC 09/13/24 22:00 UNV Enteral Nutritional Formula 240 ml TIDWM PO 09/16/24 18:00 10/06/24 18:15 240 ML Albuterol 2.5 mg Q4HWA NEB 09/17/24 18:00 10/06/24 21:42 2.5 MG Ipratropium [place] 0.5 mg Q4HWA NEB 09/17/24 18:00 10/06/24 21:41 0.5 MG Melatonin 10 mg QHSP PRN PO 09/20/24 15:15 10/06/24 20:30 10 MG Potassium Chloride 10 meq DAILY PO 09/23/24 10:00 10/06/24 09:24 10 MEQ Enalaprilat 1.25 mg Q6HP PRN IV 09/22/24 13:00 Apixaban 5 mg BID PO 09/23/24 22:00 10/06/24 22:18 5 MG Vancomycin HCl 0 ml @ 0 mls/hr UD IV 09/29/24 23:15 Cancel Sodium Chloride 10 ml QSHIFT@10,22 IV 09/30/24 22:00 10/06/24 22:18 10 ML Acetaminophen 650 mg UD PO 10/01/24 16:15 Cancel Diphenhydramine HCl 25 mg UD IV 10/01/24 16:15 Cancel Morphine Sulfate 1 mg Q4HP PRN IV 10/01/24 23:15 10/06/24 20:31 1 MG Voriconazole 220 mg/Dextrose 272 ml @ 136 mls/hr Q12H IV 10/04/24 15:00 10/06/24 14:32 136 MLS/HR Acetaminophen/ Hydrocodone Bitart 1 tab Q4HPRN PRN PO 10/04/24 10:45 10/06/24 09:23 1 TAB Vancomycin HCl 250 ml @ 250 mls/hr Q18H IV 10/05/24 05:00 Cancel Trimethoprim/ Sulfamethoxazole 1 tab Q12HR PO 10/04/24 22:00 10/06/24 22:18 1 TAB Furosemide 20 mg DAILY PO 10/07/24 10:00 objective Gen.: Patient lying in bed in no apparent distress. On supplemental oxygen. Head: Normocephalic, atraumatic. Eyes: EOMI/PERRLA. Ears: Normal hearing. Normal anatomy. Neck/trachea: Trachea midline, supple. Nose: Normal external anatomy. Mouth: Moist mucous membranes. Chest: Decreased air entry bilaterally. No wheezing or rhonchi. Positive crackles. Cardiovascular: Positive S1, positive S2. Regular rate and rhythm. Abdomen: Positive bowel sounds in all 4 quadrants. Soft, non-tender, non- distended. : Deferred. Rectal: Deferred. Skin: Warm, dry. Intact. Extremities: 2+ radial pulses bilaterally. No lower extremity edema. Neuro: Awake, alert, oriented x3. No gross motor or sensory deficits. Cranial nerves II through XII intact. Gait not assessed. laboratory and microbiology Laboratory Tests 10/06/24 08:29 Test 10/06/24 08:29 Range/Units Serum Glucose 99 74-106 mg/dL Assessment/Plan Impression: Acute hypoxic respiratory failure Pneumonia COPD Emphysema, paraseptal and centrilobular Fibroid atelectatic opacities in the right middle lobe, lingula and bilateral lower lobes. Calcified pleural plaques in the right upper lobe and posterior aspects of the lower lobes bilaterally Pleural effusions, Atelectasis Hyponatremia Events: Remains on supplemental O2 at 1 LPM NC. Taper O2 as tolerated Incentive spirometry Continue bronchodilators NTS PRN. Continue antibiotics/antifungal Monitor BP Pain control Avoid oversedation Monitor wbc Monitor platelet count. Wound care Head of bed elevation Aspiration precautions Continue Eliquis BID for AFib. Puree diet. Continue PT. Lara d/t urinary retention. HERSON resolved after Lara placement - HERSON likely due to urine retention. Awaiting placement Disposition per hospitalist. Labs and imaging reviewed. Rest of plan as noted below. Plan: Supplemental oxygen Keep O2 saturation above 92% CT chest report and images reviewed. Emphysematous changes. Fibro atelectatic opacity in the right middle lobe, lingula and bilateral lower lobes. Calcified plaques in the right upper and bilateral lower lobes and posteriorly. Minimal pleural effusions and atelectasis. Antibiotics. Monitor WBC count. Blood cultures show no growth. Continue bronchodilators as needed. Pain control. Avoid over-sedation. Incentive spirometry. IV fluids at 60 mL an hour. Maintain euvolemia Monitor renal function. Monitor electrolytes. Supplement as necessary. Hyponatremia - Monitor sodium DVT prophylaxis Prognosis: Guarded given multiple comorbidities. Rest of plan per hospitalist and other consultants. Thank you Dr. Reed for allowing me to participate in this patient's care. Further recommendations will depend on patient's clinical course. Please do not hesitate to contact me if you have any questions or concerns. This medical document was created using an electronic medical record system with [employer] system. Although this document has been carefully reviewed, there may still be some phonetic and typographical errors. These areas are purely typographical due to imperfections of the software programs, and do not reflect any compromise in the patient's medical care. Dietary Evaluation Review Comments: 1) Consider SORAIDA 1 pkt BID for wounds 2) Continue current plan of care Expected Outcomes/Goals: F/U in 3-5 days Interpretation of weight loss: up to 20% in 1 year Plan discussed with: Patient, Other (JEANNINE Benitez) TORITO URBAN MD Oct 06, 2024 23:10
[2024-10-07] VITALS (18 sets, daily range): BP systolic 94–127; BP diastolic 45–54; PULSE 62–92; RESP 17–19; TEMP 98–98.9; O2SAT 91–100
[2024-10-07 07:01] LABS: Basophils # (auto) 0.1 10 ^3/uL (0-0.2); Basophils % (auto) 0.6 % (0.0-2.0); Eosinophils # (auto) 0.1 10 ^3/uL (0-0.8); Hematocrit 27.1 % (41.0-53.0); Hemoglobin 8.9 g/dL (13.5-17.5); Lymphocytes # (auto) 0.8 10 ^3/uL (0.4-5.4); Lymphocytes % (auto) 7.5 % (10.0-50.0); Mean Corpuscular Hgb Conc. 32.9 g/dL (32.0-36.0); Mean Corpuscular Volume 91.2 fL (80.0-100.0); Monocytes # (auto) 1.2 10 ^3/uL (0-1.3); Monocytes % (auto) 11.3 % (0.0-12.0); Neutrophils # (auto) 8.6 10 ^3/uL (1.6-8.6); Neutrophils % (auto) 79.6 % (37.0-80.0); Nucleated Red Blood Cells % 0.1 %; Platelet Count (auto) 558 10^3/uL (140-450); Red Blood Cells 2.97 10^6/uL (4.5-5.90); Red Cell Distribution Width 15.1 % (11.8-14.3); White Blood Cell 10.8 10^3/uL (4.4-10.8)
[2024-10-07] MEDS: FUROSEMIDE 20 MG TAB PO SCH (08:42)
--- NOTE | 2024-10-07 10:43 | DVHPN2 ---
Subjective Patient was states that he feels better. Reviewed: Care Plan, H&P, Labs Changes from previous H/P or p: No Changes Eyes: No Pain, No Vision change, No Conjunctivae inflammation, No Eyelid inflammation, No Other, No Redness ENT: No Ear pain, No Ear discharge, No Nose pain, No Nose discharge, No Nose congestion, No Mouth pain, No Mouth swelling, No Throat pain, No Throat swelling, No Other Cardiovascular: No Chest Pain, No Palpitations, No Orthopnea, No Paroxysmal Noc. Dyspnea, No Edema, No Lt Headedness, No Other Respiratory: No Cough, No Dry; Shortness of breath, SOB with excertion; No Wheezing, No Hemoptysis, No Pleuritic Pain, No Sputum; Other (SOB at rest) Gastrointestinal: Nausea; No Vomiting, No Abdominal Pain, No Diarrhea; C onstipation; No Melena, No Hematochezia; Other (Poor appetite) Genitourinary: No Dysuria, No Frequency, No Incontinence, No Hematuria, No Retention, No Other Musculoskeletal: No other, No neck pain, No shoulder pain, No arm pain, No back pain, No hand pain, No leg pain, No foot pain Skin: No Rash, No Lesions, No Jaundice, No Bruising, No Other Objective Vitals Vital Signs Date Time Temp Pulse Resp B/P (MAP) Pulse Ox O2 Delivery O2 Flow Rate FiO2 10/07/24 09:34 98.4 82 19 106/45 (65) 96 98.4 10/07/24 08:10 Nasal Cannula* 1 24 Intake/Output Intake and Output 10/07/24 07:00 Intake Total 1372 ml Output Total 1250 ml Balance 122 ml Intake Oral 1100 ml IV Total 272 ml Output Urine Total 1250 ml General Appearance: Alert, Oriented X3, Cooperative, mild distress HEENT: Atraumatic, PERRLA Lungs: Clear to auscultation, Other (Decreased breath sounds at bases. Nasal cannula at 1 L per) Cardiovascular: Normal S1, Normal S2 Abdomen: Normal bowel sounds Genitourinary: No Apparent Abnormalities Musculoskeletal: Normal sensory function, Normal motor function Neuro: Normal speech, Cranial nerves 3-12 NL Skin: Wounds (See nurse notes and pictures) Psych/Mental Status: Mental status NL, Mood NL Medications Current Medications Medications Dose Ordered Sig/Cathy Route Start Time Stop Time Status Last Admin Dose Admin Albuterol 2.5 mg Q4HPRN PRN NEB 09/10/24 06:30 09/22/24 02:04 2.5 MG Ipratropium [place] 0.5 mg Q4HPRN PRN NEB 09/10/24 06:30 09/22/24 02:04 0.5 MG Vancomycin HCl 0 ml @ 0 mls/hr UD IV 09/10/24 06:30 Cancel Ondansetron HCl 4 mg Q4HP PRN IV 09/10/24 06:30 Docusate Sodium 100 mg BIDPRN PRN PO 09/10/24 06:30 09/11/24 09:53 100 MG Acetaminophen 650 mg Q6HP PRN PO 09/10/24 06:30 09/30/24 00:01 650 MG Nitroglycerin 0.4 mg Q5MINP PRN SL 09/10/24 06:30 Enoxaparin Sodium 70 mg Q12HR SC 09/13/24 22:00 UNV Enteral Nutritional Formula 240 ml TIDWM PO 09/16/24 18:00 10/07/24 08:00 240 ML Albuterol 2.5 mg Q4HWA NEB 09/17/24 18:00 10/07/24 07:49 2.5 MG Ipratropium [place] 0.5 mg Q4HWA NEB 09/17/24 18:00 10/07/24 07:49 0.5 MG Melatonin 10 mg QHSP PRN PO 09/20/24 15:15 10/06/24 20:30 10 MG Potassium Chloride 10 meq DAILY PO 09/23/24 10:00 10/07/24 08:41 10 MEQ Enalaprilat 1.25 mg Q6HP PRN IV 09/22/24 13:00 Apixaban 5 mg BID PO 09/23/24 22:00 10/07/24 08:41 5 MG Vancomycin HCl 0 ml @ 0 mls/hr UD IV 09/29/24 23:15 Cancel Sodium Chloride 10 ml QSHIFT@10,22 IV 09/30/24 22:00 10/07/24 08:44 10 ML Acetaminophen 650 mg UD PO 10/01/24 16:15 Cancel Diphenhydramine HCl 25 mg UD IV 10/01/24 16:15 Cancel Morphine Sulfate 1 mg Q4HP PRN IV 10/01/24 23:15 10/07/24 00:53 1 MG Voriconazole 220 mg/Dextrose 272 ml @ 136 mls/hr Q12H IV 10/04/24 15:00 10/07/24 02:31 136 MLS/HR Acetaminophen/ Hydrocodone Bitart 1 tab Q4HPRN PRN PO 10/04/24 10:45 10/07/24 02:39 1 TAB Vancomycin HCl 250 ml @ 250 mls/hr Q18H IV 10/05/24 05:00 Cancel Trimethoprim/ Sulfamethoxazole 1 tab Q12HR PO 10/04/24 22:00 10/07/24 08:41 1 TAB Furosemide 20 mg DAILY PO 10/07/24 10:00 10/07/24 08:42 20 MG Laboratory Results Laboratory Tests 10/06/24 08:29 10/07/24 05:56 Urinalysis Test 09/14/24 08:00 09/30/24 06:15 Urine Osmolality 405 mOsm/kg Urine Creatinine 40.31 mg/dL (30.0-125.0) Urine Protein/Creatinine Ratio 0.54 Urine Sodium 24 mmol/L (40-220) L Urine Total Protein 21.7 mg/dL (1-14) H Urine Color Yellow (Yellow) Urine Clarity Turbid (Clear) H Urine pH 7.0 (5.0-9.0) Urine Specific [place] 1.032 (1.001-1.035) Urine Protein 1+ (Negative) H Urine Ketones Negative (Negative) Urine Blood 1+ /uL (Negative) H Urine Nitrite Negative (Negative) Urine Bilirubin Negative (Negative) Urine Urobilinogen 12 mg/dL (Negative) H Urine Leukocyte Esterase Negative /uL (Negative) Urine RBC 30 /hpf (0 - 3) Urine WBC 9 /hpf (0 - 3) Urine Squamous Epithelial Cells Few /hpf (<5) Urine Bacteria None seen /hpf (None Seen) Urine Hyaline Casts Many /lpf (0 - 2) Urine Mucus Few (None Seen) Urine Glucose Normal mg/dL (Normal) Microbiology Microbiology Date/Time Source Procedure Growth Status 09/30/24 06:15 Voided Urine Urine Culture - Final Complete 09/29/24 10:55 Blood Blood Culture - Final NO GROWTH AFTER 5 DAYS OF INCUBATION. Complete 09/16/24 20:50 Sputum Gram Stain - Final Complete 09/16/24 20:50 Respiratory Culture - Final Presumptive Desirae albicans Complete 09/13/24 09:50 Nose MRSA Screen - Final Complete Labs and/or images reviewed: Labs reviewed by me, Image(s) reviewed by me Assessment/Plan Assessment/Plan Plan: -sepsis -pneumonia -necrotizing lymph node -bullous emphysema -acute hypoxic respiratory failure -nicotine dependence -atelectasis -hyponatremia -pulmonary mass, rule out CA -DVT to cephalic vein -Deep tissue injury to coccyx -cachexia Plan: Events: Patient clinically improving. Patient still not ambulating. Hemodynamically stable. -continue Eliquis -ID consultation : Recommendations reviewed. Patient now on p.o. VFend and Bactrim. -pulmonary consultation : Recommendations reviewed -bronchodilators -PUD, DVT prophylaxis -discussed case with oncology social worker. Please assist with establishing discharge plan given his needs post hospitalization. Total time spent with patient discussing and formulating plan of care: 35 minutes. This medical document was created using an electronic medical record system with [employer] dictation system. Although this document has been carefully reviewed, there may still be some phonetic and typographical errors. These areas are purely typographical due to imperfections of the software programs, and do not reflect any compromise in the patient's medical care. Plan discussed with: Patient, Other (RN) My Orders Orders - KYUNG KENDRICK NP Procedure Category Date Status Time Oob To Chair YOSELYN 10/06/24 In Process 11:07 Furosemide Tablet PHA 10/07/24 In Process (Lasix Tablet) 10:00 Date of Service: Oct 07, 2024 Billing Provider: KYUNG KENDRICK NP Common Visit Codes: [id number] INP/OBS CARE(HIGH) KYUNG KENDRICK NP Oct 07, 2024 10:43
--- NOTE | 2024-10-07 13:41 | DVHPN2 ---
Consult Progress Note Date Seen: Oct 06, 2024 Subjective Patient reports: Other (now on room air and is able to get up and move around a little bit ) Objective vital signs Vital Sign Date Time Temp Pulse Resp B/P (MAP) Pulse Ox O2 Delivery O2 Flow Rate FiO2 10/07/24 13:31 98.6 92 19 127/50 (75) 94 98.6 10/07/24 10:55 Nasal Cannula* 1 24 Total Intake and Output 10/06/24 10/06/24 10/07/24 15:00 23:00 07:00 Intake Total 500 ml 872 ml Output Total 550 ml 700 ml Balance -50 ml 172 ml medications Current Medications Medications Dose Ordered Sig/Cathy Route Start Time Stop Time Status Last Admin Dose Admin Albuterol 2.5 mg Q4HPRN PRN NEB 09/10/24 06:30 09/22/24 02:04 2.5 MG Ipratropium [place] 0.5 mg Q4HPRN PRN NEB 09/10/24 06:30 09/22/24 02:04 0.5 MG Vancomycin HCl 0 ml @ 0 mls/hr UD IV 09/10/24 06:30 Cancel Ondansetron HCl 4 mg Q4HP PRN IV 09/10/24 06:30 Docusate Sodium 100 mg BIDPRN PRN PO 09/10/24 06:30 09/11/24 09:53 100 MG Acetaminophen 650 mg Q6HP PRN PO 09/10/24 06:30 09/30/24 00:01 650 MG Nitroglycerin 0.4 mg Q5MINP PRN SL 09/10/24 06:30 Enoxaparin Sodium 70 mg Q12HR SC 09/13/24 22:00 UNV Enteral Nutritional Formula 240 ml TIDWM PO 09/16/24 18:00 10/07/24 12:04 240 ML Albuterol 2.5 mg Q4HWA NEB 09/17/24 18:00 10/07/24 10:55 2.5 MG Ipratropium [place] 0.5 mg Q4HWA NEB 09/17/24 18:00 10/07/24 10:55 0.5 MG Melatonin 10 mg QHSP PRN PO 09/20/24 15:15 10/06/24 20:30 10 MG Potassium Chloride 10 meq DAILY PO 09/23/24 10:00 10/07/24 08:41 10 MEQ Enalaprilat 1.25 mg Q6HP PRN IV 09/22/24 13:00 Apixaban 5 mg BID PO 09/23/24 22:00 10/07/24 08:41 5 MG Vancomycin HCl 0 ml @ 0 mls/hr UD IV 09/29/24 23:15 Cancel Sodium Chloride 10 ml QSHIFT@10,22 IV 09/30/24 22:00 10/07/24 08:44 10 ML Acetaminophen 650 mg UD PO 10/01/24 16:15 Cancel Diphenhydramine HCl 25 mg UD IV 10/01/24 16:15 Cancel Morphine Sulfate 1 mg Q4HP PRN IV 10/01/24 23:15 10/07/24 00:53 1 MG Voriconazole 220 mg/Dextrose 272 ml @ 136 mls/hr Q12H IV 10/04/24 15:00 10/07/24 02:31 136 MLS/HR Acetaminophen/ Hydrocodone Bitart 1 tab Q4HPRN PRN PO 10/04/24 10:45 10/07/24 02:39 1 TAB Vancomycin HCl 250 ml @ 250 mls/hr Q18H IV 10/05/24 05:00 Cancel Trimethoprim/ Sulfamethoxazole 1 tab Q12HR PO 10/04/24 22:00 10/07/24 08:41 1 TAB Furosemide 20 mg DAILY PO 10/07/24 10:00 10/07/24 08:42 20 MG Physical Exam: General: Generally weak, malnourished, a little confused, pale skin. Neck: Supple. No masses. HEENT: Forehead abrasion present. PERRL. Normal lids and conjunctiva. Moist mucous membranes. Oropharynx without lesions, exudates, or excessive erythema. Normal external nose and ears. Heart: Tachycardic. Regular rhythm. No murmur. No lower extremity edema. Lungs: Normal respiratory effort. Clear to auscultation bilaterally. No wheezes. No crackles. Abdomen: Soft. Non-tender. Non-distended. No masses or abdominal hernia. Bowel sounds generally weak. Musculoskeletal: Generally weak but able to move all limbs. No regional weakness. No digital cyanosis. Normal strength and tone in all four limbs. Skin: Pale skin. Warm and dry. Forehead abrasion. Stage 2 sacral ulcers; non- purulent, non-eroded. Neuro: Alert but slightly confused. No facial droop or slurred speech. Extra- ocular movements intact. Sensation intact to soft touch in all four limbs. Psych: Appropriate mood. Full affect. Oriented to person, place, and situation. laboratory and microbiology Laboratory Tests 10/07/24 05:56 10/06/24 08:29 Test 10/06/24 08:29 Range/Units Serum Glucose 99 74-106 mg/dL Problem List/Assessment/Plan Problems(with codes): (1) Generalized weakness (2) Multifocal pneumonia (3) Hyponatremia (4) Leukocytosis, unspecified (5) Hypertension (6) Status asthmaticus (7) Pneumonia (8) COPD (chronic obstructive pulmonary disease) (9) SHORTNESS OF BREATH (10) ASTHMA, CHRONIC OBSTRUCTIVE W ASTHMATICUS Problem List/Assessment/Plan ID Problem List: -- Generalized weakness -- Fall with head injury -- Multifocal pneumonia -- Leukocytosis -- COPD exacerbation -- Hyponatremia -- Stage 2 sacral ulcers -- Tobacco use disorder Assessment This is a 79 y.o. male with a past medical history of asthma, COPD, and depression, who presents with generalized weakness and a fall resulting in a forehead abrasion. He has been experiencing loss of appetite, no bowel movements, and shortness of breath. Laboratory findings show leukocytosis with a WBC count of 35.6??10?/L, thrombocytosis with platelets at 539??10?/L, hyponatremia with sodium at 120?mmol/L, BUN of 22?mg/dL, creatinine of 0.6?mg/dL, glucose of 102?mg/dL, lactic acid of 1.5?mmol/L, and hemoglobin of 13.7?g/dL. CT head showed no acute abnormality. Chest CT revealed thyromegaly and extensive alveolar and parenchymal infiltrates in both lungs, seen in the right middle lobe, lingula, and both lower lobes. He was started empirically on vancomycin and ceftriaxone; azithromycin was later added. The patient has stage 2 sacral ulcers, non-purulent and non-eroded. 09/13: On imaging his doppler lower extemity ultrasound shows a nonocclusive thrombo scene in the proximal left superficial fomoral vein. CT of lungs which showed no pulmonary embolism. diffuse abnormal tissue density in posterior media steinum extened from the upper thorax to diaphragmatic hiatus with small air bubbles thats increased in size compared to last exam, which could represent nectrotic adenopathy abscess or esophageal injury or rupture. component on the left at the diaphragmatic hiatus is recommended , smoking related lung disease , patchy eclecticism consolidation. 09/14: white count remains elevated at 33. Dr choi from oncology saw patinet and suggent proliferative disorder is a possiblility but will asses after antibiotics, as well as consider a biopsy after a few weeks. MRSA nares came negative. 09/15: white count is slowing coming down and a backorder of levofloxacin 09/16: white count is slowly downtrending now at 28, 2 liters nasal canula 09/17: Patient was able to produce and induced sputum sample and so far results are with no growth 09/21: White count continues to downtrend now at 13 09/22: white count is 17.2 , chest xray shows stable mass like opacities in both lungs , had a biopsy done of a left pair of veterebral mass , 5 core biopsies were obtained 09/23: white count is elevated at 18 , chest x-ray showed stable mass capacities throughout both lungs, patient is negative for HIV 09/24: Chest xray shows plural classifications and airspace opacities appear to be similar to prior examination. stable blunting of constophrenic agles , appears overall stable but on more oxygen then what he came in with . getting bicarbonate greater than 40 09/25: white count is 10.3 , significant improvement fungal serolgies and quant tb is negative 09/30: white count is 14.9 , thrombocytosis is 872 , concerned that patient is still having an undiagnosed infection that is not being treated adequately. Fungal serologies have come back negative , Tp came back negative and patient is tolerating antibiotic treatments 10/01: nonspecific inflammation on lymph node biopsy 10/04: Tolerating voriconazole 10/05: responding to voriconazole 10/06: Patient is improving on therapy Plan: - recommend 2 weeks of voriconazole , can be transitioned to oral at the same dose he has currently - reccomend continuing oral bactrum 1 double strength tab 2x a day for 2 weeks - repeat sputum culture -- Implement wound care for stage 2 sacral ulcers. -- Monitor vital signs and oxygen saturation. Isolation Precautions: Standard Plan discussed with: Other Dietary Evaluation Review Comments: 1) Consider SORAIDA 1 pkt BID for wounds 2) Continue current plan of care Expected Outcomes/Goals: F/U in 3-5 days Interpretation of weight loss: up to 20% in 1 year SHELBY OQUENDO MD Oct 07, 2024 13:41
--- NOTE | 2024-10-07 19:10 | DVHPN2 ---
Progress Note - Dictate Date Seen: Oct 07, 2024 Medical Necessity Reason Pt with a Central, PICC or Fol: Yes The following are medically ne: Lara Catheter Reason for lara catheter: Strict I&O Subjective Patient seen and examined at bedside. Remains on supplemental oxygen Overnight events reviewed. vital signs Vital Sign Date Time Temp Pulse Resp B/P (MAP) Pulse Ox O2 Delivery O2 Flow Rate FiO2 10/07/24 17:33 98.9 86 19 109/54 (72) 93 98.9 10/07/24 14:42 Room Air 0.0 10/07/24 14:42 21 Total Intake and Output 10/06/24 10/06/24 10/07/24 15:00 23:00 07:00 Intake Total 500 ml 872 ml Output Total 550 ml 700 ml Balance -50 ml 172 ml medications Current Medications Medications Dose Ordered Sig/Cathy Route Start Time Stop Time Status Last Admin Dose Admin Albuterol 2.5 mg Q4HPRN PRN NEB 09/10/24 06:30 09/22/24 02:04 2.5 MG Ipratropium [place] 0.5 mg Q4HPRN PRN NEB 09/10/24 06:30 09/22/24 02:04 0.5 MG Vancomycin HCl 0 ml @ 0 mls/hr UD IV 09/10/24 06:30 Cancel Ondansetron HCl 4 mg Q4HP PRN IV 09/10/24 06:30 Docusate Sodium 100 mg BIDPRN PRN PO 09/10/24 06:30 09/11/24 09:53 100 MG Acetaminophen 650 mg Q6HP PRN PO 09/10/24 06:30 09/30/24 00:01 650 MG Nitroglycerin 0.4 mg Q5MINP PRN SL 09/10/24 06:30 Enoxaparin Sodium 70 mg Q12HR SC 09/13/24 22:00 UNV Enteral Nutritional Formula 240 ml TIDWM PO 09/16/24 18:00 10/07/24 18:27 240 ML Albuterol 2.5 mg Q4HWA NEB 09/17/24 18:00 10/07/24 14:42 2.5 MG Ipratropium [place] 0.5 mg Q4HWA NEB 09/17/24 18:00 10/07/24 14:42 0.5 MG Melatonin 10 mg QHSP PRN PO 09/20/24 15:15 10/06/24 20:30 10 MG Potassium Chloride 10 meq DAILY PO 09/23/24 10:00 10/07/24 08:41 10 MEQ Enalaprilat 1.25 mg Q6HP PRN IV 09/22/24 13:00 Apixaban 5 mg BID PO 09/23/24 22:00 10/07/24 08:41 5 MG Vancomycin HCl 0 ml @ 0 mls/hr UD IV 09/29/24 23:15 Cancel Sodium Chloride 10 ml QSHIFT@10,22 IV 09/30/24 22:00 10/07/24 08:44 10 ML Acetaminophen 650 mg UD PO 10/01/24 16:15 Cancel Diphenhydramine HCl 25 mg UD IV 10/01/24 16:15 Cancel Morphine Sulfate 1 mg Q4HP PRN IV 10/01/24 23:15 10/07/24 00:53 1 MG Voriconazole 220 mg/Dextrose 272 ml @ 136 mls/hr Q12H IV 10/04/24 15:00 10/07/24 15:03 136 MLS/HR Acetaminophen/ Hydrocodone Bitart 1 tab Q4HPRN PRN PO 10/04/24 10:45 10/07/24 02:39 1 TAB Vancomycin HCl 250 ml @ 250 mls/hr Q18H IV 10/05/24 05:00 Cancel Trimethoprim/ Sulfamethoxazole 1 tab Q12HR PO 10/04/24 22:00 10/07/24 08:41 1 TAB Furosemide 20 mg DAILY PO 10/07/24 10:00 10/07/24 08:42 20 MG objective Gen.: Patient lying in bed in no apparent distress. On supplemental oxygen. Head: Normocephalic, atraumatic. Eyes: EOMI/PERRLA. Ears: Normal hearing. Normal anatomy. Neck/trachea: Trachea midline, supple. Nose: Normal external anatomy. Mouth: Moist mucous membranes. Chest: Decreased air entry bilaterally. No wheezing or rhonchi. Positive crackles. Cardiovascular: Positive S1, positive S2. Regular rate and rhythm. Abdomen: Positive bowel sounds in all 4 quadrants. Soft, non-tender, non- distended. : Deferred. Rectal: Deferred. Skin: Warm, dry. Intact. Extremities: 2+ radial pulses bilaterally. No lower extremity edema. Neuro: Awake, alert, oriented x3. No gross motor or sensory deficits. Cranial nerves II through XII intact. Gait not assessed. laboratory and microbiology Laboratory Tests 10/07/24 05:56 10/06/24 08:29 Test 10/06/24 08:29 Range/Units Serum Glucose 99 74-106 mg/dL Assessment/Plan Impression: Acute hypoxic respiratory failure Pneumonia COPD Emphysema, paraseptal and centrilobular Fibroid atelectatic opacities in the right middle lobe, lingula and bilateral lower lobes. Calcified pleural plaques in the right upper lobe and posterior aspects of the lower lobes bilaterally Pleural effusions, Atelectasis Hyponatremia Events: Remains on supplemental O2 at 1 LPM NC. Taper O2 as tolerated Incentive spirometry Continue bronchodilators NTS PRN. Continue antibiotics - Bactrim Continue antifungal Monitor BP Pain control Avoid oversedation Monitor wbc Monitor platelet count. Wound care Head of bed elevation Aspiration precautions Puree diet. Continue PT. Eliquis for DVT prophylaxis. Lara d/t urinary retention. HERSON resolved after Lara placement - HERSON likely due to urine retention. Diurese w/ Lasix as tolerated Monitor renal function Awaiting placement Disposition per hospitalist. Labs and imaging reviewed. Rest of plan as noted below. Plan: Supplemental oxygen Keep O2 saturation above 92% CT chest report and images reviewed. Emphysematous changes. Fibro atelectatic opacity in the right middle lobe, lingula and bilateral lower lobes. Calcified plaques in the right upper and bilateral lower lobes and posteriorly. Minimal pleural effusions and atelectasis. Antibiotics. Monitor WBC count. Blood cultures show no growth. Continue bronchodilators as needed. Pain control. Avoid over-sedation. Incentive spirometry. IV fluids at 60 mL an hour. Maintain euvolemia Monitor renal function. Monitor electrolytes. Supplement as necessary. Hyponatremia - Monitor sodium DVT prophylaxis -Eliquis Prognosis: Guarded given multiple comorbidities. Rest of plan per hospitalist and other consultants. Thank you Dr. Reed for allowing me to participate in this patient's care. Further recommendations will depend on patient's clinical course. Please do not hesitate to contact me if you have any questions or concerns. This medical document was created using an electronic medical record system with [employer] system. Although this document has been carefully reviewed, there may still be some phonetic and typographical errors. These areas are purely typographical due to imperfections of the software programs, and do not reflect any compromise in the patient's medical care. Dietary Evaluation Review Comments: 1) Consider SORAIDA 1 pkt BID for wounds 2) Continue current plan of care Expected Outcomes/Goals: F/U in 3-5 days Interpretation of weight loss: up to 20% in 1 year Plan discussed with: Patient, Other (JEANNINE Benitez) TORITO URBAN MD Oct 07, 2024 19:10
[2024-10-08] VITALS (19 sets, daily range): BP systolic 98–129; BP diastolic 44–60; PULSE 18–91; RESP 16–98; TEMP 97.7–98.9; O2SAT 94–100
[2024-10-08 07:58] LABS: Basophils # (auto) 0.1 10 ^3/uL (0-0.2); Basophils % (auto) 0.5 % (0.0-2.0); Eosinophils # (auto) 0 10 ^3/uL (0-0.8); Eosinophils % (auto) 0.2 % (0.0-7.0); Lymphocytes # (auto) 0.6 10 ^3/uL (0.4-5.4); Lymphocytes % (auto) 5.2 % (10.0-50.0); Mean Corpuscular Hemoglobin 30.6 pg (28.0-32.0); Mean Corpuscular Hgb Conc. 33.6 g/dL (32.0-36.0); Mean Corpuscular Volume 91.2 fL (80.0-100.0); Monocytes # (auto) 1.2 10 ^3/uL (0-1.3); Monocytes % (auto) 10.8 % (0.0-12.0); Neutrophils # (auto) 9.6 10 ^3/uL (1.6-8.6); Neutrophils % (auto) 83.3 % (37.0-80.0); Nucleated Red Blood Cells % 0.1 %; Platelet Count (auto) 486 10^3/uL (140-450); Red Blood Cells 2.95 10^6/uL (4.5-5.90); Red Cell Distribution Width 14.7 % (11.8-14.3); White Blood Cell 11.5 10^3/uL (4.4-10.8)
--- NOTE | 2024-10-08 12:08 | DVHPN2 ---
Subjective The patient is seen and examined at bedside. No change overnight. Remained shortness for breath. Reviewed: Care Plan, H&P, Labs Changes from previous H/P or p: No Changes Eyes: No Pain, No Vision change, No Conjunctivae inflammation, No Eyelid inflammation, No Other, No Redness ENT: No Ear pain, No Ear discharge, No Nose pain, No Nose discharge, No Nose congestion, No Mouth pain, No Mouth swelling, No Throat pain, No Throat swelling, No Other Cardiovascular: No Chest Pain, No Palpitations, No Orthopnea, No Paroxysmal Noc. Dyspnea, No Edema, No Lt Headedness, No Other Respiratory: No Cough, No Dry; Shortness of breath, SOB with excertion; No Wheezing, No Hemoptysis, No Pleuritic Pain, No Sputum; Other (SOB at rest) Gastrointestinal: Nausea; No Vomiting, No Abdominal Pain, No Diarrhea; C onstipation; No Melena, No Hematochezia; Other (Poor appetite) Genitourinary: No Dysuria, No Frequency, No Incontinence, No Hematuria, No Retention, No Other Musculoskeletal: No other, No neck pain, No shoulder pain, No arm pain, No back pain, No hand pain, No leg pain, No foot pain Skin: No Rash, No Lesions, No Jaundice, No Bruising, No Other Objective Vitals Vital Signs Date Time Temp Pulse Resp B/P (MAP) Pulse Ox O2 Delivery O2 Flow Rate FiO2 10/08/24 10:32 87 18 126/59 10/08/24 09:41 100 10/08/24 09:35 Nasal Cannula* 2 28 10/08/24 09:00 98.0 98.0 Intake/Output Intake and Output 10/08/24 07:00 Intake Total 1225 ml Output Total 2700 ml Balance -1475 ml Intake Oral 1225 ml Output Urine Total 2700 ml General Appearance: Alert, Oriented X3, Cooperative, mild distress HEENT: Atraumatic, PERRLA Lungs: Clear to auscultation, Other (Decreased breath sounds at bases. Nasal cannula at 1 L per) Cardiovascular: Normal S1, Normal S2 Abdomen: Normal bowel sounds Genitourinary: No Apparent Abnormalities Musculoskeletal: Normal sensory function, Normal motor function Neuro: Normal speech, Cranial nerves 3-12 NL Skin: Wounds (See nurse notes and pictures) Psych/Mental Status: Mental status NL, Mood NL Medications Current Medications Medications Dose Ordered Sig/Cathy Route Start Time Stop Time Status Last Admin Dose Admin Albuterol 2.5 mg Q4HPRN PRN NEB 09/10/24 06:30 09/22/24 02:04 2.5 MG Ipratropium [place] 0.5 mg Q4HPRN PRN NEB 09/10/24 06:30 09/22/24 02:04 0.5 MG Vancomycin HCl 0 ml @ 0 mls/hr UD IV 09/10/24 06:30 Cancel Ondansetron HCl 4 mg Q4HP PRN IV 09/10/24 06:30 Docusate Sodium 100 mg BIDPRN PRN PO 09/10/24 06:30 09/11/24 09:53 100 MG Acetaminophen 650 mg Q6HP PRN PO 09/10/24 06:30 09/30/24 00:01 650 MG Nitroglycerin 0.4 mg Q5MINP PRN SL 09/10/24 06:30 Enoxaparin Sodium 70 mg Q12HR SC 09/13/24 22:00 UNV Enteral Nutritional Formula 240 ml TIDWM PO 09/16/24 18:00 10/08/24 08:00 240 ML Albuterol 2.5 mg Q4HWA NEB 09/17/24 18:00 10/08/24 09:35 2.5 MG Ipratropium [place] 0.5 mg Q4HWA NEB 09/17/24 18:00 10/08/24 09:35 0.5 MG Melatonin 10 mg QHSP PRN PO 09/20/24 15:15 10/06/24 20:30 10 MG Potassium Chloride 10 meq DAILY PO 09/23/24 10:00 10/08/24 10:06 10 MEQ Enalaprilat 1.25 mg Q6HP PRN IV 09/22/24 13:00 Apixaban 5 mg BID PO 09/23/24 22:00 10/08/24 10:07 5 MG Vancomycin HCl 0 ml @ 0 mls/hr UD IV 09/29/24 23:15 Cancel Sodium Chloride 10 ml QSHIFT@10,22 IV 09/30/24 22:00 10/08/24 10:05 10 ML Acetaminophen 650 mg UD PO 10/01/24 16:15 Cancel Diphenhydramine HCl 25 mg UD IV 10/01/24 16:15 Cancel Morphine Sulfate 1 mg Q4HP PRN IV 10/01/24 23:15 10/08/24 10:32 1 MG Voriconazole 220 mg/Dextrose 272 ml @ 136 mls/hr Q12H IV 10/04/24 15:00 10/08/24 03:00 136 MLS/HR Acetaminophen/ Hydrocodone Bitart 1 tab Q4HPRN PRN PO 10/04/24 10:45 10/07/24 02:39 1 TAB Vancomycin HCl 250 ml @ 250 mls/hr Q18H IV 10/05/24 05:00 Cancel Trimethoprim/ Sulfamethoxazole 1 tab Q12HR PO 10/04/24 22:00 10/08/24 10:06 1 TAB Furosemide 20 mg DAILY PO 10/07/24 10:00 10/08/24 10:07 20 MG Laboratory Results Laboratory Tests 10/06/24 08:29 10/08/24 07:00 Urinalysis Test 09/14/24 08:00 09/30/24 06:15 Urine Osmolality 405 mOsm/kg Urine Creatinine 40.31 mg/dL (30.0-125.0) Urine Protein/Creatinine Ratio 0.54 Urine Sodium 24 mmol/L (40-220) L Urine Total Protein 21.7 mg/dL (1-14) H Urine Color Yellow (Yellow) Urine Clarity Turbid (Clear) H Urine pH 7.0 (5.0-9.0) Urine Specific [place] 1.032 (1.001-1.035) Urine Protein 1+ (Negative) H Urine Ketones Negative (Negative) Urine Blood 1+ /uL (Negative) H Urine Nitrite Negative (Negative) Urine Bilirubin Negative (Negative) Urine Urobilinogen 12 mg/dL (Negative) H Urine Leukocyte Esterase Negative /uL (Negative) Urine RBC 30 /hpf (0 - 3) Urine WBC 9 /hpf (0 - 3) Urine Squamous Epithelial Cells Few /hpf (<5) Urine Bacteria None seen /hpf (None Seen) Urine Hyaline Casts Many /lpf (0 - 2) Urine Mucus Few (None Seen) Urine Glucose Normal mg/dL (Normal) Microbiology Microbiology Date/Time Source Procedure Growth Status 09/30/24 06:15 Voided Urine Urine Culture - Final Complete 09/29/24 10:55 Blood Blood Culture - Final NO GROWTH AFTER 5 DAYS OF INCUBATION. Complete 09/16/24 20:50 Sputum Gram Stain - Final Complete 09/16/24 20:50 Respiratory Culture - Final Presumptive Desirae albicans Complete 09/13/24 09:50 Nose MRSA Screen - Final Complete Assessment/Plan Assessment/Plan -sepsis -pneumonia -necrotizing lymph node -bullous emphysema -acute hypoxic respiratory failure -nicotine dependence -atelectasis -hyponatremia -pulmonary mass, rule out malignant -DVT to cephalic vein -Deep tissue injury to coccyx -cachexia -thrombocytosis Plan: Continuing current management. Continuing with IV antibiotic. Continuing with Eliquis. Continuing with Diet with supplement. Continuing with nebulizer. We will monitor platelets. Encouraged the patient to work with physical therapy. The patient is still not ambulate. Continuing with Vfend and Bactrim. This medical document was created using an electronic medical record system with [employer] direct computerized dictation system. Although this document has been carefully reviewed, there may still be some phonetic and typographical errors. These areas are purely typographical due to imperfections of the software programs, and do not reflect any compromise in the patient's medical care. Plan discussed with: Patient Date of Service: Oct 08, 2024 Billing Provider: SHIRLEY ANGUIANO MD Common Visit Codes: [id number] INP/OBS CARE(HIGH) SHIRLEY ANGUIANO MD Oct 08, 2024 12:08
[2024-10-08] MEDS: ONDANSETRON HCL 4 MG/2 ML VIAL IV PRN (19:52)
--- NOTE | 2024-10-08 21:19 | DVHPN2 ---
Progress Note - Dictate Date Seen: Oct 08, 2024 Medical Necessity Reason Pt with a Central, PICC or Fol: Yes The following are medically ne: Lara Catheter Reason for lara catheter: Strict I&O Subjective Patient seen and examined at bedside. Remains on supplemental oxygen Overnight events reviewed. vital signs Vital Sign Date Time Temp Pulse Resp B/P (MAP) Pulse Ox O2 Delivery O2 Flow Rate FiO2 10/08/24 19:29 89 18 100 10/08/24 19:28 Nasal Cannula* 2 28 10/08/24 17:00 98.2 114/44 (67) 98.2 Total Intake and Output 10/07/24 10/07/24 10/08/24 15:00 23:00 07:00 Intake Total 525 ml 700 ml Output Total 1900 ml 800 ml Balance -1375 ml -100 ml medications Current Medications Medications Dose Ordered Sig/Cathy Route Start Time Stop Time Status Last Admin Dose Admin Albuterol 2.5 mg Q4HPRN PRN NEB 09/10/24 06:30 09/22/24 02:04 2.5 MG Ipratropium [place] 0.5 mg Q4HPRN PRN NEB 09/10/24 06:30 09/22/24 02:04 0.5 MG Vancomycin HCl 0 ml @ 0 mls/hr UD IV 09/10/24 06:30 Cancel Ondansetron HCl 4 mg Q4HP PRN IV 09/10/24 06:30 10/08/24 19:52 4 MG Docusate Sodium 100 mg BIDPRN PRN PO 09/10/24 06:30 09/11/24 09:53 100 MG Acetaminophen 650 mg Q6HP PRN PO 09/10/24 06:30 09/30/24 00:01 650 MG Nitroglycerin 0.4 mg Q5MINP PRN SL 09/10/24 06:30 Enoxaparin Sodium 70 mg Q12HR SC 09/13/24 22:00 UNV Enteral Nutritional Formula 240 ml TIDWM PO 09/16/24 18:00 10/08/24 18:00 240 ML Albuterol 2.5 mg Q4HWA NEB 09/17/24 18:00 10/08/24 19:25 2.5 MG Ipratropium [place] 0.5 mg Q4HWA NEB 09/17/24 18:00 10/08/24 19:25 0.5 MG Melatonin 10 mg QHSP PRN PO 09/20/24 15:15 10/06/24 20:30 10 MG Potassium Chloride 10 meq DAILY PO 09/23/24 10:00 10/08/24 10:06 10 MEQ Enalaprilat 1.25 mg Q6HP PRN IV 09/22/24 13:00 Apixaban 5 mg BID PO 09/23/24 22:00 10/08/24 10:07 5 MG Vancomycin HCl 0 ml @ 0 mls/hr UD IV 09/29/24 23:15 Cancel Sodium Chloride 10 ml QSHIFT@10,22 IV 09/30/24 22:00 10/08/24 10:05 10 ML Acetaminophen 650 mg UD PO 10/01/24 16:15 Cancel Diphenhydramine HCl 25 mg UD IV 10/01/24 16:15 Cancel Morphine Sulfate 1 mg Q4HP PRN IV 10/01/24 23:15 10/08/24 10:32 1 MG Voriconazole 220 mg/Dextrose 272 ml @ 136 mls/hr Q12H IV 10/04/24 15:00 10/08/24 16:07 136 MLS/HR Acetaminophen/ Hydrocodone Bitart 1 tab Q4HPRN PRN PO 10/04/24 10:45 10/08/24 19:58 1 TAB Vancomycin HCl 250 ml @ 250 mls/hr Q18H IV 10/05/24 05:00 Cancel Trimethoprim/ Sulfamethoxazole 1 tab Q12HR PO 10/04/24 22:00 10/08/24 10:06 1 TAB Furosemide 20 mg DAILY PO 10/07/24 10:00 10/08/24 10:07 20 MG objective Gen.: Patient lying in bed in no apparent distress. On supplemental oxygen. Head: Normocephalic, atraumatic. Eyes: EOMI/PERRLA. Ears: Normal hearing. Normal anatomy. Neck/trachea: Trachea midline, supple. Nose: Normal external anatomy. Mouth: Moist mucous membranes. Chest: Decreased air entry bilaterally. No wheezing or rhonchi. Positive crackles. Cardiovascular: Positive S1, positive S2. Regular rate and rhythm. Abdomen: Positive bowel sounds in all 4 quadrants. Soft, non-tender, non- distended. : Deferred. Rectal: Deferred. Skin: Warm, dry. Intact. Extremities: 2+ radial pulses bilaterally. No lower extremity edema. Neuro: Awake, alert, oriented x3. No gross motor or sensory deficits. Cranial nerves II through XII intact. Gait not assessed. laboratory and microbiology Laboratory Tests 10/08/24 07:00 10/06/24 08:29 Test 10/06/24 08:29 Range/Units Serum Glucose 99 74-106 mg/dL Assessment/Plan Impression: Acute hypoxic respiratory failure Pneumonia COPD Emphysema, paraseptal and centrilobular Fibroid atelectatic opacities in the right middle lobe, lingula and bilateral lower lobes. Calcified pleural plaques in the right upper lobe and posterior aspects of the lower lobes bilaterally Pleural effusions, Atelectasis Hyponatremia Events: Remains on supplemental O2 at 2 LPM NC. Taper O2 as tolerated Incentive spirometry Continue bronchodilators NTS PRN. Continue antibiotics - Bactrim Continue antifungal Eliquis BID. Pain control Avoid oversedation Monitor wbc Monitor platelet count. Wound care Head of bed elevation Aspiration precautions Puree diet. Continue PT. Lara d/t urinary retention. HERSON resolved after Lara placement - HERSON likely due to urine retention. Diurese w/ Lasix as tolerated Monitor renal function Maintain euvolemia Awaiting placement Disposition per hospitalist. Labs and imaging reviewed. Rest of plan as noted below. Plan: Supplemental oxygen Keep O2 saturation above 92% CT chest report and images reviewed. Emphysematous changes. Fibro atelectatic opacity in the right middle lobe, lingula and bilateral lower lobes. Calcified plaques in the right upper and bilateral lower lobes and posteriorly. Minimal pleural effusions and atelectasis. Antibiotics. Monitor WBC count. Blood cultures show no growth. Continue bronchodilators as needed. Pain control. Avoid over-sedation. Incentive spirometry. IV fluids at 60 mL an hour. Maintain euvolemia Monitor renal function. Monitor electrolytes. Supplement as necessary. Hyponatremia - Monitor sodium DVT prophylaxis -Eliquis Prognosis: Guarded given multiple comorbidities. Rest of plan per hospitalist and other consultants. Thank you Dr. Reed for allowing me to participate in this patient's care. Further recommendations will depend on patient's clinical course. Please do not hesitate to contact me if you have any questions or concerns. This medical document was created using an electronic medical record system with Dragon computerized dictation system. Although this document has been carefully reviewed, there may still be some phonetic and typographical errors. These areas are purely typographical due to imperfections of the software programs, and do not reflect any compromise in the patient's medical care. Dietary Evaluation Review Comments: 1) Consider SORAIDA 1 pkt BID for wounds 2) Continue current plan of care Expected Outcomes/Goals: F/U in 3-5 days Interpretation of weight loss: up to 20% in 1 year Plan discussed with: Patient, Other (RN) TORITO URBAN MD Oct 08, 2024 21:18
--- NOTE | 2024-10-08 23:34 | DVHPN2 ---
Consult Progress Note Date Seen: Oct 08, 2024 Subjective Patient reports: Feels better Objective vital signs Vital Sign Date Time Temp Pulse Resp B/P (MAP) Pulse Ox O2 Delivery O2 Flow Rate FiO2 10/08/24 22:20 91 18 100 10/08/24 21:00 97.7 129/48 (75) 97.7 10/08/24 19:28 Nasal Cannula* 2 28 Total Intake and Output 10/07/24 10/07/24 10/08/24 15:00 23:00 07:00 Intake Total 525 ml 700 ml Output Total 1900 ml 800 ml Balance -1375 ml -100 ml medications Current Medications Medications Dose Ordered Sig/Cathy Route Start Time Stop Time Status Last Admin Dose Admin Albuterol 2.5 mg Q4HPRN PRN NEB 09/10/24 06:30 09/22/24 02:04 2.5 MG Ipratropium [place] 0.5 mg Q4HPRN PRN NEB 09/10/24 06:30 09/22/24 02:04 0.5 MG Vancomycin HCl 0 ml @ 0 mls/hr UD IV 09/10/24 06:30 Cancel Ondansetron HCl 4 mg Q4HP PRN IV 09/10/24 06:30 10/08/24 19:52 4 MG Docusate Sodium 100 mg BIDPRN PRN PO 09/10/24 06:30 09/11/24 09:53 100 MG Acetaminophen 650 mg Q6HP PRN PO 09/10/24 06:30 09/30/24 00:01 650 MG Nitroglycerin 0.4 mg Q5MINP PRN SL 09/10/24 06:30 Enoxaparin Sodium 70 mg Q12HR SC 09/13/24 22:00 UNV Enteral Nutritional Formula 240 ml TIDWM PO 09/16/24 18:00 10/08/24 18:00 240 ML Albuterol 2.5 mg Q4HWA NEB 09/17/24 18:00 10/08/24 22:14 2.5 MG Ipratropium [place] 0.5 mg Q4HWA NEB 09/17/24 18:00 10/08/24 22:13 0.5 MG Melatonin 10 mg QHSP PRN PO 09/20/24 15:15 10/08/24 23:16 10 MG Potassium Chloride 10 meq DAILY PO 09/23/24 10:00 10/08/24 10:06 10 MEQ Enalaprilat 1.25 mg Q6HP PRN IV 09/22/24 13:00 Apixaban 5 mg BID PO 09/23/24 22:00 10/08/24 21:49 5 MG Vancomycin HCl 0 ml @ 0 mls/hr UD IV 09/29/24 23:15 Cancel Sodium Chloride 10 ml QSHIFT@10,22 IV 09/30/24 22:00 10/08/24 22:00 10 ML Acetaminophen 650 mg UD PO 10/01/24 16:15 Cancel Diphenhydramine HCl 25 mg UD IV 10/01/24 16:15 Cancel Morphine Sulfate 1 mg Q4HP PRN IV 10/01/24 23:15 10/08/24 10:32 1 MG Voriconazole 220 mg/Dextrose 272 ml @ 136 mls/hr Q12H IV 10/04/24 15:00 10/08/24 16:07 136 MLS/HR Acetaminophen/ Hydrocodone Bitart 1 tab Q4HPRN PRN PO 10/04/24 10:45 10/08/24 19:58 1 TAB Vancomycin HCl 250 ml @ 250 mls/hr Q18H IV 10/05/24 05:00 Cancel Trimethoprim/ Sulfamethoxazole 1 tab Q12HR PO 10/04/24 22:00 10/08/24 21:49 1 TAB Furosemide 20 mg DAILY PO 10/07/24 10:00 10/08/24 10:07 20 MG PHYSICAL EXAM: - GENERAL: Alert and oriented x 3. No acute distress. Well-nourished. ? - EYES: EOMI. Anicteric. ?- HENT: Moist mucous membranes. No scleral icterus. No cervical lymphadenopathy. ?- LUNGS: Clear to auscultation bilaterally. No accessory muscle use.? - CARDIOVASCULAR: Regular rate and rhythm. No murmur. No JVD.? - ABDOMEN: Soft, non-tender and non-distended. No palpable masses.? - EXTREMITIES: No edema. Non-tender.?SKIN: No rashes or lesions. Warm. ? - NEUROLOGIC: No focal neurological deficits. CN II-XII grossly intact, but not individually tested.? - PSYCHIATRIC: Cooperative. Appropriate mood and affect. laboratory and microbiology Laboratory Tests 10/08/24 07:00 10/06/24 08:29 Test 10/06/24 08:29 Range/Units Serum Glucose 99 74-106 mg/dL Problem List/Assessment/Plan Problem List/Assessment/Plan ID Problem List: -- Generalized weakness -- Fall with head injury -- Multifocal pneumonia -- Leukocytosis -- COPD exacerbation -- Hyponatremia -- Stage 2 sacral ulcers -- Tobacco use disorder Assessment This is a 79 y.o. male with a past medical history of asthma, COPD, and depression, who presents with generalized weakness and a fall resulting in a forehead abrasion. He has been experiencing loss of appetite, no bowel movements, and shortness of breath. Laboratory findings show leukocytosis with a WBC count of 35.6??10?/L, thrombocytosis with platelets at 539??10?/L, hyponatremia with sodium at 120?mmol/L, BUN of 22?mg/dL, creatinine of 0.6?mg/dL, glucose of 102?mg/dL, lactic acid of 1.5?mmol/L, and hemoglobin of 13.7?g/dL. CT head showed no acute abnormality. Chest CT revealed thyromegaly and extensive alveolar and parenchymal infiltrates in both lungs, seen in the right middle lobe, lingula, and both lower lobes. He was started empirically on vancomycin and ceftriaxone; azithromycin was later added. The patient has stage 2 sacral ulcers, non-purulent and non-eroded. 09/13: On imaging his doppler lower extemity ultrasound shows a nonocclusive thrombo scene in the proximal left superficial fomoral vein. CT of lungs which showed no pulmonary embolism. diffuse abnormal tissue density in posterior media steinum extened from the upper thorax to diaphragmatic hiatus with small air bubbles thats increased in size compared to last exam, which could represent nectrotic adenopathy abscess or esophageal injury or rupture. component on the left at the diaphragmatic hiatus is recommended , smoking related lung disease , patchy eclecticism consolidation. 09/14: white count remains elevated at 33. Dr choi from oncology saw patinet and suggent proliferative disorder is a possiblility but will asses after antibiotics, as well as consider a biopsy after a few weeks. MRSA nares came negative. 09/15: white count is slowing coming down and a backorder of levofloxacin 09/16: white count is slowly downtrending now at 28, 2 liters nasal canula 09/17: Patient was able to produce and induced sputum sample and so far results are with no growth 09/21: White count continues to downtrend now at 13 09/22: white count is 17.2 , chest xray shows stable mass like opacities in both lungs , had a biopsy done of a left pair of veterebral mass , 5 core biopsies were obtained 09/23: white count is elevated at 18 , chest x-ray showed stable mass capacities throughout both lungs, patient is negative for HIV 09/24: Chest xray shows plural classifications and airspace opacities appear to be similar to prior examination. stable blunting of constophrenic agles , appears overall stable but on more oxygen then what he came in with . getting bicarbonate greater than 40 09/25: white count is 10.3 , significant improvement fungal serolgies and quant tb is negative 09/30: white count is 14.9 , thrombocytosis is 872 , concerned that patient is still having an undiagnosed infection that is not being treated adequately. Fungal serologies have come back negative , Tp came back negative and patient is tolerating antibiotic treatments 10/01: nonspecific inflammation on lymph node biopsy 10/04: Tolerating voriconazole 10/05: responding to voriconazole 10/06: Patient is improving on therapy Plan: - recommend 2 weeks of voriconazole , can be transitioned to oral at the same dose he has currently EOT 10/16/24 - reccomend continuing oral bactrum 1 double strength tab 2x a day for 2 weeks EOT 10/16/24 - repeat sputum culture -- Implement wound care for stage 2 sacral ulcers. -- Monitor vital signs and oxygen saturation. Isolation Precautions: Standard Plan discussed with: Patient Dietary Evaluation Review Comments: 1) Consider SORAIDA 1 pkt BID for wounds 2) Continue current plan of care Expected Outcomes/Goals: F/U in 3-5 days Interpretation of weight loss: up to 20% in 1 year SHELBY OQUENDO MD Oct 08, 2024 23:34
[2024-10-09] VITALS (17 sets, daily range): BP systolic 101–167; BP diastolic 41–88; PULSE 79–97; RESP 17–20; TEMP 97.7–98.7; O2SAT 90–100
[2024-10-09 07:05] LABS: Basophils # (auto) 0 10 ^3/uL (0-0.2); Basophils % (auto) 0.4 % (0.0-2.0); Eosinophils # (auto) 0.1 10 ^3/uL (0-0.8); Eosinophils % (auto) 0.7 % (0.0-7.0); Hematocrit 25.8 % (41.0-53.0); Hemoglobin 8.7 g/dL (13.5-17.5); Lymphocytes # (auto) 0.7 10 ^3/uL (0.4-5.4); Lymphocytes % (auto) 6.9 % (10.0-50.0); Mean Corpuscular Hemoglobin 30.8 pg (28.0-32.0); Mean Corpuscular Hgb Conc. 33.6 g/dL (32.0-36.0); Mean Corpuscular Volume 91.6 fL (80.0-100.0); Monocytes # (auto) 1.3 10 ^3/uL (0-1.3); Monocytes % (auto) 12.7 % (0.0-12.0); Neutrophils # (auto) 7.9 10 ^3/uL (1.6-8.6); Neutrophils % (auto) 79.3 % (37.0-80.0); Nucleated Red Blood Cells % 0.1 %; Platelet Count (auto) 445 10^3/uL (140-450); Red Blood Cells 2.82 10^6/uL (4.5-5.90); Red Cell Distribution Width 14.9 % (11.8-14.3); White Blood Cell 9.9 10^3/uL (4.4-10.8)
--- NOTE | 2024-10-09 11:38 | DVHINCON2 ---
Date of Service if different f: Oct 09, 2024 Consultation ([facility]) Progress: Somewhat better Labs Laboratory Tests Test 09/09/24 23:55 09/10/24 03:10 09/11/24 03:45 09/12/24 05:10 B-Type Natriuretic Peptide 121.45 pg/mL (0-100) Lactic Acid Level 1.5 mmol/L (0.4-2.0) Clumped Platelets Few Serum Osmolality 277 mOsm/kg (278-298) Triglycerides Level 70 mg/dL (< 150) Cholesterol Level 80 mg/dL (< 200) LDL Cholesterol 42 mg/dL (< 100) HDL Cholesterol 16 mg/dL (40-59) Test 09/12/24 15:55 09/14/24 08:00 09/15/24 06:23 09/16/24 05:45 Troponin I High Sensitivity 5 ng/L (</=54) Urine Osmolality 405 mOsm/kg Urine Creatinine 40.31 mg/dL (30.0-125.0) Urine Protein/Creatinine Ratio 0.54 Urine Sodium 24 mmol/L (40-220) Urine Total Protein 21.7 mg/dL (1-14) Random Vancomycin Level 10.8 ug/mL (5-10) Magnesium Level 2.1 mg/dL (1.6-2.6) Test 09/19/24 05:55 09/22/24 06:49 09/23/24 05:40 09/24/24 06:45 Smudge Cells 2 /100 WBC Large Platelets Few Giant Platelets Few Stomatocytes Few Total Bilirubin 0.4 mg/dL (0.2-1.0) Aspartate Amino Transf (AST/SGOT) 32 U/L (13-40) Alanine Aminotransferase (ALT/SGPT) 12 U/L (7-40) Alkaline Phosphatase 80 U/L (46-116) Total Protein 5.6 g/dL (5.7-8.2) Albumin 2.4 g/dL (3.2-4.8) Blastomyces Ab Immunodiffusion Negative (Neg:<1:1) Coccidioides Antibody (Comp Fix) <1:2 (<1:2) HIV (1&2) Antibody Negative (Negative) Aspergillus flavus Antibody Negative (Neg:<1:1) Aspergillus fumigatus Antibody Negative (Neg:<1:1) Aspergillus niger Antibody Negative (Neg:<1:1) TB Test (QFT) Gold Plus Negative (Negative) TB Test (QFT) Nil 0.01 IU/mL (.) TB Test (QFT) Mitogen 9.14 IU/mL (.) TB Test (QFT) Antigen 1 0.00 IU/mL (.) TB Test (QFT) Antigen 2 0.01 IU/mL (.) TB Test (QFT) Criteria Comment (.) Test 09/30/24 06:15 09/30/24 11:00 10/01/24 08:48 10/02/24 06:15 Urine Color Yellow (Yellow) Urine Clarity Turbid (Clear) Urine pH 7.0 (5.0-9.0) Urine Specific [place] 1.032 (1.001-1.035) Urine Protein 1+ (Negative) Urine Ketones Negative (Negative) Urine Blood 1+ /uL (Negative) Urine Nitrite Negative (Negative) Urine Bilirubin Negative (Negative) Urine Urobilinogen 12 mg/dL (Negative) Urine Leukocyte Esterase Negative /uL (Negative) Urine RBC 30 /hpf (0 - 3) Urine WBC 9 /hpf (0 - 3) Urine Squamous Epithelial Cells Few /hpf (<5) Urine Bacteria None seen /hpf (None Seen) Urine Hyaline Casts Many /lpf (0 - 2) Urine Mucus Few (None Seen) Urine Glucose Normal mg/dL (Normal) Prothrombin Time 13.0 sec (9.3-11.8) Prothromb Time International Ratio 1.25 (0.9-1.15) Activated Partial Thromboplast Time 29.7 SEC (24.5-34.5) Blood Gas Specimen Type Arterial Blood Gas Sample Site Right radial Blood Gas Patient Temperature 37.0 Arterial Blood Date Drawn [id number] Arterial Blood pH 7.475 (7.350-7.450) Arterial Blood Partial Pressure CO2 45.1 mmHg (35.0-48.0) Arterial Blood Partial Pressure O2 76.9 mmHg (83.0-108.0) Arterial Blood HCO3 32.5 mmol/L (21.0-28.0) Arterial Blood Oxygen Saturation 94.8 % (94.0-98.0) Arterial Blood Base Excess 8.0 mmol/L (-2.0-3.0) Arterial Blood Oxyhemoglobin 94.2 % (94.0-98.0) Arterial Blood Carboxyhemoglobin 0.2 % (0.5-1.5) Arterial Blood Methemoglobin 0.4 % (0.0-1.5) [place] Test Yes Blood Gas Total Hemoglobin 10.40 g/dL (13.5-17.5) Blood Gas Liter Flow 2.00 Blood Gas Modality Nasal cannula FiO2 % 28.0 Differential Total Cells Counted 100.0 (100) Neutrophils % (Manual) 85 (37.0-80.0) Band Neutrophils % (Manual) 5 Lymphocytes % (Manual) 4 (10.0-50.0) Monocytes % (Manual) 5 (0-12) Eosinophils % (Manual) 1 (0-7) Basophils % (Manual) 0 (0.0-2.0) Metamyelocytes % (manual) 0 Myelocytes % (Manual) 0 Promyelocytes % (Manual) 0 Blast Cells % (Manual) 0 Reactive Lymphocytes 0 Platelet Estimate Markedly increased Red Blood Cell Morphology Normal Test 10/04/24 10:20 10/06/24 08:29 10/09/24 06:21 Vancomycin Level Trough 19.5 ug/mL (5-10) Sodium Level 132 mmol/L (136-145) Potassium Level 4.8 mmol/L (3.5-5.1) Chloride Level 98 mmol/L (98-107) Carbon Dioxide Level 32 mmol/L (20-31) Anion Gap 2 (5-15) Blood Urea Nitrogen 12 mg/dL (9-23) Creatinine 0.41 mg/dL (0.700-1.30) Glomerular Filtration Rate Calc 110 mL/min (>90) BUN/Creatinine Ratio 29.3 (10.0-20.0) Serum Glucose 99 mg/dL (74-106) Calcium Level 8.9 mg/dL (8.7-10.4) White Blood Count 9.9 10^3/uL (4.4-10.8) Red Blood Count 2.82 10^6/uL (4.5-5.90) Hemoglobin 8.7 g/dL (13.5-17.5) Hematocrit 25.8 % (41.0-53.0) Mean Corpuscular Volume 91.6 fL (80.0-100.0) Mean Corpuscular Hemoglobin 30.8 pg (28.0-32.0) Mean Corpuscular Hemoglobin Concent 33.6 g/dL (32.0-36.0) Red Cell Distribution Width 14.9 % (11.8-14.3) Platelet Count 445 10^3/uL (140-450) Mean Platelet Volume 6.4 fL (6.9-10.8) Neutrophils (%) (Auto) 79.3 % (37.0-80.0) Lymphocytes (%) (Auto) 6.9 % (10.0-50.0) Monocytes (%) (Auto) 12.7 % (0.0-12.0) Eosinophils (%) (Auto) 0.7 % (0.0-7.0) Basophils (%) (Auto) 0.4 % (0.0-2.0) Neutrophils # (Auto) 7.9 10 ^3/uL (1.6-8.6) Lymphocytes # (Auto) 0.7 10 ^3/uL (0.4-5.4) Monocytes # (Auto) 1.3 10 ^3/uL (0-1.3) Eosinophils # (Auto) 0.1 10 ^3/uL (0-0.8) Basophils # (Auto) 0 10 ^3/uL (0-0.2) Nucleated Red Blood Cells 0.1 % Microbiology Date/Time Source Procedure Growth Status 09/30/24 06:15 Voided Urine Urine Culture - Final Complete 09/29/24 10:55 Blood Blood Culture - Final NO GROWTH AFTER 5 DAYS OF INCUBATION. Complete 09/16/24 20:50 Sputum Gram Stain - Final Complete 09/16/24 20:50 Respiratory Culture - Final Presumptive Desirae albicans Complete 09/13/24 09:50 Nose MRSA Screen - Final Complete Appetite: Poor Side effects of medications: No Appearance: Older than stated age Psychomotor activity: WNL, Calm Behavioral: Cooperative Eye contact: Appropriate Speech: WNL Affect: Appropriate Mood: Anxious Thought processes: Linear/Goal-directed Thought content: WNL Suicidal ideations: Absent Homicidal ideations: Absent Orientation: Person, Place, Time, Situation Memory intact: Recent Intellect: Average Abstractability: WNL Concentration: Adequate Attention: Adequate Judgement: WNL Insight: Good Vitals Vital Signs Date Time Temp Pulse Resp B/P (MAP) Pulse Ox O2 Delivery O2 Flow Rate FiO2 10/09/24 10:35 127/41 10/09/24 09:58 86 18 100 10/09/24 09:52 Room Air* 0 21 10/09/24 08:31 97.7 97.7 Current medications Current Medications Medications Dose Ordered Sig/Cathy Route Start Time Stop Time Status Last Admin Dose Admin Albuterol 2.5 mg Q4HPRN PRN NEB 09/10/24 06:30 09/22/24 02:04 2.5 MG Ipratropium [place] 0.5 mg Q4HPRN PRN NEB 09/10/24 06:30 09/22/24 02:04 0.5 MG Vancomycin HCl 0 ml @ 0 mls/hr UD IV 09/10/24 06:30 Cancel Ondansetron HCl 4 mg Q4HP PRN IV 09/10/24 06:30 10/08/24 19:52 4 MG Docusate Sodium 100 mg BIDPRN PRN PO 09/10/24 06:30 09/11/24 09:53 100 MG Acetaminophen 650 mg Q6HP PRN PO 09/10/24 06:30 09/30/24 00:01 650 MG Nitroglycerin 0.4 mg Q5MINP PRN SL 09/10/24 06:30 Enoxaparin Sodium 70 mg Q12HR SC 09/13/24 22:00 UNV Enteral Nutritional Formula 240 ml TIDWM PO 09/16/24 18:00 10/09/24 08:00 240 ML Albuterol 2.5 mg Q4HWA [facility] 09/17/24 18:00 10/09/24 09:52 2.5 MG Ipratropium [place] 0.5 mg Q4HWA [facility] 09/17/24 18:00 10/09/24 09:52 0.5 MG Melatonin 10 mg QHSP PRN PO 09/20/24 15:15 10/08/24 23:16 10 MG Potassium Chloride 10 meq DAILY PO 09/23/24 10:00 10/09/24 10:33 10 MEQ Enalaprilat 1.25 mg Q6HP PRN IV 09/22/24 13:00 Apixaban 5 mg BID PO 09/23/24 22:00 10/09/24 10:00 5 MG Vancomycin HCl 0 ml @ 0 mls/hr UD IV 09/29/24 23:15 Cancel Sodium Chloride 10 ml QSHIFT@10,22 IV 09/30/24 22:00 10/09/24 10:00 10 ML Acetaminophen 650 mg UD PO 10/01/24 16:15 Cancel Diphenhydramine HCl 25 mg UD IV 10/01/24 16:15 Cancel Morphine Sulfate 1 mg Q4HP PRN IV 10/01/24 23:15 10/08/24 10:32 1 MG Voriconazole 220 mg/Dextrose 272 ml @ 136 mls/hr Q12H IV 10/04/24 15:00 10/09/24 03:26 136 MLS/HR Acetaminophen/ Hydrocodone Bitart 1 tab Q4HPRN PRN PO 10/04/24 10:45 10/09/24 03:34 1 TAB Vancomycin HCl 250 ml @ 250 mls/hr Q18H IV 10/05/24 05:00 Cancel Trimethoprim/ Sulfamethoxazole 1 tab Q12HR PO 10/04/24 22:00 10/08/24 21:49 1 TAB Furosemide 20 mg DAILY PO 10/07/24 10:00 10/09/24 10:35 20 MG Medication adjusted: No Labs ordered: No Psychotherapy provided: Yes Type: Voluntary Diagnosis: Hypnoapompic and Hypnagogic hallucinations. No thought disorder. No mood disorder. Plan : Pls ensure that the pt has the lower amount of stimulation at night and around shift change hours. Pls have pt turn off the TV at around 10 pm at most. Pls provide ear muffs (the small foam ones) and a sleep mask to allow the pt to get good sleep at night. May add melatonin 5 mg and remeberon 15 mg qhs. Remeron should help with improving appetite and inducing sleep in concert with melatonin. Pt is not a danger to self or others and not psychotic. May have experienced hallucinations d/t drug action and sleep disturbances. History of Present Illness Reason for Consult : Pt was noted to be hallucinating and talking to unseen specters at night last night. HPI : Pt is admitted for PNA and gen weakness. Pt has multiple medical issues. Pt denies any past psych hx, hallucinations, SI, HI and says his mood is normal, feels a little anxious about his hospital course and outcomes but to a reasonable extent. Pt does not feel overwhelmed. Admits to having poor appetite of late and doesn't know the reason for it. Pt thinks that because he got morphine last night it threw him for a loop. He remembers watching TV and then having a conversation with a nurse and maybe someone on TV. He thinks it was the drugs and the lack of sleep causing it. He remembers something similar in the past when being medicated with morphine something like this happening. Past Psychiatric History : Denies. Past Medical History : See medical chart. Lengthy medical hx. Social History : Lives at home. Assessment/Diagnosis/Plan Reviewed: Consults, Care Plan, Medications LETICIA MORELAND MD Oct 09, 2024 11:38
--- NOTE | 2024-10-09 12:55 | DVHPN2 ---
Subjective The patient is seen and examined at bedside. No change overnight. Remained shortness for breath. The patient also complained of being very tired Reviewed: Care Plan, H&P, Labs Changes from previous H/P or p: No Changes Eyes: No Pain, No Vision change, No Conjunctivae inflammation, No Eyelid inflammation, No Other, No Redness ENT: No Ear pain, No Ear discharge, No Nose pain, No Nose discharge, No Nose congestion, No Mouth pain, No Mouth swelling, No Throat pain, No Throat swelling, No Other Cardiovascular: No Chest Pain, No Palpitations, No Orthopnea, No Paroxysmal Noc. Dyspnea, No Edema, No Lt Headedness, No Other Respiratory: No Cough, No Dry; Shortness of breath, SOB with excertion; No Wheezing, No Hemoptysis, No Pleuritic Pain, No Sputum; Other (SOB at rest) Gastrointestinal: Nausea; No Vomiting, No Abdominal Pain, No Diarrhea; C onstipation; No Melena, No Hematochezia; Other (Poor appetite) Genitourinary: No Dysuria, No Frequency, No Incontinence, No Hematuria, No Retention, No Other Musculoskeletal: No other, No neck pain, No shoulder pain, No arm pain, No back pain, No hand pain, No leg pain, No foot pain Skin: No Rash, No Lesions, No Jaundice, No Bruising, No Other Objective Vitals Vital Signs Date Time Temp Pulse Resp B/P (MAP) Pulse Ox O2 Delivery O2 Flow Rate FiO2 10/09/24 12:28 97.9 97 18 167/52 (90) 98 97.9 10/09/24 09:52 Room Air* 0 21 Intake/Output Intake and Output 10/09/24 07:00 Intake Total 812 ml Output Total 1900 ml Balance -1088 ml Intake Oral 268 ml IV Total 544 ml Output Urine Total 1900 ml General Appearance: Alert, Oriented X3, Cooperative, mild distress HEENT: Atraumatic, PERRLA Lungs: Clear to auscultation, Other (Decreased breath sounds at bases. Nasal cannula at 1 L per) Cardiovascular: Normal S1, Normal S2 Abdomen: Normal bowel sounds Genitourinary: No Apparent Abnormalities Musculoskeletal: Normal sensory function, Normal motor function Neuro: Normal speech, Cranial nerves 3-12 NL Skin: Wounds (See nurse notes and pictures) Psych/Mental Status: Mental status NL, Mood NL Medications Current Medications Medications Dose Ordered Sig/Cathy Route Start Time Stop Time Status Last Admin Dose Admin Albuterol 2.5 mg Q4HPRN PRN NEB 09/10/24 06:30 09/22/24 02:04 2.5 MG Ipratropium [place] 0.5 mg Q4HPRN PRN NEB 09/10/24 06:30 09/22/24 02:04 0.5 MG Vancomycin HCl 0 ml @ 0 mls/hr UD IV 09/10/24 06:30 Cancel Ondansetron HCl 4 mg Q4HP PRN IV 09/10/24 06:30 10/08/24 19:52 4 MG Docusate Sodium 100 mg BIDPRN PRN PO 09/10/24 06:30 09/11/24 09:53 100 MG Acetaminophen 650 mg Q6HP PRN PO 09/10/24 06:30 09/30/24 00:01 650 MG Nitroglycerin 0.4 mg Q5MINP PRN SL 09/10/24 06:30 Enoxaparin Sodium 70 mg Q12HR SC 09/13/24 22:00 UNV Enteral Nutritional Formula 240 ml TIDWM PO 09/16/24 18:00 10/09/24 08:00 240 ML Albuterol 2.5 mg Q4HWA NEB 09/17/24 18:00 10/09/24 09:52 2.5 MG Ipratropium [place] 0.5 mg Q4HWA NEB 09/17/24 18:00 10/09/24 09:52 0.5 MG Melatonin 10 mg QHSP PRN PO 09/20/24 15:15 10/08/24 23:16 10 MG Potassium Chloride 10 meq DAILY PO 09/23/24 10:00 10/09/24 10:33 10 MEQ Enalaprilat 1.25 mg Q6HP PRN IV 09/22/24 13:00 Apixaban 5 mg BID PO 09/23/24 22:00 10/09/24 10:00 5 MG Vancomycin HCl 0 ml @ 0 mls/hr UD IV 09/29/24 23:15 Cancel Sodium Chloride 10 ml QSHIFT@10,22 IV 09/30/24 22:00 10/09/24 10:00 10 ML Acetaminophen 650 mg UD PO 10/01/24 16:15 Cancel Diphenhydramine HCl 25 mg UD IV 10/01/24 16:15 Cancel Morphine Sulfate 1 mg Q4HP PRN IV 10/01/24 23:15 10/08/24 10:32 1 MG Voriconazole 220 mg/Dextrose 272 ml @ 136 mls/hr Q12H IV 10/04/24 15:00 10/09/24 03:26 136 MLS/HR Acetaminophen/ Hydrocodone Bitart 1 tab Q4HPRN PRN PO 10/04/24 10:45 10/09/24 03:34 1 TAB Vancomycin HCl 250 ml @ 250 mls/hr Q18H IV 10/05/24 05:00 Cancel Trimethoprim/ Sulfamethoxazole 1 tab Q12HR PO 10/04/24 22:00 10/08/24 21:49 1 TAB Furosemide 20 mg DAILY PO 10/07/24 10:00 10/09/24 10:35 20 MG Laboratory Results Laboratory Tests 10/06/24 08:29 10/09/24 06:21 Urinalysis Test 09/14/24 08:00 09/30/24 06:15 Urine Osmolality 405 mOsm/kg Urine Creatinine 40.31 mg/dL (30.0-125.0) Urine Protein/Creatinine Ratio 0.54 Urine Sodium 24 mmol/L (40-220) L Urine Total Protein 21.7 mg/dL (1-14) H Urine Color Yellow (Yellow) Urine Clarity Turbid (Clear) H Urine pH 7.0 (5.0-9.0) Urine Specific [place] 1.032 (1.001-1.035) Urine Protein 1+ (Negative) H Urine Ketones Negative (Negative) Urine Blood 1+ /uL (Negative) H Urine Nitrite Negative (Negative) Urine Bilirubin Negative (Negative) Urine Urobilinogen 12 mg/dL (Negative) H Urine Leukocyte Esterase Negative /uL (Negative) Urine RBC 30 /hpf (0 - 3) Urine WBC 9 /hpf (0 - 3) Urine Squamous Epithelial Cells Few /hpf (<5) Urine Bacteria None seen /hpf (None Seen) Urine Hyaline Casts Many /lpf (0 - 2) Urine Mucus Few (None Seen) Urine Glucose Normal mg/dL (Normal) Microbiology Microbiology Date/Time Source Procedure Growth Status 09/30/24 06:15 Voided Urine Urine Culture - Final Complete 09/29/24 10:55 Blood Blood Culture - Final NO GROWTH AFTER 5 DAYS OF INCUBATION. 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 Continuing with IV antibiotic. Continuing with Eliquis. Continuing with Diet with supplement. Continuing with nebulizer. We will monitor platelets. Encouraged the patient to work with physical therapy. The patient is still not ambulate. Continuing with Vfend and Bactrim. This medical document was created using an electronic medical record system with [employer] direct computerized dictation system. Although this document has been carefully reviewed, there may still be some phonetic and typographical errors. These areas are purely typographical due to imperfections of the software programs, and do not reflect any compromise in the patient's medical care. Plan discussed with: Patient Date of Service: Oct 09, 2024 Billing Provider: SHIRLEY ANGUIANO MD Common Visit Codes: [id number] INP/OBS CARE(HIGH) SHIRLEY ANGUIANO MD Oct 09, 2024 12:55
[2024-10-09 16:13] LABS: Base Excess 2.5 mmol/L (-2.0-3.0)
--- NOTE | 2024-10-09 20:51 | DVHPN2 ---
Progress Note - Dictate Date Seen: Oct 09, 2024 Medical Necessity Reason Pt with a Central, PICC or Fol: Yes The following are medically ne: Lara Catheter Reason for lara catheter: Strict I&O Subjective Patient seen and examined at bedside. Remains on supplemental oxygen Overnight events reviewed. vital signs Vital Sign Date Time Temp Pulse Resp B/P (MAP) Pulse Ox O2 Delivery O2 Flow Rate FiO2 10/09/24 18:45 87 18 100 10/09/24 18:35 Nasal Cannula* 2 28 10/09/24 16:57 98.0 101/47 (65) 98.0 Total Intake and Output 10/08/24 10/08/24 10/09/24 15:00 23:00 07:00 Intake Total 390 ml 422 ml 272 ml Output Total 1450 ml 450 ml Balance 390 ml -1028 ml -178 ml medications Current Medications Medications Dose Ordered Sig/Cathy Route Start Time Stop Time Status Last Admin Dose Admin Albuterol 2.5 mg Q4HPRN PRN NEB 09/10/24 06:30 09/22/24 02:04 2.5 MG Ipratropium [place] 0.5 mg Q4HPRN PRN NEB 09/10/24 06:30 09/22/24 02:04 0.5 MG Vancomycin HCl 0 ml @ 0 mls/hr UD IV 09/10/24 06:30 Cancel Ondansetron HCl 4 mg Q4HP PRN IV 09/10/24 06:30 10/08/24 19:52 4 MG Docusate Sodium 100 mg BIDPRN PRN PO 09/10/24 06:30 09/11/24 09:53 100 MG Acetaminophen 650 mg Q6HP PRN PO 09/10/24 06:30 09/30/24 00:01 650 MG Nitroglycerin 0.4 mg Q5MINP PRN SL 09/10/24 06:30 Enoxaparin Sodium 70 mg Q12HR SC 09/13/24 22:00 UNV Enteral Nutritional Formula 240 ml TIDWM PO 09/16/24 18:00 10/09/24 18:00 240 ML Albuterol 2.5 mg Q4HWA NEB 09/17/24 18:00 10/09/24 18:35 2.5 MG Ipratropium [place] 0.5 mg Q4HWA NEB 09/17/24 18:00 12/8/24 18:35 0.5 MG Melatonin 10 mg QHSP PRN PO 09/20/24 15:15 10/08/24 23:16 10 MG Potassium Chloride 10 meq DAILY PO 09/23/24 10:00 10/09/24 10:33 10 MEQ Enalaprilat 1.25 mg Q6HP PRN IV 09/22/24 13:00 Apixaban 5 mg BID PO 09/23/24 22:00 10/09/24 10:00 5 MG Vancomycin HCl 0 ml @ 0 mls/hr UD IV 09/29/24 23:15 Cancel Sodium Chloride 10 ml QSHIFT@10,22 IV 09/30/24 22:00 10/09/24 10:00 10 ML Acetaminophen 650 mg UD PO 10/01/24 16:15 Cancel Diphenhydramine HCl 25 mg UD IV 10/01/24 16:15 Cancel Morphine Sulfate 1 mg Q4HP PRN IV 10/01/24 23:15 10/08/24 10:32 1 MG Voriconazole 220 mg/Dextrose 272 ml @ 136 mls/hr Q12H IV 10/04/24 15:00 10/09/24 15:00 136 MLS/HR Acetaminophen/ Hydrocodone Bitart 1 tab Q4HPRN PRN PO 10/04/24 10:45 10/09/24 03:34 1 TAB Vancomycin HCl 250 ml @ 250 mls/hr Q18H IV 10/05/24 05:00 Cancel Trimethoprim/ Sulfamethoxazole 1 tab Q12HR PO 10/04/24 22:00 10/09/24 10:35 1 TAB Furosemide 20 mg DAILY PO 10/07/24 10:00 10/09/24 10:35 20 MG objective Gen.: Patient lying in bed in no apparent distress. On supplemental oxygen. Head: Normocephalic, atraumatic. Eyes: EOMI/PERRLA. Ears: Normal hearing. Normal anatomy. Neck/trachea: Trachea midline, supple. Nose: Normal external anatomy. Mouth: Moist mucous membranes. Chest: Decreased air entry bilaterally. No wheezing or rhonchi. Positive crackles. Cardiovascular: Positive S1, positive S2. Regular rate and rhythm. Abdomen: Positive bowel sounds in all 4 quadrants. Soft, non-tender, non- distended. : Deferred. Rectal: Deferred. Skin: Warm, dry. Intact. Extremities: 2+ radial pulses bilaterally. No lower extremity edema. Neuro: Awake, alert, oriented x3. No gross motor or sensory deficits. Cranial nerves II through XII intact. Gait not assessed. laboratory and microbiology Laboratory Tests 10/09/24 06:21 10/06/24 08:29 Test 10/06/24 08:29 Range/Units Serum Glucose 99 74-106 mg/dL Assessment/Plan Impression: Acute hypoxic respiratory failure Pneumonia COPD Emphysema, paraseptal and centrilobular Fibroid atelectatic opacities in the right middle lobe, lingula and bilateral lower lobes. Calcified pleural plaques in the right upper lobe and posterior aspects of the lower lobes bilaterally Pleural effusions, Atelectasis Hyponatremia Events: Remains on supplemental O2 at 2 LPM NC. Taper O2 as tolerated ABG reviewed, compensated. PaO2 of 57.5 mmHg. WBC within normal limits. Incentive spirometry Continue bronchodilators NTS PRN. Continue antibiotics - Bactrim Continue antifungal Eliquis BID. Pain control Avoid oversedation Monitor wbc Monitor platelet count. Wound care Head of bed elevation Aspiration precautions Continue PT. Lara d/t urinary retention. HERSON resolved after Lara placement - HERSON likely due to urine retention. Diurese w/ Lasix as tolerated Monitor renal function Maintain euvolemia Awaiting placement Disposition per hospitalist. Labs and imaging reviewed. Rest of plan as noted below. Plan: Supplemental oxygen Keep O2 saturation above 92% CT chest report and images reviewed. Emphysematous changes. Fibro atelectatic opacity in the right middle lobe, lingula and bilateral lower lobes. Calcified plaques in the right upper and bilateral lower lobes and posteriorly. Minimal pleural effusions and atelectasis. Antibiotics. Monitor WBC count. Blood cultures show no growth. Continue bronchodilators as needed. Pain control. Avoid over-sedation. Incentive spirometry. IV fluids at 60 mL an hour. Maintain euvolemia Monitor renal function. Monitor electrolytes. Supplement as necessary. Hyponatremia - Monitor sodium DVT prophylaxis -Eliquis Prognosis: Guarded given multiple comorbidities. Rest of plan per hospitalist and other consultants. Thank you Dr. Reed for allowing me to participate in this patient's care. Further recommendations will depend on patient's clinical course. Please do not hesitate to contact me if you have any questions or concerns. This medical document was created using an electronic medical record system with [employer] dictation system. Although this document has been carefully reviewed, there may still be some phonetic and typographical errors. These areas are purely typographical due to imperfections of the software programs, and do not reflect any compromise in the patient's medical care. Dietary Evaluation Review Comments: 1) Consider SORAIDA 1 pkt BID for wounds 2) Continue current plan of care Expected Outcomes/Goals: F/U in 3-5 days Interpretation of weight loss: up to 20% in 1 year Plan discussed with: Patient, Other (RN) TORITO URBAN MD Oct 09, 2024 20:51
[2024-10-10] VITALS (18 sets, daily range): BP systolic 95–158; BP diastolic 46–62; PULSE 78–101; RESP 2–20; TEMP 97.9–98; O2SAT 92–100
--- NOTE | 2024-10-10 15:48 | DVHPN2 ---
Subjective Patient was states that he feels better. Reviewed: Care Plan, H&P, Labs Changes from previous H/P or p: No Changes General: Per HPI Eyes: No Pain, No Vision change, No Conjunctivae inflammation, No Eyelid inflammation, No Other, No Redness ENT: No Ear pain, No Ear discharge, No Nose pain, No Nose discharge, No Nose congestion, No Mouth pain, No Mouth swelling, No Throat pain, No Throat swelling, No Other Cardiovascular: No Chest Pain, No Palpitations, No Orthopnea, No Paroxysmal Noc. Dyspnea, No Edema, No Lt Headedness, No Other Respiratory: No Cough, No Dry; Shortness of breath, SOB with excertion; No Wheezing, No Hemoptysis, No Pleuritic Pain, No Sputum; Other (SOB at rest) Gastrointestinal: Nausea; No Vomiting, No Abdominal Pain, No Diarrhea; C onstipation; No Melena, No Hematochezia; Other (Poor appetite) Genitourinary: No Dysuria, No Frequency, No Incontinence, No Hematuria, No Retention, No Other Musculoskeletal: No other, No neck pain, No shoulder pain, No arm pain, No back pain, No hand pain, No leg pain, No foot pain Skin: No Rash, No Lesions, No Jaundice, No Bruising, No Other Objective Vitals Vital Signs Date Time Temp Pulse Resp B/P (MAP) Pulse Ox O2 Delivery O2 Flow Rate FiO2 10/10/24 14:12 95 16 100 10/10/24 14:05 Nasal Cannula* 1 24 10/10/24 13:00 97.9 130/53 (78) 97.9 Intake/Output Intake and Output 10/10/24 07:00 Intake Total 1030 ml Output Total 1950 ml Balance -920 ml Intake Oral 1030 ml Output Urine Total 1950 ml General Appearance: Alert, Oriented X3, Cooperative, mild distress HEENT: Atraumatic, PERRLA Lungs: Clear to auscultation, Other (Decreased breath sounds at bases. Nasal cannula at 1 L per) Cardiovascular: Normal S1, Normal S2 Abdomen: Normal bowel sounds Genitourinary: No Apparent Abnormalities Musculoskeletal: Normal sensory function, Normal motor function Neuro: Normal speech, Cranial nerves 3-12 NL Skin: Wounds (See nurse notes and pictures), Other (Sacral wound assessed.) Psych/Mental Status: Mental status NL, Mood NL Medications Current Medications Medications Dose Ordered Sig/Cathy Route Start Time Stop Time Status Last Admin Dose Admin Albuterol 2.5 mg Q4HPRN PRN NEB 09/10/24 06:30 09/22/24 02:04 2.5 MG Ipratropium [place] 0.5 mg Q4HPRN PRN NEB 09/10/24 06:30 09/22/24 02:04 0.5 MG Vancomycin HCl 0 ml @ 0 mls/hr UD IV 09/10/24 06:30 Cancel Ondansetron HCl 4 mg Q4HP PRN IV 09/10/24 06:30 10/08/24 19:52 4 MG Docusate Sodium 100 mg BIDPRN PRN PO 09/10/24 06:30 09/11/24 09:53 100 MG Acetaminophen 650 mg Q6HP PRN PO 09/10/24 06:30 09/30/24 00:01 650 MG Nitroglycerin 0.4 mg Q5MINP PRN SL 09/10/24 06:30 Enoxaparin Sodium 70 mg Q12HR SC 09/13/24 22:00 UNV Enteral Nutritional Formula 240 ml TIDWM PO 09/16/24 18:00 10/10/24 15:16 240 ML Albuterol 2.5 mg Q4HWA NEB 09/17/24 18:00 10/10/24 14:05 2.5 MG Ipratropium [place] 0.5 mg Q4HWA NEB 09/17/24 18:00 10/10/24 14:05 0.5 MG Melatonin 10 mg QHSP PRN PO 09/20/24 15:15 10/08/24 23:16 10 MG Potassium Chloride 10 meq DAILY PO 09/23/24 10:00 10/09/24 10:33 10 MEQ Enalaprilat 1.25 mg Q6HP PRN IV 09/22/24 13:00 Apixaban 5 mg BID PO 09/23/24 22:00 10/10/24 11:23 5 MG Vancomycin HCl 0 ml @ 0 mls/hr UD IV 09/29/24 23:15 Cancel Sodium Chloride 10 ml QSHIFT@10,22 IV 09/30/24 22:00 10/10/24 11:24 10 ML Acetaminophen 650 mg UD PO 10/01/24 16:15 Cancel Diphenhydramine HCl 25 mg UD IV 10/01/24 16:15 Cancel Morphine Sulfate 1 mg Q4HP PRN IV 10/01/24 23:15 10/08/24 10:32 1 MG Voriconazole 220 mg/Dextrose 272 ml @ 136 mls/hr Q12H IV 10/04/24 15:00 10/10/24 15:15 136 MLS/HR Acetaminophen/ Hydrocodone Bitart 1 tab Q4HPRN PRN PO 10/04/24 10:45 10/10/24 01:49 1 TAB Vancomycin HCl 250 ml @ 250 mls/hr Q18H IV 10/05/24 05:00 Cancel Trimethoprim/ Sulfamethoxazole 1 tab Q12HR PO 10/04/24 22:00 10/10/24 11:24 1 TAB Furosemide 20 mg DAILY PO 10/07/24 10:00 10/10/24 11:23 20 MG Laboratory Results Laboratory Tests 10/06/24 08:29 10/09/24 06:21 Urinalysis Test 09/14/24 08:00 09/30/24 06:15 Urine Osmolality 405 mOsm/kg Urine Creatinine 40.31 mg/dL (30.0-125.0) Urine Protein/Creatinine Ratio 0.54 Urine Sodium 24 mmol/L (40-220) L Urine Total Protein 21.7 mg/dL (1-14) H Urine Color Yellow (Yellow) Urine Clarity Turbid (Clear) H Urine pH 7.0 (5.0-9.0) Urine Specific [place] 1.032 (1.001-1.035) Urine Protein 1+ (Negative) H Urine Ketones Negative (Negative) Urine Blood 1+ /uL (Negative) H Urine Nitrite Negative (Negative) Urine Bilirubin Negative (Negative) Urine Urobilinogen 12 mg/dL (Negative) H Urine Leukocyte Esterase Negative /uL (Negative) Urine RBC 30 /hpf (0 - 3) Urine WBC 9 /hpf (0 - 3) Urine Squamous Epithelial Cells Few /hpf (<5) Urine Bacteria None seen /hpf (None Seen) Urine Hyaline Casts Many /lpf (0 - 2) Urine Mucus Few (None Seen) Urine Glucose Normal mg/dL (Normal) Blood Gas Results Test 10/09/24 16:03 Arterial Blood pH 7.440 (7.350-7.450) FiO2 % 21.0 Microbiology Microbiology Date/Time Source Procedure Growth Status 09/30/24 06:15 Voided Urine Urine Culture - Final Complete 09/29/24 10:55 Blood Blood Culture - Final NO GROWTH AFTER 5 DAYS OF INCUBATION. Complete 09/16/24 20:50 Sputum Gram Stain - Final Complete 09/16/24 20:50 Respiratory Culture - Final Presumptive Desirae albicans Complete 09/13/24 09:50 Nose MRSA Screen - Final Complete Labs and/or images reviewed: Labs reviewed by me, Image(s) reviewed by me Assessment/Plan Assessment/Plan Plan: -sepsis -pneumonia -necrotizing lymph node -bullous emphysema -acute hypoxic respiratory failure -nicotine dependence -atelectasis -hyponatremia -pulmonary mass, rule out CA -DVT to cephalic vein -Deep tissue injury to coccyx -cachexia Plan: Events: Patient reports that he was ambulating outside the room. Sacral wound reviewed. Given the patient's advanced pulmonary disease, we will recommend continued wound care management. -continue Eliquis -ID consultation : Recommendations reviewed. Patient now on p.o. VFend and Bactrim. -pulmonary consultation : Recommendations reviewed -bronchodilators -PUD, DVT prophylaxis -discussed case with nursing home social worker. Please assist with establishing discharge plan given his needs post hospitalization. Total time spent with patient discussing and formulating plan of care: 35 minutes. This medical document was created using an electronic medical record system with [employer] [place] [employer] dictation system. Although this document has been carefully reviewed, there may still be some phonetic and typographical errors. These areas are purely typographical due to imperfections of the software programs, and do not reflect any compromise in the patient's medical care. Plan discussed with: Patient, Other (RN) Date of Service: Oct 10, 2024 Billing Provider: KYUNG KENDRICK NP Common Visit Codes: [id number] INP/OBS CARE(HIGH) KYUNG KENDRICK NP Oct 10, 2024 15:48
--- NOTE | 2024-10-10 18:52 | DVHPN2 ---
Progress Note - Dictate Date Seen: Oct 10, 2024 Medical Necessity Reason Pt with a Central, PICC or Fol: Yes The following are medically ne: Lara Catheter Reason for lara catheter: Strict I&O Subjective Patient seen and examined at bedside. Remains on supplemental oxygen Overnight events reviewed. vital signs Vital Sign Date Time Temp Pulse Resp B/P (MAP) Pulse Ox O2 Delivery O2 Flow Rate FiO2 10/10/24 17:00 97.9 99 19 121/62 (81) 94 97.9 10/10/24 14:05 Nasal Cannula* 1 24 Total Intake and Output 10/09/24 10/09/24 10/10/24 15:00 23:00 07:00 Intake Total 760 ml 270 ml Output Total 1850 ml 100 ml Balance -1090 ml 170 ml medications Current Medications Medications Dose Ordered Sig/Cathy Route Start Time Stop Time Status Last Admin Dose Admin Albuterol 2.5 mg Q4HPRN PRN NEB 09/10/24 06:30 09/22/24 02:04 2.5 MG Ipratropium [place] 0.5 mg Q4HPRN PRN NEB 09/10/24 06:30 09/22/24 02:04 0.5 MG Vancomycin HCl 0 ml @ 0 mls/hr UD IV 09/10/24 06:30 Cancel Ondansetron HCl 4 mg Q4HP PRN IV 09/10/24 06:30 10/08/24 19:52 4 MG Docusate Sodium 100 mg BIDPRN PRN PO 09/10/24 06:30 09/11/24 09:53 100 MG Acetaminophen 650 mg Q6HP PRN PO 09/10/24 06:30 09/30/24 00:01 650 MG Nitroglycerin 0.4 mg Q5MINP PRN SL 09/10/24 06:30 Enoxaparin Sodium 70 mg Q12HR SC 09/13/24 22:00 UNV Enteral Nutritional Formula 240 ml TIDWM PO 09/16/24 18:00 10/10/24 18:38 240 ML Albuterol 2.5 mg Q4HWA NEB 09/17/24 18:00 10/10/24 14:05 2.5 MG Ipratropium [place] 0.5 mg Q4HWA NEB 09/17/24 18:00 10/10/24 14:05 0.5 MG Melatonin 10 mg QHSP PRN PO 09/20/24 15:15 10/08/24 23:16 10 MG Enalaprilat 1.25 mg Q6HP PRN IV 09/22/24 13:00 Apixaban 5 mg BID PO 09/23/24 22:00 10/10/24 11:23 5 MG Vancomycin HCl 0 ml @ 0 mls/hr UD IV 09/29/24 23:15 Cancel Sodium Chloride 10 ml QSHIFT@10,22 IV 09/30/24 22:00 10/10/24 11:24 10 ML Acetaminophen 650 mg UD PO 10/01/24 16:15 Cancel Diphenhydramine HCl 25 mg UD IV 10/01/24 16:15 Cancel Morphine Sulfate 1 mg Q4HP PRN IV 10/01/24 23:15 10/08/24 10:32 1 MG Voriconazole 220 mg/Dextrose 272 ml @ 136 mls/hr Q12H IV 10/04/24 15:00 10/10/24 15:15 136 MLS/HR Acetaminophen/ Hydrocodone Bitart 1 tab Q4HPRN PRN PO 10/04/24 10:45 10/10/24 01:49 1 TAB Vancomycin HCl 250 ml @ 250 mls/hr Q18H IV 10/05/24 05:00 Cancel Trimethoprim/ Sulfamethoxazole 1 tab Q12HR PO 10/04/24 22:00 10/10/24 11:24 1 TAB Furosemide 20 mg DAILY PO 10/07/24 10:00 10/10/24 11:23 20 MG objective Gen.: Patient lying in bed in no apparent distress. On supplemental oxygen. Head: Normocephalic, atraumatic. Eyes: EOMI/PERRLA. Ears: Normal hearing. Normal anatomy. Neck/trachea: Trachea midline, supple. Nose: Normal external anatomy. Mouth: Moist mucous membranes. Chest: Decreased air entry bilaterally. No wheezing or rhonchi. Positive crackles. Cardiovascular: Positive S1, positive S2. Regular rate and rhythm. Abdomen: Positive bowel sounds in all 4 quadrants. Soft, non-tender, non- distended. : Deferred. Rectal: Deferred. Skin: Warm, dry. Intact. Extremities: 2+ radial pulses bilaterally. No lower extremity edema. Neuro: Awake, alert, oriented x3. No gross motor or sensory deficits. Cranial nerves II through XII intact. Gait not assessed. laboratory and microbiology Laboratory Tests 10/09/24 06:21 10/06/24 08:29 Test 10/06/24 08:29 Range/Units Serum Glucose 99 74-106 mg/dL Assessment/Plan Impression: Acute hypoxic respiratory failure Pneumonia COPD Emphysema, paraseptal and centrilobular Fibroid atelectatic opacities in the right middle lobe, lingula and bilateral lower lobes. Calcified pleural plaques in the right upper lobe and posterior aspects of the lower lobes bilaterally Pleural effusions, Atelectasis Hyponatremia Events: Remains on supplemental O2 at 2 LPM NC. Taper O2 as tolerated WBC within normal limits. Incentive spirometry Continue bronchodilators NTS PRN. Continue antibiotics - Bactrim Continue antifungal Eliquis BID. Pain control Avoid oversedation Monitor platelet count. Wound care Head of bed elevation Aspiration precautions Continue PT. Lara d/t urinary retention. HERSON resolved after Lara placement - HERSON likely due to urine retention. Diurese w/ Lasix as tolerated Monitor renal function Maintain euvolemia Awaiting LTAC placement Disposition per hospitalist. Labs and imaging reviewed. Rest of plan as noted below. Plan: Supplemental oxygen Keep O2 saturation above 92% CT chest report and images reviewed. Emphysematous changes. Fibro atelectatic opacity in the right middle lobe, lingula and bilateral lower lobes. Calcified plaques in the right upper and bilateral lower lobes and posteriorly. Minimal pleural effusions and atelectasis. Antibiotics. Monitor WBC count. Blood cultures show no growth. Continue bronchodilators as needed. Pain control. Avoid over-sedation. Incentive spirometry. IV fluids at 60 mL an hour. Maintain euvolemia Monitor renal function. Monitor electrolytes. Supplement as necessary. Hyponatremia - Monitor sodium DVT prophylaxis -Eliquis Prognosis: Guarded given multiple comorbidities. Rest of plan per hospitalist and other consultants. Thank you Dr. Reed for allowing me to participate in this patient's care. Further recommendations will depend on patient's clinical course. Please do not hesitate to contact me if you have any questions or concerns. This medical document was created using an electronic medical record system with [employer] system. Although this document has been carefully reviewed, there may still be some phonetic and typographical errors. These areas are purely typographical due to imperfections of the software programs, and do not reflect any compromise in the patient's medical care. Dietary Evaluation Review Comments: 1) Consider SORAIDA 1 pkt BID for wounds 2) Continue current plan of care Expected Outcomes/Goals: F/U in 3-5 days Interpretation of weight loss: up to 20% in 1 year Plan discussed with: Patient, Other (JEANNINE Keith) TORITO URBAN MD Oct 10, 2024 18:52
--- NOTE | 2024-10-10 21:29 | DVHPN2 ---
Consult Progress Note Date Seen: Oct 09, 2024 Subjective Patient reports: Feels better (no fever or chills) Objective vital signs Vital Sign Date Time Temp Pulse Resp B/P (MAP) Pulse Ox O2 Delivery O2 Flow Rate FiO2 10/10/24 19:16 100 20 100 10/10/24 19:08 Nasal Cannula 1.0 10/10/24 19:08 24 10/10/24 17:00 97.9 121/62 (81) 97.9 Total Intake and Output 10/09/24 10/09/24 10/10/24 15:00 23:00 07:00 Intake Total 760 ml 270 ml Output Total 1850 ml 100 ml Balance -1090 ml 170 ml medications Current Medications Medications Dose Ordered Sig/Cathy Route Start Time Stop Time Status Last Admin Dose Admin Albuterol 2.5 mg Q4HPRN PRN NEB 09/10/24 06:30 09/22/24 02:04 2.5 MG Ipratropium [place] 0.5 mg Q4HPRN PRN NEB 09/10/24 06:30 09/22/24 02:04 0.5 MG Vancomycin HCl 0 ml @ 0 mls/hr UD IV 09/10/24 06:30 Cancel Ondansetron HCl 4 mg Q4HP PRN IV 09/10/24 06:30 10/08/24 19:52 4 MG Docusate Sodium 100 mg BIDPRN PRN PO 09/10/24 06:30 09/11/24 09:53 100 MG Acetaminophen 650 mg Q6HP PRN PO 09/10/24 06:30 09/30/24 00:01 650 MG Nitroglycerin 0.4 mg Q5MINP PRN SL 09/10/24 06:30 Enoxaparin Sodium 70 mg Q12HR SC 09/13/24 22:00 UNV Enteral Nutritional Formula 240 ml TIDWM PO 09/16/24 18:00 10/10/24 18:38 240 ML Albuterol 2.5 mg Q4HWA NEB 09/17/24 18:00 10/10/24 19:08 2.5 MG Ipratropium [place] 0.5 mg Q4HWA NEB 09/17/24 18:00 10/10/24 19:08 0.5 MG Melatonin 10 mg QHSP PRN PO 09/20/24 15:15 10/10/24 20:32 10 MG Enalaprilat 1.25 mg Q6HP PRN IV 09/22/24 13:00 Apixaban 5 mg BID PO 09/23/24 22:00 10/10/24 11:23 5 MG Vancomycin HCl 0 ml @ 0 mls/hr UD IV 09/29/24 23:15 Cancel Sodium Chloride 10 ml QSHIFT@10,22 IV 09/30/24 22:00 10/10/24 11:24 10 ML Acetaminophen 650 mg UD PO 10/01/24 16:15 Cancel Diphenhydramine HCl 25 mg UD IV 10/01/24 16:15 Cancel Morphine Sulfate 1 mg Q4HP PRN IV 10/01/24 23:15 10/08/24 10:32 1 MG Voriconazole 220 mg/Dextrose 272 ml @ 136 mls/hr Q12H IV 10/04/24 15:00 10/10/24 15:15 136 MLS/HR Acetaminophen/ Hydrocodone Bitart 1 tab Q4HPRN PRN PO 10/04/24 10:45 10/10/24 01:49 1 TAB Vancomycin HCl 250 ml @ 250 mls/hr Q18H IV 10/05/24 05:00 Cancel Trimethoprim/ Sulfamethoxazole 1 tab Q12HR PO 10/04/24 22:00 10/10/24 11:24 1 TAB Furosemide 20 mg DAILY PO 10/07/24 10:00 10/10/24 11:23 20 MG PHYSICAL EXAM: - GENERAL: Alert and oriented x 3. No acute distress. Well-nourished. ? - EYES: EOMI. Anicteric. ?- HENT: Moist mucous membranes. No scleral icterus. No cervical lymphadenopathy. ?- LUNGS: Clear to auscultation bilaterally. No accessory muscle use.? - CARDIOVASCULAR: Regular rate and rhythm. No murmur. No JVD.? - ABDOMEN: Soft, non-tender and non-distended. No palpable masses.? - EXTREMITIES: No edema. Non-tender.?SKIN: No rashes or lesions. Warm. ? - NEUROLOGIC: No focal neurological deficits. CN II-XII grossly intact, but not individually tested.? - PSYCHIATRIC: Cooperative. Appropriate mood and affect. laboratory and microbiology Laboratory Tests 12/8/24 06:21 10/06/24 08:29 Test 10/06/24 08:29 Range/Units Serum Glucose 99 74-106 mg/dL Problem List/Assessment/Plan Problem List/Assessment/Plan ID Problem List: -- Generalized weakness -- Fall with head injury -- Multifocal pneumonia -- Leukocytosis -- COPD exacerbation -- Hyponatremia -- Stage 2 sacral ulcers -- Tobacco use disorder Assessment This is a 79 y.o. male with a past medical history of asthma, COPD, and depression, who presents with generalized weakness and a fall resulting in a forehead abrasion. He has been experiencing loss of appetite, no bowel movements, and shortness of breath. Laboratory findings show leukocytosis with a WBC count of 35.6??10?/L, thrombocytosis with platelets at 539??10?/L, hyponatremia with sodium at 120?mmol/L, BUN of 22?mg/dL, creatinine of 0.6?mg/dL, glucose of 102?mg/dL, lactic acid of 1.5?mmol/L, and hemoglobin of 13.7?g/dL. CT head showed no acute abnormality. Chest CT revealed thyromegaly and extensive alveolar and parenchymal infiltrates in both lungs, seen in the right middle lobe, lingula, and both lower lobes. He was started empirically on vancomycin and ceftriaxone; azithromycin was later added. The patient has stage 2 sacral ulcers, non-purulent and non-eroded. 09/13: On imaging his doppler lower extemity ultrasound shows a nonocclusive thrombo scene in the proximal left superficial fomoral vein. CT of lungs which showed no pulmonary embolism. diffuse abnormal tissue density in posterior media steinum extened from the upper thorax to diaphragmatic hiatus with small air bubbles thats increased in size compared to last exam, which could represent nectrotic adenopathy abscess or esophageal injury or rupture. component on the left at the diaphragmatic hiatus is recommended , smoking related lung disease , patchy eclecticism consolidation. 09/14: white count remains elevated at 33. Dr choi from oncology saw patinet and suggent proliferative disorder is a possiblility but will asses after antibiotics, as well as consider a biopsy after a few weeks. MRSA nares came negative. 09/15: white count is slowing coming down and a backorder of levofloxacin 09/16: white count is slowly downtrending now at 28, 2 liters nasal canula 09/17: Patient was able to produce and induced sputum sample and so far results are with no growth 09/21: White count continues to downtrend now at 13 09/22: white count is 17.2 , chest xray shows stable mass like opacities in both lungs , had a biopsy done of a left pair of veterebral mass , 5 core biopsies were obtained 09/23: white count is elevated at 18 , chest x-ray showed stable mass capacities throughout both lungs, patient is negative for HIV 09/24: Chest xray shows plural classifications and airspace opacities appear to be similar to prior examination. stable blunting of constophrenic agles , appears overall stable but on more oxygen then what he came in with . getting bicarbonate greater than 40 09/25: white count is 10.3 , significant improvement fungal serolgies and quant tb is negative 09/30: white count is 14.9 , thrombocytosis is 872 , concerned that patient is still having an undiagnosed infection that is not being treated adequately. Fungal serologies have come back negative , Tp came back negative and patient is tolerating antibiotic treatments 10/01: nonspecific inflammation on lymph node biopsy 10/04: Tolerating voriconazole 10/05: responding to voriconazole 10/06: Patient is improving on therapy Plan: - recommend 2 weeks of voriconazole , can be transitioned to oral at the same dose he has currently EOT 10/16/24 - reccomend continuing oral bactrum 1 double strength tab 2x a day for 2 weeks EOT 10/16/24 - repeat sputum culture -- Implement wound care for stage 2 sacral ulcers. -- Monitor vital signs and oxygen saturation. Isolation Precautions: Standard Plan discussed with: Patient Dietary Evaluation Review Comments: 1) Consider SORAIDA 1 pkt BID for wounds 2) Continue current plan of care Expected Outcomes/Goals: F/U in 3-5 days Interpretation of weight loss: up to 20% in 1 year SHELBY OQUENDO MD Oct 10, 2024 21:29
--- NOTE | 2024-10-10 22:19 | DVHPN2 ---
Consult Progress Note Date Seen: Oct 10, 2024 Subjective Patient reports: Other (continues to endorse generalized weakness , mild shortness of breath and breathing well on room air ) Objective vital signs Vital Sign Date Time Temp Pulse Resp B/P (MAP) Pulse Ox O2 Delivery O2 Flow Rate FiO2 10/10/24 21:56 99 18 100 10/10/24 21:48 Nasal Cannula 1.0 10/10/24 21:48 24 10/10/24 17:00 97.9 121/62 (81) 97.9 Total Intake and Output 10/09/24 10/09/24 10/10/24 15:00 23:00 07:00 Intake Total 760 ml 270 ml Output Total 1850 ml 100 ml Balance -1090 ml 170 ml medications Current Medications Medications Dose Ordered Sig/Cathy Route Start Time Stop Time Status Last Admin Dose Admin Albuterol 2.5 mg Q4HPRN PRN NEB 09/10/24 06:30 09/22/24 02:04 2.5 MG Ipratropium [place] 0.5 mg Q4HPRN PRN NEB 09/10/24 06:30 09/22/24 02:04 0.5 MG Vancomycin HCl 0 ml @ 0 mls/hr UD IV 09/10/24 06:30 Cancel Ondansetron HCl 4 mg Q4HP PRN IV 09/10/24 06:30 10/08/24 19:52 4 MG Docusate Sodium 100 mg BIDPRN PRN PO 09/10/24 06:30 09/11/24 09:53 100 MG Acetaminophen 650 mg Q6HP PRN PO 09/10/24 06:30 09/30/24 00:01 650 MG Nitroglycerin 0.4 mg Q5MINP PRN SL 09/10/24 06:30 Enoxaparin Sodium 70 mg Q12HR SC 09/13/24 22:00 UNV Enteral Nutritional Formula 240 ml TIDWM PO 09/16/24 18:00 10/10/24 18:38 240 ML Albuterol 2.5 mg Q4HWA NEB 09/17/24 18:00 10/10/24 21:48 2.5 MG Ipratropium [place] 0.5 mg Q4HWA NEB 09/17/24 18:00 10/10/24 21:48 0.5 MG Melatonin 10 mg QHSP PRN PO 09/20/24 15:15 10/10/24 20:32 10 MG Enalaprilat 1.25 mg Q6HP PRN IV 09/22/24 13:00 Apixaban 5 mg BID PO 09/23/24 22:00 10/10/24 21:42 5 MG Vancomycin HCl 0 ml @ 0 mls/hr UD IV 09/29/24 23:15 Cancel Sodium Chloride 10 ml QSHIFT@10,22 IV 09/30/24 22:00 10/10/24 21:37 10 ML Acetaminophen 650 mg UD PO 10/01/24 16:15 Cancel Diphenhydramine HCl 25 mg UD IV 10/01/24 16:15 Cancel Morphine Sulfate 1 mg Q4HP PRN IV 10/01/24 23:15 10/08/24 10:32 1 MG Voriconazole 220 mg/Dextrose 272 ml @ 136 mls/hr Q12H IV 10/04/24 15:00 10/10/24 15:15 136 MLS/HR Acetaminophen/ Hydrocodone Bitart 1 tab Q4HPRN PRN PO 10/04/24 10:45 10/10/24 01:49 1 TAB Vancomycin HCl 250 ml @ 250 mls/hr Q18H IV 10/05/24 05:00 Cancel Trimethoprim/ Sulfamethoxazole 1 tab Q12HR PO 10/04/24 22:00 10/10/24 21:37 1 TAB Furosemide 20 mg DAILY PO 10/07/24 10:00 10/10/24 11:23 20 MG PHYSICAL EXAM: - GENERAL: Alert and oriented x 3. No acute distress. Well-nourished. ? - EYES: EOMI. Anicteric. ?- HENT: Moist mucous membranes. No scleral icterus. No cervical lymphadenopathy. ?- LUNGS: Clear to auscultation bilaterally. No accessory muscle use.? - CARDIOVASCULAR: Regular rate and rhythm. No murmur. No JVD.? - ABDOMEN: Soft, non-tender and non-distended. No palpable masses.? - EXTREMITIES: No edema. Non-tender.?SKIN: No rashes or lesions. Warm. ? - NEUROLOGIC: No focal neurological deficits. CN II-XII grossly intact, but not individually tested.? - PSYCHIATRIC: Cooperative. Appropriate mood and affect. laboratory and microbiology Laboratory Tests 10/09/24 06:21 10/06/24 08:29 Test 10/06/24 08:29 Range/Units Serum Glucose 99 74-106 mg/dL Problem List/Assessment/Plan Problems(with codes): (1) ASTHMA, CHRONIC OBSTRUCTIVE W ASTHMATICUS (2) COPD (chronic obstructive pulmonary disease) (3) SHORTNESS OF BREATH (4) Pneumonia (5) Status asthmaticus (6) Leukocytosis, unspecified (7) Hypertension (8) Hyponatremia (9) Multifocal pneumonia (10) Generalized weakness Problem List/Assessment/Plan ID Problem List: -- Generalized weakness -- Fall with head injury -- Multifocal pneumonia -- Leukocytosis -- COPD exacerbation -- Hyponatremia -- Stage 2 sacral ulcers -- Tobacco use disorder Assessment This is a 79 y.o. male with a past medical history of asthma, COPD, and depression, who presents with generalized weakness and a fall resulting in a forehead abrasion. He has been experiencing loss of appetite, no bowel movements, and shortness of breath. Laboratory findings show leukocytosis with a WBC count of 35.6??10?/L, thrombocytosis with platelets at 539??10?/L, hyponatremia with sodium at 120?mmol/L, BUN of 22?mg/dL, creatinine of 0.6?mg/dL, glucose of 102?mg/dL, lactic acid of 1.5?mmol/L, and hemoglobin of 13.7?g/dL. CT head showed no acute abnormality. Chest CT revealed thyromegaly and extensive alveolar and parenchymal infiltrates in both lungs, seen in the right middle lobe, lingula, and both lower lobes. He was started empirically on vancomycin and ceftriaxone; azithromycin was later added. The patient has stage 2 sacral ulcers, non-purulent and non-eroded. 09/13: On imaging his doppler lower extemity ultrasound shows a nonocclusive thrombo scene in the proximal left superficial fomoral vein. CT of lungs which showed no pulmonary embolism. diffuse abnormal tissue density in posterior media steinum extened from the upper thorax to diaphragmatic hiatus with small air bubbles thats increased in size compared to last exam, which could represent nectrotic adenopathy abscess or esophageal injury or rupture. component on the left at the diaphragmatic hiatus is recommended , smoking related lung disease , patchy eclecticism consolidation. 09/14: white count remains elevated at 33. Dr choi from oncology saw patinet and suggent proliferative disorder is a possiblility but will asses after antibiotics, as well as consider a biopsy after a few weeks. MRSA nares came negative. 09/15: white count is slowing coming down and a backorder of levofloxacin 09/16: white count is slowly downtrending now at 28, 2 liters nasal canula 09/17: Patient was able to produce and induced sputum sample and so far results are with no growth 09/21: White count continues to downtrend now at 13 09/22: white count is 17.2 , chest xray shows stable mass like opacities in both lungs , had a biopsy done of a left pair of veterebral mass , 5 core biopsies were obtained 09/23: white count is elevated at 18 , chest x-ray showed stable mass capacities throughout both lungs, patient is negative for HIV 09/24: Chest xray shows plural classifications and airspace opacities appear to be similar to prior examination. stable blunting of constophrenic agles , appears overall stable but on more oxygen then what he came in with . getting bicarbonate greater than 40 09/25: white count is 10.3 , significant improvement fungal serolgies and quant tb is negative 09/30: white count is 14.9 , thrombocytosis is 872 , concerned that patient is still having an undiagnosed infection that is not being treated adequately. Fungal serologies have come back negative , Tp came back negative and patient is tolerating antibiotic treatments 10/01: nonspecific inflammation on lymph node biopsy 10/04: Tolerating voriconazole 10/05: responding to voriconazole 10/06: Patient is improving on therapy Plan: - recommend 2 weeks of voriconazole , can be transitioned to oral at the same dose he has currently EOT 10/16/24 - reccomend continuing oral bactrum 1 double strength tab 2x a day for 2 weeks EOT 10/16/24 - repeat sputum culture -- Implement wound care for stage 2 sacral ulcers. -- Monitor vital signs and oxygen saturation. Isolation Precautions: Standard Plan discussed with: Other Dietary Evaluation Review Comments: 1) Consider SORAIDA 1 pkt BID for wounds 2) Continue current plan of care Expected Outcomes/Goals: F/U in 3-5 days Interpretation of weight loss: up to 20% in 1 year SHELBY OQUENDO MD Oct 10, 2024 22:19
[2024-10-11] VITALS (17 sets, daily range): BP systolic 95–146; BP diastolic 46–74; PULSE 75–101; RESP 18–22; TEMP 97.3–98; O2SAT 92–100
--- NOTE | 2024-10-11 12:54 | DVHDS2 ---
Discharge Summary Date of Admission Sep 10, 2024 at 06:43 Date of Discharge: Oct 10, 2024 Admitting Diagnosis Generalized weakness Labs/Diagnostic Data: Laboratory Results Test 10/09/24 16:03 10/09/24 06:21 10/06/24 08:29 10/04/24 10:20 Blood Gas Specimen Type Arterial Blood Gas Sample Site Left radial Blood Gas Patient Temperature 37.0 Arterial Blood Date Drawn [id number] Arterial Blood pH 7.440 (7.350-7.450) Arterial Blood Partial Pressure CO2 40.4 mmHg (35.0-48.0) Arterial Blood Partial Pressure O2 57.5 mmHg (83.0-108.0) Arterial Blood HCO3 26.8 mmol/L (21.0-28.0) Arterial Blood Oxygen Saturation 89.5 % (94.0-98.0) Arterial Blood Base Excess 2.5 mmol/L (-2.0-3.0) Arterial Blood Oxyhemoglobin 87.4 % (94.0-98.0) Arterial Blood Carboxyhemoglobin 1.9 % (0.5-1.5) Arterial Blood Methemoglobin 0.4 % (0.0-1.5) Sterling Test Yes Blood Gas Total Hemoglobin 7.80 g/dL (13.5-17.5) Blood Gas Modality Room air FiO2 % 21.0 White Blood Count 9.9 10^3/uL (4.4-10.8) Red Blood Count 2.82 10^6/uL (4.5-5.90) Hemoglobin 8.7 g/dL (13.5-17.5) Hematocrit 25.8 % (41.0-53.0) Mean Corpuscular Volume 91.6 fL (80.0-100.0) Mean Corpuscular Hemoglobin 30.8 pg (28.0-32.0) Mean Corpuscular Hemoglobin Concent 33.6 g/dL (32.0-36.0) Red Cell Distribution Width 14.9 % (11.8-14.3) Platelet Count 445 10^3/uL (140-450) Mean Platelet Volume 6.4 fL (6.9-10.8) Neutrophils (%) (Auto) 79.3 % (37.0-80.0) Lymphocytes (%) (Auto) 6.9 % (10.0-50.0) Monocytes (%) (Auto) 12.7 % (0.0-12.0) Eosinophils (%) (Auto) 0.7 % (0.0-7.0) Basophils (%) (Auto) 0.4 % (0.0-2.0) Neutrophils # (Auto) 7.9 10 ^3/uL (1.6-8.6) Lymphocytes # (Auto) 0.7 10 ^3/uL (0.4-5.4) Monocytes # (Auto) 1.3 10 ^3/uL (0-1.3) Eosinophils # (Auto) 0.1 10 ^3/uL (0-0.8) Basophils # (Auto) 0 10 ^3/uL (0-0.2) Nucleated Red Blood Cells 0.1 % Sodium Level 132 mmol/L (136-145) Potassium Level 4.8 mmol/L (3.5-5.1) Chloride Level 98 mmol/L (98-107) Carbon Dioxide Level 32 mmol/L (20-31) Anion Gap 2 (5-15) Blood Urea Nitrogen 12 mg/dL (9-23) Creatinine 0.41 mg/dL (0.700-1.30) Glomerular Filtration Rate Calc 110 mL/min (>90) BUN/Creatinine Ratio 29.3 (10.0-20.0) Serum Glucose 99 mg/dL (74-106) Calcium Level 8.9 mg/dL (8.7-10.4) Vancomycin Level Trough 19.5 ug/mL (5-10) Test 10/02/24 06:15 10/01/24 08:48 09/30/24 11:00 09/30/24 06:15 Differential Total Cells Counted 100.0 (100) Neutrophils % (Manual) 85 (37.0-80.0) Band Neutrophils % (Manual) 5 Lymphocytes % (Manual) 4 (10.0-50.0) Monocytes % (Manual) 5 (0-12) Eosinophils % (Manual) 1 (0-7) Basophils % (Manual) 0 (0.0-2.0) Metamyelocytes % (manual) 0 Myelocytes % (Manual) 0 Promyelocytes % (Manual) 0 Blast Cells % (Manual) 0 Reactive Lymphocytes 0 Platelet Estimate Markedly increased Red Blood Cell Morphology Normal Blood Gas Liter Flow 2.00 Prothrombin Time 13.0 sec (9.3-11.8) Prothrombin Time INR 1.25 (0.9-1.15) Activated Partial Thromboplast Time 29.7 SEC (24.5-34.5) Urine Color Yellow (Yellow) Urine Clarity Turbid (Clear) Urine pH 7.0 (5.0-9.0) Urine Specific [place] 1.032 (1.001-1.035) Urine Protein 1+ (Negative) Urine Ketones Negative (Negative) Urine Blood 1+ /uL (Negative) Urine Nitrite Negative (Negative) Urine Bilirubin Negative (Negative) Urine Urobilinogen 12 mg/dL (Negative) Urine Leukocyte Esterase Negative /uL (Negative) Urine RBC 30 /hpf (0 - 3) Urine WBC 9 /hpf (0 - 3) Urine Squamous Epithelial Cells Few /hpf (<5) Urine Bacteria None seen /hpf (None Seen) Urine Hyaline Casts Many /lpf (0 - 2) Urine Mucus Few (None Seen) Urine Glucose Normal mg/dL (Normal) Test 09/24/24 06:45 09/23/24 05:40 09/22/24 06:49 09/19/24 05:55 TB Test (QFT) Gold Plus Negative (Negative) TB Test (QFT) Nil 0.01 IU/mL (.) TB Test (QFT) Mitogen 9.14 IU/mL (.) TB Test (QFT) Antigen 1 0.00 IU/mL (.) TB Test (QFT) Antigen 2 0.01 IU/mL (.) TB Test (QFT) Criteria Comment (.) Blastomyces Ab Immunodiffusion Negative (Neg:<1:1) Coccidioides Antibody (Comp Fix) <1:2 (<1:2) HIV (1&2) Antibody Negative (Negative) Aspergillus flavus Antibody Negative (Neg:<1:1) Aspergillus fumigatus Antibody Negative (Neg:<1:1) Aspergillus niger Antibody Negative (Neg:<1:1) Total Bilirubin 0.4 mg/dL (0.2-1.0) Aspartate Amino Transferase (AST) 32 U/L (13-40) Alanine Aminotransferase (ALT) 12 U/L (7-40) Alkaline Phosphatase 80 U/L (46-116) Total Protein 5.6 g/dL (5.7-8.2) Albumin 2.4 g/dL (3.2-4.8) Smudge Cells 2 /100 WBC Large Platelets Few Giant Platelets Few Stomatocytes Few Test 09/16/24 05:45 09/15/24 06:23 09/14/24 08:00 09/12/24 15:55 Magnesium Level 2.1 mg/dL (1.6-2.6) Random Vancomycin Level 10.8 ug/mL (5-10) Urine Osmolality 405 mOsm/kg Urine Creatinine 40.31 mg/dL (30.0-125.0) Urine Protein/Creatinine Ratio 0.54 Urine Sodium 24 mmol/L (40-220) Urine Total Protein 21.7 mg/dL (1-14) Troponin I High Sensitivity 5 ng/L (</=54) Test 09/12/24 05:10 09/11/24 03:45 09/10/24 03:10 09/09/24 23:55 Serum Osmolality 277 mOsm/kg (278-298) Triglycerides Level 70 mg/dL (< 150) Cholesterol Level 80 mg/dL (< 200) LDL Cholesterol 42 mg/dL (< 100) HDL Cholesterol 16 mg/dL (40-59) Clumped Platelets Few Lactic Acid Level 1.5 mmol/L (0.4-2.0) B-Type Natriuretic Peptide 121.45 pg/mL (0-100) Other Laboratory Tests 10/09/24 06:21 10/06/24 08:29 Brief Hx & Hospital Course: History of Present Illness The patient is a 79-year-old male with past medical history of asthma, COPD, and depression who presented to [facility] ED for evaluation of generalized weakness. Patient was noted 4 days of generalized weakness, loss of appetite, decreased urine output, no bowel movement, associated shortness of breaths, had trip and fall earlier today hitting his on the floor with sustained abrasion on his forehead. Patient was seen and evaluated in the ED, laboratory data shows WBC 35.6, platelets 539, sodium 120, potassium 4.2, BUN 22, creatinine 0.60, glucose 102, BNP 121.45, calcium nine five, blood pressure 192/82 trending down to 152/68, heart rate 92 temperature 98.3 F, O2 saturation 93% on oxygen. Head CT showed no acute intracranial abnormality. Chest CT revealing thyromegaly extensive centrilobular and paraseptal emphysema is seen in both lungs, fibro atelectatic opacities seen in the right middle lobes, lingula and both lower lobes, please review chest CT results. Patient was on IV antibiotic regimen vancomycin, please see medication orders section in the computer. On my assessment, patient denies chest pain, no headache, no dizziness, no diaphoresis currently on oxygen, no nausea, no vomiting, no fever, no chills. Patient was admitted for further evaluation and medical management. Course of hospitalization: Patient had infectious disease consultation given findings on CT scan of the chest. Pulmonary consultation was also placed. Patient received empiric antibiotic therapy as well as antifungal therapy. Wound care consultation was obtained regarding patient's decubitus ulcer to sacrum. Patient was also physical therapy. Clinically, the patient has improved somewhat, with the patient's O2 supplementation decreased to 1-2 liters/minute. Patient continues to have activity intolerance given his advanced bullous emphysema. Long discussion was made with the patient regarding plan of care. This time he was agreeable to be discharged home on hospice in addition to having a facility assisting with his medical needs. Patient will be continued on antibiotic therapy per the hospital provider. All questions answered. Physical examination General: Alert and Oriented x3. No acute distress. Well-nourished. Eyes: EOMI. Anicteric. HENT: Moist mucous membranes. Lungs: Clear to auscultation bilaterally. No accessory muscle use. Cardiovascular: Regular rate and rhythm. No murmur. No JVD. Abdomen: Soft, non-tender and non-distended. No palpable masses. Extremities: No edema. Non-tender. Skin: No rashes or lesions. Warm. Stage IV decubitus ulcer Neurologic: No focal neurological deficits. CN II-XII grossly intact, but not individually tested. Psychiatric: Cooperative. Appropriate mood and affect. Total time spent with patient discussing and formulating plan of care: 35 minutes. This medical document was created using an electronic medical record system with [employer] system. Although this document has been carefully reviewed, there may still be some phonetic and typographical errors. These areas are purely typographical due to imperfections of the software programs, and do not reflect any compromise in the patient's medical care. Consults/Reason for consult Infectious disease: Sepsis Pulmonary: COPD Condition at Discharge: Poor Final Diagnosis/Problems List Acute respiratory failure Secondary Diagnosis: -sepsis -pneumonia -necrotizing lymph node -bullous emphysema -acute hypoxic respiratory failure -nicotine dependence -atelectasis -hyponatremia -pulmonary mass, rule out CA -DVT to cephalic vein -Deep tissue injury to coccyx -cachexia Discharge Disposition: Hospice - Home Discharge Instruct/Medications Diet: Cardiac 2g Na,low cholest Activity: No Restrictions, As Tolerated Medications: Per accepting Hospice 36 Discharge Statement: "Patient was advised to return to the ER or call 911 if any headaches, dizziness, shortness of breath, chest pain, abdominal pain, bleeding, fevers, or worsening of medical condition. Patient was counseled about treatment plan, medications, possible side effects, patientverbalized understanding. All questions were answered to the best of my ability. This discharge took greater then 30 minutes in planning, reviewing documentation, counseling the patient, and discussing with other team members." ASSESSMENT ASSESSMENT Assessment Acute respiratory failure Date of Service: Oct 11, 2024 Billing Provider: KYUNG KENDRICK NP Common Visit Codes: [id number] INP/OBS CARE(HIGH), 11217-MBX/OBS DISCH DAY >30min KYUNG KENDRICK NP Oct 11, 2024 12:54
--- NOTE | 2024-10-11 22:23 | DVHPN2 ---
Progress Note - Dictate Date Seen: Oct 11, 2024 Medical Necessity Reason Pt with a Central, PICC or Fol: Yes The following are medically ne: Lara Catheter Reason for lara catheter: Strict I&O Subjective Patient seen and examined at bedside. Remains on supplemental oxygen Overnight events reviewed. vital signs Vital Sign Date Time Temp Pulse Resp B/P (MAP) Pulse Ox O2 Delivery O2 Flow Rate FiO2 10/11/24 17:00 98.0 81 19 133/74 (93) 98 98.0 10/11/24 14:11 Nasal Cannula* 3 32 Total Intake and Output 10/10/24 10/10/24 10/11/24 15:00 23:00 07:00 Intake Total 272 ml 400 ml 472 ml Output Total 900 ml 300 ml Balance 272 ml -500 ml 172 ml medications Current Medications Medications Dose Ordered Sig/Cathy Route Start Time Stop Time Status Last Admin Dose Admin Vancomycin HCl 0 ml @ 0 mls/hr UD IV 09/10/24 06:30 Cancel Enoxaparin Sodium 70 mg Q12HR SC 09/13/24 22:00 UNV Vancomycin HCl 0 ml @ 0 mls/hr UD IV 09/29/24 23:15 Cancel Acetaminophen 650 mg UD PO 10/01/24 16:15 Cancel Diphenhydramine HCl 25 mg UD IV 10/01/24 16:15 Cancel Vancomycin HCl 250 ml @ 250 mls/hr Q18H IV 10/05/24 05:00 Cancel objective Gen.: Patient lying in bed in no apparent distress. On supplemental oxygen. Head: Normocephalic, atraumatic. Eyes: EOMI/PERRLA. Ears: Normal hearing. Normal anatomy. Neck/trachea: Trachea midline, supple. Nose: Normal external anatomy. Mouth: Moist mucous membranes. Chest: Decreased air entry bilaterally. No wheezing or rhonchi. Positive crackles. Cardiovascular: Positive S1, positive S2. Regular rate and rhythm. Abdomen: Positive bowel sounds in all 4 quadrants. Soft, non-tender, non- distended. : Deferred. Rectal: Deferred. Skin: Warm, dry. Intact. Extremities: 2+ radial pulses bilaterally. No lower extremity edema. Neuro: Awake, alert, oriented x3. No gross motor or sensory deficits. Cranial nerves II through XII intact. Gait not assessed. laboratory and microbiology Laboratory Tests 10/09/24 06:21 10/06/24 08:29 Test 10/06/24 08:29 Range/Units Serum Glucose 99 74-106 mg/dL Assessment/Plan Impression: Acute hypoxic respiratory failure Pneumonia COPD Emphysema, paraseptal and centrilobular Fibroid atelectatic opacities in the right middle lobe, lingula and bilateral lower lobes. Calcified pleural plaques in the right upper lobe and posterior aspects of the lower lobes bilaterally Pleural effusions, Atelectasis Hyponatremia Events: Remains on supplemental O2 at 3 LPM NC. Taper O2 as tolerated WBC within normal limits. Incentive spirometry NTS PRN. Continue antibiotics - Bactrim ID recommendations appreciated. Eliquis BID. Pain control Avoid oversedation Monitor platelet count. Wound care Head of bed elevation Aspiration precautions Continue PT. Lara d/t urinary retention. HERSON resolved after Lara placement - HERSON likely due to urine retention. Diurese w/ Lasix as tolerated Monitor renal function Maintain euvolemia Plan for discharge on hospice. Disposition per hospitalist. Labs and imaging reviewed. Rest of plan as noted below. Plan: Supplemental oxygen Keep O2 saturation above 92% CT chest report and images reviewed. Emphysematous changes. Fibro atelectatic opacity in the right middle lobe, lingula and bilateral lower lobes. Calcified plaques in the right upper and bilateral lower lobes and posteriorly. Minimal pleural effusions and atelectasis. Antibiotics. Monitor WBC count. Blood cultures show no growth. Continue bronchodilators as needed. Pain control. Avoid over-sedation. Incentive spirometry. Maintain euvolemia Monitor renal function. Monitor electrolytes. Supplement as necessary. Hyponatremia - Monitor sodium DVT prophylaxis -Eliquis Prognosis: Guarded given multiple comorbidities. Rest of plan per hospitalist and other consultants. Thank you Dr. Reed for allowing me to participate in this patient's care. Further recommendations will depend on patient's clinical course. Please do not hesitate to contact me if you have any questions or concerns. This medical document was created using an electronic medical record system with [employer] system. Although this document has been carefully reviewed, there may still be some phonetic and typographical errors. These areas are purely typographical due to imperfections of the software programs, and do not reflect any compromise in the patient's medical care. Dietary Evaluation Review Comments: 1) Consider SORAIDA 1 pkt BID for wounds 2) Continue current plan of care Expected Outcomes/Goals: F/U in 3-5 days Interpretation of weight loss: up to 20% in 1 year Plan discussed with: Patient, Other (JEANNINE Whittaker) TORITO URBAN MD Oct 11, 2024 22:23
== END 2024-10-11 19:40 | disposition hospice, home (50) | DRG 853 ==
LOC: ER 23:29 → EDBD 23:29 → TELE 09-10 06:43 → TELE-CENTR 09-10 10:32 → TELE-EAST 09-22 16:50 → EAST 10-06 13:13
PROVIDERS: ADMIT Nurse Practitioner Family; ATTEND Nurse Practitioner Acute Care
PROC: 07BC3ZX Excision of Pelvis Lymphatic, Percutaneous Approach, Diagnostic (ICD-10-PCS; principal; 2024-09-21)
PROC: 02HV33Z Insertion of Infusion Device into Superior Vena Cava, Percutaneous Approach (ICD-10-PCS; 2024-09-30)
PROC: B548ZZA Ultrasonography of Superior Vena Cava, Guidance (ICD-10-PCS; 2024-09-30)
DX: A41.9 Sepsis, unspecified organism (principal); J15.69 Pneumonia due to other Gram-negative bacteria; J96.01 Acute respiratory failure with hypoxia; J15.9 Unspecified bacterial pneumonia; E87.1 Hypo-osmolality and hyponatremia; J90 Pleural effusion, not elsewhere classified; J44.1 Chronic obstructive pulmonary disease with (acute) exacerbation; I82.401 Acute embolism and thrombosis of unspecified deep veins of right lower extremity; R64 Cachexia; N17.9 Acute kidney failure, unspecified; J44.0 Chronic obstructive pulmonary disease with (acute) lower respiratory infection; I10 Essential (primary) hypertension; S00.81XA Abrasion of other part of head, initial encounter; W01.0XXA Fall on same level from slipping, tripping and stumbling without subsequent striking against object, initial encounter; L98.429 Non-pressure chronic ulcer of back with unspecified severity; J43.2 Centrilobular emphysema; F17.210 Nicotine dependence, cigarettes, uncomplicated; D75.839 Thrombocytosis, unspecified; F32.A Depression, unspecified; Z79.899 Other long term (current) drug therapy; Z82.49 Family history of ischemic heart disease and other diseases of the circulatory system; Z83.3 Family history of diabetes mellitus; Z82.3 Family history of stroke; Z79.01 Long term (current) use of anticoagulants; Y93.89 Activity, other specified; Y92.89 Other specified places as the place of occurrence of the external cause; Y99.8 Other external cause status
CPT/HCPCS: 10005; 36415; 36569; 36600; 70450; 71045; 71250; 71260; 71275; 74150; 76937; 77012; 80048; 80053; 80061; 80202; 81001; 82565; 82570; 82805; 83605; 83735; 83880; 83930; 83935; 84156; 84300; 84484; 85007; 85025; 85027; 85610; 85730; 86606; 86612; 86635; 86698; 86703; 87040; 87070; 87077; 87081; 87086; 87205; 93005; 93306; 93970; 93971; 94640; 97110; 97116; 97163; 97530; 99291; G0378; J0692; J1450; J1956; J2003; J2248; J2250; J2405; J2543; J3465; J3490; J7060